=== PATIENT | male | born 1980 | race Two or more races ===

== ENCOUNTER 2023-12-21 15:14 | Inpatient (IN) | payer MEDICAID, SELFPAY ==
[2023-12-21] VITALS (10 sets, daily range): BP systolic 86–153; BP diastolic 52–92; PULSE 89–125; RESP 16–20; TEMP 36.5–38; O2SAT 93–98; BMI 32.8; BMI 34.4
--- NOTE | 2023-12-21 15:41 | XR_ITS ---
Examination: PA lateral chest 2 views Technique: Upright PA lateral chest 2 views Exam date and time: December 21, 2023 1552 hrs. Indications: Epigastric pain chest pain today Findings: No significant cardiac enlargement Mild prominence of the pulmonary vasculature. No lobar pneumonia or pulmonary edema Impression: Mild prominence of the pulmonary vasculature
--- NOTE | 2023-12-21 15:41 | XR_ITS ---
Examination: CT abdomen with intravenous contrast CT pelvis with intravenous contrast 2-D coronal reconstructions 2-D sagittal reconstructions Date and time of exam:December 21, 2023 1747 hrs. Comparison July 12, 2020 Indications: Onset left lower abdominal pain today, history diverticulitis. CTDI: vol (mGy) 7.99 DLP: (mGycm) 498 Technique: Multiple axial sections of the abdomen and pelvis have been obtained. 64 slice high-resolution scanner used. 3 mm axial sections have been obtained, post intravenous injection 60 cc Isovue-370 2-D sagittal, coronal reconstructions obtained. Low dose protocols were performed. One or more of the following dose reduction techniques were used; automated exposure control, adjustment of the mA and/or KV according to patient size, use of iterative reconstruction technique. Findings: Diffuse fatty infiltration throughout the liver No gallstones Spleen not enlarged No pancreatic or adrenal mass No renal or ureteral calculi, no hydronephrosis Aorta normal size The distal appendix is enlarged with marked inflammatory change There is reactive small bowel ileus No significant prostatomegaly Bladder intact Moderate osteopenia Impression: Findings are most consistent with prominent acute appendicitis The patient should be clinically correlated
--- NOTE | 2023-12-21 15:43 | PD.EDRME ---
Rapid Medical Screening Exam [facility] Arrival date/time: 12/21/23 15:14 Chief Complaint: Abdominal Pain Time Seen by Provider: 12/21/23 15:33 Vital signs: Vital Signs Temperature 98.9 F 12/21/23 15:21 Pulse Rate 89 12/21/23 15:21 Respiratory Rate 18 12/21/23 15:21 Blood Pressure 153/88 H 12/21/23 15:21 Pulse Oximetry (%) 98 12/21/23 15:21 Oxygen Delivery Method Room Air 12/21/23 15:21 [facility] Narrative: 43-year-old male here for sudden abdominal pain that began to the epigastric area now diffuse. States radiating to his back. States now having trouble going to have a bowel movement or urinating. Denies drinking or drug use. Denies fever. Denies history of gallstones or kidney stones. Denies history of abdominal surgery. Had 2 episodes of vomiting but no diarrhea no fever
[2023-12-21] MEDS: HYDROcodone/APAP 5/325 TABLET 1 TAB PO (15:50)
[2023-12-21] MEDS: KETOROLAC INJ 60 MG/2 ML VIAL 30 MG IM (15:51)
[2023-12-21 15:53] LABS: Base Excess, Venous 2 (-3-3); Lactate (Lactic Acid) 1.7 mMol/L (0.4-2.0); O2 Saturation, Venous 92 % (96-97); PCO2, Venous 35 mmHg (36-56); PO2, Venous 56 mmHg (15-58); pH, Venous 7.48 (7.33-7.66)
[2023-12-21 15:55] LABS: Basophils % (Auto) 0 % (0-2.5); Eosinophils # (Auto) 0.2 Thou/mm3 (0.0-0.5); Eosinophils % (Auto) 1 % (0-10); Hematocrit 42.1 % (41.0-53.0); Hemoglobin 14.6 g/dL (13.5-16.0); Immature Granulocytes % (Auto) 0 % (0-0); Immature Granulocytes Auto 0.06 Thou/mm3 (0.00-0.00); Lymphocytes # (Auto) 5.1 Thou/mm3 (1.0-4.8); Lymphocytes % (Auto) 29 % (10-50); Mean Corpuscular HGB Conc 34.7 g/dl (31.0-37.0); Mean Corpuscular Hemoglobin 28.3 pg (25.0-35.0); Mean Corpuscular Volume 82 fL (80-100); Monocytes # (Auto) 1.8 Thou/mm3 (0.0-0.8); Monocytes % (Auto) 10 % (0-12); Neutrophils # (Auto) 10.3 Thou/mm3 (1.8-7.7); Neutrophils % (Auto) 59 % (37-80); Nucleated Red Blood Cell % 0 /100 WBC (0); Platelet Count 293 Thou/mm3 (140-440); RDW Standard Deviation 39.7 fL (35.1-43.9); Red Blood Count 5.16 Miln/mm3 (4.50-5.90); White Blood Count 17.5 Thou/mm3 (3.8-10.6)
[2023-12-21 16:20] LABS: Alanine Aminotransferase 31 U/L (10-49); Albumin, Serum 4.6 gm/dL (3.5-5.0); Albumin/Globulin Ratio 1.6 (1.2-2.2); Alkaline Phosphatase 93 U/L (46-116); Anion Gap 7 (7-16); Aspartate Amino Transferase 17 U/L (0-34); BUN/Creatinine Ratio 10 Ratio (12-20); Bilirubin,Total 0.8 mg/dL (0.3-1.2); Blood Urea Nitrogen 9 mg/dL (9-23); Calcium 9.3 mg/dL (8.3-10.6); Calcium (Corrected) 9.3 mg/dL (8.5-10.1); Carbon Dioxide 25.6 mMol/L (20.0-31.0); Chloride 102 mMol/L (98-107); Creatinine (Component) 0.9 mg/dL (0.6-1.3); Estimated Creatinine Clearance 106.2 mL/min (>60); Globulin 2.9 gm/dL (2.3-3.5); Glucose 138 mg/dL (74-106); Lipase 30 U/L (12-53); Osmolality,Calculated 270 (275-295); Potassium 3.2 mMol/L (3.4-5.1); Sodium 135 mMol/L (136-145); Total Protein 7.5 gm/dL (5.7-8.2); eGFR > 60 See Note
[2023-12-21] MEDS: POTASSIUM CHLORIDE 10% 20 MEQ/15 ML UDC 40 MEQ PO (17:03)
[2023-12-21 17:05] LABS: Collection Type, Urine Clean Catch
[2023-12-21 17:15] LABS: Bilirubin,Urine Negative (Negative); Blood,Urine Negative (Negative); Calcium Oxalate Crystals,Urine 1+; Color,Urine Yellow (Lt Yel-Yel); Glucose, Urine Negative (Negative); Ketones,Urine Negative (Negative); Leukocyte Esterase,Urine Negative (Negative); Nitrite,Urine Negative (Negative); Protein,Urine 1+ (Neg - Trace); RBC,Urine 1 /hpf (0-3); Specific Gravity,Urine 1.028 (1.001-1.035); Squamous Epithelial Cell,Urine < 1 /hpf (0-5); WBC,Urine 2 /hpf (0-5)
[2023-12-21 17:17] LABS: Amphetamine/Methamp Scrn,U Negative (Negative); Barbiturate Screen,Urine Negative (Negative); Benzodiazepines Screen,Urine Negative (Negative); Benzoylecgonine Screen, Ur Negative (Negative); Fentanyl Screen,Urine Negative (Negative); Opiate Screen,Urine Negative (Negative); THC Screen,Urine Negative (Negative)
[2023-12-21 17:20] LABS: Clarity,Urine Turbid (Clear/Hazy)
[2023-12-21] MEDS: MORPHINE SULF INJ 10 MG/ML VIAL 4 MG IVP (17:22)
[2023-12-21] MEDS: RINGERS LACTATED 1000 ML 1,000 ML IV (17:23)
--- NOTE | 2023-12-21 17:40 | PC.NURSE ---
pt taken to CT.
--- NOTE | 2023-12-21 17:50 | EDNOTE_ITS ---
ED General RME/HPI General Chief complaint: Abdominal Pain Stated complaint: ABDOMINAL PAIN Time Seen by Provider: 12/21/23 15:33 Arrival date/time: 12/21/23 15:14 RME / HPI RME / HPI narrative: 43-year-old male here for sudden abdominal pain that began to the epigastric area now diffuse. States radiating to his back. States now having trouble going to have a bowel movement or urinating. Denies drinking or drug use. Denies fever. Denies history of gallstones or kidney stones. Denies history of abdominal surgery. Had 2 episodes of vomiting but no diarrhea no fever This section includes all my notes and documentations, including HPI, PE, and ED course. Werner Smith MD HPI: 43-year-old male here with a couple day history of abdominal pain with severe nausea. Has trouble localizing the pain. And describing the quality and quantity of the pain. Uncertain about exacerbating factors or relieving factors. No fever. No urinary symptoms. No history of abdominal surgery. No other complaints. ROS: Gastrointestinal: negative except as documented in HPI. Genitourinary: negative except as documented in HPI. Musculoskeletal: negative except as documented in HPI. Skin: negative except as documented in HPI. Neurological: negative except as documented in HPI. Physical Exam: General: Alert and oriented. In obvious pain. Eyes: Conjunctivae and lids clear. Lungs: No respiratory distress. Abdomen: Soft with diffuse tenderness, difficult to localize. Normal bowel sounds. No distension. No rebound or guarding. Back: No CVA tenderness. Skin: Warm and dry. Neuro: Alert and oriented X 3. Cranial Nerves II-XII grossly intact. No peripheral motor deficits. Musculoskeletal: All major joints and bones are not tender with no limited ROM. Treatments and diagnostics ordered. At 6 PM, the care of the patient was transferred to Dr Johnson. Werner Smith MD Related Data Previous Rx's ?Medication ?Instructions ?Recorded dicyclomine 20 mg tablet 20 mg PO QID #60 tabs 07/12/20 hydrocortisone acetate 25 mg 25 mg CO BID #24 ea 09/13/20 rectal suppository (Anusol-HC) Allergies Allergy/AdvReac Type Severity Reaction Status Date / Time No Known Allergies Allergy Verified 09/13/20 16:17 Course Quality Measures none Orders Category Date Time Status CT Screening NOW Care 12/21/23 15:42 Active IV [Insert IV] NOW Care 12/21/23 15:[address] abdomen pelvis w con Stat Exams 12/21/23 15:41 Taken XR chest 2V Stat Exams 12/21/23 15:41 Completed CBC Stat Lab 12/21/23 15:50 Completed CMP [Comprehensive Metabolic Panel] Stat Lab 12/21/23 15:50 Completed Drug Screen,Urine Stat Lab 12/21/23 16:24 Completed Lactic Acid [Lactate (Lactic Acid)] Stat Lab 12/21/23 15:50 Completed Lipase Stat Lab 12/21/23 15:50 Completed Procalcitonin Stat Lab 12/21/23 15:50 Completed UA [Urinalysis] Stat Lab 12/21/23 16:58 Completed VBG [Venous Blood Gas] Stat Lab 12/21/23 15:50 Completed HYDROcodone*/APAP 5/325 [[place] 5/325] Med 12/21/23 15:43 Discontinued 1 tab PO X1 ONE KCL 10% Liq UDC 15 ML Med 12/21/23 16:39 Discontinued 40 meq PO X1 ONE Ketorolac Inj [Toradol Inj] Med 12/21/23 15:41 Discontinued 30 mg IM X1 ONE Morphine Inj Med 12/21/23 17:18 Discontinued 4 mg IVP X1 ONE Ringers Lactated 1000 ml [Lactated Ringers] 1,000 ml Med 12/21/23 17:18 Active IV 1,000 mls/hr Vital Signs Vital signs: Vital Signs Temperature 98.9 F 12/21/23 15:21 Pulse Rate 89 12/21/23 15:21 Respiratory Rate 18 12/21/23 15:21 Blood Pressure 153/88 H 12/21/23 15:21 Pulse Oximetry (%) 98 12/21/23 15:21 Oxygen Delivery Method Room Air 12/21/23 15:21 [facility] Patient data External records reviewed:: None Clinical information provided by:: patient Social determinants that could affect healthcare access:: none Patient has the following chronic illnesses:: None How is presenting disease/condition affected by chronic disease/condition?: no chronic disease Evaluation data The following diagnostics were reviewed and interpreted by me:: lab results and radiology exam(s) Lab and/or radiology exams considered but not ordered:: None Interpretation Summary: Diagnostics pending Medications Medications considered but not ordered:: None Medication administrations:: Medication Administration History Lactated Ringer's (Lactated Ringers) 1,000 mls @ 1,000 mls/hr IV .Q1H ONE Stop: 12/21/23 18:17 Last Admin: 12/21/23 17:23 Dose: 1,000 mls/hr Documented By: MARIANNE Discontinued Medications Hydrocodone Bitart/Acetaminophen (Hydrocodone/Apap 5/325 Tablet) 1 tab PO X1 ONE Stop: 12/21/23 15:44 Last Admin: 12/21/23 15:50 Dose: 1 tab Documented By: MARIE Ketorolac Tromethamine (Ketorolac Inj 60 Mg/2 Ml Vial) 30 mg IM X1 ONE Stop: 12/21/23 15:42 Last Admin: 12/21/23 15:51 Dose: 30 mg Documented By: MARIE Morphine Sulfate (Morphine Sulf Inj 10 Mg/Ml Vial) 4 mg IVP X1 ONE Stop: 12/21/23 17:19 Last Admin: 12/21/23 17:22 Dose: 4 mg Documented By: MARIANNE Potassium Chloride (Potassium Chloride 10% 20 Meq/15 Ml Udc) 40 meq PO X1 ONE Stop: 12/21/23 16:40 Last Admin: 12/21/23 17:03 Dose: 40 meq Documented By: MARIANNE See chart Consultations Consultation(s) initiated? (list below): No Diagnosis Differential Diagnosis ED Complaint MDM: Appendicitis, biliary colic, colitis, SBO, UTI, pyelonephritis, GERD, PUD Most likely diagnosis given after review of the tests above:: Diagnostic tests pending Admission Indicated Admission indicated?: not indicated Explain why admission is indicated or not indicated:: Diagnostic tests pending Admission Request Was there a request for admission?: No Disposition Plan Disposition Plan: other (specify) (Diagnostics pending) Medical Decision Making Differential Diagnosis Differential Diagnosis: Appendicitis, biliary colic, colitis, SBO, UTI, pyelonephritis, GERD, PUD Lab Data 12/21/23 15:50 12/21/23 15:50 Labs: Lab Results 12/21/23 12/21/23 12/21/23 Range/Units 15:50 16:24 16:58 WBC 17.5 H (3.8-10.6) Thou/mm3 RBC 5.16 (4.50-5.90) Miln/mm3 Hgb 14.6 (13.5-16.0) g/dL Hct 42.1 (41.0-53.0) % MCV 82 (80-100) fL MCH 28.3 (25.0-35.0) pg MCHC 34.7 (31.0-37.0) g/dl RDW Std Deviation 39.7 (35.1-43.9) fL Plt Count 293 (140-440) Thou/mm3 Neut % (Auto) 59 (37-80) % Lymph % (Auto) 29 (10-50) % [place] % (Auto) 10 (0-12) % Eos % (Auto) 1 (0-10) % Baso % (Auto) 0 (0-2.5) % Neut # (Auto) 10.3 H (1.8-7.7) Thou/mm3 Lymph # (Auto) 5.1 H (1.0-4.8) Thou/mm3 [place] # (Auto) 1.8 H (0.0-0.8) Thou/mm3 Eos # (Auto) 0.2 (0.0-0.5) Thou/mm3 Baso # (Auto) 0.0 (0.0-0.2) Thou/mm3 Immature Gran # (Auto) 0.06 H (0.00-0.00) Thou/mm3 Absolute Nucleated RBC 0.00 (0.00-0.00) Thou/mm3 Immature Gran % 0 (0-0) % Nucleated RBC % 0 (0) /100 WBC VBG pH 7.48 (7.33-7.66) VBG pCO2 35 L (36-56) mmHg VBG pO2 56 (15-58) mmHg VBG O2 Sat ([place]) 92 L (96-97) % VBG Base Excess 2 (-3-3) Sodium 135 L (136-145) mMol/L Potassium 3.2 L (3.4-5.1) mMol/L Chloride 102 (98-107) mMol/L Carbon Dioxide 25.6 (20.0-31.0) mMol/L Anion Gap 7 (7-16) BUN 9 (9-23) mg/dL Creatinine 0.9 (0.6-1.3) mg/dL Estim Creat Clear Calc 106.2 (>60) mL/min eGFR > 60 (60 - ) See Note BUN/Creatinine Ratio 10 L (12-20) Ratio Glucose 138 H (74-106) mg/dL Calculated Osmolality 270 L (275-295) Lactic Acid 1.7 (0.4-2.0) mMol/L Calcium 9.3 (8.3-10.6) mg/dL Corrected Calcium 9.3 (8.5-10.1) mg/dL Total Bilirubin 0.8 (0.3-1.2) mg/dL AST 17 (0-34) U/L ALT 31 (10-49) U/L Alkaline Phosphatase 93 (46-116) U/L Total Protein 7.5 (5.7-8.2) gm/dL Albumin 4.6 (3.5-5.0) gm/dL Globulin 2.9 (2.3-3.5) gm/dL Albumin/Globulin Ratio 1.6 (1.2-2.2) Lipase 30 (12-53) U/L Procalcitonin 0.10 (0.0-0.49) ng/ml Ur Collection Type Clean Catch Urine Color Yellow (Lt Yel-Yel) Urine Clarity Turbid A (Clear/Hazy) Urine pH 6.0 (5.0-7.0) Ur Specific [place] 1.028 (1.001-1.035) Urine Protein 1+ A (Neg - Trace) Urine Glucose (UA) Negative (Negative) Urine Ketones Negative (Negative) Urine Blood Negative (Negative) Urine Nitrite Negative (Negative) Urine Bilirubin Negative (Negative) Urine Urobilinogen (Auto) 2.0 (0.0-1.0) mg/dL Ur Leukocyte Esterase Negative (Negative) Urine RBC 1 (0-3) /hpf Urine WBC 2 (0-5) /hpf Ur Squamous Epith Cells < 1 (0-5) /hpf Calcium Oxalate Crystal 1+ A (None) Urine Bacteria None (None) Urine Opiates Screen Negative (Negative) Urine Fentanyl Screen Negative (Negative) Ur Barbiturates Screen Negative (Negative) U Amphetamin/Meth Scrn Negative (Negative) U Benzodiazepines Scrn Negative (Negative) U Cocaine Metab Screen Negative (Negative) U Marijuana (THC) Screen Negative (Negative) Discharge Plan Prescriptions/Referrals Prescriptions/Med Rec: No Action dicyclomine 20 mg tablet 20 mg PO QID Qty: 60 0RF hydrocortisone acetate [Anusol-HC] 25 mg suppository 25 mg CO BID Qty: 24 0RF Referrals: Nayan Leung MD [Primary Care Provider] - In 1 week Problem List Clinical Impression: Abdominal pain Patient/Caregiver Discharge Instructions Print Language: Faroese
--- NOTE | 2023-12-21 18:15 | PC.NURSE ---
PROVIDER MADE AWARE OF TEMP OF 100.4.
--- NOTE | 2023-12-21 19:20 | EDNOTE_ITS ---
Emergency Room Addendum <Lilliam Agustin - Last Filed: 12/21/23 19:55> Addendum Narrative: 1800: Care assumed from Dr. Smith, the previous shift emergency physician. Past medical, surgical, social and family history reviewed. Vitals and home medications reviewed. I will assume the care of the patient at this time, pending diagnostic tests and final disposition. Please refer to the emergency department record for history and examination from initial visit.? HPI 43 year old male, otherwise healthy, no past surgeries, who started around yesterday noon with periumbilical pain. It has migrated to the lower both quadrants. He states left and right are hurting him. And he decreased difficulty having a bowel movement. Physical exam: Patient has got mild tenderness of his abdomen with exquisite right lower quadrant tenderness with focal rebound. CT abdomen/ pelvis, my interpretation: appears to have a ruptured appendix with significant sequel. Inflammation. CT results are pending. 1950: Discussed test HPI, PMHx, lab, radiology results and/or management with Dr. Rubio. Will review the CT results. Patient remains clinically stable throughout the emergency department visit. Re- assessment at the time of disposition demonstrates that the patient is in no acute distress. We reviewed all the results, analysis, and treatment plans. Patient is amenable to discharge. Strict return precautions were outlined. Patient was discharged in stable condition. RADIOLOGY: Procedure(s): CT abdomen pelvis w con Accession Number(s): [id number] cc: Lucía Kramer PA-C; Nayan Leung MD; Jude Caceres MD~ Examination: CT abdomen with intravenous contrast CT pelvis with intravenous contrast 2-D coronal reconstructions 2-D sagittal reconstructions Date and time of exam:December 21, 2023 1747 hrs. Comparison July 12, 2020 Indications: Onset left lower abdominal pain today, history diverticulitis. CTDI: vol (mGy) 7.99 DLP: (mGycm) 498 Technique: Multiple axial sections of the abdomen and pelvis have been obtained. 64 slice high-resolution scanner used. 3 mm axial sections have been obtained, post intravenous injection 60 cc Isovue-370 2-D sagittal, coronal reconstructions obtained. Low dose protocols were performed. One or more of the following dose reduction techniques were used; automated exposure control, adjustment of the mA and/or KV according to patient size, use of iterative reconstruction technique. Findings: Diffuse fatty infiltration throughout the liver No gallstones Spleen not enlarged No pancreatic or adrenal mass No renal or ureteral calculi, no hydronephrosis Aorta normal size The distal appendix is enlarged with marked inflammatory change There is reactive small bowel ileus No significant prostatomegaly Bladder intact Moderate osteopenia Impression: Findings are most consistent with prominent acute appendicitis The patient should be clinically correlated Dictated By: Jude Caceres MD <Brady Johnson MD - Last Filed: 12/21/23 23:30> Addendum Narrative: 1800: Care assumed from Dr. Smith, the previous shift emergency physician. Past medical, surgical, social and family history reviewed. Vitals and home medications reviewed. I will assume the care of the patient at this time, pending diagnostic tests and final disposition. HPI 43 year old male, otherwise healthy, no past surgeries, who started around yesterday noon with periumbilical pain. It has migrated to the lower both quadrants. He states left and right are hurting him. And he decreased difficulty having a bowel movement. Physical exam: Patient has got mild tenderness of his abdomen with exquisite r ight lower quadrant tenderness with focal rebound, positive rovsig/psoas CT abdomen/ pelvis, my interpretation: appears to have a ruptured appendix with significant sequel. Inflammation. CT results are pending. 1950: Discussed test HPI, PMHx, lab, radiology results and/or management with Dr. Rubio. For him clinically with concern for rupture or perirupture of his appendix despite the CT results. Will review the CT results. Patient remains clinically stable throughout the emergency department visit. Re- assessment at the time of disposition demonstrates that the patient is in no acute distress. We reviewed all the results, analysis, and treatment plans. Patient is amenable to discharge. Strict return precautions were outlined. Patient was discharged in stable condition. RADIOLOGY: Procedure(s): CT abdomen pelvis w con Accession Number(s): [id number] cc: Lucía Kramer PA-C; Nayan Leung MD; Jude Caceres MD~ Examination: CT abdomen with intravenous contrast CT pelvis with intravenous contrast 2-D coronal reconstructions 2-D sagittal reconstructions Date and time of exam:December 21, 2023 1747 hrs. Comparison July 12, 2020 Indications: Onset left lower abdominal pain today, history diverticulitis. Technique: Multiple axial sections of the abdomen and pelvis have been obtained. 64 slice high-resolution scanner used. 3 mm axial sections have been obtained, post intravenous injection 60 cc Isovue-370 2-D sagittal, coronal reconstructions obtained. Low dose protocols were performed. One or more of the following dose reduction techniques were used; automated exposure control, adjustment of the mA and/or KV according to patient size, use of iterative reconstruction technique. Findings: Diffuse fatty infiltration throughout the liver No gallstones Spleen not enlarged No pancreatic or adrenal mass No renal or ureteral calculi, no hydronephrosis Aorta normal size The distal appendix is enlarged with marked inflammatory change There is reactive small bowel ileus No significant prostatomegaly Bladder intact Moderate osteopenia Impression: Findings are most consistent with prominent acute appendicitis The patient should be clinically correlated Dictated By: Jued Caceres MD
[2023-12-21] MEDS: PIPER/TAZO 3.375 GM 3.375 GM/50 ML BAG IV (19:42)
[2023-12-21] MEDS: SODIUM CHLORIDE 0.9% 1000 ML 1,000 ML 999 ML IV (19:43)
--- NOTE | 2023-12-21 20:43 | PD.SURHP ---
[facility] Date of Admission 12/20/2023 Chief Complaint Chief Complaint: This patient is a 43-year-old male who only speaks Estonian. He was in his usual health until noon yesterday when he started having pain in the epigastric region which moved to the right lower quadrant today. He could not sleep last night. He was nauseated. He had a bowel movement yesterday. He had a similar pain 1 year ago and got better. He denies any other major medical illness. He denied any fever or chills. He has not eaten much today HPI As above Past Medical History Past Medical History CARDIAC: Negative Cardiac Disorders or Congestive Heart Failure RESPIRATORY: Negative Chronic Obstructive Pulmonary Disease (COPD) or Asthma GENITOURINARY: Negative Renal Disease ENDOCRINE: Negative Diabetes Mellitus Type 1 or Diabetes Mellitus Type 2 HEMATOLOGIC: Negative Sickle Cell Disease Social History SMOKING STATUS: Never smoker Meds Home Medications and Allergies Allergies Allergy/AdvReac Type Severity Reaction Status Date / Time No Known Allergies Allergy Verified 09/13/20 16:17 Exam Vital Signs Temp Pulse Resp BP Pulse Ox O2 Del Method 99.5 F 125 H 20 131/87 H 95 Room Air 12/21/23 19:51 12/21/23 19:51 12/21/23 19:51 12/21/23 19:51 12/21/23 19:51 12/21/23 19:51 Narrative Exam Physical examination revealed slightly obese male who is 5 foot 4 inches tall weighing 191 pounds with a BMI of 32.8. His vital signs revealed temperature of 100.4 earlier now it is 99.5. His heart rate is 125 Routine Cardiovascular Exam Comments: Sinus tachycardia Routine Abdominal Exam Comments: Abdomen is slightly distended due to his obesity. Patient has some tenderness in the upper abdomen as well as in the left side but more so in the right lower quadrant. He has a definitely some guarding and rigidity Routine Rectal Exam Comments: Deferred Results Results: Laboratory Laboratory Narrative: Patient's laboratory workup showed WBC of 17,500 with a shift to the lab Results: Imaging Imaging narrative: CT scan of the abdomen showed acute appendicitis Assessment & Plan Additional Assessment Additional comments: Impression: Acute appendicitis Mild obesity Plan Plan: I advised patient to undergo laparoscopic appendectomy. The procedure was explained to him in detail including potential complications like injury to the bowel etc. patient may also need open appendectomy in case the laparoscopic approach fails. He is agreeable. Patient has been started on Zosyn and he will be taken to the operating room tonight Quality Measures Quality Measures none
--- NOTE | 2023-12-21 20:45 | PC.NURSE ---
Report given to KAROLINA Dietz OR
--- NOTE | 2023-12-21 22:41 | PD.SUROPNT ---
Date of Procedure 12/21/23 Pre Op Diagnosis Acute appendicitis with possible perforation Post Op Diagnosis Acute appendicitis with perforation and localized peritonitis purulent material in the pelvis Procedure Laparoscopic appendectomy Findings Patient was found to have a considerable inflammation in the right lower quadrant with perforation of the appendix with free purulent material in the right gutter. Appendix was gangrenous and ruptured and has to be removed in 2 pieces Procedure Description After the patient was placed in supine position and anesthesia was administered with endotracheal intubation. Abdomen was prepped with ChloraPrep solution and draped in a sterile manner. A timeout was performed and a small incision was made just above the umbilicus. Fascia was cleaned and Veress needle was inserted to obtain a pneumoperitoneum up to 15 mmHg. Then I introduced a 12 mm trocar at the umbilicus with a 10 mm camera. Patient was kept in Trendelenburg position with the left lateral tilt. Intra-abdominal organs were visualized and this showed omentum covering the right lower quadrant. A 5 mm trocar was inserted in the suprapubic region under direct vision and using a laparoscopic [place] I move the omentum and identified the appendix. I could not see the appendix but there was inflammatory exudate over the anterior abdominal wall from the omentum. Appendix was inflamed in its entire length and was located medial to the cecum. It became clear that the appendix was ruptured and was leaking purulent material. Another 5 mm trocar was inserted in the left lower quadrant under direct vision and using Harmonic michelle I dissected the mesoappendix cauterizing the vessels. When the base of the appendix was reached this was stapled using an Endo cutter 35 power gina. Then the appendix was retrieved through the Endopouch through the umbilical port. Then after irrigating and cleaning the pelvis and the right lower quadrant all the trocars were pulled out and the pneumoperitoneum was let out. Fascia was closed with interrupted 0 Vicryl and then I injected half percent Marcaine with epinephrine for analgesia. Skin was then closed with interrupted 4-0 nylon stitches and a Tegaderm dressing was applied. Patient tolerated the procedure well and returned to recovery room in stable condition. Anesthesia GETA Pathology / specimen Other (Ruptured appendix) IVF Infused 600 Estimated Blood Loss 100 Condition Stable Disposition PACU Surgeon James Weiss MD Surgical Staff Operation Date: 12/21/23 20:30 Case Staff QUARANTINE INSPECTOR: Stuart,Red B applications engineer: Omaira Martinez
--- NOTE | 2023-12-21 22:49 | SUR.PHASEI ---
Pt. arrived to recovery via gurney, eyes closed, oral airway in place, pt. receiving 10 liters 02 via oxymask, rhonchi noted upon auscultation of lung sounds, equal expansion partha., lap sites x3 to abdomen, no active bleeding or redness noted. Report received from J Luis TURCIOS and Jayden NO.
--- NOTE | 2023-12-21 23:18 | SUR.PHASEI ---
Called and gave report on pt. s/p surgery to Cherie TURCIOS on M/S unit. Pt. is resting, responds to verbal commands.
--- NOTE | 2023-12-21 23:25 | SUR.PHASEI ---
Pt. transferred to room 368 via gurney with all of belongings, VSS, no c/o pain or nausea at this time, lap sites x3 Cherie LONG RN assumed care of pt.
[2023-12-21] MEDS: SODIUM CHLORIDE 0.9% 1000 ML 1,000 ML 125 ML IV (23:46)
[2023-12-22] VITALS (9 sets, daily range): BP systolic 111–123; BP diastolic 72–84; PULSE 85–108; RESP 16–23; TEMP 36.3–37.1; O2SAT 93–99
[2023-12-22] MEDS: MORPHINE SULF INJ 10 MG/ML VIAL 5 MG IVP ×5 (00:31→23:19)
--- NOTE | 2023-12-22 00:34 | PC.NURSE ---
Pt has a dior and credit card at bedside, refusing to take in the safe, wants to keep it at bedside.
[2023-12-22] MEDS: KETOROLAC INJ 30 MG/ML VIAL IVP ×3 (02:18→18:09)
[2023-12-22] MEDS: PIPER/TAZO INJ 4.5 GM in SODIUM CHLORIDE 0.9% (P) 100 ML IV ×3 (05:03→21:13)
[2023-12-22 05:36] LABS: Basophils # (Auto) 0.1 Thou/mm3 (0.0-0.2); Basophils % (Auto) 0 % (0-2.5); Eosinophils % (Auto) 0 % (0-10); Hematocrit 39.2 % (41.0-53.0); Hemoglobin 13.3 g/dL (13.5-16.0); Immature Granulocytes % (Auto) 1 % (0-0); Immature Granulocytes Auto 0.14 Thou/mm3 (0.00-0.00); Lymphocytes # (Auto) 0.8 Thou/mm3 (1.0-4.8); Lymphocytes % (Auto) 3 % (10-50); Mean Corpuscular HGB Conc 33.9 g/dl (31.0-37.0); Mean Corpuscular Hemoglobin 28.9 pg (25.0-35.0); Mean Corpuscular Volume 85 fL (80-100); Monocytes # (Auto) 1.1 Thou/mm3 (0.0-0.8); Monocytes % (Auto) 4 % (0-12); Neutrophils # (Auto) 24.2 Thou/mm3 (1.8-7.7); Neutrophils % (Auto) 92 % (37-80); Nucleated Red Blood Cell % 0 /100 WBC (0); Platelet Count 182 Thou/mm3 (140-440); RDW Standard Deviation 43.3 fL (35.1-43.9); Red Blood Count 4.61 Miln/mm3 (4.50-5.90); White Blood Count 26.2 Thou/mm3 (3.8-10.6)
[2023-12-22 06:09] LABS: Anion Gap 9 (7-16); Carbon Dioxide 22.9 mMol/L (20.0-31.0); Chloride 107 mMol/L (98-107); Potassium 4.1 mMol/L (3.4-5.1); Sodium 139 mMol/L (136-145)
--- NOTE | 2023-12-22 11:40 | PC.NURSE ---
Dr. Rubio at bedside, MD informed pt that will need to stay admitted for 3-4 more days.
[2023-12-22] MEDS: SODIUM CHLORIDE 0.9% 1000 ML 1,000 ML 125 ML IV (12:00)
--- NOTE | 2023-12-22 12:35 | PD.SURPROG ---
Documentation for date of: 12/22/23 Subjective Subjective Brief History: As above Narrative: The patient is feeling better and tolerating diet which is mostly clear liquids Exam Vital Signs Temp Pulse Resp BP Pulse Ox O2 Del Method O2 Flow Rate 97.8 F 85 18 112/72 98 Room Air 1 12/22/23 12:00 12/22/23 12:00 12/22/23 12:00 12/22/23 12:00 12/22/23 12:00 12/22/23 12:00 12/22/23 08:00 His vital signs showed no further fever and his heart rate is around 85 Routine Abdominal Exam Comments: Abdominal examination showed some active bowel sounds. Results Results: Laboratory Laboratory Narrative: Patient's WBC is around 20,000 Assessment & Plan Assessment Additional comments: Impression: Stable postoperative course following perforated appendicitis Plan Plan: We shall keep the patient on antibiotics and continue IV fluids. He will soon have diarrhea as a result of perforated appendicitis. Procedures Procedures Laparoscopic appendectomy
--- NOTE | 2023-12-22 12:48 | PC.SS ---
Rounding: antibiotics and continue IV fluids
[2023-12-22] MEDS: MORPHINE SULF INJ 10 MG/ML VIAL 3 MG IVP (16:14)
[2023-12-22] MEDS: ACETAMINOPHEN IVPB 1,000 MG/100 ML VIAL 250 MG IV (17:29)
--- NOTE | 2023-12-22 22:03 | PC.NURSE ---
Patient complaining of pain. Morphine and Toradol not due yet. KAROLINA Zeng will attempt to call Dr. Rubio.
--- NOTE | 2023-12-22 22:08 | PC.NURSE ---
Dr. Rubio called KAROLINA Zeng to check up on patient. Per Dr. Rubio: Verbal order - Noco 5mg PO q4h for pain Order already inputted. If patient has fever - give tylenol and cooling measures.
[2023-12-23] VITALS (9 sets, daily range): BP systolic 122–173; BP diastolic 83–101; PULSE 102–135; RESP 18–97; TEMP 36.3–37.9; O2SAT 92–97
[2023-12-23] MEDS: ACETAMINOPHEN IVPB 1,000 MG/100 ML VIAL 250 MG IV ×2 (00:07→07:27)
[2023-12-23] MEDS: KETOROLAC INJ 30 MG/ML VIAL IVP ×3 (03:10→15:57)
[2023-12-23] MEDS: MORPHINE SULF INJ 10 MG/ML VIAL 5 MG IVP ×4 (04:43→23:56)
[2023-12-23] MEDS: SODIUM CHLORIDE 0.9% 1000 ML 1,000 ML 125 ML IV ×2 (04:45→17:44)
[2023-12-23] MEDS: PIPER/TAZO INJ 4.5 GM in SODIUM CHLORIDE 0.9% (P) 100 ML IV ×3 (05:04→22:35)
[2023-12-23 06:01] LABS: Basophils % (Auto) 0 % (0-2.5); Eosinophils % (Auto) 0 % (0-10); Hematocrit 40.3 % (41.0-53.0); Hemoglobin 13.7 g/dL (13.5-16.0); Immature Granulocytes % (Auto) 0 % (0-0); Immature Granulocytes Auto 0.07 Thou/mm3 (0.00-0.00); Lymphocytes # (Auto) 0.9 Thou/mm3 (1.0-4.8); Lymphocytes % (Auto) 5 % (10-50); Mean Corpuscular Hemoglobin 28.8 pg (25.0-35.0); Mean Corpuscular Volume 85 fL (80-100); Monocytes # (Auto) 0.8 Thou/mm3 (0.0-0.8); Monocytes % (Auto) 4 % (0-12); Neutrophils # (Auto) 17.5 Thou/mm3 (1.8-7.7); Neutrophils % (Auto) 91 % (37-80); Nucleated Red Blood Cell % 0 /100 WBC (0); Platelet Count 264 Thou/mm3 (140-440); RDW Standard Deviation 43.7 fL (35.1-43.9); Red Blood Count 4.76 Miln/mm3 (4.50-5.90); White Blood Count 19.3 Thou/mm3 (3.8-10.6)
--- NOTE | 2023-12-23 09:56 | PD.SURPROG ---
Documentation for date of: 12/23/23 Subjective Subjective Brief History: As above Narrative: Patient is still complaining of considerable amount of pain requiring both morphine and Toradol. He has not passed flatus and he appears mildly distended. But he is tolerating diet Exam Vital Signs Temp Pulse Resp BP Pulse Ox O2 Del Method O2 Flow Rate 98.0 F 119 H 18 136/87 H 95 Room Air 1 12/23/23 07:53 12/23/23 07:53 12/23/23 07:53 12/23/23 07:53 12/23/23 07:53 12/23/23 07:53 12/22/23 08:00 Vital signs are normal other than a heart rate of 120 this morning Routine Abdominal Exam Comments: Abdominal examination showed hypoactive bowel sounds Results Results: Laboratory Laboratory Narrative: Laboratory results show WBC around 20,000 and is not decreased Assessment & Plan Assessment Additional comments: Impression: Slow recovery following laparoscopic appendectomy for perforated appendicitis Plan Plan: We shall continue present treatment consisting of IV antibiotics and IV fluids. At this time we cannot advance diet Procedures Procedures Laparoscopic appendectomy
[2023-12-23] MEDS: ONDANSETRON INJ 2 MG/ML INJ 2 ML 4 MG IV (13:00)
--- NOTE | 2023-12-23 15:14 | PC.NURSE ---
Notified Dr. Rubio pt is complaining of painful and difficulty breathing in right side. per MD order stat chest xray and call back with report
--- NOTE | 2023-12-23 15:15 | XR_ITS ---
Examination: AP chest single view TECHNIQUE: AP portable semiupright chest single view Exam date and time: December 23, 2023 1525 hours INDICATIONS: Difficulty breathing today. FINDINGS: Reduced inspiratory effort Subsegmental atelectasis at the lung bases No lobar pneumonia or pulmonary edema IMPRESSION: Poor inspiratory effort chest x-ray
--- NOTE | 2023-12-23 16:31 | XR_ITS ---
Examination: PA lateral chest 2 views TECHNIQUE: Upright PA lateral chest 2 views Exam date and time: December 23, 2023 1653 hours INDICATIONS: Status post appendectomy 2 days ago with difficulty breathing. FINDINGS: Atelectasis versus early pneumonia right base Minor prominence left ventricle Mild vascular congestion IMPRESSION: Atelectasis versus early pneumonia right base clinical correlation advised
--- NOTE | 2023-12-23 17:20 | PC.NURSE ---
Dr. Kruse notified of pt condition, pt complaining of shortness of breath, pain on inspiration, pt heart rate elevated, MD to come see pt.
--- NOTE | 2023-12-23 18:00 | PC.NURSE ---
Dr. Ramirez at bedside, MD assessed pt, MD gave orders for flagylMD requesting consult for a hospitalist, aware of current vital signs.
--- NOTE | 2023-12-23 18:30 | PD.SURPROG ---
Documentation for date of: 12/23/23 Subjective Subjective Brief History: As above Narrative: The patient was seen this afternoon because of persistent tachycardia and tachypnea requiring oxygen by nasal cannula Exam Vital Signs Temp Pulse Resp BP Pulse Ox O2 Del Method O2 Flow Rate 98 F 135 H 20 155/101 H 94 L Nasal Cannula 2 12/23/23 18:15 12/23/23 18:15 12/23/23 18:15 12/23/23 18:15 12/23/23 18:15 12/23/23 18:15 12/23/23 18:15 Patient is vital signs showed that his heart rate is up to 135 even though his temperature is normal and blood pressure is normal Routine Respiratory Exam Comments: Chest x-ray showed some rales Routine Abdominal Exam Comments: Abdominal examination shows slight distention but bowel sounds are heard Results Results: Imaging Imaging narrative: Patient had abdominal series today along with a chest x-ray which showed no pneumonia however there is a free air under the diaphragm which may be secondary to her recent laparoscopy appendectomy Assessment & Plan Assessment Additional comments: Impression: Slow but steady recovery following perforated appendicitis Increasing tachycardia and tachypnea Plan Plan: We shall add Flagyl to the present regimen of Zosyn. We shall ask hospitalist for an evaluation of his pulmonary condition. Procedures Procedures Laparoscopic appendectomy
--- NOTE | 2023-12-23 18:32 | PD.SURPROG ---
Documentation for date of: 12/23/23 Subjective Subjective Brief History: As above Narrative: Patient does not have any abdominal pain and he has been moved out of the ICU Exam Vital Signs Temp Pulse Resp BP Pulse Ox O2 Del Method O2 Flow Rate 98 F 135 H 20 155/101 H 94 L Nasal Cannula 2 12/23/23 18:15 12/23/23 18:15 12/23/23 18:15 12/23/23 18:15 12/23/23 18:15 12/23/23 18:15 12/23/23 18:15 His vital signs are Procedures Procedures Laparoscopic appendectomy
--- NOTE | 2023-12-23 19:33 | PC.NURSE ---
Addendum entered by Yasmine Redding RN 12/23/23 20:06: Per Dr. Raman, pt will be upgraded as med-tele patient. Will apply quality assurance monitor. Original Note: Dr. Raman at bedside to assess patient.
[2023-12-23] MEDS: metroNIDAZOLE/NS 500 MG IVPB 500 MG/100 ML BAG 200 MG IV (19:43)
--- NOTE | 2023-12-23 20:25 | PC.NURSE ---
Dr. Hernandez at bedside to see patient.
--- NOTE | 2023-12-23 20:40 | ECHO_ITS ---
Transthoracic Echo Report Ht (in): 64 Wt (lb): 201 Exam Location: Portable Status: Inpatient [place] Technician: Carlota Laughlin Indications: Procedure Performed: BP: 128 / 79 HR: 117 Rhythm: Tachycardia Technical Quality: Technically difficult study MEASUREMENTS (Male / Female) Normal Values 2D ECHO LV Diastolic Diameter PLAX 4.0 cm 4.2 - 5.9 / 3.9 - 5.3 cm LV Systolic Diameter PLAX 2.7 cm IVS Diastolic Thickness 0.9 cm 0.6 - 1.0 / 0.6 - 0.9 cm LVPW Diastolic Thickness 0.9 cm 0.6 - 1.0 / 0.6 - 0.9 cm LV Relative Wall Thickness 0.5 LVOT Diameter 1.7 cm LA Volume Index 15.8 cm?/m? 16 - 28 cm?/m? Ascending Aorta Diameter 2.5 cm M-MODE Aortic Root Diameter MM 2.6 cm LA Systolic Diameter MM 3.5 cm LA Ao Ratio MM 1.3 AV Cusp Separation MM 1.9 cm DOPPLER AV Peak Velocity 179.0 cm/s AV Peak Gradient 12.8 mmHg AV Mean Gradient 6.0 mmHg AV Velocity Time Integral 25.2 cm LVOT Peak Velocity 126.0 cm/s LVOT Peak Gradient 6.4 mmHg LVOT Velocity Time Integral 19.5 cm LVOT Cardiac Index 2504.8 cm?/min?m? AV Area Cont Eq vti 1.8 cm? AV Area Cont Eq pk 1.6 cm? MV Peak Velocity 86.1 cm/s MV Peak Gradient 3.0 mmHg MV Mean Velocity 62.4 cm/s MV Mean Gradient 2.0 mmHg MV Area PHT 4.0 cm? Mitral E Point Velocity 72.0 cm/s Mitral A Point Velocity 79.1 cm/s Mitral E to A Ratio 0.9 LV E' Lateral Velocity 8.3 cm/s Mitral E to LV E' Lateral Ratio 8.7 LV E' Septal Velocity 10.7 cm/s Mitral E to LV E' Septal Ratio 6.7 FINDINGS Left Ventricle Normal left ventricular size, wall thickness, systolic function with no obvious regional wall motion abnormalities. The ejection fraction is visually estimated at 60-65%. Right Ventricle The right ventricle not well visualized. Left Atrium The left atrium is normal by two-dimensional, color flow and Doppler imaging with no structural abnormalities, no thrombus formation present. Right Atrium Right atrium is not well visualized. Atrial Septum The interatrial septum appears normal with no evidence of a shunt. Aorta The aorta is normal by two-dimensional, color flow and Doppler interrogation. Mitral Valve The mitral valve is normal by two-dimensional, color flow and Doppler interrogation. There is trace mitral valve regurgitation. Aortic Valve The aortic valve is trileaflet and normal by two-dimensional, color flow and Doppler interrogation. There is no significant aortic valve regurgitation. Tricuspid Valve The tricuspid valve is normal by two-dimensional, color flow and Doppler interrogation. There is tra ce tricuspid valve regurgitation. Pulmonic Valve There is no significant pulmonic valve regurgitation. Vessels The pulmonary artery appears normal. The inferior vena cava pulmonary and hepatic veins appear kris l. Pericardium The pericardium is normal by two-dimensional imaging. There is no significant pericardial effusion. CONCLUSIONS Indication: Chest pain Normal LV size and function. Estimated EF 60-65% RA and RV not well visualized Trace MR, TR. Mehran Slade (Electronically Signed) Final Date: 24 December 2023 14:25
--- NOTE | 2023-12-23 21:12 | ESCONSULT_ITS ---
HPI Data of Consult Requesting Physician: James Weiss MD Admitting Provider: James Weiss MD Attending Provider: James Weiss MD Primary Care Provider: Nayan Leung MD Consult Narrative History of present illness: 43-year-old male patient with no significant past medical history came into ED on 12/21/2023 for abdominal pain. Patient had elevated WBC of 17.5. CT of abdomen indicated appendicitis, general surgeon Dr. Rubio was consulted and patient underwent appendectomy. Post laparotomy patient was found to have appendicitis with perforation and localized peritonitis with purulent material within the pelvis. Appendix was found to be gangrenous and ruptured and had to be removed in 2 pieces. Primary team was consulted on 12/23/2023 regarding sinus tachycardia, shortness of breath and distended abdomen. Chest CT was indicative of: Mild vascular congestion and atelectasis versus early pneumonia of right base. Physical exam was significant for bilateral mild crackles of lower lobes and mild swelling of the lower extremities. Fluids discontinued, patient placed on 2L nasal cannula and further workup will be ordered. Medical Hx: As above Medications: None Allergies: NKDA Social Hx: Denies smoking cigarettes, social drinker CODE STATUS: Full code #Sinus tachycardia Most likely secondary to volume overload vs pain vs less likely PE Plan: ? Stop fluids ? Monitor intake and output ? BNP and D-dimer ordered ? If elevated D-dimer, consider chest CTA ? Echocardiogram ordered ? Follow-up TSH ? Morphine 1 mg every 2 hours as needed for pain #s/p perforated appendectomy #Distended abdomen Post day 2 of appendectomy Patient was found to have perforation and localized peritonitis with purulent material within the pelvis Patient has not passed stool and flatus for last x 4 days Plan: ? Continue Zosyn for peritonitis prophylaxis ? Further management per primary Dr. Rubio #AHRF secondary to #Atelectasis of bilateral bases #PE rule out Most likely secondary to decreased inspiratory effort due to pain Plan: ? Treat underlying condition ? Incentive spirometry ? Supplemental oxygen as needed ? Consider chest physiotherapy ? Was considering chest CTA if D-dimer elevated, per Nurse Dr. Rubio doesn't want any imaging, f/u with Dr. Rubio in a.m. Health Maintenance Dispo: Medicine team consulted for management of sinus tachycardia and shortness of breath Diet: CLD per Dr. Rubio DVT/PPx:Heparin GI ppx: Protonix Lines: PIV Code Status: Full Code This patient care was discussed with my attending Dr. Danisha Hernandez MD PGY-2 Disclaimer: Minor errors in bloom conveyor operator may be present since this note was dictated by speech recognition software. cc:: cc: James Weiss MD Exam Vital Signs Temp Pulse Resp BP Pulse Ox O2 Del Method O2 Flow Rate 97.4 F 130 H 20 149/96 H 92 L Nasal Cannula 2 12/23/23 20:00 12/23/23 20:00 12/23/23 20:00 12/23/23 20:00 12/23/23 20:00 12/23/23 20:00 12/23/23 20:00 Results Labs 12/23/23 04:58 12/22/23 04:36 Labs: Short CBC 12/23/23 Range/Units 04:58 WBC 19.3 H D (3.8-10.6) Thou/mm3 Hgb 13.7 (13.5-16.0) g/dL Hct 40.3 L (41.0-53.0) % Plt Count 264 D (140-440) Thou/mm3 ABG Interpretation ABG results: 12/21/23 15:50 VBG pH 7.48 VBG pCO2 35 L VBG pO2 56 VBG Base Excess 2 Quality Measures Quality Measures none Medications Home Medications and Allergies Home Medications ?Medication ?Instructions ?Recorded ?Confirmed ?Type No Known Home Medications 12/22/23 12/22/23 History Allergies Allergy/AdvReac Type Severity Reaction Status Date / Time No Known Allergies Allergy Verified 12/21/23 23:25 Visit Medications Acetaminophen (Acetaminophen 325 Mg Tablet) 650 mg PO Q6HR PRN PRN Reason: FEVER>101.5 Stop: 01/20/24 23:30 Acetaminophen (Ofirmev Inj) 1,000 mg in 100 mls @ 250 mls/hr IV Q6HR PRN PRN Reason: PAIN SCALE 4-10(Mod-Sev Stop: 12/24/23 22:27 Last Admin: 12/23/23 07:27 Dose: 250 mls/hr Piperacillin Sod/Tazobactam (Sod 4.5 gm/ Sodium Chloride) 100 mls @ 25 mls/hr IV Q8HR TAL Stop: 12/29/23 05:59 Last Admin: 12/23/23 14:19 Dose: 25 mls/hr Metronidazole (Flagyl 500 Mg Iv) 500 mg in 100 mls @ 200 mls/hr IV Q8HR TAL Stop: 12/30/23 18:25 Last Admin: 12/23/23 19:43 Dose: 200 mls/hr Ketorolac Tromethamine (Ketorolac Inj 30 Mg/Ml Vial) 30 mg IVP Q6HR PRN PRN Reason: PAIN SCALE 1-3 (mild Stop: 12/26/23 23:30 Last Admin: 12/23/23 15:57 Dose: 30 mg Morphine Sulfate (Morphine Sulf Inj 10 Mg/Ml Vial) 5 mg IVP Q4HR PRN PRN Reason: PAIN SCALE 4-10(Mod-Sev Stop: 12/26/23 23:54 Last Admin: 12/23/23 17:51 Dose: 5 mg Morphine Sulfate (Morphine Sulf Inj 10 Mg/Ml Vial) 1 mg IVP Q3H PRN PRN Reason: PAIN Stop: 12/28/23 20:41 Ondansetron HCl (Ondansetron Inj 2 Mg/Ml Inj 2 Ml) 4 mg IV Q4HR PRN PRN Reason: NAUSEA OR VOMITING Stop: 01/20/24 23:30 Last Admin: 12/23/23 13:00 Dose: 4 mg Discontinued Medications Acetaminophen (Acetaminophen 325 Mg Tablet) 650 mg PO Q6HR PRN PRN Reason: [id number] Stop: 01/20/24 23:30 Hydrocodone Bitart/Acetaminophen (Hydrocodone/Apap 5/325 Tablet) 1 tab PO X1 ONE Stop: 12/21/23 15:44 Last Admin: 12/21/23 15:50 Dose: 1 tab Hydrocodone Bitart/Acetaminophen (Hydrocodone/Apap 5/325 Tablet) 1 tab PO Q4HR PRN PRN Reason: PAIN Stop: 12/27/23 22:06 Fentanyl Citrate (Fentanyl Cit Inj 50 Mcg/Ml Amp 2ml) 50 mcg IV Q5M PRN PRN Reason: PAIN SCALE 4-6 (Moderate Stop: 12/22/23 00:28 Lactated Ringer's (Lactated Ringers) 1,000 mls @ 1,000 mls/hr IV .Q1H ONE Stop: 12/21/23 18:17 Last Infusion: 12/21/23 18:45 Dose: Infused Sodium Chloride (Ns) 1,000 mls @ 999 mls/hr IV .Q1H1M ONE Stop: 12/21/23 20:06 Last Infusion: 12/21/23 21:17 Dose: Infused Piperacillin/Tazobactam/Dextrose (Zosyn) 3.375 gm in 50 mls @ 100 mls/hr IV X1 ONE Stop: 12/21/23 19:35 Last Infusion: 12/21/23 20:15 Dose: Infused Sodium Chloride (Ns) 1,000 mls @ 100 mls/hr IV .Q10H TAL Stop: 01/20/24 20:44 Sodium Chloride (Ns) 1,000 mls @ 125 mls/hr IV .Q8H TAL Stop: 01/20/24 23:30 Last Admin: 12/23/23 17:44 Dose: 125 mls/hr Influenza Virus Vaccine Quadrival (Influenza Virus Quadrivalent 0.5 Ml Syringe) 0.5 ml IMi .ONCE ONE Stop: 12/22/23 00:02 Ketorolac Tromethamine (Ketorolac Inj 60 Mg/2 Ml Vial) 30 mg IM X1 ONE Stop: 12/21/23 15:42 Last Admin: 12/21/23 15:51 Dose: 30 mg Ketorolac Tromethamine (Ketorolac Inj 30 Mg/Ml Vial) 30 mg IVP Q6HR PRN PRN Reason: PAIN 1-6 (mild-mod Stop: 12/26/23 23:30 Morphine Sulfate (Morphine Sulf Inj 10 Mg/Ml Vial) 4 mg IVP X1 ONE Stop: 12/21/23 17:19 Last Admin: 12/21/23 17:22 Dose: 4 mg Morphine Sulfate (Morphine Sulf Inj 10 Mg/Ml Vial) 5 mg IVP Q4HR PRN PRN Reason: PAIN SCALE 4-10(Mod-Sev Stop: 12/26/23 23:54 Last Admin: 12/23/23 04:43 Dose: 5 mg Morphine Sulfate (Morphine Sulf Inj 10 Mg/Ml Vial) 3 mg IVP X1 ONE Stop: 12/22/23 15:59 Last Admin: 12/22/23 16:14 Dose: 3 mg Ondansetron HCl (Ondansetron Inj 2 Mg/Ml Inj 2 Ml) 4 mg IV X1 ONE Stop: 12/21/23 22:29 Last Admin: 12/21/23 23:52 Dose: Not Given Potassium Chloride (Potassium Chloride 10% 20 Meq/15 Ml Udc) 40 meq PO X1 ONE Stop: 12/21/23 16:40 Last Admin: 12/21/23 17:03 Dose: 40 meq Assessment & Plan Attending Provider Attestation/Addendum I reviewed labs, imaging, EKG, home medications and prior available records. Face to face evaluation was performed by me. I have personally examined the patient and discussed assessment and plan with the IM team. I reviewed the resident note and agree with the plan with exceptions as below. 43-year-old male who initially presented with abdominal pain for which she was found to have acute appendicitis status post appendectomy. Hospital course was complicated by persistent tachycardia for which internal medicine team was contacted. SIRS/sinus tachycardia: Differential diagnosis includes in the setting of pain versus hypoxia versus sepsis. Doubt dehydration given the significant amount of IV fluids he received as well as a mild vascular congestion on imaging studies. Held IV fluids given the crackles on lung auscultation. Wean off oxygen as tolerated. Continue IV Zosyn. Follow-up blood cultures. Send TSH. Management of atelectasis with incentive spirometry. Management of hypoxia as below. Acute hypoxic respiratory failure: Likely in setting of atelectasis versus vascular congestion. Held IV fluids. No Lasix for now. No prior history of CHF but will order echocardiogram. Ordered D-dimer. If positive then consider CTA of the chest to rule out PE. He is on subcutaneous heparin for DVT prophylaxis. Status post appendectomy: Continue to manage pain as needed. Continue wound care. Surgery team is following.
[2023-12-23 21:57] LABS: B-Type Natriuretic Peptide 44 pg/mL (0-100)
[2023-12-23 22:01] LABS: D-Dimer 2900 ng/mL (<600)
[2023-12-23 22:02] LABS: Free T4 (Free Thyroxine) 1.65 ng/dL (0.89-1.76); Thyroid Stimulating Hormone 1.49 uIU/mL (0.55-4.78)
--- NOTE | 2023-12-23 23:18 | PC.NURSE ---
Per Dr. Ramiro Weiss, no need for CT at this time. Dr. Hernandez made aware.
[2023-12-24] VITALS (51 sets, daily range): BP systolic 107–184; BP diastolic 67–106; PULSE 110–155; RESP 15–35; TEMP 36.1–37.6; O2SAT 87–99; BMI 34.3
[2023-12-24] MEDS: KETOROLAC INJ 30 MG/ML VIAL IVP ×2 (03:45→13:26)
[2023-12-24] MEDS: HEPARIN SOD INJ 5000 UNIT/ML VIAL SC ×2 (05:16→13:25)
[2023-12-24] MEDS: metroNIDAZOLE/NS 500 MG IVPB 500 MG/100 ML BAG 200 MG IV ×2 (05:17→14:18)
[2023-12-24] MEDS: PIPER/TAZO INJ 4.5 GM in SODIUM CHLORIDE 0.9% (P) 100 ML IV ×2 (06:00→13:25)
[2023-12-24 06:01] LABS: Basophils # (Auto) 0.1 Thou/mm3 (0.0-0.2); Basophils % (Auto) 0 % (0-2.5); Eosinophils % (Auto) 0 % (0-10); Hematocrit 39.8 % (41.0-53.0); Hemoglobin 13.3 g/dL (13.5-16.0); Immature Granulocytes % (Auto) 1 % (0-0); Immature Granulocytes Auto 0.17 Thou/mm3 (0.00-0.00); Lymphocytes # (Auto) 0.7 Thou/mm3 (1.0-4.8); Lymphocytes % (Auto) 3 % (10-50); Mean Corpuscular HGB Conc 33.4 g/dl (31.0-37.0); Mean Corpuscular Hemoglobin 28.1 pg (25.0-35.0); Mean Corpuscular Volume 84 fL (80-100); Monocytes # (Auto) 1.9 Thou/mm3 (0.0-0.8); Monocytes % (Auto) 8 % (0-12); Neutrophils # (Auto) 22.1 Thou/mm3 (1.8-7.7); Neutrophils % (Auto) 88 % (37-80); Nucleated Red Blood Cell % 0 /100 WBC (0); Platelet Count 277 Thou/mm3 (140-440); RDW Standard Deviation 44.1 fL (35.1-43.9); Red Blood Count 4.73 Miln/mm3 (4.50-5.90)
[2023-12-24 06:51] LABS: Alanine Aminotransferase 16 U/L (10-49); Albumin, Serum 3.7 gm/dL (3.5-5.0); Albumin/Globulin Ratio 1.4 (1.2-2.2); Alkaline Phosphatase 83 U/L (46-116); Anion Gap 10 (7-16); Aspartate Amino Transferase < 8 U/L (0-34); BUN/Creatinine Ratio 11 Ratio (12-20); Bilirubin,Total 1.4 mg/dL (0.3-1.2); Blood Urea Nitrogen 10 mg/dL (9-23); Calcium 8.9 mg/dL (8.3-10.6); Calcium (Corrected) 9.1 mg/dL (8.5-10.1); Carbon Dioxide 23.8 mMol/L (20.0-31.0); Chloride 100 mMol/L (98-107); Creatinine (Component) 0.9 mg/dL (0.6-1.3); Estimated Creatinine Clearance 108.9 mL/min (>60); Globulin 2.6 gm/dL (2.3-3.5); Glucose 151 mg/dL (74-106); Osmolality,Calculated 270 (275-295); Sodium 134 mMol/L (136-145); Total Protein 6.3 gm/dL (5.7-8.2); eGFR > 60 See Note
--- NOTE | 2023-12-24 06:51 | XR_ITS ---
Examination: CTA chest with intravenous contrast 2-D reconstructions 3-D reconstructions, vascular Date and time of exam: December 24, 2023 2133 hours INDICATIONS: Onset shortness of breath chest pain today CTDI: vol (mGy) 17.25 DLP: (mGycm) 396.35 Technique: Multiple axial sections of the thorax have been obtained. 3 mm slice thickness, from below the hemidiaphragms to above the apices of the lungs. Mediastinal and lung density settings have been obtained. 2-D sagittal and coronal reconstructions. 3-D angiographic renderings, 3-D volume renderings, 3D post processing, vascular maximum intensity projections obtained. Contrast administered is 100 cc Isovue-370. Low dose protocols were performed. One or more of the following dose reduction techniques were used; automated exposure control, adjustment of the mA and/or KV according to patient size, use of iterative reconstruction technique. Findings: No thoracic aortic aneurysm dilatation or dissection No pulmonary artery emboli Significant pneumonia right base with small right pleural effusion Mild enlargement cardiac contour Adequate bone density IMPRESSION: Negative for pulmonary artery emboli Significant pneumonia right base
--- NOTE | 2023-12-24 06:54 | XR_ITS ---
Examination: CT abdomen with intravenous contrast CT pelvis with intravenous contrast 2-D coronal reconstructions 2-D sagittal reconstructions Date and time of exam:December 24, 2023 0929 hours INDICATIONS: Tachycardia leukocytosis abdominal pain today. CTDI: vol (mGy) 10.7 DLP: (mGycm) 689 Technique: Multiple axial sections of the abdomen and pelvis have been obtained. 64 slice high-resolution scanner used. 3 mm axial sections have been obtained, post intravenous injection 100 cc Isovue-370 2-D sagittal, coronal reconstructions obtained. Low dose protocols were performed. One or more of the following dose reduction techniques were used; automated exposure control, adjustment of the mA and/or KV according to patient size, use of iterative reconstruction technique. Findings: Pneumonia right base with small right pleural effusion Diffuse fatty infiltration throughout the liver Pneumoperitoneum Fluid subcapsular to the liver Distended gallbladder Fluid collection below the liver pericecal, consider abscess, AP dimension 7.7 cm, cephalocaudad dimension 20 cm mediolateral dimension 4 cm appendix not visualized Small bowel ileus No obstruction Urinary bladder intact IMPRESSION: Pneumonia right base with right pleural effusion Pneumoperitoneum Fluid subcapsular to the liver Pericecal fluid, consider abscess
[2023-12-24 07:41] LABS: Lactate (Lactic Acid) 2.4 mMol/L (0.4-2.0)
[2023-12-24] MEDS: POTASSIUM CHLORIDE 10% 20 MEQ/15 ML UDC 40 MEQ PO ×2 (09:05→13:26)
[2023-12-24] MEDS: PANTOPRAZOLE 20 MG TABLET PO (09:06)
[2023-12-24] MEDS: MORPHINE SULF INJ 10 MG/ML VIAL 5 MG IVP ×2 (09:06→18:46)
[2023-12-24 10:37] LABS: Reflex Lactate? Y
--- NOTE | 2023-12-24 11:13 | PD.RESCONSUL ---
HPI Data of Consult Requesting Physician: Pierre Hancock MD Admitting Provider: James Weiss MD Attending Provider: Pierre Hancock MD Primary Care Provider: Nayan Leung MD Consult Narrative History of present illness: Andrew Pyle is a 43-year-old male with no significant PMHx came into ED on 12/21/2023 for abdominal pain. Pain started in epigastric region that then migrated to right lower quadrant. Patient underwent laparoscopic appendectomy on 12/20 that showed considerable inflammation in RLQ with perforated appendix, free purulent material, and gangrenous appendix that was removed in 2 pieces. CXR showed no pneumonia but free-air under diaphragm. Patient now on zosyn and flagyl. Medicine team consulted on 12/23/2023 regarding sinus tachycardia, SOB and distended abdomen. CT chest: mild vascular congestion and atelectasis versus early pneumonia of right base. CT chest negative for pulmonary embolism. CT A/P showed pneumonia in the right lung base with right pleural effusion, pneumoperitoneum, subscapular fluid, pericecal fluid (consider abscess). General: AOx3, mild distress from pain, able to speak full sentences HEENT: NC/AT, mucous membranes moist, bilateral sclera anicteric Cardiovascular: regular rate and rhythm, S1/S2 present, no murmurs appreciated Pulmonary: Crackles appreciated in right lung base Abdominal: Distended, firm, tender in right lower quadrant and right upper quadrant; no rebound/guarding Musculoskeletal: normal ROM, no peripheral edema Skin: warm and dry, intact, no rashes Neuro: CN II-XII intact, no focal deficits #Acute hypoxic respiratory failure, secondary to #Atelectasis versus #Pneumonia, right lung base CTA chest negative for PE. CT A/P showed right-sided pleural effusion and pneumonia right lung base. -Continue Zosyn and Flagyl -Continue incentive spirometry -Wean off supplemental oxygen as tolerated #Sepsis due to intra-abdominal abscess versus pneumonia #Pneumoperitoneum #Subscapular fluid #Pericecal fluid versus abscess HR 140, RR 26, WBC 16.0. Source intra-abdominal abscess versus pneumonia. -Follow-up blood cultures -Continue IV antibiotics as above #Status post appendectomy, postop day 3 Last bowel movement 5 days ago, patient currently not passing gas. -NG tube placed -Continue wound care -Pain management per surgery #Hypokalemia Replete as needed Hospital management: Disposition: 2-3 more hospital nights Fluids: Deferred as patient has received significant amount of IVF Diet: Clear liquid Lines: Peripheral DVT prophylaxis: Heparin SC GI prophylaxis: Pantoprazole 20 mg p.o. daily Villarreal: Not indicated CODE STATUS: full code ----- Plan discussed with attending physician Dr. Hancock and senior resident physician Dr. Tami Bryant MD PGY-1 Internal Medicine cc:: cc: Pierre Hancock MD Exam Vital Signs Temp Pulse Resp BP Pulse Ox O2 Del Method O2 Flow Rate 97 F 117 H 30 H 128/79 97 Nasal Cannula 2 12/24/23 08:00 12/24/23 08:00 12/24/23 08:00 12/24/23 08:00 12/24/23 08:00 12/24/23 08:00 12/24/23 08:00 Results Labs 12/24/23 04:56 12/24/23 20:00 Labs: Short CBC 12/24/23 Range/Units 04:56 WBC 25.0 H D (3.8-10.6) Thou/mm3 Hgb 13.3 L (13.5-16.0) g/dL Hct 39.8 L (41.0-53.0) % Plt Count 277 (140-440) Thou/mm3 BMP 12/24/23 04:56 Sodium 134 L Potassium 3.0 L D Chloride 100 Carbon Dioxide 23.8 BUN 10 Creatinine 0.9 Glucose 151 H Calcium 8.9 Liver Function 12/24/23 Range/Units 04:56 Total Bilirubin 1.4 H D (0.3-1.2) mg/dL AST < 8 (0-34) U/L ALT 16 (10-49) U/L Alkaline Phosphatase 83 (46-116) U/L Albumin 3.7 D (3.5-5.0) gm/dL ABG Interpretation ABG results: 12/21/23 15:50 VBG pH 7.48 VBG pCO2 35 L VBG pO2 56 VBG Base Excess 2 Quality Measures Quality Measures none Medications Home Medications and Allergies Home Medications ?Medication ?Instructions ?Recorded ?Confirmed ?Type No Known Home Medications 12/22/23 12/22/23 History Allergies Allergy/AdvReac Type Severity Reaction Status Date / Time No Known Allergies Allergy Verified 12/21/23 23:25 Visit Medications Acetaminophen (Acetaminophen 325 Mg Tablet) 650 mg PO Q6HR PRN PRN Reason: FEVER>101.5 Stop: 01/20/24 23:30 Heparin Sodium (Porcine) (Heparin Sod Inj 5000 Unit/Ml Vial) 5,000 unit SC Q8HR [facility] Stop: 01/07/24 05:59 Last Admin: 12/24/23 05:16 Dose: 5,000 unit Piperacillin Sod/Tazobactam (Sod 4.5 gm/ Sodium Chloride) 100 mls @ 25 mls/hr IV Q8HR [facility] Stop: 12/29/23 05:59 Last Admin: 12/24/23 06:00 Dose: 25 mls/hr Metronidazole (Flagyl 500 Mg Iv) 500 mg in 100 mls @ 200 mls/hr IV Q8HR [facility] Stop: 12/30/23 18:25 Last Admin: 12/24/23 05:17 Dose: 200 mls/hr Ketorolac Tromethamine (Ketorolac Inj 30 Mg/Ml Vial) 30 mg IVP Q6HR PRN PRN Reason: PAIN SCALE 1-3 (mild Stop: 12/26/23 23:30 Last Admin: 12/24/23 03:45 Dose: 30 mg Morphine Sulfate (Morphine Sulf Inj 10 Mg/Ml Vial) 1 mg IVP Q3H PRN PRN Reason: PAIN Stop: 12/28/23 20:41 Morphine Sulfate (Morphine Sulf Inj 10 Mg/Ml Vial) 5 mg IVP Q4HR PRN PRN Reason: PAIN SCALE 4-10(Mod-Sev Stop: 12/26/23 23:54 Ondansetron HCl (Ondansetron Inj 2 Mg/Ml Inj 2 Ml) 4 mg IV Q4HR PRN PRN Reason: NAUSEA OR VOMITING Stop: 01/20/24 23:30 Last Admin: 12/23/23 13:00 Dose: 4 mg Pantoprazole Sodium (Pantoprazole 20 Mg Tablet) 20 mg PO QDAY [facility] Stop: 01/23/24 08:59 Last Admin: 12/24/23 09:06 Dose: 20 mg Discontinued Medications Acetaminophen (Acetaminophen 325 Mg Tablet) 650 mg PO Q6HR PRN PRN Reason: [id number] Stop: 01/20/24 23:30 Hydrocodone Bitart/Acetaminophen (Hydrocodone/Apap 5/325 Tablet) 1 tab PO X1 ONE Stop: 12/21/23 15:44 Last Admin: 12/21/23 15:50 Dose: 1 tab Hydrocodone Bitart/Acetaminophen (Hydrocodone/Apap 5/325 Tablet) 1 tab PO Q4HR PRN PRN Reason: PAIN Stop: 12/27/23 22:06 Fentanyl Citrate (Fentanyl Cit Inj 50 Mcg/Ml Amp 2ml) 50 mcg IV Q5M PRN PRN Reason: PAIN SCALE 4-6 (Moderate Stop: 12/22/23 00:28 Lactated Ringer's (Lactated Ringers) 1,000 mls @ 1,000 mls/hr IV .Q1H ONE Stop: 12/21/23 18:17 Last Infusion: 12/21/23 18:45 Dose: Infused Sodium Chloride (Ns) 1,000 mls @ 999 mls/hr IV .Q1H1M ONE Stop: 12/21/23 20:06 Last Infusion: 12/21/23 21:17 Dose: Infused Piperacillin/Tazobactam/Dextrose (Zosyn) 3.375 gm in 50 mls @ 100 mls/hr IV X1 ONE Stop: 12/21/23 19:35 Last Infusion: 12/21/23 20:15 Dose: Infused Sodium Chloride (Ns) 1,000 mls @ 100 mls/hr IV .Q10H TAL Stop: 01/20/24 20:44 Acetaminophen (Ofirmev Inj) 1,000 mg in 100 mls @ 250 mls/hr IV Q6HR PRN PRN Reason: PAIN SCALE 4-10(Mod-Sev Stop: 12/24/23 22:27 Last Admin: 12/23/23 07:27 Dose: 250 mls/hr Sodium Chloride (Ns) 1,000 mls @ 125 mls/hr IV .Q8H TAL Stop: 01/20/24 23:30 Last Admin: 12/23/23 17:44 Dose: 125 mls/hr Influenza Virus Vaccine Quadrival (Influenza Virus Quadrivalent 0.5 Ml Syringe) 0.5 ml IMi .ONCE ONE Stop: 12/22/23 00:02 Ketorolac Tromethamine (Ketorolac Inj 60 Mg/2 Ml Vial) 30 mg IM X1 ONE Stop: 12/21/23 15:42 Last Admin: 12/21/23 15:51 Dose: 30 mg Ketorolac Tromethamine (Ketorolac Inj 30 Mg/Ml Vial) 30 mg IVP Q6HR PRN PRN Reason: PAIN 1-6 (mild-mod Stop: 12/26/23 23:30 Morphine Sulfate (Morphine Sulf Inj 10 Mg/Ml Vial) 4 mg IVP X1 ONE Stop: 12/21/23 17:19 Last Admin: 12/21/23 17:22 Dose: 4 mg Morphine Sulfate (Morphine Sulf Inj 10 Mg/Ml Vial) 5 mg IVP Q4HR PRN PRN Reason: PAIN SCALE 4-10(Mod-Sev Stop: 12/26/23 23:54 Last Admin: 12/23/23 04:43 Dose: 5 mg Morphine Sulfate (Morphine Sulf Inj 10 Mg/Ml Vial) 3 mg IVP X1 ONE Stop: 12/22/23 15:59 Last Admin: 12/22/23 16:14 Dose: 3 mg Morphine Sulfate (Morphine Sulf Inj 10 Mg/Ml Vial) 5 mg IVP Q4HR PRN PRN Reason: PAIN SCALE 4-10(Mod-Sev Stop: 12/26/23 23:54 Last Admin: 12/24/23 09:06 Dose: 5 mg Ondansetron HCl (Ondansetron Inj 2 Mg/Ml Inj 2 Ml) 4 mg IV X1 ONE Stop: 12/21/23 22:29 Last Admin: 12/21/23 23:52 Dose: Not Given Potassium Chloride (Potassium Chloride 10% 20 Meq/15 Ml Udc) 40 meq PO X1 ONE Stop: 12/21/23 16:40 Last Admin: 12/21/23 17:03 Dose: 40 meq Potassium Chloride (Potassium Chloride 10% 20 Meq/15 Ml Udc) 40 meq PO X1 ONE Stop: 12/24/23 08:45 Last Admin: 12/24/23 09:05 Dose: 40 meq Assessment & Plan Attending Provider Attestation/Addendum I have examined the patient, reviewed labs and imaging findings, discussed the case with the resident(s), and reviewed entered orders. I agree with the plan of care as outlined in this note, with these additional summaries/recommendations: #AHRF Echo reviewed- Normal EF 60-65%. Most likely secondary to right base pneumonia and post-op atelectasis. Continue IV antibiotics, incentive spirometry, and wean O2 supplementation as tolerated. No evidence of PE on CTA chest. Small pleural effusion noted and likely noncontributory. # Sepsis SIRS criteria positive. Most likely source is pneumonia versus Pericecal abscess. Blood cultures show no growth at 48 hours. Leukocytosis worsening and sinus tachycardia persists. Continue IV Zosyn and appreciate surgical recs on potential abscess. Will defer sepsis fluid protocol as patient has received a significant amount of fluids throughout hospitalization and concern for fluid overload with crackles on physical exam. # Status post appendectomy: Continue to manage pain as needed. Continue wound care. Surgery team is following. Patient denies having bowel movement or passing flatulence since surgery. CT abdomen/pelvis showed no evidence of SBO or ileus. Continue clear liquid diet and general surgery following. # Pneumoperitoneum Related to recent laparoscopic appendectomy. Continue to monitor although no intervention needed at this time. # Hypokalemia Mild, replacement given. Repeat level in AM. Dr. Hancock
[2023-12-24 11:17] LABS: Lactic Acid, 3 HR 1.5 mMol/L (0.4-2.0)
--- NOTE | 2023-12-24 11:20 | EKG_ITS ---
[facility] Test Date: 2023-12-24 Pat Name: MAHOGANY MCCAIN [facility] Electrotyper: EDMOJ1 : 1980 Requested By: Mike Bryant Order Number: [id number] Reading MD: Mike Bryant Measurements Intervals [place] Rate: 122 P: 8 ME: 121 QRS: 17 QRSD: 85 T: -1 QT: 287 QTc: 410 Interpretive Statements SINUS TACHYCARDIA ABNORMAL RHYTHM ECG No previous ECG available for comparison /[id number]
--- NOTE | 2023-12-24 14:27 | EKG_ITS ---
[facility] Test Date: 2023-12-24 Pat Name: MAHOGANY MCCAIN [facility] [place] Pinion Adjuster: EDMOJ1 : 1980 Requested By: Yazmin Chun Order Number: [id number] Reading MD: Yazmin Chun Measurements Intervals [place] Rate: 118 P: 7 [place]: 120 QRS: 16 QRSD: 90 T: 1 QT: 290 QTc: 406 Interpretive Statements SINUS TACHYCARDIA ABNORMAL RHYTHM ECG Compared to ECG 12/24/2023 11:55:29 No significant changes /[id number]
--- NOTE | 2023-12-24 15:18 | PC.SS ---
Rounding note; Patient is pending a CTA and Echo, patient is on IV abx.
[2023-12-24] MEDS: bisacodyL 10 MG SUPP PR (15:43)
--- NOTE | 2023-12-24 17:34 | PD.SURPROG ---
Documentation for date of: 12/24/23 Subjective Subjective Brief History: As above Narrative: The patient continues to have abdominal distention even though he is not vomiting. He has not passed any flatus and has not had any bowel movements. This morning he had some difficulty in breathing also. Patient was evaluated by the hospitalist and CTA of the chest showed no pulmonary embolus. Exam Vital Signs Temp Pulse Resp BP Pulse Ox O2 Del Method O2 Flow Rate 97 F 121 H 15 133/92 H 97 Nasal Cannula 2 12/24/23 16:00 12/24/23 16:00 12/24/23 16:00 12/24/23 16:00 12/24/23 16:00 12/24/23 16:00 12/24/23 16:00 His vital signs revealed heart rate around 121. Otherwise other values are normal Routine Abdominal Exam Comments: Abdomen continues to be distended even though there is no dilated loops of bowel on the CT scan Results Results: Laboratory Laboratory Narrative: WBC is up to 25,000 Results: Imaging Imaging narrative: CT scan today showed collection of fluid on the right side of the abdomen which is probably the irrigated fluid. There is also some free air under the diaphragm which may be secondary to laparoscopy. If the patient develops an abscess it could be drained percutaneously as per the radiologist Assessment & Plan Assessment Additional comments: Impression: Postoperative abdominal wall distention even though there is no vomiting Continued tachycardia and tachypnea Plan Plan: We shall try enemas and Dulcolax suppository today. Also tried NG tube to see if he can decompress some air in the upper GI tract. Procedures Procedures Laparoscopic appendectomy
[2023-12-24] MEDS: BENZOCAINE 20% (Hurricaine) SPRAY 1 DOSE TOP (18:29)
--- NOTE | 2023-12-24 18:37 | XR_ITS ---
Examination: AP chest single view TECHNIQUE: AP portable semiupright chest single view Exam date and time: December 24, 2023 1647 hours INDICATIONS: Post orogastric tube placement FINDINGS: Orogastric tube tip in the stomach satisfactory position Air distended small bowel loops IMPRESSION: Orogastric tube satisfactory position
--- NOTE | 2023-12-24 19:44 | XR_ITS ---
Examination: AP chest single view Technique: AP portable semiupright chest single view Exam date and time: December 24, 2023 1951 hrs. Indications: Post orogastric tube placement Findings: Orogastric tube projects in the stomach satisfactory position Air distended colon No free air Impression: Orogastric tube tip projects body of the stomach
[2023-12-24 19:58] LABS: Allen Test Performed/OK; Base Excess 0 (-3-3); HCO3 25 mEq/L (20-26); Inspired O2, VO2 Liters 15 L/min; O2 Saturation 99 % (91-98); PCO2 40 mmHg (32.0-48.0); PO2 134 mmHg (83-108); Puncture Site Right Radial
[2023-12-24 20:17] LABS: Basophils # (Auto) 0.1 Thou/mm3 (0.0-0.2); Basophils % (Auto) 0 % (0-2.5); Eosinophils # (Auto) 0.1 Thou/mm3 (0.0-0.5); Eosinophils % (Auto) 0 % (0-10); Hematocrit 42.4 % (41.0-53.0); Hemoglobin 14.3 g/dL (13.5-16.0); Immature Granulocytes % (Auto) 1 % (0-0); Immature Granulocytes Auto 0.17 Thou/mm3 (0.00-0.00); Lymphocytes # (Auto) 0.5 Thou/mm3 (1.0-4.8); Lymphocytes % (Auto) 3 % (10-50); Mean Corpuscular HGB Conc 33.7 g/dl (31.0-37.0); Mean Corpuscular Hemoglobin 28.5 pg (25.0-35.0); Mean Corpuscular Volume 85 fL (80-100); Monocytes # (Auto) 0.9 Thou/mm3 (0.0-0.8); Monocytes % (Auto) 6 % (0-12); Neutrophils # (Auto) 14.2 Thou/mm3 (1.8-7.7); Neutrophils % (Auto) 89 % (37-80); Nucleated Red Blood Cell # 0.02 Thou/mm3 (0.00-0.00); Nucleated Red Blood Cell % 0 /100 WBC (0); Platelet Count 324 Thou/mm3 (140-440); RDW Standard Deviation 44.7 fL (35.1-43.9); Red Blood Count 5.02 Miln/mm3 (4.50-5.90)
[2023-12-24] MEDS: FUROSEMIDE INJ 10 MG/ML 4ML VIAL 40 MG IVP (20:17)
--- NOTE | 2023-12-24 20:30 | PC.NURSE ---
FOAM RUBBER MOLDER called approximately at 1916 for patient's O2 at 89% on 15 L oxy mask, patient also tachycardic in the 130s-150s and low grade fever of 99.6. patient complaining of severe pain in abdomen. Abdomen is distended, guarding, patient not passing stool or gas. Patient switched from oxymask to high flow. FOAM RUBBER MOLDER at bedside, given lasix x1 40 mg IVP. NGT checked for placement and advanced. ABGs, CBC, CMP, PT/PTT ordered. Dr. Rubio saw pt at bedside.
[2023-12-24 20:36] LABS: Alanine Aminotransferase 17 U/L (10-49); Albumin, Serum 3.8 gm/dL (3.5-5.0); Albumin/Globulin Ratio 1.1 (1.2-2.2); Alkaline Phosphatase 102 U/L (46-116); Anion Gap 7 (7-16); Aspartate Amino Transferase 16 U/L (0-34); BUN/Creatinine Ratio 13 Ratio (12-20); Bilirubin,Total 1.3 mg/dL (0.3-1.2); Blood Urea Nitrogen 12 mg/dL (9-23); Calcium 9.2 mg/dL (8.3-10.6); Calcium (Corrected) 9.4 mg/dL (8.5-10.1); Carbon Dioxide 25.7 mMol/L (20.0-31.0); Chloride 101 mMol/L (98-107); Creatinine (Component) 0.9 mg/dL (0.6-1.3); Estimated Creatinine Clearance 108.9 mL/min (>60); Globulin 3.5 gm/dL (2.3-3.5); Glucose 178 mg/dL (74-106); Osmolality,Calculated 271 (275-295); Potassium 3.7 mMol/L (3.4-5.1); Sodium 134 mMol/L (136-145); Total Protein 7.3 gm/dL (5.7-8.2); eGFR > 60 See Note
--- NOTE | 2023-12-24 20:55 | PD.RESEVENT ---
Documentation for date of: 12/24/23 Event Note Event Note: Event Note: Rapid Response called for increasing SOB Called at approximately 19:16 Vitals: HR 133, RR 34 H (SOB), SpO 87% N.C. flow rate 4 MAP 105 Patient was able to protect airway, breathing was tachypneic, and pedal pulses present, thus circulation was well maintained. Patient complaining of abdominal pain. Medication list reviewed. Physical Exam: tachycardia, no murmurs auscultated on physical exam, breath sounds vesicular, diffuse abdominal distention, diffuse tenderness, and hypoactive bowel sounds. No edema. Intervention: Morphine D/C, KUB ordered x2, NG tube re-evaluated/Suction, lasix. Patient switched from NC to high flow. Surgery Updated. - The patient's plan was discussed with attending Dr. Danisha Gage MD PGY1 Internal Medicine
--- NOTE | 2023-12-24 21:12 | PD.SURPROG ---
Documentation for date of: 12/24/23 Subjective Subjective Brief History: As above Narrative: The patient became suddenly hypoxic around 730 this evening. His respiratory rate went up and his O2 saturation came down. He was also markedly tachycardic. Exam Vital Signs Temp Pulse Resp BP Pulse Ox O2 Del Method O2 Flow Rate 97 F 140 H 26 H 139/90 H 90 L Nasal Cannula 40 12/24/23 16:00 12/24/23 20:17 12/24/23 20:00 12/24/23 20:17 12/24/23 20:00 12/24/23 16:00 12/24/23 20:00 FiO2 100 12/24/23 20:00 His vital signs revealed a pulse of 140 respiratory it is 26 Routine Abdominal Exam Comments: Examination of the abdomen showed diffuse tenderness which is changed from earlier today. Results Results: Laboratory Laboratory Narrative: Impression: Assessment & Plan Assessment Additional comments: Impression: Patient probably has some intra-abdominal pathology like a perforation of the small bowel or the staple line following appendectomy Plan Plan: Patient will therefore require exploration as soon as possible. His condition has significantly changed and respiratory rate is secondary to what is going on in the abdomen. Patient will be taken to the operating room tonight. The risk of the operation were explained to the patient and the telling that he might require colon resection and even colostomy on a temporary basis. He is agreeable. Procedures Procedures Laparoscopic appendectomy
[2023-12-24 21:30] LABS: INR 1.1 (0.9-1.3); Partial Thromboplastin Time 32.1 Seconds (22.0-36.0); Prothrombin Time 12.4 Seconds (9.0-12.2)
--- NOTE | 2023-12-24 23:32 | ESCONSULT_ITS ---
HPI Data of Consult Requesting Physician: Pierre Hancock MD Admitting Provider: James Weiss MD Attending Provider: Pierre Hancock MD Primary Care Provider: Nayan Leung MD Consult Narrative History of present illness: 43-year-old male with no significant past medical history who presented to the ED on 12/21/2023 with a chief complaint of abdominal pain. Pain started in the epigastric region that then migrated to right lower quadrant, he was diagnosed with acute appendicitis and underwent laparoscopic appendectomy on 12/20, during procedure patient found to have a gangrenous perforated appendix and free purulent material, patient tolerated well procedure. Internal medicine team consulted on 12/22 due to tachycardia and hypoxia, initial CXR showed free-air under diaphragm, chest CTA showed pneumonia in the right lung base with right pleural effusion, negative for PE. CT abdomen pelvis showed pneumoperitoneum, fluid subcapsular to the liver, fluid collection below the liver pericecal, consider abscess. Rapid response was called around 7:30pm due to hypoxia requiring high flow NC, on arrival patient tachycardic in the 140s complaining of abdominal pain, surgeon Dr Rubio contacted who recommended immediate surgical exploration. During procedure patient was found to have small bowel perforation & free feccal material, cavity was washed, s/p ilestomy;delayed primary closure, wound vac in place. Patient was then transferred postprocedure to ICU, upon arrival to the unit patient was tachycardic in the 160s saturating 90%, chest x ray was ordered which showed right main bronch intubation, tube pulled back, adequate O2 improvement to 98%. cc:: cc: Pierre Hancock MD Review of Systems Review of Systems ROS Unobtainable: unobtainable due to mental status Exam Vital Signs Temp Pulse Resp BP Pulse Ox O2 Del Method O2 Flow Rate 97.0 F 140 H 22 H 139/90 H 92 L Nasal Cannula 2 12/24/23 20:00 12/24/23 20:17 12/24/23 20:00 12/24/23 20:17 12/24/23 20:00 12/24/23 20:00 12/24/23 20:00 FiO2 100 12/24/23 20:00 Narrative Exam GENERAL: Intubated, sedated HEENT: Normocephalic, atraumatic and nontender.? Pupils are pinpoint. Tube 22 at the lips NECK: Supple without adenopathy. Trachea midline, no JVD.? CHEST: Tachycardic, no murmurs, Nontender on palpation, no deformity LUNGS: Lung sounds are clear.? No wheezing, rales or ronchi.? Intubated ABDOMEN: Distended, ileostomy, wound covered. EXTREMITIES: No pitting edema.? SKIN: No rashes noted. NEURO:?Sedated RASS -3 Results Labs 12/24/23 20:00 12/24/23 20:00 Labs: Short CBC 12/24/23 12/24/23 Range/Units 04:56 20:00 WBC 25.0 H D 16.0 H D (3.8-10.6) Thou/mm3 Hgb 13.3 L 14.3 (13.5-16.0) g/dL Hct 39.8 L 42.4 (41.0-53.0) % Plt Count 277 324 D (140-440) Thou/mm3 BMP 12/24/23 12/24/23 04:56 20:00 Sodium 134 L 134 L Potassium 3.0 L D 3.7 D Chloride 100 101 Carbon Dioxide 23.8 25.7 BUN 10 12 Creatinine 0.9 0.9 Glucose 151 H 178 H Calcium 8.9 9.2 Liver Function 12/24/23 12/24/23 Range/Units 04:56 20:00 Total Bilirubin 1.4 H D 1.3 H (0.3-1.2) mg/dL AST < 8 16 (0-34) U/L ALT 16 17 (10-49) U/L Alkaline Phosphatase 83 102 D (46-116) U/L Albumin 3.7 D 3.8 (3.5-5.0) gm/dL ABG Interpretation ABG results: 12/21/23 12/24/23 15:50 19:45 ABG pH 7.40 ABG pCO2 40 ABG pO2 134 H ABG HCO3 25 ABG O2 Saturation 99 H ABG Base Excess 0 VBG pH 7.48 VBG pCO2 35 L VBG pO2 56 VBG Base Excess 2 Quality Measures Quality Measures none Medications Home Medications and Allergies Home Medications ?Medication ?Instructions ?Recorded ?Confirmed ?Type No Known Home Medications 12/22/23 12/22/23 History Allergies Allergy/AdvReac Type Severity Reaction Status Date / Time No Known Allergies Allergy Verified 12/21/23 23:25 Visit Medications Acetaminophen (Acetaminophen 325 Mg Tablet) 650 mg PO Q6HR PRN PRN Reason: FEVER>101.5 Stop: 01/20/24 23:30 Heparin Sodium (Porcine) (Heparin Sod Inj 5000 Unit/Ml Vial) 5,000 unit SC Q8HR [facility] Stop: 01/07/24 05:59 Last Admin: 12/24/23 13:25 Dose: 5,000 unit Piperacillin Sod/Tazobactam (Sod 4.5 gm/ Sodium Chloride) 100 mls @ 25 mls/hr IV Q8HR [facility] Stop: 12/29/23 05:59 Last Admin: 12/24/23 13:25 Dose: 25 mls/hr Metronidazole (Flagyl 500 Mg Iv) 500 mg in 100 mls @ 200 mls/hr IV Q8HR [facility] Stop: 12/30/23 18:25 Last Admin: 12/24/23 14:18 Dose: 200 mls/hr Ketorolac Tromethamine (Ketorolac Inj 30 Mg/Ml Vial) 30 mg IVP Q6HR PRN PRN Reason: PAIN SCALE 1-3 (mild Stop: 12/26/23 23:30 Last Admin: 12/24/23 13:26 Dose: 30 mg Morphine Sulfate (Morphine Sulf Inj 10 Mg/Ml Vial) 1 mg IVP Q3H PRN PRN Reason: PAIN Stop: 12/28/23 20:41 Morphine Sulfate (Morphine Sulf Inj 10 Mg/Ml Vial) 5 mg IVP Q4HR PRN PRN Reason: PAIN SCALE 4-10(Mod-Sev Stop: 12/26/23 23:54 Last Admin: 12/24/23 18:46 Dose: 5 mg Ondansetron HCl (Ondansetron Inj 2 Mg/Ml Inj 2 Ml) 4 mg IV Q4HR PRN PRN Reason: NAUSEA OR VOMITING Stop: 01/20/24 23:30 Last Admin: 12/23/23 13:00 Dose: 4 mg Pantoprazole Sodium (Pantoprazole 20 Mg Tablet) 20 mg PO QDAY [facility] Stop: 01/23/24 08:59 Last Admin: 12/24/23 09:06 Dose: 20 mg Discontinued Medications Acetaminophen (Acetaminophen 325 Mg Tablet) 650 mg PO Q6HR PRN PRN Reason: [id number] Stop: 01/20/24 23:30 Hydrocodone Bitart/Acetaminophen (Hydrocodone/Apap 5/325 Tablet) 1 tab PO X1 ONE Stop: 12/21/23 15:44 Last Admin: 12/21/23 15:50 Dose: 1 tab Hydrocodone Bitart/Acetaminophen (Hydrocodone/Apap 5/325 Tablet) 1 tab PO Q4HR PRN PRN Reason: PAIN Stop: 12/27/23 22:06 Benzocaine (Benzocaine 20% (Hurricaine) [place] 1 Dose) 1 dose TOP X1 ONE Stop: 12/24/23 17:32 Last Admin: 12/24/23 18:29 Dose: 1 dose Bisacodyl (Bisacodyl 10 Mg Supp) 10 mg OK X1 ONE; Protocol Stop: 12/24/23 15:10 Last Admin: 12/24/23 15:43 Dose: 10 mg Fentanyl Citrate (Fentanyl Cit Inj 50 Mcg/Ml Amp 2ml) 50 mcg IV Q5M PRN PRN Reason: PAIN SCALE 4-6 (Moderate Stop: 12/22/23 00:28 Furosemide (Furosemide Inj 10 Mg/Ml 4ml Vial) 40 mg IVP X1 ONE Stop: 12/24/23 19:39 Last Admin: 12/24/23 20:17 Dose: 40 mg Lactated Ringer's (Lactated Ringers) 1,000 mls @ 1,000 mls/hr IV .Q1H ONE Stop: 12/21/23 18:17 Last Infusion: 12/21/23 18:45 Dose: Infused Sodium Chloride (Ns) 1,000 mls @ 999 mls/hr IV .Q1H1M ONE Stop: 12/21/23 20:06 Last Infusion: 12/21/23 21:17 Dose: Infused Piperacillin/Tazobactam/Dextrose (Zosyn) 3.375 gm in 50 mls @ 100 mls/hr IV X1 ONE Stop: 12/21/23 19:35 Last Infusion: 12/21/23 20:15 Dose: Infused Sodium Chloride (Ns) 1,000 mls @ 100 mls/hr IV .Q10H TAL Stop: 01/20/24 20:44 Acetaminophen (Ofirmev Inj) 1,000 mg in 100 mls @ 250 mls/hr IV Q6HR PRN PRN Reason: PAIN SCALE 4-10(Mod-Sev Stop: 12/24/23 22:27 Last Admin: 12/23/23 07:27 Dose: 250 mls/hr Sodium Chloride (Ns) 1,000 mls @ 125 mls/hr IV .Q8H TAL Stop: 01/20/24 23:30 Last Admin: 12/23/23 17:44 Dose: 125 mls/hr Influenza Virus Vaccine Quadrival (Influenza Virus Quadrivalent 0.5 Ml Syringe) 0.5 ml IMi .ONCE ONE Stop: 12/22/23 00:02 Ketorolac Tromethamine (Ketorolac Inj 60 Mg/2 Ml Vial) 30 mg IM X1 ONE Stop: 12/21/23 15:42 Last Admin: 12/21/23 15:51 Dose: 30 mg Ketorolac Tromethamine (Ketorolac Inj 30 Mg/Ml Vial) 30 mg IVP Q6HR PRN PRN Reason: PAIN 1-6 (mild-mod Stop: 12/26/23 23:30 Morphine Sulfate (Morphine Sulf Inj 10 Mg/Ml Vial) 4 mg IVP X1 ONE Stop: 12/21/23 17:19 Last Admin: 12/21/23 17:22 Dose: 4 mg Morphine Sulfate (Morphine Sulf Inj 10 Mg/Ml Vial) 5 mg IVP Q4HR PRN PRN Reason: PAIN SCALE 4-10(Mod-Sev Stop: 12/26/23 23:54 Last Admin: 12/23/23 04:43 Dose: 5 mg Morphine Sulfate (Morphine Sulf Inj 10 Mg/Ml Vial) 3 mg IVP X1 ONE Stop: 12/22/23 15:59 Last Admin: 12/22/23 16:14 Dose: 3 mg Morphine Sulfate (Morphine Sulf Inj 10 Mg/Ml Vial) 5 mg IVP Q4HR PRN PRN Reason: PAIN SCALE 4-10(Mod-Sev Stop: 12/26/23 23:54 Last Admin: 12/24/23 09:06 Dose: 5 mg Ondansetron HCl (Ondansetron Inj 2 Mg/Ml Inj 2 Ml) 4 mg IV X1 ONE Stop: 12/21/23 22:29 Last Admin: 12/21/23 23:52 Dose: Not Given Potassium Chloride (Potassium Chloride 10% 20 Meq/15 Ml Udc) 40 meq PO X1 ONE Stop: 12/21/23 16:40 Last Admin: 12/21/23 17:03 Dose: 40 meq Potassium Chloride (Potassium Chloride 10% 20 Meq/15 Ml Udc) 40 meq PO X1 ONE Stop: 12/24/23 08:45 Last Admin: 12/24/23 09:05 Dose: 40 meq Potassium Chloride (Potassium Chloride 10% 20 Meq/15 Ml Udc) 40 meq PO X1 ONE Stop: 12/24/23 11:29 Last Admin: 12/24/23 13:26 Dose: 40 meq Assessment & Plan Plan 43-year-old male with no significant past medical history who presented to the ED on 12/21/2023 with a chief complaint of abdominal pain. Pain started in the epigastric region that then migrated to right lower quadrant, he was diagnosed with acute appendicitis and underwent laparoscopic appendectomy on 12/20, during procedure patient found to have a gangrenous perforated appendix and free purulent material, patient tolerated well procedure. Internal medicine team consulted on 12/22 due to tachycardia and hypoxia, initial CXR showed free-air under diaphragm, chest CTA showed pneumonia in the right lung base with right pleural effusion, negative for PE. CT abdomen pelvis showed pneumoperitoneum, fluid subcapsular to the liver, fluid collection below the liver pericecal, consider abscess. Rapid response was called around 7:30pm due to hypoxia requiring high flow NC, on arrival patient tachycardic in the 140s complaining of abdominal pain, surgeon Dr Rubio contacted who recommended immediate surgical exploration. During procedure patient was found to have small bowel perforation & free feccal material, cavity was washed, s/p ilestomy;delayed primary closure, wound vac in place. Patient was then transferred postprocedure to ICU, upon arrival to the unit patient was tachycardic in the 160s saturating 90%, chest x ray was ordered which showed right main bronch intubation, tube pulled back, adequate O2 improvement to 98%. [employer] -Sedated Fentanyl and Precedex, RASS -3 Respiratory #Acute hypoxic respiratory failure due to #Pneumonia right lung & atelectasis -Currently intubated post procedure, saturating 98% -Continue Zosyn CVS #Tachycardia -EKG shows sinus tachycardia -In the setting of pain and sepsis -Pain regimen in place Renal -Stable GI #Acute appendicitis s/p appendectomy #Small bowel perforation #Peritonitis -s/p ex lap, cavity washout, ileostomy, delayed primary closure wound vac in place -Flagyl and Zosyn -General surgeon Dr Weiss Infectious #Sepsis due to #Pneumonia and peritonitis -As above, Josh Endo -Stable Disposition: Patient transferred to ICU following ex lap. Small bowel perforation and peritonitis Diet and fluids:NPO DVT prophylaxis:Heparin GI prophylaxis:Pantoprazole CODE STATUS:FULL CODE [place]:In place Lines:Peripheral Patient's care discussed with attending physician, Dr Danisha Gore MD PGY3 Attending Provider Attestation/Addendum I reviewed labs, imaging, EKG, home medications and prior available records. Face to face evaluation was performed by me. I have personally examined the patient and discussed assessment and plan with the IM team. I reviewed the resident note and agree with the plan with exceptions as below. 43-year-old male who initially presented with abdominal pain for which she was found to have acute appendicitis status post appendectomy. Hospital course was complicated by persistent tachycardia for which internal medicine team was contacted. Patient continues to be tachycardic. Further workup showed no PE but pneumoperitoneum. That was initially thought to be postoperative finding however rapid response was called due to worsening tachycardia and hypoxia. See event note. Discussed with surgery who agreed on taking the patient to the OR. Given the worsening clinical picture patient went to the OR again for exploratory laparotomy where he was found to have small bowel perforation s/p ileostomy. SIRS/sinus tachycardia: Likely in the setting of bowel perforation. Status post ileostomy. Possible component of pain and hypoxia. Management of pain with IV opiates as needed. He was intubated postoperatively. Adjusted his sedations by starting Precedex. Small bowel perforation: Status post ileostomy. Management of pain as above. General surgery is following. Started the patient on IV fluids. Acute hypoxic respiratory failure: Likely in setting of acute illness from bowel perforation versus possible vascular congestion. He was intubated postoperatively. Held fluids initially and gave Lasix however will start fluids postoperatively per surgery recommendations. Monitor I's and O's. Status post appendectomy: Continue to manage pain as needed. Continue wound care. Surgery team is following. Critical care time is 65 minutes.
--- NOTE | 2023-12-24 23:49 | XR_ITS ---
Examination: AP chest single view Technique one AP portable supine chest single view Exam date and time: December 24, 2023 11:59 PM Comparison December 24, 2023, December 23, 2023 Indications: Hypoxic respiratory failure, postintubation Findings: Mild enlargement cardiac contour Prominent vascular congestion Bilateral more pronounced lung opacity Tracheal tube tip 27 mm above jose cruz Orogastric tube tip distal stomach versus duodenal bulb Impression: More pronounced bilateral pneumonia, significant left base Tracheal tube tip 27 mm above jose cruz
--- NOTE | 2023-12-24 23:59 | EKG_ITS ---
[facility] Test Date: 2023-12-25 Pat Name: MAHOGANY MCCAIN [facility] Yard [employer]man: MARISOL : 1980 Requested By: Juana Gore Order Number: [id number] Reading MD: Juana Gore Measurements Intervals [place] Rate: 162 P: 19 DE: 96 QRS: 21 QRSD: 87 T: 15 QT: 268 QTc: 441 Interpretive Statements SINUS TACHYCARDIA WITH SHORT DE INTERVAL ABNORMAL RHYTHM ECG Compared to ECG 12/24/2023 14:45:01 Short DE interval now present /store/[id number]
[2023-12-25] VITALS (78 sets, daily range): BP systolic 63–130; BP diastolic 49–93; PULSE 109–169; RESP 14–32; TEMP 36.1–37.3; O2SAT 94–100; BMI 30.5
[2023-12-25] MEDS: PROPOFOL 1,000 MG IVPB 1,000 MG/100 ML VIAL 2.735 MG IV (00:05)
[2023-12-25] MEDS: fentaNYL 2,500 MCG/250 ML BAG 2,500 MCG/250 ML BAG IV (00:05)
[2023-12-25] MEDS: MORPHINE SULF INJ 10 MG/ML VIAL 5 MG IVP (00:25)
[2023-12-25] MEDS: DEXMEDETOMIDINE 400 MCG IVPB 400 MCG/100 ML BAG IV (00:30)
[2023-12-25] MEDS: fentaNYL CIT INJ 50 mCg/ML AMP 2ML 75 MCG IVP (01:01)
[2023-12-25] MEDS: SODIUM CHLORIDE 0.9% 1000 ML 1,000 ML 100 ML IV (01:03)
[2023-12-25] MEDS: metroNIDAZOLE/NS 500 MG IVPB 500 MG/100 ML BAG 200 MG IV ×2 (01:05→05:13)
[2023-12-25] MEDS: PIPER/TAZO INJ 4.5 GM in SODIUM CHLORIDE 0.9% (P) 100 ML IV ×4 (01:05→21:12)
[2023-12-25 02:52] LABS: Base Excess -5 (-3-3); HCO3 24 mEq/L (20-26); Inspired Oxygen, FIO2 100 %; O2 Saturation 100 % (91-98); PCO2 56 mmHg (32.0-48.0); PO2 229 mmHg (83-108); pH, Arterial 7.23 (7.35-7.45)
[2023-12-25 02:53] LABS: Allen Test Performed/OK; Puncture Site Right Radial
[2023-12-25] MEDS: Norepinephrine/D5W 8mg/250ml 8 MG/250 ML BAG 8.547 MG IV (03:21)
[2023-12-25] MEDS: SODIUM CHLORIDE 0.9% 1000 ML 1,000 ML 999 ML IV (03:26)
[2023-12-25 05:06] LABS: Lactate (Lactic Acid) 3.2 mMol/L (0.4-2.0)
[2023-12-25 05:21] LABS: Base Excess -5 (-3-3); HCO3 23 mEq/L (20-26); Inspired Oxygen, FIO2 40 %; O2 Saturation 97 % (91-98); PCO2 52 mmHg (32.0-48.0); PO2 93 mmHg (83-108); pH, Arterial 7.25 (7.35-7.45)
[2023-12-25 05:23] LABS: Allen Test Performed/OK; Puncture Site Right Radial
[2023-12-25 05:28] LABS: Basophils # (Auto) 0.1 Thou/mm3 (0.0-0.2); Basophils % (Auto) 1 % (0-2.5); Eosinophils % (Auto) 0 % (0-10); Hematocrit 40.3 % (41.0-53.0); Hemoglobin 13.1 g/dL (13.5-16.0); Immature Granulocytes % (Auto) 1 % (0-0); Immature Granulocytes Auto 0.11 Thou/mm3 (0.00-0.00); Lymphocytes # (Auto) 0.7 Thou/mm3 (1.0-4.8); Lymphocytes % (Auto) 4 % (10-50); Mean Corpuscular HGB Conc 32.5 g/dl (31.0-37.0); Mean Corpuscular Hemoglobin 28.4 pg (25.0-35.0); Mean Corpuscular Volume 87 fL (80-100); Monocytes # (Auto) 1.8 Thou/mm3 (0.0-0.8); Monocytes % (Auto) 9 % (0-12); Neutrophils # (Auto) 16.9 Thou/mm3 (1.8-7.7); Neutrophils % (Auto) 86 % (37-80); Nucleated Red Blood Cell # 0.08 Thou/mm3 (0.00-0.00); Nucleated Red Blood Cell % 0 /100 WBC (0); Platelet Count 348 Thou/mm3 (140-440); RDW Standard Deviation 48.3 fL (35.1-43.9); Red Blood Count 4.62 Miln/mm3 (4.50-5.90); White Blood Count 19.5 Thou/mm3 (3.8-10.6)
[2023-12-25] MEDS: DEXMEDETOMIDINE 400 MCG IVPB 400 MCG/100 ML BAG 13.676 MCG IV (06:23)
[2023-12-25 06:30] LABS: Anion Gap 9 (7-16); Carbon Dioxide 24.3 mMol/L (20.0-31.0); Chloride 104 mMol/L (98-107); Potassium 4.6 mMol/L (3.4-5.1); Sodium 137 mMol/L (136-145)
[2023-12-25] MEDS: PROPOFOL 1,000 MG IVPB 1,000 MG/100 ML VIAL 2.436 MG IV (07:15)
[2023-12-25] MEDS: RINGERS LACTATED 1000 ML 1,000 ML 999 ML IV (07:25)
[2023-12-25 08:03] LABS: Reflex Lactate? Y
[2023-12-25] MEDS: PANTOPRAZOLE INJ 40 MG VIAL 20 MG IVP (08:25)
[2023-12-25] MEDS: HYDROmorphone INJ 2 MG/ML VIAL IVP (08:29)
--- NOTE | 2023-12-25 08:36 | ESPR_ITS ---
Documentation for date of: 12/25/23 Subjective Subjective Interval history: 43-year-old male with no significant past medical history who presented to the ED on 12/21/2023 with a chief complaint of abdominal pain. Pain started in the epigastric region that then migrated to right lower quadrant, he was diagnosed with acute appendicitis and underwent laparoscopic appendectomy on 12/20, during procedure patient found to have a gangrenous perforated appendix and free purulent material, patient tolerated well procedure. Internal medicine team consulted on 12/22 due to tachycardia and hypoxia, initial CXR showed free-air under diaphragm, chest CTA showed pneumonia in the right lung base with right pleural effusion, negative for PE. CT abdomen pelvis showed pneumoperitoneum, fluid subcapsular to the liver, fluid collection below the liver pericecal, consider abscess. Rapid response was called around 7:30pm due to hypoxia requiring high flow NC, on arrival patient tachycardic in the 140s complaining of abdominal pain, surgeon Dr Rubio contacted who recommended immediate surgical exploration. During procedure patient was found to have small bowel perforation & free feccal material, cavity was washed, s/p ilestomy;delayed primary closure, wound vac in place. Patient was then transferred postprocedure to ICU, upon arrival to the unit patient was tachycardic in the 160s saturating 90%, chest x ray was ordered which showed right main bronch intubation, tube pulled back, adequate O2 improvement to 98%. 12/25/2023: Patient examined at the bedside, currently in ICU following ex lap and ileostomy, for small bowel perforation, following prior appendectomy for perforated appendix. Patient was hypotensive overnight, started on pressors, IV Levophed to maintain MAP more than 65. Sedated for analgesia, but patient was in discomfort, likely due to pain, sinus tachycardia up to the 140s, overbreathing the ventilator. Received Dilaudid 2 mg, which resulted in improvement of sinus tachycardia and synchronization with the ventilator. ABGs this morning showed mixed respiratory acidosis and metabolic acidosis. Ventilation settings adjusted, to VC plus mode, respiratory rate. Repeat ABG 1 hour later showed resolution of respiratory acidosis. Continue with sedation RASS target -3. Pt was placed on [place]et[place] for hemodynamic measurements and bedside ultrasound was done for IVC measurement, patient hemodynamically volume depleted, anesthesia records and operation notes were reviewed, estimated volume loss including during surgery and ICU stay, 1600 mL, urine output continued to decline, patient received 3 L IV fluids and IV albumin was given. Noted improvement in urine output to more than 20 mL/h. Exam Vital Signs Temp Pulse Resp BP Pulse Ox O2 Del Method O2 Flow Rate 96.9 F 142 H 19 93/72 94 L Mechanical Ventilation 2 12/25/23 04:15 12/25/23 07:00 12/25/23 03:00 12/25/23 07:00 12/25/23 07:00 12/25/23 07:00 12/24/23 20:00 FiO2 35 12/25/23 07:00 Narrative Exam GENERAL: Intubated, sedated HEENT: Normocephalic, atraumatic and nontender.? Pupils are pinpoint. NECK: Supple without adenopathy. Trachea midline, no JVD.? CHEST: Tachycardic, no murmurs, Nontender on palpation, no deformity LUNGS: Lung sounds are clear.? No wheezing, rales or ronchi.? Intubated ABDOMEN: Distended, ileostomy bag containing 15 -20 mL blood-tinged fluid, midline surgical wound covered with dressing which is dry and clean. EXTREMITIES: No pitting edema.? SKIN: No rashes noted. NEURO:?Sedated RASS -3 Objective Labs 12/26/23 05:33 12/26/23 05:33 Labs: Laboratory Results - last 24 hr 12/24/23 12/24/23 12/24/23 11:00 19:45 20:00 WBC 16.0 H D RBC 5.02 Hgb 14.3 Hct 42.4 MCV 85 MCH 28.5 MCHC 33.7 RDW Std Deviation 44.7 H Plt Count 324 D Neut % (Auto) 89 H Lymph % (Auto) 3 L [place] % (Auto) 6 Eos % (Auto) 0 Baso % (Auto) 0 Neut # (Auto) 14.2 H Lymph # (Auto) 0.5 L [place] # (Auto) 0.9 H Eos # (Auto) 0.1 Baso # (Auto) 0.1 Immature Gran # (Auto) 0.17 H Absolute Nucleated RBC 0.02 H Immature Gran % 1 H Nucleated RBC % 0 PT 12.4 H INR 1.1 APTT 32.1 Puncture Site Right Radial ABG pH 7.40 ABG pCO2 40 ABG pO2 134 H ABG HCO3 25 ABG O2 Saturation 99 H ABG Base Excess 0 Oxygen Liter Flow 15 FiO2 Sodium 134 L Potassium 3.7 D Chloride 101 Carbon Dioxide 25.7 Anion Gap 7 BUN 12 Creatinine 0.9 Estim Creat Clear Calc 108.9 eGFR > 60 BUN/Creatinine Ratio 13 Glucose 178 H Calculated Osmolality 271 L Lactic Acid 1.5 Calcium 9.2 Corrected Calcium 9.4 Total Bilirubin 1.3 H AST 16 ALT 17 Alkaline Phosphatase 102 D Total Protein 7.3 Albumin 3.8 Globulin 3.5 Albumin/Globulin Ratio 1.1 L 12/25/23 12/25/23 12/25/23 02:34 04:24 04:54 WBC 19.5 H RBC 4.62 Hgb 13.1 L Hct 40.3 L MCV 87 MCH 28.4 MCHC 32.5 RDW Std Deviation 48.3 H Plt Count 348 Neut % (Auto) 86 H Lymph % (Auto) 4 L [place] % (Auto) 9 Eos % (Auto) 0 Baso % (Auto) 1 Neut # (Auto) 16.9 H Lymph # (Auto) 0.7 L [place] # (Auto) 1.8 H Eos # (Auto) 0.0 Baso # (Auto) 0.1 Immature Gran # (Auto) 0.11 H Absolute Nucleated RBC 0.08 H Immature Gran % 1 H Nucleated RBC % 0 PT INR APTT Puncture Site Right Radial Right Radial ABG pH 7.23 L D 7.25 L ABG pCO2 56 H D 52 H ABG pO2 229 H D 93 D ABG HCO3 24 23 ABG O2 Saturation 100 H 97 ABG Base Excess -5 L -5 L Oxygen Liter Flow FiO2 100 40 Sodium 137 Potassium 4.6 D Chloride 104 Carbon Dioxide 24.3 Anion Gap 9 BUN Creatinine Estim Creat Clear Calc eGFR BUN/Creatinine Ratio Glucose Calculated Osmolality Lactic Acid 3.2 H Calcium Corrected Calcium Total Bilirubin AST ALT Alkaline Phosphatase Total Protein Albumin Globulin Albumin/Globulin Ratio ABG Interpretation ABG results: 12/21/23 12/24/23 12/25/23 15:50 19:45 02:34 ABG pH 7.40 7.23 L D ABG pCO2 40 56 H D ABG pO2 134 H 229 H D ABG HCO3 25 24 ABG O2 Saturation 99 H 100 H ABG Base Excess 0 -5 L VBG pH 7.48 VBG pCO2 35 L VBG pO2 56 VBG Base Excess 2 12/25/23 04:54 ABG pH 7.25 L ABG pCO2 52 H ABG pO2 93 D ABG HCO3 23 ABG O2 Saturation 97 ABG Base Excess -5 L VBG pH VBG pCO2 VBG pO2 VBG Base Excess Quality Measures Quality Measures none Assessment & Plan Assessment Current Active Medications: Generic Name Dose Route Start Last Admin Trade Name Freq PRN Reason Stop Dose Admin Acetaminophen 650 mg 12/23/23 08:46 Acetaminophen 325 Mg Tablet PO 01/20/24 23:30 Q6HR PRN FEVER>101.5 Heparin Sodium (Porcine) 5,000 unit 12/24/23 06:00 12/25/23 05:14 Heparin Sod Inj 5000 Unit/Ml Vial SC 01/07/24 05:59 Not Given Q8HR TAL Piperacillin Sod/Tazobactam 100 mls @ 25 mls/hr 12/22/23 06:00 12/25/23 05:13 Sod 4.5 gm/ Sodium Chloride IV 12/29/23 05:59 25 mls/hr Q8HR TAL Administration Fentanyl Citrate 2,500 mcg in 250 mls @ 2.5 mls/hr 12/24/23 23:50 12/25/23 06:23 Sublimaze Inj 2,500 Mcg/250 Ml Bag IV 12/29/23 23:49 150 mcg/hr .Q24H PRN 15 mls/hr PER PROTOCOL Titration Protocol 25 MCG/HR Dexmedetomidine/Sodium Chloride 400 mcg in 100 mls @ 4.559 mls/hr 12/25/23 00:46 12/25/23 07:10 Precedex Ivpb IV 01/24/24 00:45 0 mcg/kg/hr .[id number] PRN 0 mls/hr Per PROTOCOL Titration Protocol 0.2 MCG/KG/HR Norepinephrine/Dextrose 8 mg in 250 mls @ 8.547 mls/hr 12/25/23 03:14 12/25/23 07:41 Levophed In D5w 8mg/250ml IV 01/24/24 03:13 0.01 mcg/kg/min .Q24H PRN 1.709 mls/hr PER PROTOCOL Titration Protocol 0.05 MCG/KG/MIN Propofol 1,000 mg in 100 mls @ 2.436 mls/hr 12/25/23 07:11 12/25/23 07:15 Diprivan Ivpb IV 01/24/24 07:10 5 mcg/kg/min .Q24H PRN 2.436 mls/hr PER PROTOCOL Administration Protocol 5 MCG/KG/MIN Ketorolac Tromethamine 30 mg 12/22/23 00:22 12/24/23 13:26 Ketorolac Inj 30 Mg/Ml Vial IVP 12/26/23 23:30 30 mg Q6HR PRN Administration PAIN SCALE 1-3 (mild Morphine Sulfate 5 mg 12/24/23 09:46 12/25/23 00:25 Morphine Sulf Inj 10 Mg/Ml Vial IVP 12/26/23 23:54 5 mg Q4HR PRN Administration PAIN SCALE 4-10(Mod-Sev Ondansetron HCl 4 mg 12/21/23 23:31 12/23/23 13:00 Ondansetron Inj 2 Mg/Ml Inj 2 Ml IV 01/20/24 23:30 4 mg Q4HR PRN Administration NAUSEA OR VOMITING Pantoprazole Sodium 20 mg 12/25/23 09:00 12/25/23 08:25 Pantoprazole Inj 40 Mg Vial IVP 01/24/24 08:59 20 mg QDAY TAL Administration Protocol Plan 43-year-old male with no significant past medical history who presented to the ED on 12/21/2023 with a chief complaint of abdominal pain. Pain started in the epigastric region that then migrated to right lower quadrant, he was diagnosed with acute appendicitis and underwent laparoscopic appendectomy on 12/20, during procedure patient found to have a gangrenous perforated appendix and free purulent material, patient tolerated well procedure. Internal medicine team consulted on 12/22 due to tachycardia and hypoxia, initial CXR showed free-air under diaphragm, chest CTA showed pneumonia in the right lung base with right pleural effusion, negative for PE. CT abdomen pelvis showed pneumoperitoneum, fluid subcapsular to the liver, fluid collection below the liver pericecal, consider abscess. Rapid response was called around 7:30pm due to hypoxia requiring high flow NC, on arrival patient tachycardic in the 140s complaining of abdominal pain, surgeon Dr Rubio contacted who recommended immediate surgical exploration. During procedure patient was found to have small bowel perforation & free feccal material, cavity was washed, s/p ilestomy;delayed primary closure, wound vac in place. Patient was then transferred postprocedure to ICU, upon arrival to the unit patient was tachycardic in the 160s saturating 90%, chest x ray was ordered which showed right main bronch intubation, tube pulled back, adequate O2 improvement to 98%. 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 -3 Respiratory #Acute hypoxic respiratory failure due to #Pneumonia right lung & atelectasis -Currently intubated post procedure, saturating 98% -Continue Zosyn and Micafungin CVS #Sinus Tachycardia -EKG shows sinus tachycardia -In the setting of pain and sepsis, also hypovolemia -Pain regimen in place Renal #ANITHA , - in the setting of hypovolemia, urine output below goal, GI #Acute appendicitis s/p appendectomy #Small bowel perforation #Peritonitis -s/p ex lap, cavity washout, ileostomy, delayed primary closure wound vac in place -iv Zosyn -General surgeon Dr Weiss Infectious #Sepsis due to #Pneumonia and peritonitis -As above , on Zosyn Endo -Stable Disposition: Patient transferred to ICU following ex lap. Small bowel perforation and peritonitis Diet and fluids:NPO DVT prophylaxis:Heparin GI prophylaxis:Pantoprazole CODE STATUS:FULL CODE [place]:In place Lines:Peripheral Patient's care discussed with attending physician, Dr Fidel Oswald Pgy 2
[2023-12-25 08:47] LABS: Lactic Acid, 3 HR 2.7 mMol/L (0.4-2.0)
[2023-12-25 09:13] LABS: Albumin, Serum 2.9 gm/dL (3.5-5.0); Anion Gap 6 (7-16); BUN/Creatinine Ratio 11 Ratio (12-20); Blood Urea Nitrogen 18 mg/dL (9-23); Calcium 7.2 mg/dL (8.3-10.6); Calcium (Corrected) 8.1 mg/dL (8.5-10.1); Carbon Dioxide 22.5 mMol/L (20.0-31.0); Chloride 108 mMol/L (98-107); Creatinine (Component) 1.6 mg/dL (0.6-1.3); Estimated Creatinine Clearance 57.8 mL/min (>60); Glucose 168 mg/dL (74-106); Osmolality,Calculated 277 (275-295); Phosphorous 4.1 mg/dL (2.4-5.1); Potassium 4.2 mMol/L (3.4-5.1); Sodium 136 mMol/L (136-145); eGFR 55 See Note
[2023-12-25] MEDS: RINGERS LACTATED 500 ML 500 ML 999 ML IV ×2 (09:33→15:34)
[2023-12-25 09:50] LABS: Collection Type, Urine Catheter
[2023-12-25 10:09] LABS: Amorphous Crystals,Urine Present (Absent); Bilirubin,Urine Negative (Negative); Blood,Urine 2+ (Negative); Budding Yeast,Urine Present; Color,Urine Yellow (Lt Yel-Yel); Glucose, Urine 1+ (Negative); Ketones,Urine Trace (Negative); Leukocyte Esterase,Urine Positive (Negative); Nitrite,Urine Negative (Negative); Protein,Urine 2+ (Neg - Trace); RBC,Urine 72 /hpf (0-3); Specific Gravity,Urine 1.026 (1.001-1.035); Squamous Epithelial Cell,Urine 2 /hpf (0-5); Urobilinogen,Urine Negative mg/dL (0.0-1.0); WBC,Urine 39 /hpf (0-5)
[2023-12-25 10:25] LABS: Clarity,Urine Hazy (Clear/Hazy); Culture Indicated,Urine Yes
--- NOTE | 2023-12-25 10:53 | PD.INTPROG ---
Documentation for date of: 12/25/23 Subjective Subjective Interval history: This is a 43yo M admitted to the ICU overnight s/p Ex lap. Initially presented to hospital with abd pain and had appendectomy on 12/20. Pt decompensated overnight and repeat imaging showed free air. Pt taken to OR where small bowel perf was noted with bowel contents in the abd cavity. Underwent a washout and ileostomy performed, pt left open and returned to ICU. Procedure lasted for ~2hrs and had an estimated blood loss of 250ml. Insensible losses likely around 2lts for the 2hrs. Pt received 1lt in OR and 1lt in ICU given however given insensible losses and EBL pt was likely ~ 2.5lts neg on arrival. Had 0 UOP for first few hours in ICU prior to developing a UOP. Pt is felt to be under resuscitated this AM and therefore additional IVF was given. pt also felt to have inadequate pain relief as HR decreased by 10 once given 2mg of dilaudid. Fentanyl gtt increased. Critical Care Note Critical care time (min.): 65 Exam Vital Signs Temp Pulse Resp BP Pulse Ox O2 Del Method O2 Flow Rate 98.1 F 116 H 19 94/66 100 Mechanical Ventilation 2 12/25/23 08:00 12/25/23 10:30 12/25/23 03:00 12/25/23 10:30 12/25/23 10:30 12/25/23 10:00 12/24/23 20:00 FiO2 35 12/25/23 10:00 Narrative Exam Gen- intubated, sedated, nl body habitus HEENT- NC/AT, mucosa hydrated, sclera anicteric, pupils pinpoint, ETT/OGT in place with dark material draining from OGT Chest- diminished, no crackles heard at this time, HRRR, tachycardic, increased WOB noted on exam Abd- bs absent, R ileostomy with stump appearing dusky and dark, grimacing on palpation, midline surgical wound with no active oozing noted, fascia and muscle closed and subq tissue open, few stitches near the top of the incision site Ext- no edema, pulses palp, no clubbing, no mottling Vent AC VC+ Drips levo fent prop Physical Exam Completion Physical Exam Complete?: Yes Objective - Child Care Labs 12/25/23 04:12/25/23 08:40 Labs: Laboratory Results - last 24 hr 12/24/23 12/24/23 12/24/23 11:00 19:45 20:00 WBC 16.0 H D RBC 5.02 Hgb 14.3 Hct 42.4 MCV 85 MCH 28.5 MCHC 33.7 RDW Std Deviation 44.7 H Plt Count 324 D Neut % (Auto) 89 H Lymph % (Auto) 3 L [place] % (Auto) 6 Eos % (Auto) 0 Baso % (Auto) 0 Neut # (Auto) 14.2 H Lymph # (Auto) 0.5 L [place] # (Auto) 0.9 H Eos # (Auto) 0.1 Baso # (Auto) 0.1 Immature Gran # (Auto) 0.17 H Absolute Nucleated RBC 0.02 H Immature Gran % 1 H Nucleated RBC % 0 PT 12.4 H INR 1.1 APTT 32.1 Puncture Site Right Radial ABG pH 7.40 ABG pCO2 40 ABG pO2 134 H ABG HCO3 25 ABG O2 Saturation 99 H ABG Base Excess 0 Oxygen Liter Flow 15 FiO2 Sodium 134 L Potassium 3.7 D Chloride 101 Carbon Dioxide 25.7 Anion Gap 7 BUN 12 Creatinine 0.9 Estim Creat Clear Calc 108.9 eGFR > 60 BUN/Creatinine Ratio 13 Glucose 178 H Calculated Osmolality 271 L Lactic Acid 1.5 Calcium 9.2 Corrected Calcium 9.4 Phosphorus Total Bilirubin 1.3 H AST 16 ALT 17 Alkaline Phosphatase 102 D Total Protein 7.3 Albumin 3.8 Globulin 3.5 Albumin/Globulin Ratio 1.1 L Ur Collection Type Urine Color Urine Clarity Urine pH Ur Specific [place] Urine Protein Urine Glucose (UA) Urine Ketones Urine Blood Urine Nitrite Urine Bilirubin Urine Urobilinogen (Auto) Ur Leukocyte Esterase Urine RBC Urine WBC Ur Squamous Epith Cells Amorphous Crystals Urine Bacteria Urine Yeast (Budding) Ur Culture Indicated? 12/25/23 12/25/23 12/25/23 02:34 04:24 04:54 WBC 19.5 H RBC 4.62 Hgb 13.1 L Hct 40.3 L MCV 87 MCH 28.4 MCHC 32.5 RDW Std Deviation 48.3 H Plt Count 348 Neut % (Auto) 86 H Lymph % (Auto) 4 L [place] % (Auto) 9 Eos % (Auto) 0 Baso % (Auto) 1 Neut # (Auto) 16.9 H Lymph # (Auto) 0.7 L [place] # (Auto) 1.8 H Eos # (Auto) 0.0 Baso # (Auto) 0.1 Immature Gran # (Auto) 0.11 H Absolute Nucleated RBC 0.08 H Immature Gran % 1 H Nucleated RBC % 0 PT INR APTT Puncture Site Right Radial Right Radial ABG pH 7.23 L D 7.25 L ABG pCO2 56 H D 52 H ABG pO2 229 H D 93 D ABG HCO3 24 23 ABG O2 Saturation 100 H 97 ABG Base Excess -5 L -5 L Oxygen Liter Flow FiO2 100 40 Sodium 137 Potassium 4.6 D Chloride 104 Carbon Dioxide 24.3 Anion Gap 9 BUN Creatinine Estim Creat Clear Calc eGFR BUN/Creatinine Ratio Glucose Calculated Osmolality Lactic Acid 3.2 H Calcium Corrected Calcium Phosphorus Total Bilirubin AST ALT Alkaline Phosphatase Total Protein Albumin Globulin Albumin/Globulin Ratio Ur Collection Type Urine Color Urine Clarity Urine pH Ur Specific [place] Urine Protein Urine Glucose (UA) Urine Ketones Urine Blood Urine Nitrite Urine Bilirubin Urine Urobilinogen (Auto) Ur Leukocyte Esterase Urine RBC Urine WBC Ur Squamous Epith Cells Amorphous Crystals Urine Bacteria Urine Yeast (Budding) Ur Culture Indicated? 12/25/23 12/25/23 08:40 09:42 WBC RBC Hgb Hct MCV MCH MCHC RDW Std Deviation Plt Count Neut % (Auto) Lymph % (Auto) [place] % (Auto) Eos % (Auto) Baso % (Auto) Neut # (Auto) Lymph # (Auto) [place] # (Auto) Eos # (Auto) Baso # (Auto) Immature Gran # (Auto) Absolute Nucleated RBC Immature Gran % Nucleated RBC % PT INR APTT Puncture Site ABG pH ABG pCO2 ABG pO2 ABG HCO3 ABG O2 Saturation ABG Base Excess Oxygen Liter Flow FiO2 Sodium 136 Potassium 4.2 Chloride 108 H Carbon Dioxide 22.5 Anion Gap 6 L BUN 18 Creatinine 1.6 H D Estim Creat Clear Calc 57.8 L eGFR 55 L BUN/Creatinine Ratio 11 L Glucose 168 H Calculated Osmolality 277 Lactic Acid 2.7 H Calcium 7.2 L D Corrected Calcium 8.1 L Phosphorus 4.1 Total Bilirubin AST ALT Alkaline Phosphatase Total Protein Albumin 2.9 L D Globulin Albumin/Globulin Ratio Ur Collection Type Catheter Urine Color Yellow Urine Clarity Hazy Urine pH 6.0 Ur Specific [place] 1.026 Urine Protein 2+ A Urine Glucose (UA) 1+ A Urine Ketones Trace Urine Blood 2+ A Urine Nitrite Negative Urine Bilirubin Negative Urine Urobilinogen (Auto) Negative Ur Leukocyte Esterase Positive Urine RBC 72 H Urine WBC 39 H Ur Squamous Epith Cells 2 Amorphous Crystals Present A Urine Bacteria None Urine Yeast (Budding) Present A Ur Culture Indicated? 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 on broad spectrum abx, on levophed low dose at this time. has received additional volume today. bedside echo done which shows hyperdynamic LV with no obvious pericardial effusion noted. Not felt to be obstructive or cardiogenic in etiology. Resp Acute hypoxic resp failure- pt currently intubated and on MV, ABG noted with some resp acidosis and vent changes made, CXR noted. pt had increased WOB initially and changes made from AC VC to AC VC + with improved WOB from pt . will ween as able ? PNA- fu with cx, on zosyn, fu MRSA screen, not a significant amount of FiO2 currently Renal ANITHA- likely 2/2 hypoperfusion and prerenal, monitor i/os , avoid nephrotoxins, improved UOP after additional volume given Lactic acidosis- improving, trending down HypoCa- replete IV GI NPO till cleared by surgery s/p Ex Lap- underwent a 2hr surgery overnight for pneumoperitoneum , surgical note still pending and unclear if bowel was resected, ileostomy placed. pt left open with wound vac being placed today GI proph- PPI Endo stable Heme Leukocytosis- 2/2 sepsis Anemia- mild, monitor, min blood loss during OR DVT proph- heparin 5000 q8 ID Intra abdominal Sepsis- started on zosyn and flagyl by surgery, abx changed to zosyn and micafungin given intra abdominal source. case d/w ICU team and surgery d/w wound care labs, imaging, records reviewed ~65ccmin required for eval, exam, review, intervention, discussion and formulation of POC for this critically ill pt with septic shock at high risk for further and ongoing decompensation Provider Notation Provider Notation: Although this document has been carefully reviewed, there may still be some phonetic and other typographical errors. These errors are purely grammatical due to imperfections in the software program and should not be construed in any way to compromise the substance of the patient's medical care during this visit. Thank you for the opportunity and privilege in assisting you with this patient's care and management.
[2023-12-25 10:55] LABS: Base Excess -3 (-3-3); HCO3 23 mEq/L (20-26); O2 Saturation 98 % (91-98); PCO2 45 mmHg (32.0-48.0); PO2 99 mmHg (83-108); pH, Arterial 7.33 (7.35-7.45)
[2023-12-25 10:58] LABS: Inspired Oxygen, FIO2 35 %
[2023-12-25 10:59] LABS: Allen Test Performed/OK; Puncture Site Right Radial
--- NOTE | 2023-12-25 11:07 | PC.RT ---
Dr Parra aware of ABG results. No new orders at this time.
[2023-12-25 11:36] LABS: Band Neutrophils (Manual) 28 % (0-6); Lymphocytes (Manual) 7 % (20-44); Metamyelocytes (Manual) 1 % (0-0); Monocytes (Manual) 6 % (2-9); Neutrophils (Manual) 58 % (50-70)
--- NOTE | 2023-12-25 11:41 | PC.DIETICIAN ---
Nutrition prescription If EN is indicated, consider: Vital 1.2 at 20 ml/hr via OG/NG tube by pump. Advance 10 ml every 8 hrs to goal rate of 58 ml/hr x 24 hrs. If no IV fluids, water flushes of 25 ml/hr (or per MD).
[2023-12-25] MEDS: CALCIUM GLUC/NS 1000MG IVPB 1,000 MG/50 ML BAG 50 MG IV (12:06)
--- NOTE | 2023-12-25 12:16 | ESPR_ITS ---
Documentation for date of: 12/25/23 Subjective Subjective Brief History: As above Narrative: The patient underwent exploration last night and I found out that he had leaked small bowel where it was stapled during the surgery close to the ileocecal junction. Patient had extensive small bowel contents all over the abdomen. He underwent closure of the distal stump and then an ileostomy for diversion. Since he was transferred to the ICU he has been intubated and is on the respirator. Exam Vital Signs Temp Pulse Resp BP Pulse Ox O2 Del Method O2 Flow Rate 98.1 F 125 H 19 99/67 100 Mechanical Ventilation 2 12/25/23 08:00 12/25/23 11:30 12/25/23 03:00 12/25/23 11:30 12/25/23 11:30 12/25/23 11:00 12/24/23 20:00 FiO2 35 12/25/23 11:00 His vital signs are normal but he is being maintained with small Levophed. His heart rate is trending down to 125/h Routine Abdominal Exam Comments: Abdominal wound has been covered with wound VAC and the ileostomy is not draining anything. Urinary output is low Results Results: Laboratory Laboratory Narrative: Laboratory workup showed WBC trending down but it is still high around 19,000. His chemistries normal Results: Imaging Imaging narrative: Chest x-ray showed bilateral infiltrate Assessment & Plan Assessment Additional comments: Impression: Status post ileostomy for perforated small bowel at ileocecal junction Status post perforated appendicitis Respiratory insufficiency requiring mechanical ventilation Bilateral basilar pneumonia Plan Plan: At the present time we are leaving the immediate postoperative care to the superintendent transmission. When he is extubated patient will be followed by Dr. Muniz in my absence. The family was informed about this coverage Procedures Procedures Laparoscopic appendectomy
--- NOTE | 2023-12-25 12:22 | ESOP_ITS ---
Date of Procedure 12/24/23 Pre Op Diagnosis Peritonitis possibly secondary to perforation of the small bowel or colon Post Op Diagnosis Perforation of the ileum close to the ileocecal junction with massive small bowel contamination of the peritoneal cavity Procedure Exploratory laparotomy and closure of the distal stump of the ileum and diverting ileostomy and peritoneal lavage. Findings Patient was found to have leakage at the ileum where I closed the small laceration happened during appendectomy. The staple line at the cecum could not be visualized due to considerable amount of exudate. Procedure Description Patient was brought to the operating room and endotracheal anesthesia was given. Abdomen was then prepped with ChloraPrep solution and draped in a sterile manner. Timeout was performed. Patient has received Zosyn and Flagyl preoperatively. The abdomen was opened starting few centimeters above the umbilicus down to the pubic symphysis. As soon as abdominal cavity was entered it was clear that the patient had leaked small bowel contents with extensive small bowel contents covering the proximal small bowel and the peritoneum. There was no fecal contamination because it was a leak from the small bowel and not the colon. I explored the wound and found out that there was a sideward opening of the ileum very close to the ileocecal junction. I irrigated extensively and looked for the staple line at the cecum but I could not find due to the exudate covering it. I felt that this laceration happened at the staple line which I used during appendectomy to free of the ileum from the inflammed appemdix which was stuck to the ileum. Some of the gina were seen in the vicinity of this lateral laceration. Because of the massive contamination I felt that closure of this laceration may not hold the sutures. I thought of doing a loop ileostomy but unfortunately the opening was was in the terminal portion of the ileum and this portion of the ileum could not be lifted up to the abdominal wall to do a loop ileostomy. I felt that the best option is to staple the distal ileum and bring of the proximal ileum for diversion. Therefore I dissected around the terminal ileum with the right angle clamp and harmonic michelle. Then I used a TA 35 blue gina to staple the terminal ileum. In addition I closed the suture line with 3-0 silk Lembert sutures to reinforce the edematous wall of the ileum. Then the proximal ileum was brought out through the abdominal wall after making an incision over the skin. Cruciate incision was made over the anterior rectus sheath and the ileostomy was pulled through between the rectus muscles. Then I placed 4 sutures of 2-0 Vicryl on the fascia and attached it to the serosa of the ileum. The ileal loop was along on the did not therefore attach to the mucosa of the ileumto mature it in the usual way. Instead I placed some sutures between the serosa of the ileum on the dermis with a 3-[address] I will have have enough length of the ileum to apply the appliance. Moreover with abdominal distention sometimes this ileostomy can retract under the skin in this obese patient. The ileum looked healthy when I completed. Once again wound was irrigated extensively and sponge counts were confirmed fascia was closed with interrupted 0 PDS and subcutaneous tissue was left open and packed with wet-to-dry fluff and dressing was applied. An appliance was applied over the ileum. Patient remained stable during the procedure even though his blood pressure went down for a short time. This was maintained by the anesthesiologist and he was returned to intensive care for further care because of the intubation. Anesthesia GETA Pathology / specimen None Estimated Blood Loss 200 Condition Critical Disposition ICU (Because of the intubation) Surgeon James Weiss MD Surgical Staff Operation Date: 12/24/23 21:30 Case Staff COMPUTER AIDED DESIGN DRAFTER: Red Davidson RNdecision unit rn: Omaira Martinez
[2023-12-25 12:37] LABS: Alanine Aminotransferase 14 U/L (10-49); Albumin/Globulin Ratio 1.3 (1.2-2.2); Alkaline Phosphatase 83 U/L (46-116); Aspartate Amino Transferase 24 U/L (0-34); Bilirubin,Direct 0.5 mg/dL (0.0-0.3); Bilirubin,Total 0.8 mg/dL (0.3-1.2); Globulin 2.2 gm/dL (2.3-3.5); Total Protein 5.1 gm/dL (5.7-8.2)
[2023-12-25] MEDS: SODIUM CHLORIDE 0.9% IV (13:20)
[2023-12-25] MEDS: MICAFUNGIN SODIUM IV (13:20)
[2023-12-25] MEDS: fentaNYL 2,500 MCG/250 ML BAG 2,500 MCG/250 ML BAG 20 MCG IV (14:17)
[2023-12-25] MEDS: HEPARIN SOD INJ 5000 UNIT/ML VIAL SC ×2 (14:23→21:12)
--- NOTE | 2023-12-25 15:19 | PC.SS ---
Update: Patient intubated/sedated. Temporary Ileostomy present. Wound Vac present.
--- NOTE | 2023-12-25 16:22 | PC.RT ---
Sputum sent to lab
[2023-12-25] MEDS: ALBUMIN HUMAN 5% IVPB 12.5 GM/250 ML BTL IV (17:26)
[2023-12-25] MEDS: PROPOFOL 1,000 MG IVPB 1,000 MG/100 ML VIAL 12.18 MG IV (18:21)
[2023-12-26] VITALS (27 sets, daily range): BP systolic 113–157; BP diastolic 76–96; PULSE 107–131; RESP 13–29; TEMP 36.6–37.6; O2SAT 93–100
[2023-12-26] MEDS: PROPOFOL 1,000 MG IVPB 1,000 MG/100 ML VIAL 17.052 MG IV (00:34)
[2023-12-26] MEDS: fentaNYL 2,500 MCG/250 ML BAG 2,500 MCG/250 ML BAG 25 MCG IV (00:34)
[2023-12-26] MEDS: HEPARIN SOD INJ 5000 UNIT/ML VIAL SC ×3 (05:02→21:07)
[2023-12-26] MEDS: PIPER/TAZO INJ 4.5 GM in SODIUM CHLORIDE 0.9% (P) 100 ML IV ×3 (05:02→21:06)
[2023-12-26 06:01] LABS: Basophils # (Auto) 0.1 Thou/mm3 (0.0-0.2); Basophils % (Auto) 0 % (0-2.5); Eosinophils # (Auto) 0.1 Thou/mm3 (0.0-0.5); Eosinophils % (Auto) 0 % (0-10); Hematocrit 35.9 % (41.0-53.0); Hemoglobin 11.8 g/dL (13.5-16.0); Immature Granulocytes % (Auto) 1 % (0-0); Immature Granulocytes Auto 0.36 Thou/mm3 (0.00-0.00); Lymphocytes # (Auto) 1.4 Thou/mm3 (1.0-4.8); Lymphocytes % (Auto) 5 % (10-50); Mean Corpuscular HGB Conc 32.9 g/dl (31.0-37.0); Mean Corpuscular Hemoglobin 28.6 pg (25.0-35.0); Mean Corpuscular Volume 87 fL (80-100); Monocytes % (Auto) 12 % (0-12); Neutrophils # (Auto) 20.4 Thou/mm3 (1.8-7.7); Neutrophils % (Auto) 81 % (37-80); Nucleated Red Blood Cell # 0.05 Thou/mm3 (0.00-0.00); Nucleated Red Blood Cell % 0 /100 WBC (0); Platelet Count 327 Thou/mm3 (140-440); RDW Standard Deviation 49.7 fL (35.1-43.9); Red Blood Count 4.12 Miln/mm3 (4.50-5.90); White Blood Count 25.3 Thou/mm3 (3.8-10.6)
[2023-12-26 06:38] LABS: Alanine Aminotransferase 13 U/L (10-49); Albumin, Serum 3.2 gm/dL (3.5-5.0); Albumin/Globulin Ratio 1.5 (1.2-2.2); Alkaline Phosphatase 86 U/L (46-116); Anion Gap 9 (7-16); Aspartate Amino Transferase 30 U/L (0-34); BUN/Creatinine Ratio 11 Ratio (12-20); Bilirubin,Total 0.8 mg/dL (0.3-1.2); Blood Urea Nitrogen 33 mg/dL (9-23); Calcium 7.5 mg/dL (8.3-10.6); Calcium (Corrected) 8.1 mg/dL (8.5-10.1); Carbon Dioxide 22.1 mMol/L (20.0-31.0); Chloride 107 mMol/L (98-107); Creatinine (Component) 2.9 mg/dL (0.6-1.3); Estimated Creatinine Clearance 31.5 mL/min (>60); Globulin 2.2 gm/dL (2.3-3.5); Glucose 152 mg/dL (74-106); Magnesium 2.2 mg/dL (1.6-2.6); Osmolality,Calculated 285 (275-295); Phosphorous 2.8 mg/dL (2.4-5.1); Potassium 3.8 mMol/L (3.4-5.1); Sodium 138 mMol/L (136-145); Total Protein 5.4 gm/dL (5.7-8.2); eGFR 27 See Note
--- NOTE | 2023-12-26 06:44 | XR_ITS ---
Examination: AP chest single view Technique: AP portable semiupright chest single view Exam date and time: December 26, 2023 0708 hrs. Comparison December 24, 2023 Indications: ICU patient with hypoxic respiratory failure postintubation, bilateral pneumonia Findings: Worsening bilateral bibasilar pneumonia Mild enlargement cardiac contour with prominent vascular congestion Endotracheal tube tip 3.9 cm above jose cruz Orogastric tube in the stomach, the tip is below the level of the film Mild osteopenia Impression: Worsening bibasilar pneumonia
[2023-12-26 07:02] LABS: Base Excess -2 (-3-3); HCO3 23 mEq/L (20-26); Inspired Oxygen, FIO2 35 %; O2 Saturation 98 % (91-98); PCO2 43 mmHg (32.0-48.0); PO2 95 mmHg (83-108); pH, Arterial 7.34 (7.35-7.45)
[2023-12-26 07:03] LABS: Allen Test Performed/OK; Puncture Site Right Radial
--- NOTE | 2023-12-26 07:22 | PC.RT ---
Dr Oswald aware of ABG, no new orders at this time.
[2023-12-26] MEDS: CALCIUM GLUC/NS 1000MG IVPB 1,000 MG/50 ML BAG 50 MG IV (10:11)
[2023-12-26] MEDS: PANTOPRAZOLE INJ 40 MG VIAL IVP (10:11)
[2023-12-26] MEDS: SODIUM CHLORIDE 0.9% IV (10:11)
[2023-12-26] MEDS: MICAFUNGIN SODIUM IV (10:11)
[2023-12-26 10:20] LABS: Allen Test Performed/OK; Base Excess -2 (-3-3); HCO3 23 mEq/L (20-26); Inspired Oxygen, FIO2 35 %; O2 Saturation 98 % (91-98); PCO2 41 mmHg (32.0-48.0); PO2 87 mmHg (83-108); Puncture Site Right Radial; pH, Arterial 7.36 (7.35-7.45)
--- NOTE | 2023-12-26 10:23 | ESPR_ITS ---
Documentation for date of: 12/26/23 Subjective Subjective Interval history: This is a 43yo M admitted to the ICU overnight s/p Ex lap. Initially presented to hospital with abd pain and had appendectomy on 12/20. Pt decompensated overnight and repeat imaging showed free air. Pt taken to OR where small bowel perf was noted with bowel contents in the abd cavity. Underwent a washout and ileostomy performed, pt left open and returned to ICU. Procedure lasted for ~2hrs and had an estimated blood loss of 250ml. Insensible losses likely around 2lts for the 2hrs. Pt received 1lt in OR and 1lt in ICU given however given insensible losses and EBL pt was likely ~ 2.5lts neg on arrival. Had 0 UOP for first few hours in ICU prior to developing a UOP. Pt is felt to be under resuscitated this AM and therefore additional IVF was given. pt also felt to have inadequate pain relief as HR decreased by 10 once given 2mg of dilaudid. Fentanyl gtt increased. 12/25-no acute overnight events, good urinary output has improved from yesterday, afebrile, patient is able to wake up and follow commands Critical Care Note Critical care time (min.): 45 Exam Vital Signs Temp Pulse Resp BP Pulse Ox O2 Del Method O2 Flow Rate 99.4 F 122 H 19 142/93 H 97 Mechanical Ventilation 2 12/26/23 04:00 12/26/23 10:05 12/25/23 03:00 12/26/23 10:05 12/26/23 10:05 12/25/23 18:00 12/24/23 20:00 FiO2 35 12/26/23 10:05 Narrative Exam Gen- NAD, awake and following commands, nl body habitus HEENT- NC/AT, mucosa hydrated, sclera anicteric, ETT/OGT in place Chest- diminished but clear lung jolly, HRRR, tachycardic , no increase in WOB Abd- firm, bowel sounds diminished, pain with palpation, no rebound, no guarding, surgical dressing in place, ostomy looks pink with small residual duskiness from yesterday with serosang in drain Ext- no edema, pulses palp, no clubbing, no mottling, moves all 4 Physical Exam Completion Physical Exam Complete?: Yes 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 - Distribution Technician Labs 12/26/23 05:33 12/26/23 05:33 Labs: Laboratory Results - last 24 hr 12/25/23 12/25/23 12/25/23 04:24 08:40 09:42 WBC RBC Hgb Hct MCV MCH MCHC RDW Std Deviation Plt Count Neut % (Auto) Lymph % (Auto) Reynolds % (Auto) Eos % (Auto) Baso % (Auto) Neut # (Auto) Lymph # (Auto) Reynolds # (Auto) Eos # (Auto) Baso # (Auto) Immature Gran # (Auto) Absolute Nucleated RBC Immature Gran % Neutrophils % (Manual) 58 Monocytes % (Manual) 6 Metamyelocytes % 1 H Nucleated RBC % Band Neutrophils 28 H Lymphocytes (Manual) 7 L Puncture Site ABG pH ABG pCO2 ABG pO2 ABG HCO3 ABG O2 Saturation ABG Base Excess FiO2 Sodium 136 Potassium 4.2 Chloride 108 H Carbon Dioxide 22.5 Anion Gap 6 L BUN 18 Creatinine 1.6 H D Estim Creat Clear Calc 57.8 L eGFR 55 L BUN/Creatinine Ratio 11 L Glucose 168 H Calculated Osmolality 277 Calcium 7.2 L D Corrected Calcium 8.1 L Phosphorus 4.1 Magnesium Total Bilirubin 0.8 D Direct Bilirubin 0.5 H AST 24 ALT 14 Alkaline Phosphatase 83 Total Protein 5.1 L Albumin 2.9 L D Globulin 2.2 L Albumin/Globulin Ratio 1.3 Ur Collection Type Catheter Urine Color Yellow Urine Clarity Hazy Urine pH 6.0 Ur Specific Jackson 1.026 Urine Protein 2+ A Urine Glucose (UA) 1+ A Urine Ketones Trace Urine Blood 2+ A Urine Nitrite Negative Urine Bilirubin Negative Urine Urobilinogen (Auto) Negative Ur Leukocyte Esterase Positive Urine RBC 72 H Urine WBC 39 H Ur Squamous Epith Cells 2 Amorphous Crystals Present A Urine Bacteria None Urine Yeast (Budding) Present A Ur Culture Indicated? Yes 12/25/23 12/26/23 12/26/23 10:48 05:33 06:56 WBC 25.3 H D RBC 4.12 L Hgb 11.8 L Hct 35.9 L MCV 87 MCH 28.6 MCHC 32.9 RDW Std Deviation 49.7 H Plt Count 327 Neut % (Auto) 81 H Lymph % (Auto) 5 L Reynolds % (Auto) 12 Eos % (Auto) 0 Baso % (Auto) 0 Neut # (Auto) 20.4 H Lymph # (Auto) 1.4 Reynolds # (Auto) 3.0 H Eos # (Auto) 0.1 Baso # (Auto) 0.1 Immature Gran # (Auto) 0.36 H Absolute Nucleated RBC 0.05 H Immature Gran % 1 H Neutrophils % (Manual) Monocytes % (Manual) Metamyelocytes % Nucleated RBC % 0 Band Neutrophils Lymphocytes (Manual) Puncture Site Right Radial Right Radial ABG pH 7.33 L 7.34 L ABG pCO2 45 43 ABG pO2 99 95 ABG HCO3 23 23 ABG O2 Saturation 98 98 ABG Base Excess -3 -2 FiO2 35 35 Sodium 138 Potassium 3.8 Chloride 107 Carbon Dioxide 22.1 Anion Gap 9 BUN 33 H Creatinine 2.9 H D Estim Creat Clear Calc 31.5 L eGFR 27 L BUN/Creatinine Ratio 11 L Glucose 152 H Calculated Osmolality 285 Calcium 7.5 L Corrected Calcium 8.1 L Phosphorus 2.8 Magnesium 2.2 Total Bilirubin 0.8 Direct Bilirubin AST 30 ALT 13 Alkaline Phosphatase 86 Total Protein 5.4 L Albumin 3.2 L Globulin 2.2 L Albumin/Globulin Ratio 1.5 Ur Collection Type Urine Color Urine Clarity Urine pH Ur Specific Jackson Urine Protein Urine Glucose (UA) Urine Ketones Urine Blood Urine Nitrite Urine Bilirubin Urine Urobilinogen (Auto) Ur Leukocyte Esterase Urine RBC Urine WBC Ur Squamous Epith Cells Amorphous Crystals Urine Bacteria Urine Yeast (Budding) Ur Culture Indicated? 12/26/23 10:15 WBC RBC Hgb Hct MCV MCH MCHC RDW Std Deviation Plt Count Neut % (Auto) Lymph % (Auto) Reynolds % (Auto) Eos % (Auto) Baso % (Auto) Neut # (Auto) Lymph # (Auto) Reynolds # (Auto) Eos # (Auto) Baso # (Auto) Immature Gran # (Auto) Absolute Nucleated RBC Immature Gran % Neutrophils % (Manual) Monocytes % (Manual) Metamyelocytes % Nucleated RBC % Band Neutrophils Lymphocytes (Manual) Puncture Site Right Radial ABG pH 7.36 ABG pCO2 41 ABG pO2 87 ABG HCO3 23 ABG O2 Saturation 98 ABG Base Excess -2 FiO2 35 Sodium Potassium Chloride Carbon Dioxide Anion Gap BUN Creatinine Estim Creat Clear Calc eGFR BUN/Creatinine Ratio Glucose Calculated Osmolality Calcium Corrected Calcium Phosphorus Magnesium Total Bilirubin Direct Bilirubin AST ALT Alkaline Phosphatase Total Protein Albumin Globulin Albumin/Globulin Ratio Ur Collection Type Urine Color Urine Clarity Urine pH Ur Specific Jackson Urine Protein Urine Glucose (UA) Urine Ketones Urine Blood Urine Nitrite Urine Bilirubin Urine Urobilinogen (Auto) Ur Leukocyte Esterase Urine RBC Urine WBC Ur Squamous Epith Cells Amorphous Crystals Urine Bacteria Urine Yeast (Budding) Ur Culture Indicated? 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 on broad spectrum abx, on levophed low dose at this time. has received additional volume today. bedside echo done which shows hyperdynamic LV with no obvious pericardial effusion noted. Not felt to be obstructive or cardiogenic in etiology. - pt is off of vasopressors today and doing well - received additional volume yesterday to account for insensible losses Resp Acute hypoxic resp failure- pt currently intubated and on MV, ABG noted with some resp acidosis and vent changes made, CXR noted. pt had increased WOB initially and changes made from AC VC to AC VC + with improved WOB from pt . will ween as able - improved today and on min vent settings - will evaluate for extubation ? PNA- fu with cx, on zosyn, fu MRSA screen, not a significant amount of FiO2 currently - remains stable with minimal secretions - cont abx - suspect a degree of atelectasis from compression and reduced lung volumes from increased IAP Renal ANITHA- likely 2/2 hypoperfusion and prerenal, monitor i/os , avoid nephrotoxins, improved UOP after additional volume given - good UOP today though there are worsening creatinine #s - cont to follow Lactic acidosis- resolved HypoCa- replete IV again today GI s/p Ex Lap- underwent a 2hr surgery overnight 12/24 for pneumoperitoneum , ileostomy placed. pt left open with wound vac in place - d/w surgery yesterday and cleared to trial PO - swallow eval and start diet GI proph- PPI Endo stable Heme Leukocytosis- 2/2 sepsis - trending up however felt to be partially reactive as well Anemia- mild, monitor, min blood loss during OR - stable DVT proph- heparin 5000 q8 ID Intra abdominal Sepsis- abx changed to zosyn and micafungin given intra abdominal source. - would cont for 5 days - ID recs appreciated case d/w ICU team ok for downgrade if successfully extubated labs, imaging, records reviewed ~45ccmin required for eval, exam, review, intervention, discussion and formulation of POC for this critically ill pt with septic shock at high risk for further and ongoing decompensation Provider Notation Provider Notation: Although this document has been carefully reviewed, there may still be some phonetic and other typographical errors. These errors are purely grammatical due to imperfections in the software program and should not be construed in any way to compromise the substance of the patient's medical care during this visit. Thank you for the opportunity and privilege in assisting you with this patient's care and management.
--- NOTE | 2023-12-26 11:00 | ESPR_ITS ---
Subjective Subjective Interval history: successfully extubated 43 y/o with dm or glucose intolerance and recent abd perf and leucocytosis. neg cx noted. sputum gs also neg. Exam Vital Signs Temp Pulse Resp BP Pulse Ox O2 Del Method O2 Flow Rate 99.4 F 122 H 19 142/93 H 97 Mechanical Ventilation 2 12/26/23 04:00 12/26/23 10:05 12/25/23 03:00 12/26/23 10:05 12/26/23 10:05 12/25/23 18:00 12/24/23 20:00 FiO2 35 12/26/23 10:05 Narrative Exam rlq ostomy noted.extubated, minimal to no O2 need noted. abd not distended. recent surgery noted. so exam limited Objective - Internal Medicine Labs 12/26/23 05:33 12/26/23 05:33 Labs: Laboratory Results - last 24 hr 12/25/23 12/25/23 12/26/23 04:24 08:40 05:33 WBC 25.3 H D RBC 4.12 L Hgb 11.8 L Hct 35.9 L MCV 87 MCH 28.6 MCHC 32.9 RDW Std Deviation 49.7 H Plt Count 327 Neut % (Auto) 81 H Lymph % (Auto) 5 L [place] % (Auto) 12 Eos % (Auto) 0 Baso % (Auto) 0 Neut # (Auto) 20.4 H Lymph # (Auto) 1.4 [place] # (Auto) 3.0 H Eos # (Auto) 0.1 Baso # (Auto) 0.1 Immature Gran # (Auto) 0.36 H Absolute Nucleated RBC 0.05 H Immature Gran % 1 H Neutrophils % (Manual) 58 Monocytes % (Manual) 6 Metamyelocytes % 1 H Nucleated RBC % 0 Band Neutrophils 28 H Lymphocytes (Manual) 7 L Puncture Site ABG pH ABG pCO2 ABG pO2 ABG HCO3 ABG O2 Saturation ABG Base Excess FiO2 Sodium 136 138 Potassium 4.2 3.8 Chloride 108 H 107 Carbon Dioxide 22.5 22.1 Anion Gap 6 L 9 BUN 18 33 H Creatinine 1.6 H D 2.9 H D Estim Creat Clear Calc 57.8 L 31.5 L eGFR 55 L 27 L BUN/Creatinine Ratio 11 L 11 L Glucose 168 H 152 H Calculated Osmolality 277 285 Calcium 7.2 L D 7.5 L Corrected Calcium 8.1 L 8.1 L Phosphorus 4.1 2.8 Magnesium 2.2 Total Bilirubin 0.8 D 0.8 Direct Bilirubin 0.5 H AST 24 30 ALT 14 13 Alkaline Phosphatase 83 86 Total Protein 5.1 L 5.4 L Albumin 2.9 L D 3.2 L Globulin 2.2 L 2.2 L Albumin/Globulin Ratio 1.3 1.5 12/26/23 12/26/23 06:56 10:15 WBC RBC Hgb Hct MCV MCH MCHC RDW Std Deviation Plt Count Neut % (Auto) Lymph % (Auto) [place] % (Auto) Eos % (Auto) Baso % (Auto) Neut # (Auto) Lymph # (Auto) [place] # (Auto) Eos # (Auto) Baso # (Auto) Immature Gran # (Auto) Absolute Nucleated RBC Immature Gran % Neutrophils % (Manual) Monocytes % (Manual) Metamyelocytes % Nucleated RBC % Band Neutrophils Lymphocytes (Manual) Puncture Site Right Radial Right Radial ABG pH 7.34 L 7.36 ABG pCO2 43 41 ABG pO2 95 87 ABG HCO3 23 23 ABG O2 Saturation 98 98 ABG Base Excess -2 -2 FiO2 35 35 Sodium Potassium Chloride Carbon Dioxide Anion Gap BUN Creatinine Estim Creat Clear Calc eGFR BUN/Creatinine Ratio Glucose Calculated Osmolality Calcium Corrected Calcium Phosphorus Magnesium Total Bilirubin Direct Bilirubin AST ALT Alkaline Phosphatase Total Protein Albumin Globulin Albumin/Globulin Ratio ABG Interpretation ABG results: 12/21/23 12/24/23 12/25/23 15:50 19:45 02:34 ABG pH 7.40 7.23 L D ABG pCO2 40 56 H D ABG pO2 134 H 229 H D ABG HCO3 25 24 ABG O2 Saturation 99 H 100 H ABG Base Excess 0 -5 L VBG pH 7.48 VBG pCO2 35 L VBG pO2 56 VBG Base Excess 2 12/25/23 12/25/23 12/26/23 04:54 10:48 06:56 ABG pH 7.25 L 7.33 L 7.34 L ABG pCO2 52 H 45 43 ABG pO2 93 D 99 95 ABG HCO3 23 23 23 ABG O2 Saturation 97 98 98 ABG Base Excess -5 L -3 -2 VBG pH VBG pCO2 VBG pO2 VBG Base Excess 12/26/23 10:15 ABG pH 7.36 ABG pCO2 41 ABG pO2 87 ABG HCO3 23 ABG O2 Saturation 98 ABG Base Excess -2 VBG pH VBG pCO2 VBG pO2 VBG Base Excess Assessment & Plan A&P Narrative abd perforation possible dm dany/vs ckd ordered some tests for am will see friday. usual rx after perf is 5d, (stopit trial) so will limit rx duration. flucon should work as well as micafungin as no yeast noted so far, but it is traditional to add antifungal to abd rx per surgical plans Time Spent With Patient Time: Total time spent is greater than 50% in coordination of care (as documented) at patient's floor/unit and/or counseling patient:
[2023-12-26] MEDS: FLUCONAZOLE/NS 400 MG IVPB 400 MG/200 ML BAG 100 MG IV (11:58)
[2023-12-26] MEDS: RINGERS LACTATED 1000 ML 1,000 ML 200 ML IV (11:58)
--- NOTE | 2023-12-26 12:12 | ESPR_ITS ---
Documentation for date of: 12/26/23 Subjective Subjective Interval history: 43-year-old male with no significant past medical history who presented to the ED on 12/21/2023 with a chief complaint of abdominal pain. Pain started in the epigastric region that then migrated to right lower quadrant, he was diagnosed with acute appendicitis and underwent laparoscopic appendectomy on 12/20, during procedure patient found to have a gangrenous perforated appendix and free purulent material, patient tolerated well procedure. Internal medicine team consulted on 12/22 due to tachycardia and hypoxia, initial CXR showed free-air under diaphragm, chest CTA showed pneumonia in the right lung base with right pleural effusion, negative for PE. CT abdomen pelvis showed pneumoperitoneum, fluid subcapsular to the liver, fluid collection below the liver pericecal, consider abscess. Rapid response was called around 7:30pm due to hypoxia requiring high flow NC, on arrival patient tachycardic in the 140s complaining of abdominal pain, surgeon Dr Rubio contacted who recommended immediate surgical exploration. During procedure patient was found to have small bowel perforation & free feccal material, cavity was washed, s/p ilestomy;delayed primary closure, wound vac in place. Patient was then transferred postprocedure to ICU, upon arrival to the unit patient was tachycardic in the 160s saturating 90%, chest x ray was ordered which showed right main bronch intubation, tube pulled back, adequate O2 improvement to 98%. 12/25/2023: Patient examined at the bedside, currently in ICU following ex lap and ileostomy, for small bowel perforation, following prior appendectomy for perforated appendix. Patient was hypotensive overnight, started on pressors, IV Levophed to maintain MAP more than 65. Sedated for analgesia, but patient was in discomfort, likely due to pain, sinus tachycardia up to the 140s, overbreathing the ventilator. Received Dilaudid 2 mg, which resulted in improvement of sinus tachycardia and synchronization with the ventilator. ABGs this morning showed mixed respiratory acidosis and metabolic acidosis. Ventilation settings adjusted, to VC plus mode, respiratory rate. Repeat ABG 1 hour later showed resolution of respiratory acidosis. Continue with sedation RASS target -3. Pt was placed on [place]et[place] for hemodynamic measurements and bedside ultrasound was done for IVC measurement. patient hemodynamically volume depleted, anesthesia records and operation notes were reviewed, estimated volume loss including during surgery and ICU stay, 1600 mL, urine output continued to decline, patient received 3 L IV fluids and IV albumin was given. Noted improvement in urine output to more than 20 mL/h. 12/26/2023 patient examined at bedside, overnight events reviewed, adequate urine output overnight, 600 mL per shift superintendent caustic cresylate, as well as 150 cc in the ileostomy drain. Maintaining vitals, off pressors. Labs pertinent for leukocytosis, hypocalcemia, worsening BUN/creatinine despite increasing urine output, ABGs show resolution of metabolic and respiratory acidosis. Patient seen overbreathing the ventilator, RASS -1/-2, respiratory therapist confirmed weaning parameters, including minimal FiO2 requirement PEEP, NIF -41, cough reflex present, patient was extubated. Pending swallow screen in the p.m., general surgeon Dr. Rubio spoke to Dr. Parra, per general surgery patient can be started on diet. If unable to tolerate p.o. plan to initiate tube feeds. Continue antibiotics for intra-abdominal sepsis post small bowel perforation, infectious disease recommendations appreciated. Exam Vital Signs Temp Pulse Resp BP Pulse Ox O2 Del Method O2 Flow Rate 99.4 F 129 H 20 142/93 H 95 Mechanical Ventilation 4 12/26/23 04:00 12/26/23 10:42 12/26/23 10:42 12/26/23 10:05 12/26/23 10:42 12/25/23 18:00 12/26/23 10:42 FiO2 35 12/26/23 10:05 Narrative Exam GENERAL: Extubated today, drowsy but easily arousable, following commands HEENT: Normocephalic, atraumatic and nontender.? Pupils are pinpoint. NECK: Supple without adenopathy. Trachea midline, no JVD.? CHEST: Tachycardic, no murmurs, Nontender on palpation, no deformity LUNGS: Lung sounds are clear.? No wheezing, rales or ronchi.? Intubated ABDOMEN: Distended, ileostomy bag containingblood-tinged fluid, midline surgical wound covered with dressing which is dry and clean. EXTREMITIES: No pitting edema.? SKIN: No rashes noted. NEURO: No focal neurological deficits appreciated Objective Labs 12/26/23 05:33 12/26/23 05:33 Labs: Laboratory Results - last 24 hr 12/25/23 12/26/23 12/26/23 08:40 05:33 06:56 WBC 25.3 H D RBC 4.12 L Hgb 11.8 L Hct 35.9 L MCV 87 MCH 28.6 MCHC 32.9 RDW Std Deviation 49.7 H Plt Count 327 Neut % (Auto) 81 H Lymph % (Auto) 5 L [place] % (Auto) 12 Eos % (Auto) 0 Baso % (Auto) 0 Neut # (Auto) 20.4 H Lymph # (Auto) 1.4 [place] # (Auto) 3.0 H Eos # (Auto) 0.1 Baso # (Auto) 0.1 Immature Gran # (Auto) 0.36 H Absolute Nucleated RBC 0.05 H Immature Gran % 1 H Nucleated RBC % 0 Puncture Site Right Radial ABG pH 7.34 L ABG pCO2 43 ABG pO2 95 ABG HCO3 23 ABG O2 Saturation 98 ABG Base Excess -2 FiO2 35 Sodium 136 138 Potassium 4.2 3.8 Chloride 108 H 107 Carbon Dioxide 22.5 22.1 Anion Gap 6 L 9 BUN 18 33 H Creatinine 1.6 H D 2.9 H D Estim Creat Clear Calc 57.8 L 31.5 L eGFR 55 L 27 L BUN/Creatinine Ratio 11 L 11 L Glucose 168 H 152 H Calculated Osmolality 277 285 Calcium 7.2 L D 7.5 L Corrected Calcium 8.1 L 8.1 L Phosphorus 4.1 2.8 Magnesium 2.2 Total Bilirubin 0.8 D 0.8 Direct Bilirubin 0.5 H AST 24 30 ALT 14 13 Alkaline Phosphatase 83 86 Total Protein 5.1 L 5.4 L Albumin 2.9 L D 3.2 L Globulin 2.2 L 2.2 L Albumin/Globulin Ratio 1.3 1.5 12/26/23 10:15 WBC RBC Hgb Hct MCV MCH MCHC RDW Std Deviation Plt Count Neut % (Auto) Lymph % (Auto) [place] % (Auto) Eos % (Auto) Baso % (Auto) Neut # (Auto) Lymph # (Auto) [place] # (Auto) Eos # (Auto) Baso # (Auto) Immature Gran # (Auto) Absolute Nucleated RBC Immature Gran % Nucleated RBC % Puncture Site Right Radial ABG pH 7.36 ABG pCO2 41 ABG pO2 87 ABG HCO3 23 ABG O2 Saturation 98 ABG Base Excess -2 FiO2 35 Sodium Potassium Chloride Carbon Dioxide Anion Gap BUN Creatinine Estim Creat Clear Calc eGFR BUN/Creatinine Ratio Glucose Calculated Osmolality Calcium Corrected Calcium Phosphorus Magnesium Total Bilirubin Direct Bilirubin AST ALT Alkaline Phosphatase Total Protein Albumin Globulin Albumin/Globulin Ratio ABG Interpretation ABG results: 12/21/23 12/24/23 12/25/23 15:50 19:45 02:34 ABG pH 7.40 7.23 L D ABG pCO2 40 56 H D ABG pO2 134 H 229 H D ABG HCO3 25 24 ABG O2 Saturation 99 H 100 H ABG Base Excess 0 -5 L VBG pH 7.48 VBG pCO2 35 L VBG pO2 56 VBG Base Excess 2 12/25/23 12/25/23 12/26/23 04:54 10:48 06:56 ABG pH 7.25 L 7.33 L 7.34 L ABG pCO2 52 H 45 43 ABG pO2 93 D 99 95 ABG HCO3 23 23 23 ABG O2 Saturation 97 98 98 ABG Base Excess -5 L -3 -2 VBG pH VBG pCO2 VBG pO2 VBG Base Excess 12/26/23 10:15 ABG pH 7.36 ABG pCO2 41 ABG pO2 87 ABG HCO3 23 ABG O2 Saturation 98 ABG Base Excess -2 VBG pH VBG pCO2 VBG pO2 VBG Base Excess Quality Measures Quality Measures none Assessment & Plan Assessment Current Active Medications: Generic Name Dose Route Start Last Admin Trade Name Freq PRN Reason Stop Dose Admin Acetaminophen 650 mg 12/23/23 08:46 Acetaminophen 325 Mg Tablet PO 01/20/24 23:30 Q6HR PRN FEVER>101.5 Heparin Sodium (Porcine) 5,000 unit 12/24/23 06:00 12/26/23 05:02 Heparin Sod Inj 5000 Unit/Ml Vial SC 01/07/24 05:59 5,000 unit Q8HR TAL Administration Piperacillin Sod/Tazobactam 100 mls @ 25 mls/hr 12/22/23 06:00 12/26/23 05:02 Sod 4.5 gm/ Sodium Chloride IV 12/29/23 05:59 25 mls/hr Q8HR TAL Administration Fentanyl Citrate 2,500 mcg in 250 mls @ 2.5 mls/hr 12/24/23 23:50 12/26/23 06:00 Sublimaze Inj 2,500 Mcg/250 Ml Bag IV 12/29/23 23:49 200 mcg/hr .Q24H PRN 20 mls/hr PER PROTOCOL Titration Protocol 25 MCG/HR Dexmedetomidine/Sodium Chloride 400 mcg in 100 mls @ 4.559 mls/hr 12/25/23 00:46 12/25/23 07:10 Precedex Ivpb IV 01/24/24 00:45 0 mcg/kg/hr .[id number] PRN 0 mls/hr Per PROTOCOL Titration Protocol 0.2 MCG/KG/HR Norepinephrine/Dextrose 8 mg in 250 mls @ 8.547 mls/hr 12/25/23 03:14 12/25/23 12:25 Levophed In D5w 8mg/250ml IV 01/24/24 03:13 0 mcg/kg/min .Q24H PRN 0 mls/hr PER PROTOCOL Titration Protocol 0.05 MCG/KG/MIN Propofol 1,000 mg in 100 mls @ 2.436 mls/hr 12/25/23 07:11 12/26/23 06:00 Diprivan Ivpb IV 01/24/24 07:10 30 mcg/kg/min .Q24H PRN 14.616 mls/hr PER PROTOCOL Titration Protocol 5 MCG/KG/MIN Lactated Ringer's 1,000 mls @ 200 mls/hr 12/26/23 10:35 12/26/23 11:58 Lactated Ringers IV 12/26/23 15:34 200 mls/hr .Q5H ONE Administration Fluconazole 400 mg in 200 mls @ 100 mls/hr 12/26/23 10:57 12/26/23 11:58 Diflucan/Ns Ivpb IV 12/30/23 10:56 100 mls/hr QDAY TAL Administration Ketorolac Tromethamine 30 mg 12/22/23 00:22 12/24/23 13:26 Ketorolac Inj 30 Mg/Ml Vial IVP 12/26/23 23:30 30 mg Q6HR PRN Administration PAIN SCALE 1-3 (mild Morphine Sulfate 5 mg 12/24/23 09:46 12/25/23 00:25 Morphine Sulf Inj 10 Mg/Ml Vial IVP 12/26/23 23:54 5 mg Q4HR PRN Administration PAIN SCALE 4-10(Mod-Sev Ondansetron HCl 4 mg 12/21/23 23:31 12/23/23 13:00 Ondansetron Inj 2 Mg/Ml Inj 2 Ml IV 01/20/24 23:30 4 mg Q4HR PRN Administration NAUSEA OR VOMITING Pantoprazole Sodium 40 mg 12/26/23 09:00 12/26/23 10:11 Pantoprazole Inj 40 Mg Vial IVP 01/25/24 08:59 40 mg QDAY TAL Administration Protocol Plan 43-year-old male with no significant past medical history who presented to the ED on 12/21/2023 with a chief complaint of abdominal pain. Pain started in the epigastric region that then migrated to right lower quadrant, he was diagnosed with acute appendicitis and underwent laparoscopic appendectomy on 12/20, during procedure patient found to have a gangrenous perforated appendix and free purulent material, patient tolerated well procedure. Internal medicine team consulted on 12/22 due to tachycardia and hypoxia, initial CXR showed free-air under diaphragm, chest CTA showed pneumonia in the right lung base with right pleural effusion, negative for PE. CT abdomen pelvis showed pneumoperitoneum, fluid subcapsular to the liver, fluid collection below the liver pericecal, consider abscess. Rapid response was called around 7:30pm due to hypoxia requiring high flow NC, on arrival patient tachycardic in the 140s complaining of abdominal pain, surgeon Dr Rubio contacted who recommended immediate surgical exploration. During procedure patient was found to have small bowel perforation & free feccal material, cavity was washed, s/p ilestomy;delayed primary closure, wound vac in place. Patient was then transferred postprocedure to ICU, upon arrival to the unit patient was tachycardic in the 160s saturating 90%, chest x ray was ordered which showed right main bronch intubation, tube pulled back, adequate O2 improvement to 98%. [employer] -Discontinued sedation, RASS 0, patient is now waking up following extubation, more active and alert today -Stable Respiratory #Acute hypoxic respiratory failure?resolved during #Pneumonia right lung & atelectasis -Patient met oxygenation and ventilation parameters today, weaning parameters met, patient extubated, currently on nasal cannula oxygen, saturating 98% -Continue Zosyn and Micafungin -Incentive spirometry CVS #Hypovolemic shock?resolved #Septic shock?resolved #Sinus Tachycardia -EKG shows sinus tachycardia -In the setting of pain and sepsis, also hypovolemia -Pain regimen in place -IV fluids added to replace insensible losses, 1 L LR at 200 cc Renal #ANITHA , - in the setting of hypovolemia, urine output below goal, GI #Acute appendicitis s/p appendectomy #Small bowel perforation #Peritonitis -s/p ex lap, cavity washout, ileostomy, delayed primary closure wound vac in place -iv Zosyn -General surgeon Dr Weiss Infectious #Sepsis due to #Pneumonia and peritonitis -As above , on Zosyn Endo -Stable Disposition: Patient transferred to ICU following ex lap. Small bowel perforation and peritonitis Diet and fluids:NPO DVT prophylaxis:Heparin GI prophylaxis:Pantoprazole CODE STATUS:FULL CODE [place]:In place Lines:Peripheral Patient's care discussed with attending physician, Dr Fidel Oswald Pgy 2
--- NOTE | 2023-12-26 13:17 | ESCONSULT_ITS ---
RE: MAHOGANY MCCAIN : 1980 DATE OF CONSULTATION: 12/26/2023 REFERRING PHYSICIAN: Dr. Weiss and also Dr. Parra. REASON FOR CONSULTATION: Appendicitis, perforated, respiratory failure and possible borderline diabetes plus glucose intolerance with acute kidney injury. HISTORY OF PRESENT ILLNESS: The patient is an unfortunate 43-year-old man who lives with his and children. They have been together about 25 years. He has no prior health concerns, takes no regular medications. He has only had the appendectomy on the and subsequent exploratory laparotomy on discovering a perforation on the . He was briefly intubated overnight. He has now been extubated. ALLERGIES: NONE NOTED. IMMUNIZATIONS: Last tetanus about a year ago. He does take a flu shot every year, has not had COVID vaccine or pneumococcal vaccine and neither routine for him. FAMILY HISTORY: Presently unremarkable. SOCIAL HISTORY: Lives with his for 25 years, has 3 children with her, and he quit smoking a couple of months ago. He has only been sick relatively recently. Dr. Weiss has operated on him to document the presence of contamination in the peritoneum, so there is a trial looking at duration of therapy in that setting. He is told to STOP-IT trial and it has been only 5 days, which is equivalent to longer treatment and in terms of the risk of later abscess finding. RECOMMENDATIONS: At this point, I have no objection to the Zosyn, I am going to continue it apparently for 5 days from surgery, which was done about the , 5 days should be through the , which should be thru Friday or so. I will check on the patient again on Friday, the . That may be the stopping point for the antibiotics. I will look forward to seeing him at that time. DT: 11:09:57 TT: 11:42:00 Ref: [id number] - TID: [id number] MTDD
[2023-12-26] MEDS: HYDROmorphone INJ 2 MG/ML VIAL IVP (13:21)
--- NOTE | 2023-12-26 14:19 | PD.RESEVENT ---
Documentation for date of: 12/26/23 Event Note Event Note: We receive a downgrade from ICU, patient is 43-year-old male without past medical history who was initially presented with abdominal pain and found to have an acute appendicitis and underwent laparoscopic appendectomy on 12/20, found to have a gangrenous perforated appendix and free purulent material. Patient tolerated procedure well however postsurgical patient developed severe abdominal pain, become tachycardic, repeat CT abdomen pelvis showed pneumoperitoneum, fluid collection below the liverand pericecal abscess. Rapid response was called on floors due to patient was hypoxic, Dr. Rubio contacted who recommended immediate surgical exploration. Patient found to have small bowel perforation and free feculent material, cavity was washed, ileostomy was placed. Patient then transferred to ICU for post surgical close monitoring. During ICU stay patient condition stabilized, patient started to make adequate urine, overnight patient had 600 mL urine output, ileostomy drain was 150. Per ICU team patient is stable to be downgraded, they will try to initiate p.o. intake, if patient is unable to tolerate p.o. plan to initiate tube feeds. Continue antibiotics for intra-abdominal sepsis post small bowel perforation. ID is on board. We will resume care tomorrow morning, however we will give extensive signout to manager business operations. Patient care was discussed with attending physician Dr. Pee Garrett MD PGY-2
--- NOTE | 2023-12-26 15:44 | PC.SS ---
Update: Patient to downgraded to Tele.
--- NOTE | 2023-12-26 16:42 | PD.SURPROG ---
Documentation for date of: 12/26/23 Subjective Subjective Narrative: Pt was extubated this am, reports pain is controlled, denies nausea, had <100cc output from NG and ileostomy is functioning. No drainage from wound vac, WBC 25 remaining afebrile Exam Vital Signs Temp Pulse Resp BP Pulse Ox O2 Del Method O2 Flow Rate 98.2 F 117 H 22 H 136/89 H 98 Nasal Cannula 4 12/26/23 12:00 12/26/23 16:00 12/26/23 12:08 12/26/23 12:08 12/26/23 12:08 12/26/23 12:00 12/26/23 10:42 FiO2 35 12/26/23 10:05 Constitutional Constitutional: no acute distress Routine Respiratory Exam Respiratory: Present no resp distress Routine Abdominal Exam Abdominal: Present soft, distended (mild distention), wound (midline wound with vac in place, no drainage) and ostomy (ileostomy red with green liquid stool in appliance) Results Results: Laboratory Laboratory results: results reviewed Assessment & Plan Plan 43M who presented with perforated appendicitis s/p appendectomy with repair of adherent ileum 12/20, course complicated by leakage at site of ileal repair requiring emergent laparotomy and ileostomy creation 12/23, pt now gradually recovering DC NG, ok to have sips/ice chips Strict I&O Wound vac change tomorrow Continue zosyn Procedures Procedures Exploratory laparotomy and closure of the distal stump of the ileum and diverting ileostomy and peritoneal lavage.
--- NOTE | 2023-12-26 20:29 | PC.NURSE ---
Spoke to MD Rubio at this time, updated patients last VS, pt tolerated extubation at day time. Clarified PRN pain medication, per MD can give PRN as ordered and to call MD Orantes if there are any changes as she is oncall for the weekend
[2023-12-26] MEDS: KETOROLAC INJ 30 MG/ML VIAL IVP (21:18)
[2023-12-27] VITALS (9 sets, daily range): BP systolic 136–163; BP diastolic 88–101; PULSE 93–107; RESP 20–97; TEMP 36.2–37.2; O2SAT 94–99; BMI 34.1
[2023-12-27] MEDS: PIPER/TAZO INJ 4.5 GM in SODIUM CHLORIDE 0.9% (P) 100 ML IV ×3 (05:07→21:43)
[2023-12-27] MEDS: HEPARIN SOD INJ 5000 UNIT/ML VIAL SC ×2 (05:09→20:20)
[2023-12-27 06:55] LABS: Basophils # (Auto) 0.1 Thou/mm3 (0.0-0.2); Basophils % (Auto) 1 % (0-2.5); Eosinophils # (Auto) 0.3 Thou/mm3 (0.0-0.5); Eosinophils % (Auto) 1 % (0-10); Hematocrit 36.3 % (41.0-53.0); Hemoglobin 11.7 g/dL (13.5-16.0); Immature Granulocytes % (Auto) 4 % (0-0); Immature Granulocytes Auto 1.14 Thou/mm3 (0.00-0.00); Lymphocytes # (Auto) 1.1 Thou/mm3 (1.0-4.8); Lymphocytes % (Auto) 4 % (10-50); Mean Corpuscular HGB Conc 32.2 g/dl (31.0-37.0); Mean Corpuscular Hemoglobin 28.5 pg (25.0-35.0); Mean Corpuscular Volume 89 fL (80-100); Monocytes # (Auto) 2.5 Thou/mm3 (0.0-0.8); Monocytes % (Auto) 9 % (0-12); Neutrophils # (Auto) 22.9 Thou/mm3 (1.8-7.7); Neutrophils % (Auto) 81 % (37-80); Nucleated Red Blood Cell # 0.03 Thou/mm3 (0.00-0.00); Nucleated Red Blood Cell % 0 /100 WBC (0); Platelet Count 343 Thou/mm3 (140-440); White Blood Count 28.1 Thou/mm3 (3.8-10.6)
[2023-12-27 07:19] LABS: B-Type Natriuretic Peptide < 20 pg/mL (0-100)
[2023-12-27 07:34] LABS: Alanine Aminotransferase 18 U/L (10-49); Albumin, Serum 3.5 gm/dL (3.5-5.0); Albumin/Globulin Ratio 1.4 (1.2-2.2); Alkaline Phosphatase 109 U/L (46-116); Anion Gap 11 (7-16); Aspartate Amino Transferase 46 U/L (0-34); BUN/Creatinine Ratio 14 Ratio (12-20); Bilirubin,Total 0.8 mg/dL (0.3-1.2); Blood Urea Nitrogen 41 mg/dL (9-23); Calcium 8.5 mg/dL (8.3-10.6); Calcium (Corrected) 8.9 mg/dL (8.5-10.1); Carbon Dioxide 23.9 mMol/L (20.0-31.0); Chloride 109 mMol/L (98-107); Creatinine (Component) 2.9 mg/dL (0.6-1.3); Estimated Creatinine Clearance 33.7 mL/min (>60); Globulin 2.5 gm/dL (2.3-3.5); Glucose 141 mg/dL (74-106); Magnesium 2.7 mg/dL (1.6-2.6); Osmolality,Calculated 298 (275-295); Phosphorous 2.7 mg/dL (2.4-5.1); Potassium 3.7 mMol/L (3.4-5.1); Sodium 144 mMol/L (136-145); eGFR 27 See Note
[2023-12-27 07:45] LABS: Glucose Estimated Average 120 mg/dL (80-131); Hemoglobin A1C 5.8 % Hgb (4.8-6.0)
[2023-12-27] MEDS: PANTOPRAZOLE INJ 40 MG VIAL IVP (09:21)
[2023-12-27] MEDS: FLUCONAZOLE/NS 400 MG IVPB 400 MG/200 ML BAG 100 MG IV (09:21)
[2023-12-27 10:58] LABS: HIV (1&2) Antibody Rapid Non-Reactive
--- NOTE | 2023-12-27 12:26 | ESPR_ITS ---
Documentation for date of: 12/27/23 Subjective Subjective Interval history: Patient seen and assessed at bedside this morning. Patient is currently denying any pain at this time. Patient saturating well on 1 L nasal cannula. Patient does state to be hungry and was requesting apple juice. Patient tolerated liquid diet. Will continue with full liquid diet for now and advance per surgery recommendations. Colostomy bag draining properly dark-colored watery stool with some gas. Patient denies passing any gas or bowel movements. Patient denies any abdominal tenderness, shortness of breath, fever, or chills at this time. Exam Vital Signs Temp Pulse Resp BP Pulse Ox O2 Del Method O2 Flow Rate 98.5 F 95 21 H 152/93 H 99 Nasal Cannula 1 12/27/23 12:00 12/27/23 12:00 12/27/23 12:00 12/27/23 12:00 12/27/23 12:00 12/27/23 12:00 12/27/23 12:00 FiO2 35 12/26/23 10:05 Narrative Exam GENERAL: Ill-appearing middle-aged male. On nasal cannula. AO x 3. CHEST: Tachycardic, no murmurs, Nontender on palpation, no deformity LUNGS: Mild rhonchi on auscultation, slightly tachypneic ABDOMEN: Distended, ileostomy bag containingblood-tinged fluid, midline surgical wound covered with dressing which is dry and clean. EXTREMITIES: No pitting edema.? SKIN: No rashes noted. NEURO: No focal neurological deficits appreciated Objective Labs 01/02/24 05:43 01/02/24 05:43 Labs: Laboratory Results - last 24 hr 12/27/23 06:00 WBC 28.1 H RBC 4.10 L Hgb 11.7 L Hct 36.3 L MCV 89 MCH 28.5 MCHC 32.2 RDW Std Deviation 52.0 H Plt Count 343 Neut % (Auto) 81 H Lymph % (Auto) 4 L [place] % (Auto) 9 Eos % (Auto) 1 Baso % (Auto) 1 Neut # (Auto) 22.9 H Lymph # (Auto) 1.1 [place] # (Auto) 2.5 H Eos # (Auto) 0.3 Baso # (Auto) 0.1 Immature Gran # (Auto) 1.14 H Absolute Nucleated RBC 0.03 H Immature Gran % 4 H Nucleated RBC % 0 Sodium 144 Potassium 3.7 Chloride 109 H Carbon Dioxide 23.9 Anion Gap 11 BUN 41 H Creatinine 2.9 H Estim Creat Clear Calc 33.7 L eGFR 27 L BUN/Creatinine Ratio 14 [address]ucose [address] Glu mg/dL 120 Hemoglobin A1c 5.8 Calculated Osmolality 298 H Calcium 8.5 Corrected Calcium 8.9 Phosphorus 2.7 Magnesium 2.7 H Total Bilirubin 0.8 AST 46 H ALT 18 Alkaline Phosphatase 109 D B-Natriuretic Peptide < 20 Total Protein 6.0 Albumin 3.5 Globulin 2.5 Albumin/Globulin Ratio 1.4 HIV 1&2 Antibody Rapid Non-Reactive ABG Interpretation ABG results: 12/21/23 12/24/23 12/25/23 15:50 19:45 02:34 ABG pH 7.40 7.23 L D ABG pCO2 40 56 H D ABG pO2 134 H 229 H D ABG HCO3 25 24 ABG O2 Saturation 99 H 100 H ABG Base Excess 0 -5 L VBG pH 7.48 VBG pCO2 35 L VBG pO2 56 VBG Base Excess 2 12/25/23 12/25/23 12/26/23 04:54 10:48 06:56 ABG pH 7.25 L 7.33 L 7.34 L ABG pCO2 52 H 45 43 ABG pO2 93 D 99 95 ABG HCO3 23 23 23 ABG O2 Saturation 97 98 98 ABG Base Excess -5 L -3 -2 VBG pH VBG pCO2 VBG pO2 VBG Base Excess 12/26/23 10:15 ABG pH 7.36 ABG pCO2 41 ABG pO2 87 ABG HCO3 23 ABG O2 Saturation 98 ABG Base Excess -2 VBG pH VBG pCO2 VBG pO2 VBG Base Excess Quality Measures Quality Measures none Assessment & Plan Assessment Current Active Medications: Generic Name Dose Route Start Last Admin Trade Name Freq PRN Reason Stop Dose Admin Acetaminophen 650 mg 12/23/23 08:46 Acetaminophen 325 Mg Tablet PO 01/20/24 23:30 Q6HR PRN FEVER>101.5 Heparin Sodium (Porcine) 5,000 unit 12/27/23 21:00 Heparin Sod Inj 5000 Unit/Ml Vial SC 01/10/24 20:59 Q12HR TAL Piperacillin Sod/Tazobactam 100 mls @ 25 mls/hr 12/22/23 06:00 12/27/23 05:07 Sod 4.5 gm/ Sodium Chloride IV 12/29/23 05:59 25 mls/hr Q8HR TAL Administration Fluconazole 400 mg in 200 mls @ 100 mls/hr 12/26/23 10:57 12/27/23 09:21 Diflucan/Ns Ivpb IV 12/30/23 10:56 100 mls/hr QDAY TAL Administration Ondansetron HCl 4 mg 12/21/23 23:31 12/23/23 13:00 Ondansetron Inj 2 Mg/Ml Inj 2 Ml IV 01/20/24 23:30 4 mg Q4HR PRN Administration NAUSEA OR VOMITING Pantoprazole Sodium 40 mg 12/26/23 09:00 12/27/23 09:21 Pantoprazole Inj 40 Mg Vial IVP 01/25/24 08:59 40 mg QDAY TAL Administration Protocol Plan 43-year-old male with no significant past medical history who presented to the ED on 12/21/2023 with a chief complaint of abdominal pain. Pain started in the epigastric region that then migrated to right lower quadrant, he was diagnosed with acute appendicitis and underwent laparoscopic appendectomy on 12/20, during procedure patient found to have a gangrenous perforated appendix and free purulent material, patient tolerated well procedure. Internal medicine team consulted on 12/22 due to tachycardia and hypoxia, initial CXR showed free-air under diaphragm, chest CTA showed pneumonia in the right lung base with right pleural effusion, negative for PE. CT abdomen pelvis showed pneumoperitoneum, fluid subcapsular to the liver, fluid collection below the liver pericecal, consider abscess. Rapid response was called around 7:30pm due to hypoxia requiring high flow NC, on arrival patient tachycardic in the 140s complaining of abdominal pain, surgeon Dr Rubio contacted who recommended immediate surgical exploration. During procedure patient was found to have small bowel perforation & free feccal material, cavity was washed, s/p ilestomy; delayed primary closure, wound vac in place. #Severe sepsis secondary to ruptured appendix status post ex lap for small bowel perforation status post colostomy bag?improving #Septic shock?resolved #Hypovolemic shock?resolved ?Patient on Zosyn until ?2023 and started on fluconazole by ID ? Followed by ID, appreciate recommendations ?Wound VAC in place ?Surgery managing patient and consulted IM team for further management ?We recommend continuing patient on Zosyn and fluconazole per ID recommendations ?We recommend continued IV hydration until patient is fully able to tolerate meals and full oral intake ? Will advance diet per surgery #Acute hypoxic respiratory failure?improving #Pneumonia right lung -Patient met oxygenation and ventilation parameters, weaning parameters met, patient extubated 12/25, currently on nasal cannula oxygen, saturating 98% -Recommend to continue Zosyn to cover for pneumonia and otitis -Recommend continuing incentive spirometry ?Continue to wean off oxygen as able #ANITHA?stable -Likely secondary to sepsis causing ATN ?Will continue patient on IV fluids ?Will continue monitoring urine output ?Will consider consulting nephrology if no improvement in creatinine ?Avoid nephrotoxic agents ?Renally dose medications #Sinus Tachycardia -In the setting of pain and sepsis -Pain regimen in place -Recommend continued IV fluids #Normocytic anemia ?Likely in setting of recent surgery and IV hydration ?No signs of active bleeding ?Will continue to monitor H&H Diet: Full liquids DVT prophylaxis:Heparin GI prophylaxis:Pantoprazole CODE STATUS:FULL CODE Villarreal:In place Lines:Peripheral Patient's care discussed with attending physician, Dr Pee Frias MD PGY3 Attending Provider Attestation/Addendum Attending Attestation: I have examined the patient, reviewed labs and imaging findings, discussed the case with the resident/s, and reviewed orders. I agree with the plan of care as outlined in this note, with these additional summaries/recommendations: Mr. Pyle is a generally healthy joesph who had the misfortune to suffer from a ruptured appendix and its complications. Currently healing from shock associated therein, as described above. Will continue to monitor and advance diet, anticipate 5 day course of ABX per ID (STOPIT trial). Appreciate main plan as per general surgery. Maria Glasgow MD
[2023-12-27] MEDS: HYDROmorphone INJ 2 MG/ML VIAL 1 MG IVP (14:09)
--- NOTE | 2023-12-27 14:31 | PD.SURPROG ---
Documentation for date of: 12/27/23 Subjective Subjective Narrative: Pain controlled, no nausea, tolerating liquids and having ileostomy output, WBC 28 remaining afebrile Exam Vital Signs Temp Pulse Resp BP Pulse Ox O2 Del Method O2 Flow Rate 98.5 F 95 21 H 152/93 H 99 Nasal Cannula 1 12/27/23 12:00 12/27/23 12:00 12/27/23 12:00 12/27/23 12:00 12/27/23 12:00 12/27/23 12:00 12/27/23 12:00 FiO2 35 12/26/23 10:05 Constitutional Constitutional: no acute distress Routine Respiratory Exam Respiratory: Present no resp distress Routine Abdominal Exam Abdominal: Present soft, distended (mild distention), wound (midline wound with beefy red granulation tissue, no surrounding erythema) and ostomy (ileostomy red with patchy dusky areas, gas and green liquid stool in appliance); Absent tenderness Results Results: Laboratory Laboratory results: results reviewed Assessment & Plan Plan 43M who presented with perforated appendicitis s/p appendectomy with repair of adherent ileum 12/20, course complicated by leakage at site of ileal repair requiring emergent laparotomy and ileostomy creation 12/23, pt now gradually recovering FLD Strict I&O DC russo when Cr improving Wound vac changed today, next due Mon 12/28 Procedures Procedures Exploratory laparotomy and closure of the distal stump of the ileum and diverting ileostomy and peritoneal lavage.
[2023-12-27] MEDS: oxyCODONE/APAP 5/325 TABLET 1 TAB PO (20:54)
[2023-12-27] MEDS: ONDANSETRON INJ 2 MG/ML INJ 2 ML 4 MG IV (21:46)
[2023-12-28] VITALS (10 sets, daily range): BP systolic 149–171; BP diastolic 88–102; PULSE 79–104; RESP 12–32; TEMP 36.2–37.4; O2SAT 89–95; BMI 34.1
[2023-12-28] MEDS: PIPER/TAZO INJ 4.5 GM in SODIUM CHLORIDE 0.9% (P) 100 ML IV ×3 (05:59→22:23)
[2023-12-28 06:13] LABS: Basophils % (Auto) 0 % (0-2.5); Eosinophils % (Auto) 0 % (0-10); Hematocrit 33.4 % (41.0-53.0); Immature Granulocytes % (Auto) 4 % (0-0); Immature Granulocytes Auto 1.67 Thou/mm3 (0.00-0.00); Lymphocytes # (Auto) 1.4 Thou/mm3 (1.0-4.8); Lymphocytes % (Auto) 4 % (10-50); Mean Corpuscular HGB Conc 32.9 g/dl (31.0-37.0); Mean Corpuscular Hemoglobin 28.3 pg (25.0-35.0); Mean Corpuscular Volume 86 fL (80-100); Monocytes # (Auto) 2.3 Thou/mm3 (0.0-0.8); Monocytes % (Auto) 6 % (0-12); Neutrophils # (Auto) 33.2 Thou/mm3 (1.8-7.7); Neutrophils % (Auto) 86 % (37-80); Nucleated Red Blood Cell # 0.04 Thou/mm3 (0.00-0.00); Nucleated Red Blood Cell % 0 /100 WBC (0); Platelet Count 374 Thou/mm3 (140-440); RDW Standard Deviation 50.1 fL (35.1-43.9); Red Blood Count 3.89 Miln/mm3 (4.50-5.90)
[2023-12-28 06:23] LABS: White Blood Count 38.7 Thou/mm3 (3.8-10.6)
[2023-12-28 06:57] LABS: Path Review Blood Smear Sent to Pathologist
[2023-12-28 07:01] LABS: Alanine Aminotransferase 15 U/L (10-49); Albumin, Serum 3.4 gm/dL (3.5-5.0); Albumin/Globulin Ratio 1.3 (1.2-2.2); Alkaline Phosphatase 112 U/L (46-116); Anion Gap 11 (7-16); Aspartate Amino Transferase 35 U/L (0-34); BUN/Creatinine Ratio 18 Ratio (12-20); Bilirubin,Total 0.6 mg/dL (0.3-1.2); Blood Urea Nitrogen 46 mg/dL (9-23); Calcium 8.2 mg/dL (8.3-10.6); Calcium (Corrected) 8.7 mg/dL (8.5-10.1); Carbon Dioxide 23.1 mMol/L (20.0-31.0); Chloride 110 mMol/L (98-107); Creatinine (Component) 2.5 mg/dL (0.6-1.3); Estimated Creatinine Clearance 39.1 mL/min (>60); Globulin 2.6 gm/dL (2.3-3.5); Glucose 186 mg/dL (74-106); Magnesium 2.7 mg/dL (1.6-2.6); Osmolality,Calculated 303 (275-295); Potassium 3.6 mMol/L (3.4-5.1); Sodium 144 mMol/L (136-145); eGFR 32 See Note
--- NOTE | 2023-12-28 07:03 | XR_ITS ---
Examination: AP chest single view Technique: AP portable upright chest single view Exam date and time: December 28, 2023 at 0732 hrs. Comparison December 26, 2023 Indications: Difficulty breathing this week, bibasilar pneumonia on chest film December 26, 2023 Findings: Pneumonia at the lung bases has cleared Subsegmental atelectasis left base Reduced in respiratory effort Mild prominence left ventricle Air distended stomach Impression: Bibasilar pneumonia has cleared Significantly air distended stomach
[2023-12-28] MEDS: SODIUM CHLORIDE 0.9% 1000 ML 1,000 ML 75 ML IV (09:16)
[2023-12-28] MEDS: PANTOPRAZOLE INJ 40 MG VIAL IVP (09:16)
[2023-12-28] MEDS: HEPARIN SOD INJ 5000 UNIT/ML VIAL SC ×2 (09:16→21:12)
[2023-12-28] MEDS: FLUCONAZOLE/NS 400 MG IVPB 400 MG/200 ML BAG 100 MG IV (09:16)
--- NOTE | 2023-12-28 11:04 | XR_ITS ---
Examination: CT abdomen with intravenous contrast CT pelvis with intravenous contrast 2-D coronal reconstructions 2-D sagittal reconstructions Date and time of exam:December 28, 2023 1251 hrs. Comparison December 24, 2023, post appendectomy abdominal pain. CTDI: vol (mGy) 11.2 DLP: (mGycm) 687 Technique: Multiple axial sections of the abdomen and pelvis have been obtained. 64 slice high-resolution scanner used. 3 mm axial sections have been obtained, post intravenous injection 60 cc [id number] 2-D sagittal, coronal reconstructions obtained. Low dose protocols were performed. One or more of the following dose reduction techniques were used; automated exposure control, adjustment of the mA and/or KV according to patient size, use of iterative reconstruction technique. Findings: Significant pneumonia right base Mild pneumonia left base Minimal bilateral pleural fluid Pneumoperitoneum Subphrenic fluid and fluid subcapsular to the liver No gallstones No pancreatic or adrenal mass No hydronephrosis Fluid below the right lobe the liver, axial image 144, measuring 7.7 x 3.9 cm which may be free fluid Diffuse peritoneal enhancement consistent with peritonitis Absent appendix Right ostomy Diffuse urinary bladder wall thickening, Villarreal catheter in the urinary bladder Impression: Significant pneumonia right base Pneumoperitoneum Subphrenic fluid and fluid subcapsular to the liver, clinical correlation advised Fluid below the right lobe the liver 7.7 x 3.9 cm Diffuse peritoneal enhancement consistent with peritonitis
--- NOTE | 2023-12-28 11:06 | PD.SURPROG ---
Documentation for date of: 12/28/23 Subjective Subjective Narrative: States pain is controlled, denies nausea, remaining afebrile but WBC 38, ileostomy had 700cc/24h Exam Vital Signs Temp Pulse Resp BP Pulse Ox O2 Del Method O2 Flow Rate 97.8 F 82 27 H 149/88 H 94 L Nasal Cannula 1 12/28/23 08:00 12/28/23 08:00 12/28/23 08:00 12/28/23 08:00 12/28/23 08:00 12/28/23 08:00 12/28/23 08:00 FiO2 35 12/26/23 10:05 Constitutional Constitutional: no acute distress Routine Respiratory Exam Respiratory: Present no resp distress Routine Abdominal Exam Abdominal: Present soft, tenderness (mild tenderness), distended (moderate distention), wound (vac in place to midline wound with minimal drainage) and ostomy (ileostomy red with brown liquid stool in appliance) Results Results: Laboratory Laboratory results: results reviewed Assessment & Plan Plan 43M who presented with perforated appendicitis s/p appendectomy with repair of adherent ileum 12/20, course complicated by leakage at site of ileal repair requiring emergent laparotomy and ileostomy creation 12/23, pt now gradually recovering F/u CT AP to eval leukocytosis FLD for now, strict I&O Procedures Procedures Exploratory laparotomy and closure of the distal stump of the ileum and diverting ileostomy and peritoneal lavage.
[2023-12-28] MEDS: oxyCODONE/APAP 5/325 TABLET 1 TAB PO ×2 (11:07→15:55)
[2023-12-28] MEDS: SODIUM CHLORIDE 0.9% 500 ML 500 ML 999 ML IV (11:14)
--- NOTE | 2023-12-28 12:51 | ESPR_ITS ---
Documentation for date of: 12/28/23 Subjective Subjective Interval history: Andrew Pyle is a 43-y/o male no significant PMHx presented on 12/21/2023 with epigastric abdominal pain that migrated to RLQ. CT A/P showed acute appendicitis and underwent laparoscopic appendectomy on 12/20. Found to have gangrenous, perforated appendix with free purulent material in abdomen. Medicine team consulted 12/22 for persistent tachycardia, tachypnea, and oxygen requirement. Repeat CT A/P showed small bowel ileus, pneumoperitoneum, and possible abscess formation. Rapid response called for increased shortness of breath on 12/23 and was taken to the OR same night. Found to have small bowel perforation and free fecal material and now status post ileostomy with wound VAC in place. Transferred to ICU for postsurgical monitoring and downgraded on 12/26. Tolerating liquid diet and will advance per surgery recommendations. 12/27: Patient seen and examined at bedside, no acute overnight events. Blood pressure stable, mildly elevated at 149/88. No fevers overnight. Currently on 1 L nasal cannula saturating 94%. Patient appears fatigued but answering questions appropriately. Tolerating full liquid diet. General surgery ordered repeat CT A/P and gave 500 mL normal saline for ANITHA, which is improved from 2.9 to 2.5. Repeat CXR showed resolution of bibasilar pneumonia but significant air in stomach. Colostomy bag in place with wound VAC draining minimal dark green/brown material. Exam Vital Signs Temp Pulse Resp BP Pulse Ox O2 Del Method O2 Flow Rate 97.8 F 82 27 H 149/88 H 94 L Nasal Cannula 1 12/28/23 08:00 12/28/23 08:00 12/28/23 08:00 12/28/23 08:00 12/28/23 08:00 12/28/23 08:00 12/28/23 08:00 FiO2 35 12/26/23 10:05 Narrative Exam General: AOx3, fatigued, speaking in low-volume voice HEENT: NC/AT, mucous membranes moist, bilateral sclera anicteric Cardiovascular: regular rate and rhythm, S1/S2 present, no murmurs appreciated Pulmonary: clear to auscultation bilaterally, no rales/rhonchi/wheezes Abdominal: Colostomy bag in place, firm, decreased distention from prior; non- tender Musculoskeletal: normal ROM, no peripheral edema Skin: warm and dry, intact, no rashes Neuro: CN II-XII intact, no focal deficits Objective Labs 12/28/23 05:53 12/28/23 05:53 Labs: Laboratory Results - last 24 hr 12/28/23 05:53 WBC 38.7 H* D RBC 3.89 L Hgb 11.0 L Hct 33.4 L MCV 86 MCH 28.3 MCHC 32.9 RDW Std Deviation 50.1 H Plt Count 374 D Neut % (Auto) 86 H Lymph % (Auto) 4 L [place] % (Auto) 6 Eos % (Auto) 0 Baso % (Auto) 0 Neut # (Auto) 33.2 H Lymph # (Auto) 1.4 [place] # (Auto) 2.3 H Eos # (Auto) 0.0 Baso # (Auto) 0.0 Immature Gran # (Auto) 1.67 H Absolute Nucleated RBC 0.04 H Immature Gran % 4 H Nucleated RBC % 0 Smear Path Review Sent to Pathologist Sodium 144 Potassium 3.6 Chloride 110 H Carbon Dioxide 23.1 Anion Gap 11 BUN 46 H Creatinine 2.5 H Estim Creat Clear Calc 39.1 L eGFR 32 L BUN/Creatinine Ratio 18 Glucose 186 H Calculated Osmolality 303 H Calcium 8.2 L Corrected Calcium 8.7 Phosphorus 3.0 Magnesium 2.7 H Total Bilirubin 0.6 AST 35 H ALT 15 Alkaline Phosphatase 112 Total Protein 6.0 Albumin 3.4 L Globulin 2.6 Albumin/Globulin Ratio 1.3 ABG Interpretation ABG results: 12/21/23 12/24/23 12/25/23 15:50 19:45 02:34 ABG pH 7.40 7.23 L D ABG pCO2 40 56 H D ABG pO2 134 H 229 H D ABG HCO3 25 24 ABG O2 Saturation 99 H 100 H ABG Base Excess 0 -5 L VBG pH 7.48 VBG pCO2 35 L VBG pO2 56 VBG Base Excess 2 12/25/23 12/25/23 12/26/23 04:54 10:48 06:56 ABG pH 7.25 L 7.33 L 7.34 L ABG pCO2 52 H 45 43 ABG pO2 93 D 99 95 ABG HCO3 23 23 23 ABG O2 Saturation 97 98 98 ABG Base Excess -5 L -3 -2 VBG pH VBG pCO2 VBG pO2 VBG Base Excess 12/26/23 10:15 ABG pH 7.36 ABG pCO2 41 ABG pO2 87 ABG HCO3 23 ABG O2 Saturation 98 ABG Base Excess -2 VBG pH VBG pCO2 VBG pO2 VBG Base Excess Quality Measures Quality Measures none Assessment & Plan Assessment Current Active Medications: Generic Name Dose Route Start Last Admin Trade Name Freq PRN Reason Stop Dose Admin Acetaminophen 650 mg 12/23/23 08:46 Acetaminophen 325 Mg Tablet PO 01/20/24 23:30 Q6HR PRN FEVER>101.5 Heparin Sodium (Porcine) 5,000 unit 12/27/23 21:00 12/28/23 09:16 Heparin Sod Inj 5000 Unit/Ml Vial SC 01/10/24 20:59 5,000 unit Q12HR TAL Administration Piperacillin Sod/Tazobactam 100 mls @ 25 mls/hr 12/22/23 06:00 12/28/23 05:59 Sod 4.5 gm/ Sodium Chloride IV 12/29/23 05:59 25 mls/hr Q8HR TAL Administration Fluconazole 400 mg in 200 mls @ 100 mls/hr 12/26/23 10:57 12/28/23 09:16 Diflucan/Ns Ivpb IV 12/30/23 10:56 100 mls/hr QDAY TAL Administration Sodium Chloride 1,000 mls @ 75 mls/hr 12/28/23 07:40 12/28/23 09:16 Ns IV 12/28/23 20:59 75 mls/hr .[id number] ONE Administration Melatonin 3 mg 12/28/23 21:00 Melatonin 3 Mg Tablet PO 01/27/24 20:59 HS TAL Ondansetron HCl 4 mg 12/21/23 23:31 12/27/23 21:46 Ondansetron Inj 2 Mg/Ml Inj 2 Ml IV 01/20/24 23:30 4 mg Q4HR PRN Administration NAUSEA OR VOMITING Oxycodone/Acetaminophen 1 tab 12/27/23 13:51 12/28/23 11:07 Oxycodone/Apap 5/325 Tablet PO 01/01/24 13:50 1 tab Q4H PRN Administration PAIN SCALE 4-10(Mod-Sev Pantoprazole Sodium 40 mg 12/26/23 09:00 12/28/23 09:16 Pantoprazole Inj 40 Mg Vial IVP 01/25/24 08:59 40 mg QDAY TAL Administration Protocol Plan Andrew Pyle is a 43-y/o male no significant PMHx presented on 12/21/2023 with epigastric abdominal pain that migrated to RLQ. CT A/P showed acute appendicitis and underwent laparoscopic appendectomy on 12/20. Found to have gangrenous, perforated appendix with free purulent material in abdomen. Medicine team consulted 12/22 for persistent tachycardia, tachypnea, and oxygen requirement. Repeat CT A/P showed small bowel ileus, pneumoperitoneum, and possible abscess formation. Rapid response called for increased shortness of breath on 12/23 and was taken to the OR same night. Found to have small bowel perforation and free fecal material and now status post ileostomy with wound VAC in place. Transferred to ICU for postsurgical monitoring and downgraded on 12/26. Tolerating liquid diet and will advance per surgery recommendations. #Appendicitis, status-post appendectomy 12/20 #Small bowel perforation #Septic shock, resolved #S/p ileostomy 12/23 WBC uptrending from 28.1 -> 38.7. No fevers overnight. Dr. Orantes ordered CT A/P given increase in WBC and 500 mL IVF for ANITHA. -Infectious disease consulted, appreciate recommendations -Fluconazole (12/25-) -Zosyn (12/21-12/28) -HCV pending, HIV 1 and 2 nonreactive -Blood cultures 12/24: No growth to date -Sputum culture 12/24: Mixed oral young -Recommend IV hydration until patient able to fully tolerate meals -Advance diet per surgery -Continue full liquid diet -Wound VAC in place -Follow-up CT A/P #Acute hypoxic respiratory failure, improving #Pneumonia right lung, resolved Extubated and downgraded from ICU on 12/26 -Zosyn for pneumonia and otitis coverage -Incentive spirometry -Wean off oxygen as tolerated #ANITHA, likely secondary to sepsis causing ATN -Continue IV fluids -Strict I/O -Consider consulting nephrology if no improvement in kidney function -Avoid nephrotoxins and renally dose medications #Normocytic anemia Likely in setting of recent surgery and IV hydration. No signs of active bleeding. -Monitor H&H Hospital management: Disposition: 1-2 more hospital night stays Fluids: 1 L normal saline at 75 mL/h Diet: Full liquid diet Lines: Peripheral DVT prophylaxis: Heparin SC GI prophylaxis: Pantoprazole 40 mg IV daily Villarreal: Placed CODE STATUS: full code ----- Plan discussed with attending physician Dr. Ulysses Bryant MD PGY-1 Internal Medicine Attending Provider Attestation/Addendum 44-year-old male patient with peritonitis status post laparoscopic appendectomy with ileocecal perforation. The patient's white count went up to almost 39,000 today. He has been afebrile. He appears weak. He is arousable easily. Denies nausea vomiting. He has no dysuria. Chest x-ray done possible pneumonia right side. CT scan of the abdomen done. See report.. Continue current antibiotic treatment and antifungal coverage. Surgical follow-up. Discussed with housestaff
[2023-12-28] MEDS: hydrALAZINE INJ 20 MG/ML VIAL 10 MG IV (18:08)
[2023-12-28] MEDS: MELATONIN 3 MG TABLET PO (21:12)
[2023-12-29] VITALS (18 sets, daily range): BP systolic 135–159; BP diastolic 79–98; PULSE 58–89; RESP 16–96; TEMP 36.7–38.1; O2SAT 9–97
[2023-12-29] MEDS: ACETAMINOPHEN 325 MG TABLET 650 MG PO (01:13)
[2023-12-29 03:56] LABS: Hepatitis C Antibody Non Reactive (Non React)
[2023-12-29] MEDS: PIPER/TAZO INJ 4.5 GM in SODIUM CHLORIDE 0.9% (P) 100 ML IV (05:47)
[2023-12-29 05:53] LABS: Lactate (Lactic Acid) 1.5 mMol/L (0.4-2.0)
[2023-12-29 06:01] LABS: Basophils % (Auto) 0 % (0-2.5); Eosinophils # (Auto) 0.1 Thou/mm3 (0.0-0.5); Eosinophils % (Auto) 0 % (0-10); Hematocrit 32.2 % (41.0-53.0); Hemoglobin 10.5 g/dL (13.5-16.0); Immature Granulocytes % (Auto) 5 % (0-0); Immature Granulocytes Auto 1.89 Thou/mm3 (0.00-0.00); Lymphocytes % (Auto) 5 % (10-50); Mean Corpuscular HGB Conc 32.6 g/dl (31.0-37.0); Mean Corpuscular Hemoglobin 28.2 pg (25.0-35.0); Mean Corpuscular Volume 87 fL (80-100); Monocytes # (Auto) 2.4 Thou/mm3 (0.0-0.8); Monocytes % (Auto) 6 % (0-12); Neutrophils # (Auto) 34.2 Thou/mm3 (1.8-7.7); Neutrophils % (Auto) 84 % (37-80); Nucleated Red Blood Cell # 0.05 Thou/mm3 (0.00-0.00); Nucleated Red Blood Cell % 0 /100 WBC (0); Platelet Count 416 Thou/mm3 (140-440); RDW Standard Deviation 51.1 fL (35.1-43.9); Red Blood Count 3.72 Miln/mm3 (4.50-5.90)
[2023-12-29 06:11] LABS: White Blood Count 40.7 Thou/mm3 (3.8-10.6)
[2023-12-29 06:18] LABS: Alanine Aminotransferase 18 U/L (10-49); Albumin, Serum 3.1 gm/dL (3.5-5.0); Albumin/Globulin Ratio 1.2 (1.2-2.2); Alkaline Phosphatase 104 U/L (46-116); Anion Gap 10 (7-16); Aspartate Amino Transferase 33 U/L (0-34); BUN/Creatinine Ratio 21 Ratio (12-20); Bilirubin,Total 0.6 mg/dL (0.3-1.2); Blood Urea Nitrogen 49 mg/dL (9-23); Calcium 8.1 mg/dL (8.3-10.6); Calcium (Corrected) 8.8 mg/dL (8.5-10.1); Carbon Dioxide 23.3 mMol/L (20.0-31.0); Chloride 111 mMol/L (98-107); Creatinine (Component) 2.3 mg/dL (0.6-1.3); Estimated Creatinine Clearance 42.4 mL/min (>60); Globulin 2.5 gm/dL (2.3-3.5); Glucose 149 mg/dL (74-106); Osmolality,Calculated 302 (275-295); Potassium 3.6 mMol/L (3.4-5.1); Sodium 144 mMol/L (136-145); Total Protein 5.6 gm/dL (5.7-8.2); eGFR 35 See Note
[2023-12-29] MEDS: HEPARIN SOD INJ 5000 UNIT/ML VIAL SC ×2 (08:43→21:07)
[2023-12-29] MEDS: PANTOPRAZOLE INJ 40 MG VIAL IVP (08:43)
[2023-12-29] MEDS: FLUCONAZOLE/NS 400 MG IVPB 400 MG/200 ML BAG 100 MG IV (08:43)
--- NOTE | 2023-12-29 08:57 | XR_ITS ---
Examination: CT-guided percutaneous catheter drainage right subphrenic abscess CT abdomen without intravenous contrast Date and time of procedure: December 29, 2023 1438 hours Informed consent provided. A timeout was completed verifying correct patient, procedure, site and positioning. Indications: Postop patient with subphrenic and subhepatic abnormal fluid collection Technique: Axial 3 mm sections were obtained for localization of the abdomen Appropriate area is marked. The patient's site was prepped and draped in sterile fashion Maximal sterile barrier technique utilized, including hand hygiene Local anesthesia was obtained with 1% lidocaine. Low dose protocols were performed. One or more of the following dose reduction techniques were used; automated exposure control, adjustment of the mA and/or KV according to patient size, use of iterative reconstruction technique. Utilizing CT fluoroscopic guidance 5 Haitian catheter placed in the subphrenic space on the right 0.35 wire guide is then introduced into the catheter followed by a 6 Haitian pigtail drainage catheter in proper position subphrenic Patient appears in stable condition during this procedure. At completion of the procedure, the patient is in satisfactory condition. Estimated blood loss 2 cc Complete pathology report to follow. Impression: Successful CT-guided placement percutaneous drainage catheter right subphrenic abscess
--- NOTE | 2023-12-29 09:49 | ESPR_ITS ---
Documentation for date of: 12/29/23 Subjective Subjective Interval history: Andrew Pyle is a 43-y/o male no significant PMHx presented on 12/21/2023 with epigastric abdominal pain that migrated to RLQ. CT A/P showed acute appendicitis and underwent laparoscopic appendectomy on 12/20. Found to have gangrenous, perforated appendix with free purulent material in abdomen. Medicine team consulted 12/22 for persistent tachycardia, tachypnea, and oxygen requirement. Repeat CT A/P showed small bowel ileus, pneumoperitoneum, and possible abscess formation. Rapid response called for increased shortness of breath on 12/23 and was taken to the OR same night. Found to have small bowel perforation and free fecal material and now status post ileostomy with wound VAC in place. Transferred to ICU for postsurgical monitoring and downgraded on 12/26. Tolerating liquid diet and will advance per surgery recommendations. 12/27: Patient seen and examined at bedside, no acute overnight events. Blood pressure stable, mildly elevated at 149/88. No fevers overnight. Currently on 1 L nasal cannula saturating 94%. Patient appears fatigued but answering questions appropriately. Tolerating full liquid diet. General surgery ordered repeat CT A/P and gave 500 mL normal saline for ANITHA, which is improved from 2.9 to 2.5. Repeat CXR showed resolution of bibasilar pneumonia but significant air in stomach. Colostomy bag in place with wound VAC draining minimal dark green/brown material. 12/28: No acute overnight events. Spiked fever 100.5 overnight WBC increased from 38 to 40. Denies abdominal pain, nausea, vomiting, chills, sweats, shortness of breath. Currently on room air, improved from yesterday. Wound VAC draining appropriately. General surgery ordered abscess drainage. Infectious disease consulted regarding coverage for ventilation associated pneumonia given that patient was intubated in ICU. Exam Vital Signs Temp Pulse Resp BP Pulse Ox O2 Del Method O2 Flow Rate 98.1 F 80 25 H 152/98 H 92 L Nasal Cannula 2 12/29/23 07:56 12/29/23 07:56 12/29/23 07:56 12/29/23 07:56 12/29/23 07:56 12/29/23 07:56 12/29/23 07:56 FiO2 35 12/29/23 07:56 Narrative Exam General: AOx3, fatigued, speaking in low-volume voice HEENT: NC/AT, mucous membranes moist, bilateral sclera anicteric Cardiovascular: regular rate and rhythm, S1/S2 present, no murmurs appreciated Pulmonary: clear to auscultation bilaterally, no rales/rhonchi/wheezes Abdominal: Colostomy bag in place, firm, decreased distention from prior; non- tender Musculoskeletal: normal ROM, no peripheral edema Skin: warm and dry, intact, no rashes Neuro: CN II-XII intact, no focal deficits Objective Labs 12/30/23 04:32 12/30/23 04:32 Labs: Laboratory Results - last 24 hr 12/27/23 12/29/23 06:00 05:35 WBC 40.7 H* RBC 3.72 L Hgb 10.5 L Hct 32.2 L MCV 87 MCH 28.2 MCHC 32.6 RDW Std Deviation 51.1 H Plt Count 416 D Neut % (Auto) 84 H Lymph % (Auto) 5 L [place] % (Auto) 6 Eos % (Auto) 0 Baso % (Auto) 0 Neut # (Auto) 34.2 H Lymph # (Auto) 2.0 [place] # (Auto) 2.4 H Eos # (Auto) 0.1 Baso # (Auto) 0.0 Immature Gran # (Auto) 1.89 H Absolute Nucleated RBC 0.05 H Immature Gran % 5 H Nucleated RBC % 0 Smear Path Review Cancelled Sodium 144 Potassium 3.6 Chloride 111 H Carbon Dioxide 23.3 Anion Gap 10 BUN 49 H Creatinine 2.3 H Estim Creat Clear Calc 42.4 L eGFR 35 L BUN/Creatinine Ratio 21 H Glucose 149 H Calculated Osmolality 302 H Lactic Acid 1.5 Calcium 8.1 L Corrected Calcium 8.8 Total Bilirubin 0.6 AST 33 ALT 18 Alkaline Phosphatase 104 Total Protein 5.6 L Albumin 3.1 L Globulin 2.5 Albumin/Globulin Ratio 1.2 Hepatitis C Antibody Non Reactive ABG Interpretation ABG results: 12/21/23 12/24/23 12/25/23 15:50 19:45 02:34 ABG pH 7.40 7.23 L D ABG pCO2 40 56 H D ABG pO2 134 H 229 H D ABG HCO3 25 24 ABG O2 Saturation 99 H 100 H ABG Base Excess 0 -5 L VBG pH 7.48 VBG pCO2 35 L VBG pO2 56 VBG Base Excess 2 12/25/23 12/25/23 12/26/23 04:54 10:48 06:56 ABG pH 7.25 L 7.33 L 7.34 L ABG pCO2 52 H 45 43 ABG pO2 93 D 99 95 ABG HCO3 23 23 23 ABG O2 Saturation 97 98 98 ABG Base Excess -5 L -3 -2 VBG pH VBG pCO2 VBG pO2 VBG Base Excess 12/26/23 10:15 ABG pH 7.36 ABG pCO2 41 ABG pO2 87 ABG HCO3 23 ABG O2 Saturation 98 ABG Base Excess -2 VBG pH VBG pCO2 VBG pO2 VBG Base Excess Quality Measures Quality Measures none Assessment & Plan Assessment Current Active Medications: Generic Name Dose Route Start Last Admin Trade Name Freq PRN Reason Stop Dose Admin Acetaminophen 650 mg 12/23/23 08:46 12/29/23 01:13 Acetaminophen 325 Mg Tablet PO 01/20/24 23:30 650 mg Q6HR PRN Administration FEVER>101.5 Heparin Sodium (Porcine) 5,000 unit 12/27/23 21:00 12/29/23 08:43 Heparin Sod Inj 5000 Unit/Ml Vial SC 01/10/24 20:59 5,000 unit Q12HR TAL Administration Hydralazine HCl 10 mg 12/28/23 18:00 12/28/23 18:08 Hydralazine Inj 20 Mg/Ml Vial IV 01/27/24 17:59 10 mg Q6H PRN Administration SBP >170 Fluconazole 400 mg in 200 mls @ 100 mls/hr 12/26/23 10:57 12/29/23 08:43 Diflucan/Ns Ivpb IV 12/30/23 10:56 100 mls/hr QDAY TAL Administration Melatonin 3 mg 12/28/23 21:00 12/28/23 21:12 Melatonin 3 Mg Tablet PO 01/27/24 20:59 3 mg HS TAL Administration Ondansetron HCl 4 mg 12/21/23 23:31 12/27/23 21:46 Ondansetron Inj 2 Mg/Ml Inj 2 Ml IV 01/20/24 23:30 4 mg Q4HR PRN Administration NAUSEA OR VOMITING Oxycodone/Acetaminophen 1 tab 12/27/23 13:51 12/28/23 15:55 Oxycodone/Apap 5/325 Tablet PO 01/01/24 13:50 1 tab Q4H PRN Administration PAIN SCALE 4-10(Mod-Sev Pantoprazole Sodium 40 mg 12/26/23 09:00 12/29/23 08:43 Pantoprazole Inj 40 Mg Vial IVP 01/25/24 08:59 40 mg QDAY TAL Administration Protocol Plan Andrew Pyle is a 43-y/o male no significant PMHx presented on 12/21/2023 with epigastric abdominal pain that migrated to RLQ. CT A/P showed acute appendicitis and underwent laparoscopic appendectomy on 12/20. Found to have gangrenous, perforated appendix with free purulent material in abdomen. Medicine team consulted 12/22 for persistent tachycardia, tachypnea, and oxygen requirement. Repeat CT A/P showed small bowel ileus, pneumoperitoneum, and possible abscess formation. Rapid response called for increased shortness of breath on 12/23 and was taken to the OR same night. Found to have small bowel perforation and free fecal material and now status post ileostomy with wound VAC in place. Transferred to ICU for postsurgical monitoring and downgraded on 12/26. Tolerating liquid diet and will advance per surgery recommendations. #Appendicitis, status-post appendectomy 12/20 #Small bowel perforation #Septic shock, resolved #S/p ileostomy 12/23 WBC uptrending from 28.1 -> 38.7. No fevers overnight. Dr. Orantes ordered CT A/P given increase in WBC and 500 mL IVF for ANITHA. CT A/P showed significant pneumonia right base, pneumoperitoneum, subphrenic fluid and fluid subcapsular to liver, diffuse peritonitis. HCV nonreactive, HIV nonreactive, sputum culture showed mixed young, blood culture 12/24 NGTD, urine culture 12/24 NGTD. -Infectious disease consulted -Fluconazole (12/25-) -Zosyn 2.25 g q8h (12/21-) -Follow-up abscess drainage -Advance diet per surgery -Continue full liquid diet -Wound VAC in place #Acute hypoxic respiratory failure, improving #Pneumonia right lung, resolved Extubated and downgraded from ICU on 12/26 -Zosyn for pneumonia and otitis coverage -Incentive spirometry -Wean off oxygen as tolerated #Acute kidney injury, improving -Strict I/O -Consider consulting nephrology if no improvement in kidney function -Avoid nephrotoxins and renally dose medications #Hypertension -Hydralazine 10 mg IV as needed #Normocytic anemia Likely in setting of recent surgery and IV hydration. No signs of active bleeding. -Monitor H&H Hospital management: Disposition: 1-2 more hospital night stays Fluids: Not indicated Diet: Full liquid diet Lines: Peripheral DVT prophylaxis: Heparin SC GI prophylaxis: Pantoprazole 40 mg IV daily Villarreal: Placed CODE STATUS: full code ----- Plan discussed with attending physician Dr. Ulysses Bryant MD PGY-1 Internal Medicine Attending Provider Attestation/Addendum 43-year-old male patient status post laparoscopic appendectomy, patient is septic with peritonitis. White count went up to almost 40,000 yesterday patient patient has Zosyn. He is status post percutaneous drain placement. I discussed with and supervised the resident physician who took care of this patient. I agree with the assessment and plan as above.
[2023-12-29] MEDS: oxyCODONE/APAP 5/325 TABLET 1 TAB PO (10:11)
--- NOTE | 2023-12-29 10:40 | ESPR_ITS ---
Subjective Subjective Interval history: events noted. Exam Vital Signs Temp Pulse Resp BP Pulse Ox O2 Del Method O2 Flow Rate 98.1 F 80 25 H 152/98 H 92 L Nasal Cannula 2 12/29/23 07:56 12/29/23 07:56 12/29/23 07:56 12/29/23 07:56 12/29/23 07:56 12/29/23 07:56 12/29/23 07:56 FiO2 35 12/29/23 07:56 Narrative Exam ill appearing. creat noted. not overtly diabetic. cause of dany unknown. no overt obstructive uropathy noted on ct to have fluid drainage procedure performed. empiric abx to continue for now Objective - Internal Medicine Labs 12/29/23 05:35 12/29/23 05:35 Labs: Laboratory Results - last 24 hr 12/27/23 12/29/23 06:00 05:35 WBC 40.7 H* RBC 3.72 L Hgb 10.5 L Hct 32.2 L MCV 87 MCH 28.2 MCHC 32.6 RDW Std Deviation 51.1 H Plt Count 416 D Neut % (Auto) 84 H Lymph % (Auto) 5 L [place] % (Auto) 6 Eos % (Auto) 0 Baso % (Auto) 0 Neut # (Auto) 34.2 H Lymph # (Auto) 2.0 [place] # (Auto) 2.4 H Eos # (Auto) 0.1 Baso # (Auto) 0.0 Immature Gran # (Auto) 1.89 H Absolute Nucleated RBC 0.05 H Immature Gran % 5 H Nucleated RBC % 0 Smear Path Review Cancelled Sodium 144 Potassium 3.6 Chloride 111 H Carbon Dioxide 23.3 Anion Gap 10 BUN 49 H Creatinine 2.3 H Estim Creat Clear Calc 42.4 L eGFR 35 L BUN/Creatinine Ratio 21 H Glucose 149 H Calculated Osmolality 302 H Lactic Acid 1.5 Calcium 8.1 L Corrected Calcium 8.8 Total Bilirubin 0.6 AST 33 ALT 18 Alkaline Phosphatase 104 Total Protein 5.6 L Albumin 3.1 L Globulin 2.5 Albumin/Globulin Ratio 1.2 Hepatitis C Antibody Non Reactive ABG Interpretation ABG results: 12/21/23 12/24/23 12/25/23 15:50 19:45 02:34 ABG pH 7.40 7.23 L D ABG pCO2 40 56 H D ABG pO2 134 H 229 H D ABG HCO3 25 24 ABG O2 Saturation 99 H 100 H ABG Base Excess 0 -5 L VBG pH 7.48 VBG pCO2 35 L VBG pO2 56 VBG Base Excess 2 12/25/23 12/25/23 12/26/23 04:54 10:48 06:56 ABG pH 7.25 L 7.33 L 7.34 L ABG pCO2 52 H 45 43 ABG pO2 93 D 99 95 ABG HCO3 23 23 23 ABG O2 Saturation 97 98 98 ABG Base Excess -5 L -3 -2 VBG pH VBG pCO2 VBG pO2 VBG Base Excess 12/26/23 10:15 ABG pH 7.36 ABG pCO2 41 ABG pO2 87 ABG HCO3 23 ABG O2 Saturation 98 ABG Base Excess -2 VBG pH VBG pCO2 VBG pO2 VBG Base Excess Assessment & Plan A&P Narrative abd perforation possible dm dany/vs ckd ordered some tests for am will see friday. usual rx after perf is 5d, (stopit trial) so will limit rx duration. flucon should work as well as micafungin as no yeast noted so far, but it is traditional to add antifungal to abd rx per surgical plans Time Spent With Patient Time: Total time spent is greater than 50% in coordination of care (as documented) at patient's floor/unit and/or counseling patient:
[2023-12-29] MEDS: MORPHINE SULF INJ 10 MG/ML VIAL 2 MG IVP (11:42)
[2023-12-29] MEDS: PIPER/TAZO 2.25 GM 2.25 GM/50 ML BAG IV ×2 (12:49→21:07)
--- NOTE | 2023-12-29 14:31 | PC.SS ---
Addendum entered by Betina Sarmiento 12/29/23 15:19: SS was informed by Minor SWAIN that wound care nurse informed him that patient will be needing HH due to Ileostomy bag. SS contacted [facility] and informed them to put in a HH order. Patient has no preference in HH agency. Original Note: Rounding note; Pending Surgery Rec's.
--- NOTE | 2023-12-29 15:02 | PC.PT ---
Attempt to see the patient this morning, the wound nurse is changing his dressing. Attempt to see the patient this afternoon at 1500, Patient is at [facility].
--- NOTE | 2023-12-29 15:41 | PC.CC ---
Pt entered into [facility] for HH order
--- NOTE | 2023-12-29 15:55 | PC.NURSE ---
Report given to Jill TURCIOS. Drainage in place. Dressing clean, dry, and intact.
--- NOTE | 2023-12-29 16:45 | PC.NURSE ---
Specimen taken to lab.
--- NOTE | 2023-12-29 18:14 | PD.SURPROG ---
Documentation for date of: 12/29/23 Subjective Subjective Narrative: Had Tmax 100.5 overnight, WBC up to 40, patient denies pain and nausea, reports overall feeling well, had percutaneous drain placed today with serosanguineous drainage and approximately 350 cc of ileostomy output Exam Vital Signs Temp Pulse Resp BP Pulse Ox O2 Del Method O2 Flow Rate 98.7 F 79 18 135/85 H 97 Nasal Cannula 2 12/29/23 16:00 12/29/23 16:00 12/29/23 16:00 12/29/23 16:00 12/29/23 16:00 12/29/23 16:00 12/29/23 16:00 FiO2 35 12/29/23 16:00 Constitutional Constitutional: no acute distress Routine Respiratory Exam Respiratory: Present no resp distress Routine Abdominal Exam Abdominal: Present soft, tenderness (Mild tenderness diffusely), distended (Moderate distention), wound (Midline wound with beefy red granulation tissue) and ostomy (Ileostomy with patchy areas of necrosis, liquid stool in appliance) Results Results: Laboratory Laboratory results: results reviewed Results: Imaging CT scan - abdomen: report reviewed and image reviewed Assessment & Plan Plan 43M who presented with perforated appendicitis s/p appendectomy with repair of adherent ileum 12/20, course complicated by leakage at site of ileal repair requiring emergent laparotomy and ileostomy creation 12/23, pt now gradually recovering with leukocytosis Strict I&O of drain and ileostomy output Encourage physical therapy/out of bed Low fiber diet Trend WBC Procedures Procedures Exploratory laparotomy and closure of the distal stump of the ileum and diverting ileostomy and peritoneal lavage.
[2023-12-29] MEDS: MELATONIN 3 MG TABLET PO (21:07)
[2023-12-30] VITALS (8 sets, daily range): BP systolic 143–176; BP diastolic 86–96; PULSE 69–88; RESP 18–33; TEMP 36.2–37.7; O2SAT 94–97
[2023-12-30] MEDS: hydrALAZINE INJ 20 MG/ML VIAL 10 MG IV (01:03)
[2023-12-30] MEDS: oxyCODONE/APAP 5/325 TABLET 1 TAB PO ×2 (01:04→15:53)
[2023-12-30] MEDS: PIPER/TAZO 2.25 GM 2.25 GM/50 ML BAG IV ×3 (05:35→21:12)
[2023-12-30 05:47] LABS: Basophils # (Auto) 0.1 Thou/mm3 (0.0-0.2); Basophils % (Auto) 0 % (0-2.5); Eosinophils # (Auto) 0.2 Thou/mm3 (0.0-0.5); Eosinophils % (Auto) 1 % (0-10); Hematocrit 31.4 % (41.0-53.0); Hemoglobin 10.2 g/dL (13.5-16.0); Immature Granulocytes % (Auto) 5 % (0-0); Immature Granulocytes Auto 1.54 Thou/mm3 (0.00-0.00); Lymphocytes # (Auto) 2.1 Thou/mm3 (1.0-4.8); Lymphocytes % (Auto) 6 % (10-50); Mean Corpuscular HGB Conc 32.5 g/dl (31.0-37.0); Mean Corpuscular Hemoglobin 28.6 pg (25.0-35.0); Mean Corpuscular Volume 88 fL (80-100); Monocytes # (Auto) 2.3 Thou/mm3 (0.0-0.8); Monocytes % (Auto) 7 % (0-12); Neutrophils # (Auto) 26.6 Thou/mm3 (1.8-7.7); Neutrophils % (Auto) 81 % (37-80); Nucleated Red Blood Cell # 0.04 Thou/mm3 (0.00-0.00); Nucleated Red Blood Cell % 0 /100 WBC (0); Platelet Count 378 Thou/mm3 (140-440); Red Blood Count 3.57 Miln/mm3 (4.50-5.90)
[2023-12-30 06:12] LABS: White Blood Count 32.8 Thou/mm3 (3.8-10.6)
[2023-12-30 06:19] LABS: Alanine Aminotransferase 17 U/L (10-49); Albumin, Serum 3.1 gm/dL (3.5-5.0); Albumin/Globulin Ratio 1.1 (1.2-2.2); Alkaline Phosphatase 119 U/L (46-116); Anion Gap 9 (7-16); Aspartate Amino Transferase 36 U/L (0-34); BUN/Creatinine Ratio 20 Ratio (12-20); Bilirubin,Total 0.5 mg/dL (0.3-1.2); Blood Urea Nitrogen 45 mg/dL (9-23); Calcium 8.5 mg/dL (8.3-10.6); Calcium (Corrected) 9.2 mg/dL (8.5-10.1); Carbon Dioxide 23.6 mMol/L (20.0-31.0); Chloride 107 mMol/L (98-107); Creatinine (Component) 2.2 mg/dL (0.6-1.3); Estimated Creatinine Clearance 44.3 mL/min (>60); Globulin 2.9 gm/dL (2.3-3.5); Glucose 115 mg/dL (74-106); Osmolality,Calculated 291 (275-295); Potassium 3.4 mMol/L (3.4-5.1); Sodium 140 mMol/L (136-145); eGFR 37 See Note
[2023-12-30] MEDS: PANTOPRAZOLE 40 MG TABLET PO (09:11)
[2023-12-30] MEDS: FLUCONAZOLE/NS 400 MG IVPB 400 MG/200 ML BAG 100 MG IV (09:11)
[2023-12-30] MEDS: POTASSIUM CHLORIDE 20 mEq TABCR PO (09:11)
[2023-12-30] MEDS: HEPARIN SOD INJ 5000 UNIT/ML VIAL SC ×2 (09:11→21:12)
--- NOTE | 2023-12-30 11:30 | PD.RESPRO ---
Documentation for date of: 12/30/23 Subjective Subjective Interval history: Andrew Pyle is a 43-y/o male no significant PMHx presented on 12/21/2023 with epigastric abdominal pain that migrated to RLQ. CT A/P showed acute appendicitis and underwent laparoscopic appendectomy on 12/20. Found to have gangrenous, perforated appendix with free purulent material in abdomen. Medicine team consulted 12/22 for persistent tachycardia, tachypnea, and oxygen requirement. Repeat CT A/P showed small bowel ileus, pneumoperitoneum, and possible abscess formation. Rapid response called for increased shortness of breath on 12/23 and was taken to the OR same night. Found to have small bowel perforation and free fecal material and now status post ileostomy with wound VAC in place. Transferred to ICU for postsurgical monitoring and downgraded on 12/26. Tolerating liquid diet and will advance per surgery recommendations. 12/27: Patient seen and examined at bedside, no acute overnight events. Blood pressure stable, mildly elevated at 149/88. No fevers overnight. Currently on 1 L nasal cannula saturating 94%. Patient appears fatigued but answering questions appropriately. Tolerating full liquid diet. General surgery ordered repeat CT A/P and gave 500 mL normal saline for ANITHA, which is improved from 2.9 to 2.5. Repeat CXR showed resolution of bibasilar pneumonia but significant air in stomach. Colostomy bag in place with wound VAC draining minimal dark green/brown material. 12/28: No acute overnight events. Spiked fever 100.5 overnight WBC increased from 38 to 40. Denies abdominal pain, nausea, vomiting, chills, sweats, shortness of breath. Currently on room air, improved from yesterday. Wound VAC draining appropriately. General surgery ordered abscess drainage. Infectious disease consulted regarding coverage for ventilation associated pneumonia given that patient was intubated in ICU. 12/29: No acute overnight events and no fevers overnight. Status post CT-guided wound drainage with placement of percutaneous drainage catheter. WBC down trended from 40 to 32, continues to deny abdominal pain, nausea, vomiting, chills, sweats, shortness of breath. Continues to be on room air and wound VAC draining appropriately. Tolerating regular diet. Exam Vital Signs Temp Pulse Resp BP Pulse Ox O2 Del Method O2 Flow Rate 97.6 F 69 20 154/86 H 97 Nasal Cannula 2.5 12/30/23 08:00 12/30/23 08:00 12/30/23 08:00 12/30/23 08:00 12/30/23 08:00 12/30/23 08:00 12/30/23 08:00 FiO2 35 12/30/23 08:00 Narrative Exam General: AOx3, fatigued, speaking in low-volume voice HEENT: NC/AT, mucous membranes moist, bilateral sclera anicteric Cardiovascular: regular rate and rhythm, S1/S2 present, no murmurs appreciated Pulmonary: clear to auscultation bilaterally, no rales/rhonchi/wheezes Abdominal: Colostomy bag in place, drainage catheter in place; abdomen firm, decreased distention from prior; non-tender Musculoskeletal: normal ROM, no peripheral edema Skin: warm and dry, intact, no rashes Neuro: CN II-XII intact, no focal deficits Objective Labs 12/31/23 05:55 12/31/23 05:55 Labs: Laboratory Results - last 24 hr 12/30/23 04:32 WBC 32.8 H D RBC 3.57 L Hgb 10.2 L Hct 31.4 L MCV 88 MCH 28.6 MCHC 32.5 RDW Std Deviation 52.0 H Plt Count 378 D Neut % (Auto) 81 H Lymph % (Auto) 6 L [place] % (Auto) 7 Eos % (Auto) 1 Baso % (Auto) 0 Neut # (Auto) 26.6 H Lymph # (Auto) 2.1 [place] # (Auto) 2.3 H Eos # (Auto) 0.2 Baso # (Auto) 0.1 Immature Gran # (Auto) 1.54 H Absolute Nucleated RBC 0.04 H Immature Gran % 5 H Nucleated RBC % 0 Sodium 140 Potassium 3.4 Chloride 107 Carbon Dioxide 23.6 Anion Gap 9 BUN 45 H Creatinine 2.2 H Estim Creat Clear Calc 44.3 L eGFR 37 L BUN/Creatinine Ratio 20 Glucose 115 H Calculated Osmolality 291 Calcium 8.5 Corrected Calcium 9.2 Total Bilirubin 0.5 AST 36 H ALT 17 Alkaline Phosphatase 119 H Total Protein 6.0 Albumin 3.1 L Globulin 2.9 Albumin/Globulin Ratio 1.1 L ABG Interpretation ABG results: 12/21/23 12/24/23 12/25/23 15:50 19:45 02:34 ABG pH 7.40 7.23 L D ABG pCO2 40 56 H D ABG pO2 134 H 229 H D ABG HCO3 25 24 ABG O2 Saturation 99 H 100 H ABG Base Excess 0 -5 L VBG pH 7.48 VBG pCO2 35 L VBG pO2 56 VBG Base Excess 2 12/25/23 12/25/23 12/26/23 04:54 10:48 06:56 ABG pH 7.25 L 7.33 L 7.34 L ABG pCO2 52 H 45 43 ABG pO2 93 D 99 95 ABG HCO3 23 23 23 ABG O2 Saturation 97 98 98 ABG Base Excess -5 L -3 -2 VBG pH VBG pCO2 VBG pO2 VBG Base Excess 12/26/23 10:15 ABG pH 7.36 ABG pCO2 41 ABG pO2 87 ABG HCO3 23 ABG O2 Saturation 98 ABG Base Excess -2 VBG pH VBG pCO2 VBG pO2 VBG Base Excess Quality Measures Quality Measures none Assessment & Plan Assessment Current Active Medications: Generic Name Dose Route Start Last Admin Trade Name Freq PRN Reason Stop Dose Admin Acetaminophen 650 mg 12/23/23 08:46 12/29/23 01:13 Acetaminophen 325 Mg Tablet PO 01/20/24 23:30 650 mg Q6HR PRN Administration FEVER>101.5 Heparin Sodium (Porcine) 5,000 unit 12/27/23 21:00 12/30/23 09:11 Heparin Sod Inj 5000 Unit/Ml Vial SC 01/10/24 20:59 5,000 unit Q12HR TAL Administration Hydralazine HCl 10 mg 12/28/23 18:00 12/30/23 01:03 Hydralazine Inj 20 Mg/Ml Vial IV 01/27/24 17:59 10 mg Q6H PRN Administration SBP >170 Piperacillin/Tazobactam/Dextrose 2.25 gm in 50 mls @ 12.5 mls/hr 12/29/23 11:00 12/30/23 05:35 Zosyn IV 01/05/24 10:59 12.5 mls/hr Q8HR TAL Administration Fluconazole 400 mg in 200 mls @ 100 mls/hr 12/30/23 09:00 12/30/23 09:11 Diflucan/Ns Ivpb IV 01/06/24 08:59 100 mls/hr QDAY TAL Administration Melatonin 3 mg 12/28/23 21:00 12/29/23 21:07 Melatonin 3 Mg Tablet PO 01/27/24 20:59 3 mg HS TAL Administration Morphine Sulfate 2 mg 12/29/23 11:23 12/29/23 11:42 Morphine Sulf Inj 10 Mg/Ml Vial IVP 01/03/24 11:22 2 mg Q6HR PRN Administration PAIN SCALE 7-10 Ondansetron HCl 4 mg 12/21/23 23:31 12/27/23 21:46 Ondansetron Inj 2 Mg/Ml Inj 2 Ml IV 01/20/24 23:30 4 mg Q4HR PRN Administration NAUSEA OR VOMITING Oxycodone/Acetaminophen 1 tab 12/29/23 11:26 12/30/23 01:04 Oxycodone/Apap 5/325 Tablet PO 01/01/24 13:50 1 tab Q4H PRN Administration PAIN SCALE 4-6 Pantoprazole Sodium 40 mg 12/30/23 09:00 12/30/23 09:11 Pantoprazole 40 Mg Tablet PO 01/29/24 08:59 40 mg QDAY TAL Administration Protocol Plan Andrew Pyle is a 43-y/o male no significant PMHx presented on 12/21/2023 with epigastric abdominal pain that migrated to RLQ. CT A/P showed acute appendicitis and underwent laparoscopic appendectomy on 12/20. Found to have gangrenous, perforated appendix with free purulent material in abdomen. Medicine team consulted 12/22 for persistent tachycardia, tachypnea, and oxygen requirement. Repeat CT A/P showed small bowel ileus, pneumoperitoneum, and possible abscess formation. Rapid response called for increased shortness of breath on 12/23 and was taken to the OR same night. Found to have small bowel perforation and free fecal material and now status post ileostomy with wound VAC in place. Transferred to ICU for postsurgical monitoring and downgraded on 12/26. Tolerating liquid diet and will advance per surgery recommendations. #Appendicitis, status-post appendectomy 12/20 #Small bowel perforation #Septic shock, resolved #S/p ileostomy 12/23 CT A/P: significant PNA right base, pneumoperitoneum, fluid subcapsular to liver, diffuse peritonitis. HCV and HIV nonreactive, sputum culture: mixed young, blood cx 12/24 NGTD, urine cx 12/[address] Status post [address]-guided percutaneous drainage catheter right subphrenic abscess 12/28 -> WBC now downtrending from 40 to 32. No fevers overnight. -Infectious disease consulted -Fluconazole (12/25-) -Zosyn 2.25 g q8h (12/28-) -Advance diet per surgery -Low residue diet -DC Villarreal -Encourage incentive spirometer, physical therapy, out of bed as tolerated -Wound VAC in place -Percutaneous drainage catheter in place #Acute hypoxic respiratory failure, improving #Pneumonia right lung, resolved Extubated and downgraded from ICU on 12/26 -Zosyn for pneumonia and otitis coverage -Incentive spirometry -Wean off oxygen as tolerated #Acute kidney injury, improving -Strict I/O -Consider consulting nephrology if no improvement in kidney function -Avoid nephrotoxins and renally dose medications #Hypertension -Hydralazine 10 mg IV as needed #Normocytic anemia Likely in setting of recent surgery and IV hydration. No signs of active bleeding. -Monitor H&H Hospital management: Disposition: 1-2 more hospital night stays Fluids: Not indicated Diet: Low residue diet Lines: Peripheral, percutaneous drainage catheter, wound VAC DVT prophylaxis: Heparin SC GI prophylaxis: Pantoprazole 40 mg IV daily Villarreal: Placed CODE STATUS: full code ----- Plan discussed with attending physician Dr. Ulysses Bryant MD PGY-1 Internal Medicine Attending Provider Attestation/Addendum Clinically improved. Continue Zosyn at lower dose per ID. Patient is tolerating p.o. intake. Denies worsening abdominal pain. I discussed with and supervised the resident physician who took care of this patient. I agree with the assessment and plan as above.
--- NOTE | 2023-12-30 12:17 | PD.SURPROG ---
Documentation for date of: 12/30/23 Subjective Subjective Narrative: Pain controlled, Tmax 100.4 at noon yesterday, WBC down trended to 32, no nausea, tolerating regular diet, worked with physical therapy, ileostomy for 40 cc in 24 hours, percutaneous drain 155 cc in 24 hours Exam Vital Signs Temp Pulse Resp BP Pulse Ox O2 Del Method O2 Flow Rate 97.6 F 69 20 154/86 H 97 Nasal Cannula 2.5 12/30/23 08:00 12/30/23 08:00 12/30/23 08:00 12/30/23 08:00 12/30/23 08:00 12/30/23 08:00 12/30/23 08:00 FiO2 35 12/30/23 08:00 Constitutional Constitutional: no acute distress Routine Respiratory Exam Respiratory: Present no resp distress Routine Abdominal Exam Abdominal: Present soft, distended (Mild distention), wound (Midline wound with VAC in place set at 75 mmHg, no drainage) and ostomy (Red with liquid stool in appliance); Absent tenderness Results Results: Laboratory Laboratory results: results reviewed Assessment & Plan Plan 43M who presented with perforated appendicitis s/p appendectomy with repair of adherent ileum 12/20, course complicated by leakage at site of ileal repair requiring emergent laparotomy and ileostomy creation 12/23, pt now gradually recovering with leukocytosis Strict I&O Low residue diet DC Villarreal Encourage incentive spirometer/physical therapy/out of bed Procedures Procedures Exploratory laparotomy and closure of the distal stump of the ileum and diverting ileostomy and peritoneal lavage.
--- NOTE | 2023-12-30 13:40 | PC.NURSE ---
Dr. Arsalan Bryant made aware of patients report of anxiety; per Dr. Arsalan Bryant he will discuss with care team need for anxiety relieving medication. Per patient anxiety is increased at night when his family is not present. Spoke with primer chargerTuan regarding increased anxiety and request for family to be present at night. Family made aware they may stay to assist with patient care and alleviate patients anxiety.
--- NOTE | 2023-12-30 14:27 | PC.SS ---
Rounding note; SS followed up with patient in regards to discharge plan, patient reports he does not want SNF and is open to HH, he does not have a preference in a HH agency.
[2023-12-30] MEDS: LORazepam 0.5 MG TABLET 1 MG PO ×2 (15:01→15:02)
[2023-12-30] MEDS: MELATONIN 3 MG TABLET PO (21:12)
[2023-12-31] VITALS (8 sets, daily range): BP systolic 146–158; BP diastolic 89–97; PULSE 78–90; RESP 18–32; TEMP 36.5–37.7; O2SAT 90–99; BMI 36.7
[2023-12-31] MEDS: PIPER/TAZO 2.25 GM 2.25 GM/50 ML BAG IV ×3 (05:11→21:10)
[2023-12-31 06:06] LABS: Basophils # (Auto) 0.1 Thou/mm3 (0.0-0.2); Basophils % (Auto) 0 % (0-2.5); Eosinophils # (Auto) 0.2 Thou/mm3 (0.0-0.5); Eosinophils % (Auto) 1 % (0-10); Hematocrit 29.4 % (41.0-53.0); Hemoglobin 9.7 g/dL (13.5-16.0); Immature Granulocytes % (Auto) 5 % (0-0); Immature Granulocytes Auto 1.32 Thou/mm3 (0.00-0.00); Lymphocytes # (Auto) 1.6 Thou/mm3 (1.0-4.8); Lymphocytes % (Auto) 6 % (10-50); Mean Corpuscular Hemoglobin 27.9 pg (25.0-35.0); Mean Corpuscular Volume 85 fL (80-100); Monocytes # (Auto) 1.9 Thou/mm3 (0.0-0.8); Monocytes % (Auto) 7 % (0-12); Neutrophils # (Auto) 21.3 Thou/mm3 (1.8-7.7); Neutrophils % (Auto) 81 % (37-80); Nucleated Red Blood Cell % 0 /100 WBC (0); Platelet Count 414 Thou/mm3 (140-440); RDW Standard Deviation 47.3 fL (35.1-43.9); Red Blood Count 3.48 Miln/mm3 (4.50-5.90)
[2023-12-31 06:07] LABS: White Blood Count 26.3 Thou/mm3 (3.8-10.6)
[2023-12-31 06:41] LABS: Alanine Aminotransferase 16 U/L (10-49); Albumin, Serum 2.9 gm/dL (3.5-5.0); Albumin/Globulin Ratio 0.9 (1.2-2.2); Alkaline Phosphatase 100 U/L (46-116); Anion Gap 10 (7-16); Aspartate Amino Transferase 35 U/L (0-34); BUN/Creatinine Ratio 22 Ratio (12-20); Bilirubin,Total 0.5 mg/dL (0.3-1.2); Blood Urea Nitrogen 39 mg/dL (9-23); Calcium 8.1 mg/dL (8.3-10.6); Carbon Dioxide 22.2 mMol/L (20.0-31.0); Chloride 105 mMol/L (98-107); Creatinine (Component) 1.8 mg/dL (0.6-1.3); Estimated Creatinine Clearance 56.4 mL/min (>60); Globulin 3.2 gm/dL (2.3-3.5); Glucose 133 mg/dL (74-106); Osmolality,Calculated 285 (275-295); Potassium 3.2 mMol/L (3.4-5.1); Sodium 137 mMol/L (136-145); Total Protein 6.1 gm/dL (5.7-8.2); eGFR 48 See Note
--- NOTE | 2023-12-31 09:30 | PC.SS ---
Follow up note: Pt is on IV antibiotic, IV pain meds, and surgery is consulting. Pt will return home with Home Health.
[2023-12-31] MEDS: PANTOPRAZOLE 40 MG TABLET PO (10:09)
[2023-12-31] MEDS: POTASSIUM CHLORIDE 20 mEq TABCR 40 MEQ PO (10:09)
[2023-12-31] MEDS: HEPARIN SOD INJ 5000 UNIT/ML VIAL SC ×2 (10:10→21:10)
[2023-12-31] MEDS: FLUCONAZOLE/NS 400 MG IVPB 400 MG/200 ML BAG 100 MG IV (10:10)
[2023-12-31 10:52] LABS: Band Neutrophils (Manual) 24 % (0-6); Lymphocytes (Manual) 10 % (20-44); Metamyelocytes (Manual) 1 % (0-0); Monocytes (Manual) 4 % (2-9); Neutrophils (Manual) 61 % (50-70)
[2023-12-31] MEDS: MORPHINE SULF INJ 10 MG/ML VIAL 2 MG IVP (11:21)
--- NOTE | 2023-12-31 11:43 | ESPR_ITS ---
Documentation for date of: 12/31/23 Subjective Subjective Interval history: Andrew Pyle is a 43-y/o male no significant PMHx presented on 12/21/2023 with epigastric abdominal pain that migrated to RLQ. CT A/P showed acute appendicitis and underwent laparoscopic appendectomy on 12/20. Found to have gangrenous, perforated appendix with free purulent material in abdomen. Medicine team consulted 12/22 for persistent tachycardia, tachypnea, and oxygen requirement. Repeat CT A/P showed small bowel ileus, pneumoperitoneum, and possible abscess formation. Rapid response called for increased shortness of breath on 12/23 and was taken to the OR same night. Found to have small bowel perforation and free fecal material and now status post ileostomy with wound VAC in place. Transferred to ICU for postsurgical monitoring and downgraded on 12/26. Tolerating liquid diet and will advance per surgery recommendations. 12/27: Patient seen and examined at bedside, no acute overnight events. Blood pressure stable, mildly elevated at 149/88. No fevers overnight. Currently on 1 L nasal cannula saturating 94%. Patient appears fatigued but answering questions appropriately. Tolerating full liquid diet. General surgery ordered repeat CT A/P and gave 500 mL normal saline for ANITHA, which is improved from 2.9 to 2.5. Repeat CXR showed resolution of bibasilar pneumonia but significant air in stomach. Colostomy bag in place with wound VAC draining minimal dark green/brown material. 12/28: No acute overnight events. Spiked fever 100.5 overnight WBC increased from 38 to 40. Denies abdominal pain, nausea, vomiting, chills, sweats, shortness of breath. Currently on room air, improved from yesterday. Wound VAC draining appropriately. General surgery ordered abscess drainage. Infectious disease consulted regarding coverage for ventilation associated pneumonia given that patient was intubated in ICU. 12/29: No acute overnight events and no fevers overnight. Status post CT-guided wound drainage with placement of percutaneous drainage catheter. WBC down trended from 40 to 32, continues to deny abdominal pain, nausea, vomiting, chills, sweats, shortness of breath. Continues to be on room air and wound VAC draining appropriately. Tolerating regular diet. 12/30: No acute overnight events. No spiked fevers. Goes back and forth between requiring oxygen and room air. WBC continues to downtrend from 32.8 to 26.3. Patient encouraged to get out of bed and work with physical therapy as tolerated. Exam Vital Signs Temp Pulse Resp BP Pulse Ox O2 Del Method O2 Flow Rate 97.7 F 78 30 H 150/89 H 96 Nasal Cannula 3 12/31/23 08:00 12/31/23 08:00 12/31/23 08:00 12/31/23 08:00 12/31/23 08:00 12/31/23 08:00 12/31/23 08:00 FiO2 35 12/30/23 16:00 Narrative Exam General: AOx3, fatigued, speaking in low-volume voice HEENT: NC/AT, mucous membranes moist, bilateral sclera anicteric Cardiovascular: regular rate and rhythm, S1/S2 present, no murmurs appreciated Pulmonary: Shallow breaths, clear to auscultation bilaterally, no rales/rhonchi/wheezes Abdominal: Colostomy bag in place, drainage catheter in place; abdomen firm, decreased distention from prior; non-tender Musculoskeletal: normal ROM, no peripheral edema Skin: warm and dry, intact, no rashes Neuro: CN II-XII intact, no focal deficits Objective Labs 01/01/24 05:37 01/01/24 05:37 Labs: Laboratory Results - last 24 hr 12/31/23 05:55 WBC 26.3 H D RBC 3.48 L Hgb 9.7 L Hct 29.4 L MCV 85 MCH 27.9 MCHC 33.0 RDW Std Deviation 47.3 H Plt Count 414 D Neut % (Auto) 81 H Lymph % (Auto) 6 L [place] % (Auto) 7 Eos % (Auto) 1 Baso % (Auto) 0 Neut # (Auto) 21.3 H Lymph # (Auto) 1.6 [place] # (Auto) 1.9 H Eos # (Auto) 0.2 Baso # (Auto) 0.1 Immature Gran # (Auto) 1.32 H Absolute Nucleated RBC 0.00 Immature Gran % 5 H Neutrophils % (Manual) 61 Monocytes % (Manual) 4 Metamyelocytes % 1 H Nucleated RBC % 0 Band Neutrophils 24 H Lymphocytes (Manual) 10 L Sodium 137 Potassium 3.2 L Chloride 105 Carbon Dioxide 22.2 Anion Gap 10 BUN 39 H Creatinine 1.8 H Estim Creat Clear Calc 56.4 L eGFR 48 L BUN/Creatinine Ratio 22 H Glucose 133 H Calculated Osmolality 285 Calcium 8.1 L Corrected Calcium 9.0 Total Bilirubin 0.5 AST 35 H ALT 16 Alkaline Phosphatase 100 Total Protein 6.1 Albumin 2.9 L Globulin 3.2 Albumin/Globulin Ratio 0.9 L ABG Interpretation ABG results: 12/21/23 12/24/23 12/25/23 15:50 19:45 02:34 ABG pH 7.40 7.23 L D ABG pCO2 40 56 H D ABG pO2 134 H 229 H D ABG HCO3 25 24 ABG O2 Saturation 99 H 100 H ABG Base Excess 0 -5 L VBG pH 7.48 VBG pCO2 35 L VBG pO2 56 VBG Base Excess 2 12/25/23 12/25/23 12/26/23 04:54 10:48 06:56 ABG pH 7.25 L 7.33 L 7.34 L ABG pCO2 52 H 45 43 ABG pO2 93 D 99 95 ABG HCO3 23 23 23 ABG O2 Saturation 97 98 98 ABG Base Excess -5 L -3 -2 VBG pH VBG pCO2 VBG pO2 VBG Base Excess 12/26/23 10:15 ABG pH 7.36 ABG pCO2 41 ABG pO2 87 ABG HCO3 23 ABG O2 Saturation 98 ABG Base Excess -2 VBG pH VBG pCO2 VBG pO2 VBG Base Excess Quality Measures Quality Measures none Assessment & Plan Assessment Current Active Medications: Generic Name Dose Route Start Last Admin Trade Name Freq PRN Reason Stop Dose Admin Acetaminophen 650 mg 12/23/23 08:46 12/29/23 01:13 Acetaminophen 325 Mg Tablet PO 01/20/24 23:30 650 mg Q6HR PRN Administration FEVER>101.5 Heparin Sodium (Porcine) 5,000 unit 12/27/23 21:00 12/31/23 10:10 Heparin Sod Inj 5000 Unit/Ml Vial SC 01/10/24 20:59 5,000 unit Q12HR TAL Administration Hydralazine HCl 10 mg 12/28/23 18:00 12/30/23 01:03 Hydralazine Inj 20 Mg/Ml Vial IV 01/27/24 17:59 10 mg Q6H PRN Administration SBP >170 Piperacillin/Tazobactam/Dextrose 2.25 gm in 50 mls @ 12.5 mls/hr 12/29/23 11:00 12/31/23 05:11 Zosyn IV 01/05/24 10:59 12.5 mls/hr Q8HR TAL Administration Fluconazole 400 mg in 200 mls @ 100 mls/hr 12/30/23 09:00 12/31/23 10:10 Diflucan/Ns Ivpb IV 01/06/24 08:59 100 mls/hr QDAY TAL Administration Lorazepam 1 mg 12/30/23 13:44 12/30/23 15:02 Lorazepam 0.5 Mg Tablet PO 01/04/24 13:43 1 mg X1 PRN Administration ANXIETY Melatonin 3 mg 12/28/23 21:00 12/30/23 21:12 Melatonin 3 Mg Tablet PO 01/27/24 20:59 3 mg HS TAL Administration Morphine Sulfate 2 mg 12/29/23 11:23 12/31/23 11:21 Morphine Sulf Inj 10 Mg/Ml Vial IVP 01/03/24 11:22 2 mg Q6HR PRN Administration PAIN SCALE 7-10 Ondansetron HCl 4 mg 12/21/23 23:31 12/27/23 21:46 Ondansetron Inj 2 Mg/Ml Inj 2 Ml IV 01/20/24 23:30 4 mg Q4HR PRN Administration NAUSEA OR VOMITING Oxycodone/Acetaminophen 1 tab 12/29/23 11:26 12/30/23 15:53 Oxycodone/Apap 5/325 Tablet PO 01/01/24 13:50 1 tab Q4H PRN Administration PAIN SCALE 4-6 Pantoprazole Sodium 40 mg 12/30/23 09:00 12/31/23 10:09 Pantoprazole 40 Mg Tablet PO 01/29/24 08:59 40 mg QDAY TAL Administration Protocol Plan Andrew Pyle is a 43-y/o male no significant PMHx presented on 12/21/2023 with epigastric abdominal pain that migrated to RLQ. CT A/P showed acute appendicitis and underwent laparoscopic appendectomy on 12/20. Found to have gangrenous, perforated appendix with free purulent material in abdomen. Medicine team consulted 12/22 for persistent tachycardia, tachypnea, and oxygen requirement. Repeat CT A/P showed small bowel ileus, pneumoperitoneum, and possible abscess formation. Rapid response called for increased shortness of breath on 12/23 and was taken to the OR same night. Found to have small bowel perforation and free fecal material and now status post ileostomy with wound VAC in place. Transferred to ICU for postsurgical monitoring and downgraded on 12/26. Tolerating liquid diet and will advance per surgery recommendations. #Appendicitis, status-post appendectomy 12/20 #Small bowel perforation #Septic shock, resolved #S/p ileostomy 12/23 CT A/P: significant PNA right base, pneumoperitoneum, fluid subcapsular to liver, diffuse peritonitis. HCV and HIV nonreactive, sputum culture: mixed young, blood cx 12/24 NGTD, urine cx 12/[address] Status post [address]-guided percutaneous drainage catheter right subphrenic abscess 12/28 -> WBC now downtrending from 40 to 32. No fevers overnight. Per PT, requires assistance moving bilateral lower extremities towards edge of bed due to muscle weakness. Recommends rehab placement for skilled therapy services. -Infectious disease consulted -Fluconazole (12/25-) -Zosyn 2.25 g q8h (12/28-) -Advance diet per surgery -Low residue diet -DC Villarreal -Encourage incentive spirometer, physical therapy, out of bed as tolerated -Wound VAC in place -Percutaneous drainage catheter in place #Acute hypoxic respiratory failure, improving #Pneumonia right lung, resolved Extubated and downgraded from ICU on 12/26 -Zosyn for pneumonia and otitis coverage -Incentive spirometry -Wean off oxygen as tolerated #Acute kidney injury, improving -Strict I/O -Consider consulting nephrology if no improvement in kidney function -Avoid nephrotoxins and renally dose medications #Hypertension -Hydralazine 10 mg IV as needed #Normocytic anemia Likely in setting of recent surgery and IV hydration. No signs of active bleeding. -Monitor H&H Hospital management: Disposition: 1-2 more hospital night stays Fluids: Not indicated Diet: Low residue diet Lines: Peripheral, percutaneous drainage catheter, wound VAC DVT prophylaxis: Heparin SC GI prophylaxis: Pantoprazole 40 mg IV daily Villarreal: Placed CODE STATUS: full code ----- Plan discussed with attending physician Dr. Ulysses Bryant MD PGY-1 Internal Medicine Attending Provider Attestation/Addendum Patient seen and examined. He has minimal tachypnea today. He denies abdominal pain or nausea or vomiting. Tolerating p.o. intake. Continue current antibiotic treatment and Diflucan. Discussed with housestaff.
--- NOTE | 2023-12-31 12:54 | PC.WOUND ---
Ileostomy care/teaching started with at bedside. Agreeable to participating in care. Staff to include pt/ in care of stoma. Enrolled pt in [employer] for help with ostomy supplies and post acute care
--- NOTE | 2023-12-31 14:16 | ESPR_ITS ---
Subjective Subjective Interval history: cx neg. ckd improved with drainage of collection. cx neg. stains neg Exam Vital Signs Temp Pulse Resp BP Pulse Ox O2 Del Method O2 Flow Rate 97.7 F 78 30 H 150/89 H 96 Nasal Cannula 3 12/31/23 08:00 12/31/23 08:00 12/31/23 08:00 12/31/23 08:00 12/31/23 08:00 12/31/23 08:00 12/31/23 08:00 FiO2 35 12/30/23 16:00 Narrative Exam low grades noted. cx neg. wbc improved with drainage. abx remain empirical and adjusted for ckd Objective - Internal Medicine Labs 12/31/23 05:55 12/31/23 05:55 Labs: Laboratory Results - last 24 hr 12/31/23 05:55 WBC 26.3 H D RBC 3.48 L Hgb 9.7 L Hct 29.4 L MCV 85 MCH 27.9 MCHC 33.0 RDW Std Deviation 47.3 H Plt Count 414 D Neut % (Auto) 81 H Lymph % (Auto) 6 L [place] % (Auto) 7 Eos % (Auto) 1 Baso % (Auto) 0 Neut # (Auto) 21.3 H Lymph # (Auto) 1.6 [place] # (Auto) 1.9 H Eos # (Auto) 0.2 Baso # (Auto) 0.1 Immature Gran # (Auto) 1.32 H Absolute Nucleated RBC 0.00 Immature Gran % 5 H Neutrophils % (Manual) 61 Monocytes % (Manual) 4 Metamyelocytes % 1 H Nucleated RBC % 0 Band Neutrophils 24 H Lymphocytes (Manual) 10 L Sodium 137 Potassium 3.2 L Chloride 105 Carbon Dioxide 22.2 Anion Gap 10 BUN 39 H Creatinine 1.8 H Estim Creat Clear Calc 56.4 L eGFR 48 L BUN/Creatinine Ratio 22 H Glucose 133 H Calculated Osmolality 285 Calcium 8.1 L Corrected Calcium 9.0 Total Bilirubin 0.5 AST 35 H ALT 16 Alkaline Phosphatase 100 Total Protein 6.1 Albumin 2.9 L Globulin 3.2 Albumin/Globulin Ratio 0.9 L ABG Interpretation ABG results: 12/21/23 12/24/23 12/25/23 15:50 19:45 02:34 ABG pH 7.40 7.23 L D ABG pCO2 40 56 H D ABG pO2 134 H 229 H D ABG HCO3 25 24 ABG O2 Saturation 99 H 100 H ABG Base Excess 0 -5 L VBG pH 7.48 VBG pCO2 35 L VBG pO2 56 VBG Base Excess 2 12/25/23 12/25/23 12/26/23 04:54 10:48 06:56 ABG pH 7.25 L 7.33 L 7.34 L ABG pCO2 52 H 45 43 ABG pO2 93 D 99 95 ABG HCO3 23 23 23 ABG O2 Saturation 97 98 98 ABG Base Excess -5 L -3 -2 VBG pH VBG pCO2 VBG pO2 VBG Base Excess 12/26/23 10:15 ABG pH 7.36 ABG pCO2 41 ABG pO2 87 ABG HCO3 23 ABG O2 Saturation 98 ABG Base Excess -2 VBG pH VBG pCO2 VBG pO2 VBG Base Excess Assessment & Plan A&P Narrative abd perforation dm II ckd ordered some tests for am will see again on friday. we have exceeded the usual rx regimen and no abscess was found. hope he continues to improve on empiric rx. . it is traditional to add antifungal to abd rx per surgical plans Time Spent With Patient Time: Total time spent is greater than 50% in coordination of care (as documented) at patient's floor/unit and/or counseling patient:
--- NOTE | 2023-12-31 14:33 | PD.ADDPROG ---
Addendum Progress Note Addendum Date of report being addended: 12/31/23 Narrative: pt not showering. has ostomy rlq and reports some pain with abd exam. remains sl distended, imaging reports noted will check in again friday
--- NOTE | 2023-12-31 18:04 | PD.SURPROG ---
Documentation for date of: 12/31/23 Subjective Subjective Brief History: As above Narrative: The patient was seen by me today following few days when I was absent and Dr. Muniz was covering for me. Patient seems to be feeling better compared to last week. However his breathing is poor and fast Exam Vital Signs Temp Pulse Resp BP Pulse Ox O2 Del Method O2 Flow Rate 99.8 F 82 32 H 151/94 H 96 Nasal Cannula 1 12/31/23 16:00 12/31/23 16:00 12/31/23 16:00 12/31/23 16:00 12/31/23 16:00 12/31/23 16:00 12/31/23 16:00 FiO2 35 12/30/23 16:00 His vital signs showed normal pulse rate but the respiratory rate of around 30 to Routine Abdominal Exam Comments: Abdomen showed distention but the patient does not have much pain Results Results: Laboratory Laboratory Narrative: Laboratory results show decreasing WBC but it is still significantly elevated Results: Imaging Additional studies: CT of the abdomen done yesterday showed still persistent dilatation of the stomach. Assessment & Plan Assessment Additional comments: Impression: Slow but steady recovery from the exploratory laparotomy Tachypnea Plan Plan: We shall decompress the stomach with an NG tube We will start him on TPN because he is not eating enough. This was explained to the patient. Procedures Procedures Exploratory laparotomy and closure of the distal stump of the ileum and diverting ileostomy and peritoneal lavage.
--- NOTE | 2023-12-31 18:31 | XR_ITS ---
Examination: Abdomen 2 views Technique: AP upright AP supine abdomen 2 views Exam date and time: December 31, 2023 1842 hrs. Indications: Abdominal distention, orogastric tube placement Findings: Orogastric tube projects distal stomach Abundant stool throughout the colon No free air Impression: Orogastric tube projects distal stomach
[2023-12-31] MEDS: BENZOCAINE 20% (Hurricaine) SPRAY 1 DOSE TOP ×2 (19:33)
[2023-12-31] MEDS: MELATONIN 3 MG TABLET PO (21:10)
[2023-12-31] MEDS: LIDOCAINE VISCOUS 2% 15 ML UDC PO (21:10)
[2024-01-01] VITALS (26 sets, daily range): BP systolic 136–162; BP diastolic 77–99; PULSE 78–111; RESP 14–30; TEMP 36.2–37.3; O2SAT 95–100; BMI 36.7
--- NOTE | 2024-01-01 | XR_ITS ---
Examination: Central line placement, triple lumen catheter. Ultrasound-guided needle placement right internal jugular vein. Fluoroscopy AP Chest, portable single view Exam date and time: January 01, 2024 1125 hours INDICATIONS: Need for long-term intravenous TPN. Informed consent provided Technique: A timeout was completed, verifying correct patient, procedure, site, positioning, and special equipment if applicable The patient was placed in a dependent position appropriate for central line placement based on the vein to be cannulated. The patient's right neck was prepped and draped in sterile fashion. Maximum Sterile Barrier Technique used including cap, mask, sterile gown, sterile gloves, and sterile full body drape. If ultrasound technique used: sterile gel and sterile probe covers. Hand Hygiene performed site right portable apparatus utilized to confirm patency of the right internal jugular vein Utilizing ultrasonographic guidance successful 21-gauge needle puncture into the right internal jugular vein. Ultrasound images were recorded and stored. Successful micropuncture with a 21-gauge needle was performed. 0.18 wire guide was introduced into the IVC under fluoroscopic guidance. The wires is then exchanged for a 0.25 J-wire guide placed in the vena cava. The triple lumen catheter dilator is introduced, followed by the catheter in the SVC in proper position under fluoroscopic guidance. Successful aspiration of blood and flushing with heparinized saline is then performed in the 3 venous limbs. The catheter is sutured in place to the skin and a sterile dressing applied. Perfusion to the extremity distal to the point of catheter insertion was checked and found to be adequate The attending radiologist was present for the entire procedure Estimated blood loss2 cc. Findings: Under fluoroscopy, the tip of the catheter is in good position in the vena cava. Portable chest x-ray, post line placement, as ordered. Impression: Successful ultrasound-guided needle placement right internal jugular vein. Successful placement of triple lumen catheter central line, percutaneous. Fluoroscopy 0.1 minute radiation dose 0.68 milligray 1 spot fluoroscopic chest. AP portable chest completion procedure demonstrates satisfactory position central line tip SVC. May use central line.
[2024-01-01] MEDS: ONDANSETRON INJ 2 MG/ML INJ 2 ML 4 MG IV (00:32)
[2024-01-01] MEDS: PIPER/TAZO 2.25 GM 2.25 GM/50 ML BAG IV ×3 (05:26→22:03)
[2024-01-01 06:05] LABS: Basophils # (Auto) 0.1 Thou/mm3 (0.0-0.2); Basophils % (Auto) 0 % (0-2.5); Eosinophils # (Auto) 0.2 Thou/mm3 (0.0-0.5); Eosinophils % (Auto) 1 % (0-10); Hematocrit 32.3 % (41.0-53.0); Hemoglobin 10.9 g/dL (13.5-16.0); Immature Granulocytes % (Auto) 4 % (0-0); Immature Granulocytes Auto 1.08 Thou/mm3 (0.00-0.00); Lymphocytes # (Auto) 1.6 Thou/mm3 (1.0-4.8); Lymphocytes % (Auto) 6 % (10-50); Mean Corpuscular HGB Conc 33.7 g/dl (31.0-37.0); Mean Corpuscular Hemoglobin 28.5 pg (25.0-35.0); Mean Corpuscular Volume 84 fL (80-100); Monocytes # (Auto) 2.3 Thou/mm3 (0.0-0.8); Monocytes % (Auto) 9 % (0-12); Neutrophils # (Auto) 21.3 Thou/mm3 (1.8-7.7); Neutrophils % (Auto) 80 % (37-80); Nucleated Red Blood Cell % 0 /100 WBC (0); Platelet Count 534 Thou/mm3 (140-440); RDW Standard Deviation 46.6 fL (35.1-43.9); Red Blood Count 3.83 Miln/mm3 (4.50-5.90); White Blood Count 26.6 Thou/mm3 (3.8-10.6)
[2024-01-01 06:38] LABS: Alanine Aminotransferase 17 U/L (10-49); Albumin/Globulin Ratio 0.9 (1.2-2.2); Alkaline Phosphatase 97 U/L (46-116); Anion Gap 8 (7-16); Aspartate Amino Transferase 39 U/L (0-34); BUN/Creatinine Ratio 21 Ratio (12-20); Bilirubin,Total 0.5 mg/dL (0.3-1.2); Blood Urea Nitrogen 38 mg/dL (9-23); Calcium 8.3 mg/dL (8.3-10.6); Calcium (Corrected) 9.1 mg/dL (8.5-10.1); Carbon Dioxide 23.6 mMol/L (20.0-31.0); Chloride 106 mMol/L (98-107); Creatinine (Component) 1.8 mg/dL (0.6-1.3); Estimated Creatinine Clearance 56.4 mL/min (>60); Globulin 3.5 gm/dL (2.3-3.5); Glucose 139 mg/dL (74-106); Osmolality,Calculated 286 (275-295); Potassium 3.3 mMol/L (3.4-5.1); Sodium 138 mMol/L (136-145); Total Protein 6.5 gm/dL (5.7-8.2); eGFR 48 See Note
[2024-01-01] MEDS: FLUCONAZOLE/NS 400 MG IVPB 400 MG/200 ML BAG 100 MG IV (09:15)
[2024-01-01] MEDS: PANTOPRAZOLE INJ 40 MG VIAL IVP (09:16)
[2024-01-01] MEDS: HEPARIN SOD INJ 5000 UNIT/ML VIAL SC ×2 (09:16→21:59)
[2024-01-01] MEDS: POTASSIUM CHL 10 mEq IVPB 10 MEQ/100 ML BAG 100 MEQ IV ×3 (09:16→14:42)
[2024-01-01] MEDS: MORPHINE SULF INJ 10 MG/ML VIAL 2 MG IVP (10:37)
--- NOTE | 2024-01-01 11:39 | PC.DIETICIAN ---
Nutrition prescription (CPN) Clinimix D20% AA5% at 100 ml/hr with 500 ml 20% lipid 3 times a week (Mon-Wed-Fri). Start at 40 ml/hr for 8 hrs, then 70 ml/hr for 8 hrs, then advance to goal of 100 ml/hr. 2400 ml volume, 120 g AA, 480 g dextrose, 2541 total calories, NPC 909. GIR=3.4 / LIR=0.4
[2024-01-01] MEDS: HEPARIN SOD LOCK SYR 100 UNIT/ML 500 UNIT STFIELD (12:00)
[2024-01-01] MEDS: LIDOCAINE INJ PF 1% 30 ML VIAL 7 ML INFL (12:00)
[2024-01-01 12:02] LABS: Magnesium 2.2 mg/dL (1.6-2.6); Phosphorous 3.9 mg/dL (2.4-5.1); Triglycerides 428 mg/dL (30-150)
--- NOTE | 2024-01-01 12:10 | ESPR_ITS ---
Documentation for date of: 01/01/24 Subjective Subjective Interval history: Andrew Pyle is a 43-y/o male no significant PMHx presented on 12/21/2023 with epigastric abdominal pain that migrated to RLQ. CT A/P showed acute appendicitis and underwent laparoscopic appendectomy on 12/20. Found to have gangrenous, perforated appendix with free purulent material in abdomen. Medicine team consulted 12/22 for persistent tachycardia, tachypnea, and oxygen requirement. Repeat CT A/P showed small bowel ileus, pneumoperitoneum, and possible abscess formation. Rapid response called for increased shortness of breath on 12/23 and was taken to the OR same night. Found to have small bowel perforation and free fecal material and now status post ileostomy with wound VAC in place. Transferred to ICU for postsurgical monitoring and downgraded on 12/26. Tolerating liquid diet and will advance per surgery recommendations. 12/27: Patient seen and examined at bedside, no acute overnight events. Blood pressure stable, mildly elevated at 149/88. No fevers overnight. Currently on 1 L nasal cannula saturating 94%. Patient appears fatigued but answering questions appropriately. Tolerating full liquid diet. General surgery ordered repeat CT A/P and gave 500 mL normal saline for ANITHA, which is improved from 2.9 to 2.5. Repeat CXR showed resolution of bibasilar pneumonia but significant air in stomach. Colostomy bag in place with wound VAC draining minimal dark green/brown material. 12/28: No acute overnight events. Spiked fever 100.5 overnight WBC increased from 38 to 40. Denies abdominal pain, nausea, vomiting, chills, sweats, shortness of breath. Currently on room air, improved from yesterday. Wound VAC draining appropriately. General surgery ordered abscess drainage. Infectious disease consulted regarding coverage for ventilation associated pneumonia given that patient was intubated in ICU. 12/29: No acute overnight events and no fevers overnight. Status post CT-guided wound drainage with placement of percutaneous drainage catheter. WBC down trended from 40 to 32, continues to deny abdominal pain, nausea, vomiting, chills, sweats, shortness of breath. Continues to be on room air and wound VAC draining appropriately. Tolerating regular diet. 12/30: No acute overnight events. No spiked fevers. Goes back and forth between requiring oxygen and room air. WBC continues to downtrend from 32.8 to 26.3. Patient encouraged to get out of bed and work with physical therapy as tolerated. 12/31: No acute overnight events. No spiked fevers. General surgery placed NG tube the patient removed himself due to discomfort. Surgery plans to close abdominal wound today, patient started on TPN given poor oral intake. Otherwise, patient denies abdominal pain, chest pain, fever, chills. Encouraged patient to use incentive spirometer and to work with physical therapy as much as he can tolerate. Exam Vital Signs Temp Pulse Resp BP Pulse Ox O2 Del Method O2 Flow Rate 97.8 F 83 24 H 152/90 H 96 Room Air 1 01/01/24 11:38 01/01/24 12:07 01/01/24 12:07 01/01/24 12:07 01/01/24 12:07 01/01/24 12:07 01/01/24 07:31 FiO2 35 01/01/24 04:00 Narrative Exam General: AOx3, fatigued, speaking in low-volume voice HEENT: NC/AT, mucous membranes moist, bilateral sclera anicteric Cardiovascular: regular rate and rhythm, S1/S2 present, no murmurs appreciated Pulmonary: Shallow breaths, clear to auscultation bilaterally, no rales/rhonchi/wheezes Abdominal: Colostomy bag in place, drainage catheter in place; abdomen firm, decreased distention from prior; non-tender Musculoskeletal: normal ROM, no peripheral edema Skin: warm and dry, intact, no rashes Neuro: CN II-XII intact, no focal deficits Objective Labs 01/02/24 05:43 01/02/24 05:43 Labs: Laboratory Results - last 24 hr 01/01/24 05:37 WBC 26.6 H RBC 3.83 L Hgb 10.9 L Hct 32.3 L MCV 84 MCH 28.5 MCHC 33.7 RDW Std Deviation 46.6 H Plt Count 534 H D Neut % (Auto) 80 Lymph % (Auto) 6 L [place] % (Auto) 9 Eos % (Auto) 1 Baso % (Auto) 0 Neut # (Auto) 21.3 H Lymph # (Auto) 1.6 [place] # (Auto) 2.3 H Eos # (Auto) 0.2 Baso # (Auto) 0.1 Immature Gran # (Auto) 1.08 H Absolute Nucleated RBC 0.00 Immature Gran % 4 H Nucleated RBC % 0 Sodium 138 Potassium 3.3 L Chloride 106 Carbon Dioxide 23.6 Anion Gap 8 BUN 38 H Creatinine 1.8 H Estim Creat Clear Calc 56.4 L eGFR 48 L BUN/Creatinine Ratio 21 H Glucose 139 H Calculated Osmolality 286 Calcium 8.3 Corrected Calcium 9.1 Phosphorus 3.9 Magnesium 2.2 Total Bilirubin 0.5 AST 39 H ALT 17 Alkaline Phosphatase 97 Total Protein 6.5 Albumin 3.0 L Globulin 3.5 Albumin/Globulin Ratio 0.9 L Triglycerides 428 H ABG Interpretation ABG results: 12/21/23 12/24/23 12/25/23 15:50 19:45 02:34 ABG pH 7.40 7.23 L D ABG pCO2 40 56 H D ABG pO2 134 H 229 H D ABG HCO3 25 24 ABG O2 Saturation 99 H 100 H ABG Base Excess 0 -5 L VBG pH 7.48 VBG pCO2 35 L VBG pO2 56 VBG Base Excess 2 12/25/23 12/25/23 12/26/23 04:54 10:48 06:56 ABG pH 7.25 L 7.33 L 7.34 L ABG pCO2 52 H 45 43 ABG pO2 93 D 99 95 ABG HCO3 23 23 23 ABG O2 Saturation 97 98 98 ABG Base Excess -5 L -3 -2 VBG pH VBG pCO2 VBG pO2 VBG Base Excess 12/26/23 10:15 ABG pH 7.36 ABG pCO2 41 ABG pO2 87 ABG HCO3 23 ABG O2 Saturation 98 ABG Base Excess -2 VBG pH VBG pCO2 VBG pO2 VBG Base Excess Quality Measures Quality Measures none Assessment & Plan Assessment Current Active Medications: Generic Name Dose Route Start Last Admin Trade Name Freq PRN Reason Stop Dose Admin Acetaminophen 650 mg 12/31/23 13:25 Acetaminophen 325 Mg Tablet PO 01/20/24 23:30 Q6HR PRN Pain (1-3) and FEVER>100.3 Heparin Sodium (Porcine) 5,000 unit 12/27/23 21:00 01/01/24 09:16 Heparin Sod Inj 5000 Unit/Ml Vial SC 01/10/24 20:59 5,000 unit Q12HR TAL Administration Hydralazine HCl 10 mg 12/28/23 18:00 12/30/23 01:03 Hydralazine Inj 20 Mg/Ml Vial IV 01/27/24 17:59 10 mg Q6H PRN Administration SBP >170 Piperacillin/Tazobactam/Dextrose 2.25 gm in 50 mls @ 12.5 mls/hr 12/29/23 11:00 01/01/24 05:26 Zosyn IV 01/05/24 10:59 12.5 mls/hr Q8HR TAL Administration Fluconazole 400 mg in 200 mls @ 100 mls/hr 12/30/23 09:00 01/01/24 09:15 Diflucan/Ns Ivpb IV 01/06/24 08:59 100 mls/hr QDAY TAL Administration Potassium Chloride 10 meq in 100 mls @ 100 mls/hr 01/01/24 08:30 01/01/24 09:16 Kcl Ivpb IV 01/01/24 12:29 100 mls/hr Q1H TAL Administration Lorazepam 1 mg 12/30/23 13:44 12/30/23 15:02 Lorazepam 0.5 Mg Tablet PO 01/04/24 13:43 1 mg X1 PRN Administration ANXIETY Melatonin 3 mg 12/28/23 21:00 12/31/23 21:10 Melatonin 3 Mg Tablet PO 01/27/24 20:59 3 mg HS TAL Administration Morphine Sulfate 2 mg 12/29/23 11:23 01/01/24 10:37 Morphine Sulf Inj 10 Mg/Ml Vial IVP 01/03/24 11:22 2 mg Q6HR PRN Administration PAIN SCALE 7-10 Ondansetron HCl 4 mg 12/21/23 23:31 01/01/24 00:32 Ondansetron Inj 2 Mg/Ml Inj 2 Ml IV 01/20/24 23:30 4 mg Q4HR PRN Administration NAUSEA OR VOMITING Oxycodone/Acetaminophen 1 tab 12/29/23 11:26 12/30/23 15:53 Oxycodone/Apap 5/325 Tablet PO 01/01/24 13:50 1 tab Q4H PRN Administration PAIN SCALE 4-6 Pantoprazole Sodium 40 mg 01/01/24 09:00 01/01/24 09:16 Pantoprazole Inj 40 Mg Vial IVP 01/31/24 08:59 40 mg QDAY TAL Administration Protocol Plan Andrew Pyle is a 43-y/o male no significant PMHx presented on 12/21/2023 with epigastric abdominal pain that migrated to RLQ. CT A/P showed acute appendicitis and underwent laparoscopic appendectomy on 12/20. Found to have gangrenous, perforated appendix with free purulent material in abdomen. Medicine team consulted 12/22 for persistent tachycardia, tachypnea, and oxygen requirement. Repeat CT A/P showed small bowel ileus, pneumoperitoneum, and possible abscess formation. Rapid response called for increased shortness of breath on 12/23 and was taken to the OR same night. Found to have small bowel perforation and free fecal material and now status post ileostomy with wound VAC in place. Transferred to ICU for postsurgical monitoring and downgraded on 12/26. Tolerating liquid diet and will advance per surgery recommendations. #Appendicitis, status-post appendectomy 12/20 #Small bowel perforation #Septic shock, resolved #S/p ileostomy 12/23 CT A/P: significant PNA right base, pneumoperitoneum, fluid subcapsular to liver, diffuse peritonitis. HCV and HIV nonreactive, sputum culture: mixed young, blood cx 12/24 NGTD, urine cx 12/[address] Status post [address]-guided percutaneous drainage catheter right subphrenic abscess 12/28 -> WBC now downtrending from 40 to 32. No fevers overnight. Per PT, requires assistance moving bilateral lower extremities towards edge of bed due to muscle weakness. Recommends rehab placement for skilled therapy services. -Infectious disease consulted -Fluconazole (12/25-) -Zosyn 2.25 g q8h (12/28-) -Consulted by general surgery -Low residue diet -Encourage incentive spirometer, physical therapy, out of bed as tolerated -Close abdominal wound today, 12/31 -Start TPN given poor oral intake -Monitor closely for sepsis or abscess formation in abdomen -Wound VAC in place -Percutaneous drainage catheter in place #Acute hypoxic respiratory failure, improving #Pneumonia right lung, resolved Extubated and downgraded from ICU on 12/26 -Zosyn for pneumonia and otitis coverage -Incentive spirometry -Wean off oxygen as tolerated #Acute kidney injury, improving -Strict I/O -Consider consulting nephrology if no improvement in kidney function -Avoid nephrotoxins and renally dose medications #Hypertension -Hydralazine 10 mg IV as needed #Normocytic anemia Likely in setting of recent surgery and IV hydration. No signs of active bleeding. -Monitor H&H Hospital management: Disposition: 1-2 more hospital night stays Fluids: Not indicated Diet: Low residue diet Lines: Peripheral, percutaneous drainage catheter, wound VAC DVT prophylaxis: Heparin SC GI prophylaxis: Pantoprazole 40 mg IV daily Villarreal: discontinued CODE STATUS: full code ----- Plan discussed with attending physician Dr. Ulysses Bryant MD PGY-1 Internal Medicine Attending Provider Attestation/Addendum Patient was seen and examined. He is tachypneic. He is on oxygen. His white count is 26,600. He denies abdominal discomfort or pain. I discussed with and supervised the resident physician who took care of this patient.
--- NOTE | 2024-01-01 12:19 | XR_ITS ---
Examination: IR fluoroscopically guided removal abdomen abscess drainage catheter Fluoroscopy AP abdomen single view Exam date and time: January 01, 2024 1216 hours INDICATIONS: No longer needed for the abdominal drainage catheter TECHNIQUE AND FINDINGS: Informed consent provided. Timeout performed. Skin prepped over the entrance site of the abdomen drainage catheter in Steri-Drape applied maximum sterile barrier technique hand hygiene 1% lidocaine administered for local anesthesia Utilizing fluoroscopic guidance removal of the abscess drainage catheter, estimated blood loss 2 cc Fluoroscopy 0.1 minute radiation dose 4.24 milligray 1 spot fluoroscopic abdomen films IMPRESSION: Successful IR fluoroscopically guided removal abdomen abscess drainage catheter
[2024-01-01] MEDS: fentaNYL CIT INJ 50 mCg/ML AMP 2ML IVP (12:39)
[2024-01-01] MEDS: LIDOCAINE INJ PF 1% 30 ML VIAL 5 ML INFL (12:40)
--- NOTE | 2024-01-01 12:59 | PC.NURSE ---
1259 patient is awake, alert, breathing unlabored, s/p central line insertion to right IJ and Successful IR fluoroscopically guided removal of abscess drainage catheter in right subphrenic abscess, patient tolerated procedure well. Report given to Rafael TURCIOS, patient placed in gurney and transferred back to room 279 being monitored with tele box.
--- NOTE | 2024-01-01 15:00 | PC.WOUND ---
Pt seen with Dr. Rubio, Rafael RN and Jess BERMUDEZ for translation. at bedside. Wound vac dressing removed, Dr. Rubio assessed. NS wet/dry dressing reapplied without changing ileostomy. Plan to return pt to the OR for secondary closure of wound, orders received to stop wound vac
--- NOTE | 2024-01-01 15:58 | PD.SURPROG ---
Documentation for date of: 01/01/24 Subjective Subjective Brief History: As above Narrative: The patient's abdomen is still slightly distended and he drained 1400 cc of fluid during the night and the NG tube. He is feeling better. Exam Vital Signs Temp Pulse Resp BP Pulse Ox O2 Del Method O2 Flow Rate 97.8 F 87 23 H 151/99 H 99 Nasal Cannula 3 01/01/24 11:38 01/01/24 12:50 01/01/24 12:50 01/01/24 12:50 01/01/24 12:50 01/01/24 12:50 01/01/24 12:50 FiO2 35 01/01/24 04:00 His vital signs are normal other than slightly elevated blood pressure Routine Respiratory Exam Comments: His breathing still seems to be labored probably because of either pneumonia or diaphragm that is lifted up Results Results: Laboratory Laboratory Narrative: WBC still high around 26,000 Assessment & Plan Assessment Additional comments: Impression: I inspected the wound which is clean Plan Plan: We shall close abdominal wound today Start the patient on TPN because his oral intake is inadequate Monitor him closely for any sepsis or abscess in the abdomen Procedures Procedures Exploratory laparotomy and closure of the distal stump of the ileum and diverting ileostomy and peritoneal lavage.
--- NOTE | 2024-01-01 17:30 | SUR.PHASEI ---
Pt. arrived to recovery via gurney, eyes closed, responds to name, VSS with exception of RR 30, abdominal breathing noted, pt. receiving 4 liters 02 via NC, lung sounds clear, diminished at bases, after review of RR trend, pt. RR is consistently in 30s, pt. does not appear to be in distress. Dressing to right medial abdomen, ileostomy to right medial abdomen, sutures, adaptic, 4x4 gauze and hypafix tape intact, ostomy bag intact, ileostomy stump appears dark red beefy in color, scant amount of dark red/brownish drainage in bag. Report received from Kimberly TURCIOS and Dr. Heart.
--- NOTE | 2024-01-01 17:48 | ESOP_ITS ---
Date of Procedure 01/01/24 Pre Op Diagnosis Infected abdominal wound Post Op Diagnosis Same Procedure Secondary closure of the abdominal incision Findings Patient was found to have wound dehiscence with sutures down through in the lower half of the incision but without any evisceration Procedure Description This patient was brought to the operating room for secondary closure of abdominal wound. This patient had peritonitis from the bowel leakage and he was treated with end ileostomy 1 week ago. At that time because of the massive smal l bowel contamination wound was left open and he has been having wound VAC for the past week. No wound VAC was making the wound clean and therefore it was decided to close the wound. After the patient was brought to the operating room LMA anesthesia was given. Then the wound was explored and I realized that the patient has ripped through few Prolene sutures in the lower half of the incision. But there is no evisceration or herniation of omentum or any other abnormality. This happened because of the tension. The wound was irrigated and then I placed few sutures of 0 Prolene but the did not hold and it tore through due to tension and edema. However I was able to approximate with 3 sutures of 0 PDS. The subcutaneous tissue was irrigated extensively and closed in 1 layer with interrupted 3-0 nylon and 4-0 nylon stitches using mattress approximation. Then the dressing was applied with Adaptic and 4 x 4 gauze and the ileostomy was treated with appliance of the bag. Patient tolerated the procedure well. Anesthesia other Pathology / specimen None IVF Infused 500 Estimated Blood Loss 150 Condition Stable Disposition floor Surgeon James Weiss MD Surgical Staff Operation Date: 01/01/24 16:30 Case Staff Anesthesiologist: Carter Heart
--- NOTE | 2024-01-01 18:15 | SUR.PHASEI ---
Called and gave report on pt. s/p surgery to Rafael TURCIOS on Telemetry.
--- NOTE | 2024-01-01 18:30 | SUR.PHASEI ---
Pt. transferred to room 279 via isaac baez, no c/o pain or nausea at this time, dressing to medial abd. CDI, ileostomy intact, IV flushed and patent, Rafael TURCIOS assumed care of pt.
[2024-01-01] MEDS: THIAMINE IV (18:34)
[2024-01-01] MEDS: CALCIUM GLUCONATE IV (18:34)
[2024-01-01] MEDS: POTASSIUM ACET IV (18:34)
[2024-01-01] MEDS: [UNRECOGNIZED DRUG - OTHER] IV (18:34)
[2024-01-01] MEDS: SODIUM CHLORIDE 0.9% 1000 ML 1,000 ML 100 ML IV (20:02)
[2024-01-02] VITALS (11 sets, daily range): BP systolic 137–158; BP diastolic 85–91; PULSE 83–97; RESP 15–31; TEMP 36.6–38.5; O2SAT 93–100
[2024-01-02] MEDS: ACETAMINOPHEN 325 MG TABLET 650 MG PO (00:03)
[2024-01-02] MEDS: PIPER/TAZO 2.25 GM 2.25 GM/50 ML BAG IV ×3 (05:45→22:01)
[2024-01-02 06:03] LABS: Basophils # (Auto) 0.1 Thou/mm3 (0.0-0.2); Basophils % (Auto) 0 % (0-2.5); Eosinophils # (Auto) 0.2 Thou/mm3 (0.0-0.5); Eosinophils % (Auto) 1 % (0-10); Hemoglobin 8.9 g/dL (13.5-16.0); Immature Granulocytes % (Auto) 5 % (0-0); Immature Granulocytes Auto 1.17 Thou/mm3 (0.00-0.00); Lymphocytes # (Auto) 1.3 Thou/mm3 (1.0-4.8); Lymphocytes % (Auto) 5 % (10-50); Mean Corpuscular Hemoglobin 28.4 pg (25.0-35.0); Mean Corpuscular Volume 86 fL (80-100); Monocytes # (Auto) 2.2 Thou/mm3 (0.0-0.8); Monocytes % (Auto) 9 % (0-12); Neutrophils % (Auto) 80 % (37-80); Nucleated Red Blood Cell % 0 /100 WBC (0); Platelet Count 546 Thou/mm3 (140-440); Red Blood Count 3.13 Miln/mm3 (4.50-5.90); White Blood Count 23.9 Thou/mm3 (3.8-10.6)
[2024-01-02 06:35] LABS: Alanine Aminotransferase 16 U/L (10-49); Albumin, Serum 2.7 gm/dL (3.5-5.0); Albumin/Globulin Ratio 0.8 (1.2-2.2); Alkaline Phosphatase 82 U/L (46-116); Anion Gap 6 (7-16); Aspartate Amino Transferase 34 U/L (0-34); BUN/Creatinine Ratio 18 Ratio (12-20); Bilirubin,Total 0.4 mg/dL (0.3-1.2); Blood Urea Nitrogen 34 mg/dL (9-23); Calcium 7.4 mg/dL (8.3-10.6); Calcium (Corrected) 8.4 mg/dL (8.5-10.1); Carbon Dioxide 24.9 mMol/L (20.0-31.0); Chloride 109 mMol/L (98-107); Creatinine (Component) 1.9 mg/dL (0.6-1.3); Estimated Creatinine Clearance 51.6 mL/min (>60); Globulin 3.2 gm/dL (2.3-3.5); Glucose 160 mg/dL (74-106); Osmolality,Calculated 290 (275-295); Potassium 3.5 mMol/L (3.4-5.1); Sodium 140 mMol/L (136-145); Total Protein 5.9 gm/dL (5.7-8.2); eGFR 45 See Note
--- NOTE | 2024-01-02 09:01 | PD.IDPROG ---
Subjective Subjective Interval history: post op fever noted overnight. wounds closed yest pm. Exam Vital Signs Temp Pulse Resp BP Pulse Ox O2 Del Method O2 Flow Rate 98.4 F 93 31 H 154/91 H 93 L Nasal Cannula 3 01/02/24 08:00 01/02/24 08:00 01/02/24 08:00 01/02/24 08:00 01/02/24 08:00 01/02/24 08:00 01/02/24 08:00 FiO2 35 01/01/24 20:00 Narrative Exam sitting in chair and taking some po. limited. abd benign. less distended. ckd persists. present Objective - Internal Medicine Labs 01/02/24 05:43 01/02/24 05:43 Labs: Laboratory Results - last 24 hr 01/01/24 01/02/24 05:37 05:43 WBC 23.9 H RBC 3.13 L Hgb 8.9 L D Hct 27.0 L MCV 86 MCH 28.4 MCHC 33.0 RDW Std Deviation 49.0 H Plt Count 546 H Neut % (Auto) 80 Lymph % (Auto) 5 L [place] % (Auto) 9 Eos % (Auto) 1 Baso % (Auto) 0 Neut # (Auto) 19.0 H Lymph # (Auto) 1.3 [place] # (Auto) 2.2 H Eos # (Auto) 0.2 Baso # (Auto) 0.1 Immature Gran # (Auto) 1.17 H Absolute Nucleated RBC 0.00 Immature Gran % 5 H Nucleated RBC % 0 Sodium 140 Potassium 3.5 Chloride 109 H Carbon Dioxide 24.9 Anion Gap 6 L BUN 34 H Creatinine 1.9 H Estim Creat Clear Calc 51.6 L eGFR 45 L BUN/Creatinine Ratio 18 Glucose 160 H Calculated Osmolality 290 Calcium 7.4 L Corrected Calcium 8.4 L Phosphorus 3.9 Magnesium 2.2 Total Bilirubin 0.4 AST 34 ALT 16 Alkaline Phosphatase 82 Total Protein 5.9 Albumin 2.7 L Globulin 3.2 Albumin/Globulin Ratio 0.8 L Triglycerides 428 H ABG Interpretation ABG results: 12/21/23 12/24/23 12/25/23 15:50 19:45 02:34 ABG pH 7.40 7.23 L D ABG pCO2 40 56 H D ABG pO2 134 H 229 H D ABG HCO3 25 24 ABG O2 Saturation 99 H 100 H ABG Base Excess 0 -5 L VBG pH 7.48 VBG pCO2 35 L VBG pO2 56 VBG Base Excess 2 12/25/23 12/25/23 12/26/23 04:54 10:48 06:56 ABG pH 7.25 L 7.33 L 7.34 L ABG pCO2 52 H 45 43 ABG pO2 93 D 99 95 ABG HCO3 23 23 23 ABG O2 Saturation 97 98 98 ABG Base Excess -5 L -3 -2 VBG pH VBG pCO2 VBG pO2 VBG Base Excess 12/26/23 10:15 ABG pH 7.36 ABG pCO2 41 ABG pO2 87 ABG HCO3 23 ABG O2 Saturation 98 ABG Base Excess -2 VBG pH VBG pCO2 VBG pO2 VBG Base Excess Assessment & Plan A&P Narrative abd perforation delayed wound closure done 12/31/23 dm II ckd will f/u regularly. we have exceeded the usual rx regimen and no abscess was found. hope he continues to improve on empiric rx. . it is traditional to add antifungal to abd rx. will see again Friday Time Spent With Patient Time: Total time spent is greater than 50% in coordination of care (as documented) at patient's floor/unit and/or counseling patient:
[2024-01-02] MEDS: HEPARIN SOD INJ 5000 UNIT/ML VIAL SC ×2 (10:36→20:13)
[2024-01-02] MEDS: PANTOPRAZOLE INJ 40 MG VIAL IVP (10:36)
[2024-01-02] MEDS: POTASSIUM CHLORIDE 20 mEq TABCR 40 MEQ PO (10:37)
[2024-01-02] MEDS: FLUCONAZOLE/NS 400 MG IVPB 400 MG/200 ML BAG 100 MG IV (10:37)
--- NOTE | 2024-01-02 10:53 | PD.SURPROG ---
Documentation for date of: 01/02/24 Subjective Subjective Narrative: The patient is feeling slightly better but he still tachypneic. He is hungry and wants to try some liquids Exam Vital Signs Temp Pulse Resp BP Pulse Ox O2 Del Method O2 Flow Rate 98.4 F 93 31 H 154/91 H 93 L Nasal Cannula 3 01/02/24 08:00 01/02/24 08:00 01/02/24 08:00 01/02/24 08:00 01/02/24 08:00 01/02/24 08:00 01/02/24 08:00 FiO2 35 01/01/24 20:00 His vital signs are normal but respiratory rate is around 31 Routine Abdominal Exam Comments: Abdominal examination is unchanged. Results Results: Laboratory Laboratory Narrative: Patient's laboratory workup showed still persistent leukocytosis which is around 23,000. His hemoglobin is down obviously from hemodilution. His BUN and creatinine also is still elevated Assessment & Plan Assessment Additional comments: Impression: Stable postoperative course following secondary closure of the abdomen Plan Plan: P.o. already started TPN yesterday we will remove the peripheral IV. Then monitor him closely. Procedures Procedures Secondary closure of the abdominal incision
--- NOTE | 2024-01-02 11:11 | ESPR_ITS ---
Documentation for date of: 01/02/24 Subjective Subjective Interval history: Andrew Pyle is a 43-y/o male no significant PMHx presented on 12/21/2023 with epigastric abdominal pain that migrated to RLQ. CT A/P showed acute appendicitis and underwent laparoscopic appendectomy on 12/20. Found to have gangrenous, perforated appendix with free purulent material in abdomen. Medicine team consulted 12/22 for persistent tachycardia, tachypnea, and oxygen requirement. Repeat CT A/P showed small bowel ileus, pneumoperitoneum, and possible abscess formation. Rapid response called for increased shortness of breath on 12/23 and was taken to the OR same night. Found to have small bowel perforation and free fecal material and now status post ileostomy with wound VAC in place. Transferred to ICU for postsurgical monitoring and downgraded on 12/26. Tolerating liquid diet and will advance per surgery recommendations. 12/27: Patient seen and examined at bedside, no acute overnight events. Blood pressure stable, mildly elevated at 149/88. No fevers overnight. Currently on 1 L nasal cannula saturating 94%. Patient appears fatigued but answering questions appropriately. Tolerating full liquid diet. General surgery ordered repeat CT A/P and gave 500 mL normal saline for ANITHA, which is improved from 2.9 to 2.5. Repeat CXR showed resolution of bibasilar pneumonia but significant air in stomach. Colostomy bag in place with wound VAC draining minimal dark green/brown material. 12/28: No acute overnight events. Spiked fever 100.5 overnight WBC increased from 38 to 40. Denies abdominal pain, nausea, vomiting, chills, sweats, shortness of breath. Currently on room air, improved from yesterday. Wound VAC draining appropriately. General surgery ordered abscess drainage. Infectious disease consulted regarding coverage for ventilation associated pneumonia given that patient was intubated in ICU. 12/29: No acute overnight events and no fevers overnight. Status post CT-guided wound drainage with placement of percutaneous drainage catheter. WBC down trended from 40 to 32, continues to deny abdominal pain, nausea, vomiting, chills, sweats, shortness of breath. Continues to be on room air and wound VAC draining appropriately. Tolerating regular diet. 12/30: No acute overnight events. No spiked fevers. Goes back and forth between requiring oxygen and room air. WBC continues to downtrend from 32.8 to 26.3. Patient encouraged to get out of bed and work with physical therapy as tolerated. 12/31: No acute overnight events. No spiked fevers. General surgery placed NG tube the patient removed himself due to discomfort. Surgery plans to close abdominal wound today, patient started on TPN given poor oral intake. Otherwise, patient denies abdominal pain, chest pain, fever, chills. Encouraged patient to use incentive spirometer and to work with physical therapy as much as he can tolerate. 01/01: No acute overnight events. Fever 101.3 F overnight. Underwent secondary closure of abdominal incision, found to have dehiscence without evisceration. At bedside patient denies fever, chills, N/V, abdominal pain but does endorse fatigue. Exam Vital Signs Temp Pulse Resp BP Pulse Ox O2 Del Method O2 Flow Rate 98.4 F 93 31 H 154/91 H 93 L Nasal Cannula 3 01/02/24 08:00 01/02/24 08:00 01/02/24 08:00 01/02/24 08:00 01/02/24 08:00 01/02/24 08:00 01/02/24 08:00 FiO2 35 01/01/24 20:00 Objective Labs 01/03/24 05:22 01/03/24 05:22 Labs: Laboratory Results - last 24 hr 01/01/24 01/02/24 05:37 05:43 WBC 23.9 H RBC 3.13 L Hgb 8.9 L D Hct 27.0 L MCV 86 MCH 28.4 MCHC 33.0 RDW Std Deviation 49.0 H Plt Count 546 H Neut % (Auto) 80 Lymph % (Auto) 5 L [place] % (Auto) 9 Eos % (Auto) 1 Baso % (Auto) 0 Neut # (Auto) 19.0 H Lymph # (Auto) 1.3 [place] # (Auto) 2.2 H Eos # (Auto) 0.2 Baso # (Auto) 0.1 Immature Gran # (Auto) 1.17 H Absolute Nucleated RBC 0.00 Immature Gran % 5 H Nucleated RBC % 0 Sodium 140 Potassium 3.5 Chloride 109 H Carbon Dioxide 24.9 Anion Gap 6 L BUN 34 H Creatinine 1.9 H Estim Creat Clear Calc 51.6 L eGFR 45 L BUN/Creatinine Ratio 18 Glucose 160 H Calculated Osmolality 290 Calcium 7.4 L Corrected Calcium 8.4 L Phosphorus 3.9 Magnesium 2.2 Total Bilirubin 0.4 AST 34 ALT 16 Alkaline Phosphatase 82 Total Protein 5.9 Albumin 2.7 L Globulin 3.2 Albumin/Globulin Ratio 0.8 L Triglycerides 428 H ABG Interpretation ABG results: 12/21/23 12/24/23 12/25/23 15:50 19:45 02:34 ABG pH 7.40 7.23 L D ABG pCO2 40 56 H D ABG pO2 134 H 229 H D ABG HCO3 25 24 ABG O2 Saturation 99 H 100 H ABG Base Excess 0 -5 L VBG pH 7.48 VBG pCO2 35 L VBG pO2 56 VBG Base Excess 2 12/25/23 12/25/23 12/26/23 04:54 10:48 06:56 ABG pH 7.25 L 7.33 L 7.34 L ABG pCO2 52 H 45 43 ABG pO2 93 D 99 95 ABG HCO3 23 23 23 ABG O2 Saturation 97 98 98 ABG Base Excess -5 L -3 -2 VBG pH VBG pCO2 VBG pO2 VBG Base Excess 12/26/23 10:15 ABG pH 7.36 ABG pCO2 41 ABG pO2 87 ABG HCO3 23 ABG O2 Saturation 98 ABG Base Excess -2 VBG pH VBG pCO2 VBG pO2 VBG Base Excess Quality Measures Quality Measures none Assessment & Plan Assessment Current Active Medications: Generic Name Dose Route Start Last Admin Trade Name Freq PRN Reason Stop Dose Admin Acetaminophen 650 mg 12/31/23 13:25 01/02/24 00:03 Acetaminophen 325 Mg Tablet PO 01/20/24 23:30 650 mg Q6HR PRN Administration Pain (1-3) and FEVER>100.3 Heparin Sodium (Porcine) 5,000 unit 12/27/23 21:00 01/02/24 10:36 Heparin Sod Inj 5000 Unit/Ml Vial SC 01/10/24 20:59 5,000 unit Q12HR TAL Administration Hydralazine HCl 10 mg 12/28/23 18:00 12/30/23 01:03 Hydralazine Inj 20 Mg/Ml Vial IV 01/27/24 17:59 10 mg Q6H PRN Administration SBP >170 Piperacillin/Tazobactam/Dextrose 2.25 gm in 50 mls @ 12.5 mls/hr 12/29/23 11:00 01/02/24 05:45 Zosyn IV 01/05/24 10:59 12.5 mls/hr Q8HR TAL Administration Fluconazole 400 mg in 200 mls @ 100 mls/hr 12/30/23 09:00 01/02/24 10:37 Diflucan/Ns Ivpb IV 01/06/24 08:59 100 mls/hr QDAY TAL Administration Fat Emulsion-[place] Oil/Soybean Oil 500 mls @ 32 mls/hr 01/02/24 18:00 Clinopid 20% Iv IV 02/01/24 17:59 MoWeFr TAL Potassium Acetate 70 meq/ 2,056 mls @ 40 mls/hr 01/01/24 18:00 01/01/24 18:34 Calcium Gluconate 1 gm/ IV 01/02/24 17:59 40 mls/hr Thiamine HCl 100 mg/ QDAY@1800 ONE Administration Multivitamins/Minerals 10 ml/ Amino Acids Lorazepam 1 mg 12/30/23 13:44 12/30/23 15:02 Lorazepam 0.5 Mg Tablet PO 01/04/24 13:43 1 mg X1 PRN Administration ANXIETY Melatonin 3 mg 12/28/23 21:00 01/01/24 22:04 Melatonin 3 Mg Tablet PO 01/27/24 20:59 Not Given HS [facility] Morphine Sulfate 2 mg 12/29/23 11:23 01/01/24 10:37 Morphine Sulf Inj 10 Mg/Ml Vial IVP 01/03/24 11:22 2 mg Q6HR PRN Administration PAIN SCALE 7-10 Ondansetron HCl 4 mg 12/21/23 23:31 01/01/24 00:32 Ondansetron Inj 2 Mg/Ml Inj 2 Ml IV 01/20/24 23:30 4 mg Q4HR PRN Administration NAUSEA OR VOMITING Pantoprazole Sodium 40 mg 01/01/24 09:00 01/02/24 10:36 Pantoprazole Inj 40 Mg Vial IVP 01/31/24 08:59 40 mg QDAY TAL Administration Protocol Plan Andrew Pyle is a 43-y/o male no significant PMHx presented on 12/21/2023 with epigastric abdominal pain that migrated to RLQ. CT A/P showed acute appendicitis and underwent laparoscopic appendectomy on 12/20. Found to have gangrenous, perforated appendix with free purulent material in abdomen. Medicine team consulted 12/22 for persistent tachycardia, tachypnea, and oxygen requirement. Repeat CT A/P showed small bowel ileus, pneumoperitoneum, and possible abscess formation. Rapid response called for increased shortness of breath on 12/23 and was taken to the OR same night. Found to have small bowel perforation and free fecal material and now status post ileostomy with wound VAC in place. Transferred to ICU for postsurgical monitoring and downgraded on 12/26. Tolerating liquid diet and will advance per surgery recommendations. #Appendicitis, status-post appendectomy 12/20 #Small bowel perforation #Septic shock, resolved #S/p ileostomy 12/24 #Peritonitis #Subcapsular abscess 12/20, laparoscopic appendectomy 12/24, ex lap and closure of distal stump of ileum and diverting ileostomy and peritoneal lavage 12/28, CT-guided percutaneous drainage catheter placed for right subphrenic abscess 12/31, secondary closure of abdominal incision HCV and HIV nonreactive. Sputum, blood, and urine culture negative. PT recommends rehab placement for skilled therapy services. -Infectious disease consulted -Fluconazole (12/25-) -Zosyn 2.25 g q8h (12/28-) -Consulted by general surgery -Low residue diet -Encourage incentive spirometer, physical therapy, out of bed as tolerated -Start TPN given poor oral intake -Monitor closely for sepsis or abscess formation in abdomen -Wound VAC in place -Percutaneous drainage catheter in place #Acute hypoxic respiratory failure, improving #Pneumonia right lung, resolved Extubated and downgraded from ICU on 12/26 -Zosyn -Incentive spirometry -Wean off oxygen as tolerated #Acute kidney injury, improving -Strict I/O -Consider consulting nephrology if no improvement in kidney function -Avoid nephrotoxins and renally dose medications #Hypertension -Hydralazine 10 mg IV as needed #Normocytic anemia Likely in setting of recent surgery and IV hydration. No signs of active bleeding. -Monitor H&H Hospital management: Disposition: 1-2 more hospital night stays Fluids: Not indicated Diet: Low residue diet Lines: Central, percutaneous drainage catheter, wound VAC DVT prophylaxis: Heparin SC GI prophylaxis: Pantoprazole 40 mg IV daily [place]: discontinued CODE STATUS: full code ----- Plan discussed with attending physician Dr. Ulysses Bryant MD PGY-1 Internal Medicine Attending Provider Attestation/Addendum Patient had fever overnight. White count 23,000. Patient underwent secondary closure of abdominal incision. I had bedside discussion with general surgeon Dr. Rubio this morning. Percutaneous drain has been removed. He is on TPN. ID recommendations appreciated. Patient is on IV Diflucan and Zosyn.
[2024-01-02 14:36] LABS: Magnesium 1.9 mg/dL (1.6-2.6); Phosphorous 2.3 mg/dL (2.4-5.1)
--- NOTE | 2024-01-02 15:05 | PC.SS ---
Rounding note; Surgical rec's pending. Patient is on IV ABX.
[2024-01-02] MEDS: CALCIUM GLUCONATE IV (18:10)
[2024-01-02] MEDS: FAT EMUL/OLIVE/SOY/PHOS 20% IV 500 ML 32 ML IV (18:10)
[2024-01-02] MEDS: [UNRECOGNIZED DRUG - OTHER] IV (18:10)
[2024-01-02] MEDS: THIAMINE IV (18:10)
[2024-01-02] MEDS: POTASSIUM ACET IV (18:10)
[2024-01-02] MEDS: MELATONIN 3 MG TABLET PO (20:13)
[2024-01-03] VITALS (10 sets, daily range): BP systolic 151–163; BP diastolic 86–97; PULSE 80–95; RESP 15–30; TEMP 36.3–37.6; O2SAT 97–99
[2024-01-03] MEDS: PIPER/TAZO 2.25 GM 2.25 GM/50 ML BAG IV ×2 (05:14→13:35)
[2024-01-03 06:00] LABS: Basophils # (Auto) 0.1 Thou/mm3 (0.0-0.2); Basophils % (Auto) 0 % (0-2.5); Eosinophils # (Auto) 0.3 Thou/mm3 (0.0-0.5); Eosinophils % (Auto) 1 % (0-10); Hematocrit 27.5 % (41.0-53.0); Hemoglobin 8.9 g/dL (13.5-16.0); Immature Granulocytes % (Auto) 4 % (0-0); Immature Granulocytes Auto 1.15 Thou/mm3 (0.00-0.00); Lymphocytes # (Auto) 1.5 Thou/mm3 (1.0-4.8); Lymphocytes % (Auto) 6 % (10-50); Mean Corpuscular HGB Conc 32.4 g/dl (31.0-37.0); Mean Corpuscular Hemoglobin 28.4 pg (25.0-35.0); Mean Corpuscular Volume 88 fL (80-100); Monocytes # (Auto) 2.6 Thou/mm3 (0.0-0.8); Monocytes % (Auto) 10 % (0-12); Neutrophils % (Auto) 79 % (37-80); Nucleated Red Blood Cell % 0 /100 WBC (0); Platelet Count 577 Thou/mm3 (140-440); RDW Standard Deviation 50.5 fL (35.1-43.9); Red Blood Count 3.13 Miln/mm3 (4.50-5.90); White Blood Count 26.7 Thou/mm3 (3.8-10.6)
[2024-01-03 06:29] LABS: Alanine Aminotransferase 20 U/L (10-49); Alkaline Phosphatase 83 U/L (46-116); Anion Gap 9 (7-16); Aspartate Amino Transferase 38 U/L (0-34); BUN/Creatinine Ratio 17 Ratio (12-20); Bilirubin,Total 0.2 mg/dL (0.3-1.2); Blood Urea Nitrogen 31 mg/dL (9-23); Calcium 7.7 mg/dL (8.3-10.6); Calcium (Corrected) 8.5 mg/dL (8.5-10.1); Carbon Dioxide 21.2 mMol/L (20.0-31.0); Chloride 107 mMol/L (98-107); Creatinine (Component) 1.8 mg/dL (0.6-1.3); Estimated Creatinine Clearance 54.6 mL/min (>60); Globulin 3.1 gm/dL (2.3-3.5); Glucose 198 mg/dL (74-106); Magnesium 1.8 mg/dL (1.6-2.6); Osmolality,Calculated 286 (275-295); Phosphorous 2.2 mg/dL (2.4-5.1); Potassium 3.4 mMol/L (3.4-5.1); Sodium 137 mMol/L (136-145); Total Protein 6.1 gm/dL (5.7-8.2); eGFR 48 See Note
[2024-01-03] MEDS: NAPH,KPH MBDB 1 PACKET (1.5 GM) 2 PACKET PO (09:01)
[2024-01-03] MEDS: FLUCONAZOLE/NS 400 MG IVPB 400 MG/200 ML BAG 100 MG IV (09:03)
[2024-01-03] MEDS: PANTOPRAZOLE INJ 40 MG VIAL IVP (09:03)
[2024-01-03] MEDS: HEPARIN SOD INJ 5000 UNIT/ML VIAL SC ×2 (09:11→21:48)
--- NOTE | 2024-01-03 09:55 | PD.RESPRO ---
Documentation for date of: 01/03/24 Subjective Subjective Interval history: Andrew Pyle is a 43-y/o male no significant PMHx presented on 12/21/2023 with epigastric abdominal pain that migrated to RLQ. CT A/P showed acute appendicitis and underwent laparoscopic appendectomy on 12/20. Found to have gangrenous, perforated appendix with free purulent material in abdomen. Medicine team consulted 12/22 for persistent tachycardia, tachypnea, and oxygen requirement. Repeat CT A/P showed small bowel ileus, pneumoperitoneum, and possible abscess formation. Rapid response called for increased shortness of breath on 12/23 and was taken to the OR same night. Found to have small bowel perforation and free fecal material and now status post ileostomy with wound VAC in place. Transferred to ICU for postsurgical monitoring and downgraded on 12/26. Tolerating liquid diet and will advance per surgery recommendations. 12/27: Patient seen and examined at bedside, no acute overnight events. Blood pressure stable, mildly elevated at 149/88. No fevers overnight. Currently on 1 L nasal cannula saturating 94%. Patient appears fatigued but answering questions appropriately. Tolerating full liquid diet. General surgery ordered repeat CT A/P and gave 500 mL normal saline for ANITHA, which is improved from 2.9 to 2.5. Repeat CXR showed resolution of bibasilar pneumonia but significant air in stomach. Colostomy bag in place with wound VAC draining minimal dark green/brown material. 12/28: No acute overnight events. Spiked fever 100.5 overnight WBC increased from 38 to 40. Denies abdominal pain, nausea, vomiting, chills, sweats, shortness of breath. Currently on room air, improved from yesterday. Wound VAC draining appropriately. General surgery ordered abscess drainage. Infectious disease consulted regarding coverage for ventilation associated pneumonia given that patient was intubated in ICU. 12/29: No acute overnight events and no fevers overnight. Status post CT-guided wound drainage with placement of percutaneous drainage catheter. WBC down trended from 40 to 32, continues to deny abdominal pain, nausea, vomiting, chills, sweats, shortness of breath. Continues to be on room air and wound VAC draining appropriately. Tolerating regular diet. 12/30: No acute overnight events. No spiked fevers. Goes back and forth between requiring oxygen and room air. WBC continues to downtrend from 32.8 to 26.3. Patient encouraged to get out of bed and work with physical therapy as tolerated. 12/31: No acute overnight events. No spiked fevers. General surgery placed NG tube the patient removed himself due to discomfort. Surgery plans to close abdominal wound today, patient started on TPN given poor oral intake. Otherwise, patient denies abdominal pain, chest pain, fever, chills. Encouraged patient to use incentive spirometer and to work with physical therapy as much as he can tolerate. 01/01: No acute overnight events. Fever 101.3 F overnight. Underwent secondary closure of abdominal incision, found to have dehiscence without evisceration. At bedside patient denies fever, chills, N/V, abdominal pain but does endorse fatigue. 01/02: No overnight events. Patient seen and assessed at bedside this morning. Patient states to be feeling slightly lightheaded when sitting at bedside. Patient noted to be hypokalemic and have low phosphorus which was repleted. Patient continues on liquid diet and TPN. Exam Vital Signs Temp Pulse Resp BP Pulse Ox O2 Del Method O2 Flow Rate 98.0 F 83 30 H 157/87 H 99 Nasal Cannula 3 01/03/24 08:00 01/03/24 09:31 01/03/24 09:31 01/03/24 08:00 01/03/24 09:31 01/03/24 08:00 01/03/24 09:31 FiO2 35 01/03/24 08:00 Narrative Exam General: AOx3, ill-appearing and fatigued, speaking in low-volume voice Cardiovascular: regular rate and rhythm, S1/S2 present, no murmurs appreciated Pulmonary: Decreased breath sounds, clear to auscultation bilaterally, no rales/rhonchi/wheezes Abdominal: Colostomy bag in place, drainage catheter in place; abdomen firm, decreased distention from prior; non-tender. Clean gauze over surgical site. Skin: warm and dry, intact, no rashes, no peripheral edema. Objective Labs 01/03/24 05:22 01/03/24 05:22 Labs: Laboratory Results - last 24 hr 01/02/24 01/03/24 13:50 05:22 WBC 26.7 H RBC 3.13 L Hgb 8.9 L Hct 27.5 L MCV 88 MCH 28.4 MCHC 32.4 RDW Std Deviation 50.5 H Plt Count 577 H D Neut % (Auto) 79 Lymph % (Auto) 6 L [place] % (Auto) 10 Eos % (Auto) 1 Baso % (Auto) 0 Neut # (Auto) 21.0 H Lymph # (Auto) 1.5 [place] # (Auto) 2.6 H Eos # (Auto) 0.3 Baso # (Auto) 0.1 Immature Gran # (Auto) 1.15 H Absolute Nucleated RBC 0.00 Immature Gran % 4 H Nucleated RBC % 0 Sodium 137 Potassium 3.4 Chloride 107 Carbon Dioxide 21.2 Anion Gap 9 BUN 31 H Creatinine 1.8 H Estim Creat Clear Calc 54.6 L eGFR 48 L BUN/Creatinine Ratio 17 Glucose 198 H Calculated Osmolality 286 Calcium 7.7 L Corrected Calcium 8.5 Phosphorus 2.3 L 2.2 L Magnesium 1.9 1.8 Total Bilirubin 0.2 L AST 38 H ALT 20 Alkaline Phosphatase 83 Total Protein 6.1 Albumin 3.0 L Globulin 3.1 Albumin/Globulin Ratio 1.0 L ABG Interpretation ABG results: 12/21/23 12/24/23 12/25/23 15:50 19:45 02:34 ABG pH 7.40 7.23 L D ABG pCO2 40 56 H D ABG pO2 134 H 229 H D ABG HCO3 25 24 ABG O2 Saturation 99 H 100 H ABG Base Excess 0 -5 L VBG pH 7.48 VBG pCO2 35 L VBG pO2 56 VBG Base Excess 2 12/25/23 12/25/23 12/26/23 04:54 10:48 06:56 ABG pH 7.25 L 7.33 L 7.34 L ABG pCO2 52 H 45 43 ABG pO2 93 D 99 95 ABG HCO3 23 23 23 ABG O2 Saturation 97 98 98 ABG Base Excess -5 L -3 -2 VBG pH VBG pCO2 VBG pO2 VBG Base Excess 12/26/23 10:15 ABG pH 7.36 ABG pCO2 41 ABG pO2 87 ABG HCO3 23 ABG O2 Saturation 98 ABG Base Excess -2 VBG pH VBG pCO2 VBG pO2 VBG Base Excess Quality Measures Quality Measures none Assessment & Plan Assessment Current Active Medications: Generic Name Dose Route Start Last Admin Trade Name Freq PRN Reason Stop Dose Admin Acetaminophen 650 mg 12/31/23 13:25 01/02/24 00:03 Acetaminophen 325 Mg Tablet PO 01/20/24 23:30 650 mg Q6HR PRN Administration Pain (1-3) and FEVER>100.3 Heparin Sodium (Porcine) 5,000 unit 12/27/23 21:00 01/03/24 09:11 Heparin Sod Inj 5000 Unit/Ml Vial SC 01/10/24 20:59 5,000 unit Q12HR TAL Administration Hydralazine HCl 10 mg 12/28/23 18:00 12/30/23 01:03 Hydralazine Inj 20 Mg/Ml Vial IV 01/27/24 17:59 10 mg Q6H PRN Administration SBP >170 Piperacillin/Tazobactam/Dextrose 2.25 gm in 50 mls @ 12.5 mls/hr 12/29/23 11:00 01/03/24 05:14 Zosyn IV 01/05/24 10:59 12.5 mls/hr Q8HR TAL Administration Fluconazole 400 mg in 200 mls @ 100 mls/hr 12/30/23 09:00 01/03/24 09:03 Diflucan/Ns Ivpb IV 01/06/24 08:59 100 mls/hr QDAY TAL Administration Fat Emulsion-[place] Oil/Soybean Oil 500 mls @ 32 mls/hr 01/02/24 18:00 01/02/24 18:10 Clinopid 20% Iv IV 02/01/24 17:59 32 mls/hr MoWeFr TAL Administration Potassium Acetate 40 meq/ 2,041 mls @ 100 mls/hr 01/02/24 18:00 01/02/24 18:10 Calcium Gluconate 1 gm/ IV 01/03/24 14:24 100 mls/hr Thiamine HCl 100 mg/ QDAY@1800 ONE Administration Multivitamins/Minerals 10 ml/ Amino Acids Potassium Acetate 50 meq/ 2,053 mls @ 100.588 mls/hr 01/03/24 14:25 Sodium Phosphate 30 mmol/ IV 01/04/24 10:49 Multivitamins/Minerals 10 ml/ QDAY ONE Magnesium Sulfate 4 gm/ Amino Acids Melatonin 3 mg 12/28/23 21:00 01/02/24 20:13 Melatonin 3 Mg Tablet PO 01/27/24 20:59 3 mg HS TAL Administration Morphine Sulfate 2 mg 12/29/23 11:23 01/01/24 10:37 Morphine Sulf Inj 10 Mg/Ml Vial IVP 01/03/24 11:22 2 mg Q6HR PRN Administration PAIN SCALE 7-10 Ondansetron HCl 4 mg 12/21/23 23:31 01/01/24 00:32 Ondansetron Inj 2 Mg/Ml Inj 2 Ml IV 01/20/24 23:30 4 mg Q4HR PRN Administration NAUSEA OR VOMITING Pantoprazole Sodium 40 mg 01/01/24 09:00 01/03/24 09:03 Pantoprazole Inj 40 Mg Vial IVP 01/31/24 08:59 40 mg QDAY TAL Administration Protocol Plan Andrew Pyle is a 43-y/o male no significant PMHx presented on 12/21/2023 with epigastric abdominal pain that migrated to RLQ. CT A/P showed acute appendicitis and underwent laparoscopic appendectomy on 12/20. Found to have gangrenous, perforated appendix with free purulent material in abdomen. Medicine team consulted 12/22 for persistent tachycardia, tachypnea, and oxygen requirement. Repeat CT A/P showed small bowel ileus, pneumoperitoneum, and possible abscess formation. Rapid response called for increased shortness of breath on 12/23 and was taken to the OR same night. Found to have small bowel perforation and free fecal material and now status post ileostomy with wound VAC in place. Transferred to ICU for postsurgical monitoring and downgraded on 12/26. Tolerating liquid diet and will advance per surgery recommendations. #Appendicitis, status-post appendectomy 12/20 #Small bowel perforation #Septic shock, resolved #S/p ileostomy 12/24 #Peritonitis #Subcapsular abscess 12/20, laparoscopic appendectomy 12/24, ex lap and closure of distal stump of ileum and diverting ileostomy and peritoneal lavage 12/28, CT-guided percutaneous drainage catheter placed for right subphrenic abscess 12/31, secondary closure of abdominal incision HCV and HIV nonreactive. Sputum, blood, and urine culture negative. PT recommends rehab placement for skilled therapy services. -Infectious disease consulted -Fluconazole (12/25-) -Zosyn 2.25 g q8h (12/28-) -Consulted by general surgery -Advance diet per surgery -Encourage incentive spirometer, physical therapy, out of bed as tolerated -On TPN given poor oral intake -Monitor closely for sepsis or abscess formation in abdomen #Acute hypoxic respiratory failure, improving #Pneumonia right lung, resolved Extubated and downgraded from ICU on 12/26 -Zosyn -Incentive spirometry -Wean off oxygen as tolerated #Acute kidney injury, improving -Strict I/O -Creatinine continues to improve -Avoid nephrotoxins and renally dose medications #Hypertension ?Patient started on amlodipine -Hydralazine 10 mg IV as needed #Normocytic anemia Likely in setting of recent surgery and IV hydration. No signs of active bleeding. -Monitor H&H Hospital management: Diet: Regular Lines: Central, percutaneous drainage catheter, wound VAC DVT prophylaxis: Heparin SC GI prophylaxis: Pantoprazole 40 mg IV daily CODE STATUS: full code Plan discussed with attending physician Dr. Ulysses Frias MD PGY3 Attending Provider Attestation/Addendum Patient still mildly tachypneic. Sodium is 137. Creatinine 1.8. White blood cell count is 26,700. He is on IV Diflucan and IV Zosyn. He has no worsening abdominal distention no nausea or vomiting reported. I discussed with and supervised the resident physician who took care of this patient.
[2024-01-03] MEDS: amLODIPine BESYLATE 5 MG TABLET PO ×2 (13:41→17:41)
--- NOTE | 2024-01-03 13:42 | PD.SURPROG ---
Documentation for date of: 01/03/24 Subjective Subjective Brief History: As above Narrative: The patient is still tachypneic with the respiratory rate of about 25-30. He does not have any abdominal pain or distention Exam Vital Signs Temp Pulse Resp BP Pulse Ox O2 Del Method O2 Flow Rate 97.3 F 80 26 H 163/97 H 98 Nasal Cannula 3 01/03/24 12:00 01/03/24 13:41 01/03/24 12:00 01/03/24 13:41 01/03/24 12:00 01/03/24 12:00 01/03/24 12:00 FiO2 35 01/03/24 12:00 Vital signs are normal other than the increased respiratory rate Routine Abdominal Exam Comments: Abdominal incision seems to be clean and ileostomy is draining. Results Results: Laboratory Laboratory Narrative: WBC still elevated around 26,000 Assessment & Plan Assessment Additional comments: Impression: Continued tachypnea We need to rule out persistent pneumonia as well as pulmonary embolism Plan Plan: We shall get a chest x-ray today and if necessary we shall get a CTA to rule out pulmonary embolism. Will advance her diet to regular Procedures Procedures Secondary closure of the abdominal incision
--- NOTE | 2024-01-03 13:44 | XR_ITS ---
Examination: AP chest single view Technique one AP portable semiupright chest single view Exam date and time: January 03, 2024 1406 hrs. Comparison December 28, 2023 Indications: Onset shortness of breath today. Findings: Right base pneumonia obscuring detail right hemidiaphragm Mild enlargement cardiac contour Subsegmental atelectasis left base Mild vascular congestion Right internal jugular central line tip SVC satisfactory position No pneumothorax Impression: Right base pneumonia
[2024-01-03] MEDS: SOD PHOS ADDITIVE IV (15:16)
[2024-01-03] MEDS: POTASSIUM ACET IV (15:16)
[2024-01-03] MEDS: [UNRECOGNIZED DRUG - OTHER] IV (15:16)
[2024-01-03] MEDS: MULTIVITAMIN IV (15:16)
[2024-01-03] MEDS: MELATONIN 3 MG TABLET PO (21:48)
[2024-01-03] MEDS: MEROPENEM INJ 1,000 MG in SODIUM CHLORIDE 0.9% (P) 50 ML 100 MG IV (21:48)
[2024-01-04] VITALS (12 sets, daily range): BP systolic 146–159; BP diastolic 89–101; PULSE 85–113; RESP 21–32; TEMP 36.6–37.5; O2SAT 97–99
[2024-01-04] MEDS: MEROPENEM INJ 1,000 MG in SODIUM CHLORIDE 0.9% (P) 50 ML 100 MG IV ×3 (05:54→22:15)
[2024-01-04 06:16] LABS: Basophils # (Auto) 0.1 Thou/mm3 (0.0-0.2); Basophils % (Auto) 0 % (0-2.5); Eosinophils # (Auto) 0.1 Thou/mm3 (0.0-0.5); Eosinophils % (Auto) 0 % (0-10); Hematocrit 30.3 % (41.0-53.0); Hemoglobin 9.9 g/dL (13.5-16.0); Immature Granulocytes % (Auto) 5 % (0-0); Immature Granulocytes Auto 1.51 Thou/mm3 (0.00-0.00); Lymphocytes # (Auto) 1.3 Thou/mm3 (1.0-4.8); Lymphocytes % (Auto) 5 % (10-50); Mean Corpuscular HGB Conc 32.7 g/dl (31.0-37.0); Mean Corpuscular Volume 86 fL (80-100); Monocytes # (Auto) 3.1 Thou/mm3 (0.0-0.8); Monocytes % (Auto) 11 % (0-12); Neutrophils # (Auto) 22.6 Thou/mm3 (1.8-7.7); Neutrophils % (Auto) 79 % (37-80); Nucleated Red Blood Cell % 0 /100 WBC (0); Platelet Count 628 Thou/mm3 (140-440); RDW Standard Deviation 48.5 fL (35.1-43.9); Red Blood Count 3.54 Miln/mm3 (4.50-5.90); White Blood Count 28.6 Thou/mm3 (3.8-10.6)
[2024-01-04 06:25] LABS: Alanine Aminotransferase 27 U/L (10-49); Albumin, Serum 3.3 gm/dL (3.5-5.0); Albumin/Globulin Ratio 0.9 (1.2-2.2); Alkaline Phosphatase 105 U/L (46-116); Anion Gap 9 (7-16); Aspartate Amino Transferase 43 U/L (0-34); BUN/Creatinine Ratio 19 Ratio (12-20); Bilirubin,Total 0.3 mg/dL (0.3-1.2); Blood Urea Nitrogen 33 mg/dL (9-23); Calcium 7.8 mg/dL (8.3-10.6); Calcium (Corrected) 8.4 mg/dL (8.5-10.1); Carbon Dioxide 20.3 mMol/L (20.0-31.0); Chloride 105 mMol/L (98-107); Creatinine (Component) 1.7 mg/dL (0.6-1.3); Estimated Creatinine Clearance 58.2 mL/min (>60); Globulin 3.7 gm/dL (2.3-3.5); Glucose 242 mg/dL (74-106); Magnesium 2.3 mg/dL (1.6-2.6); Osmolality,Calculated 283 (275-295); Phosphorous 3.6 mg/dL (2.4-5.1); Potassium 3.6 mMol/L (3.4-5.1); Sodium 134 mMol/L (136-145); eGFR 51 See Note
[2024-01-04] MEDS: ONDANSETRON INJ 2 MG/ML INJ 2 ML 4 MG IV (06:56)
[2024-01-04] MEDS: FLUCONAZOLE/NS 400 MG IVPB 400 MG/200 ML BAG 100 MG IV (09:01)
[2024-01-04] MEDS: PANTOPRAZOLE INJ 40 MG VIAL IVP (09:01)
[2024-01-04] MEDS: amLODIPine BESYLATE 5 MG TABLET 10 MG PO (09:01)
[2024-01-04] MEDS: HEPARIN SOD INJ 5000 UNIT/ML VIAL SC ×2 (09:02→22:15)
[2024-01-04] MEDS: HYDROcodone/APAP 5/325 TABLET 1 TAB PO ×2 (10:00→21:15)
[2024-01-04] MEDS: POTASSIUM ACET IV ×2 (10:46→22:15)
[2024-01-04] MEDS: AMINO ACID IV (10:46)
[2024-01-04] MEDS: [UNRECOGNIZED DRUG - OTHER] IV (10:46)
[2024-01-04] MEDS: MORPHINE SULF INJ 10 MG/ML VIAL 2 MG IVP (11:23)
--- NOTE | 2024-01-04 12:33 | ESPR_ITS ---
<Statement entered by Michelle Abrams MD - 01/10/24 08:37> Attending attestation: I reviewed above note and agree with findings and plans. I have also personally examined the patient with medicine team and went over assessment and plan with medical team including campus interviews intern and resident physician. <Statement entered by Willie Frias MD - 01/04/24 16:24> Patient started on hydralazine 10 3 times daily for hypertension. Patient still appearing ill, with slightly tense abdomen. But denies any pain on palpation. Sugars elevated started on sliding scale along with Lantus. Spoke with case technician regarding TPN and lowering D5, will speak with pharmacy regarding adjusting dose after sliding scale and Lantus are given. Spoke with Dr. Rubio recommended getting CT abdomen to rule out any abscess as patient still has elevated white count. Fortunately no fevers or chills, but patient on meropenem and fluconazole. ID following patient appreciate recommendations. Case discussed with team. Willie Frias MD PGY3. Documentation for date of: 01/04/24 Subjective Subjective Interval history: Andrew Pyle is a 43-y/o male no significant PMHx presented on 12/21/2023 with epigastric abdominal pain that migrated to RLQ. CT A/P showed acute appendicitis and underwent laparoscopic appendectomy on 12/20. Found to have gangrenous, perforated appendix with free purulent material in abdomen. Medicine team consulted 12/22 for persistent tachycardia, tachypnea, and oxygen requirement. Repeat CT A/P showed small bowel ileus, pneumoperitoneum, and possible abscess formation. Rapid response called for increased shortness of breath on 12/23 and was taken to the OR same night. Found to have small bowel perforation and free fecal material and now status post ileostomy with wound VAC in place. Transferred to ICU for postsurgical monitoring and downgraded on 12/26. Tolerating liquid diet and will advance per surgery recommendations. 12/27: Patient seen and examined at bedside, no acute overnight events. Blood pressure stable, mildly elevated at 149/88. No fevers overnight. Currently on 1 L nasal cannula saturating 94%. Patient appears fatigued but answering questions appropriately. Tolerating full liquid diet. General surgery ordered repeat CT A/P and gave 500 mL normal saline for ANITHA, which is improved from 2.9 to 2.5. Repeat CXR showed resolution of bibasilar pneumonia but significant air in stomach. Colostomy bag in place with wound VAC draining minimal dark green/brown material. 12/28: No acute overnight events. Spiked fever 100.5 overnight WBC increased from 38 to 40. Denies abdominal pain, nausea, vomiting, chills, sweats, shortness of breath. Currently on room air, improved from yesterday. Wound VAC draining appropriately. General surgery ordered abscess drainage. Infectious disease consulted regarding coverage for ventilation associated pneumonia given that patient was intubated in ICU. 12/29: No acute overnight events and no fevers overnight. Status post CT-guided wound drainage with placement of percutaneous drainage catheter. WBC down trended from 40 to 32, continues to deny abdominal pain, nausea, vomiting, chills, sweats, shortness of breath. Continues to be on room air and wound VAC draining appropriately. Tolerating regular diet. 12/30: No acute overnight events. No spiked fevers. Goes back and forth between requiring oxygen and room air. WBC continues to downtrend from 32.8 to 26.3. Patient encouraged to get out of bed and work with physical therapy as tolerated. 12/31: No acute overnight events. No spiked fevers. General surgery placed NG tube the patient removed himself due to discomfort. Surgery plans to close abdominal wound today, patient started on TPN given poor oral intake. Otherwise, patient denies abdominal pain, chest pain, fever, chills. Encouraged patient to use incentive spirometer and to work with physical therapy as much as he can tolerate. 01/01: No acute overnight events. Fever 101.3 F overnight. Underwent secondary closure of abdominal incision, found to have dehiscence without evisceration. At bedside patient denies fever, chills, N/V, abdominal pain but does endorse fatigue. 01/02: No overnight events. Patient seen and assessed at bedside this morning. Patient states to be feeling slightly lightheaded when sitting at bedside. Patient noted to be hypokalemic and have low phosphorus which was repleted. Patient continues on liquid diet and TPN. 01/03: No acute overnight events. Seen at bedside in AM, and patient states that he feels more fatigued. He has worked with physical therapy and is able to walk per patient. Otherwise, denies abdominal pain, nausea, vomiting, fever, chills. Exam Vital Signs Temp Pulse Resp BP Pulse Ox O2 Del Method O2 Flow Rate 98.3 F 110 H 23 H 159/97 H 99 Nasal Cannula 3 01/04/24 08:00 01/04/24 09:01 01/04/24 08:00 01/04/24 09:01 01/04/24 08:00 01/04/24 08:00 01/04/24 08:00 FiO2 35 01/04/24 08:00 Narrative Exam General: AOx3, fatigued, speaking in low-volume voice HEENT: NC/AT, mucous membranes moist, bilateral sclera anicteric Cardiovascular: regular rate and rhythm, S1/S2 present, no murmurs appreciated Pulmonary: Shallow breaths, clear to auscultation bilaterally, no rales/rhonchi/wheezes Abdominal: ileostomy present; abdomen firm, decreased distention from prior; non-tender Musculoskeletal: normal ROM, no peripheral edema Skin: warm and dry, intact, no rashes Neuro: CN II-XII intact, no focal deficits Objective Labs 01/04/24 05:08 01/04/24 05:08 Labs: Laboratory Results - last 24 hr 01/04/24 05:08 WBC 28.6 H RBC 3.54 L Hgb 9.9 L Hct 30.3 L MCV 86 MCH 28.0 MCHC 32.7 RDW Std Deviation 48.5 H Plt Count 628 H D Neut % (Auto) 79 Lymph % (Auto) 5 L [place] % (Auto) 11 Eos % (Auto) 0 Baso % (Auto) 0 Neut # (Auto) 22.6 H Lymph # (Auto) 1.3 [place] # (Auto) 3.1 H Eos # (Auto) 0.1 Baso # (Auto) 0.1 Immature Gran # (Auto) 1.51 H Absolute Nucleated RBC 0.00 Immature Gran % 5 H Nucleated RBC % 0 Sodium 134 L Potassium 3.6 Chloride 105 Carbon Dioxide 20.3 Anion Gap 9 BUN 33 H Creatinine 1.7 H Estim Creat Clear Calc 58.2 L eGFR 51 L BUN/Creatinine Ratio 19 Glucose 242 H Calculated Osmolality 283 Calcium 7.8 L Corrected Calcium 8.4 L Phosphorus 3.6 Magnesium 2.3 Total Bilirubin 0.3 AST 43 H ALT 27 Alkaline Phosphatase 105 D Total Protein 7.0 Albumin 3.3 L Globulin 3.7 H Albumin/Globulin Ratio 0.9 L ABG Interpretation ABG results: 12/21/23 12/24/23 12/25/23 15:50 19:45 02:34 ABG pH 7.40 7.23 L D ABG pCO2 40 56 H D ABG pO2 134 H 229 H D ABG HCO3 25 24 ABG O2 Saturation 99 H 100 H ABG Base Excess 0 -5 L VBG pH 7.48 VBG pCO2 35 L VBG pO2 56 VBG Base Excess 2 12/25/23 12/25/23 12/26/23 04:54 10:48 06:56 ABG pH 7.25 L 7.33 L 7.34 L ABG pCO2 52 H 45 43 ABG pO2 93 D 99 95 ABG HCO3 23 23 23 ABG O2 Saturation 97 98 98 ABG Base Excess -5 L -3 -2 VBG pH VBG pCO2 VBG pO2 VBG Base Excess 12/26/23 10:15 ABG pH 7.36 ABG pCO2 41 ABG pO2 87 ABG HCO3 23 ABG O2 Saturation 98 ABG Base Excess -2 VBG pH VBG pCO2 VBG pO2 VBG Base Excess Quality Measures Quality Measures none Assessment & Plan Assessment Current Active Medications: Generic Name Dose Route Start Last Admin Trade Name Freq PRN Reason Stop Dose Admin Acetaminophen 650 mg 12/31/23 13:25 01/02/24 00:03 Acetaminophen 325 Mg Tablet PO 01/20/24 23:30 650 mg Q6HR PRN Administration Pain (1-3) and FEVER>100.3 Hydrocodone Bitart/Acetaminophen 1 tab 01/04/24 07:35 01/04/24 10:00 Hydrocodone/Apap 5/325 Tablet PO 01/09/24 07:34 1 tab Q6HR PRN Administration PAIN SCALE 4-10(Mod-Sev Amlodipine Besylate 10 mg 01/04/24 09:00 01/04/24 09:01 Amlodipine Besylate 5 Mg Tablet PO 02/03/24 08:59 10 mg QDAY TAL Administration Heparin Sodium (Porcine) 5,000 unit 12/27/23 21:00 01/04/24 09:02 Heparin Sod Inj 5000 Unit/Ml Vial SC 01/10/24 20:59 5,000 unit Q12HR TAL Administration Hydralazine HCl 10 mg 12/28/23 18:00 12/30/23 01:03 Hydralazine Inj 20 Mg/Ml Vial IV 01/27/24 17:59 10 mg Q6H PRN Administration SBP >170 Hydralazine HCl 10 mg 01/04/24 12:15 Hydralazine Hcl 10 Mg Tablet PO 02/03/24 12:14 TID TAL Fluconazole 400 mg in 200 mls @ 100 mls/hr 12/30/23 09:00 01/04/24 09:01 Diflucan/Ns Ivpb IV 01/06/24 08:59 100 mls/hr QDAY TAL Administration Fat Emulsion-[place] Oil/Soybean Oil 500 mls @ 32 mls/hr 01/02/24 18:00 01/02/24 18:10 Clinopid 20% Iv IV 02/01/24 17:59 32 mls/hr MoWeFr TAL Administration Meropenem 1,000 mg/ Sodium 50 mls @ 100 mls/hr 01/03/24 22:00 01/04/24 05:54 Chloride IV 01/10/24 21:59 100 mls/hr Q8HR TAL Administration Potassium Acetate 20 meq/ 1,010 mls @ 100 mls/hr 01/04/24 10:50 01/04/24 10:46 Amino Acids IV 01/04/24 20:55 100 mls/hr QDAY ONE Administration Potassium Acetate 20 meq/ 2,030 mls @ 100 mls/hr 01/04/24 20:56 Multivitamins/Minerals 10 ml/ IV 01/05/24 17:13 Calcium Gluconate 1 gm/ Amino QDAY ONE Acids Melatonin 3 mg 12/28/23 21:00 01/03/24 21:48 Melatonin 3 Mg Tablet PO 01/27/24 20:59 3 mg HS TAL Administration Ondansetron HCl 4 mg 12/21/23 23:31 01/04/24 06:56 Ondansetron Inj 2 Mg/Ml Inj 2 Ml IV 01/20/24 23:30 4 mg Q4HR PRN Administration NAUSEA OR VOMITING Pantoprazole Sodium 40 mg 01/01/24 09:00 01/04/24 09:01 Pantoprazole Inj 40 Mg Vial IVP 01/31/24 08:59 40 mg QDAY TAL Administration Protocol Plan Andrew Pyle is a 43-y/o male no significant PMHx presented on 12/21/2023 with epigastric abdominal pain that migrated to RLQ. CT A/P showed acute appendicitis and underwent laparoscopic appendectomy on 12/20. Found to have gangrenous, perforated appendix with free purulent material in abdomen. Medicine team consulted 12/22 for persistent tachycardia, tachypnea, and oxygen requirement. Repeat CT A/P showed small bowel ileus, pneumoperitoneum, and possible abscess formation. Rapid response called for increased shortness of breath on 12/23 and was taken to the OR same night. Found to have small bowel perforation and free fecal material and now status post ileostomy with wound VAC in place. Transferred to ICU for postsurgical monitoring and downgraded on 12/26. Tolerating liquid diet and will advance per surgery recommendations. #Appendicitis, status-post appendectomy 12/20 #Small bowel perforation #Septic shock, resolved #S/p ileostomy 12/24 #Peritonitis #Subcapsular abscess 12/20, laparoscopic appendectomy 12/24, ex lap and closure of distal stump of ileum and diverting ileostomy and peritoneal lavage 12/28, CT-guided percutaneous drainage catheter placed for right subphrenic abscess 12/31, secondary closure of abdominal incision HCV and HIV nonreactive. Sputum, blood, and urine culture negative. PT recommends rehab placement for skilled therapy services. -Infectious disease consulted -Fluconazole (12/25-) -Zosyn 2.25 g q8h (12/28-01/02) -> meropenem (01/02-) -Consulted by general surgery -Advance diet per surgery -Encourage incentive spirometer, physical therapy, out of bed as tolerated -On TPN given poor oral intake -Monitor closely for sepsis or abscess formation in abdomen -Follow-up abdominal XR #Acute hypoxic respiratory failure, improving #Pneumonia right lung Extubated and downgraded from ICU on 12/26 -Meropenem 1 g IV every 8 hours -Incentive spirometry -Wean off oxygen as tolerated #Hyperglycemia A1c 5.8%. Although no history of diabetes, patient recently started on TPN with uptrending fasting glucose. AM glucose: 160 -> 198 -> 242. Spoke to dietitian and recommended starting patient on insulin regimen. If fasting glucose remains high will change TPN. -Glargine 10 units daily -Sensitive SSI every 6 hours -Monitor morning glucose #Acute kidney injury, improving -Strict I/O -Creatinine continues to improve -Avoid nephrotoxins and renally dose medications #Hypertension -Amlodipine 10 mg PO daily -Hydralazine 10 mg IV as needed #Normocytic anemia Likely in setting of recent surgery and IV hydration. No signs of active bleeding. -Monitor [facility] Hospital management: Diet: Regular Lines: central, ileostomy present DVT prophylaxis: Heparin SC GI prophylaxis: Pantoprazole 40 mg IV daily CODE STATUS: full code ----- Plan discussed with attending physician Dr. Aliza Bryant MD PGY-1 Internal Medicine
[2024-01-04] MEDS: hydrALAZINE HCL 10 MG TABLET PO ×2 (12:42→22:15)
--- NOTE | 2024-01-04 13:36 | XR_ITS ---
Examination: Abdomen 2 views Technique one AP upright AP supine abdomen 2 views Exam date and time: January 04, 2024 1649 hrs. Indications: Abdomen distention today. Findings: Air and fluid present within moderately distended stomach Moderate stool throughout the colon No definite obstruction Ostomy projects in the right abdomen Impression: Nonobstructive bowel gas pattern
--- NOTE | 2024-01-04 13:46 | PD.SURPROG ---
Documentation for date of: 01/04/24 Subjective Subjective Brief History: As above Narrative: Patient is still uncomfortable and seems to be slightly distended. His respiratory rate is still high Exam Vital Signs Temp Pulse Resp BP Pulse Ox O2 Del Method O2 Flow Rate 97.8 F 105 H 27 H 150/101 H 99 Nasal Cannula 3 01/04/24 12:00 01/04/24 12:42 01/04/24 12:00 01/04/24 12:42 01/04/24 12:00 01/04/24 12:00 01/04/24 12:00 FiO2 35 01/04/24 12:00 His vital signs revealed his heart rate is gone up to 105. The respiratory rate is 27 and his blood pressure is elevated patient is not hungry and is not eating Routine Abdominal Exam Comments: Abdomen shows mild distention with no active bowel sounds. Ileostomy however is draining Results Results: Laboratory Laboratory Narrative: Patient's WBC still elevated around 28,000 Assessment & Plan Assessment Additional comments: Impression: Persistent abdominal distention Pneumonia on the right base with atelectasis causing respiratory difficulty Plan Plan: Will order an abdominal x-ray to see if there is ileus. Patient may still have an intra-abdominal problem like abscess. Procedures Procedures Secondary closure of the abdominal incision
[2024-01-04] MEDS: INSULIN GLARGINE (Lantus) 5 UNIT/0.05 ML (PER 5 UNITS) 10 UNIT SC (15:13)
--- NOTE | 2024-01-04 15:53 | XR_ITS ---
Examination: CT abdomen and pelvis without contrast. Coronal 3-D reconstructions. Sagittal 2-D reconstructions. Date and time of exam:January 04, 2024 1928 hrs. Indications: Recent exploratory laparotomy, distended abdomen, history acute appendicitis CTDI: vol (mGy): 10.7 DLP: (mGycm): 652 Technique: Axial images of the abdomen have been obtained, 3 mm slice thickness Intravenous contrast material has not been administered. Low dose protocols were performed. One or more of the following dose reduction techniques were used; automated exposure control, adjustment of the mA and/or KV according to patient size, use of iterative reconstruction technique. Findings: Mild right minimal left pleural fluid Pneumonia right base Pneumoperitoneum Mild free fluid in the abdomen No gallstones No liver mass Kidneys appear enlarged and edematous No renal or ureteral calculi Increased density in the peritoneum consistent with peritonitis Small fat-containing umbilical hernia Right ostomy No bowel obstruction Urinary bladder intact Impression: Significant pneumonia right base Mild free fluid around the below the liver and throughout the abdomen Kidneys appear enlarged and edematous, consider pyelonephritis Increased density in the peritoneal fat consistent with diffuse peritonitis
[2024-01-04] MEDS: INSULIN LISPRO (AdmeLOG) 1 UNIT/0.01 ML UNIT SC (18:14)
--- NOTE | 2024-01-04 19:17 | ESPR_ITS ---
Documentation for date of: 01/04/24 Subjective Subjective Brief History: As above Narrative: The patient is still experiencing tachypnea with respiratory rate around 30. He also is complaining of some difficulty in breathing. His abdomen is essentially unchanged. His bowel sounds are absent. He does not have any appetite Exam Vital Signs Temp Pulse Resp BP Pulse Ox O2 Del Method O2 Flow Rate 98.0 F 102 H 21 H 149/89 H 97 Nasal Cannula 3 01/04/24 16:00 01/04/24 16:00 01/04/24 16:00 01/04/24 16:00 01/04/24 16:00 01/04/24 16:00 01/04/24 16:00 FiO2 35 01/04/24 16:00 His vital signs are normal but heart rate is around 100 and respiratory rate is between 25 and 30 Results Results: Imaging Imaging narrative: I ordered a CT scan of the abdomen to look for any collection. There is some fluid around the liver and in the peritoneum which may be secondary to the recent peritonitis following a leak as well as ruptured appendicitis. He has a considerable pneumonia on the right base Assessment & Plan Assessment Additional comments: Impression: Persistent infection both in the lung and possibly in the peritoneum Plan Plan: We shall explore the possibility of draining some of this fluid by the radiologist. An abscess needs to be ruled out even though this does not look like an abscess. I explained the situation clearly to the patient and his using an diesel mechanic helper for about 30 minutes. I also gave the option of transfer hematuria another hospital like [place] if he needs any further surgery or care. But he does not require higher level of care other than another surgical consultation Procedures Procedures Secondary closure of the abdominal incision
[2024-01-04] MEDS: MELATONIN 3 MG TABLET PO (21:15)
[2024-01-04] MEDS: CALCIUM GLUCONATE IV (22:15)
[2024-01-04] MEDS: [UNRECOGNIZED DRUG - OTHER] IV (22:15)
[2024-01-04] MEDS: MULTIVITAMIN IV (22:15)
[2024-01-05] VITALS (23 sets, daily range): BP systolic 136–180; BP diastolic 90–117; PULSE 85–133; RESP 21–40; TEMP 36.3–38.8; O2SAT 96–99; BMI 34.9; BMI 12.0
[2024-01-05] MEDS: INSULIN LISPRO (AdmeLOG) 1 UNIT/0.01 ML UNIT SC ×4 (00:05→17:47)
[2024-01-05] MEDS: ALPRazoLAM 0.25 MG TABLET 0.5 MG PO (00:06)
[2024-01-05] MEDS: hydrALAZINE HCL 10 MG TABLET PO ×3 (05:26→21:08)
[2024-01-05] MEDS: MEROPENEM INJ 1,000 MG in SODIUM CHLORIDE 0.9% (P) 50 ML 100 MG IV ×3 (05:26→21:08)
--- NOTE | 2024-01-05 05:42 | PC.NURSE ---
DR. RAJAN CALLED IN. UPDATE GIVEN. STATED XANAX WAS GIVEN FOR RESTLESSNESS. +TACHYPNEA, TACHYCARDIA. NO NAUSEA OR FEVER.
[2024-01-05 06:06] LABS: Basophils # (Auto) 0.1 Thou/mm3 (0.0-0.2); Basophils % (Auto) 0 % (0-2.5); Eosinophils # (Auto) 0.1 Thou/mm3 (0.0-0.5); Eosinophils % (Auto) 0 % (0-10); Hematocrit 27.2 % (41.0-53.0); Immature Granulocytes % (Auto) 5 % (0-0); Immature Granulocytes Auto 1.45 Thou/mm3 (0.00-0.00); Lymphocytes # (Auto) 1.8 Thou/mm3 (1.0-4.8); Lymphocytes % (Auto) 6 % (10-50); Mean Corpuscular Hemoglobin 28.1 pg (25.0-35.0); Mean Corpuscular Volume 88 fL (80-100); Monocytes # (Auto) 3.5 Thou/mm3 (0.0-0.8); Monocytes % (Auto) 12 % (0-12); Neutrophils # (Auto) 23.3 Thou/mm3 (1.8-7.7); Neutrophils % (Auto) 77 % (37-80); Nucleated Red Blood Cell % 0 /100 WBC (0); Platelet Count 550 Thou/mm3 (140-440); RDW Standard Deviation 49.9 fL (35.1-43.9); White Blood Count 30.2 Thou/mm3 (3.8-10.6)
[2024-01-05 06:13] LABS: Hemoglobin 8.7 g/dL (13.5-16.0)
[2024-01-05 06:26] LABS: Alanine Aminotransferase 29 U/L (10-49); Albumin, Serum 3.3 gm/dL (3.5-5.0); Albumin/Globulin Ratio 0.9 (1.2-2.2); Alkaline Phosphatase 124 U/L (46-116); Anion Gap 8 (7-16); Aspartate Amino Transferase 35 U/L (0-34); BUN/Creatinine Ratio 24 Ratio (12-20); Bilirubin,Total 0.3 mg/dL (0.3-1.2); Blood Urea Nitrogen 39 mg/dL (9-23); Calcium 8.2 mg/dL (8.3-10.6); Calcium (Corrected) 8.8 mg/dL (8.5-10.1); Carbon Dioxide 21.1 mMol/L (20.0-31.0); Chloride 105 mMol/L (98-107); Creatinine (Component) 1.6 mg/dL (0.6-1.3); Estimated Creatinine Clearance 61.7 mL/min (>60); Globulin 3.6 gm/dL (2.3-3.5); Glucose 172 mg/dL (74-106); Osmolality,Calculated 281 (275-295); Potassium 3.8 mMol/L (3.4-5.1); Sodium 134 mMol/L (136-145); Total Protein 6.9 gm/dL (5.7-8.2); eGFR 55 See Note
[2024-01-05] MEDS: HYDROcodone/APAP 5/325 TABLET 1 TAB PO ×2 (07:40→16:18)
--- NOTE | 2024-01-05 07:50 | XR_ITS ---
Examination: AP chest single view Technique one AP portable sitting chest single view Exam date and time: 0818 hours Comparison January 03, 2024 INDICATIONS: Tachypnea today. FINDINGS: Significant right base pneumonia Small right pleural effusion Right internal jugular central line tip SVC satisfactory position Mild prominence cardiac contour Mild vascular congestion IMPRESSION: Significant right base pneumonia
--- NOTE | 2024-01-05 07:58 | CHAP ---
Responded to the Rapid Response at 07:46. Unable to give help because they were Sammarinese speaking. Referred them to the Spiritual care volunteer.
--- NOTE | 2024-01-05 08:05 | PD.RESEVENT ---
Documentation for date of: 01/05/24 Event Note Event Note: Rapid response called at approximately 7:30 AM for tachypnea, tachycardia and hypertension. BP 160/99, HR 124, RR 36. Otherwise, patient afebrile continue to be on 90% 2 L NC. During rapid, patient did endorse some shortness of breath but did not have any other complaints. Left lung clear to auscultation, right lung mild coarse lung sounds in right base. Spoke to Dr. Ramirez, general surgeon, who reviewed labs, vitals, imaging and stated that patient has been tachypneic and tachycardic throughout most of patient's hospital stay. He will reach out to IR for possible abscess drainage and will curbside consult automobile mechanic for possible bronchoscopy. Labs and imaging ordered includes CBC, CMP, lactate, ABG, blood culture, chest x-ray.
[2024-01-05 08:17] LABS: Lactate (Lactic Acid) 1.1 mMol/L (0.4-2.0)
[2024-01-05 08:20] LABS: Basophils # (Auto) 0.1 Thou/mm3 (0.0-0.2); Basophils % (Auto) 0 % (0-2.5); Eosinophils # (Auto) 0.1 Thou/mm3 (0.0-0.5); Eosinophils % (Auto) 0 % (0-10); Hematocrit 28.2 % (41.0-53.0); Hemoglobin 9.1 g/dL (13.5-16.0); Immature Granulocytes % (Auto) 5 % (0-0); Immature Granulocytes Auto 1.43 Thou/mm3 (0.00-0.00); Lymphocytes # (Auto) 1.5 Thou/mm3 (1.0-4.8); Lymphocytes % (Auto) 5 % (10-50); Mean Corpuscular HGB Conc 32.3 g/dl (31.0-37.0); Mean Corpuscular Hemoglobin 27.6 pg (25.0-35.0); Mean Corpuscular Volume 86 fL (80-100); Monocytes # (Auto) 3.2 Thou/mm3 (0.0-0.8); Monocytes % (Auto) 11 % (0-12); Neutrophils % (Auto) 78 % (37-80); Nucleated Red Blood Cell % 0 /100 WBC (0); Platelet Count 425 Thou/mm3 (140-440); White Blood Count 29.4 Thou/mm3 (3.8-10.6)
[2024-01-05 08:28] LABS: Base Excess -3 (-3-3); HCO3 22 mEq/L (20-26); Inspired O2, VO2 Liters 6 L/min; O2 Saturation 96 % (91-98); PCO2 38 mmHg (32.0-48.0); PO2 75 mmHg (83-108); pH, Arterial 7.37 (7.35-7.45)
[2024-01-05 08:31] LABS: Allen Test Performed/OK; Puncture Site Right Radial
[2024-01-05 08:39] LABS: Alanine Aminotransferase 27 U/L (10-49); Albumin, Serum 3.3 gm/dL (3.5-5.0); Albumin/Globulin Ratio 0.9 (1.2-2.2); Alkaline Phosphatase 127 U/L (46-116); Anion Gap 7 (7-16); Aspartate Amino Transferase 43 U/L (0-34); BUN/Creatinine Ratio 24 Ratio (12-20); Bilirubin,Total 0.3 mg/dL (0.3-1.2); Blood Urea Nitrogen 39 mg/dL (9-23); Calcium 8.1 mg/dL (8.3-10.6); Calcium (Corrected) 8.7 mg/dL (8.5-10.1); Carbon Dioxide 21.1 mMol/L (20.0-31.0); Chloride 106 mMol/L (98-107); Creatinine (Component) 1.6 mg/dL (0.6-1.3); Estimated Creatinine Clearance 61.7 mL/min (>60); Globulin 3.8 gm/dL (2.3-3.5); Glucose 169 mg/dL (74-106); Osmolality,Calculated 281 (275-295); Potassium 3.8 mMol/L (3.4-5.1); Sodium 134 mMol/L (136-145); Total Protein 7.1 gm/dL (5.7-8.2); eGFR 55 See Note
[2024-01-05] MEDS: FLUCONAZOLE/NS 400 MG IVPB 400 MG/200 ML BAG 100 MG IV (09:12)
[2024-01-05] MEDS: PANTOPRAZOLE INJ 40 MG VIAL IVP (09:12)
[2024-01-05] MEDS: amLODIPine BESYLATE 5 MG TABLET 10 MG PO (09:13)
--- NOTE | 2024-01-05 09:17 | PD.SURPROG ---
Documentation for date of: 01/05/24 Subjective Subjective Brief History: As above Narrative: Rapid response was called on this patient this morning because of tachycardia with a heart rate around 140/min. But the patient responded well Exam Vital Signs Temp Pulse Resp BP Pulse Ox O2 Del Method O2 Flow Rate 98.6 F 114 H 40 H 148/92 H 98 Nasal Cannula 2 01/05/24 08:00 01/05/24 09:13 01/05/24 08:00 01/05/24 09:13 01/05/24 08:00 01/05/24 08:00 01/05/24 08:00 FiO2 35 01/05/24 08:00 His vital signs are normal other than the tachycardia of 114 when I saw him around 8:00. Patient denies any abdominal pain but he still breathing fast Routine Abdominal Exam Comments: Abdominal examination is unchanged. It is silent abdomen with drainage in the ileostomy Results Results: Laboratory Laboratory Narrative: Laboratory workup showed increasing WBC to 30,000 Assessment & Plan Assessment Additional comments: Impression: Unexplained tachycardia Tachypnea Persistent pneumonia right base Plan Plan: We shall attempt to drain some fluid from the abdomen to see if it is only fluid or abscess. Dr. Caceres strongly feels it is only some peritoneal fluid and no abscess. However a diagnostic tap may be helpful. Meanwhile I have discussed with the casino games dealer to look at the lung whether he needs bronchoscopy. Procedures Procedures Secondary closure of the abdominal incision
--- NOTE | 2024-01-05 09:20 | XR_ITS ---
Examination: CT-guided percutaneous aspiration. Fluid CT abdomen without intravenous contrast Date and time of procedure: December 28, 2023 1327 hours INDICATIONS: Postop abdominal surgery with fluid in the abdomen including along the right paracolic gutter Informed consent provided. A timeout was completed verifying correct patient, procedure, site and positioning. Technique: Axial 3 mm sections were obtained for localization of the free fluid in the right abdomen Appropriate area is marked. The patient's site was prepped and draped in sterile fashion Maximal sterile barrier technique utilized, including hand hygiene Local anesthesia was obtained with 1% lidocaine. Low dose protocols were performed. One or more of the following dose reduction techniques were used; automated exposure control, adjustment of the mA and/or KV according to patient size, use of iterative reconstruction technique. Utilizing CT fluoroscopic guidance 5 [place] catheter placed in the pleural fluid 300 cc turbid fluid removed At completion of the procedure, the patient is in satisfactory condition. Estimated blood loss 0 cc Complete culture report to follow. Impression: Successful CT-guided percutaneous catheter drainage peritoneal fluid
[2024-01-05] MEDS: INSULIN GLARGINE (Lantus) 5 UNIT/0.05 ML (PER 5 UNITS) 10 UNIT SC (09:51)
[2024-01-05] MEDS: HEPARIN SOD INJ 5000 UNIT/ML VIAL SC ×2 (09:52→20:35)
--- NOTE | 2024-01-05 09:53 | PD.IDPROG ---
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 no need for both. bal in discussion. may be R to merrem if delayed, note that ct abd with rt base pneumonia on 12/27. about a week ago. Exam Vital Signs Temp Pulse Resp BP Pulse Ox O2 Del Method O2 Flow Rate 98.6 F 114 H 40 H 148/92 H 98 Nasal Cannula 2 01/05/24 08:00 01/05/24 09:13 01/05/24 08:00 01/05/24 09:13 01/05/24 08:00 01/05/24 08:00 01/05/24 08:00 FiO2 35 01/05/24 08:00 Narrative Exam pt with stable protuberant abd. primary may want different rx, but there is no known benefit from both merrem and levaquin together Objective - Internal Medicine Labs 01/07/24 05:08 01/07/24 05:08 Labs: Laboratory Results - last 24 hr 01/05/24 01/05/24 01/05/24 05:14 08:05 08:13 WBC 30.2 H 29.4 H RBC 3.10 L 3.30 L Hgb 8.7 L 9.1 L Hct 27.2 L 28.2 L MCV 88 86 MCH 28.1 27.6 MCHC 32.0 32.3 RDW Std Deviation 49.9 H 47.0 H Plt Count 550 H D 425 D Neut % (Auto) 77 78 Lymph % (Auto) 6 L 5 L [place] % (Auto) 12 11 Eos % (Auto) 0 0 Baso % (Auto) 0 0 Neut # (Auto) 23.3 H 23.0 H Lymph # (Auto) 1.8 1.5 [place] # (Auto) 3.5 H 3.2 H Eos # (Auto) 0.1 0.1 Baso # (Auto) 0.1 0.1 Immature Gran # (Auto) 1.45 H 1.43 H Absolute Nucleated RBC 0.00 0.00 Immature Gran % 5 H 5 H Nucleated RBC % 0 0 Puncture Site Right Radial ABG pH 7.37 ABG pCO2 38 ABG pO2 75 L ABG HCO3 22 ABG O2 Saturation 96 ABG Base Excess -3 Oxygen Liter Flow 6 Sodium 134 L 134 L Potassium 3.8 3.8 Chloride 105 106 Carbon Dioxide 21.1 21.1 Anion Gap 8 7 BUN 39 H 39 H Creatinine 1.6 H 1.6 H Estim Creat Clear Calc 61.7 61.7 eGFR 55 L 55 L BUN/Creatinine Ratio 24 H 24 H Glucose 172 H D 169 H Calculated Osmolality 281 281 Lactic Acid 1.1 Calcium 8.2 L 8.1 L Corrected Calcium 8.8 8.7 Phosphorus 3.0 Magnesium 2.0 Total Bilirubin 0.3 0.3 AST 35 H 43 H ALT 29 27 Alkaline Phosphatase 124 H 127 H Total Protein 6.9 7.1 Albumin 3.3 L 3.3 L Globulin 3.6 H 3.8 H Albumin/Globulin Ratio 0.9 L 0.9 L ABG Interpretation ABG results: 12/21/23 12/24/23 12/25/23 15:50 19:45 02:34 ABG pH 7.40 7.23 L D ABG pCO2 40 56 H D ABG pO2 134 H 229 H D ABG HCO3 25 24 ABG O2 Saturation 99 H 100 H ABG Base Excess 0 -5 L VBG pH 7.48 VBG pCO2 35 L VBG pO2 56 VBG Base Excess 2 12/25/23 12/25/23 12/26/23 04:54 10:48 06:56 ABG pH 7.25 L 7.33 L 7.34 L ABG pCO2 52 H 45 43 ABG pO2 93 D 99 95 ABG HCO3 23 23 23 ABG O2 Saturation 97 98 98 ABG Base Excess -5 L -3 -2 VBG pH VBG pCO2 VBG pO2 VBG Base Excess 12/26/23 01/05/24 10:15 08:13 ABG pH 7.36 7.37 ABG pCO2 41 38 ABG pO2 87 75 L ABG HCO3 23 22 ABG O2 Saturation 98 96 ABG Base Excess -2 -3 VBG pH VBG pCO2 VBG pO2 VBG Base Excess Assessment & Plan A&P Narrative abd perforation delayed wound closure done 12/31/23 dm II ckd will f/u regularly. we have exceeded the usual rx regimen and no abscess was found. hope he continues to improve on empiric rx. . it is traditional to add antifungal to abd rx. will see again in a few days. Time Spent With Patient Time: Total time spent is greater than 50% in coordination of care (as documented) at patient's floor/unit and/or counseling patient:
--- NOTE | 2024-01-05 12:58 | ESPR_ITS ---
<Statement entered by Carolann Garrett MD - 01/05/24 13:41> Rapid response was called today in the morning due to tachycardia, upon our evaluation patient heart rate at about 120s, patient is still tachypneic with respiratory rate of 30 and above. Patient is on meropenem, however WBC is around 30s, surgery was called due to rapid response, who stated that he will talk to IR for possible drainage as CT revealed pneumoperitoneum, but no loculated abscess. Pulmonology curbside consulted, who recommended to start on Mucomyst and chest physiotherapy. Will continue closely monitor, initially decision was made to start Levaquin to cover atypical, however ID stated that no need for meropenem and Levaquin and discontinued Levaquin. Patient care was discussed with attending physician Dr. Chris Garrett MD PGY-2 Documentation for date of: 01/05/24 Subjective Subjective Interval history: Andrew Pyle is a 43-year-old male no significant past medical history who presented 12/20 with perforated appendicitis with free purulent material in abdomen. Laparoscopic appendectomy 12/30. Medicine team consulted 12/22. Tachypnea, tachycardia, O2 requirement. Repeat CT A/P showed small bowel ileus, pneumoperitoneum, abscess formation. Went to the OR on 12/23, found to have massive leakage and closure of side of appendectomy with subsequent diverting ileostomy and wound VAC. 12/28, CT-guided percutaneous drainage catheter placed for subphrenic abscess. 12/31 secondary closure of abdominal incision. 12/27: Patient seen and examined at bedside, no acute overnight events. Blood pressure stable, mildly elevated at 149/88. No fevers overnight. Currently on 1 L nasal cannula saturating 94%. Patient appears fatigued but answering questions appropriately. Tolerating full liquid diet. General surgery ordered repeat CT A/P and gave 500 mL normal saline for ANITHA, which is improved from 2.9 to 2.5. Repeat CXR showed resolution of bibasilar pneumonia but significant air in stomach. Colostomy bag in place with wound VAC draining minimal dark green/brown material. 12/28: No acute overnight events. Spiked fever 100.5 overnight WBC increased from 38 to 40. Denies abdominal pain, nausea, vomiting, chills, sweats, shortness of breath. Currently on room air, improved from yesterday. Wound VAC draining appropriately. General surgery ordered abscess drainage. Infectious disease consulted regarding coverage for ventilation associated pneumonia given that patient was intubated in ICU. 12/29: No acute overnight events and no fevers overnight. Status post CT-guided wound drainage with placement of percutaneous drainage catheter. WBC down trended from 40 to 32, continues to deny abdominal pain, nausea, vomiting, chills, sweats, shortness of breath. Continues to be on room air and wound VAC draining appropriately. Tolerating regular diet. 12/30: No acute overnight events. No spiked fevers. Goes back and forth between requiring oxygen and room air. WBC continues to downtrend from 32.8 to 26.3. Patient encouraged to get out of bed and work with physical therapy as tolerated. 12/31: No acute overnight events. No spiked fevers. General surgery placed NG tube the patient removed himself due to discomfort. Surgery plans to close abdominal wound today, patient started on TPN given poor oral intake. Otherwise, patient denies abdominal pain, chest pain, fever, chills. Encouraged patient to use incentive spirometer and to work with physical therapy as much as he can tolerate. 01/01: No acute overnight events. Fever 101.3 F overnight. Underwent secondary closure of abdominal incision, found to have dehiscence without evisceration. At bedside patient denies fever, chills, N/V, abdominal pain but does endorse fatigue. 01/02: No overnight events. Patient seen and assessed at bedside this morning. Patient states to be feeling slightly lightheaded when sitting at bedside. Patient noted to be hypokalemic and have low phosphorus which was repleted. Patient continues on liquid diet and TPN. 01/03: No acute overnight events. Seen at bedside in AM, and patient states that he feels more fatigued. He has worked with physical therapy and is able to walk per patient. Otherwise, denies abdominal pain, nausea, vomiting, fever, chills. 01/04: Rapid response around 7:30 AM for tachypnea, tachycardia. Refer to event note for details. Repeat CBC unchanged, CMP unchanged. ABG showed hypoxia with pO2 75, otherwise unremarkable. Repeat CXR showed significant right base pneumonia. Follow-up repeat sputum and blood cultures. Started Levaquin today, consider starting linezolid if patient spikes fever. Patient also to undergo CT-guided drainage of peritoneal fluid. Exam Vital Signs Temp Pulse Resp BP Pulse Ox O2 Del Method O2 Flow Rate 98.6 F 85 32 H 148/92 H 98 Nasal Cannula 6 01/05/24 08:00 01/05/24 10:01 01/05/24 10:01 01/05/24 09:13 01/05/24 10:01 01/05/24 08:00 01/05/24 10:01 FiO2 35 01/05/24 08:00 Narrative Exam General: AOx3, fatigued, speaking in low-volume voice HEENT: NC/AT, mucous membranes moist, bilateral sclera anicteric Cardiovascular: regular rate and rhythm, S1/S2 present, no murmurs appreciated Pulmonary: Shallow breaths, clear to auscultation bilaterally, no rales/rhonchi/wheezes Abdominal: ileostomy present; abdomen firm, decreased distention from prior; non-tender Musculoskeletal: normal ROM, no peripheral edema Skin: warm and dry, intact, no rashes Neuro: CN II-XII intact, no focal deficits Objective Labs 01/08/24 05:00 01/08/24 05:00 Labs: Laboratory Results - last 24 hr 01/05/24 01/05/24 01/05/24 05:14 08:05 08:13 WBC 30.2 H 29.4 H RBC 3.10 L 3.30 L Hgb 8.7 L 9.1 L Hct 27.2 L 28.2 L MCV 88 86 MCH 28.1 27.6 MCHC 32.0 32.3 RDW Std Deviation 49.9 H 47.0 H Plt Count 550 H D 425 D Neut % (Auto) 77 78 Lymph % (Auto) 6 L 5 L [place] % (Auto) 12 11 Eos % (Auto) 0 0 Baso % (Auto) 0 0 Neut # (Auto) 23.3 H 23.0 H Lymph # (Auto) 1.8 1.5 [place] # (Auto) 3.5 H 3.2 H Eos # (Auto) 0.1 0.1 Baso # (Auto) 0.1 0.1 Immature Gran # (Auto) 1.45 H 1.43 H Absolute Nucleated RBC 0.00 0.00 Immature Gran % 5 H 5 H Nucleated RBC % 0 0 Puncture Site Right Radial ABG pH 7.37 ABG pCO2 38 ABG pO2 75 L ABG HCO3 22 ABG O2 Saturation 96 ABG Base Excess -3 Oxygen Liter Flow 6 Sodium 134 L 134 L Potassium 3.8 3.8 Chloride 105 106 Carbon Dioxide 21.1 21.1 Anion Gap 8 7 BUN 39 H 39 H Creatinine 1.6 H 1.6 H Estim Creat Clear Calc 61.7 61.7 eGFR 55 L 55 L BUN/Creatinine Ratio 24 H 24 H Glucose 172 H D 169 H Calculated Osmolality 281 281 Lactic Acid 1.1 Calcium 8.2 L 8.1 L Corrected Calcium 8.8 8.7 Phosphorus 3.0 Magnesium 2.0 Total Bilirubin 0.3 0.3 AST 35 H 43 H ALT 29 27 Alkaline Phosphatase 124 H 127 H Total Protein 6.9 7.1 Albumin 3.3 L 3.3 L Globulin 3.6 H 3.8 H Albumin/Globulin Ratio 0.9 L 0.9 L ABG Interpretation ABG results: 12/21/23 12/24/23 12/25/23 15:50 19:45 02:34 ABG pH 7.40 7.23 L D ABG pCO2 40 56 H D ABG pO2 134 H 229 H D ABG HCO3 25 24 ABG O2 Saturation 99 H 100 H ABG Base Excess 0 -5 L VBG pH 7.48 VBG pCO2 35 L VBG pO2 56 VBG Base Excess 2 12/25/23 12/25/23 12/26/23 04:54 10:48 06:56 ABG pH 7.25 L 7.33 L 7.34 L ABG pCO2 52 H 45 43 ABG pO2 93 D 99 95 ABG HCO3 23 23 23 ABG O2 Saturation 97 98 98 ABG Base Excess -5 L -3 -2 VBG pH VBG pCO2 VBG pO2 VBG Base Excess 12/26/23 01/05/24 10:15 08:13 ABG pH 7.36 7.37 ABG pCO2 41 38 ABG pO2 87 75 L ABG HCO3 23 22 ABG O2 Saturation 98 96 ABG Base Excess -2 -3 VBG pH VBG pCO2 VBG pO2 VBG Base Excess Quality Measures Quality Measures none Assessment & Plan Assessment Current Active Medications: Generic Name Dose Route Start Last Admin Trade Name Freq PRN Reason Stop Dose Admin Acetaminophen 650 mg 12/31/23 13:25 01/02/24 00:03 Acetaminophen 325 Mg Tablet PO 11/12/24 23:30 650 mg Q6HR PRN Administration Pain (1-3) and FEVER>100.3 Hydrocodone Bitart/Acetaminophen 1 tab 01/04/24 07:35 01/05/24 07:40 Hydrocodone/Apap 5/325 Tablet PO 01/09/24 07:34 1 tab Q6HR PRN Administration PAIN SCALE 4-10(Mod-Sev Amlodipine Besylate 10 mg 01/04/24 09:00 01/05/24 09:13 Amlodipine Besylate 5 Mg Tablet PO 02/03/24 08:59 10 mg QDAY TAL Administration Dextrose 25 ml 01/04/24 14:37 Dextrose 50%-Water Inj 50 Ml Syringe IV 02/03/24 14:36 Q15MIN PRN BG 50-70 responsive npo pt Dextrose 50 ml 01/04/24 14:37 Dextrose 50%-Water Inj 50 Ml Syringe IV 02/03/24 14:36 Q15MIN PRN BG <50 OR BG <70 & pt unresponsive Glucagon 1 mg 01/04/24 14:37 Glucagon Inj 1 Mg Vial IM Q15MIN PRN BG <70, and no IV access Heparin Sodium (Porcine) 5,000 unit 12/27/23 21:00 01/05/24 09:52 Heparin Sod Inj 5000 Unit/Ml Vial SC 01/10/24 20:59 5,000 unit Q12HR TAL Administration Hydralazine HCl 10 mg 12/28/23 18:00 12/30/23 01:03 Hydralazine Inj 20 Mg/Ml Vial IV 01/27/24 17:59 10 mg Q6H PRN Administration SBP >170 Hydralazine HCl 10 mg 01/04/24 12:15 01/05/24 05:26 Hydralazine Hcl 10 Mg Tablet PO 02/03/24 12:14 10 mg TID TAL Administration Fluconazole 400 mg in 200 mls @ 100 mls/hr 12/30/23 09:00 01/05/24 09:12 Diflucan/Ns Ivpb IV 01/06/24 08:59 100 mls/hr QDAY TAL Administration Fat Emulsion-[place] Oil/Soybean Oil 500 mls @ 32 mls/hr 01/02/24 18:00 01/02/24 18:10 Clinopid 20% Iv IV 02/01/24 17:59 32 mls/hr MoWeFr TAL Administration Meropenem 1,000 mg/ Sodium 50 mls @ 100 mls/hr 01/03/24 22:00 01/05/24 05:26 Chloride IV 01/10/24 21:59 100 mls/hr Q8HR TAL Administration Potassium Acetate 20 meq/ 2,030 mls @ 100 mls/hr 01/04/24 20:56 01/04/24 22:15 Multivitamins/Minerals 10 ml/ IV 01/05/24 17:13 100 mls/hr Calcium Gluconate 1 gm/ Amino QDAY ONE Administration Acids Insulin Glargine 10 unit 01/04/24 14:45 01/05/24 09:51 Insulin Glargine (Lantus) 5 Unit/0.05 Ml (Per 5 Units) SC 02/03/24 14:44 10 unit QDAY TAL Administration Insulin Human Lispro 0 unit 01/04/24 18:00 01/05/24 12:08 Insulin Lispro (Admelog) 1 Unit/0.01 Ml Unit SC 02/03/24 17:59 2 unit Q6HR TAL Administration Protocol Melatonin 3 mg 12/28/23 21:00 01/04/24 21:15 Melatonin 3 Mg Tablet PO 01/27/24 20:59 3 mg HS TAL Administration Ondansetron HCl 4 mg 12/21/23 23:31 01/04/24 06:56 Ondansetron Inj 2 Mg/Ml Inj 2 Ml IV 01/20/24 23:30 4 mg Q4HR PRN Administration NAUSEA OR VOMITING Pantoprazole Sodium 40 mg 01/01/24 09:00 01/05/24 09:12 Pantoprazole Inj 40 Mg Vial IVP 01/31/24 08:59 40 mg QDAY TAL Administration Protocol Plan Andrew Pyle is a 43-year-old male no significant past medical history who presented 12/20 with perforated appendicitis with free purulent material in abdomen. Laparoscopic appendectomy 12/30. Medicine team consulted 12/22. Tachypnea, tachycardia, O2 requirement. Repeat CT A/P showed small bowel ileus, pneumoperitoneum, abscess formation. Went to the OR on 12/23, found to have massive leakage and closure of side of appendectomy with subsequent diverting ileostomy and wound VAC. 12/28, CT-guided percutaneous drainage catheter placed for subphrenic abscess. 12/31 secondary closure of abdominal incision. #Appendicitis, status-post appendectomy 12/20 #Small bowel perforation #Septic shock, resolved #S/p ileostomy 12/24 #Peritonitis #Subcapsular abscess 12/20, laparoscopic appendectomy 12/24, ex lap and closure of distal stump of ileum and diverting ileostomy and peritoneal lavage 12/28, CT-guided percutaneous drainage catheter placed for right subphrenic abscess 12/31, secondary closure of abdominal incision 01/04, CT-guided percutaneous drainage catheter placed with removal 300 cc turbid fluid -Infectious disease consulted -Fluconazole (12/25-) -Zosyn 2.25 g q8h (12/28-01/02) -> meropenem (01/02-) -Given levofloxacin, ID recommends against levofloxacin and meropenem combination -Consulted by general surgery -On TPN given poor oral intake -Encourage incentive spirometer, physical therapy, out of bed as tolerated -Monitor closely for sepsis or abscess formation in abdomen -Follow-up repeat blood culture and repeat blood culture from central line ports -Follow-up sputum culture, peritoneal fluid culture #Acute hypoxic respiratory failure, improving #Pneumonia right lung Extubated and downgraded from ICU on 12/26. Curbside consult with pulmonology, recommends chest physiotherapy, PT, and IR. -Meropenem, levofloxacin, and fluconazole as above -Chest physiotherapy -Incentive spirometry -Wean off oxygen as tolerated #Hyperglycemia A1c 5.8%. Although no history of diabetes, patient recently started on TPN with uptrending fasting glucose. AM glucose: 160 -> 198 -> 242. Spoke to dietitian and recommended starting patient on insulin, which patient has responded to. -Glargine 10 units daily -Sensitive SSI every 6 hours -Monitor morning glucose #Acute kidney injury, improving -Strict I/O -Creatinine continues to improve -Avoid nephrotoxins and renally dose medications #Hypertension -Amlodipine 10 mg PO daily -Hydralazine 10 mg IV as needed #Normocytic anemia Likely in setting of recent surgery and IV hydration. No signs of active bleeding. -Monitor [facility] management: Diet: TPN and regular diet Lines: central, ileostomy present DVT prophylaxis: Heparin SC GI prophylaxis: Pantoprazole 40 mg IV daily CODE STATUS: full code ----- Plan discussed with attending physician Dr. Chris Bryant MD PGY-1 Internal Medicine Attending Provider Attestation/Addendum Face to face evaluation was performed by me. I have personally seen and examined the patient. I discussed the assessment and plan with the entire medicine team. I reviewed available medical records, imaging studies, laboratory results. I agree with the above subjective data, objective findings, assessment and plan except as corrected by me or noted below #Appendicitis, status-post appendectomy 12/20 #Small bowel perforation #Septic shock, resolved #S/p ileostomy 12/24 #Peritonitis #Possible Subcapsular abscess - IV meropenem broad spectrum abxs - ID consulted. will follow recs, gave dose of levofloxacin for now, obtain cultures, consider MRSA coverage if not improving or spiking fevers. IR for abdominal fluid aspiration - fluid to be sent for culture Gen Surgery Dr Rubio following, discussed with shasha the plan, he was also surprised that patient has not been improving
[2024-01-05] MEDS: CALCIUM GLUCONATE IV (17:30)
[2024-01-05] MEDS: POTASSIUM ACET IV (17:30)
[2024-01-05] MEDS: FAT EMUL/OLIVE/SOY/PHOS 20% IV 500 ML 32 ML IV (17:30)
[2024-01-05] MEDS: [UNRECOGNIZED DRUG - OTHER] IV (17:30)
[2024-01-05] MEDS: ACETAMINOPHEN 500 MG TABLET 1000 MG PO (18:24)
--- NOTE | 2024-01-05 20:15 | PC.NURSE ---
Notified Dr Rubio of patient temperature of 100.3, RR of 34, and HR in 120's, and diaphoretic. Provider stated to continue to monitor patient but if patients worsens to move to ICU. Provider will let Hospitalist, Dr. Raman, know of patient condition.
[2024-01-05] MEDS: MELATONIN 3 MG TABLET PO (20:35)
[2024-01-05] MEDS: LABETALOL INJ 5 MG/ML VIAL 20 ML 10 MG IVP (22:46)
[2024-01-06] VITALS (54 sets, daily range): BP systolic 124–188; BP diastolic 60–117; PULSE 63–122; RESP 19–42; TEMP 36.3–37.1; O2SAT 78–100; BMI 36.0
--- NOTE | 2024-01-06 00:10 | PC.NURSE ---
NOTIFIED HOSPITALIST DR WHATLEY OF PATIENT BP OF 161/117 AFTER GIVING LABETALOL PRN WITH A BP OF 180/92 AT THAT TIME, PROVIDER ORDERED METOPROLOL 25 MG PO X1
[2024-01-06] MEDS: INSULIN LISPRO (AdmeLOG) 1 UNIT/0.01 ML UNIT SC ×3 (00:19→13:42)
[2024-01-06] MEDS: METOPROLOL TARTRATE 25 MG TABLET PO (00:20)
[2024-01-06] MEDS: MEROPENEM INJ 1,000 MG in SODIUM CHLORIDE 0.9% (P) 50 ML 100 MG IV ×3 (06:01→23:23)
[2024-01-06] MEDS: hydrALAZINE HCL 10 MG TABLET PO (06:02)
[2024-01-06 06:12] LABS: Basophils # (Auto) 0.1 Thou/mm3 (0.0-0.2); Basophils % (Auto) 0 % (0-2.5); Eosinophils # (Auto) 0.1 Thou/mm3 (0.0-0.5); Eosinophils % (Auto) 0 % (0-10); Immature Granulocytes % (Auto) 5 % (0-0); Immature Granulocytes Auto 1.44 Thou/mm3 (0.00-0.00); Lymphocytes # (Auto) 1.7 Thou/mm3 (1.0-4.8); Lymphocytes % (Auto) 6 % (10-50); Mean Corpuscular HGB Conc 33.1 g/dl (31.0-37.0); Mean Corpuscular Hemoglobin 28.2 pg (25.0-35.0); Mean Corpuscular Volume 85 fL (80-100); Monocytes # (Auto) 3.4 Thou/mm3 (0.0-0.8); Monocytes % (Auto) 11 % (0-12); Neutrophils # (Auto) 24.2 Thou/mm3 (1.8-7.7); Neutrophils % (Auto) 78 % (37-80); Nucleated Red Blood Cell % 0 /100 WBC (0); Platelet Count 767 Thou/mm3 (140-440); RDW Standard Deviation 46.5 fL (35.1-43.9); Red Blood Count 3.05 Miln/mm3 (4.50-5.90)
[2024-01-06 06:16] LABS: Hemoglobin 8.6 g/dL (13.5-16.0)
[2024-01-06 06:59] LABS: Alanine Aminotransferase 26 U/L (10-49); Albumin, Serum 3.2 gm/dL (3.5-5.0); Albumin/Globulin Ratio 0.9 (1.2-2.2); Alkaline Phosphatase 170 U/L (46-116); Anion Gap 9 (7-16); Aspartate Amino Transferase 40 U/L (0-34); BUN/Creatinine Ratio 27 Ratio (12-20); Bilirubin,Total 0.3 mg/dL (0.3-1.2); Blood Urea Nitrogen 41 mg/dL (9-23); Calcium 8.5 mg/dL (8.3-10.6); Calcium (Corrected) 9.1 mg/dL (8.5-10.1); Carbon Dioxide 20.3 mMol/L (20.0-31.0); Chloride 102 mMol/L (98-107); Creatinine (Component) 1.5 mg/dL (0.6-1.3); Globulin 3.6 gm/dL (2.3-3.5); Glucose 168 mg/dL (74-106); Magnesium 1.8 mg/dL (1.6-2.6); Osmolality,Calculated 276 (275-295); Phosphorous 2.7 mg/dL (2.4-5.1); Potassium 3.8 mMol/L (3.4-5.1); Sodium 131 mMol/L (136-145); Total Protein 6.8 gm/dL (5.7-8.2); eGFR 59 See Note
[2024-01-06] MEDS: HYDROcodone/APAP 5/325 TABLET 1 TAB PO (07:30)
[2024-01-06] MEDS: INSULIN GLARGINE (Lantus) 5 UNIT/0.05 ML (PER 5 UNITS) 10 UNIT SC (09:18)
[2024-01-06] MEDS: PANTOPRAZOLE INJ 40 MG VIAL IVP (09:19)
[2024-01-06] MEDS: HEPARIN SOD INJ 5000 UNIT/ML VIAL SC ×2 (09:19→22:08)
[2024-01-06] MEDS: amLODIPine BESYLATE 5 MG TABLET 10 MG PO (09:19)
[2024-01-06] MEDS: ALPRazoLAM 0.25 MG TABLET 0.5 MG PO (09:28)
[2024-01-06] MEDS: DOXYCYCLINE INJ 100 MG in SODIUM CHLORIDE 0.9% (P) 100 ML IV ×2 (10:41→22:07)
[2024-01-06] MEDS: carVEDILOL 3.125 MG TABLET 6.25 MG PO (10:43)
--- NOTE | 2024-01-06 12:44 | ESPR_ITS ---
<Statement entered by Michelle Abrams MD - 01/10/24 08:40> Attending attestation: I reviewed above note and agree with findings and plans. I have also personally examined the patient with medicine team and went over assessment and plan with medical team including legal summer intern and resident physician. <Statement entered by Carolann Garrett MD - 01/06/24 14:32> Patient seen and examined. Patient still tachycardic and tachypneic, BP is running high, we added Coreg to 6.25 for BP control, discontinued hydralazine to avoid tachycardia. Patient is on fluconazole and meropenem, we added doxycycline to cover MRSA and atypicals. Surgery is on board, will follow-up. Further recommendations. I personally saw and examined the patient and discussed the assessment and plan with the entire medicine team, including my attending DrStarr , Carolann Garrett M.D. PGY-2 Disclaimer: Despite multiple revisions, due to the dictation software being used, the document bellow may not be free of grammatical errors including phonetic/typographic errors. However, this does not deter from our commitment to providing health care in the patient's best interest in mind. Documentation for date of: 01/06/24 Subjective Subjective Interval history: Andrew Pyle is a 43-year-old male no significant past medical history who presented 12/20 with perforated appendicitis with free purulent material in abdomen. Laparoscopic appendectomy 12/30. Medicine team consulted 12/22. Tachypnea, tachycardia, O2 requirement. Repeat CT A/P showed small bowel ileus, pneumoperitoneum, abscess formation. Went to the OR on 12/23, found to have massive leakage and closure of side of appendectomy with subsequent diverting ileostomy and wound VAC. 12/28, CT-guided percutaneous drainage catheter placed for subphrenic abscess. 12/31 secondary closure of abdominal incision. 12/27: Patient seen and examined at bedside, no acute overnight events. Blood pressure stable, mildly elevated at 149/88. No fevers overnight. Currently on 1 L nasal cannula saturating 94%. Patient appears fatigued but answering questions appropriately. Tolerating full liquid diet. General surgery ordered repeat CT A/P and gave 500 mL normal saline for ANITHA, which is improved from 2.9 to 2.5. Repeat CXR showed resolution of bibasilar pneumonia but significant air in stomach. Colostomy bag in place with wound VAC draining minimal dark green/brown material. 12/28: No acute overnight events. Spiked fever 100.5 overnight WBC increased from 38 to 40. Denies abdominal pain, nausea, vomiting, chills, sweats, shortness of breath. Currently on room air, improved from yesterday. Wound VAC draining appropriately. General surgery ordered abscess drainage. Infectious disease consulted regarding coverage for ventilation associated pneumonia given that patient was intubated in ICU. 12/29: No acute overnight events and no fevers overnight. Status post CT-guided wound drainage with placement of percutaneous drainage catheter. WBC down trended from 40 to 32, continues to deny abdominal pain, nausea, vomiting, chills, sweats, shortness of breath. Continues to be on room air and wound VAC draining appropriately. Tolerating regular diet. 12/30: No acute overnight events. No spiked fevers. Goes back and forth between requiring oxygen and room air. WBC continues to downtrend from 32.8 to 26.3. Patient encouraged to get out of bed and work with physical therapy as tolerated. 12/31: No acute overnight events. No spiked fevers. General surgery placed NG tube the patient removed himself due to discomfort. Surgery plans to close abdominal wound today, patient started on TPN given poor oral intake. Otherwise, patient denies abdominal pain, chest pain, fever, chills. Encouraged patient to use incentive spirometer and to work with physical therapy as much as he can tolerate. 01/01: No acute overnight events. Fever 101.3 F overnight. Underwent secondary closure of abdominal incision, found to have dehiscence without evisceration. At bedside patient denies fever, chills, N/V, abdominal pain but does endorse fatigue. 01/02: No overnight events. Patient seen and assessed at bedside this morning. Patient states to be feeling slightly lightheaded when sitting at bedside. Patient noted to be hypokalemic and have low phosphorus which was repleted. Patient continues on liquid diet and TPN. 01/03: No acute overnight events. Seen at bedside in AM, and patient states that he feels more fatigued. He has worked with physical therapy and is able to walk per patient. Otherwise, denies abdominal pain, nausea, vomiting, fever, chills. 01/04: Rapid response around 7:30 AM for tachypnea, tachycardia. Refer to event note for details. Repeat CBC unchanged, CMP unchanged. ABG showed hypoxia with pO2 75, otherwise unremarkable. Repeat CXR showed significant right base pneumonia. Follow-up repeat sputum and blood cultures. Started Levaquin today, consider starting linezolid if patient spikes fever. Patient also to undergo CT-guided drainage of peritoneal fluid. 01/05: No acute overnight events. Spiked fever at 6 PM 01/04 over 101.5 ?F. Remains tachycardic and tachypneic now on 2 L she would have 5 nasal cannula saturating 99%. Patient appears to be more fatigued today and abdomen remains firm. Attempted thoracentesis but US did not reveal significant pleural fluid and patient was not able to tolerate sitting position. General surgery and pulmonology/senior investment manager spoke to family and discussed possibility of bringing patient back to OR for bowel decompression/irrigation. Risks and benefits thoroughly discussed with family who were present. Family to make a decision whether or not to pursue with procedure today. Exam Vital Signs Temp Pulse Resp BP Pulse Ox O2 Del Method O2 Flow Rate 98.1 F 117 H 25 H 173/110 H 98 Humidified Nasal Cannula 4 01/06/24 08:00 01/06/24 10:43 01/06/24 08:00 01/06/24 10:43 01/06/24 08:00 01/06/24 08:00 01/06/24 08:00 FiO2 35 01/05/24 20:00 Narrative Exam General: AOx3, fatigued, speaking in low-volume voice HEENT: NC/AT, mucous membranes moist, bilateral sclera anicteric Cardiovascular: regular rate and rhythm, S1/S2 present, no murmurs appreciated Pulmonary: Shallow and rapid breaths; mild wheezing appreciated Abdominal: ileostomy present; abdomen firm, distended; non-tender Musculoskeletal: normal ROM, no peripheral edema Skin: warm and dry, intact, no rashes Neuro: CN II-XII intact, no focal deficits Objective Labs 01/06/24 04:55 01/06/24 04:55 Labs: Laboratory Results - last 24 hr 01/06/24 04:55 WBC 31.0 H RBC 3.05 L Hgb 8.6 L Hct 26.0 L MCV 85 MCH 28.2 MCHC 33.1 RDW Std Deviation 46.5 H Plt Count 767 H D Neut % (Auto) 78 Lymph % (Auto) 6 L [place] % (Auto) 11 Eos % (Auto) 0 Baso % (Auto) 0 Neut # (Auto) 24.2 H Lymph # (Auto) 1.7 [place] # (Auto) 3.4 H Eos # (Auto) 0.1 Baso # (Auto) 0.1 Immature Gran # (Auto) 1.44 H Absolute Nucleated RBC 0.00 Immature Gran % 5 H Nucleated RBC % 0 Sodium 131 L Potassium 3.8 Chloride 102 Carbon Dioxide 20.3 Anion Gap 9 BUN 41 H Creatinine 1.5 H Estim Creat Clear Calc 67.0 eGFR 59 L BUN/Creatinine Ratio 27 H Glucose 168 H Calculated Osmolality 276 Calcium 8.5 Corrected Calcium 9.1 Phosphorus 2.7 Magnesium 1.8 Total Bilirubin 0.3 AST 40 H ALT 26 Alkaline Phosphatase 170 H D Total Protein 6.8 Albumin 3.2 L Globulin 3.6 H Albumin/Globulin Ratio 0.9 L ABG Interpretation ABG results: 12/21/23 12/24/23 12/25/23 15:50 19:45 02:34 ABG pH 7.40 7.23 L D ABG pCO2 40 56 H D ABG pO2 134 H 229 H D ABG HCO3 25 24 ABG O2 Saturation 99 H 100 H ABG Base Excess 0 -5 L VBG pH 7.48 VBG pCO2 35 L VBG pO2 56 VBG Base Excess 2 12/25/23 12/25/23 12/26/23 04:54 10:48 06:56 ABG pH 7.25 L 7.33 L 7.34 L ABG pCO2 52 H 45 43 ABG pO2 93 D 99 95 ABG HCO3 23 23 23 ABG O2 Saturation 97 98 98 ABG Base Excess -5 L -3 -2 VBG pH VBG pCO2 VBG pO2 VBG Base Excess 12/26/23 01/05/24 10:15 08:13 ABG pH 7.36 7.37 ABG pCO2 41 38 ABG pO2 87 75 L ABG HCO3 23 22 ABG O2 Saturation 98 96 ABG Base Excess -2 -3 VBG pH VBG pCO2 VBG pO2 VBG Base Excess Quality Measures Quality Measures none Assessment & Plan Assessment Current Active Medications: Generic Name Dose Route Start Last Admin Trade Name Freq PRN Reason Stop Dose Admin Acetaminophen 650 mg 12/31/23 13:25 01/02/24 00:03 Acetaminophen 325 Mg Tablet PO 01/20/24 23:30 650 mg Q6HR PRN Administration Pain (1-3) and FEVER>100.3 Hydrocodone Bitart/Acetaminophen 1 tab 01/04/24 07:35 01/06/24 07:30 Hydrocodone/Apap 5/325 Tablet PO 01/09/24 07:34 1 tab Q6HR PRN Administration PAIN SCALE 4-10(Mod-Sev Amlodipine Besylate 10 mg 01/04/24 09:00 01/06/24 09:19 Amlodipine Besylate 5 Mg Tablet PO 02/03/24 08:59 10 mg QDAY TAL Administration Carvedilol 6.25 mg 01/06/24 10:00 01/06/24 10:43 Carvedilol 3.125 Mg Tablet PO 02/05/24 09:59 6.25 mg BIDWM TAL Administration Dextrose 25 ml 01/04/24 14:37 Dextrose 50%-Water Inj 50 Ml Syringe IV 02/03/24 14:36 Q15MIN PRN BG 50-70 responsive npo pt Dextrose 50 ml 01/04/24 14:37 Dextrose 50%-Water Inj 50 Ml Syringe IV 02/03/24 14:36 Q15MIN PRN BG <50 OR BG <70 & pt unresponsive Glucagon 1 mg 01/04/24 14:37 Glucagon Inj 1 Mg Vial IM Q15MIN PRN BG <70, and no IV access Heparin Sodium (Porcine) 5,000 unit 12/27/23 21:00 01/06/24 09:19 Heparin Sod Inj 5000 Unit/Ml Vial SC 01/10/24 20:59 5,000 unit Q12HR TAL Administration Fat Emulsion-[place] Oil/Soybean Oil 500 mls @ 32 mls/hr 01/02/24 18:00 01/05/24 17:30 Clinopid 20% Iv IV 02/01/24 17:59 32 mls/hr MoWeFr TAL Administration Meropenem 1,000 mg/ Sodium 50 mls @ 100 mls/hr 01/03/24 22:00 01/06/24 06:01 Chloride IV 01/10/24 21:59 100 mls/hr Q8HR TAL Administration Potassium Acetate 30 meq/ 2,025 mls @ 100 mls/hr 01/05/24 17:00 01/05/24 17:30 Calcium Gluconate 1 gm/ Amino IV 01/06/24 13:14 100 mls/hr Acids QDAY@1700 ONE Administration Doxycycline Hyclate 100 mg/ 100 mls @ 100 mls/hr 01/06/24 10:00 01/06/24 10:41 Sodium Chloride IV 01/13/24 09:59 100 mls/hr BID TAL Administration Sodium Phosphate 15 mmol/ 1,009 mls @ 100 mls/hr 01/06/24 13:15 Magnesium Sulfate 2 gm/ Amino IV 01/06/24 23:20 Acids QDAY@1700 ONE Sodium Phosphate 15 mmol/ 2,015 mls @ 100 mls/hr 01/06/24 23:21 Multivitamins/Minerals 10 ml/ IV 01/07/24 19:29 Amino Acids QDAY ONE Insulin Glargine 10 unit 01/04/24 14:45 01/06/24 09:18 Insulin Glargine (Lantus) 5 Unit/0.05 Ml (Per 5 Units) SC 02/03/24 14:44 10 unit QDAY TAL Administration Insulin Human Lispro 0 unit 01/04/24 18:00 01/06/24 06:01 Insulin Lispro (Admelog) 1 Unit/0.01 Ml Unit SC 02/03/24 17:59 2 unit Q6HR TAL Administration Protocol Labetalol HCl 10 mg 01/05/24 19:16 01/05/24 22:46 Labetalol Inj 5 Mg/Ml Vial 20 Ml IVP 02/04/24 19:29 10 mg Q6H PRN Administration SBP >170, DBP>110 Melatonin 3 mg 12/28/23 21:00 01/05/24 20:35 Melatonin 3 Mg Tablet PO 01/27/24 20:59 3 mg HS TAL Administration Ondansetron HCl 4 mg 12/21/23 23:31 01/04/24 06:56 Ondansetron Inj 2 Mg/Ml Inj 2 Ml IV 01/20/24 23:30 4 mg Q4HR PRN Administration NAUSEA OR VOMITING Pantoprazole Sodium 40 mg 01/01/24 09:00 01/06/24 09:19 Pantoprazole Inj 40 Mg Vial IVP 01/31/24 08:59 40 mg QDAY TAL Administration Protocol Catina Pyle is a 43-year-old male no significant past medical history who presented 12/20 with perforated appendicitis with free purulent material in abdomen. Laparoscopic appendectomy 12/30. Medicine team consulted 12/22. Tachypnea, tachycardia, O2 requirement. Repeat CT A/P showed small bowel ileus, pneumoperitoneum, abscess formation. Went to the OR on 12/23, found to have massive leakage and closure of side of appendectomy with subsequent diverting ileostomy and wound VAC. 12/28, CT-guided percutaneous drainage catheter placed for subphrenic abscess. 12/31 secondary closure of abdominal incision. 01/04, CT-guided percutaneous drainage catheter placed with removal of 300 cc turbid fluid. Antibiotic regimen: -Metronidazole (12/22-12/24) -Zosyn (12/20-01/02) -Fluconazole (12/25-01/05) -Meropenem (01/02-) -Doxycycline (01/05-) -Levofloxacin x1 (01/04) #Appendicitis, status-post appendectomy 12/20 #Small bowel perforation #Peritonitis #Subcapsular abscess 12/20, laparoscopic appendectomy 12/24, ex lap and closure of distal stump of ileum and diverting ileostomy and peritoneal lavage 12/28, CT-guided percutaneous drainage catheter placed for right subphrenic abscess 12/31, secondary closure of abdominal incision 01/04, CT-guided percutaneous drainage catheter placed with removal 300 cc turbid fluid -Infectious disease consulted -Fluconazole (12/25-01/05) -Zosyn (12/20-01/02) -> meropenem (01/02-) -Consulted by general surgery -On TPN given poor oral intake -Possible OR tonight, 01/05 for decompression -Doxycycline 100 mg IV BID (01/05) -Follow-up repeat blood culture and repeat blood culture from central line ports -Follow-up sputum culture, peritoneal fluid culture #Acute hypoxic respiratory failure, improving #Pneumonia right lung Extubated and downgraded from ICU on 12/26. Curbside consult with pulmonology, recommends chest physiotherapy, PT, and IR. -Meropenem and doxycycline as above -Chest physiotherapy -Physical therapy, out of bed as tolerated -Incentive spirometry -Wean off oxygen as tolerated #Hyperglycemia A1c 5.8%. No history of diabetes, started on TPN with uptrending fasting glucose. Started on insulin, which patient has responded to. -Glargine 10 units daily -Sensitive SSI every 6 hours -Monitor morning glucose #Acute kidney injury, improving -Strict I/O -Creatinine continues to improve -Avoid nephrotoxins and renally dose medications #Hypertension -Amlodipine 10 mg PO daily -Carvedilol 6.25 mg PO BID #Normocytic anemia Likely in setting of recent surgery and IV hydration. No signs of active bleeding. -Monitor [facility] management: Diet: TPN and regular diet Lines: central, ileostomy present DVT prophylaxis: Heparin SC GI prophylaxis: Pantoprazole 40 mg IV daily CODE STATUS: full code ----- Plan discussed with attending physician Dr. Aliza Bryant MD PGY-1 Internal Medicine
[2024-01-06] MEDS: LEVALBUTEROL RT 1.25 MG/0.5 ML NEBU INH (13:37)
[2024-01-06] MEDS: SODIUM CHLORIDE RT SOL 0.9% 3 ML NEBU INH (13:37)
[2024-01-06] MEDS: MAGNESIUM SULF IV (13:42)
[2024-01-06] MEDS: [UNRECOGNIZED DRUG - OTHER] IV (13:42)
[2024-01-06] MEDS: SOD PHOS ADDITIVE IV (13:42)
[2024-01-06 13:59] LABS: Allen Test Performed/OK; Base Excess -5 (-3-3); HCO3 19 mEq/L (20-26); Inspired O2, VO2 Liters 2 L/min; O2 Saturation 98 % (91-98); PCO2 30 mmHg (32.0-48.0); PO2 90 mmHg (83-108); Puncture Site Right Radial; pH, Arterial 7.42 (7.35-7.45)
--- NOTE | 2024-01-06 16:22 | PC.RT ---
Dr prado aware of ABG results. No new orders at this time.
--- NOTE | 2024-01-06 16:33 | PC.NURSE ---
Called to room by Jess at [phone]. Wanted an explanation regarding plan to perform surgery. Dr. White at bedside explaining to pts , son and family at bedside. All questions anwsered and verbalizes understanding of plan. Risks and benefits explained and allowed for time to make decision
--- NOTE | 2024-01-06 20:18 | ESOP_ITS ---
Date of Procedure 01/06/24 Pre Op Diagnosis Intra-abdominal sepsis following perforation of the appendix and small bowel perforation Post Op Diagnosis Same with no intra-abdominal sepsis Procedure Exploratory laparotomy and drainage of the subcutaneous infection and wound VAC application Findings Patient was found to have purulent material in the subcutaneous tissue which was closed secondarily. Procedure Description Of the patient was brought to the operating room endotracheal anesthesia was given. The ileostomy bag was removed and it was covered with Tegaderm the wound was prepped with Betadine solution and draped in a sterile manner. Timeout was performed. A Villarreal catheter has been inserted. Then I removed the sutures by cutting the previous sutures placed about 6 days ago for secondary closure. Immediately some purulent material was seen which was whitish and not foul- smelling. This was removed and it is just a simple subcutaneous infection in the wound. Then I removed the sutures and the fascia but the abdomen would not open fully because omentum has kind of sealed off entry into the abdomen. I was able to insert my finger and suction tube into the gutters on the right side as well as on the left side but I could not enter into the space about the liver because it was beyond the reach and it was all sealed. At this time I felt that further exploration displacing the sealed up omentum will result in more potential small bowel injury which may be difficult to repair in the situation. Therefore after making sure that there is no more collection I irrigated the wound extensively with saline solution and the left #19 round [place] on the right gutter. Then the wound was closed with wound VAC leaving the fascia completely open. Patient tolerated the procedure well and left operating room in stable condition Anesthesia GETA Pathology / specimen None Estimated Blood Loss 20 Condition Stable Disposition ICU Surgeon James Weiss MD Surgical Staff Operation Date: 01/06/24 19:00 Case Staff SHANK SKINNER: Jude Morales RNseals engraver: Omaira Martinez
--- NOTE | 2024-01-06 20:48 | XR_ITS ---
Examination: AP chest single view Technique one AP portable semiupright chest single view Exam date and time: January 06, 2024 at 2102 hrs. Comparison January 03, 2024 Indications: Hypoxic respiratory failure today post intubation Findings: Tracheal tube is in the right mainstem bronchus Volume loss right lung Orogastric tube in the stomach satisfactory position Right internal jugular central line tip SVC Prominent vascular congestion Impression: Mild heart failure pattern Retract tracheal tube 4 cm
[2024-01-06] MEDS: fentaNYL 2,500 MCG/250 ML BAG 2,500 MCG/250 ML BAG IV (21:00)
[2024-01-06] MEDS: PROPOFOL 1,000 MG IVPB 1,000 MG/100 ML VIAL 2.871 MG IV (21:00)
[2024-01-06 21:53] LABS: Base Excess -7 (-3-3); HCO3 22 mEq/L (20-26); Inspired Oxygen, FIO2 21 %; O2 Saturation 100 % (91-98); PCO2 69 mmHg (32.0-48.0); PO2 261 mmHg (83-108)
[2024-01-06 21:55] LABS: Allen Test Not Performed; Puncture Site Arterial Line; pH, Arterial 7.12 (7.35-7.45)
--- NOTE | 2024-01-06 22:42 | ESCONSULT_ITS ---
HPI Data of Consult Requesting Physician: Michelle Abrams MD Admitting Provider: James Weiss MD Attending Provider: Michelle Abrams MD Primary Care Provider: Nayan Leung MD Consult Narrative History of present illness: 43-year-old male no significant past medical history who presented 12/20 with perforated appendicitis with free purulent material in abdomen, underwent laparoscopic appendectomy 12/20. Medicine team consulted 12/22. tachypnea, tachycardia, increased O2 requirement, repeat CT A/P showed pneumoperitoneum,so he had exploratory laparotomy on 12/23 and was found to have small bowel perforation, washout was performed & subsequent diverting ileostomy and wound VAC. 12/28: CT-guided percutaneous drainage catheter placed for subphrenic abscess. 12/31 underwent secondary closure of abdominal incision. Today patient spiked fever at 6 PM 101.5 ?F, tachycardic and tachypneic requiring 5L O2 nasal cannula saturating 99%. Patient appeared to be more fatigued with firm abdomen, general surgery and pulmonology/camp attendant spoke to family and discussed possibility of bringing patient back to OR for bowel decompression/irrigation, family agreed and patient was taken to the OR. Findings:Purulent material was seen which was whitish and not foul-smelling, sutures removed, irrigated the wound extensively with saline solution and left #19 round [place]We[place] on the right gutter, then the wound was closed with wound VAC leaving the fascia completely open. Patient tolerated the procedure well and left operating room in stable condition. On arrival to ICU patient intubated, hemodinamically stable. cc:: cc: Michelle Abrams MD Review of Systems Review of Systems ROS Unobtainable: unobtainable due to mental status Exam Vital Signs Temp Pulse Resp BP Pulse Ox O2 Del Method O2 Flow Rate 98.2 F 114 H 25 H 145/93 H 98 Humidified Nasal Cannula 2 01/06/24 16:00 01/06/24 16:00 01/06/24 16:00 01/06/24 16:00 01/06/24 16:00 01/06/24 16:00 01/06/24 16:00 FiO2 35 01/05/24 20:00 Results Labs 01/08/24 05:00 01/08/24 05:00 Labs: Short CBC 01/06/24 Range/Units 04:55 WBC 31.0 H (3.8-10.6) Thou/mm3 Hgb 8.6 L (13.5-16.0) g/dL Hct 26.0 L (41.0-53.0) % Plt Count 767 H D (140-440) Thou/mm3 BMP 01/06/24 04:55 Sodium 131 L Potassium 3.8 Chloride 102 Carbon Dioxide 20.3 BUN 41 H Creatinine 1.5 H Glucose 168 H Calcium 8.5 Liver Function 01/06/24 Range/Units 04:55 Total Bilirubin 0.3 (0.3-1.2) mg/dL AST 40 H (0-34) U/L ALT 26 (10-49) U/L Alkaline Phosphatase 170 H D (46-116) U/L Albumin 3.2 L (3.5-5.0) gm/dL ABG Interpretation ABG results: 12/21/23 12/24/23 12/25/23 15:50 19:45 02:34 ABG pH 7.40 7.23 L D ABG pCO2 40 56 H D ABG pO2 134 H 229 H D ABG HCO3 25 24 ABG O2 Saturation 99 H 100 H ABG Base Excess 0 -5 L VBG pH 7.48 VBG pCO2 35 L VBG pO2 56 VBG Base Excess 2 12/25/23 12/25/23 12/26/23 04:54 10:48 06:56 ABG pH 7.25 L 7.33 L 7.34 L ABG pCO2 52 H 45 43 ABG pO2 93 D 99 95 ABG HCO3 23 23 23 ABG O2 Saturation 97 98 98 ABG Base Excess -5 L -3 -2 VBG pH VBG pCO2 VBG pO2 VBG Base Excess 12/26/23 01/05/24 01/06/24 10:15 08:13 13:50 ABG pH 7.36 7.37 7.42 ABG pCO2 41 38 30 L ABG pO2 87 75 L 90 ABG HCO3 23 22 19 L ABG O2 Saturation 98 96 98 ABG Base Excess -2 -3 -5 L VBG pH VBG pCO2 VBG pO2 VBG Base Excess 01/06/24 21:44 ABG pH 7.12 L* D ABG pCO2 69 H D ABG pO2 261 H D ABG HCO3 22 ABG O2 Saturation 100 H ABG Base Excess -7 L VBG pH VBG pCO2 VBG pO2 VBG Base Excess Quality Measures Quality Measures none Medications Home Medications and Allergies Home Medications ?Medication ?Instructions ?Recorded ?Confirmed ?Type No Known Home Medications 12/22/23 12/22/23 History Allergies Allergy/AdvReac Type Severity Reaction Status Date / Time No Known Allergies Allergy Verified 12/21/23 23:25 Visit Medications Acetaminophen (Acetaminophen 325 Mg Tablet) 650 mg PO Q6HR PRN PRN Reason: Pain (1-3) and FEVER>100.3 Stop: 01/20/24 23:30 Last Admin: 01/02/24 00:03 Dose: 650 mg Hydrocodone Bitart/Acetaminophen (Hydrocodone/Apap 5/325 Tablet) 1 tab PO Q6HR PRN PRN Reason: PAIN SCALE 4-10(Mod-Sev Stop: 01/09/24 07:34 Last Admin: 01/06/24 07:30 Dose: 1 tab Amlodipine Besylate (Amlodipine Besylate 5 Mg Tablet) 10 mg PO QDAY TAL Stop: 02/03/24 08:59 Last Admin: 01/06/24 09:19 Dose: 10 mg Carvedilol (Carvedilol 3.125 Mg Tablet) 6.25 mg PO BIDWM TAL Stop: 02/05/24 09:59 Last Admin: 01/06/24 18:11 Dose: Not Given Dextrose (Dextrose 50%-Water Inj 50 Ml Syringe) 25 ml IV Q15MIN PRN PRN Reason: BG 50-70 responsive npo pt Stop: 02/03/24 14:36 Dextrose (Dextrose 50%-Water Inj 50 Ml Syringe) 50 ml IV Q15MIN PRN PRN Reason: BG <50 OR BG <70 & pt unresponsive Stop: 02/03/24 14:36 Glucagon (Glucagon Inj 1 Mg Vial) 1 mg IM Q15MIN PRN PRN Reason: BG <70, and no IV access Heparin Sodium (Porcine) (Heparin Sod Inj 5000 Unit/Ml Vial) 5,000 unit SC Q12HR TAL Stop: 01/10/24 20:59 Last Admin: 01/06/24 22:08 Dose: 5,000 unit Fat Emulsion-[place] Oil/Soybean Oil (Clinopid 20% Iv) 500 mls @ 32 mls/hr IV MoWeFr TAL Stop: 02/01/24 17:59 Last Admin: 01/05/24 17:30 Dose: 32 mls/hr Meropenem 1,000 mg/ Sodium (Chloride) 50 mls @ 100 mls/hr IV Q8HR TAL Stop: 01/10/24 21:59 Last Admin: 01/06/24 13:42 Dose: 100 mls/hr Doxycycline Hyclate 100 mg/ (Sodium Chloride) 100 mls @ 100 mls/hr IV BID TAL Stop: 01/13/24 09:59 Last Admin: 01/06/24 22:07 Dose: 100 mls/hr Sodium Phosphate 15 mmol/Magnesium Sulfate 2 gm/ Amino Acids 1,009 mls @ 100 mls/hr IV QDAY@1700 ONE Stop: 01/06/24 23:20 Last Admin: 01/06/24 13:42 Dose: 100 mls/hr Sodium Phosphate 15 mmol/Multivitamins/Minerals 10 ml/Amino Acids 2,015 mls @ 100 mls/hr IV QDAY ONE Stop: 01/07/24 19:29 Fentanyl Citrate (Sublimaze Inj 2,500 Mcg/250 Ml Bag) 2,500 mcg in 250 mls @ 2.5 mls/hr IV .Q24H PRN; Protocol PRN Reason: PER PROTOCOL Stop: 01/11/24 20:46 Last Admin: 01/06/24 21:00 Dose: 25 mcg/hr, 2.5 mls/hr Propofol (Diprivan Ivpb) 1,000 mg in 100 mls @ 2.871 mls/hr IV .Q24H PRN; Protocol PRN Reason: PER PROTOCOL Stop: 02/05/24 20:47 Last Admin: 01/06/24 21:00 Dose: 5 mcg/kg/min, 2.871 mls/hr Fluconazole (Diflucan/Ns Ivpb) 200 mg in 100 mls @ 100 mls/hr IV QDAY TAL Stop: 01/14/24 08:59 Fluconazole (Diflucan/Ns Ivpb) 200 mg in 100 mls @ 100 mls/hr IV X1 ONE Stop: 01/06/24 22:44 Insulin Glargine (Insulin Glargine (Lantus) 5 Unit/0.05 Ml (Per 5 Units)) 10 unit SC QDAY TAL Stop: 02/03/24 14:44 Last Admin: 01/06/24 09:18 Dose: 10 unit Insulin Human Lispro (Insulin Lispro (Admelog) 1 Unit/0.01 Ml Unit) 0 unit SC Q6HR [facility]; Protocol Stop: 02/03/24 17:59 Last Admin: 01/06/24 18:15 Dose: Not Given Labetalol HCl (Labetalol Inj 5 Mg/Ml Vial 20 Ml) 10 mg IVP Q6H PRN PRN Reason: SBP >170, DBP>110 Stop: 02/04/24 19:29 Last Admin: 01/05/24 22:46 Dose: 10 mg Melatonin (Melatonin 3 Mg Tablet) 3 mg PO HS TAL Stop: 01/27/24 20:59 Last Admin: 01/06/24 21:59 Dose: Not Given Ondansetron HCl (Ondansetron Inj 2 Mg/Ml Inj 2 Ml) 4 mg IV Q4HR PRN PRN Reason: NAUSEA OR VOMITING Stop: 01/20/24 23:30 Last Admin: 01/04/24 06:56 Dose: 4 mg Pantoprazole Sodium (Pantoprazole Inj 40 Mg Vial) 40 mg IVP QDAY [facility]; Protocol Stop: 01/31/24 08:59 Last Admin: 01/06/24 09:19 Dose: 40 mg Sodium Chloride (Sodium Chloride Rt [place] 0.9% 3 Ml Nebu) 3 ml INH PRN PRN PRN Reason: SOLN Stop: 02/05/24 13:03 Last Admin: 01/06/24 13:37 Dose: 3 ml Discontinued Medications Acetaminophen (Acetaminophen 325 Mg Tablet) 650 mg PO Q6HR PRN PRN Reason: [id number] Stop: 01/20/24 23:30 Acetaminophen (Acetaminophen 325 Mg Tablet) 650 mg PO Q6HR PRN PRN Reason: FEVER>101.5 Stop: 01/20/24 23:30 Last Admin: 12/29/23 01:13 Dose: 650 mg Acetaminophen (Acetaminophen 500 Mg Tablet) 1,000 mg PO X1 ONE Stop: 01/05/24 18:08 Last Admin: 01/05/24 18:24 Dose: 1,000 mg Hydrocodone Bitart/Acetaminophen (Hydrocodone/Apap 5/325 Tablet) 1 tab PO X1 ONE Stop: 12/21/23 15:44 Last Admin: 12/21/23 15:50 Dose: 1 tab Hydrocodone Bitart/Acetaminophen (Hydrocodone/Apap 5/325 Tablet) 1 tab PO Q4HR PRN PRN Reason: PAIN Stop: 12/27/23 22:06 Acetylcysteine (Acetylcysteine Rt [place] 10% 4 Ml Nebu) 3 ml INH Q4HRRT TAL Stop: 02/04/24 10:59 Alprazolam (Alprazolam 0.25 Mg Tablet) 0.5 mg PO X1 ONE Stop: 01/05/24 00:02 Last Admin: 01/05/24 00:06 Dose: 0.5 mg Alprazolam (Alprazolam 0.25 Mg Tablet) 0.5 mg PO X1 ONE Stop: 01/06/24 07:58 Last Admin: 01/06/24 09:28 Dose: 0.5 mg Amlodipine Besylate (Amlodipine Besylate 5 Mg Tablet) 5 mg PO QDAY TAL Stop: 02/02/24 13:44 Last Admin: 01/03/24 13:41 Dose: 5 mg Amlodipine Besylate (Amlodipine Besylate 5 Mg Tablet) 5 mg PO X1 ONE Stop: 01/03/24 17:23 Last Admin: 01/03/24 17:41 Dose: 5 mg Benzocaine (Benzocaine 20% (Hurricaine) [place] 1 Dose) 1 dose TOP X1 ONE Stop: 12/24/23 17:32 Last Admin: 12/24/23 18:29 Dose: 1 dose Benzocaine (Benzocaine 20% (Hurricaine) [place] 1 Dose) 1 dose TOP X1 ONE Stop: 12/31/23 18:16 Last Admin: 12/31/23 19:33 Dose: 1 dose Benzocaine (Benzocaine 20% (Hurricaine) [place] 1 Dose) 0 dose TOP X1 ONE Stop: 12/31/23 18:35 Last Admin: 12/31/23 19:33 Dose: 1 dose Bisacodyl (Bisacodyl 10 Mg Supp) 10 mg DC X1 ONE; Protocol Stop: 12/24/23 15:10 Last Admin: 12/24/23 15:43 Dose: 10 mg Carvedilol (Carvedilol 3.125 Mg Tablet) 3.125 mg PO BIDWM TAL Stop: 02/05/24 17:29 Carvedilol (Carvedilol 3.125 Mg Tablet) 6.25 mg PO BIDWM [facility] Stop: 02/05/24 17:29 Fentanyl Citrate (Fentanyl Cit Inj 50 Mcg/Ml Amp 2ml) 50 mcg IV Q5M PRN PRN Reason: PAIN SCALE 4-6 (Moderate Stop: 12/22/23 00:28 Fentanyl Citrate (Fentanyl Cit Inj 50 Mcg/Ml Amp 2ml) 75 mcg IVP X1 ONE Stop: 12/25/23 00:47 Last Admin: 12/25/23 01:01 Dose: 75 mcg Fentanyl Citrate (Fentanyl Cit Inj 50 Mcg/Ml Amp 2ml) 50 mcg IVP X1 ONE Stop: 01/01/24 12:39 Last Admin: 01/01/24 12:39 Dose: 50 mcg Fentanyl Citrate (Fentanyl Cit Inj 50 Mcg/Ml Amp 2ml) 50 mcg IV Q5MIN PRN PRN Reason: PAIN SCALE 4-10(Mod-Sev Stop: 01/01/24 18:55 Furosemide (Furosemide Inj 10 Mg/Ml 4ml Vial) 40 mg IVP X1 ONE Stop: 12/24/23 19:39 Last Admin: 12/24/23 20:17 Dose: 40 mg Heparin Sodium (Beef Lung) (Heparin Sod Lock Syr 100 Unit/Ml) 500 unit [place] X1 ONE Stop: 01/01/24 12:00 Last Admin: 01/01/24 12:00 Dose: 500 unit Heparin Sodium (Porcine) (Heparin Sod Inj 5000 Unit/Ml Vial) 5,000 unit SC Q8HR [facility] Stop: 01/07/24 05:59 Last Admin: 12/27/23 05:09 Dose: 5,000 unit Hydralazine HCl (Hydralazine Inj 20 Mg/Ml Vial) 10 mg IV Q6H PRN PRN Reason: SBP >170 Stop: 01/27/24 17:59 Last Admin: 12/30/23 01:03 Dose: 10 mg Hydralazine HCl (Hydralazine Hcl 10 Mg Tablet) 10 mg PO TID [facility] Stop: 02/03/24 12:14 Last Admin: 01/06/24 06:02 Dose: 10 mg Hydromorphone HCl (Hydromorphone Inj 2 Mg/Ml Vial) 2 mg IVP X1 ONE Stop: 12/25/23 08:17 Last Admin: 12/25/23 08:29 Dose: 2 mg Hydromorphone HCl (Hydromorphone Inj 2 Mg/Ml Vial) 2 mg IVP X1 ONE Stop: 12/26/23 13:17 Last Admin: 12/26/23 13:21 Dose: 2 mg Hydromorphone HCl (Hydromorphone Inj 2 Mg/Ml Vial) 1 mg IVP X1 ONE Stop: 12/27/23 13:54 Last Admin: 12/27/23 14:09 Dose: 1 mg Lactated Ringer's (Lactated Ringers) 1,000 mls @ 1,000 mls/hr IV .Q1H ONE Stop: 12/21/23 18:17 Last Infusion: 12/21/23 18:45 Dose: Infused Sodium Chloride (Ns) 1,000 mls @ 999 mls/hr IV .Q1H1M ONE Stop: 12/21/23 20:06 Last Infusion: 12/21/23 21:17 Dose: Infused Piperacillin/Tazobactam/Dextrose (Zosyn) 3.375 gm in 50 mls @ 100 mls/hr IV X1 ONE Stop: 12/21/23 19:35 Last Infusion: 12/21/23 20:15 Dose: Infused Sodium Chloride (Ns) 1,000 mls @ 100 mls/hr IV .Q10H [facility] Stop: 01/20/24 20:44 Last Admin: 12/25/23 20:43 Dose: Not Given Acetaminophen (Ofirmev Inj) 1,000 mg in 100 mls @ 250 mls/hr IV Q6HR PRN PRN Reason: PAIN SCALE 4-10(Mod-Sev Stop: 12/24/23 22:27 Last Admin: 12/23/23 07:27 Dose: 250 mls/hr Sodium Chloride (Ns) 1,000 mls @ 125 mls/hr IV .Q8H [facility] Stop: 01/20/24 23:30 Last Admin: 12/25/23 06:26 Dose: Not Given Piperacillin Sod/Tazobactam (Sod 4.5 gm/ Sodium Chloride) 100 mls @ 25 mls/hr IV Q8HR [facility] Stop: 12/29/23 09:00 Last Admin: 12/29/23 05:47 Dose: 25 mls/hr Metronidazole (Flagyl 500 Mg Iv) 500 mg in 100 mls @ 200 mls/hr IV Q8HR TAL Stop: 12/30/23 18:25 Last Infusion: 12/25/23 07:29 Dose: Infused Fentanyl Citrate (Sublimaze Inj 2,500 Mcg/250 Ml Bag) 2,500 mcg in 250 mls @ 2.5 mls/hr IV .Q24H PRN; Protocol PRN Reason: PER PROTOCOL Stop: 12/29/23 23:49 Last Titration: 12/26/23 10:40 Dose: 0 mcg/hr, 0 mls/hr Propofol (Diprivan Ivpb) 1,000 mg in 100 mls @ 2.735 mls/hr IV .Q24H PRN; Protocol PRN Reason: PER PROTOCOL Stop: 01/23/24 23:49 Last Titration: 12/25/23 01:00 Dose: Infused Sodium Chloride (Ns) 1,000 mls @ 100 mls/hr IV .Q10H ONE Stop: 12/25/23 09:52 Last Infusion: 12/25/23 07:30 Dose: 0 mls/hr Dexmedetomidine/Sodium Chloride (Precedex Ivpb) 400 mcg in 100 mls @ 4.559 mls/hr IV .[id number] PRN; Protocol PRN Reason: Per PROTOCOL Stop: 01/24/24 00:45 Last Titration: 12/25/23 07:10 Dose: 0 mcg/kg/hr, 0 mls/hr Norepinephrine/Dextrose (Levophed In D5w 8mg/250ml) 8 mg in 250 mls @ 8.547 mls/hr IV .Q24H PRN; Protocol PRN Reason: PER PROTOCOL Stop: 01/24/24 03:13 Last Titration: 12/25/23 12:25 Dose: 0 mcg/kg/min, 0 mls/hr Sodium Chloride (Ns) 1,000 mls @ 999 mls/hr IV .Q1H1M ONE Stop: 12/25/23 04:21 Last Infusion: 12/25/23 07:30 Dose: Infused Propofol (Diprivan Ivpb) 1,000 mg in 100 mls @ 2.436 mls/hr IV .Q24H PRN; Protocol PRN Reason: PER PROTOCOL Stop: 01/24/24 07:10 Last Titration: 12/26/23 09:00 Dose: Infused Lactated Ringer's (Lactated Ringers) 1,000 mls @ 999 mls/hr IV .Q1H1M ONE Stop: 12/25/23 08:17 Last Infusion: 12/25/23 08:38 Dose: Infused Lactated Ringer's (Lactated Ringers) 500 mls @ 999 mls/hr IV .Q31M ONE Stop: 12/25/23 09:35 Last Infusion: 12/25/23 10:40 Dose: Infused Micafungin Sodium 50 mg/ (Sodium Chloride) 100 mls @ 100 mls/hr IV QDAY TAL Stop: 01/09/24 11:01 Last Admin: 12/26/23 10:11 Dose: 100 mls/hr Calcium Gluconate/Sodium Chloride (Calcium Gluc/Ns 1000mg Ivpb) 1,000 mg in 50 mls @ 50 mls/hr IV X1 ONE Stop: 12/25/23 12:59 Last Infusion: 12/25/23 14:05 Dose: Infused Lactated Ringer's (Lactated Ringers) 500 mls @ 999 mls/hr IV .Q31M ONE Stop: 12/25/23 16:02 Last Infusion: 12/25/23 16:43 Dose: Infused Albumin Human (Albuminar-25 Ivpb) 12.5 gm in 50 mls @ 50 mls/hr IV X1 ONE Stop: 12/25/23 17:31 Last Admin: 12/25/23 17:03 Dose: Not Given Albumin Human (Albuminar-5 Ivpb) 12.5 gm in 250 mls @ 100 mls/hr IV X1 ONE Stop: 12/25/23 19:30 Last Admin: 12/25/23 17:26 Dose: 100 mls/hr Calcium Gluconate/Sodium Chloride (Calcium Gluc/Ns 1000mg Ivpb) 1,000 mg in 50 mls @ 50 mls/hr IV X1 ONE Stop: 12/26/23 09:21 Last Admin: 12/26/23 10:11 Dose: 50 mls/hr Lactated Ringer's (Lactated Ringers) 1,000 mls @ 200 mls/hr IV .Q5H ONE Stop: 12/26/23 15:34 Last Admin: 12/26/23 11:58 Dose: 200 mls/hr Fluconazole (Diflucan/Ns Ivpb) 400 mg in 200 mls @ 100 mls/hr IV QDAY TAL Stop: 12/30/23 10:56 Last Admin: 12/29/23 08:43 Dose: 100 mls/hr Sodium Chloride (Ns) 1,000 mls @ 75 mls/hr IV .[id number] ONE Stop: 12/28/23 20:59 Last Admin: 12/28/23 09:16 Dose: 75 mls/hr Sodium Chloride (Ns) 500 mls @ 999 mls/hr IV .Q31M ONE Stop: 12/28/23 11:35 Last Admin: 12/28/23 11:14 Dose: 999 mls/hr Piperacillin/Tazobactam/Dextrose (Zosyn) 2.25 gm in 50 mls @ 12.5 mls/hr IV Q8HR TAL Stop: 01/05/24 10:59 Last Admin: 01/03/24 13:35 Dose: 12.5 mls/hr Fluconazole (Diflucan/Ns Ivpb) 400 mg in 200 mls @ 100 mls/hr IV QDAY TAL Stop: 01/06/24 08:59 Last Infusion: 01/05/24 19:46 Dose: Infused Potassium Chloride (Kcl Ivpb) 10 meq in 100 mls @ 100 mls/hr IV Q1H TAL Stop: 01/01/24 12:29 Last Admin: 01/01/24 16:35 Dose: Not Given Potassium Acetate 70 meq/Calcium Gluconate 1 gm/Thiamine HCl 100 mg/Multivitamins/Minerals 10 ml/Amino Acids 2,056 mls @ 40 mls/hr IV QDAY@1800 ONE Stop: 01/02/24 17:59 Last Admin: 01/01/24 18:34 Dose: 40 mls/hr Promethazine HCl 12.5 mg/ (Sodium Chloride) 50.5 mls @ 2.5 mls/min IV X1 PRN PRN Reason: NAUSEA OR VOMITING Stop: 01/01/24 18:55 Sodium Chloride (Ns) 1,000 mls @ 100 mls/hr IV .Q10H ONE Stop: 01/02/24 04:44 Last Admin: 01/01/24 20:02 Dose: 100 mls/hr Potassium Acetate 40 meq/Calcium Gluconate 1 gm/Thiamine HCl 100 mg/Multivitamins/Minerals 10 ml/Amino Acids 2,041 mls @ 100 mls/hr IV QDAY@1800 ONE Stop: 01/03/24 14:24 Last Admin: 01/02/24 18:10 Dose: 100 mls/hr Potassium Acetate 50 meq/Sodium Phosphate 30 mmol/Multivitamins/Minerals 10 ml/Magnesium Sulfate 4 gm/ Amino Acids 2,053 mls @ 100.588 mls/hr IV QDAY ONE Stop: 01/04/24 10:49 Last Infusion: 01/04/24 10:49 Dose: 0 mls/hr Potassium Acetate 20 meq/ (Amino Acids) 1,010 mls @ 100 mls/hr IV QDAY ONE Stop: 01/04/24 20:55 Last Infusion: 01/05/24 19:48 Dose: Infused Potassium Acetate 20 meq/Multivitamins/Minerals 10 ml/Calcium Gluconate 1 gm/ Amino Acids 2,030 mls @ 100 mls/hr IV QDAY ONE Stop: 01/05/24 17:13 Last Infusion: 01/05/24 19:48 Dose: Infused Levofloxacin/Dextrose (Levaquin Ivpb) 750 mg in 150 mls @ 100 mls/hr IV QDAY TAL Stop: 01/12/24 08:59 Last Admin: 01/05/24 10:37 Dose: Not Given Potassium Acetate 30 meq/Calcium Gluconate 1 gm/ Amino Acids 2,025 mls @ 100 mls/hr IV QDAY@1700 ONE Stop: 01/06/24 13:14 Last Admin: 01/05/24 17:30 Dose: 100 mls/hr Influenza Virus Vaccine Quadrival (Influenza Virus Quadrivalent 0.5 Ml Syringe) 0.5 ml IMi .ONCE ONE Stop: 12/22/23 00:02 Ketorolac Tromethamine (Ketorolac Inj 60 Mg/2 Ml Vial) 30 mg IM X1 ONE Stop: 12/21/23 15:42 Last Admin: 12/21/23 15:51 Dose: 30 mg Ketorolac Tromethamine (Ketorolac Inj 30 Mg/Ml Vial) 30 mg IVP Q6HR PRN PRN Reason: PAIN 1-6 (mild-mod Stop: 12/26/23 23:30 Ketorolac Tromethamine (Ketorolac Inj 30 Mg/Ml Vial) 30 mg IVP Q6HR PRN PRN Reason: PAIN SCALE 1-3 (mild Stop: 12/26/23 23:30 Last Admin: 12/26/23 21:18 Dose: 30 mg Levalbuterol HCl (Levalbuterol Rt 1.25 Mg/0.5 Ml Nebu) 1.25 mg INH X1 ONE Stop: 01/06/24 13:05 Last Admin: 01/06/24 13:37 Dose: 1.25 mg Lidocaine HCl (Lidocaine Viscous 2% 15 Ml Udc) 15 ml PO X1 ONE Stop: 12/31/23 20:58 Last Admin: 12/31/23 21:10 Dose: 15 ml Lidocaine HCl (Lidocaine Inj Pf 1% 30 Ml Vial) 7 ml INFL X1 ONE Stop: 01/01/24 12:00 Last Admin: 01/01/24 12:00 Dose: 7 ml Lidocaine HCl (Lidocaine Inj Pf 1% 30 Ml Vial) 5 ml INFL X1 ONE Stop: 01/01/24 12:39 Last Admin: 01/01/24 12:40 Dose: 5 ml Lorazepam (Lorazepam 0.5 Mg Tablet) 1 mg PO X1 PRN PRN Reason: ANXIETY Stop: 01/04/24 13:43 Last Admin: 12/30/23 15:02 Dose: 1 mg Meperidine HCl (Meperidine Inj 50 Mg/Ml Vial) 12.5 mg IV Q5M PRN PRN Reason: SHIVERING Stop: 01/06/24 16:53 Metoprolol Tartrate (Metoprolol Tartrate 25 Mg Tablet) 25 mg PO X1 ONE Stop: 01/06/24 00:12 Last Admin: 01/06/24 00:20 Dose: 25 mg Midazolam HCl (Midazolam Inj 1 Mg/Ml Vial 2 Ml) 1 mg IV Q5MIN PRN PRN Reason: ANXIETY Stop: 01/02/24 16:53 Morphine Sulfate (Morphine Sulf Inj 10 Mg/Ml Vial) 4 mg IVP X1 ONE Stop: 12/21/23 17:19 Last Admin: 12/21/23 17:22 Dose: 4 mg Morphine Sulfate (Morphine Sulf Inj 10 Mg/Ml Vial) 5 mg IVP Q4HR PRN PRN Reason: PAIN SCALE 4-10(Mod-Sev Stop: 12/26/23 23:54 Last Admin: 12/23/23 04:43 Dose: 5 mg Morphine Sulfate (Morphine Sulf Inj 10 Mg/Ml Vial) 3 mg IVP X1 ONE Stop: 12/22/23 15:59 Last Admin: 12/22/23 16:14 Dose: 3 mg Morphine Sulfate (Morphine Sulf Inj 10 Mg/Ml Vial) 5 mg IVP Q4HR PRN PRN Reason: PAIN SCALE 4-10(Mod-Sev Stop: 12/26/23 23:54 Last Admin: 12/24/23 09:06 Dose: 5 mg Morphine Sulfate (Morphine Sulf Inj 10 Mg/Ml Vial) 1 mg IVP Q3H PRN PRN Reason: PAIN Stop: 12/28/23 20:41 Morphine Sulfate (Morphine Sulf Inj 10 Mg/Ml Vial) 5 mg IVP Q4HR PRN PRN Reason: PAIN SCALE 4-10(Mod-Sev Stop: 12/26/23 23:54 Last Admin: 12/25/23 00:25 Dose: 5 mg Morphine Sulfate (Morphine Sulf Inj 10 Mg/Ml Vial) 2 mg IVP Q6HR PRN PRN Reason: PAIN SCALE 7-10 Stop: 01/03/24 11:22 Last Admin: 01/01/24 10:37 Dose: 2 mg Morphine Sulfate (Morphine Sulf Inj 10 Mg/Ml Vial) 2 mg IVP X1 ONE Stop: 01/04/24 10:55 Last Admin: 01/04/24 11:23 Dose: 2 mg Ondansetron HCl (Ondansetron Inj 2 Mg/Ml Inj 2 Ml) 4 mg IV X1 ONE Stop: 12/21/23 22:29 Last Admin: 12/21/23 23:52 Dose: Not Given Ondansetron HCl (Ondansetron Inj 2 Mg/Ml Inj 2 Ml) 4 mg IV X1 PRN PRN Reason: NAUSEA OR VOMITING Stop: 01/01/24 18:54 Oxycodone/Acetaminophen (Oxycodone/Apap 5/325 Tablet) 1 tab PO Q4H PRN PRN Reason: PAIN SCALE 4-10(Mod-Sev Stop: 01/01/24 13:50 Last Admin: 12/29/23 10:11 Dose: 1 tab Oxycodone/Acetaminophen (Oxycodone/Apap 5/325 Tablet) 1 tab PO Q4H PRN PRN Reason: PAIN SCALE 4-6 Stop: 01/01/24 13:50 Last Admin: 12/30/23 15:53 Dose: 1 tab Pantoprazole Sodium (Pantoprazole 20 Mg Tablet) 20 mg PO QDAY TAL Stop: 01/23/24 08:59 Last Admin: 12/24/23 09:06 Dose: 20 mg Pantoprazole Sodium (Pantoprazole Inj 40 Mg Vial) 20 mg IVP QDAY TAL; Protocol Stop: 01/24/24 08:59 Last Admin: 12/25/23 08:25 Dose: 20 mg Pantoprazole Sodium (Pantoprazole Inj 40 Mg Vial) 40 mg IVP QDAY TAL; Protocol Stop: 01/25/24 08:59 Last Admin: 12/29/23 08:43 Dose: 40 mg Pantoprazole Sodium (Pantoprazole 40 Mg Tablet) 40 mg PO QDAY TAL; Protocol Stop: 01/29/24 08:59 Last Admin: 12/31/23 10:09 Dose: 40 mg Potassium Chloride (Potassium Chloride 10% 20 Meq/15 Ml Udc) 40 meq PO X1 ONE Stop: 12/21/23 16:40 Last Admin: 12/21/23 17:03 Dose: 40 meq Potassium Chloride (Potassium Chloride 10% 20 Meq/15 Ml Udc) 40 meq PO X1 ONE Stop: 12/24/23 08:45 Last Admin: 12/24/23 09:05 Dose: 40 meq Potassium Chloride (Potassium Chloride 10% 20 Meq/15 Ml Udc) 40 meq PO X1 ONE Stop: 12/24/23 11:29 Last Admin: 12/24/23 13:26 Dose: 40 meq Potassium Chloride (Potassium Chloride 20 Meq Tabcr) 20 meq PO X1 ONE Stop: 12/30/23 08:09 Last Admin: 12/30/23 09:11 Dose: 20 meq Potassium Chloride (Potassium Chloride 20 Meq Tabcr) 40 meq PO X1 ONE Stop: 12/31/23 08:22 Last Admin: 12/31/23 10:09 Dose: 40 meq Potassium Chloride (Potassium Chloride 10% 20 Meq/15 Ml Udc) 40 meq PO X1 ONE Stop: 12/31/23 08:44 Last Admin: 12/31/23 10:09 Dose: Not Given Potassium Chloride (Potassium Chloride 20 Meq Tabcr) 40 meq PO X1 ONE Stop: 01/02/24 08:40 Last Admin: 01/02/24 10:37 Dose: 40 meq Potassium Chloride (Potassium Chloride 20 Meq Tabcr) 20 meq PO X1 ONE Stop: 01/02/24 08:40 Last Admin: 01/02/24 10:14 Dose: Not Given Potassium Phos/Sodium Phos (Naph,Kph Mbdb 1 Packet (1.5 Gm)) 2 packet PO X1 ONE Stop: 01/03/24 08:43 Last Admin: 01/03/24 09:01 Dose: 2 packet Sodium Chloride (Sodium Chloride Rt 10% 15 Ml Nebu) 5 ml INH X1 ONE Stop: 12/25/23 09:04 Last Admin: 12/25/23 10:41 Dose: Not Given Sodium Chloride (Sodium Chloride Rt 10% 15 Ml Nebu) 5 ml INH X1 ONE Stop: 01/05/24 09:45 Assessment & Plan Plan 43-year-old male no significant past medical history who presented 12/20 with perforated appendicitis with free purulent material in abdomen, underwent laparoscopic appendectomy 12/20. Medicine team consulted 12/22. tachypnea, tachycardia, increased O2 requirement, repeat CT A/P showed pneumoperitoneum,so he had exploratory laparotomy on 12/23 and was found to have small bowel perforation, washout was performed & subsequent diverting ileostomy and wound VAC. 12/28: CT-guided percutaneous drainage catheter placed for subphrenic abscess. 12/31 underwent secondary closure of abdominal incision. Today patient spiked fever at 6 PM 101.5 ?F, tachycardic and tachypneic requiring 5L O2 nasal cannula saturating 99%. Patient appeared to be more fatigued with firm abdomen, general surgery and pulmonology/camp attendant spoke to family and discussed possibility of bringing patient back to OR for bowel decompression/irrigation, family agreed and patient was taken to the OR. Findings:Purulent material was seen which was whitish and not foul-smelling, sutures removed, irrigated the wound extensively with saline solution and left #19 round [place]We[place] on the right gutter, then the wound was closed with wound VAC leaving the fascia completely open. Patient tolerated the procedure well and left operating room in stable condition. On arrival to ICU patient intubated, hemodinamically stable. HOME CARE PHYSICAL THERAPIST -Sedated CVS -Tachycardia, in the setting of sepsis Respiratory #Acute hypoxic respiratoy failure -O2 requirements increased today along with tachypnea, in the setting of increased demand from abdominal pathology -Currently intubated post ex lap -Follow up ABGs and adjust vent settings accordingly -Pneumonia right lung base on CT on 12/27, currently on meropenem Renal #ANITHA -Initial creatinine on admission 2.9, today 1.5, was anuric today, after surgery urine output improved -Strict I/O GI #Appendicitis, status-post appendectomy 12/20 #Small bowel perforation #Peritonitis #Subcapsular abscess 12/20, laparoscopic appendectomy 12/24, ex lap: small bowel perforation. Diverting ileostomy and peritoneal lavage 12/28, CT-guided percutaneous drainage catheter placed for right subphrenic abscess 12/31, secondary closure of abdominal incision 01/04, CT-guided percutaneous drainage catheter placed with removal 300 cc turbid fluid -Infectious disease consulted -Fluconazole (12/25-), re-started - -Zosyn (12/20-01/02) -> meropenem (01/02-) -Doxycycline 100 mg IV BID (01/05) 01/05: EX lap, abdomen decompression, wound vac in place Endo -Stable Infectious -See GI Disposition: Patient transferred to ICU after surgical exploration, intubated. Diet and fluids: Clinimix 80cc/hr DVT prophylaxis:Heparin Q12hr GI prophylaxis:Pantoprazole CODE STATUS:FULL CODE [place]:In place Lines:Peripheral Patient's care discussed with attending physician, Dr Cindy Gore MD PGY3 Attending Provider Attestation/Addendum Patient seen and examined with above resident, Juana Gore MD. I agree with the findings, assessment, and plan of care as documented separately differences below. Patient seen on telemetry unit with significant abdominal wall restriction. I suspect that this was leading to his renal failure and atelectasis/right lower lobe pneumonia with out improvement despite appropriate antibiotic coverage by medicine service. Patient remained hemodynamically stable though renal function remained limited to recovery. Discussed with surgical team and they were amenable to take the patient back to the OR after extensive discussion with the family throughout the day by myself and surgeon, Dr. Weiss. Patient returned back to ICU from operating room in stable condition. Hemodynamically improved with adequate blood pressure and urine output has picked up already. Abdominal wall remains hard but wound VAC is in place and will suspect with continued antibiotic coverage and time improvement. Patient placed on low tidal volume/lung protective ventilation and will slowly wean from mechanical ventilation based on his response in the coming days. Wound VAC would likely be left in place with no plans for abdominal wall closure, permitting it to by secondary intention. Patient's family not at bedside overnight but will touch base with them again tomorrow morning. Will resume TPN for nutrition as will allow additional bowel rest and continue to monitor output via NG tube. Total critical care time: I personally spent 120 minutes for review of physiologic parameters, coordination with other specialties, extensive counseling of family at bedside. This is exclusive of time spent teaching housestaff or performing any separate billable procedures. Patient continues to require critical care services for acute postoperative respiratory failure, acute renal failure, and severe sepsis with risk for increased morbidity and mortality.
[2024-01-06] MEDS: FLUCONAZOLE/NS 200 MG IVPB 200 MG/100 ML BAG 100 MG IV (23:59)
[2024-01-07] VITALS (56 sets, daily range): BP systolic 87–173; BP diastolic 48–90; PULSE 78–103; RESP 18–32; TEMP 35.9–36.6; O2SAT 94–100
[2024-01-07] MEDS: INSULIN LISPRO (AdmeLOG) 1 UNIT/0.01 ML UNIT SC ×4 (00:34→23:27)
[2024-01-07 00:42] LABS: Base Excess -6 (-3-3); HCO3 21 mEq/L (20-26); Inspired Oxygen, FIO2 90 %; O2 Saturation 99 % (91-98); PCO2 52 mmHg (32.0-48.0); PO2 161 mmHg (83-108); pH, Arterial 7.22 (7.35-7.45)
[2024-01-07 00:44] LABS: Allen Test Not Performed; Puncture Site Arterial Line
--- NOTE | 2024-01-07 00:59 | PC.RT ---
titrated fio2 to 70% per ABG results
[2024-01-07] MEDS: SODIUM CHLORIDE 0.9% 500 ML 500 ML 80 ML IV (03:08)
--- NOTE | 2024-01-07 04:50 | PC.RT ---
0342 called MD Gore to inform her that cxr showed ETT R mainstem. looked at xray and said to extract it 2cm, so ETT is now at 19cm gum. Follow up xray ordered
[2024-01-07 04:54] LABS: Base Excess -6 (-3-3); HCO3 21 mEq/L (20-26); Inspired Oxygen, FIO2 60 %; O2 Saturation 100 % (91-98); PCO2 45 mmHg (32.0-48.0); PO2 209 mmHg (83-108); pH, Arterial 7.27 (7.35-7.45)
[2024-01-07 05:02] LABS: Allen Test Not Performed; Puncture Site Arterial Line
[2024-01-07] MEDS: MEROPENEM INJ 1,000 MG in SODIUM CHLORIDE 0.9% (P) 50 ML 100 MG IV ×3 (05:23→21:16)
[2024-01-07 05:55] LABS: Basophils # (Auto) 0.1 Thou/mm3 (0.0-0.2); Basophils % (Auto) 0 % (0-2.5); Eosinophils % (Auto) 0 % (0-10); Immature Granulocytes % (Auto) 3 % (0-0); Immature Granulocytes Auto 0.92 Thou/mm3 (0.00-0.00); Lymphocytes # (Auto) 1.2 Thou/mm3 (1.0-4.8); Lymphocytes % (Auto) 4 % (10-50); Mean Corpuscular Hemoglobin 27.7 pg (25.0-35.0); Mean Corpuscular Volume 87 fL (80-100); Monocytes # (Auto) 0.8 Thou/mm3 (0.0-0.8); Monocytes % (Auto) 3 % (0-12); Neutrophils # (Auto) 24.5 Thou/mm3 (1.8-7.7); Neutrophils % (Auto) 89 % (37-80); Nucleated Red Blood Cell % 0 /100 WBC (0); Platelet Count 704 Thou/mm3 (140-440); Red Blood Count 2.53 Miln/mm3 (4.50-5.90)
[2024-01-07 06:00] LABS: Hematocrit 21.9 % (41.0-53.0); White Blood Count 27.5 Thou/mm3 (3.8-10.6)
[2024-01-07 06:30] LABS: Alanine Aminotransferase 22 U/L (10-49); Albumin, Serum 3.1 gm/dL (3.5-5.0); Alkaline Phosphatase 119 U/L (46-116); Anion Gap 9 (7-16); Aspartate Amino Transferase 22 U/L (0-34); BUN/Creatinine Ratio 35 Ratio (12-20); Bilirubin,Total 0.3 mg/dL (0.3-1.2); Blood Urea Nitrogen 56 mg/dL (9-23); Calcium 7.8 mg/dL (8.3-10.6); Calcium (Corrected) 8.5 mg/dL (8.5-10.1); Carbon Dioxide 19.3 mMol/L (20.0-31.0); Chloride 105 mMol/L (98-107); Creatinine (Component) 1.6 mg/dL (0.6-1.3); Estimated Creatinine Clearance 62.8 mL/min (>60); Globulin 3.2 gm/dL (2.3-3.5); Glucose 162 mg/dL (74-106); Magnesium 2.1 mg/dL (1.6-2.6); Osmolality,Calculated 285 (275-295); Phosphorous 5.2 mg/dL (2.4-5.1); Potassium 5.2 mMol/L (3.4-5.1); Sodium 133 mMol/L (136-145); Total Protein 6.3 gm/dL (5.7-8.2); eGFR 55 See Note
--- NOTE | 2024-01-07 08:34 | PC.PT ---
Patient will be dc from PT service secondary to patient is transferred to ICU.
[2024-01-07] MEDS: DOXYCYCLINE INJ 100 MG in SODIUM CHLORIDE 0.9% (P) 100 ML IV (09:01)
[2024-01-07] MEDS: PANTOPRAZOLE INJ 40 MG VIAL IVP (09:01)
[2024-01-07] MEDS: INSULIN GLARGINE (Lantus) 5 UNIT/0.05 ML (PER 5 UNITS) 10 UNIT SC (09:02)
[2024-01-07] MEDS: FLUCONAZOLE/NS 200 MG IVPB 200 MG/100 ML BAG 100 MG IV (09:03)
[2024-01-07] MEDS: PROPOFOL 1,000 MG IVPB 1,000 MG/100 ML VIAL 8.614 MG IV (09:34)
[2024-01-07 09:38] LABS: Lactate (Lactic Acid) 1.1 mMol/L (0.4-2.0)
[2024-01-07] MEDS: INSULIN HUM REGULAR 1 UNIT/0.01 ML (PER UNIT) 5 UNIT IV (12:03)
[2024-01-07] MEDS: DEXTROSE 50%-WATER INJ 50 ML SYRINGE 100 ML IV (12:04)
--- NOTE | 2024-01-07 12:13 | PC.CM ---
Patient was moved to ICU. Patient will need new orders placed once he is stable for discharge.
[2024-01-07] MEDS: Vancomycin Inj 2,000 MG in SODIUM CHLORIDE 0.9% 500 ML 500 ML 150 MG IV (13:08)
--- NOTE | 2024-01-07 14:30 | PD.IDPROG ---
Subjective Subjective Interval history: priary team has taken charge of the abx. will leave those decisions in their capable hands Exam Vital Signs Temp Pulse Resp BP Pulse Ox O2 Del Method O2 Flow Rate 97.6 F 99 28 H 161/71 H 98 Mechanical Ventilation 2 01/07/24 12:21 01/07/24 12:21 01/07/24 12:21 01/07/24 12:21 01/07/24 12:21 01/07/24 12:00 01/06/24 16:00 FiO2 35 01/07/24 12:00 Narrative Exam events noted. moved to icu. Objective - Internal Medicine Labs 01/07/24 05:08 01/07/24 05:08 Labs: Laboratory Results - last 24 hr 01/06/24 01/06/24 01/07/24 18:47 21:44 00:30 WBC RBC Hgb Hct MCV MCH MCHC RDW Std Deviation Plt Count Neut % (Auto) Lymph % (Auto) [place] % (Auto) Eos % (Auto) Baso % (Auto) Neut # (Auto) Lymph # (Auto) [place] # (Auto) Eos # (Auto) Baso # (Auto) Immature Gran # (Auto) Absolute Nucleated RBC Immature Gran % Nucleated RBC % Puncture Site Arterial Line Arterial Line ABG pH 7.12 L* D 7.22 L D ABG pCO2 69 H D 52 H D ABG pO2 261 H D 161 H D ABG HCO3 22 21 ABG O2 Saturation 100 H 99 H ABG Base Excess -7 L -6 L FiO2 21 90 Sodium Potassium Chloride Carbon Dioxide Anion Gap BUN Creatinine Estim Creat Clear Calc eGFR BUN/Creatinine Ratio Glucose Calculated Osmolality Lactic Acid Calcium Corrected Calcium Phosphorus Magnesium Total Bilirubin AST ALT Alkaline Phosphatase Total Protein Albumin Globulin Albumin/Globulin Ratio Blood Type O Positive Antibody Screen NEGATIVE Crossmatch See Detail Blood Bank Wristband ID Yes 01/07/24 01/07/24 01/07/24 04:35 05:08 09:10 WBC 27.5 H RBC 2.53 L Hgb 7.0 L Hct 21.9 L* MCV 87 MCH 27.7 MCHC 32.0 RDW Std Deviation 46.0 H Plt Count 704 H D Neut % (Auto) 89 H Lymph % (Auto) 4 L [place] % (Auto) 3 Eos % (Auto) 0 Baso % (Auto) 0 Neut # (Auto) 24.5 H Lymph # (Auto) 1.2 [place] # (Auto) 0.8 Eos # (Auto) 0.0 Baso # (Auto) 0.1 Immature Gran # (Auto) 0.92 H Absolute Nucleated RBC 0.00 Immature Gran % 3 H Nucleated RBC % 0 Puncture Site Arterial Line ABG pH 7.27 L ABG pCO2 45 ABG pO2 209 H D ABG HCO3 21 ABG O2 Saturation 100 H ABG Base Excess -6 L FiO2 60 Sodium 133 L Potassium 5.2 H D Chloride 105 Carbon Dioxide 19.3 L Anion Gap 9 BUN 56 H Creatinine 1.6 H Estim Creat Clear Calc 62.8 eGFR 55 L BUN/Creatinine Ratio 35 H Glucose 162 H Calculated Osmolality 285 Lactic Acid 1.1 Calcium 7.8 L Corrected Calcium 8.5 Phosphorus 5.2 H Magnesium 2.1 Total Bilirubin 0.3 AST 22 ALT 22 Alkaline Phosphatase 119 H D Total Protein 6.3 Albumin 3.1 L Globulin 3.2 Albumin/Globulin Ratio 1.0 L Blood Type Antibody Screen Crossmatch Blood Bank Wristband ID ABG Interpretation ABG results: 12/21/23 12/24/23 12/25/23 15:50 19:45 02:34 ABG pH 7.40 7.23 L D ABG pCO2 40 56 H D ABG pO2 134 H 229 H D ABG HCO3 25 24 ABG O2 Saturation 99 H 100 H ABG Base Excess 0 -5 L VBG pH 7.48 VBG pCO2 35 L VBG pO2 56 VBG Base Excess 2 12/25/23 12/25/23 12/26/23 04:54 10:48 06:56 ABG pH 7.25 L 7.33 L 7.34 L ABG pCO2 52 H 45 43 ABG pO2 93 D 99 95 ABG HCO3 23 23 23 ABG O2 Saturation 97 98 98 ABG Base Excess -5 L -3 -2 VBG pH VBG pCO2 VBG pO2 VBG Base Excess 12/26/23 01/05/24 01/06/24 10:15 08:13 13:50 ABG pH 7.36 7.37 7.42 ABG pCO2 41 38 30 L ABG pO2 87 75 L 90 ABG HCO3 23 22 19 L ABG O2 Saturation 98 96 98 ABG Base Excess -2 -3 -5 L VBG pH VBG pCO2 VBG pO2 VBG Base Excess 01/06/24 01/07/24 01/07/24 21:44 00:30 04:35 ABG pH 7.12 L* D 7.22 L D 7.27 L ABG pCO2 69 H D 52 H D 45 ABG pO2 261 H D 161 H D 209 H D ABG HCO3 22 21 21 ABG O2 Saturation 100 H 99 H 100 H ABG Base Excess -7 L -6 L -6 L VBG pH VBG pCO2 VBG pO2 VBG Base Excess Assessment & Plan A&P Narrative abd perforation delayed wound closure done 12/31/23 dm II ckd will f/u see again prn as others are now taking charge of the abx. we have exceeded the usual rx regimen and no abscess was found. hope he continues to improve on empiric rx. . it is traditional to add antifungal to abd rx. Time Spent With Patient Time: Total time spent is greater than 50% in coordination of care (as documented) at patient's floor/unit and/or counseling patient:
--- NOTE | 2024-01-07 15:04 | ESPR_ITS ---
Documentation for date of: 01/07/24 Subjective Subjective Interval history: 43-year-old male no significant past medical history who presented 12/20 with perforated appendicitis with free purulent material in abdomen, underwent laparoscopic appendectomy 12/20. Medicine team consulted 12/22. tachypnea, tachycardia, increased O2 requirement, repeat CT A/P showed pneumoperitoneum,so he had exploratory laparotomy on 12/23 and was found to have small bowel perforation, washout was performed & subsequent diverting ileostomy and wound VAC. 12/28: CT-guided percutaneous drainage catheter placed for subphrenic abscess. 12/31 underwent secondary closure of abdominal incision. Today patient spiked fever at 6 PM 101.5 ?F, tachycardic and tachypneic requiring 5L O2 nasal cannula saturating 99%. Patient appeared to be more fatigued with firm abdomen, general surgery and pulmonology/tool engine lathe set up operator spoke to family and discussed possibility of bringing patient back to OR for bowel decompression/irrigation, family agreed and patient was taken to the OR. Findings:Purulent material was seen which was whitish and not foul-smelling, sutures removed, irrigated the wound extensively with saline solution and left #19 round [place]-Weber on the right gutter, then the wound was closed with wound VAC leaving the fascia completely open. Patient tolerated the procedure well and left operating room in stable condition. On arrival to ICU patient intubated, hemodinamically stable. 01/07/2024, patient evaluated bedside, currently on mechanical ventilation, moderate sedation, spontaneous awakening trial done, able to follow commands, spoke to general surgeon Dr. Rubio, recommended continuing with medical management, no further surgical intervention required at this point, allow for wound closure by secondary intention, continue with wound VAC. Will add vancomycin for abdominal wall infection, continue with meropenem and fluconazole for intra-abdominal sepsis. Patient will be continued on PPN, lipid formulations adjusted for propofol. Added a.m. triglyceride labs. continue with sedation and mechanical ventilation for now. Exam Vital Signs Temp Pulse Resp BP Pulse Ox O2 Del Method O2 Flow Rate 97.6 F 93 28 H 123/83 98 Mechanical Ventilation 2 01/07/24 12:21 01/07/24 14:30 01/07/24 12:21 01/07/24 14:30 01/07/24 14:30 01/07/24 12:00 01/06/24 16:00 FiO2 35 01/07/24 14:30 Narrative Exam General: currently sedated and ventilated HEENT: NC/AT, mucous membranes moist, bilateral sclera anicteric Cardiovascular: regular rate and rhythm, S1/S2 present, no murmurs appreciated Pulmonary: mechanically ventilated, basal rhonchi on ascultation Abdominal: ileostomy present; midline incision, open abdomen, wound vac in place, Musculoskeletal: normal ROM, no peripheral edema Skin: warm and dry, intact, no rashes Neuro: Sedated , RAAS -3, Objective Labs 01/08/24 05:00 01/08/24 05:00 Labs: Laboratory Results - last 24 hr 01/06/24 01/06/24 01/07/24 18:47 21:44 00:30 WBC RBC Hgb Hct MCV MCH MCHC RDW Std Deviation Plt Count Neut % (Auto) Lymph % (Auto) [place] % (Auto) Eos % (Auto) Baso % (Auto) Neut # (Auto) Lymph # (Auto) [place] # (Auto) Eos # (Auto) Baso # (Auto) Immature Gran # (Auto) Absolute Nucleated RBC Immature Gran % Nucleated RBC % Puncture Site Arterial Line Arterial Line ABG pH 7.12 L* D 7.22 L D ABG pCO2 69 H D 52 H D ABG pO2 261 H D 161 H D ABG HCO3 22 21 ABG O2 Saturation 100 H 99 H ABG Base Excess -7 L -6 L FiO2 21 90 Sodium Potassium Chloride Carbon Dioxide Anion Gap BUN Creatinine Estim Creat Clear Calc eGFR BUN/Creatinine Ratio Glucose Calculated Osmolality Lactic Acid Calcium Corrected Calcium Phosphorus Magnesium Total Bilirubin AST ALT Alkaline Phosphatase Total Protein Albumin Globulin Albumin/Globulin Ratio Blood Type O Positive Antibody Screen NEGATIVE Crossmatch See Detail Blood Bank Wristband ID Yes 01/07/24 01/07/24 01/07/24 04:35 05:08 09:10 WBC 27.5 H RBC 2.53 L Hgb 7.0 L Hct 21.9 L* MCV 87 MCH 27.7 MCHC 32.0 RDW Std Deviation 46.0 H Plt Count 704 H D Neut % (Auto) 89 H Lymph % (Auto) 4 L [place] % (Auto) 3 Eos % (Auto) 0 Baso % (Auto) 0 Neut # (Auto) 24.5 H Lymph # (Auto) 1.2 [place] # (Auto) 0.8 Eos # (Auto) 0.0 Baso # (Auto) 0.1 Immature Gran # (Auto) 0.92 H Absolute Nucleated RBC 0.00 Immature Gran % 3 H Nucleated RBC % 0 Puncture Site Arterial Line ABG pH 7.27 L ABG pCO2 45 ABG pO2 209 H D ABG HCO3 21 ABG O2 Saturation 100 H ABG Base Excess -6 L FiO2 60 Sodium 133 L Potassium 5.2 H D Chloride 105 Carbon Dioxide 19.3 L Anion Gap 9 BUN 56 H Creatinine 1.6 H Estim Creat Clear Calc 62.8 eGFR 55 L BUN/Creatinine Ratio 35 H Glucose 162 H Calculated Osmolality 285 Lactic Acid 1.1 Calcium 7.8 L Corrected Calcium 8.5 Phosphorus 5.2 H Magnesium 2.1 Total Bilirubin 0.3 AST 22 ALT 22 Alkaline Phosphatase 119 H D Total Protein 6.3 Albumin 3.1 L Globulin 3.2 Albumin/Globulin Ratio 1.0 L Blood Type Antibody Screen Crossmatch Blood Bank Wristband ID ABG Interpretation ABG results: 12/21/23 12/24/23 12/25/23 15:50 19:45 02:34 ABG pH 7.40 7.23 L D ABG pCO2 40 56 H D ABG pO2 134 H 229 H D ABG HCO3 25 24 ABG O2 Saturation 99 H 100 H ABG Base Excess 0 -5 L VBG pH 7.48 VBG pCO2 35 L VBG pO2 56 VBG Base Excess 2 12/25/23 12/25/23 12/26/23 04:54 10:48 06:56 ABG pH 7.25 L 7.33 L 7.34 L ABG pCO2 52 H 45 43 ABG pO2 93 D 99 95 ABG HCO3 23 23 23 ABG O2 Saturation 97 98 98 ABG Base Excess -5 L -3 -2 VBG pH VBG pCO2 VBG pO2 VBG Base Excess 12/26/23 01/05/24 01/06/24 10:15 08:13 13:50 ABG pH 7.36 7.37 7.42 ABG pCO2 41 38 30 L ABG pO2 87 75 L 90 ABG HCO3 23 22 19 L ABG O2 Saturation 98 96 98 ABG Base Excess -2 -3 -5 L VBG pH VBG pCO2 VBG pO2 VBG Base Excess 01/06/24 01/07/24 01/07/24 21:44 00:30 04:35 ABG pH 7.12 L* D 7.22 L D 7.27 L ABG pCO2 69 H D 52 H D 45 ABG pO2 261 H D 161 H D 209 H D ABG HCO3 22 21 21 ABG O2 Saturation 100 H 99 H 100 H ABG Base Excess -7 L -6 L -6 L VBG pH VBG pCO2 VBG pO2 VBG Base Excess Quality Measures Quality Measures none Assessment & Plan Assessment Current Active Medications: Generic Name Dose Route Start Last Admin Trade Name Naun PRN Reason Stop Dose Admin Acetaminophen 650 mg 12/31/23 13:25 01/02/24 00:03 Acetaminophen 325 Mg Tablet PO 01/20/24 23:30 650 mg Q6HR PRN Administration Pain (1-3) and FEVER>100.3 Hydrocodone Bitart/Acetaminophen 1 tab 01/04/24 07:35 01/06/24 07:30 Hydrocodone/Apap 5/325 Tablet PO 01/09/24 07:34 1 tab Q6HR PRN Administration PAIN SCALE 4-10(Mod-Sev Dextrose 25 ml 01/04/24 14:37 Dextrose 50%-Water Inj 50 Ml Syringe IV 02/03/24 14:36 Q15MIN PRN BG 50-70 responsive npo pt Dextrose 50 ml 01/04/24 14:37 Dextrose 50%-Water Inj 50 Ml Syringe IV 02/03/24 14:36 Q15MIN PRN BG <50 OR BG <70 & pt unresponsive Dextrose 25 ml 01/07/24 11:34 Dextrose 50%-Water Inj 50 Ml Syringe IV 02/06/24 11:33 Q15MIN PRN BG 50-70 responsive npo pt Dextrose 50 ml 01/07/24 11:34 Dextrose 50%-Water Inj 50 Ml Syringe IV 02/06/24 11:33 Q15MIN PRN BG <50 OR BG <70 & pt unresponsive Glucagon 1 mg 01/04/24 14:37 Glucagon Inj 1 Mg Vial IM Q15MIN PRN BG <70, and no IV access Glucagon 1 mg 01/07/24 11:34 Glucagon Inj 1 Mg Vial IM Q15MIN PRN BG <70, and no IV access Heparin Sodium (Porcine) 5,000 unit 12/27/23 21:00 01/07/24 09:03 Heparin Sod Inj 5000 Unit/Ml Vial SC 01/10/24 20:59 Not Given Q12HR TAL Meropenem 1,000 mg/ Sodium 50 mls @ 100 mls/hr 01/03/24 22:00 01/07/24 14:15 Chloride IV 01/10/24 21:59 100 mls/hr Q8HR TAL Administration Fentanyl Citrate 2,500 mcg in 250 mls @ 2.5 mls/hr 01/06/24 20:47 01/07/24 14:00 Sublimaze Inj 2,500 Mcg/250 Ml Bag IV 01/11/24 20:46 75 mcg/hr .Q24H PRN 7.5 mls/hr PER PROTOCOL Titration Protocol 25 MCG/HR Propofol 1,000 mg in 100 mls @ 2.871 mls/hr 01/06/24 20:48 01/07/24 14:00 Diprivan Ivpb IV 02/05/24 20:47 20 mcg/kg/min .Q24H PRN 11.485 mls/hr PER PROTOCOL Titration Protocol 5 MCG/KG/MIN Fluconazole 200 mg in 100 mls @ 100 mls/hr 01/07/24 09:00 01/07/24 09:03 Diflucan/Ns Ivpb IV 01/14/24 08:59 100 mls/hr QDAY TAL Administration Fat Emulsion-[place] Oil/Soybean Oil 500 mls @ 32 mls/hr 01/09/24 18:00 Clinopid 20% Iv IV 02/08/24 17:59 MoFr@1800 TAL Sodium Acetate 15 meq/ 2,027.5 mls @ 100 mls/hr 01/07/24 18:00 Multivitamins/Minerals 10 ml/ IV 01/08/24 14:16 Calcium Gluconate 1 gm/ Amino QDAY@1800 ONE Acids Insulin Glargine 10 unit 01/04/24 14:45 01/07/24 09:02 Insulin Glargine (Lantus) 5 Unit/0.05 Ml (Per 5 Units) SC 02/03/24 14:44 10 unit QDAY TAL Administration Insulin Human Lispro 0 unit 01/04/24 18:00 01/07/24 12:03 Insulin Lispro (Admelog) 1 Unit/0.01 Ml Unit SC 02/03/24 17:59 1 unit Q6HR TAL Administration Protocol Labetalol HCl 10 mg 01/05/24 19:16 01/05/24 22:46 Labetalol Inj 5 Mg/Ml Vial 20 Ml IVP 02/04/24 19:29 10 mg Q6H PRN Administration SBP >170, DBP>110 Melatonin 3 mg 12/28/23 21:00 01/06/24 21:59 Melatonin 3 Mg Tablet PO 01/27/24 20:59 Not Given HS TAL Ondansetron HCl 4 mg 12/21/23 23:31 01/04/24 06:56 Ondansetron Inj 2 Mg/Ml Inj 2 Ml IV 01/20/24 23:30 4 mg Q4HR PRN Administration NAUSEA OR VOMITING Pantoprazole Sodium 40 mg 01/01/24 09:00 01/07/24 09:01 Pantoprazole Inj 40 Mg Vial IVP 01/31/24 08:59 40 mg QDAY TAL Administration Protocol Pharmacy Consult 1 each 01/07/24 11:30 Pharmacy To Dose Vancomycin IV 02/06/24 11:29 QDAY PRN PROTOCOL Sodium Chloride 3 ml 01/06/24 13:04 01/06/24 13:37 Sodium Chloride Rt [place] 0.9% 3 Ml Nebu INH 02/05/24 13:03 3 ml PRN PRN Administration SOLN Plan 43-year-old male no significant past medical history who presented 12/20 with perforated appendicitis with free purulent material in abdomen, underwent laparoscopic appendectomy 12/20. Medicine team consulted 12/22. tachypnea, tachycardia, increased O2 requirement, repeat CT A/P showed pneumoperitoneum,so he had exploratory laparotomy on 12/23 and was found to have small bowel perforation, washout was performed & subsequent diverting ileostomy and wound VAC. 12/28: CT-guided percutaneous drainage catheter placed for subphrenic abscess. 12/31 underwent secondary closure of abdominal incision. Today patient spiked fever at 6 PM 101.5 ?F, tachycardic and tachypneic requiring 5L O2 nasal cannula saturating 99%. Patient appeared to be more fatigued with firm abdomen, general surgery and pulmonology/tool engine lathe set up operator spoke to family and discussed possibility of bringing patient back to OR for bowel decompression/irrigation, family agreed and patient was taken to the OR. Findings:Purulent material was seen which was whitish and not foul-smelling, sutures removed, irrigated the wound extensively with saline solution and left #19 round Shel[place]-Weber on the right gutter, then the wound was closed with wound VAC leaving the fascia completely open. Patient tolerated the procedure well and left operating room in stable condition. On arrival to ICU patient intubated, hemodinamically stable. WEBSPHERE PORTAL ARCHITECT -Sedated -Spontaneous awakening trial today, patient was able to follow commands, not ready to be extubated just yet given acidosis. Patient was resumed back on sedation, RASS goal -3 CVS -Tachycardia, in the setting of sepsis Respiratory #Acute hypoxic respiratoy failure -O2 requirements increased today along with tachypnea, in the setting of increased demand from abdominal pathology -Currently intubated post ex lap -Follow up ABGs and adjust vent settings accordingly -Pneumonia right lung base on CT on 12/27, currently on meropenem Renal #ANITHA -Initial creatinine on admission 2.9, today 1.5, was anuric today, after surgery urine output improved -Strict I/O GI #Appendicitis, status-post appendectomy 12/20 #Small bowel perforation #Peritonitis #Subcapsular abscess 12/20, laparoscopic appendectomy 12/24, ex lap: small bowel perforation. Diverting ileostomy and peritoneal lavage 12/28, CT-guided percutaneous drainage catheter placed for right subphrenic abscess 12/31, secondary closure of abdominal incision 01/04, CT-guided percutaneous drainage catheter placed with removal 300 cc turbid fluid -Infectious disease consulted -Fluconazole (12/25-), re-started - -Zosyn (12/20-01/02) -> meropenem (01/02-) -Doxycycline 100 mg IV BID (01/05) 01/05: EX lap, abdomen decompression, wound vac in place Endo -Stable Infectious -See GI Disposition: Patient transferred to ICU after surgical exploration, intubated. Diet and fluids: Clinimix 80cc/hr DVT prophylaxis:Heparin Q12hr GI prophylaxis:Pantoprazole CODE STATUS:FULL CODE [place]:In place Lines:Peripheral Patient's care discussed with attending physician, Dr Cindy Oswald PGY2 Attending Provider Attestation/Addendum Patient seen and examined with above resident, Marisol Oswald MD. I agree with the findings, assessment, and plan of care as documented except for any differences below. Patient postop day 1 from wound VAC placement for abdominal wall infection. Patient's abdominal wall continues to improve along with reduction pressure with adequate recruitment of the right lower lobe on follow- up chest films. Patient tolerated SAT and was following commands and remains neurologically intact. We have placed him back on sedation after holiday was completed to ensure his comfort. Patient's was updated at bedside but she did not get to see him awake today. Patient's hemodynamics continue to be improved with no evidence of fever. High output from wound VAC suggest adequate control for drainage of infection with continued antibiotics. Patient's enteral access continues to be on low intermittent wall suction for adequate drainage and decompression. Does have bowel sounds and enteral use for feeding will be considered in coming days. However, we will continue with TPN at this time to ensure adequate nutrition given prolonged poor intake even after his other 2 operations. Patient's ostomy output continues to be minimal. Patient continues to have significant acidosis which we will tolerate with lung protective ventilation and correct any metabolic processes that are driving this. This will help with optimizing him for extubation in the coming days after coordination with surgical input on their plan of care. Renal function continues to improve with high urine output after decompression of the abdominal organs as well. Gas exchange is excellent with minimal requirements for oxygenation. Total critical care time: I personally spent 40 minutes for review of physiologic parameters, directing plan of care throughout the day, coordination of care with other specialists, and counseling patient's at bedside. This is exclusive of time spent teaching housestaff or performing any separate billable procedures. Patient continues to require critical care services for acute hypoxic/postop respiratory failure and abdominal wall infection. He remains at high risk for increased morbidity and mortality.
[2024-01-07 16:12] LABS: Hematocrit 24.1 % (41.0-53.0)
--- NOTE | 2024-01-07 16:23 | PD.SURPROG ---
Documentation for date of: 01/07/24 Subjective Subjective Brief History: As above Narrative: The patient appears slightly better after the surgery and respiratory support. Exam Vital Signs Temp Pulse Resp BP Pulse Ox O2 Del Method O2 Flow Rate 97.9 F 91 30 H 117/88 H 98 Mechanical Ventilation 2 01/07/24 15:15 01/07/24 15:15 01/07/24 15:15 01/07/24 15:15 01/07/24 15:15 01/07/24 12:00 01/06/24 16:00 FiO2 35 01/07/24 14:30 Narrative Exam His vital signs revealed that his pulse rate is coming down and is in the range of 80-90. Blood pressure is normal and his urine output is improving Routine Abdominal Exam Comments: Abdominal examination showed wound VAC which is draining clear fluid which is serous Results Results: Laboratory Laboratory Narrative: Patient's laboratory results show that his WBC is dropping down but still high around 27,000. BUN/creatinine are slightly elevated Results: Imaging Imaging narrative: Chest x-ray looks free of any infiltrate Assessment & Plan Assessment Additional comments: Impression: Stable recovery following laparotomy and wound VAC Plan Plan: Patient is on TPN and I would like to strongly mention that we will keep the TPN on because he was not able to take any oral feeding before surgery. The GI tract was available after the ileostomy was performed 2 weeks ago but patient was not able to eat. Therefore TPN was started late only from last Friday the . We can decrease it but still keep it as it would improve his nutritional status. When the NG tube drainage is less we shall try to feed him and then taper the TPN. I will not be in a hurry to close the fascia because it is difficult to approximate. We can treat him with wound VAC and accept an incisional hernia and address it at a later date. Procedures Procedures Exploratory laparotomy and drainage of the subcutaneous infection and wound VAC application
[2024-01-07 16:37] LABS: Albumin, Serum 3.2 gm/dL (3.5-5.0); Anion Gap 7 (7-16); BUN/Creatinine Ratio 34 Ratio (12-20); Blood Urea Nitrogen 54 mg/dL (9-23); Calcium 7.8 mg/dL (8.3-10.6); Calcium (Corrected) 8.4 mg/dL (8.5-10.1); Carbon Dioxide 19.8 mMol/L (20.0-31.0); Chloride 109 mMol/L (98-107); Creatinine (Component) 1.6 mg/dL (0.6-1.3); Estimated Creatinine Clearance 62.2 mL/min (>60); Glucose 147 mg/dL (74-106); Osmolality,Calculated 289 (275-295); Phosphorous 5.2 mg/dL (2.4-5.1); Potassium 5.2 mMol/L (3.4-5.1); Sodium 136 mMol/L (136-145); eGFR 55 See Note
--- NOTE | 2024-01-07 17:07 | XR_ITS ---
Examination: AP chest single view Technique one AP portable semiupright chest single view Exam date and time: January 07, 2024 1739 hours INDICATIONS: Reposition endotracheal tube FINDINGS: Tracheal tube tip 29 mm above jose cruz Right internal jugular central line tip SVC satisfactory position Orogastric tube in the stomach tip below the level film Mild prominence left ventricle Prominent vascular congestion Layered right pleural fluid IMPRESSION: Tracheal tube tip 29 mm above jose cruz Mild heart failure Right internal jugular central line tip satisfactory position, no pneumothorax
[2024-01-07] MEDS: MULTIVITAMIN IV (17:45)
[2024-01-07] MEDS: AMINO ACID IV (17:45)
[2024-01-07] MEDS: CALCIUM GLUCONATE IV (17:45)
[2024-01-07] MEDS: [UNRECOGNIZED DRUG - OTHER] IV (17:45)
[2024-01-07] MEDS: PROPOFOL 1,000 MG IVPB 1,000 MG/100 ML VIAL 20.099 MG IV ×2 (19:00→23:39)
[2024-01-07] MEDS: HEPARIN SOD INJ 5000 UNIT/ML VIAL SC (20:13)
[2024-01-07] MEDS: fentaNYL 2,500 MCG/250 ML BAG 2,500 MCG/250 ML BAG 17.5 MCG IV (21:50)
[2024-01-08] VITALS (30 sets, daily range): BP systolic 98–157; BP diastolic 57–89; PULSE 94–117; RESP 17–28; TEMP 36.6–36.8; O2SAT 95–99
[2024-01-08] MEDS: PROPOFOL 1,000 MG IVPB 1,000 MG/100 ML VIAL 20.099 MG IV (05:00)
[2024-01-08 05:09] LABS: Base Excess -7 (-3-3); HCO3 20 mEq/L (20-26); Inspired Oxygen, FIO2 35 %; O2 Saturation 98 % (91-98); PCO2 47 mmHg (32.0-48.0); PO2 97 mmHg (83-108); pH, Arterial 7.24 (7.35-7.45)
[2024-01-08 05:25] LABS: Allen Test Performed/OK; Puncture Site Right Radial
[2024-01-08] MEDS: INSULIN LISPRO (AdmeLOG) 1 UNIT/0.01 ML UNIT SC ×2 (05:33→17:45)
[2024-01-08] MEDS: MEROPENEM INJ 1,000 MG in SODIUM CHLORIDE 0.9% (P) 50 ML 100 MG IV ×3 (05:34→21:33)
[2024-01-08 06:10] LABS: Magnesium 1.7 mg/dL (1.6-2.6); Triglycerides 392 mg/dL (30-150); Vancomycin,Random 16.2 mcg/mL
[2024-01-08 07:33] LABS: Basophils % (Auto) 0 % (0-2.5); Eosinophils % (Auto) 0 % (0-10); Hematocrit 22.9 % (41.0-53.0); Immature Granulocytes % (Auto) 2 % (0-0); Immature Granulocytes Auto 0.41 Thou/mm3 (0.00-0.00); Lymphocytes # (Auto) 0.9 Thou/mm3 (1.0-4.8); Lymphocytes % (Auto) 5 % (10-50); Mean Corpuscular HGB Conc 31.9 g/dl (31.0-37.0); Mean Corpuscular Hemoglobin 28.6 pg (25.0-35.0); Mean Corpuscular Volume 90 fL (80-100); Monocytes # (Auto) 1.7 Thou/mm3 (0.0-0.8); Monocytes % (Auto) 9 % (0-12); Neutrophils # (Auto) 16.3 Thou/mm3 (1.8-7.7); Neutrophils % (Auto) 84 % (37-80); Nucleated Red Blood Cell # 0.02 Thou/mm3 (0.00-0.00); Nucleated Red Blood Cell % 0 /100 WBC (0); Platelet Count 570 Thou/mm3 (140-440); RDW Standard Deviation 48.2 fL (35.1-43.9); Red Blood Count 2.55 Miln/mm3 (4.50-5.90); White Blood Count 19.3 Thou/mm3 (3.8-10.6)
[2024-01-08 07:35] LABS: Hemoglobin 7.3 g/dL (13.5-16.0)
[2024-01-08 07:39] LABS: Anion Gap 7 (7-16); BUN/Creatinine Ratio 39 Ratio (12-20); Blood Urea Nitrogen 55 mg/dL (9-23); Carbon Dioxide 16.7 mMol/L (20.0-31.0); Chloride 116 mMol/L (98-107); Creatinine (Component) 1.4 mg/dL (0.6-1.3); Estimated Creatinine Clearance 72.6 mL/min (>60); Glucose 188 mg/dL (74-106); Osmolality,Calculated 299 (275-295); Potassium 4.2 mMol/L (3.4-5.1); Sodium 140 mMol/L (136-145); eGFR > 60 See Note
[2024-01-08 07:42] LABS: Calcium 6.4 mg/dL (8.3-10.6)
[2024-01-08] MEDS: PANTOPRAZOLE INJ 40 MG VIAL IVP (08:24)
[2024-01-08] MEDS: HEPARIN SOD INJ 5000 UNIT/ML VIAL SC ×2 (08:24→21:33)
[2024-01-08] MEDS: FLUCONAZOLE/NS 200 MG IVPB 200 MG/100 ML BAG 100 MG IV (08:24)
--- NOTE | 2024-01-08 10:01 | PC.WOUND ---
Spoke with Dr. Rubio regarding plan for wound vac to midline abdomen. Dressing changes to begin tomorrow for M/W/F schedule.
[2024-01-08] MEDS: fentaNYL 2,500 MCG/250 ML BAG 2,500 MCG/250 ML BAG 22.5 MCG IV (10:20)
[2024-01-08] MEDS: FUROSEMIDE INJ 10 MG/ML 4ML VIAL 40 MG IVP (11:09)
[2024-01-08] MEDS: PROPOFOL 1,000 MG IVPB 1,000 MG/100 ML VIAL 14.356 MG IV ×2 (12:23→21:30)
[2024-01-08] MEDS: VANCOMYCIN/D5W 1,250 MG IVPB 250 ML 120 MG IV ×2 (12:26→21:33)
[2024-01-08] MEDS: [UNRECOGNIZED DRUG - OTHER] IV (15:00)
[2024-01-08] MEDS: MAGNESIUM SULF IV (15:00)
[2024-01-08] MEDS: CALCIUM GLUCONATE IV (15:00)
--- NOTE | 2024-01-08 15:08 | PC.SS ---
Update: Patient is intubated/sedated. Patient in possession of wound vac. TPN source of nutrition. Villarreal catheter in place. IV antibiotics in place.
--- NOTE | 2024-01-08 15:14 | ESPR_ITS ---
Documentation for date of: 01/08/24 Subjective Subjective Brief History: As above Narrative: The patient is still on the respirator and his heart rate is increased to 100- 115. His CABG show respiratory acidosis. His wound VAC is intact Exam Vital Signs Temp Pulse Resp BP Pulse Ox O2 Del Method O2 Flow Rate 97.9 F 110 H 27 H 146/83 H 97 Mechanical Ventilation 2 01/08/24 00:00 01/08/24 14:54 01/08/24 06:00 01/08/24 14:54 01/08/24 14:54 01/07/24 16:00 01/06/24 16:00 FiO2 35 01/08/24 14:54 Vital signs are normal other than tachycardia Routine Abdominal Exam Comments: Abdominal examination shows less distention the VANESSA is not draining. His ileostomy drainage also is low. Results Results: Laboratory Laboratory Narrative: Laboratory results show WBC to be around 19,000. His BUN/creatinine is still elevated Assessment & Plan Assessment Additional comments: Impression: Stable postoperative course Respiratory acidosis, mild Plan Plan: We shall keep the patient intubated for at least another couple of days. We shall change the wound VAC tomorrow. I suggest we do not DC the central line which can be used for TPN. Other medications can be given. In the peripheral line. Procedures Procedures Exploratory laparotomy and drainage of the subcutaneous infection and wound VAC application
--- NOTE | 2024-01-08 20:26 | PD.RESPRO ---
Documentation for date of: 01/08/24 Subjective Subjective Interval history: 43-year-old male no significant past medical history who presented 12/20 with perforated appendicitis with free purulent material in abdomen, underwent laparoscopic appendectomy 12/20. Medicine team consulted 12/22. tachypnea, tachycardia, increased O2 requirement, repeat CT A/P showed pneumoperitoneum,so he had exploratory laparotomy on 12/23 and was found to have small bowel perforation, washout was performed & subsequent diverting ileostomy and wound VAC. 12/28: CT-guided percutaneous drainage catheter placed for subphrenic abscess. 12/31 underwent secondary closure of abdominal incision. Today patient spiked fever at 6 PM 101.5 ?F, tachycardic and tachypneic requiring 5L O2 nasal cannula saturating 99%. Patient appeared to be more fatigued with firm abdomen, general surgery and pulmonology/vinyl top installer spoke to family and discussed possibility of bringing patient back to OR for bowel decompression/irrigation, family agreed and patient was taken to the OR. Findings:Purulent material was seen which was whitish and not foul-smelling, sutures removed, irrigated the wound extensively with saline solution and left #19 round Shel[place]-Weber on the right gutter, then the wound was closed with wound VAC leaving the fascia completely open. Patient tolerated the procedure well and left operating room in stable condition. On arrival to ICU patient intubated, hemodinamically stable. 01/07/2024, patient evaluated bedside, currently on mechanical ventilation, moderate sedation, spontaneous awakening trial done, able to follow commands, spoke to general surgeon Dr. Rubio, recommended continuing with medical management, no further surgical intervention required at this point, allow for wound closure by secondary intention, continue with wound VAC. Will add vancomycin for abdominal wall infection, continue with meropenem and fluconazole for intra-abdominal sepsis. Patient will be continued on PPN, lipid formulations adjusted for propofol. Added a.m. triglyceride labs. continue with sedation and mechanical ventilation for now. 01/08/2024, patient evaluated at the bedside, currently on mechanical ventilation,SAT and SBT done, minimal ventilatory requirements, labs pertinent for non aniongap metabolic acidosis and hyperchloremia, requested dietary to adjust TPN formulation for lower chloride content. Resolving ANITHA, urine output improving. Scant collection in VANESSA drain and NG tube, 100 ml in wound vac. Gen surg recommends contuning wiht sedation for 2 more days and for metabolic acidosis to resolve before extubation. per surgery, illeostomy working, GI tract available for feeding, can consider tube feeds tomorrow if pt tolerates. Exam Vital Signs Temp Pulse Resp BP Pulse Ox O2 Del Method O2 Flow Rate 98.2 F 114 H 27 H 148/84 H 97 Mechanical Ventilation 2 01/08/24 16:00 01/08/24 19:06 01/08/24 06:00 01/08/24 19:06 01/08/24 19:06 01/08/24 16:00 01/06/24 16:00 FiO2 35 01/08/24 19:06 Narrative Exam General: currently sedated and ventilated HEENT: NC/AT, mucous membranes moist, bilateral sclera anicteric Cardiovascular: regular rate and rhythm, S1/S2 present, no murmurs appreciated Pulmonary: mechanically ventilated, basal rhonchi on ascultation Abdominal: ileostomy present; midline incision, open abdomen, wound vac in place, Musculoskeletal: normal ROM, no peripheral edema Skin: warm and dry, intact, no rashes Neuro: Sedated , RAAS -3, Objective Labs 01/08/24 05:00 01/08/24 05:00 Labs: Laboratory Results - last 24 hr 01/08/24 01/08/24 04:50 05:00 WBC 19.3 H D RBC 2.55 L Hgb 7.3 L Hct 22.9 L MCV 90 MCH 28.6 MCHC 31.9 RDW Std Deviation 48.2 H Plt Count 570 H D Neut % (Auto) 84 H Lymph % (Auto) 5 L [place] % (Auto) 9 Eos % (Auto) 0 Baso % (Auto) 0 Neut # (Auto) 16.3 H Lymph # (Auto) 0.9 L [place] # (Auto) 1.7 H Eos # (Auto) 0.0 Baso # (Auto) 0.0 Immature Gran # (Auto) 0.41 H Absolute Nucleated RBC 0.02 H Immature Gran % 2 H Nucleated RBC % 0 Puncture Site Right Radial ABG pH 7.24 L ABG pCO2 47 ABG pO2 97 D ABG HCO3 20 ABG O2 Saturation 98 ABG Base Excess -7 L FiO2 35 Sodium 140 Potassium 4.2 D Chloride 116 H Carbon Dioxide 16.7 L Anion Gap 7 BUN 55 H Creatinine 1.4 H Estim Creat Clear Calc 72.6 eGFR > 60 BUN/Creatinine Ratio 39 H Glucose 188 H Calculated Osmolality 299 H Calcium 6.4 L* Phosphorus 4.0 Magnesium 1.7 Triglycerides 392 H Random Vancomycin 16.2 ABG Interpretation ABG results: 12/21/23 12/24/23 12/25/23 15:50 19:45 02:34 ABG pH 7.40 7.23 L D ABG pCO2 40 56 H D ABG pO2 134 H 229 H D ABG HCO3 25 24 ABG O2 Saturation 99 H 100 H ABG Base Excess 0 -5 L VBG pH 7.48 VBG pCO2 35 L VBG pO2 56 VBG Base Excess 2 12/25/23 12/25/23 12/26/23 04:54 10:48 06:56 ABG pH 7.25 L 7.33 L 7.34 L ABG pCO2 52 H 45 43 ABG pO2 93 D 99 95 ABG HCO3 23 23 23 ABG O2 Saturation 97 98 98 ABG Base Excess -5 L -3 -2 VBG pH VBG pCO2 VBG pO2 VBG Base Excess 12/26/23 01/05/24 01/06/24 10:15 08:13 13:50 ABG pH 7.36 7.37 7.42 ABG pCO2 41 38 30 L ABG pO2 87 75 L 90 ABG HCO3 23 22 19 L ABG O2 Saturation 98 96 98 ABG Base Excess -2 -3 -5 L VBG pH VBG pCO2 VBG pO2 VBG Base Excess 01/06/24 01/07/24 01/07/24 21:44 00:30 04:35 ABG pH 7.12 L* D 7.22 L D 7.27 L ABG pCO2 69 H D 52 H D 45 ABG pO2 261 H D 161 H D 209 H D ABG HCO3 22 21 21 ABG O2 Saturation 100 H 99 H 100 H ABG Base Excess -7 L -6 L -6 L VBG pH VBG pCO2 VBG pO2 VBG Base Excess 01/08/24 04:50 ABG pH 7.24 L ABG pCO2 47 ABG pO2 97 D ABG HCO3 20 ABG O2 Saturation 98 ABG Base Excess -7 L VBG pH VBG pCO2 VBG pO2 VBG Base Excess Quality Measures Quality Measures none Assessment & Plan Assessment Current Active Medications: Generic Name Dose Route Start Last Admin Trade Name Freq PRN Reason Stop Dose Admin Acetaminophen 650 mg 12/31/23 13:25 01/02/24 00:03 Acetaminophen 325 Mg Tablet PO 01/20/24 23:30 650 mg Q6HR PRN Administration Pain (1-3) and FEVER>100.3 Hydrocodone Bitart/Acetaminophen 1 tab 01/04/24 07:35 01/06/24 07:30 Hydrocodone/Apap 5/325 Tablet PO 01/09/24 07:34 1 tab Q6HR PRN Administration PAIN SCALE 4-10(Mod-Sev Dextrose 25 ml 01/04/24 14:37 Dextrose 50%-Water Inj 50 Ml Syringe IV 02/03/24 14:36 Q15MIN PRN BG 50-70 responsive npo pt Dextrose 50 ml 01/04/24 14:37 Dextrose 50%-Water Inj 50 Ml Syringe IV 02/03/24 14:36 Q15MIN PRN BG <50 OR BG <70 & pt unresponsive Furosemide 40 mg 01/08/24 09:45 01/08/24 11:09 Furosemide Inj 10 Mg/Ml 4ml Vial IVP 02/07/24 09:44 40 mg QDAY TAL Administration Glucagon 1 mg 01/07/24 11:34 Glucagon Inj 1 Mg Vial IM Q15MIN PRN BG <70, and no IV access Heparin Sodium (Porcine) 5,000 unit 12/27/23 21:00 01/08/24 08:24 Heparin Sod Inj 5000 Unit/Ml Vial SC 01/10/24 20:59 5,000 unit Q12HR TAL Administration Meropenem 1,000 mg/ Sodium 50 mls @ 100 mls/hr 01/03/24 22:00 01/08/24 15:36 Chloride IV 01/10/24 21:59 100 mls/hr Q8HR TAL Administration Fentanyl Citrate 2,500 mcg in 250 mls @ 2.5 mls/hr 01/06/24 20:47 01/08/24 19:00 Sublimaze Inj 2,500 Mcg/250 Ml Bag IV 01/11/24 20:46 275 mcg/hr .Q24H PRN 27.5 mls/hr PER PROTOCOL Titration Protocol 25 MCG/HR Propofol 1,000 mg in 100 mls @ 2.871 mls/hr 01/06/24 20:48 01/08/24 19:00 Diprivan Ivpb IV 02/05/24 20:47 25 mcg/kg/min .Q24H PRN 14.356 mls/hr PER PROTOCOL Titration Protocol 5 MCG/KG/MIN Fluconazole 200 mg in 100 mls @ 100 mls/hr 01/07/24 09:00 01/08/24 08:24 Diflucan/Ns Ivpb IV 01/14/24 08:59 100 mls/hr QDAY TAL Administration Fat Emulsion-[place] Oil/Soybean Oil 500 mls @ 32 mls/hr 01/09/24 18:00 Clinopid 20% Iv IV 02/08/24 17:59 [id number] TAL Vancomycin HCl/Dextrose 250 mls @ 120 mls/hr 01/08/24 10:00 01/08/24 12:26 Vancomycin/D5w 1,250 Mg Ivpb IV 01/15/24 09:59 120 mls/hr Q12H TAL Administration Protocol Magnesium Sulfate 2 gm/ 2,014 mls @ 100 mls/hr 01/08/24 14:00 01/08/24 15:00 Calcium Gluconate 1 gm/ Amino IV 01/09/24 10:08 100 mls/hr Acids QDAY@1400 ONE Administration Protocol Insulin Glargine 10 unit 01/04/24 14:45 01/07/24 09:02 Insulin Glargine (Lantus) 5 Unit/0.05 Ml (Per 5 Units) SC 02/03/24 14:44 10 unit QDAY TAL Administration Insulin Human Lispro 0 unit 01/04/24 18:00 01/08/24 17:45 Insulin Lispro (Admelog) 1 Unit/0.01 Ml Unit SC 02/03/24 17:59 1 unit Q6HR TAL Administration Protocol Labetalol HCl 10 mg 01/05/24 19:16 01/05/24 22:46 Labetalol Inj 5 Mg/Ml Vial 20 Ml IVP 02/04/24 19:29 10 mg Q6H PRN Administration SBP >170, DBP>110 Melatonin 3 mg 12/28/23 21:00 01/07/24 20:08 Melatonin 3 Mg Tablet PO 01/27/24 20:59 Not Given HS TAL Ondansetron HCl 4 mg 12/21/23 23:31 01/04/24 06:56 Ondansetron Inj 2 Mg/Ml Inj 2 Ml IV 01/20/24 23:30 4 mg Q4HR PRN Administration NAUSEA OR VOMITING Pantoprazole Sodium 40 mg 01/01/24 09:00 01/08/24 08:24 Pantoprazole Inj 40 Mg Vial IVP 01/31/24 08:59 40 mg QDAY TAL Administration Protocol Pharmacy Consult 1 each 01/07/24 11:30 Pharmacy To Dose Vancomycin IV 02/06/24 11:29 QDAY PRN PROTOCOL Sodium Chloride 3 ml 01/06/24 13:04 01/06/24 13:37 Sodium Chloride Rt [place] 0.9% 3 Ml Nebu INH 02/05/24 13:03 3 ml PRN PRN Administration SOLN Plan 43-year-old male no significant past medical history who presented 12/20 with perforated appendicitis with free purulent material in abdomen, underwent laparoscopic appendectomy 12/20. Medicine team consulted 12/22. tachypnea, tachycardia, increased O2 requirement, repeat CT A/P showed pneumoperitoneum,so he had exploratory laparotomy on 12/23 and was found to have small bowel perforation, washout was performed & subsequent diverting ileostomy and wound VAC. 12/28: CT-guided percutaneous drainage catheter placed for subphrenic abscess. 12/31 underwent secondary closure of abdominal incision. Today patient spiked fever at 6 PM 101.5 ?F, tachycardic and tachypneic requiring 5L O2 nasal cannula saturating 99%. Patient appeared to be more fatigued with firm abdomen, general surgery and pulmonology/vinyl top installer spoke to family and discussed possibility of bringing patient back to OR for bowel decompression/irrigation, family agreed and patient was taken to the OR. Findings:Purulent material was seen which was whitish and not foul-smelling, sutures removed, irrigated the wound extensively with saline solution and left #19 round Shel[place]-Weber on the right gutter, then the wound was closed with wound VAC leaving the fascia completely open. Patient tolerated the procedure well and left operating room in stable condition. On arrival to ICU patient intubated, hemodinamically stable. 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 Patient was resumed back on sedation, RASS goal -3 CVS -Tachycardia, in the setting of sepsis, now resolved. Respiratory #Acute hypoxic respiratoy failure -O2 requirements increased today along with tachypnea, in the setting of increased demand from abdominal pathology -Currently intubated post ex lap -Follow up ABGs and adjust vent settings accordingly -Pneumonia right lung base on CT on 12/27, currently on meropenem, to be continued for intraabdominal sepsis till 01/09 Renal #ANITHA -Initial creatinine on admission 2.9, today 1.5, was anuric today, continued improvement in urine output. -Strict I/O GI #Appendicitis, status-post appendectomy 12/20 #Small bowel perforation #Peritonitis #Subcapsular abscess 12/20, laparoscopic appendectomy 12/24, ex lap: small bowel perforation. Diverting ileostomy and peritoneal lavage 12/28, CT-guided percutaneous drainage catheter placed for right subphrenic abscess 12/31, secondary closure of abdominal incision 01/04, CT-guided percutaneous drainage catheter placed with removal 300 cc turbid fluid -Infectious disease consulted -Fluconazole (12/25-), re-started - -Zosyn (12/20-01/02) -> meropenem (01/02-01/09) 01/05: EX lap, abdomen decompression, wound vac in place Endo -Stable Infectious -See GI Disposition: Patient transferred to ICU after surgical exploration, intubated. Diet and fluids: Clinimix 80cc/hr DVT prophylaxis:Heparin Q12hr GI prophylaxis:Pantoprazole CODE STATUS:FULL CODE Villarreal:In place Lines:Peripheral and central Patient's care discussed with attending physician, Dr Cindy Oswald PGY2 Attending Provider Attestation/Addendum Patient seen and examined with above resident, Marisol Oswald MD. I agree with the findings, assessment, and plan of care as documented except for any differences below. Patient continues to slowly improve with reduction in white count. Remains afebrile. Patient's abdominal distention continues to improve with the abdominal wall becoming less tense. Renal function has improved with brisk urine output. Will start to challenge with Lasix to further help reduce third spacing. Patient remains on TPN with large volume, will consider placement of dedicated PICC line to avoid cross-contamination potential for infection. Alternatively will have all not on TPN solutions run through peripheral IV access. Will remove arterial line and Villarreal catheters to minimize risk of infection. Patient is having some stool output but minimal. Notably has metabolic acidosis with hyperchloremia, will discuss with pharmacy about antibiotic solution to include or bicarbonate. At this point he does not have high output from the ileostomy to suggest excessive GI losses. Suspect that this is all due to chloride administration with IV fluid and medications. Patient remains on empiric antibiotic coverage. Wound VAC continues to have good output with plans by surgery to return tomorrow for dressing change. Will continue to maintain on current mechanical ventilation with lung protective settings and progressive hypercapnia with tolerance from mild acidosis. He otherwise remains hemodynamically stable without pressor requirements. Patient did tolerate spontaneous awake trial with plan to minimize sedation during the day and resume overnight. Patient's was updated on plan of care at bedside by myself. Total critical care time: I personally spent 40 minutes for review of physiologic parameters, directing plan of care throughout the day, coordination of care with other specialists, and counseling patient's family at bedside. This is exclusive of time spent teaching housestaff or performing any separate billable procedures. Patient continues to require critical care services for acute hypoxic respiratory failure/postop respiratory failure and severe sepsis with abdominal wall infection. He remains at high risk for increased morbidity and mortality.
[2024-01-08] MEDS: fentaNYL 2,500 MCG/250 ML BAG 2,500 MCG/250 ML BAG 30 MCG IV (21:30)
[2024-01-08] MEDS: MELATONIN 3 MG TABLET PO (21:40)
[2024-01-09] VITALS (32 sets, daily range): BP systolic 105–165; BP diastolic 72–92; PULSE 94–133; RESP 18–30; TEMP 36.7–37.9; O2SAT 95–100; BMI 36.5
[2024-01-09] MEDS: INSULIN LISPRO (AdmeLOG) 1 UNIT/0.01 ML UNIT SC ×5 (00:13→23:31)
[2024-01-09] MEDS: PROPOFOL 1,000 MG IVPB 1,000 MG/100 ML VIAL 17.227 MG IV ×2 (02:59→09:50)
[2024-01-09 04:35] LABS: Base Excess -5 (-3-3); HCO3 22 mEq/L (20-26); Inspired Oxygen, FIO2 35 %; O2 Saturation 98 % (91-98); PCO2 50 mmHg (32.0-48.0); PO2 97 mmHg (83-108); pH, Arterial 7.26 (7.35-7.45)
[2024-01-09 04:36] LABS: Allen Test Performed/OK; Puncture Site Left Radial
[2024-01-09] MEDS: MEROPENEM INJ 1,000 MG in SODIUM CHLORIDE 0.9% (P) 50 ML 100 MG IV ×3 (05:50→21:28)
[2024-01-09] MEDS: fentaNYL 2,500 MCG/250 ML BAG 2,500 MCG/250 ML BAG 30 MCG IV ×2 (05:55→14:19)
[2024-01-09 05:56] LABS: Basophils % (Auto) 0 % (0-2.5); Eosinophils % (Auto) 0 % (0-10); Hematocrit 24.4 % (41.0-53.0); Immature Granulocytes % (Auto) 1 % (0-0); Immature Granulocytes Auto 0.27 Thou/mm3 (0.00-0.00); Lymphocytes # (Auto) 1.9 Thou/mm3 (1.0-4.8); Lymphocytes % (Auto) 10 % (10-50); Mean Corpuscular HGB Conc 31.6 g/dl (31.0-37.0); Mean Corpuscular Hemoglobin 28.9 pg (25.0-35.0); Mean Corpuscular Volume 92 fL (80-100); Monocytes # (Auto) 2.2 Thou/mm3 (0.0-0.8); Monocytes % (Auto) 12 % (0-12); Neutrophils # (Auto) 14.5 Thou/mm3 (1.8-7.7); Neutrophils % (Auto) 77 % (37-80); Nucleated Red Blood Cell # 0.02 Thou/mm3 (0.00-0.00); Nucleated Red Blood Cell % 0 /100 WBC (0); Platelet Count 690 Thou/mm3 (140-440); RDW Standard Deviation 50.2 fL (35.1-43.9); Red Blood Count 2.66 Miln/mm3 (4.50-5.90); White Blood Count 18.9 Thou/mm3 (3.8-10.6)
[2024-01-09 06:07] LABS: Hemoglobin 7.7 g/dL (13.5-16.0)
[2024-01-09 06:28] LABS: Anion Gap 8 (7-16); BUN/Creatinine Ratio 40 Ratio (12-20); Blood Urea Nitrogen 56 mg/dL (9-23); Carbon Dioxide 21.3 mMol/L (20.0-31.0); Chloride 110 mMol/L (98-107); Creatinine (Component) 1.4 mg/dL (0.6-1.3); Sodium 139 mMol/L (136-145)
[2024-01-09 06:29] LABS: Calcium 7.9 mg/dL (8.3-10.6); Estimated Creatinine Clearance 72.3 mL/min (>60); Glucose 147 mg/dL (74-106); Osmolality,Calculated 296 (275-295); Triglycerides 422 mg/dL (30-150); eGFR > 60 See Note
[2024-01-09] MEDS: FLUCONAZOLE/NS 200 MG IVPB 200 MG/100 ML BAG 100 MG IV (08:45)
[2024-01-09] MEDS: PANTOPRAZOLE INJ 40 MG VIAL IVP (08:49)
[2024-01-09] MEDS: FUROSEMIDE INJ 10 MG/ML 4ML VIAL 40 MG IVP (08:49)
[2024-01-09] MEDS: HEPARIN SOD INJ 5000 UNIT/ML VIAL SC ×2 (08:49→21:28)
[2024-01-09] MEDS: INSULIN GLARGINE (Lantus) 5 UNIT/0.05 ML (PER 5 UNITS) 10 UNIT SC (08:56)
[2024-01-09 10:22] LABS: Vancomycin,Trough 30.1 mcg/mL (5.0-10.0)
--- NOTE | 2024-01-09 10:44 | XR_ITS ---
Examination: Ultrasound right hemithorax Ultrasound left hemithorax Exam date and time: January 09, 2024 1116 hours INDICATIONS: Difficulty breathing, ICU patient, right pleural fluid on chest x-ray January 07, 2024 TECHNIQUE AND FINDINGS: Multiple high resolution grayscale sonographic images right and left hemithoraces Mild right pleural fluid No left pleural fluid IMPRESSION: Mild right pleural fluid
--- NOTE | 2024-01-09 10:48 | XR_ITS ---
Examination: CT-guided percutaneous placement chest tube right hemithorax CT chest without intravenous contrast Date and time of procedure: January 09, 2024 1425 hours INDICATIONS: Recurrent right pleural effusions SOB this week Informed consent provided. A timeout was completed verifying correct patient, procedure, site and positioning. Technique: Axial 3 mm sections were obtained for localization of the right pleural fluid Appropriate area is marked. The patient's site was prepped and draped in sterile fashion Maximal sterile barrier technique utilized, including hand hygiene Local anesthesia was obtained with 1% lidocaine. Low dose protocols were performed. One or more of the following dose reduction techniques were used; automated exposure control, adjustment of the mA and/or KV according to patient size, use of iterative reconstruction technique. Utilizing CT fluoroscopic guidance 5 Irish catheter placed in the pleural space 0.35 wire guide been introduced through the catheter followed by a 6 Irish pigtail drainage catheter in the right pleural space Patient appears in stable condition during this procedure. At completion of the procedure, the patient is in satisfactory condition. Estimated blood loss 2 cc Impression: Successful CT-guided percutaneous placement drainage catheter right hemithorax
[2024-01-09] MEDS: RINGERS LACTATED 500 ML 500 ML 999 ML IV (11:00)
[2024-01-09 11:21] LABS: Prothrombin Time 11.1 Seconds (9.0-12.2)
--- NOTE | 2024-01-09 11:29 | XR_ITS ---
Examination: AP chest single view TECHNIQUE: AP portable semiupright chest single view Exam date and time: January 09, 2024 1135 hours INDICATIONS: Difficulty breathing this week FINDINGS: Tracheal tube tip 21 mm above jose cruz Right internal jugular central line tip SVC Mild enlargement cardiac contour Diffuse opacity in the right lung, consider pneumonia Moderate right pleural effusion Orogastric tube in the stomach IMPRESSION: Moderate right pleural effusion, amenable to ultrasound-guided thoracentesis
--- NOTE | 2024-01-09 12:27 | ESPR_ITS ---
<Statement entered by García Win MD - 01/10/24 13:21> Agree with above. place chest tube. daily sbt. Cumulative time spent in management of patient is 45 min excluding procedure Documentation for date of: 01/09/24 Subjective Subjective Interval history: Th patient is a 43-year-old male no significant past medical history who presented 12/20 with perforated appendicitis with free purulent material in abdomen, underwent laparoscopic appendectomy 12/20. Medicine team consulted 12/22. tachypnea, tachycardia, increased O2 requirement, repeat CT A/P showed pneumoperitoneum,so he had exploratory laparotomy on 12/23 and was found to have small bowel perforation, washout was performed & subsequent diverting ileostomy and wound VAC. 12/28: CT-guided percutaneous drainage catheter placed for subphrenic abscess. 12/31 underwent secondary closure of abdominal incision. 01/06/24 patient spiked fever at 6 PM 101.5 ?F, tachycardic and tachypneic requiring 5L O2 nasal cannula saturating 99%. Patient appeared to be more fatigued with firm abdomen, general surgery and pulmonology/charge attendant spoke to family and discussed possibility of bringing patient back to OR for bowel decompression/irrigation, family agreed and patient was taken to the OR. Findings:Purulent material was seen which was whitish and not foul-smelling, sutures removed, irrigated the wound extensively with saline solution and left #19 round Shel[place]-Weber on the right gutter, then the wound was closed with wound VAC leaving the fascia completely open. Patient tolerated the procedure well and left operating room in stable condition. On arrival to ICU patient intubated, hemodynamically stable. 01/07/2024, patient evaluated bedside, currently on mechanical ventilation, moderate sedation, spontaneous awakening trial done, able to follow commands, spoke to general surgeon Dr. Rubio, recommended continuing with medical management, no further surgical intervention required at this point, allow for wound closure by secondary intention, continue with wound VAC. Will add vancomycin for abdominal wall infection, continue with meropenem and fluconazole for intra-abdominal sepsis. Patient will be continued on PPN, lipid formulations adjusted for propofol. Added a.m. triglyceride labs. continue with sedation and mechanical ventilation for now. 01/08/2024, patient evaluated at the bedside, currently on mechanical ventilation,SAT and SBT done, minimal ventilatory requirements, labs pertinent for non aniongap metabolic acidosis and hyperchloremia, requested dietary to adjust TPN formulation for lower chloride content. Resolving ANITHA, urine output improving. Scant collection in VANESSA drain and NG tube, 100 ml in wound vac. Gen surg recommends continuing with sedation for 2 more days and for metabolic acidosis to resolve before extubation. per surgery, illeostomy working, GI tract available for feeding, can consider tube feeds tomorrow if pt tolerates. 01/09/2024, patient seen at the bedside, continues to be on mechanical ventilation, RASS -3, labs showed leukocytosis, anemia, elevated platelets. Arterial blood gases showed respiratory acidosis, RR was increased to 28, bedside ultrasound and chest x-ray showed right pleural effusion. CT-guided thoracentesis with chest tube placement was done today. Spoke to Dr. Rubio, no surgical interventions at this time planned, recommended continuing with medical management. Exam Vital Signs Temp Pulse Resp BP Pulse Ox O2 Del Method O2 Flow Rate 100.2 F 133 H 27 H 160/92 H 95 Mechanical Ventilation 2 01/09/24 08:00 01/09/24 10:14 01/09/24 06:00 01/09/24 10:14 01/09/24 10:14 01/09/24 08:00 01/06/24 16:00 FiO2 35 01/09/24 10:14 Narrative Exam Gen: sedated, RASS -3. HEENT: NCAT, PERRLA, EOMI, MMM, anicteric conjunctivae. CVS: normal S1 and S2. RRR. No M/R/G. Resp: CTA B/L. No rhonchi, rales, crackles or wheezing. Abd: midline postop large wound with VAC, ileostomy with bag. MSK: Good ROM in BUE & BLE. No edema or rash. Neuro: CN II-XII grossly intact. Strength 5/5 in BUE & BLE. Alert and oriented x3. Psych: appropriate mood and affect. Objective Labs 01/10/24 04:48 01/10/24 04:48 Labs: Laboratory Results - last 24 hr 01/09/24 01/09/24 01/09/24 04:14 04:36 08:55 WBC 18.9 H RBC 2.66 L Hgb 7.7 L Hct 24.4 L MCV 92 MCH 28.9 MCHC 31.6 RDW Std Deviation 50.2 H Plt Count 690 H D Neut % (Auto) 77 Lymph % (Auto) 10 [place] % (Auto) 12 Eos % (Auto) 0 Baso % (Auto) 0 Neut # (Auto) 14.5 H Lymph # (Auto) 1.9 [place] # (Auto) 2.2 H Eos # (Auto) 0.0 Baso # (Auto) 0.0 Immature Gran # (Auto) 0.27 H Absolute Nucleated RBC 0.02 H Immature Gran % 1 H Nucleated RBC % 0 PT 11.1 INR 1.0 Puncture Site Left Radial ABG pH 7.26 L ABG pCO2 50 H ABG pO2 97 ABG HCO3 22 ABG O2 Saturation 98 ABG Base Excess -5 L FiO2 35 Sodium 139 Potassium 4.0 Chloride 110 H Carbon Dioxide 21.3 Anion Gap 8 BUN 56 H Creatinine 1.4 H Estim Creat Clear Calc 72.3 eGFR > 60 BUN/Creatinine Ratio 40 H Glucose 147 H Calculated Osmolality 296 H Calcium 7.9 L D Triglycerides 422 H Vancomycin Trough 30.1 H* ABG Interpretation ABG results: 12/21/23 12/24/23 12/25/23 15:50 19:45 02:34 ABG pH 7.40 7.23 L D ABG pCO2 40 56 H D ABG pO2 134 H 229 H D ABG HCO3 25 24 ABG O2 Saturation 99 H 100 H ABG Base Excess 0 -5 L VBG pH 7.48 VBG pCO2 35 L VBG pO2 56 VBG Base Excess 2 12/25/23 12/25/23 12/26/23 04:54 10:48 06:56 ABG pH 7.25 L 7.33 L 7.34 L ABG pCO2 52 H 45 43 ABG pO2 93 D 99 95 ABG HCO3 23 23 23 ABG O2 Saturation 97 98 98 ABG Base Excess -5 L -3 -2 VBG pH VBG pCO2 VBG pO2 VBG Base Excess 12/26/23 01/05/24 01/06/24 10:15 08:13 13:50 ABG pH 7.36 7.37 7.42 ABG pCO2 41 38 30 L ABG pO2 87 75 L 90 ABG HCO3 23 22 19 L ABG O2 Saturation 98 96 98 ABG Base Excess -2 -3 -5 L VBG pH VBG pCO2 VBG pO2 VBG Base Excess 10/01/07/24 01/07/24 21:44 00:30 04:35 ABG pH 7.12 L* D 7.22 L D 7.27 L ABG pCO2 69 H D 52 H D 45 ABG pO2 261 H D 161 H D 209 H D ABG HCO3 22 21 21 ABG O2 Saturation 100 H 99 H 100 H ABG Base Excess -7 L -6 L -6 L VBG pH VBG pCO2 VBG pO2 VBG Base Excess 01/08/24 01/09/24 04:50 04:14 ABG pH 7.24 L 7.26 L ABG pCO2 47 50 H ABG pO2 97 D 97 ABG HCO3 20 22 ABG O2 Saturation 98 98 ABG Base Excess -7 L -5 L VBG pH VBG pCO2 VBG pO2 VBG Base Excess Quality Measures Quality Measures VTE prophylaxis Assessment & Plan Assessment Current Active Medications: Generic Name Dose Route Start Last Admin Trade Name Freq PRN Reason Stop Dose Admin Acetaminophen 650 mg 12/31/23 13:25 01/02/24 00:03 Acetaminophen 325 Mg Tablet PO 01/20/24 23:30 650 mg Q6HR PRN Administration Pain (1-3) and FEVER>100.3 Dextrose 25 ml 01/04/24 14:37 Dextrose 50%-Water Inj 50 Ml Syringe IV 02/03/24 14:36 Q15MIN PRN BG 50-70 responsive npo pt Dextrose 50 ml 01/04/24 14:37 Dextrose 50%-Water Inj 50 Ml Syringe IV 02/03/24 14:36 Q15MIN PRN BG <50 OR BG <70 & pt unresponsive Furosemide 40 mg 01/08/24 09:45 01/09/24 08:49 Furosemide Inj 10 Mg/Ml 4ml Vial IVP 02/07/24 09:44 40 mg QDAY TAL Administration Glucagon 1 mg 01/07/24 11:34 Glucagon Inj 1 Mg Vial IM Q15MIN PRN BG <70, and no IV access Heparin Sodium (Porcine) 5,000 unit 12/27/23 21:00 01/09/24 08:49 Heparin Sod Inj 5000 Unit/Ml Vial SC 01/10/24 20:59 5,000 unit Q12HR TAL Administration Meropenem 1,000 mg/ Sodium 50 mls @ 100 mls/hr 01/03/24 22:00 01/09/24 05:50 Chloride IV 01/10/24 21:59 100 mls/hr Q8HR TAL Administration Fentanyl Citrate 2,500 mcg in 250 mls @ 2.5 mls/hr 01/06/24 20:47 01/09/24 10:00 Sublimaze Inj 2,500 Mcg/250 Ml Bag IV 01/11/24 20:46 300 mcg/hr .Q24H PRN 30 mls/hr PER PROTOCOL Titration Protocol 25 MCG/HR Propofol 1,000 mg in 100 mls @ 2.871 mls/hr 01/06/24 20:48 01/09/24 10:00 Diprivan Ivpb IV 02/05/24 20:47 30 mcg/kg/min .Q24H PRN 17.227 mls/hr PER PROTOCOL Titration Protocol 5 MCG/KG/MIN Fluconazole 200 mg in 100 mls @ 100 mls/hr 01/07/24 09:00 01/09/24 08:45 Diflucan/Ns Ivpb IV 01/14/24 08:59 100 mls/hr QDAY ATL Administration Amino Acids 1,000 mls @ 100 mls/hr 01/10/24 11:00 Clinimix 5/20 IV 01/10/24 20:59 QDAY@1000 ONE Protocol Insulin Glargine 10 unit 01/04/24 14:45 01/09/24 08:56 Insulin Glargine (Lantus) 5 Unit/0.05 Ml (Per 5 Units) SC 02/03/24 14:44 10 unit QDAY TAL Administration Insulin Human Lispro 0 unit 01/04/24 18:00 01/09/24 05:51 Insulin Lispro (Admelog) 1 Unit/0.01 Ml Unit SC 02/03/24 17:59 1 unit Q6HR TAL Administration Protocol Labetalol HCl 10 mg 01/05/24 19:16 01/05/24 22:46 Labetalol Inj 5 Mg/Ml Vial 20 Ml IVP 02/04/24 19:29 10 mg Q6H PRN Administration SBP >170, DBP>110 Melatonin 3 mg 12/28/23 21:00 01/08/24 21:40 Melatonin 3 Mg Tablet PO 01/27/24 20:59 3 mg HS TAL Administration Ondansetron HCl 4 mg 12/21/23 23:31 01/04/24 06:56 Ondansetron Inj 2 Mg/Ml Inj 2 Ml IV 01/20/24 23:30 4 mg Q4HR PRN Administration NAUSEA OR VOMITING Pantoprazole Sodium 40 mg 01/01/24 09:00 01/09/24 08:49 Pantoprazole Inj 40 Mg Vial IVP 01/31/24 08:59 40 mg QDAY TAL Administration Protocol Pharmacy Consult 1 each 01/07/24 11:30 Pharmacy To Dose Vancomycin IV 02/06/24 11:29 QDAY PRN PROTOCOL Sodium Chloride 3 ml 01/06/24 13:04 01/06/24 13:37 Sodium Chloride Rt [place] 0.9% 3 Ml Nebu INH 02/05/24 13:03 3 ml PRN PRN Administration SOLN Plan The patient is a 43-year-old male no significant past medical history who presented 12/20 with perforated appendicitis with free purulent material in abdomen, underwent laparoscopic appendectomy 12/20 who was admitted to the ICU after exploratory laparotomy due to deterioration of condition. NEURO Patient is sedated, RASS -3. Receives fentanyl and propofol. CARDIO Sinus tachycardia, possibly due to infection. PULM #Right sided pleural effusion Patient is on mechanical ventilation, RR 27, FiO2 35. Imaging showed moderate pleural effusion. AM ABG showed hypercapnic respiratory acidosis, RR was changed to 27. Will continue mechanical ventilation. GI #Acute appendicitis, status-post appendectomy 12/20 #Small bowel perforation, s/p exploratory laparotomy 12/23, 01/05 #Peritonitis #Subcapsular abscess 12/20, laparoscopic appendectomy 12/24, ex lap: small bowel perforation. Diverting ileostomy and peritoneal lavage 12/28, CT-guided percutaneous drainage catheter placed for right subphrenic abscess 12/31, secondary closure of abdominal incision 01/04, CT-guided percutaneous drainage catheter placed with removal 300 cc turbid fluid -Infectious disease consulted -Fluconazole (12/25-), re-started - -Zosyn (12/20-01/02) -> meropenem (01/02-01/09) - Vancomycin renally dosed (01/06- ) 01/05: EX lap, abdomen decompression, wound vac in place - continue TPN - NPO - Wound care - Renally dose Vancomycin - meropenem (01/02-01/09) - Vancomycin renally dosed (01/06- ) NEPHRO #ANITHA, improving. 01/08 Cr 1.4 URO #No active problems HEME #Moderate anemia No signs of acute blood loss. ENDO #Hyperglycemia Patient does not have a history of diabetes. hbA1 5.8% Patient was having high blood sugar on TPN. - SSI ID #Peritonitis #Subcapsular abscess -Infectious disease consulted -Fluconazole (12/25-), re-started - -Zosyn (12/20-01/02) -> meropenem (01/02-01/09) MSK #No active problems SKIN #No active problems DVT prophylaxis: heparin sc GI prophylaxis: pantoprazole Diet: NPO, TPN Villarreal: no, condom catheter Lines: peripheral, central lines Antibiotics: Meropenem, Vancomycin CODE STATUS: FULL CODE Plan of care discussed with attending Dr. Win, PGY-[address] De La Paz and PGY-[address] Andrade. Valencia Bailon MD, PGY 1. Patient was seen and examined by me personally. I have directly supervised and reviewed the above documentation by the team resident and agree with its findings with any exceptions or additional findings as below. Plan of care was discussed with the attending, Dr. Win. Ellen De La Paz, PGY-2
[2024-01-09] MEDS: AMINO ACID IV (12:45)
[2024-01-09] MEDS: [UNRECOGNIZED DRUG - OTHER] IV (12:45)
--- NOTE | 2024-01-09 13:46 | PC.SS ---
Update: Patient to have chest tube placed on right side. Patient remains intubated. Wound vac in place. No pressors. Central line is in place.
[2024-01-09] MEDS: PROPOFOL 1,000 MG IVPB 1,000 MG/100 ML VIAL 22.97 MG IV ×3 (14:19→23:32)
--- NOTE | 2024-01-09 15:11 | PC.NURSE ---
patient in: 14:02 time out: 14:29 Start: 14:48 End: 14:56 Out: 15:09 pt came down from ICU with RT and RN Suzan for a CT Guided chest tube placement. procedure completed without any complications. pt will be taken back up by Suzan TURCIOS
[2024-01-09 15:54] LABS: Base Excess -4 (-3-3); HCO3 23 mEq/L (20-26); O2 Saturation 97 % (91-98); PCO2 51 mmHg (32.0-48.0); PO2 90 mmHg (83-108); pH, Arterial 7.27 (7.35-7.45)
[2024-01-09 16:02] LABS: Allen Test Not Performed; Puncture Site Right Radial
[2024-01-09 16:03] LABS: Inspired Oxygen, FIO2 35 %
--- NOTE | 2024-01-09 16:15 | PC.WOUND ---
Midline abdominal wound vac dressing changed with Dr. Rubio at bedside. Sterile dressing change with single piece of black foam removed from wound bed. Dr. Rubio removed single piece of plastic drape removed at beside. Gel like blood clots removed by MD. Wound bed is beefy red with no visible bowel structures, omentem closed. Single piece of black foam replaced with good seal at 125mmgh continuos suction. Right abdomen jimi drain intact with bloody clots in tubing, suture at skin line intact. Ileostomy pouch replaced. Stoma remains protruding, pink with yellow adherent fibrous tissue. Mayela stoma skin intact. Good seal with 2 piece pouch appliance. Pt tolerated well. No new orders obtained from MD. Plan to change dressing with MD on Friday.
[2024-01-09] MEDS: fentaNYL 2,500 MCG/250 ML BAG 2,500 MCG/250 ML BAG 25 MCG IV (22:48)
[2024-01-09] MEDS: TPN-OUTSOURCED 1.5L - 2.49L 2,000 ML 100 ML IV (23:12)
[2024-01-10] VITALS (31 sets, daily range): BP systolic 125–160; BP diastolic 76–93; PULSE 102–124; RESP 21–30; TEMP 37–37.6; O2SAT 92–99
[2024-01-10] MEDS: PROPOFOL 1,000 MG IVPB 1,000 MG/100 ML VIAL 22.97 MG IV ×4 (04:15→18:17)
[2024-01-10] MEDS: MEROPENEM INJ 1,000 MG in SODIUM CHLORIDE 0.9% (P) 50 ML 100 MG IV ×2 (05:12→14:02)
[2024-01-10] MEDS: INSULIN LISPRO (AdmeLOG) 1 UNIT/0.01 ML UNIT SC ×3 (05:12→17:52)
[2024-01-10 05:23] LABS: Base Excess -3 (-3-3); HCO3 23 mEq/L (20-26); O2 Saturation 98 % (91-98); PCO2 43 mmHg (32.0-48.0); PO2 101 mmHg (83-108); pH, Arterial 7.33 (7.35-7.45)
[2024-01-10 05:27] LABS: Allen Test Performed/OK; Inspired Oxygen, FIO2 35 %; Puncture Site Right Radial
[2024-01-10 06:11] LABS: Basophils # (Auto) 0.1 Thou/mm3 (0.0-0.2); Basophils % (Auto) 0 % (0-2.5); Eosinophils # (Auto) 0.1 Thou/mm3 (0.0-0.5); Eosinophils % (Auto) 1 % (0-10); Hematocrit 26.5 % (41.0-53.0); Immature Granulocytes % (Auto) 1 % (0-0); Immature Granulocytes Auto 0.25 Thou/mm3 (0.00-0.00); Lymphocytes # (Auto) 2.1 Thou/mm3 (1.0-4.8); Lymphocytes % (Auto) 10 % (10-50); Mean Corpuscular HGB Conc 32.5 g/dl (31.0-37.0); Mean Corpuscular Hemoglobin 29.3 pg (25.0-35.0); Mean Corpuscular Volume 90 fL (80-100); Monocytes # (Auto) 2.1 Thou/mm3 (0.0-0.8); Monocytes % (Auto) 10 % (0-12); Neutrophils # (Auto) 15.4 Thou/mm3 (1.8-7.7); Neutrophils % (Auto) 77 % (37-80); Nucleated Red Blood Cell % 0 /100 WBC (0); Platelet Count 617 Thou/mm3 (140-440); RDW Standard Deviation 48.1 fL (35.1-43.9); Red Blood Count 2.94 Miln/mm3 (4.50-5.90)
[2024-01-10 06:12] LABS: Hemoglobin 8.6 g/dL (13.5-16.0)
[2024-01-10 06:24] LABS: Anion Gap 6 (7-16); BUN/Creatinine Ratio 39 Ratio (12-20); Blood Urea Nitrogen 51 mg/dL (9-23); Calcium 8.1 mg/dL (8.3-10.6); Carbon Dioxide 23.7 mMol/L (20.0-31.0); Chloride 108 mMol/L (98-107); Creatinine (Component) 1.3 mg/dL (0.6-1.3); Estimated Creatinine Clearance 76.9 mL/min (>60); Glucose 163 mg/dL (74-106); Osmolality,Calculated 293 (275-295); Potassium 3.7 mMol/L (3.4-5.1); Sodium 138 mMol/L (136-145); Triglycerides 542 mg/dL (30-150); Vancomycin,Random 13.8 mcg/mL; eGFR > 60 See Note
--- NOTE | 2024-01-10 07:00 | XR_ITS ---
Examination: AP chest single view Technique: AP portable semiupright chest single view Exam date and time: January 10, 2024 0433 hrs. Comparison January 09, 2024 Indications: Hypoxic respiratory failure, right pleural fluid post chest tube placement on the right yesterday Findings: Decrease in right pleural fluid Right chest tube satisfactory position Mild prominence cardiac contour with prominent vascular congestion Tracheal tube tip 3.4 cm above jose cruz Right internal jugular central line tip satisfactory position Impression: Right chest tube satisfactory position with decrease in right pleural fluid
[2024-01-10] MEDS: fentaNYL 2,500 MCG/250 ML BAG 2,500 MCG/250 ML BAG 30 MCG IV (07:56)
[2024-01-10] MEDS: PANTOPRAZOLE INJ 40 MG VIAL IVP (09:27)
[2024-01-10] MEDS: HEPARIN SOD INJ 5000 UNIT/ML VIAL SC (09:28)
[2024-01-10] MEDS: FLUCONAZOLE/NS 200 MG IVPB 200 MG/100 ML BAG 100 MG IV (09:28)
[2024-01-10] MEDS: FUROSEMIDE INJ 10 MG/ML 4ML VIAL 40 MG IVP (09:28)
[2024-01-10] MEDS: INSULIN GLARGINE (Lantus) 5 UNIT/0.05 ML (PER 5 UNITS) 10 UNIT SC (09:28)
--- NOTE | 2024-01-10 10:23 | PD.SURPROG ---
Documentation for date of: 01/10/24 Subjective Subjective Brief History: As above Narrative: Patient's condition is essentially unchanged. Exam Vital Signs Temp Pulse Resp BP Pulse Ox O2 Del Method O2 Flow Rate 98.6 F 120 H 28 H 138/91 H 99 Mechanical Ventilation 2 01/10/24 07:00 01/10/24 09:28 01/10/24 06:00 01/10/24 09:28 01/10/24 08:00 01/10/24 07:00 01/06/24 16:00 FiO2 30 01/10/24 08:00 Vital signs are stable other than tachycardia which may be secondary to him waking up. Routine Abdominal Exam Comments: Wound VAC was changed yesterday with the wound care nurse and it seems to be keeping the abdominal wound reasonably clean Results Results: Laboratory Laboratory Narrative: WBC shows slightly elevated to 20,000 Results: Imaging Additional studies: Chest x-ray looks better after drainage of the pleural fluid Assessment & Plan Assessment Additional comments: Impression: Stable postoperative course waiting to be extubated Plan Plan: We shall continue TPN on him because I am not sure which he will be able to tolerate the tube feeding even though that is the best way to support the nutritional status. Procedures Procedures Exploratory laparotomy and drainage of the subcutaneous infection and wound VAC application
[2024-01-10] MEDS: VANCOMYCIN/NS 750 MG IVPB 750 MG/150 ML BAG 120 MG IV ×2 (10:53→21:04)
[2024-01-10 12:29] LABS: Pleural Fluid WBC 57 /cmm
[2024-01-10 12:30] LABS: Pleural Fluid Appearance Hazy; Pleural Fluid Color Yellow; Pleural Fluid Mononuclear 72 %; Pleural Fluid Polynuclear 28 %; Pleural Fluid RBC 1000 /cmm
[2024-01-10 12:32] LABS: Amylase,Pleural Fluid 49 IU/L; Glucose,Pleural Fluid 132 mg/dL; LDH,Pleural Fluid 463 IU/L; Protein Total,Pleural Fluid 3.5 g/dL
--- NOTE | 2024-01-10 17:46 | PD.RESPRO ---
Documentation for date of: 01/10/24 Subjective Subjective Interval history: Th patient is a 43-year-old male no significant past medical history who presented 12/20 with perforated appendicitis with free purulent material in abdomen, underwent laparoscopic appendectomy 12/20. Medicine team consulted 12/22. tachypnea, tachycardia, increased O2 requirement, repeat CT A/P showed pneumoperitoneum,so he had exploratory laparotomy on 12/23 and was found to have small bowel perforation, washout was performed & subsequent diverting ileostomy and wound VAC. 12/28: CT-guided percutaneous drainage catheter placed for subphrenic abscess. 12/31 underwent secondary closure of abdominal incision. 01/06/24 patient spiked fever at 6 PM 101.5 ?F, tachycardic and tachypneic requiring 5L O2 nasal cannula saturating 99%. 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 Findings:Purulent material was seen which was whitish and not foul-smelling, sutures removed, irrigated the wound extensively with saline solution and left #19 round [place]We[place] on the right gutter, then the wound was closed with wound VAC leaving the fascia completely open. Patient tolerated the procedure well and left operating room in stable condition. On arrival to ICU patient intubated, hemodynamically stable. 01/07/2024, patient evaluated bedside, currently on mechanical ventilation, moderate sedation, spontaneous awakening trial done, able to follow commands, spoke to general surgeon Dr. Rubio, recommended continuing with medical management, no further surgical intervention required at this point, allow for wound closure by secondary intention, continue with wound VAC. Will add vancomycin for abdominal wall infection, continue with meropenem and fluconazole for intra-abdominal sepsis. Patient will be continued on PPN, lipid formulations adjusted for propofol. Added a.m. triglyceride labs. continue with sedation and mechanical ventilation for now. 01/08/2024, patient evaluated at the bedside, currently on mechanical ventilation,SAT and SBT done, minimal ventilatory requirements, labs pertinent for non aniongap metabolic acidosis and hyperchloremia, requested dietary to adjust TPN formulation for lower chloride content. Resolving ANITHA, urine output improving. Scant collection in VANESSA drain and NG tube, 100 ml in wound vac. Gen surg recommends continuing with sedation for 2 more days and for metabolic acidosis to resolve before extubation. per surgery, illeostomy working, GI tract available for feeding, can consider tube feeds tomorrow if pt tolerates. 01/09/2024, patient seen at the bedside, continues to be on mechanical ventilation, RASS -3, labs showed leukocytosis, anemia, elevated platelets. Arterial blood gases showed respiratory acidosis, RR was increased to 28, bedside ultrasound and chest x-ray showed right pleural effusion. CT-guided thoracentesis with chest tube placement was done today. Spoke to Dr. Rubio, no surgical interventions at this time planned, recommended continuing with medical management. 01/10/2024 patient continues to be on mechanical ventilation, was agitated, failed SBT. Will try again tomorrow. Labs showed leukocytosis, anemia, elevated platelets. Arterial blood gases showed acidosis improved compared to yesterday. Patient had a chest tube placed yesterday, overnight drained 250 ml. Pleural fluid was sent for labs, showed protein 3.5, LDH 463, likely exudative. Patient continues to be on TPN. Exam Vital Signs Temp Pulse Resp BP Pulse Ox O2 Del Method O2 Flow Rate 98.9 F 112 H 28 H 134/84 H 99 Mechanical Ventilation 2 01/10/24 16:00 01/10/24 17:00 01/10/24 06:00 01/10/24 17:00 01/10/24 17:00 01/10/24 07:00 01/06/24 16:00 FiO2 35 01/10/24 16:00 Narrative Exam Gen: sedated, RASS -3. HEENT: NCAT, PERRLA, EOMI, MMM, anicteric conjunctivae. CVS: normal S1 and S2. RRR. No M/R/G. Resp: CTA B/L. No rhonchi, rales, crackles or wheezing. Abd: midline postop large wound with VAC, ileostomy with bag. MSK: Good ROM in BUE & BLE. No edema or rash. Neuro: CN II-XII grossly intact. Strength 5/5 in BUE & BLE. Alert and oriented x3. Psych: appropriate mood and affect. Objective Labs 01/10/24 04:48 01/10/24 04:48 Labs: Laboratory Results - last 24 hr 01/06/24 01/10/24 01/10/24 18:47 04:48 04:52 WBC 20.0 H RBC 2.94 L Hgb 8.6 L Hct 26.5 L MCV 90 MCH 29.3 MCHC 32.5 RDW Std Deviation 48.1 H Plt Count 617 H D Neut % (Auto) 77 Lymph % (Auto) 10 [place] % (Auto) 10 Eos % (Auto) 1 Baso % (Auto) 0 Neut # (Auto) 15.4 H Lymph # (Auto) 2.1 [place] # (Auto) 2.1 H Eos # (Auto) 0.1 Baso # (Auto) 0.1 Immature Gran # (Auto) 0.25 H Absolute Nucleated RBC 0.00 Immature Gran % 1 H Nucleated RBC % 0 Puncture Site Right Radial ABG pH 7.33 L ABG pCO2 43 ABG pO2 101 ABG HCO3 23 ABG O2 Saturation 98 ABG Base Excess -3 FiO2 35 Sodium 138 Potassium 3.7 Chloride 108 H Carbon Dioxide 23.7 Anion Gap 6 L BUN 51 H Creatinine 1.3 Estim Creat Clear Calc 76.9 eGFR > 60 BUN/Creatinine Ratio 39 H Glucose 163 H Calculated Osmolality 293 Calcium 8.1 L Triglycerides 542 H Pleural Color Pleural Appearance Pleural WBC Pleural RBC Pleural Polynuclear WBC Pleural Mononuclear WBC Pleural Total Protein Pleural LDH Pleural Glucose Pleural Amylase Random Vancomycin 13.8 Crossmatch See Detail 01/10/24 11:34 WBC RBC Hgb Hct MCV MCH MCHC RDW Std Deviation Plt Count Neut % (Auto) Lymph % (Auto) [place] % (Auto) Eos % (Auto) Baso % (Auto) Neut # (Auto) Lymph # (Auto) [place] # (Auto) Eos # (Auto) Baso # (Auto) Immature Gran # (Auto) Absolute Nucleated RBC Immature Gran % Nucleated RBC % Puncture Site ABG pH ABG pCO2 ABG pO2 ABG HCO3 ABG O2 Saturation ABG Base Excess FiO2 Sodium Potassium Chloride Carbon Dioxide Anion Gap BUN Creatinine Estim Creat Clear Calc eGFR BUN/Creatinine Ratio Glucose Calculated Osmolality Calcium Triglycerides Pleural Color Yellow Pleural Appearance Hazy Pleural WBC 57 Pleural RBC 1000 Pleural Polynuclear WBC 28 Pleural Mononuclear WBC 72 Pleural Total Protein 3.5 Pleural LDH 463 Pleural Glucose 132 Pleural Amylase 49 Random Vancomycin Crossmatch ABG Interpretation ABG results: 12/21/23 12/24/23 12/25/23 15:50 19:45 02:34 ABG pH 7.40 7.23 L D ABG pCO2 40 56 H D ABG pO2 134 H 229 H D ABG HCO3 25 24 ABG O2 Saturation 99 H 100 H ABG Base Excess 0 -5 L VBG pH 7.48 VBG pCO2 35 L VBG pO2 56 VBG Base Excess 2 12/25/23 12/25/23 12/26/23 04:54 10:48 06:56 ABG pH 7.25 L 7.33 L 7.34 L ABG pCO2 52 H 45 43 ABG pO2 93 D 99 95 ABG HCO3 23 23 23 ABG O2 Saturation 97 98 98 ABG Base Excess -5 L -3 -2 VBG pH VBG pCO2 VBG pO2 VBG Base Excess 12/26/23 01/05/24 01/06/24 10:15 08:13 13:50 ABG pH 7.36 7.37 7.42 ABG pCO2 41 38 30 L ABG pO2 87 75 L 90 ABG HCO3 23 22 19 L ABG O2 Saturation 98 96 98 ABG Base Excess -2 -3 -5 L VBG pH VBG pCO2 VBG pO2 VBG Base Excess 01/06/24 01/07/24 01/07/24 21:44 00:30 04:35 ABG pH 7.12 L* D 7.22 L D 7.27 L ABG pCO2 69 H D 52 H D 45 ABG pO2 261 H D 161 H D 209 H D ABG HCO3 22 21 21 ABG O2 Saturation 100 H 99 H 100 H ABG Base Excess -7 L -6 L -6 L VBG pH VBG pCO2 VBG pO2 VBG Base Excess 01/08/24 01/09/24 01/09/24 04:50 04:14 15:49 ABG pH 7.24 L 7.26 L 7.27 L ABG pCO2 47 50 H 51 H ABG pO2 97 D 97 90 ABG HCO3 20 22 23 ABG O2 Saturation 98 98 97 ABG Base Excess -7 L -5 L -4 L VBG pH VBG pCO2 VBG pO2 VBG Base Excess 01/10/24 04:52 ABG pH 7.33 L ABG pCO2 43 ABG pO2 101 ABG HCO3 23 ABG O2 Saturation 98 ABG Base Excess -3 VBG pH VBG pCO2 VBG pO2 VBG Base Excess Quality Measures Quality Measures VTE prophylaxis Assessment & Plan Assessment Current Active Medications: Generic Name Dose Route Start Last Admin Trade Name Naun PRN Reason Stop Dose Admin Acetaminophen 650 mg 12/31/23 13:25 01/02/24 00:03 Acetaminophen 325 Mg Tablet PO 01/20/24 23:30 650 mg Q6HR PRN Administration Pain (1-3) and FEVER>100.3 Dextrose 25 ml 01/04/24 14:37 Dextrose 50%-Water Inj 50 Ml Syringe IV 02/03/24 14:36 Q15MIN PRN BG 50-70 responsive npo pt Dextrose 50 ml 01/04/24 14:37 Dextrose 50%-Water Inj 50 Ml Syringe IV 02/03/24 14:36 Q15MIN PRN BG <50 OR BG <70 & pt unresponsive Furosemide 40 mg 01/08/24 09:45 01/10/24 09:28 Furosemide Inj 10 Mg/Ml 4ml Vial IVP 02/07/24 09:44 40 mg QDAY TAL Administration Glucagon 1 mg 01/07/24 11:34 Glucagon Inj 1 Mg Vial IM Q15MIN PRN BG <70, and no IV access Heparin Sodium (Porcine) 5,000 unit 12/27/23 21:00 01/10/24 09:28 Heparin Sod Inj 5000 Unit/Ml Vial SC 01/10/24 20:59 5,000 unit Q12HR TAL Administration Meropenem 1,000 mg/ Sodium 50 mls @ 100 mls/hr 01/03/24 22:00 01/10/24 14:02 Chloride IV 01/10/24 21:59 100 mls/hr Q8HR TAL Administration Fentanyl Citrate 2,500 mcg in 250 mls @ 2.5 mls/hr 01/06/24 20:47 01/10/24 17:00 Sublimaze Inj 2,500 Mcg/250 Ml Bag IV 01/11/24 20:46 250 mcg/hr .Q24H PRN 25 mls/hr PER PROTOCOL Titration Protocol 25 MCG/HR Propofol 1,000 mg in 100 mls @ 2.871 mls/hr 01/06/24 20:48 01/10/24 17:00 Diprivan Ivpb IV 02/05/24 20:47 40 mcg/kg/min .Q24H PRN 22.97 mls/hr PER PROTOCOL Titration Protocol 5 MCG/KG/MIN Fluconazole 200 mg in 100 mls @ 100 mls/hr 01/07/24 09:00 01/10/24 09:28 Diflucan/Ns Ivpb IV 01/14/24 08:59 100 mls/hr QDAY TAL Administration Amino Acids 2,000 mls @ 100 mls/hr 01/09/24 23:00 01/09/24 23:12 Tpn-Outsourced IV 01/10/24 18:59 100 mls/hr .Q20H TAL Administration Protocol Vancomycin/Sodium Chloride 750 mg in 150 mls @ 120 mls/hr 01/10/24 10:00 01/10/24 10:53 Vancomycin/Ns 750 Mg Ivpb IV 01/17/24 09:59 120 mls/hr BID@1000,2200 TAL Administration Protocol Potassium Acetate 20 meq/ 2,011 mls @ 100 mls/hr 01/10/24 19:00 Thiamine HCl 100 mg/ Amino IV 01/11/24 15:06 Acids .Q20H7M [facility] Protocol Insulin Glargine 10 unit 01/04/24 14:45 01/10/24 09:28 Insulin Glargine (Lantus) 5 Unit/0.05 Ml (Per 5 Units) SC 02/03/24 14:44 10 unit QDAY TAL Administration Insulin Human Lispro 0 unit 01/04/24 18:00 01/10/24 12:08 Insulin Lispro (Admelog) 1 Unit/0.01 Ml Unit SC 02/03/24 17:59 1 unit Q6HR TAL Administration Protocol Labetalol HCl 10 mg 01/05/24 19:16 01/05/24 22:46 Labetalol Inj 5 Mg/Ml Vial 20 Ml IVP 02/04/24 19:29 10 mg Q6H PRN Administration SBP >170, DBP>110 Melatonin 3 mg 12/28/23 21:00 01/09/24 21:21 Melatonin 3 Mg Tablet PO 01/27/24 20:59 Not Given HS [facility] Ondansetron HCl 4 mg 12/21/23 23:31 01/04/24 06:56 Ondansetron Inj 2 Mg/Ml Inj 2 Ml IV 01/20/24 23:30 4 mg Q4HR PRN Administration NAUSEA OR VOMITING Pantoprazole Sodium 40 mg 01/01/24 09:00 01/10/24 09:27 Pantoprazole Inj 40 Mg Vial IVP 01/31/24 08:59 40 mg QDAY TAL Administration Protocol Pharmacy Consult 1 each 01/10/24 09:00 Pharmacy To Dose Vancomycin IV 01/22/24 08:59 QDAY PRN PROTOCOL Sodium Chloride 3 ml 01/06/24 13:04 01/06/24 13:37 Sodium Chloride Rt [place] 0.9% 3 Ml Nebu INH 02/05/24 13:03 3 ml PRN PRN Administration SOLN Plan The patient is a 43-year-old male no significant past medical history who presented 12/20 with perforated appendicitis with free purulent material in abdomen, underwent laparoscopic appendectomy 12/20 who was admitted to the ICU after exploratory laparotomy due to deterioration of condition. NEURO Patient is sedated, RASS -3. Receives fentanyl and propofol. CARDIO Sinus tachycardia, possibly due to infection. PULM #Right sided pleural effusion Patient is on mechanical ventilation, RR 27, FiO2 35. Imaging showed moderate pleural effusion. Will continue mechanical ventilation. Patient had a chest tube placed yesterday, overnight drained 250 ml. Pleural fluid was sent for labs, showed protein 3.5, LDH 463, likely exudative. Plan: - repeat chest x-ray in the AM - continue antibiotics GI #Acute appendicitis, status-post appendectomy 12/20 #Small bowel perforation, s/p exploratory laparotomy 12/23, 01/05 #Peritonitis #Subcapsular abscess 12/20, laparoscopic appendectomy 12/24, ex lap: small bowel perforation. Diverting ileostomy and peritoneal lavage 12/28, CT-guided percutaneous drainage catheter placed for right subphrenic abscess 12/31, secondary closure of abdominal incision 01/04, CT-guided percutaneous drainage catheter placed with removal 300 cc turbid fluid -Infectious disease consulted -Fluconazole (12/25-), re-started - -Zosyn (12/20-01/02) -> meropenem (01/02-01/09) - Vancomycin renally dosed (01/06- ) 01/05: EX lap, abdomen decompression, wound vac in place Plan: - continue TPN - NPO - Wound care - meropenem (01/02-01/09) - Vancomycin renally dosed (01/06- ) NEPHRO #ANITHA, improving. 01/08 Cr 1.4 - avoid nephrotoxins - renally dose medications URO #No active problems HEME #Moderate anemia No signs of acute blood loss. ENDO #Hyperglycemia Patient does not have a history of diabetes. hbA1 5.8% Patient was having high blood sugar on TPN. - SSI ID #Peritonitis #Subcapsular abscess -Infectious disease consulted -Fluconazole (12/25-), re-started - -Zosyn (12/20-01/02) -> meropenem (01/02-01/09) MSK #No active problems SKIN #No active problems DVT prophylaxis: heparin sc GI prophylaxis: pantoprazole Diet: NPO, TPN Villarreal: no, condom catheter Lines: peripheral, central lines Antibiotics: Meropenem, Vancomycin CODE STATUS: FULL CODE Plan of care discussed with attending Dr. Win and PGY-[address] Andrade. Valencia Bailon MD, PGY 1.
[2024-01-10] MEDS: fentaNYL 2,500 MCG/250 ML BAG 2,500 MCG/250 ML BAG 25 MCG IV (17:53)
[2024-01-10] MEDS: PARENTERAL NUTRITION IV (19:23)
[2024-01-10] MEDS: POTASSIUM ACETATE IV (19:23)
[2024-01-10] MEDS: THIAMINE IV (19:23)
[2024-01-10] MEDS: [UNRECOGNIZED DRUG - OTHER] IV (19:23)
[2024-01-10] MEDS: PROPOFOL 1,000 MG IVPB 1,000 MG/100 ML VIAL 28.712 MG IV (22:18)
[2024-01-11] VITALS (31 sets, daily range): BP systolic 121–164; BP diastolic 65–103; PULSE 101–126; RESP 13–29; TEMP 36.5–37.8; O2SAT 98–100; BMI 34.8
[2024-01-11] MEDS: INSULIN LISPRO (AdmeLOG) 1 UNIT/0.01 ML UNIT SC ×4 (00:03→18:34)
[2024-01-11] MEDS: PROPOFOL 1,000 MG IVPB 1,000 MG/100 ML VIAL 25.841 MG IV ×2 (02:16→06:12)
[2024-01-11] MEDS: fentaNYL 2,500 MCG/250 ML BAG 2,500 MCG/250 ML BAG 25 MCG IV (03:22)
[2024-01-11 04:58] LABS: Base Excess -3 (-3-3); HCO3 23 mEq/L (20-26); Inspired Oxygen, FIO2 30 %; O2 Saturation 98 % (91-98); PCO2 43 mmHg (32.0-48.0); PO2 99 mmHg (83-108); pH, Arterial 7.34 (7.35-7.45)
[2024-01-11 05:03] LABS: Allen Test Performed/OK; Puncture Site Right Radial
[2024-01-11 06:13] LABS: Basophils # (Auto) 0.1 Thou/mm3 (0.0-0.2); Basophils % (Auto) 0 % (0-2.5); Eosinophils # (Auto) 0.4 Thou/mm3 (0.0-0.5); Eosinophils % (Auto) 2 % (0-10); Hematocrit 24.7 % (41.0-53.0); Immature Granulocytes % (Auto) 2 % (0-0); Immature Granulocytes Auto 0.32 Thou/mm3 (0.00-0.00); Lymphocytes # (Auto) 1.9 Thou/mm3 (1.0-4.8); Lymphocytes % (Auto) 9 % (10-50); Mean Corpuscular HGB Conc 33.2 g/dl (31.0-37.0); Mean Corpuscular Hemoglobin 28.9 pg (25.0-35.0); Mean Corpuscular Volume 87 fL (80-100); Monocytes # (Auto) 1.9 Thou/mm3 (0.0-0.8); Monocytes % (Auto) 9 % (0-12); Neutrophils # (Auto) 15.7 Thou/mm3 (1.8-7.7); Neutrophils % (Auto) 78 % (37-80); Nucleated Red Blood Cell % 0 /100 WBC (0); Platelet Count 500 Thou/mm3 (140-440); RDW Standard Deviation 45.3 fL (35.1-43.9); Red Blood Count 2.84 Miln/mm3 (4.50-5.90); White Blood Count 20.2 Thou/mm3 (3.8-10.6)
[2024-01-11 06:15] LABS: Hemoglobin 8.2 g/dL (13.5-16.0)
[2024-01-11 06:33] LABS: Anion Gap 4 (7-16); BUN/Creatinine Ratio 36 Ratio (12-20); Blood Urea Nitrogen 47 mg/dL (9-23); Calcium 7.9 mg/dL (8.3-10.6); Carbon Dioxide 23.3 mMol/L (20.0-31.0); Chloride 108 mMol/L (98-107); Creatinine (Component) 1.3 mg/dL (0.6-1.3); Glucose 161 mg/dL (74-106); Osmolality,Calculated 285 (275-295); Potassium 3.5 mMol/L (3.4-5.1); Sodium 135 mMol/L (136-145); Triglycerides 608 mg/dL (30-150); eGFR > 60 See Note
--- NOTE | 2024-01-11 07:00 | XR_ITS ---
Examination: AP chest single view Technique one AP portable upright chest single view Exam date and time: January 11, 2024 0521 hrs. Indications: Hypoxic respiratory failure, recurrent right pleural disease post right chest tube placement 2 days ago, hypoxic respiratory failure postintubation Findings: Mild heart failure Mild enlargement cardiac contour with prominent vascular congestion Diffuse edema and/or pneumonia right lung Right lower hemithorax chest tube satisfactory position with no significant right pleural fluid Endotracheal tube tip 26 mm above jose cruz Right internal jugular central line tip satisfactory position, no pneumothorax Impression: Mild heart failure Diffuse pneumonia and/or edema right lung Right chest tube satisfactory position
[2024-01-11] MEDS: FLUCONAZOLE/NS 200 MG IVPB 200 MG/100 ML BAG 100 MG IV (09:23)
[2024-01-11] MEDS: PANTOPRAZOLE INJ 40 MG VIAL IVP (09:24)
[2024-01-11] MEDS: FUROSEMIDE INJ 10 MG/ML 4ML VIAL 40 MG IVP (09:24)
[2024-01-11] MEDS: HEPARIN SOD INJ 5000 UNIT/ML VIAL SC ×2 (09:24→20:10)
[2024-01-11] MEDS: INSULIN GLARGINE (Lantus) 5 UNIT/0.05 ML (PER 5 UNITS) 10 UNIT SC (09:25)
[2024-01-11] MEDS: VANCOMYCIN/NS 750 MG IVPB 750 MG/150 ML BAG 120 MG IV ×2 (11:17→21:43)
[2024-01-11] MEDS: PROPOFOL 1,000 MG IVPB 1,000 MG/100 ML VIAL 28.712 MG IV ×4 (11:24→22:55)
--- NOTE | 2024-01-11 12:28 | PD.SURPROG ---
Documentation for date of: 01/11/24 Subjective Subjective Brief History: As above Narrative: The patient's condition is essentially unchanged. He still tachycardic with a heart rate around 110 x 120. His drainage in the right pleural catheter is minimal Exam Vital Signs Temp Pulse Resp BP Pulse Ox O2 Del Method O2 Flow Rate 98.8 F 120 H 28 H 135/87 H 98 Mechanical Ventilation 2 01/11/24 07:00 01/11/24 10:34 01/11/24 04:00 01/11/24 10:34 01/11/24 10:34 01/11/24 07:00 01/06/24 16:00 FiO2 30 01/11/24 10:34 His vital signs are normal other than tachycardia Routine Abdominal Exam Comments: Wound VAC in place in the abdomen with no significant change Results Results: Laboratory Laboratory Narrative: WBC still showing around 20,000. ABG shows satisfactory values at 30% FiO2 Assessment & Plan Assessment Additional comments: Impression: No significant change in his condition. Plan We shall wait for him to get extubated and then try enteral feeding. Procedures Procedures Exploratory laparotomy and drainage of the subcutaneous infection and wound VAC application
--- NOTE | 2024-01-11 12:40 | ESPR_ITS ---
<Statement entered by Luis Pope MD - 01/12/24 10:28> TOTAL CC TIME: 35 MIN I saw and evaluated the patient. I reviewed the resident?s note and agree with findings and plan as documented in the resident?s note. Upon my evaluation, this patient had a high probability of imminent or life- threatening deterioration due to acute hypoxic respiratory failure which required my direct attention, intervention, and personal management. This time is exclusive of time spent on procedures, which are documented separately if performed. Patient is improving slowly. I am concerned regarding persistent sinus tachycardia and the subphrenic abscess that did not seem to be appropriately drained. Despite that his drainage catheter was removed for reasons that I cannot comprehend. A new drainage catheter may be needed. The right pleural pigtail was flushed with minimal output, there remains to be complicated parapneumonic effusion without evidence of empyema. Intrapleural tPA and dornase was infused Patient was placed on pressure support ventilation has low lung volumes due to abdominal distention and loculated right pleural effusion. Hopefully this will improved and we will be able to extubate tomorrow if he continues to improve. Documentation for date of: 01/11/24 Subjective Subjective Interval history: Th patient is a 43-year-old male no significant past medical history who presented 12/20 with perforated appendicitis with free purulent material in abdomen, underwent laparoscopic appendectomy 12/20. Medicine team consulted 12/22. tachypnea, tachycardia, increased O2 requirement, repeat CT A/P showed pneumoperitoneum,so he had exploratory laparotomy on 12/23 and was found to have small bowel perforation, washout was performed & subsequent diverting ileostomy and wound VAC. 12/28: CT-guided percutaneous drainage catheter placed for subphrenic abscess. 12/31 underwent secondary closure of abdominal incision. 01/06/24 patient spiked fever at 6 PM 101.5 ?F, tachycardic and tachypneic requiring 5L O2 nasal cannula saturating 99%. Patient appeared to be more fatigued with firm abdomen, general surgery and pulmonology/sales order administrator spoke to family and discussed possibility of bringing patient back to OR for bowel decompression/irrigation, family agreed and patient was taken to the OR. Findings:Purulent material was seen which was whitish and not foul-smelling, sutures removed, irrigated the wound extensively with saline solution and left #19 round Shel[place]-Weber on the right gutter, then the wound was closed with wound VAC leaving the fascia completely open. Patient tolerated the procedure well and left operating room in stable condition. On arrival to ICU patient intubated, hemodynamically stable. 01/07/2024, patient evaluated bedside, currently on mechanical ventilation, moderate sedation, spontaneous awakening trial done, able to follow commands, spoke to general surgeon Dr. Rubio, recommended continuing with medical management, no further surgical intervention required at this point, allow for wound closure by secondary intention, continue with wound VAC. Will add vancomycin for abdominal wall infection, continue with meropenem and fluconazole for intra-abdominal sepsis. Patient will be continued on PPN, lipid formulations adjusted for propofol. Added a.m. triglyceride labs. continue with sedation and mechanical ventilation for now. 01/08/2024, patient evaluated at the bedside, currently on mechanical ventilation,SAT and SBT done, minimal ventilatory requirements, labs pertinent for non aniongap metabolic acidosis and hyperchloremia, requested dietary to adjust TPN formulation for lower chloride content. Resolving ANITHA, urine output improving. Scant collection in VANESSA drain and NG tube, 100 ml in wound vac. Gen surg recommends continuing with sedation for 2 more days and for metabolic acidosis to resolve before extubation. per surgery, illeostomy working, GI tract available for feeding, can consider tube feeds tomorrow if pt tolerates. 01/09/2024, patient seen at the bedside, continues to be on mechanical ventilation, RASS -3, labs showed leukocytosis, anemia, elevated platelets. Arterial blood gases showed respiratory acidosis, RR was increased to 28, bedside ultrasound and chest x-ray showed right pleural effusion. CT-guided thoracentesis with chest tube placement was done today. Spoke to Dr. Rubio, no surgical interventions at this time planned, recommended continuing with medical management. 01/10/2024 patient continues to be on mechanical ventilation, was agitated, failed SBT. Will try again tomorrow. Labs showed leukocytosis, anemia, elevated platelets. Arterial blood gases showed acidosis improved compared to yesterday. Patient had a chest tube placed yesterday, overnight drained 250 ml. Pleural fluid was sent for labs, showed protein 3.5, LDH 463, likely exudative. Patient continues to be on TPN. 01/11/2024 patient continues to be on mechanical ventilation, sedated, was put on PS. Chest tube did not draw significant amount of fluid, patient was contacted for informed consent with presence of sinhala speking sound mixer and witness. She consented and patient had an injection of alteplse and dnase to improve drainage from possible loculated fluid. Patient continues to be on TPN. Repeat chest x-ray: diffuse pneumonia/edema of the right lung. Sputum cultures were ordered. Meropenem infusions has ended, patient was started on the Zosyn due to absence of highly resistant young in the cultures. Exam Vital Signs Temp Pulse Resp BP Pulse Ox O2 Del Method O2 Flow Rate 98.8 F 120 H 28 H 135/87 H 98 Mechanical Ventilation 2 01/11/24 07:00 01/11/24 10:34 01/11/24 04:00 01/11/24 10:34 01/11/24 10:34 01/11/24 07:00 01/06/24 16:00 FiO2 30 01/11/24 10:34 Narrative Exam Gen: sedated, RASS -3. HEENT: NCAT, PERRLA, EOMI, MMM, anicteric conjunctivae. NG tube. CVS: normal S1 and S2. RRR. No M/R/G. Resp: CTA B/L. No rhonchi, rales, crackles or wheezing. Right sided chest tube. Abd: midline postop large wound with VAC, ileostomy with bag. MSK: Good ROM in BUE & BLE. No edema or rash. Neuro: CN II-XII grossly intact. Strength 5/5 in BUE & BLE. Alert and oriented x3. Psych: appropriate mood and affect. Objective Labs 01/11/24 05:39 01/11/24 05:39 Labs: Laboratory Results - last 24 hr 01/11/24 01/11/24 04:35 05:39 WBC 20.2 H RBC 2.84 L Hgb 8.2 L Hct 24.7 L MCV 87 MCH 28.9 MCHC 33.2 RDW Std Deviation 45.3 H Plt Count 500 H D Neut % (Auto) 78 Lymph % (Auto) 9 L Piatt % (Auto) 9 Eos % (Auto) 2 Baso % (Auto) 0 Neut # (Auto) 15.7 H Lymph # (Auto) 1.9 Piatt # (Auto) 1.9 H Eos # (Auto) 0.4 Baso # (Auto) 0.1 Immature Gran # (Auto) 0.32 H Absolute Nucleated RBC 0.00 Immature Gran % 2 H Nucleated RBC % 0 Puncture Site Right Radial ABG pH 7.34 L ABG pCO2 43 ABG pO2 99 ABG HCO3 23 ABG O2 Saturation 98 ABG Base Excess -3 FiO2 30 Sodium 135 L Potassium 3.5 Chloride 108 H Carbon Dioxide 23.3 Anion Gap 4 L BUN 47 H Creatinine 1.3 Estim Creat Clear Calc 76.0 eGFR > 60 BUN/Creatinine Ratio 36 H Glucose 161 H Calculated Osmolality 285 Calcium 7.9 L Triglycerides 608 H ABG Interpretation ABG results: 12/21/23 12/24/23 12/25/23 15:50 19:45 02:34 ABG pH 7.40 7.23 L D ABG pCO2 40 56 H D ABG pO2 134 H 229 H D ABG HCO3 25 24 ABG O2 Saturation 99 H 100 H ABG Base Excess 0 -5 L VBG pH 7.48 VBG pCO2 35 L VBG pO2 56 VBG Base Excess 2 12/25/23 12/25/23 12/26/23 04:54 10:48 06:56 ABG pH 7.25 L 7.33 L 7.34 L ABG pCO2 52 H 45 43 ABG pO2 93 D 99 95 ABG HCO3 23 23 23 ABG O2 Saturation 97 98 98 ABG Base Excess -5 L -3 -2 VBG pH VBG pCO2 VBG pO2 VBG Base Excess 12/26/23 01/05/24 01/06/24 10:15 08:13 13:50 ABG pH 7.36 7.37 7.42 ABG pCO2 41 38 30 L ABG pO2 87 75 L 90 ABG HCO3 23 22 19 L ABG O2 Saturation 98 96 98 ABG Base Excess -2 -3 -5 L VBG pH VBG pCO2 VBG pO2 VBG Base Excess 01/06/24 01/07/24 01/07/24 21:44 00:30 04:35 ABG pH 7.12 L* D 7.22 L D 7.27 L ABG pCO2 69 H D 52 H D 45 ABG pO2 261 H D 161 H D 209 H D ABG HCO3 22 21 21 ABG O2 Saturation 100 H 99 H 100 H ABG Base Excess -7 L -6 L -6 L VBG pH VBG pCO2 VBG pO2 VBG Base Excess 01/08/24 01/09/24 01/09/24 04:50 04:14 15:49 ABG pH 7.24 L 7.26 L 7.27 L ABG pCO2 47 50 H 51 H ABG pO2 97 D 97 90 ABG HCO3 20 22 23 ABG O2 Saturation 98 98 97 ABG Base Excess -7 L -5 L -4 L VBG pH VBG pCO2 VBG pO2 VBG Base Excess 01/10/24 01/11/24 04:52 04:35 ABG pH 7.33 L 7.34 L ABG pCO2 43 43 ABG pO2 101 99 ABG HCO3 23 23 ABG O2 Saturation 98 98 ABG Base Excess -3 -3 VBG pH VBG pCO2 VBG pO2 VBG Base Excess Quality Measures Quality Measures VTE prophylaxis Assessment & Plan Assessment Current Active Medications: Generic Name Dose Route Start Last Admin Trade Name Freq PRN Reason Stop Dose Admin Acetaminophen 650 mg 12/31/23 13:25 01/02/24 00:03 Acetaminophen 325 Mg Tablet PO 01/20/24 23:30 650 mg Q6HR PRN Administration Pain (1-3) and FEVER>100.3 Dornase Juan Carlos 5 mg/ Sterile 0 mg 01/11/24 12:45 Water 30 ml INPLEU 01/11/24 12:46 X1 ONE Dextrose 25 ml 01/04/24 14:37 Dextrose 50%-Water Inj 50 Ml Syringe IV 02/03/24 14:36 Q15MIN PRN BG 50-70 responsive npo pt Dextrose 50 ml 01/04/24 14:37 Dextrose 50%-Water Inj 50 Ml Syringe IV 02/03/24 14:36 Q15MIN PRN BG <50 OR BG <70 & pt unresponsive Furosemide 40 mg 01/08/24 09:45 01/11/24 09:24 Furosemide Inj 10 Mg/Ml 4ml Vial IVP 02/07/24 09:44 40 mg QDAY TAL Administration Glucagon 1 mg 01/07/24 11:34 Glucagon Inj 1 Mg Vial IM Q15MIN PRN BG <70, and no IV access Heparin Sodium (Porcine) 5,000 unit 01/11/24 09:00 01/11/24 09:24 Heparin Sod Inj 5000 Unit/Ml Vial SC 01/25/24 08:59 5,000 unit Q12HR TAL Administration Fentanyl Citrate 2,500 mcg in 250 mls @ 2.5 mls/hr 01/06/24 20:47 01/11/24 11:00 Sublimaze Inj 2,500 Mcg/250 Ml Bag IV 01/11/24 20:46 300 mcg/hr .Q24H PRN 30 mls/hr PER PROTOCOL Titration Protocol 25 MCG/HR Propofol 1,000 mg in 100 mls @ 2.871 mls/hr 01/06/24 20:48 01/11/24 11:24 Diprivan Ivpb IV 02/05/24 20:47 50 mcg/kg/min .Q24H PRN 28.712 mls/hr PER PROTOCOL Administration Protocol 5 MCG/KG/MIN Fluconazole 200 mg in 100 mls @ 100 mls/hr 01/07/24 09:00 01/11/24 09:23 Diflucan/Ns Ivpb IV 01/14/24 08:59 100 mls/hr QDAY TAL Administration Vancomycin/Sodium Chloride 750 mg in 150 mls @ 120 mls/hr 01/10/24 10:00 01/11/24 11:17 Vancomycin/Ns 750 Mg Ivpb IV 01/17/24 09:59 120 mls/hr BID@1000,2200 TAL Administration Protocol Potassium Acetate 20 meq/ 2,011 mls @ 100 mls/hr 01/10/24 19:00 01/10/24 19:23 Thiamine HCl 100 mg/ Amino IV 01/11/24 15:06 100 mls/hr Acids .Q20H7M TAL Administration Protocol Potassium Acetate 20 meq/ 2,011 mls @ 100 mls/hr 01/11/24 15:07 Thiamine HCl 100 mg/ Amino IV 01/12/24 11:13 Acids .Q20H7M TAL Protocol Insulin Glargine 10 unit 01/04/24 14:45 01/11/24 09:25 Insulin Glargine (Lantus) 5 Unit/0.05 Ml (Per 5 Units) SC 02/03/24 14:44 10 unit QDAY TAL Administration Insulin Human Lispro 0 unit 01/04/24 18:00 01/11/24 05:55 Insulin Lispro (Admelog) 1 Unit/0.01 Ml Unit SC 02/03/24 17:59 1 unit Q6HR TAL Administration Protocol Labetalol HCl 10 mg 01/05/24 19:16 01/05/24 22:46 Labetalol Inj 5 Mg/Ml Vial 20 Ml IVP 02/04/24 19:29 10 mg Q6H PRN Administration SBP >170, DBP>110 Melatonin 3 mg 12/28/23 21:00 01/10/24 20:16 Melatonin 3 Mg Tablet PO 01/27/24 20:59 Not Given HS TAL Ondansetron HCl 4 mg 12/21/23 23:31 01/04/24 06:56 Ondansetron Inj 2 Mg/Ml Inj 2 Ml IV 01/20/24 23:30 4 mg Q4HR PRN Administration NAUSEA OR VOMITING Pantoprazole Sodium 40 mg 01/01/24 09:00 01/11/24 09:24 Pantoprazole Inj 40 Mg Vial IVP 01/31/24 08:59 40 mg QDAY TAL Administration Protocol Pharmacy Consult 1 each 01/10/24 09:00 Pharmacy To Dose Vancomycin IV 01/22/24 08:59 QDAY PRN PROTOCOL Sodium Chloride 3 ml 01/06/24 13:04 01/06/24 13:37 Sodium Chloride Rt [place] 0.9% 3 Ml Nebu INH 02/05/24 13:03 3 ml PRN PRN Administration SOLN Tenecteplase 5 mg 01/11/24 09:56 Tenecteplase Inj 50 Mg Vial IV 01/11/24 09:57 X1 ONE Protocol Plan The patient is a 43-year-old male no significant past medical history who presented 12/20 with perforated appendicitis with free purulent material in abdomen, underwent laparoscopic appendectomy 12/20 who was admitted to the ICU after exploratory laparotomy due to deterioration of condition. NEURO Patient is sedated, RASS -3. Receives fentanyl and propofol. CARDIO Sinus tachycardia, possibly due to infection (inflammatory pleural effusion, abdominal abscess). PULM #'Sympathetic' right sided pleural effusion due to right subphrenic abscess #Acute respiratory failure, improved Patient is on mechanical ventilation, RR 27, FiO2 30. Imaging showed moderate pleural effusion. Will continue mechanical ventilation. Patient had a chest tube placed yesterday, overnight drained 250 ml. Pleural fluid was sent for labs, showed protein 3.5, LDH 463, likely exudative. Chest xray was inconclusive if there was right lung edema or pneumonia, sputum cultures were ordered. Plan: - repeat chest x-ray in the AM - alteplase and dnase intrapleural infusion to improve drainage - sputum culture pending - continue antibiotics GI #Acute appendicitis, status-post appendectomy 12/20 #Small bowel perforation, s/p exploratory laparotomy 12/23, 01/05 #Peritonitis #Subcapsular abscess, s/p CT-guided 12/20, laparoscopic appendectomy 12/24, ex lap: small bowel perforation. Diverting ileostomy and peritoneal lavage 12/28, CT-guided percutaneous drainage catheter placed for right subphrenic abscess 12/31, secondary closure of abdominal incision 01/04, CT-guided percutaneous drainage catheter placed with removal 300 cc turbid fluid -Infectious disease consulted -Fluconazole (), re-started - -Zosyn (12/20-01/02) -> meropenem (01/02-01/09) - Vancomycin renally dosed (01/06- ) 01/05: EX lap, abdomen decompression, wound vac in place Patient was started on the Zosyn after meropenem due to abscence of resistant cultures. Plan: - continue TPN - NPO - Wound care - meropenem (01/02-01/09) - Vancomycin renally dosed (01/06- ) - Zosyn (01/10-) NEPHRO #ANITHA, improving. 01/08 Cr 1.4 - avoid nephrotoxins - renally dose medications URO #No active problems HEME #Moderate anemia No signs of acute blood loss. ENDO #Hyperglycemia Patient does not have a history of diabetes. hbA1 5.8% Patient was having high blood sugar on TPN. - Glargine 10 U - SSI ID #Peritonitis #Subcapsular abscess -Infectious disease consulted -Fluconazole (), re-started - -Zosyn (12/20-01/02) -> meropenem (01/02-01/09) Zosyn 01/10- MSK #No active problems SKIN #No active problems DVT prophylaxis: heparin sc GI prophylaxis: pantoprazole Diet: NPO, TPN Villarreal: no, condom catheter Lines: peripheral, central lines Antibiotics: Zosyn, Vancomycin CODE STATUS: FULL CODE Plan of care discussed with attending Dr. Pope and PGY-[address] De La Paz. Valencia Bailon MD, PGY 1.
[2024-01-11] MEDS: fentaNYL 2,500 MCG/250 ML BAG 2,500 MCG/250 ML BAG 30 MCG IV ×2 (13:00→21:36)
--- NOTE | 2024-01-11 14:45 | PC.CC ---
Pt remains intubated, with chest tube. Pt continues with TPN.
[2024-01-11] MEDS: PIPER/TAZO 3.375 GM 50 ML IV (15:37)
[2024-01-11] MEDS: POTASSIUM ACETATE IV (15:39)
[2024-01-11] MEDS: THIAMINE IV (15:39)
[2024-01-11] MEDS: [UNRECOGNIZED DRUG - OTHER] IV (15:39)
[2024-01-11] MEDS: PARENTERAL NUTRITION IV (15:39)
[2024-01-11] MEDS: ALTEPLASE INPLEU (18:07)
[2024-01-11] MEDS: SODIUM CHLORIDE 0.9% INPLEU (18:07)
[2024-01-11] MEDS: DORNASE ALFA INPLEU (18:08)
[2024-01-11] MEDS: [UNRECOGNIZED DRUG - OTHER] INPLEU (18:08)
--- NOTE | 2024-01-11 19:58 | PC.NURSE ---
MD Hollingsworth unclamped chest tube at 194
[2024-01-11 21:25] LABS: Vancomycin,Trough 16.8 mcg/mL (5.0-10.0)
[2024-01-11] MEDS: PIPER/TAZO INJ 3.375 GM in SODIUM CHLORIDE 0.9% (P) 50 ML IV (21:38)
[2024-01-12] VITALS (35 sets, daily range): BP systolic 140–181; BP diastolic 83–104; PULSE 101–136; RESP 12–98; TEMP 36.7–37.9; O2SAT 96–106; BMI 33.5
[2024-01-12] MEDS: INSULIN LISPRO (AdmeLOG) 1 UNIT/0.01 ML UNIT SC ×4 (00:23→17:35)
[2024-01-12] MEDS: PROPOFOL 1,000 MG IVPB 1,000 MG/100 ML VIAL 28.712 MG IV ×2 (02:15→06:18)
[2024-01-12] MEDS: PIPER/TAZO INJ 3.375 GM in SODIUM CHLORIDE 0.9% (P) 50 ML IV (05:09)
[2024-01-12 05:32] LABS: Base Excess -2 (-3-3); HCO3 25 mEq/L (20-26); Inspired Oxygen, FIO2 30 %; O2 Saturation 98 % (91-98); PCO2 49 mmHg (32.0-48.0); PO2 106 mmHg (83-108); pH, Arterial 7.31 (7.35-7.45)
[2024-01-12 05:35] LABS: Allen Test Performed/OK; Puncture Site Right Radial
--- NOTE | 2024-01-12 06:00 | XR_ITS ---
Examination: AP chest single view Technique one AP portable semiupright chest single view Exam date and time: January 12, 2024 0613 hrs. Comparison January 11, 2024 Indications: Hypoxic respiratory failure postintubation, history right pleural fluid post right chest tube insertion Findings: Improvement in heart failure, less pulmonary edema The remains mild cardiomegaly with vascular congestion Tracheal tube tip 22 mm above jose cruz Right internal jugular central line tip right atrium The orogastric tube is in the stomach, the tip below the level of the film Right chest tube again noted with no right pleural fluid depicted No pneumothoraces Impression: Improvement in heart failure No pneumonia currently identified Right chest tube satisfactory position with no right pleural fluid
[2024-01-12] MEDS: fentaNYL 2,500 MCG/250 ML BAG 2,500 MCG/250 ML BAG 30 MCG IV (06:14)
[2024-01-12 06:25] LABS: Basophils # (Auto) 0.1 Thou/mm3 (0.0-0.2); Basophils % (Auto) 1 % (0-2.5); Eosinophils # (Auto) 0.6 Thou/mm3 (0.0-0.5); Eosinophils % (Auto) 3 % (0-10); Hematocrit 24.6 % (41.0-53.0); Immature Granulocytes % (Auto) 2 % (0-0); Immature Granulocytes Auto 0.34 Thou/mm3 (0.00-0.00); Lymphocytes # (Auto) 1.7 Thou/mm3 (1.0-4.8); Lymphocytes % (Auto) 8 % (10-50); Mean Corpuscular HGB Conc 32.9 g/dl (31.0-37.0); Mean Corpuscular Hemoglobin 28.8 pg (25.0-35.0); Mean Corpuscular Volume 88 fL (80-100); Monocytes # (Auto) 2.1 Thou/mm3 (0.0-0.8); Monocytes % (Auto) 10 % (0-12); Neutrophils # (Auto) 16.8 Thou/mm3 (1.8-7.7); Neutrophils % (Auto) 78 % (37-80); Nucleated Red Blood Cell # 0.02 Thou/mm3 (0.00-0.00); Nucleated Red Blood Cell % 0 /100 WBC (0); Platelet Count 480 Thou/mm3 (140-440); RDW Standard Deviation 46.3 fL (35.1-43.9); Red Blood Count 2.81 Miln/mm3 (4.50-5.90); White Blood Count 21.6 Thou/mm3 (3.8-10.6)
[2024-01-12 06:30] LABS: Hemoglobin 8.1 g/dL (13.5-16.0)
[2024-01-12 06:55] LABS: Anion Gap 7 (7-16); BUN/Creatinine Ratio 29 Ratio (12-20); Blood Urea Nitrogen 43 mg/dL (9-23); Calcium 7.9 mg/dL (8.3-10.6); Carbon Dioxide 23.3 mMol/L (20.0-31.0); Chloride 104 mMol/L (98-107); Creatinine (Component) 1.5 mg/dL (0.6-1.3); Estimated Creatinine Clearance 64.6 mL/min (>60); Glucose 178 mg/dL (74-106); Osmolality,Calculated 283 (275-295); Potassium 3.5 mMol/L (3.4-5.1); Sodium 134 mMol/L (136-145); eGFR 59 See Note
[2024-01-12] MEDS: FLUCONAZOLE/NS 200 MG IVPB 200 MG/100 ML BAG 100 MG IV (09:34)
[2024-01-12] MEDS: MORPHINE SULF INJ 10 MG/ML VIAL 4 MG IVP (09:34)
[2024-01-12] MEDS: PANTOPRAZOLE INJ 40 MG VIAL IVP (09:34)
[2024-01-12] MEDS: HEPARIN SOD INJ 5000 UNIT/ML VIAL SC ×2 (09:35→21:21)
[2024-01-12] MEDS: INSULIN GLARGINE (Lantus) 5 UNIT/0.05 ML (PER 5 UNITS) 10 UNIT SC (09:39)
--- NOTE | 2024-01-12 09:56 | XR_ITS ---
Examination: CT-guided placement abscess drainage catheter, percutaneous, right lower abdomen CT abdomen without intravenous contrast Date and time of procedure: January 12, 2024 1352 hours INDICATIONS: CT examination January 12, 2024 1349 hours fluid collection 9.4 x 4.8 cm below the right lobe liver Informed consent provided. A timeout was completed verifying correct patient, procedure, site and positioning. Technique: Axial 3 mm sections were obtained for localization of the abscess collection below the right lobe liver. Appropriate area is marked. The patient's site was prepped and draped in sterile fashion Maximal sterile barrier technique utilized, including hand hygiene Local anesthesia was obtained with 1% lidocaine. Low dose protocols were performed. One or more of the following dose reduction techniques were used; automated exposure control, adjustment of the mA and/or KV according to patient size, use of iterative reconstruction technique. Utilizing CT fluoroscopic guidance 5 Polish catheter placed percutaneously in the abscess collection 0.35 wire guide placed through the catheter followed by 6 Polish pigtail abscess drainage catheter in proper position 15 cc grossly purulent material removed and sent for culture and sensitivity Patient appears in stable condition during this procedure. At completion of the procedure, the patient is in satisfactory condition. Estimated blood loss 0 cc Complete pathology report to follow. Impression: Successful CT-guided percutaneous placement abscess drainage catheter abscess collection right lower abdomen
--- NOTE | 2024-01-12 11:05 | XR_ITS ---
Examination: CT abdomen and pelvis without contrast. Coronal 3-D reconstructions. Sagittal 2-D reconstructions. Date and time of exam:January 12, 2024 1349 hours COMPARISON: January 04, 2024 INDICATIONS: Abdominal pain and distention this week, peritonitis history CTDI: vol (mGy): 16.5 DLP: (mGycm): 1105 Technique: Axial images of the abdomen have been obtained, 3 mm slice thickness Intravenous contrast material has not been administered. Low dose protocols were performed. One or more of the following dose reduction techniques were used; automated exposure control, adjustment of the mA and/or KV according to patient size, use of iterative reconstruction technique. Findings: Mild fluid subcapsular to the liver measuring up to 15 mm Marked decrease in extent of fluid peripheral and below the liver compared with the January 04, 2024 exam Axial image 123 demonstrates more localized area of fluid collection which may represent abscess, anterior posterior dimension 9.4 cm mediolateral dimension 4.8 cm Mild ileus Surgical defect anterior abdomen Right ostomy No bowel obstruction No bladder mass IMPRESSION: Localized fluid collection right lower abdomen 9.4 x 4.8 cm consistent with abscess, amenable to IR CT-guided drainage catheter placement
[2024-01-12] MEDS: VANCOMYCIN/NS 750 MG IVPB 750 MG/150 ML BAG 120 MG IV ×2 (11:22→21:21)
[2024-01-12] MEDS: [UNRECOGNIZED DRUG - OTHER] IV (11:25)
[2024-01-12] MEDS: MULTIVITAMIN IV (11:25)
--- NOTE | 2024-01-12 14:14 | ESPR_ITS ---
<Statement entered by Luis Pope MD - 01/13/24 12:53> TOTAL TIME: 45MINUTES ON DIRECT MEDICAL CARE, MANAGEMENT - COORDINATION AND COUNSELING > 50% OF TOTAL TIME I saw and evaluated the patient. I reviewed the resident?s note and agree with findings and plan as documented in the resident?s note. extubated without difficulty minimal ct output and no clear significant effusion remains post tpa/dnase assisted drainage will need repeat ct abd/pelv to f/u on subphrenic abscess - bedside US by ICU team showed persistent fluid worrisome for abscess Documentation for date of: 01/12/24 Subjective Subjective Interval history: Patient is a 43-year-old male with no significant past medical history who presented 12/20 with perforated appendicitis with free purulent material in abdomen, underwent laparoscopic appendectomy 12/20. Medicine team consulted 12/22. tachypnea, tachycardia, increased O2 requirement, repeat CT A/P showed pneumoperitoneum,so he had exploratory laparotomy on 12/23 and was found to have small bowel perforation, washout was performed & subsequent diverting ileostomy and wound VAC. 12/28: CT-guided percutaneous drainage catheter placed for subphrenic abscess. 12/31 underwent secondary closure of abdominal incision. 01/06/24 patient spiked fever at 6 PM 101.5 ?F, tachycardic and tachypneic requiring 5L O2 nasal cannula saturating 99%. Patient appeared to be more fatigued with firm abdomen, general surgery and pulmonology/implementation project coordinator spoke to family and discussed possibility of bringing patient back to OR for bowel decompression/irrigation, family agreed and patient was taken to the OR. Findings:Purulent material was seen which was whitish and not foul-smelling, sutures removed, irrigated the wound extensively with saline solution and left #19 round [place] on the right gutter, then the wound was closed with wound VAC leaving the fascia completely open. Patient tolerated the procedure well and left operating room in stable condition. On arrival to ICU patient intubated, hemodynamically stable. 01/07/2024, patient evaluated bedside, currently on mechanical ventilation, moderate sedation, spontaneous awakening trial done, able to follow commands, spoke to general surgeon Dr. Rubio, recommended continuing with medical management, no further surgical intervention required at this point, allow for wound closure by secondary intention, continue with wound VAC. Will add vancomycin for abdominal wall infection, continue with meropenem and fluconazole for intra-abdominal sepsis. Patient will be continued on PPN, lipid formulations adjusted for propofol. Added a.m. triglyceride labs. continue with sedation and mechanical ventilation for now. 01/08/2024, patient evaluated at the bedside, currently on mechanical ventilation,SAT and SBT done, minimal ventilatory requirements, labs pertinent for non aniongap metabolic acidosis and hyperchloremia, requested dietary to adjust TPN formulation for lower chloride content. Resolving ANITHA, urine output improving. Scant collection in VANESSA drain and NG tube, 100 ml in wound vac. Gen surg recommends continuing with sedation for 2 more days and for metabolic acidosis to resolve before extubation. per surgery, illeostomy working, GI tract available for feeding, can consider tube feeds tomorrow if pt tolerates. 01/09/2024, patient seen at the bedside, continues to be on mechanical ventilation, RASS -3, labs showed leukocytosis, anemia, elevated platelets. Arterial blood gases showed respiratory acidosis, RR was increased to 28, bedside ultrasound and chest x-ray showed right pleural effusion. CT-guided thoracentesis with chest tube placement was done today. Spoke to Dr. Rubio, no surgical interventions at this time planned, recommended continuing with medical management. 01/10/2024 patient continues to be on mechanical ventilation, was agitated, failed SBT. Will try again tomorrow. Labs showed leukocytosis, anemia, elevated platelets. Arterial blood gases showed acidosis improved compared to yesterday. Patient had a chest tube placed yesterday, overnight drained 250 ml. Pleural fluid was sent for labs, showed protein 3.5, LDH 463, likely exudative. Patient continues to be on TPN. 01/11/2024 patient continues to be on mechanical ventilation, sedated, was put on PS. Chest tube did not draw significant amount of fluid, patient was contacted for informed consent with presence of [place] spe[place] motel keeper and witness. She consented and patient had an injection of alteplse and dnase to improve drainage from possible loculated fluid. Patient continues to be on TPN. Repeat chest x-ray: diffuse pneumonia/edema of the right lung. Sputum cultures were ordered. Meropenem infusions has ended, patient was started on the Zosyn due to absence of highly resistant young in the cultures. 01/12/2024 patient has been on pressure support overnight and saturating well, maintaining good volumes. Patient still required fentanyl and propofol for sedation due to agitation on the vent, when weaned he is able to awake to voice, follow commands, and has appropriate muscle tone. Patient was thus successfully extubated, placed on BiPAP at first due to concern of shallow abdominal breathing. After a trial of 1 hour patient was then transitioned to nasal cannula and did well. He does continue to have sinus tachycardia and had low grade fever to 100.1 this morning. Chest tube drained about 800 ml of yellow serous fluid, and CXR appears improved with clearance of the right costal angle. Will order a repeat CT abdomen/pelvis due to concern of remaining abscess as patient is still tachycardic and febrile with leukocytosis, if abscess remains will reinsert drain catheter. Continue with Zosyn. Creatinine noted to slightly worsen at 1.5, GFR 59 will continue to monitor. Will observe overnight and plan for possible downgrade by tomorrow. Exam Vital Signs Temp Pulse Resp BP Pulse Ox O2 Del Method O2 Flow Rate 98.7 F 115 H 25 H 155/98 H 99 Mechanical Ventilation 2 01/12/24 12:00 01/12/24 12:00 01/12/24 12:00 01/12/24 12:00 01/12/24 12:00 01/12/24 07:00 01/06/24 16:00 FiO2 30 01/12/24 08:43 Narrative Exam Physical Exam General: Awake and follows commands off sedation, on ventilation HEENT: Normocephalic, atraumatic, mucous membranes moist. Heart: Regular rate and rhythm, no murmurs. Lungs: Coarse breath sounds bilaterally. Abdomen: Midline open abdominal incision with wound VAC and good granulation tissue at the surface. Minimal drainage. No erythema Neurologic: Alert, no gross neurological deficit, and patient able to move all 4 extremities. Extremities: No edema. Skin: No rash or ecchymoses. Objective Labs 01/12/24 05:35 01/12/24 05:35 Labs: Laboratory Results - last 24 hr 01/11/24 01/12/24 01/12/24 20:52 05:24 05:35 WBC 21.6 H RBC 2.81 L Hgb 8.1 L Hct 24.6 L MCV 88 MCH 28.8 MCHC 32.9 RDW Std Deviation 46.3 H Plt Count 480 H Neut % (Auto) 78 Lymph % (Auto) 8 L [place] % (Auto) 10 Eos % (Auto) 3 Baso % (Auto) 1 Neut # (Auto) 16.8 H Lymph # (Auto) 1.7 [place] # (Auto) 2.1 H Eos # (Auto) 0.6 H Baso # (Auto) 0.1 Immature Gran # (Auto) 0.34 H Absolute Nucleated RBC 0.02 H Immature Gran % 2 H Nucleated RBC % 0 Puncture Site Right Radial ABG pH 7.31 L ABG pCO2 49 H ABG pO2 106 ABG HCO3 25 ABG O2 Saturation 98 ABG Base Excess -2 FiO2 30 Sodium 134 L Potassium 3.5 Chloride 104 Carbon Dioxide 23.3 Anion Gap 7 BUN 43 H Creatinine 1.5 H Estim Creat Clear Calc 64.6 eGFR 59 L BUN/Creatinine Ratio 29 H Glucose 178 H Calculated Osmolality 283 Calcium 7.9 L Vancomycin Trough 16.8 H ABG Interpretation ABG results: 12/21/23 12/24/23 12/25/23 15:50 19:45 02:34 ABG pH 7.40 7.23 L D ABG pCO2 40 56 H D ABG pO2 134 H 229 H D ABG HCO3 25 24 ABG O2 Saturation 99 H 100 H ABG Base Excess 0 -5 L VBG pH 7.48 VBG pCO2 35 L VBG pO2 56 VBG Base Excess 2 12/25/23 12/25/23 12/26/23 04:54 10:48 06:56 ABG pH 7.25 L 7.33 L 7.34 L ABG pCO2 52 H 45 43 ABG pO2 93 D 99 95 ABG HCO3 23 23 23 ABG O2 Saturation 97 98 98 ABG Base Excess -5 L -3 -2 VBG pH VBG pCO2 VBG pO2 VBG Base Excess 12/26/23 01/05/24 01/06/24 10:15 08:13 13:50 ABG pH 7.36 7.37 7.42 ABG pCO2 41 38 30 L ABG pO2 87 75 L 90 ABG HCO3 23 22 19 L ABG O2 Saturation 98 96 98 ABG Base Excess -2 -3 -5 L VBG pH VBG pCO2 VBG pO2 VBG Base Excess 01/06/24 01/07/24 01/07/24 21:44 00:30 04:35 ABG pH 7.12 L* D 7.22 L D 7.27 L ABG pCO2 69 H D 52 H D 45 ABG pO2 261 H D 161 H D 209 H D ABG HCO3 22 21 21 ABG O2 Saturation 100 H 99 H 100 H ABG Base Excess -7 L -6 L -6 L VBG pH VBG pCO2 VBG pO2 VBG Base Excess 01/08/24 01/09/24 01/09/24 04:50 04:14 15:49 ABG pH 7.24 L 7.26 L 7.27 L ABG pCO2 47 50 H 51 H ABG pO2 97 D 97 90 ABG HCO3 20 22 23 ABG O2 Saturation 98 98 97 ABG Base Excess -7 L -5 L -4 L VBG pH VBG pCO2 VBG pO2 VBG Base Excess 01/10/24 01/11/24 01/12/24 04:52 04:35 05:24 ABG pH 7.33 L 7.34 L 7.31 L ABG pCO2 43 43 49 H ABG pO2 101 99 106 ABG HCO3 23 23 25 ABG O2 Saturation 98 98 98 ABG Base Excess -3 -3 -2 VBG pH VBG pCO2 VBG pO2 VBG Base Excess Quality Measures Quality Measures VTE prophylaxis Assessment & Plan Assessment Current Active Medications: Generic Name Dose Route Start Last Admin Trade Name Freq PRN Reason Stop Dose Admin Acetaminophen 650 mg 12/31/23 13:25 01/02/24 00:03 Acetaminophen 325 Mg Tablet PO 01/20/24 23:30 650 mg Q6HR PRN Administration Pain (1-3) and FEVER>100.3 Dextrose 25 ml 01/04/24 14:37 Dextrose 50%-Water Inj 50 Ml Syringe IV 02/03/24 14:36 Q15MIN PRN BG 50-70 responsive npo pt Dextrose 50 ml 01/04/24 14:37 Dextrose 50%-Water Inj 50 Ml Syringe IV 02/03/24 14:36 Q15MIN PRN BG <50 OR BG <70 & pt unresponsive Glucagon 1 mg 01/07/24 11:34 Glucagon Inj 1 Mg Vial IM Q15MIN PRN BG <70, and no IV access Heparin Sodium (Porcine) 5,000 unit 01/11/24 09:00 01/12/24 09:35 Heparin Sod Inj 5000 Unit/Ml Vial SC 01/25/24 08:59 5,000 unit Q12HR TAL Administration Fluconazole 200 mg in 100 mls @ 100 mls/hr 01/07/24 09:00 01/12/24 09:34 Diflucan/Ns Ivpb IV 01/14/24 08:59 100 mls/hr QDAY TAL Administration Vancomycin/Sodium Chloride 750 mg in 150 mls @ 120 mls/hr 01/10/24 10:00 01/12/24 11:22 Vancomycin/Ns 750 Mg Ivpb IV 01/17/24 09:59 120 mls/hr BID@1000,2200 TAL Administration Protocol Piperacillin Sod/Tazobactam 50 mls @ 12.5 mls/hr 01/11/24 22:00 01/12/24 05:09 Sod 3.375 gm/ Sodium Chloride IV 01/18/24 21:59 12.5 mls/hr Q8HR TAL Administration Fentanyl Citrate 2,500 mcg in 250 mls @ 2.5 mls/hr 01/11/24 22:21 01/12/24 08:06 Sublimaze Inj 2,500 Mcg/250 Ml Bag IV 01/16/24 22:20 0 mcg/hr .Q24H PRN 0 mls/hr PER PROTOCOL Titration Protocol 25 MCG/HR Potassium Acetate 40 meq/ 120 mls @ 30 mls/hr 01/12/24 12:00 Sodium Chloride IV 01/12/24 15:59 X1 ONE Multivitamins/Minerals 10 ml/ 2,010 mls @ 100 mls/hr 01/12/24 11:14 01/12/24 11:25 Amino Acids IV 01/14/24 03:25 100 mls/hr .Q20H6M TAL Administration Protocol Insulin Glargine 10 unit 01/04/24 14:45 01/12/24 09:39 Insulin Glargine (Lantus) 5 Unit/0.05 Ml (Per 5 Units) SC 02/03/24 14:44 10 unit QDAY TAL Administration Insulin Human Lispro 0 unit 01/04/24 18:00 01/12/24 11:29 Insulin Lispro (Admelog) 1 Unit/0.01 Ml Unit SC 02/03/24 17:59 2 unit Q6HR TAL Administration Protocol Labetalol HCl 10 mg 01/05/24 19:16 01/05/24 22:46 Labetalol Inj 5 Mg/Ml Vial 20 Ml IVP 02/04/24 19:29 10 mg Q6H PRN Administration SBP >170, DBP>110 Melatonin 3 mg 12/28/23 21:00 01/11/24 20:09 Melatonin 3 Mg Tablet PO 01/27/24 20:59 Not Given HS TAL Morphine Sulfate 4 mg 01/12/24 08:56 01/12/24 09:34 Morphine Sulf Inj 10 Mg/Ml Vial IVP 01/17/24 08:55 4 mg Q4HR PRN Administration PAIN SCALE 7-10 (Severe Protocol Ondansetron HCl 4 mg 12/21/23 23:31 01/04/24 06:56 Ondansetron Inj 2 Mg/Ml Inj 2 Ml IV 01/20/24 23:30 4 mg Q4HR PRN Administration NAUSEA OR VOMITING Pantoprazole Sodium 40 mg 01/01/24 09:00 01/12/24 09:34 Pantoprazole Inj 40 Mg Vial IVP 01/31/24 08:59 40 mg QDAY TAL Administration Protocol Pharmacy Consult 1 each 01/10/24 09:00 Pharmacy To Dose Vancomycin IV 01/22/24 08:59 QDAY PRN PROTOCOL Sodium Chloride 3 ml 01/06/24 13:04 01/06/24 13:37 Sodium Chloride Rt [place] 0.9% 3 Ml Nebu INH 02/05/24 13:03 3 ml PRN PRN Administration SOLN Plan The patient is a 43-year-old male no significant past medical history who presented 12/20 with perforated appendicitis with free purulent material in abdomen, underwent laparoscopic appendectomy 12/20 who was admitted to the ICU after exploratory laparotomy due to deterioration of condition. NEURO Patient was sedated, however awake when sedation is weaned. Fentanyl and propofol titrated off prior to extubation. Sleepy after extubation. CARDIO #Sinus tachycardia Likely secondary to infection (inflammatory pleural effusion, abdominal abscess). PULM #'Sympathetic' right sided pleural effusion due to right subphrenic abscess #Acute hypoxic respiratory failure, resolving Patient was extubated 01/11 successfully to nasal cannula. Imaging showed moderate pleural effusion. Will continue mechanical ventilation. Patient had a chest tube placed yesterday, overnight drained 250 ml. Pleural fluid was sent for labs, showed protein 3.5, LDH 463, likely exudative. Chest xray was inconclusive if there was right lung edema or pneumonia, sputum cultures were ordered. -Repeat chest x-ray in the AM -Pleural fluid cultures pending 01/09 -Sputum culture pending 01/10 -Continue antibiotics per ID section GI #Acute appendicitis, status-post appendectomy 12/20 #Small bowel perforation, s/p exploratory laparotomy 12/23, 01/05 #Peritonitis #Subcapsular abscess, s/p CT-guided drain placement 12/20, laparoscopic appendectomy 12/24, ex lap: small bowel perforation. Diverting ileostomy and peritoneal lavage 12/28, CT-guided percutaneous drainage catheter placed for right subphrenic abscess 12/31, secondary closure of abdominal incision 01/04, CT-guided percutaneous drainage catheter placed with removal 300 cc turbid fluid -Infectious disease consulted, currently signed off -Fluconazole (12/25-), re-started - -Zosyn (12/20-01/02) -> meropenem (01/02-01/09) -Vancomycin renally dosed (01/06- ) 01/05: EX lap, abdomen decompression, wound vac in place. Currently no plans for another OR procedure, wound is to heal by secondary intention. Patient was started on the Zosyn after meropenem was completed due to absence of resistant cultures. 01/11: CT abdomen/pelvis showed localized fluid collection right lower abdomen 9.4 x 4.8 cm consistent with abscess, drain reinserted -Continue TPN -NPO -Wound care -Continue vancomycin renally dosed (01/06- ) -Continue Zosyn (01/10-) -Abscess culture pending 01/11 NEPHRO #ANITHA Possibly secondary to initiation of Zosyn again or vancomycin. 01/11 Cr 1.5 which is uptrended from last few days. -Monitor CMP -Avoid nephrotoxins -Renally dose medications URO #No active problems HEME #Moderate anemia Stable. No signs of acute blood loss. -Monitor CBC -Transfuse if <7.0 ENDO #Hyperglycemia #Hypertriglyceridemia Patient does not have a history of diabetes. A1c this admission 5.8%. Patient was having high blood sugar on TPN. -Continue Glargine 10 U -Continue SSI -Appreciate dietary recommendations for TPN adjustment ID #Peritonitis #Subcapsular abscess Secondary to intraabdominal infection due to perforated bowel surgery complication. Infectious disease consulted this admission however signed off at this time. Previously, patient received the following: -Fluconazole (12/25-), re-started - -Zosyn (12/20-01/02) -> meropenem (01/02-01/09) 01/12/2024 CT abdomen/pelvis was repeated, which showed localized fluid collection right lower abdomen 9.4 x 4.8 cm consistent with abscess, drain was placed with output of 15 ml opaque purulent output. -Continue Zosyn 01/10- MSK #No active problems SKIN #No active problems DVT prophylaxis: heparin sc GI prophylaxis: pantoprazole Diet: NPO, TPN [place]: None Lines: Peripheral, central lines Antibiotics: Zosyn, Vancomycin CODE STATUS: FULL CODE Patient plan of care was discussed with the attending physician, Dr. Pope. Ellen De La Paz, PGY-2
--- NOTE | 2024-01-12 15:23 | PC.SS ---
Update: Patient extubated today. Patient on nasal cannula. Drain in place. Swallow evaluation is pending. Patient is NPO. Patient on TPN.
[2024-01-12] MEDS: PIPER/TAZO 3.375 GM 50 ML IV (21:20)
[2024-01-13] VITALS (32 sets, daily range): BP systolic 140–181; BP diastolic 85–118; PULSE 90–108; RESP 21–98; TEMP 36.6–37.1; O2SAT 98–99; BMI 33.5
[2024-01-13] MEDS: PIPER/TAZO 3.375 GM 50 ML IV ×3 (05:38→23:35)
[2024-01-13] MEDS: INSULIN LISPRO (AdmeLOG) 1 UNIT/0.01 ML UNIT SC ×4 (05:38→18:03)
[2024-01-13 06:08] LABS: Basophils # (Auto) 0.1 Thou/mm3 (0.0-0.2); Basophils % (Auto) 0 % (0-2.5); Eosinophils # (Auto) 0.1 Thou/mm3 (0.0-0.5); Eosinophils % (Auto) 1 % (0-10); Hematocrit 22.9 % (41.0-53.0); Immature Granulocytes % (Auto) 1 % (0-0); Lymphocytes # (Auto) 1.1 Thou/mm3 (1.0-4.8); Lymphocytes % (Auto) 7 % (10-50); Mean Corpuscular HGB Conc 33.6 g/dl (31.0-37.0); Mean Corpuscular Hemoglobin 28.5 pg (25.0-35.0); Mean Corpuscular Volume 85 fL (80-100); Monocytes # (Auto) 1.3 Thou/mm3 (0.0-0.8); Monocytes % (Auto) 9 % (0-12); Neutrophils # (Auto) 12.9 Thou/mm3 (1.8-7.7); Neutrophils % (Auto) 82 % (37-80); Nucleated Red Blood Cell # 0.02 Thou/mm3 (0.00-0.00); Nucleated Red Blood Cell % 0 /100 WBC (0); Platelet Count 303 Thou/mm3 (140-440); White Blood Count 15.7 Thou/mm3 (3.8-10.6)
[2024-01-13 06:15] LABS: Hemoglobin 7.7 g/dL (13.5-16.0)
[2024-01-13 06:38] LABS: Anion Gap 8 (7-16); BUN/Creatinine Ratio 29 Ratio (12-20); Blood Urea Nitrogen 38 mg/dL (9-23); Calcium 8.1 mg/dL (8.3-10.6); Carbon Dioxide 22.7 mMol/L (20.0-31.0); Chloride 107 mMol/L (98-107); Creatinine (Component) 1.3 mg/dL (0.6-1.3); Estimated Creatinine Clearance 74.5 mL/min (>60); Glucose 220 mg/dL (74-106); Osmolality,Calculated 291 (275-295); Potassium 3.2 mMol/L (3.4-5.1); Sodium 138 mMol/L (136-145); eGFR > 60 See Note
[2024-01-13] MEDS: INSULIN GLARGINE (Lantus) 5 UNIT/0.05 ML (PER 5 UNITS) 10 UNIT SC (08:27)
[2024-01-13] MEDS: HEPARIN SOD INJ 5000 UNIT/ML VIAL SC ×2 (08:28→22:07)
[2024-01-13] MEDS: PANTOPRAZOLE INJ 40 MG VIAL IVP (08:28)
[2024-01-13] MEDS: [UNRECOGNIZED DRUG - OTHER] IV (08:29)
[2024-01-13] MEDS: MULTIVITAMIN IV (08:29)
[2024-01-13] MEDS: FLUCONAZOLE/NS 200 MG IVPB 200 MG/100 ML BAG 100 MG IV (10:00)
[2024-01-13] MEDS: VANCOMYCIN/NS 750 MG IVPB 750 MG/150 ML BAG 120 MG IV ×2 (11:09→22:07)
[2024-01-13] MEDS: MORPHINE SULF INJ 10 MG/ML VIAL 4 MG IVP ×2 (11:38→22:08)
--- NOTE | 2024-01-13 12:03 | PD.SURPROG ---
Documentation for date of: 01/13/24 Subjective Subjective Brief History: As above Narrative: The patient appears better after drainage of the subphrenic collection. He was also extubated yesterday and is breathing reasonably well Exam Vital Signs Temp Pulse Resp BP Pulse Ox O2 Del Method O2 Flow Rate 98 F 100 22 H 173/98 H 99 Room Air 2 01/13/24 08:00 01/13/24 11:00 01/13/24 11:00 01/13/24 11:00 01/13/24 11:00 01/13/24 08:00 01/12/24 15:45 FiO2 30 01/12/24 08:43 His vital signs revealed that the heart rate is around 100. Routine Abdominal Exam Comments: Abdominal examination showed some drainage from the subphrenic collection Results Results: Laboratory Laboratory Narrative: WBC is down to 15,000 showing improvement Assessment & Plan Assessment Additional comments: Impression: Stable postop course after drainage of the subphrenic abscess and extubation Plan Plan: We can start the patient on p.o. feeding if he is tolerating. Procedures Procedures Exploratory laparotomy and drainage of the subcutaneous infection and wound VAC application
[2024-01-13] MEDS: amLODIPine BESYLATE 5 MG TABLET 10 MG PO (13:00)
[2024-01-13] MEDS: LABETALOL INJ 5 MG/ML VIAL 20 ML 10 MG IVP (13:24)
--- NOTE | 2024-01-13 13:30 | ESPR_ITS ---
<Statement entered by Luis Pope MD - 01/14/24 11:03> TOTAL TIME: 45MINUTES ON DIRECT MEDICAL CARE, MANAGEMENT - COORDINATION AND COUNSELING > 50% OF TOTAL TIME I saw and evaluated the patient. I reviewed the resident?s note and agree with findings and plan as documented in the resident?s note. Patient is improving leukocytosis is trending down abdominal pain is improving however minimal drainage from the subphrenic abscess. Dark blood colored fluid is noted. We flushed and aspirated through the percutaneous drainage catheter with sterile water and were able to aspirate approximately 50 cc of brown purulent drainage. Once the subphrenic/pericolic gutter abscess has been fully drained please remove the right chest tube. Patient is hemodynamically stable to transition to the medical surgical team Documentation for date of: 01/13/24 Subjective Subjective Interval history: Patient is a 43-year-old male with no significant past medical history who presented 12/20 with perforated appendicitis with free purulent material in abdomen, underwent laparoscopic appendectomy 12/20. Medicine team consulted 12/22. tachypnea, tachycardia, increased O2 requirement, repeat CT A/P showed pneumoperitoneum,so he had exploratory laparotomy on 12/23 and was found to have small bowel perforation, washout was performed & subsequent diverting ileostomy and wound VAC. 12/28: CT-guided percutaneous drainage catheter placed for subphrenic abscess. 12/31 underwent secondary closure of abdominal incision. 01/06/24 patient spiked fever at 6 PM 101.5 ?F, tachycardic and tachypneic requiring 5L O2 nasal cannula saturating 99%. 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 Findings:Purulent material was seen which was whitish and not foul-smelling, sutures removed, irrigated the wound extensively with saline solution and left #19 round Shelton-Weber on the right gutter, then the wound was closed with wound VAC leaving the fascia completely open. Patient tolerated the procedure well and left operating room in stable condition. On arrival to ICU patient intubated, hemodynamically stable. 01/07/2024, patient evaluated bedside, currently on mechanical ventilation, moderate sedation, spontaneous awakening trial done, able to follow commands, spoke to general surgeon Dr. Rubio, recommended continuing with medical management, no further surgical intervention required at this point, allow for wound closure by secondary intention, continue with wound VAC. Will add vancomycin for abdominal wall infection, continue with meropenem and fluconazole for intra-abdominal sepsis. Patient will be continued on PPN, lipid formulations adjusted for propofol. Added a.m. triglyceride labs. continue with sedation and mechanical ventilation for now. 01/08/2024, patient evaluated at the bedside, currently on mechanical ventilation,SAT and SBT done, minimal ventilatory requirements, labs pertinent for non aniongap metabolic acidosis and hyperchloremia, requested dietary to adjust TPN formulation for lower chloride content. Resolving ANITHA, urine output improving. Scant collection in VANESSA drain and NG tube, 100 ml in wound vac. Gen surg recommends continuing with sedation for 2 more days and for metabolic acidosis to resolve before extubation. per surgery, illeostomy working, GI tract available for feeding, can consider tube feeds tomorrow if pt tolerates. 01/09/2024, patient seen at the bedside, continues to be on mechanical ventilation, RASS -3, labs showed leukocytosis, anemia, elevated platelets. Arterial blood gases showed respiratory acidosis, RR was increased to 28, bedside ultrasound and chest x-ray showed right pleural effusion. CT-guided thoracentesis with chest tube placement was done today. Spoke to Dr. Rubio, no surgical interventions at this time planned, recommended continuing with medical management. 01/10/2024 patient continues to be on mechanical ventilation, was agitated, failed SBT. Will try again tomorrow. Labs showed leukocytosis, anemia, elevated platelets. Arterial blood gases showed acidosis improved compared to yesterday. Patient had a chest tube placed yesterday, overnight drained 250 ml. Pleural fluid was sent for labs, showed protein 3.5, LDH 463, likely exudative. Patient continues to be on TPN. 01/11/2024 patient continues to be on mechanical ventilation, sedated, was put on PS. Chest tube did not draw significant amount of fluid, patient was contacted for informed consent with presence of sami speaking power sweeper operator and witness. She consented and patient had an injection of alteplase and dnase to improve drainage from possible loculated fluid. Patient continues to be on TPN. Repeat chest x-ray: diffuse pneumonia/edema of the right lung. Sputum cultures were ordered. Meropenem infusions has ended, patient was started on the Zosyn due to absence of highly resistant young in the cultures. 01/12/2024 patient has been on pressure support overnight and saturating well, maintaining good volumes. Patient still required fentanyl and propofol for sedation due to agitation on the vent, when weaned he is able to awake to voice, follow commands, and has appropriate muscle tone. Patient was thus successfully extubated, placed on BiPAP at first due to concern of shallow abdominal breathing. After a trial of 1 hour patient was then transitioned to nasal cannula and did well. He does continue to have sinus tachycardia and had low grade fever to 100.1 this morning. Chest tube drained about 800 ml of yellow serous fluid, and CXR appears improved with clearance of the right costal angle. Will order a repeat CT abdomen/pelvis due to concern of remaining abscess as patient is still tachycardic and febrile with leukocytosis, if abscess remains will reinsert drain catheter. Continue with Zosyn. Creatinine noted to slightly worsen at 1.5, GFR 59 will continue to monitor. Will observe overnight and plan for possible downgrade by tomorrow. 01/13/2024 patient seen at the bedside, no acute events overnight. He is alert, follows commands, saturates well on room air, successfully passed swallow eval. He is not on sedation. Wound VAC drained insignificant amount of serosanguineous fluid, chest tube drained less than 100 mL. Drainage placed in subphrenic place was flushed with normal saline and drained approximately 55 mL of pus. Decision to remove chest tube will depend on the results of imaging. He will require repeat flushing and fluid drainage of the subphrenic space through the placed tube. Patient is hemodynamic stable and will be started on a regular diet. He is being downgraded to the floors, medicine team to assume care starting 01/14/2024. Exam Vital Signs Temp Pulse Resp BP Pulse Ox O2 Del Method O2 Flow Rate 98 F 100 22 H 181/118 H 99 Room Air 2 01/13/24 08:00 01/13/24 13:24 01/13/24 11:00 01/13/24 13:24 01/13/24 11:00 01/13/24 08:00 01/12/24 15:45 FiO2 30 01/12/24 08:43 Narrative Exam Gen: awake, alert. HEENT: NCAT, PERRLA, EOMI, MMM, anicteric conjunctivae. NG tube. CVS: normal S1 and S2. RRR. No M/R/G. Resp: CTA B/L. No rhonchi, rales, crackles or wheezing. Right sided chest tube. Abd: midline postop large wound with VAC, ileostomy with bag, right upper quadrant drainage. MSK: Good ROM in BUE & BLE. No edema or rash. Neuro: No acute focal neurological deficits. Psych: appropriate mood and affect. Objective Labs 01/13/24 05:22 01/13/24 05:22 Labs: Laboratory Results - last 24 hr 01/13/24 05:22 WBC 15.7 H D RBC 2.70 L Hgb 7.7 L Hct 22.9 L MCV 85 MCH 28.5 MCHC 33.6 RDW Std Deviation 44.0 H Plt Count 303 D Neut % (Auto) 82 H Lymph % (Auto) 7 L Morrill % (Auto) 9 Eos % (Auto) 1 Baso % (Auto) 0 Neut # (Auto) 12.9 H Lymph # (Auto) 1.1 Morrill # (Auto) 1.3 H Eos # (Auto) 0.1 Baso # (Auto) 0.1 Immature Gran # (Auto) 0.20 H Absolute Nucleated RBC 0.02 H Immature Gran % 1 H Nucleated RBC % 0 Sodium 138 Potassium 3.2 L Chloride 107 Carbon Dioxide 22.7 Anion Gap 8 BUN 38 H Creatinine 1.3 Estim Creat Clear Calc 74.5 eGFR > 60 BUN/Creatinine Ratio 29 H Glucose 220 H Calculated Osmolality 291 Calcium 8.1 L ABG Interpretation ABG results: 12/21/23 12/24/23 12/25/23 15:50 19:45 02:34 ABG pH 7.40 7.23 L D ABG pCO2 40 56 H D ABG pO2 134 H 229 H D ABG HCO3 25 24 ABG O2 Saturation 99 H 100 H ABG Base Excess 0 -5 L VBG pH 7.48 VBG pCO2 35 L VBG pO2 56 VBG Base Excess 2 12/25/23 12/25/23 12/26/23 04:54 10:48 06:56 ABG pH 7.25 L 7.33 L 7.34 L ABG pCO2 52 H 45 43 ABG pO2 93 D 99 95 ABG HCO3 23 23 23 ABG O2 Saturation 97 98 98 ABG Base Excess -5 L -3 -2 VBG pH VBG pCO2 VBG pO2 VBG Base Excess 12/26/23 01/05/24 01/06/24 10:15 08:13 13:50 ABG pH 7.36 7.37 7.42 ABG pCO2 41 38 30 L ABG pO2 87 75 L 90 ABG HCO3 23 22 19 L ABG O2 Saturation 98 96 98 ABG Base Excess -2 -3 -5 L VBG pH VBG pCO2 VBG pO2 VBG Base Excess 01/06/24 01/07/24 01/07/24 21:44 00:30 04:35 ABG pH 7.12 L* D 7.22 L D 7.27 L ABG pCO2 69 H D 52 H D 45 ABG pO2 261 H D 161 H D 209 H D ABG HCO3 22 21 21 ABG O2 Saturation 100 H 99 H 100 H ABG Base Excess -7 L -6 L -6 L VBG pH VBG pCO2 VBG pO2 VBG Base Excess 01/08/24 01/09/24 01/09/24 04:50 04:14 15:49 ABG pH 7.24 L 7.26 L 7.27 L ABG pCO2 47 50 H 51 H ABG pO2 97 D 97 90 ABG HCO3 20 22 23 ABG O2 Saturation 98 98 97 ABG Base Excess -7 L -5 L -4 L VBG pH VBG pCO2 VBG pO2 VBG Base Excess 01/10/24 01/11/24 01/12/24 04:52 04:35 05:24 ABG pH 7.33 L 7.34 L 7.31 L ABG pCO2 43 43 49 H ABG pO2 101 99 106 ABG HCO3 23 23 25 ABG O2 Saturation 98 98 98 ABG Base Excess -3 -3 -2 VBG pH VBG pCO2 VBG pO2 VBG Base Excess Quality Measures Quality Measures VTE prophylaxis Assessment & Plan Assessment Current Active Medications: Generic Name Dose Route Start Last Admin Trade Name Freq PRN Reason Stop Dose Admin Acetaminophen 650 mg 12/31/23 13:25 01/02/24 00:03 Acetaminophen 325 Mg Tablet PO 01/20/24 23:30 650 mg Q6HR PRN Administration Pain (1-3) and FEVER>100.3 Amlodipine Besylate 10 mg 01/13/24 12:30 01/13/24 13:00 Amlodipine Besylate 5 Mg Tablet PO 02/12/24 12:29 10 mg QDAY TAL Administration Dextrose 25 ml 01/04/24 14:37 Dextrose 50%-Water Inj 50 Ml Syringe IV 02/03/24 14:36 Q15MIN PRN BG 50-70 responsive npo pt Dextrose 50 ml 01/04/24 14:37 Dextrose 50%-Water Inj 50 Ml Syringe IV 02/03/24 14:36 Q15MIN PRN BG <50 OR BG <70 & pt unresponsive Glucagon 1 mg 01/07/24 11:34 Glucagon Inj 1 Mg Vial IM Q15MIN PRN BG <70, and no IV access Heparin Sodium (Porcine) 5,000 unit 01/11/24 09:00 01/13/24 08:28 Heparin Sod Inj 5000 Unit/Ml Vial SC 01/25/24 08:59 5,000 unit Q12HR TAL Administration Fluconazole 200 mg in 100 mls @ 100 mls/hr 01/07/24 09:00 01/13/24 10:00 Diflucan/Ns Ivpb IV 01/14/24 08:59 100 mls/hr QDAY TAL Administration Vancomycin/Sodium Chloride 750 mg in 150 mls @ 120 mls/hr 01/10/24 10:00 01/13/24 11:09 Vancomycin/Ns 750 Mg Ivpb IV 01/17/24 09:59 120 mls/hr BID@1000,2200 TAL Administration Protocol Multivitamins/Minerals 10 ml/ 2,010 mls @ 100 mls/hr 01/12/24 11:14 01/13/24 08:29 Amino Acids IV 01/14/24 03:25 100 mls/hr .Q20H6M TAL Administration Protocol Piperacillin/Tazobactam/Dextrose 50 mls @ 12.5 mls/hr 01/12/24 16:10 01/13/24 13:24 Zosyn IV 01/18/24 21:59 12.5 mls/hr Q8HR TAL Administration Insulin Glargine 10 unit 01/04/24 14:45 01/13/24 08:27 Insulin Glargine (Lantus) 5 Unit/0.05 Ml (Per 5 Units) SC 02/03/24 14:44 10 unit QDAY TAL Administration Insulin Human Lispro 0 unit 01/04/24 18:00 01/13/24 12:02 Insulin Lispro (Admelog) 1 Unit/0.01 Ml Unit SC 02/03/24 17:59 2 unit Q6HR TAL Administration Protocol Labetalol HCl 10 mg 01/05/24 19:16 01/13/24 13:24 Labetalol Inj 5 Mg/Ml Vial 20 Ml IVP 02/04/24 19:29 10 mg Q6H PRN Administration SBP >170, DBP>110 Melatonin 3 mg 12/28/23 21:00 01/12/24 21:18 Melatonin 3 Mg Tablet PO 01/27/24 20:59 Not Given HS [facility] Morphine Sulfate 4 mg 01/12/24 08:56 01/13/24 11:38 Morphine Sulf Inj 10 Mg/Ml Vial IVP 01/17/24 08:55 4 mg Q4HR PRN Administration PAIN SCALE 7-10 (Severe Protocol Ondansetron HCl 4 mg 12/21/23 23:31 01/04/24 06:56 Ondansetron Inj 2 Mg/Ml Inj 2 Ml IV 01/20/24 23:30 4 mg Q4HR PRN Administration NAUSEA OR VOMITING Pantoprazole Sodium 40 mg 01/01/24 09:00 01/13/24 08:28 Pantoprazole Inj 40 Mg Vial IVP 01/31/24 08:59 40 mg QDAY TAL Administration Protocol Pharmacy Consult 1 each 01/10/24 09:00 Pharmacy To Dose Vancomycin IV 01/22/24 08:59 QDAY PRN PROTOCOL Plan The patient is a 43-year-old male no significant past medical history who presented 12/20 with perforated appendicitis with free purulent material in abdomen, underwent laparoscopic appendectomy 12/20 who was admitted to the ICU after exploratory laparotomy due to deterioration of condition. NEURO Patient is awake, alert, follows commands. CARDIO #Sinus tachycardia, resolving Likely secondary to infection (inflammatory pleural effusion, abdominal abscess). PULM #'Sympathetic' right sided pleural effusion due to right subphrenic abscess #Acute hypoxic respiratory failure, resolved Patient saturates well on room air. Patient was extubated 01/11 successfully to nasal cannula. Imaging showed moderate pleural effusion. Will continue mechanical ventilation. Patient had a chest tube placed yesterday, overnight drained 250 ml. Pleural fluid was sent for labs, showed protein 3.5, LDH 463, likely exudative. Chest xray was inconclusive if there was right lung edema or pneumonia, sputum cultures were ordered. Chest x-ray 01/13/24: no pneumonia and pleural fluid. Chest tube will be removed depending on the imaging results. -Pleural fluid cultures pending 01/09 -Sputum culture 01/10 - one mold colony, recommended to repeat. -Continue antibiotics per ID section GI #Acute appendicitis, status-post appendectomy 12/20 #Small bowel perforation, s/p exploratory laparotomy 12/23, 01/05 #Peritonitis #Subcapsular abscess, s/p CT-guided drain placement 01/11 12/20, laparoscopic appendectomy 12/24, ex lap: small bowel perforation. Diverting ileostomy and peritoneal lavage 12/28, CT-guided percutaneous drainage catheter placed for right subphrenic abscess 12/31, secondary closure of abdominal incision 01/04, CT-guided percutaneous drainage catheter placed with removal 300 cc turbid fluid -Infectious disease consulted, currently signed off -Fluconazole (12/25-), re-started 29- -Zosyn (12/20-01/02) -> meropenem (01/02-01/09) -Vancomycin renally dosed (01/06- ) 01/05: EX lap, abdomen decompression, wound vac in place. Currently no plans for another OR procedure, wound is to heal by secondary intention. Patient was started on the Zosyn after meropenem was completed due to absence of resistant cultures. 01/11: CT abdomen/pelvis showed localized fluid collection right lower abdomen 9.4 x 4.8 cm consistent with abscess, drain reinserted -Continue TPN -NPO -Wound care -Continue vancomycin renally dosed (01/06- ) -Continue Zosyn (01/10-) - Fluconazole (01/06-) -Abscess culture pending 01/11 NEPHRO #ANITHA, improving Possibly secondary to initiation of Zosyn again or vancomycin. 01/12 Cr 1.3 -Monitor CMP -Avoid nephrotoxins -Renally dose medications URO #No active problems HEME #Moderate anemia Stable. No signs of acute blood loss. -Monitor CBC -Transfuse if <7.0 ENDO #Hyperglycemia #Hypertriglyceridemia Patient does not have a history of diabetes. A1c this admission 5.8%. Patient was having high blood sugar on TPN. Will ween off 50% today and he tolerates the diet, TPN will be discontinued. Patient has palled swalow eval, was started on the regular diet. -Continue Glargine 10 U -Continue SSI - regular diet ID #Peritonitis #Subcapsular abscess Secondary to intraabdominal infection due to perforated bowel surgery complication. Infectious disease consulted this admission however signed off at this time. Previously, patient received the following: -Fluconazole (12/25-), re-started - -Zosyn (12/20-01/02) -> meropenem (01/02-01/09) 01/12/2024 CT abdomen/pelvis was repeated, which showed localized fluid collection right lower abdomen 9.4 x 4.8 cm consistent with abscess, drain was placed with output of 15 ml opaque purulent output. -Continue Zosyn 01/10- MSK #No active problems SKIN #No active problems DVT prophylaxis: heparin sc GI prophylaxis: pantoprazole Diet: regular, TPN Villarreal: placed Lines: Peripheral, central lines Antibiotics: Zosyn, Vancomycin, Fluconazole CODE STATUS: FULL CODE Plan of care discussed with attending Dr. Pope. Valencia Bailon MD, PGY 1.
--- NOTE | 2024-01-13 14:20 | PCS.ST ---
Swallow Evaluation completed at 11:45 am. See report for details. No dysphagia. No intubation trauma. Regular diet
--- NOTE | 2024-01-13 16:13 | PC.SS ---
Update: Patient remains on room air. Patient has been downgraded.
--- NOTE | 2024-01-13 17:10 | EVENTNT_ITS ---
<Statement entered by Michelle Abrams MD - 01/25/24 12:31> Attending attestation: I reviewed above note and agree with findings and plans. I have also personally examined the patient with medicine team and went over assessment and plan with medical team including international representative and resident physician. Documentation for date of: 01/13/24 Event Note Event Note: 43-year-old male with no significant past medical history who was admitted to the hospital by general surgery on 12/21/2023 for acute perforated appendicitis with multiple postop complications. Patient got laparoscopic appendectomy on the same day of admission in which his appendix had to be removed in separate pieces due to rupture, it was gangrenous in nature, and leaking purulent fluid. He had a estimated blood loss of 100 mL and was stable afterwards. Patient was placed on Zosyn after surgery and on postop day 2 patient was having a lot of pain followed by tachycardia and tachypnea on postop day 3. General surgeon also added Flagyl on the third day of admission. On postop day 4 patient was transferred to medical floors and internal medicine team was consulted for management of sinus tachycardia, sepsis, and acute hypoxic respiratory failure. Patient was placed on high flow nasal cannula on the night of postop day 5 before he was subsequently transferred to the ICU after he underwent ex lap. He was found to have a perforated bowel with free fecal matter. Patient was downgraded back to medical floors from ICU on December 27, 2023. At this time he was tolerating liquid diet was not having any pain. On December 29, 2023 patient spiked a fever and spiking WBC and CT ordered day before showed pneumoperitoneum, subphrenic fluid, and fluids capsular to liver with diffuse peritonitis. A percutaneous drain was placed to drain the abscess and afterwards his WBC down trended there was no spikes in fevers. Patient had an NG tube placed on 12/31/2023 to decompress his stomach and he was also placed on TPN as he was having poor oral intake. On 01/01/2024 patient underwent sec ondary closure of abdominal incision and was found to have dehiscence without evisceration. On 01/05/2024 patient had a rapid response called due to tachycardia, tachypnea, hypotension for which general surgery reached out to IR for possible abscess drainage and discussed the case with inspector scales for possible need of bronchoscopy at that time. At this time he was also started on Levaquin. On the next day (01/06/2024) patient spiked fevers and because of no significant pleural fluid, thoracentesis was not done and patient was taken for an additional ex lap in which he was found to have significant purulent fluid, whitish in color. After this patient was taken to the ICU as patient was intubated after the procedure, but was hemodynamically stable at this time. Patient's wound closure by secondary intention with wound VAC in place after procedure. He was placed on fluconazole, meropenem, and vancomycin at this time, he was still on TPN during this time as well. His TPN was adjusted as he developed non-anion gap metabolic acidosis with hyperchloremia. On 01/09/2024 patient had a chest tube please after pleural effusion was found on ultrasound and chest x-ray. On 01/11/2024 patient's antibiotics was changed to Zosyn and vancomycin only. On 01/12/2024 patient was successfully extubated and placed on BiPAP due to shallow abdominal breathing and then was transitioned to nasal c annula at this time his chest tube was still draining around 800 mL. On 01/13/2024 patient was hemodynamically stable and was able to tolerate oral feeds therefore he will be downgraded to the medical floors on 01/14/2024. Case disclosed with Attending Dr. Abrams and My senior Dr. Carey PGY2. Cortez Harp PGY1
[2024-01-13] MEDS: POTASSIUM ACET IV (18:04)
[2024-01-13] MEDS: SODIUM CHLORIDE 0.9% IV (18:04)
[2024-01-13] MEDS: MELATONIN 3 MG TABLET PO (22:07)
[2024-01-14] VITALS (9 sets, daily range): BP systolic 137–158; BP diastolic 87–95; PULSE 94–111; RESP 19–99; TEMP 36.6–37.2; O2SAT 97–98
[2024-01-14 06:08] LABS: Basophils # (Auto) 0.1 Thou/mm3 (0.0-0.2); Basophils % (Auto) 1 % (0-2.5); Eosinophils # (Auto) 0.3 Thou/mm3 (0.0-0.5); Eosinophils % (Auto) 3 % (0-10); Hematocrit 23.4 % (41.0-53.0); Immature Granulocytes % (Auto) 1 % (0-0); Immature Granulocytes Auto 0.15 Thou/mm3 (0.00-0.00); Lymphocytes # (Auto) 1.5 Thou/mm3 (1.0-4.8); Lymphocytes % (Auto) 12 % (10-50); Mean Corpuscular HGB Conc 33.3 g/dl (31.0-37.0); Mean Corpuscular Volume 84 fL (80-100); Monocytes # (Auto) 1.3 Thou/mm3 (0.0-0.8); Monocytes % (Auto) 10 % (0-12); Neutrophils # (Auto) 8.9 Thou/mm3 (1.8-7.7); Neutrophils % (Auto) 73 % (37-80); Nucleated Red Blood Cell # 0.02 Thou/mm3 (0.00-0.00); Nucleated Red Blood Cell % 0 /100 WBC (0); Platelet Count 419 Thou/mm3 (140-440); RDW Standard Deviation 43.2 fL (35.1-43.9); Red Blood Count 2.79 Miln/mm3 (4.50-5.90); White Blood Count 12.3 Thou/mm3 (3.8-10.6)
[2024-01-14 06:20] LABS: Hemoglobin 7.8 g/dL (13.5-16.0)
[2024-01-14 06:35] LABS: Alanine Aminotransferase 49 U/L (10-49); Albumin, Serum 3.2 gm/dL (3.5-5.0); Albumin/Globulin Ratio 0.9 (1.2-2.2); Alkaline Phosphatase 174 U/L (46-116); Anion Gap 7 (7-16); Aspartate Amino Transferase 65 U/L (0-34); BUN/Creatinine Ratio 32 Ratio (12-20); Bilirubin,Total 0.4 mg/dL (0.3-1.2); Blood Urea Nitrogen 38 mg/dL (9-23); Calcium 8.1 mg/dL (8.3-10.6); Calcium (Corrected) 8.7 mg/dL (8.5-10.1); Carbon Dioxide 24.6 mMol/L (20.0-31.0); Chloride 106 mMol/L (98-107); Creatinine (Component) 1.2 mg/dL (0.6-1.3); Estimated Creatinine Clearance 80.7 mL/min (>60); Globulin 3.6 gm/dL (2.3-3.5); Glucose 140 mg/dL (74-106); Magnesium 1.6 mg/dL (1.6-2.6); Osmolality,Calculated 286 (275-295); Phosphorous 2.6 mg/dL (2.4-5.1); Potassium 3.4 mMol/L (3.4-5.1); Sodium 138 mMol/L (136-145); Total Protein 6.8 gm/dL (5.7-8.2); eGFR > 60 See Note
[2024-01-14] MEDS: PIPER/TAZO 3.375 GM 50 ML IV ×3 (06:38→22:49)
[2024-01-14 07:35] LABS: Vancomycin,Trough 17.1 mcg/mL (5.0-10.0)
--- NOTE | 2024-01-14 07:40 | PC.NURSE ---
Patient will need new home health orders if patient's plan is to return home with home health.
[2024-01-14] MEDS: PANTOPRAZOLE INJ 40 MG VIAL IVP (08:39)
[2024-01-14] MEDS: INSULIN GLARGINE (Lantus) 5 UNIT/0.05 ML (PER 5 UNITS) 10 UNIT SC (08:39)
[2024-01-14] MEDS: HEPARIN SOD INJ 5000 UNIT/ML VIAL SC ×2 (08:40→21:06)
[2024-01-14] MEDS: amLODIPine BESYLATE 5 MG TABLET 10 MG PO (08:40)
[2024-01-14] MEDS: VANCOMYCIN/NS 750 MG IVPB 750 MG/150 ML BAG 120 MG IV ×2 (10:27→21:05)
--- NOTE | 2024-01-14 11:59 | PC.NURSE ---
Hand off report given to Mirella TURCIOS.
--- NOTE | 2024-01-14 14:46 | ESPR_ITS ---
<Statement entered by Cr Carey MD - 01/15/24 20:56> Senior Resident Attestation: I supervised/discussed management plan with editing intern physician Dr. Goncalves, and was involved in the care of this patient. I personally saw and examined the patient and discussed the assessment and plan with the entire medicine team, including my attending. I agree with the assessment and plan as documented. Per general surgery recs resumed TPN along with regular diet. Chest tube drain remains low, will reassess tomorrow for possible removal and order CXR. Patient's care was discussed with attending physician, Dr. Abrams. Cr Carey MD PGY-2. Documentation for date of: 01/14/24 Subjective Subjective Interval history: Patient seen at bedside this morning. No overnight events. Patient has had multiple surgical procedures due to complications from his initial appendectomy. Currently the patient is in the ICU, but has been downgraded today to the medical floors as he is extubated and hemodynamically stable. Patient was complaining of pain in his stomach most likely from the surgical procedures as well as some cough which is most likely from intubation. His wound VAC was draining, pleuritic drainage was also draining and chest tube. General surgeon wanted to start TPN again today as patient has been having some minimal oral intake. TPN was started after it had been initially discontinued at 6 AM today. No other complaints at this time. Exam Vital Signs Temp Pulse Resp BP Pulse Ox O2 Del Method O2 Flow Rate 99 F 103 H 30 H 145/90 H 97 Nasal Cannula 6 01/14/24 12:00 01/14/24 12:00 01/14/24 12:00 01/14/24 12:00 01/14/24 12:00 01/14/24 12:00 01/13/24 16:00 FiO2 30 01/12/24 08:43 Narrative Exam General: A/O x3, no acute distress, resting in bed Eyes: PERRL, EOMI. Anicteric, vision grossly intact. Ears: No ear pain, no ear discharge, Hearing grossly intact. Nose: No nasal discharge. Mouth/Throat: Dry mucous membranes, no redness, no lesions. Neck: Neck supple, non-tender, no cervical lymphadenopathy. Chest: Chest tube in place with no leakage Lungs: Clear KYA to auscultation and percussion, No accessory muscle use. Cardio: Normal S1/S2, regular rhythm, no murmurs, no JVD Abdomen: Soft, Wound VAC in place with clean margins and healthy granulation tissue, pleuritic drainage in place, tenderness around surgical incision, no palpable masses, peristalsis present, no guarding or rebound. Extremities: Symmetrical, no significant deformities, no peripheral edema , non-tender, peripheral pulses presents. Skin: No rashes, no lesions, warm to touch. Neuro: No focal neurological deficits. motor and sensory intact Psych: Cooperative, appropriate mood and effect. Objective Labs 01/29/24 05:25 01/29/24 05:25 Labs: Laboratory Results - last 24 hr 01/14/24 04:53 WBC 12.3 H RBC 2.79 L Hgb 7.8 L Hct 23.4 L MCV 84 MCH 28.0 MCHC 33.3 RDW Std Deviation 43.2 Plt Count 419 D Neut % (Auto) 73 Lymph % (Auto) 12 [place] % (Auto) 10 Eos % (Auto) 3 Baso % (Auto) 1 Neut # (Auto) 8.9 H Lymph # (Auto) 1.5 [place] # (Auto) 1.3 H Eos # (Auto) 0.3 Baso # (Auto) 0.1 Immature Gran # (Auto) 0.15 H Absolute Nucleated RBC 0.02 H Immature Gran % 1 H Nucleated RBC % 0 Sodium 138 Potassium 3.4 Chloride 106 Carbon Dioxide 24.6 Anion Gap 7 BUN 38 H Creatinine 1.2 Estim Creat Clear Calc 80.7 eGFR > 60 BUN/Creatinine Ratio 32 H Glucose 140 H D Calculated Osmolality 286 Calcium 8.1 L Corrected Calcium 8.7 Phosphorus 2.6 Magnesium 1.6 Total Bilirubin 0.4 AST 65 H ALT 49 Alkaline Phosphatase 174 H Total Protein 6.8 Albumin 3.2 L Globulin 3.6 H Albumin/Globulin Ratio 0.9 L Vancomycin Trough 17.1 H ABG Interpretation ABG results: 12/21/23 12/24/23 12/25/23 15:50 19:45 02:34 ABG pH 7.40 7.23 L D ABG pCO2 40 56 H D ABG pO2 134 H 229 H D ABG HCO3 25 24 ABG O2 Saturation 99 H 100 H ABG Base Excess 0 -5 L VBG pH 7.48 VBG pCO2 35 L VBG pO2 56 VBG Base Excess 2 12/25/23 12/25/23 12/26/23 04:54 10:48 06:56 ABG pH 7.25 L 7.33 L 7.34 L ABG pCO2 52 H 45 43 ABG pO2 93 D 99 95 ABG HCO3 23 23 23 ABG O2 Saturation 97 98 98 ABG Base Excess -5 L -3 -2 VBG pH VBG pCO2 VBG pO2 VBG Base Excess 12/26/23 01/05/24 01/06/24 10:15 08:13 13:50 ABG pH 7.36 7.37 7.42 ABG pCO2 41 38 30 L ABG pO2 87 75 L 90 ABG HCO3 23 22 19 L ABG O2 Saturation 98 96 98 ABG Base Excess -2 -3 -5 L VBG pH VBG pCO2 VBG pO2 VBG Base Excess 01/06/24 01/07/24 01/07/24 21:44 00:30 04:35 ABG pH 7.12 L* D 7.22 L D 7.27 L ABG pCO2 69 H D 52 H D 45 ABG pO2 261 H D 161 H D 209 H D ABG HCO3 22 21 21 ABG O2 Saturation 100 H 99 H 100 H ABG Base Excess -7 L -6 L -6 L VBG pH VBG pCO2 VBG pO2 VBG Base Excess 01/08/24 01/09/24 01/09/24 04:50 04:14 15:49 ABG pH 7.24 L 7.26 L 7.27 L ABG pCO2 47 50 H 51 H ABG pO2 97 D 97 90 ABG HCO3 20 22 23 ABG O2 Saturation 98 98 97 ABG Base Excess -7 L -5 L -4 L VBG pH VBG pCO2 VBG pO2 VBG Base Excess 01/10/24 01/11/24 01/12/24 04:52 04:35 05:24 ABG pH 7.33 L 7.34 L 7.31 L ABG pCO2 43 43 49 H ABG pO2 101 99 106 ABG HCO3 23 23 25 ABG O2 Saturation 98 98 98 ABG Base Excess -3 -3 -2 VBG pH VBG pCO2 VBG pO2 VBG Base Excess Quality Measures Quality Measures VTE prophylaxis Assessment & Plan Assessment Current Active Medications: Generic Name Dose Route Start Last Admin Trade Name Freq PRN Reason Stop Dose Admin Acetaminophen 650 mg 12/31/23 13:25 01/02/24 00:03 Acetaminophen 325 Mg Tablet PO 01/20/24 23:30 650 mg Q6HR PRN Administration Pain (1-3) and FEVER>100.3 Amlodipine Besylate 10 mg 01/13/24 12:30 01/14/24 08:40 Amlodipine Besylate 5 Mg Tablet PO 02/12/24 12:29 10 mg QDAY TAL Administration Dextrose 25 ml 01/04/24 14:37 Dextrose 50%-Water Inj 50 Ml Syringe IV 02/03/24 14:36 Q15MIN PRN BG 50-70 responsive npo pt Dextrose 50 ml 01/04/24 14:37 Dextrose 50%-Water Inj 50 Ml Syringe IV 02/03/24 14:36 Q15MIN PRN BG <50 OR BG <70 & pt unresponsive Glucagon 1 mg 01/07/24 11:34 Glucagon Inj 1 Mg Vial IM Q15MIN PRN BG <70, and no IV access Heparin Sodium (Porcine) 5,000 unit 01/11/24 09:00 01/14/24 08:40 Heparin Sod Inj 5000 Unit/Ml Vial SC 01/25/24 08:59 5,000 unit Q12HR TAL Administration Vancomycin/Sodium Chloride 750 mg in 150 mls @ 120 mls/hr 01/10/24 10:00 01/14/24 10:27 Vancomycin/Ns 750 Mg Ivpb IV 01/17/24 09:59 120 mls/hr BID@1000,2200 TAL Administration Protocol Piperacillin/Tazobactam/Dextrose 50 mls @ 12.5 mls/hr 01/12/24 16:10 01/14/24 06:38 Zosyn IV 01/18/24 21:59 12.5 mls/hr Q8HR TAL Administration Insulin Glargine 10 unit 01/04/24 14:45 01/14/24 08:39 Insulin Glargine (Lantus) 5 Unit/0.05 Ml (Per 5 Units) SC 02/03/24 14:44 10 unit QDAY TAL Administration Insulin Human Lispro 0 unit 01/14/24 07:30 01/14/24 12:25 Insulin Lispro (Admelog) 1 Unit/0.01 Ml Unit SC 02/13/24 07:29 Not Given ACHS TAL Protocol Labetalol HCl 10 mg 01/05/24 19:16 01/13/24 13:24 Labetalol Inj 5 Mg/Ml Vial 20 Ml IVP 02/04/24 19:29 10 mg Q6H PRN Administration SBP >170, DBP>110 Melatonin 3 mg 12/28/23 21:00 01/13/24 22:07 Melatonin 3 Mg Tablet PO 01/27/24 20:59 3 mg HS TAL Administration Morphine Sulfate 4 mg 01/12/24 08:56 01/13/24 22:08 Morphine Sulf Inj 10 Mg/Ml Vial IVP 01/17/24 08:55 4 mg Q4HR PRN Administration PAIN SCALE 7-10 (Severe Protocol Ondansetron HCl 4 mg 12/21/23 23:31 01/04/24 06:56 Ondansetron Inj 2 Mg/Ml Inj 2 Ml IV 01/20/24 23:30 4 mg Q4HR PRN Administration NAUSEA OR VOMITING Pantoprazole Sodium 40 mg 01/01/24 09:00 01/14/24 08:39 Pantoprazole Inj 40 Mg Vial IVP 01/31/24 08:59 40 mg QDAY TAL Administration Protocol Pharmacy Consult 1 each 01/10/24 09:00 Pharmacy To Dose Vancomycin IV 01/22/24 08:59 QDAY PRN PROTOCOL Plan 43-year-old male with no significant past medical history who was admitted to the hospital by general surgery on 12/21/2023 for acute perforated appendicitis with multiple postop complications. #Sepsis likely secondary to acute perforated appendicitis #Acute perforated appendicitis #Small bowel perforation s/p ileostomy #Peritonitis #Subcapsular abscess s/p CT-guided drain placement ?Initially patient met SIRS 2 out of 4 with leukocytosis and tachycardia ?Patient underwent multiple surgical procedures including laparoscopic appendectomy on day of admission (12/21/2023), 2 ex laps (12/25/2023 and 01/06/2024), and additional secondary closure of abdomen incision (01/01/2024). ?Multiple blood cultures, urine cultures, sputum cultures, and abdominal wound cultures have come back negative ?Abdomen/pelvis CT on 01/12/2024 showed localized fluid collection on the right lower abdomen consistent with an abscess ?Patient has percutaneous drainage catheter in place with proper drainage ?Patient has not been having good oral intake therefore TPN will be continued as per general surgeon Plan: ?Continue fluconazole (day 14), Zosyn (day 4 on the second treatment), vancomycin (day 8) ?Continue TPN at 100/h ?Wound care ?Continue drainage measurements ?Will continue advancing diet as tolerated ?Will continue to monitor for any spiking any fever or elevated WBC #Acute hypoxic respiratory failure #Pleural effusion ?Patient was intubated in the ICU and was successfully extubated on 01/12/2024 ?Ch chest x-ray on 01/12/2024 showed no pneumonia and no right pleural fluid ?Patient has chest tube in place with no output today Plan: ?Pleural fluid cultures pending ?Will discuss possibility to remove chest tube ?Will continue to monitor #Normocytic normochromic anemia ?Hgb 7.8 ?Most likely a component of some blood loss given multiple surgical procedures Plan: ?Will transfuse if hemoglobin less than 7 ?Will continue to monitor #ANITHA ?Creatinine 1.2 today Plan: ?Avoid nephrotoxic agents ?Renally dose medications ?Will continue to monitor Thank you for allowing us to be part of the patient's care. Disposition: Patient seen in ICU Diet: Regular GI prophylaxis: protonix DVT prophylaxis: heparin sc Code: Full code Nutritional: TPN Lines: Chest tube, abscess drainage Case disclosed with Attending Dr. Abrams and My senior Dr. Carey PGY2. Cortez Harp PGY1 Attending Provider Attestation/Addendum 43-year-old male with no previous medical history admitted for abdominal pain by surgical team and noted to have perforated appendicitis status post surgical intervention on 12/21/2023. Patient noted to have prolonged hospital course with multiple intra-abdominal abscesses and multiple surgical intervention first being laparoscopic appendectomy on 12/21/2023 followed by 2 expiratory laparotomy on 12/25/2023 and 01/06/[address]-guided intra-abdominal drainage requiring TPN. As of now, patient continues to have wound VAC in place and surgical team on board. In addition, patient also on meropenem and continues to have IR guided catheter in place. Furthermore, patient also noted to have acute kidney injury previously with an elevation of creatinine 2.9 however down trended to 1.3. Will continue following the patient with surgical team and recommend continuing meropenem and close hemodynamic monitoring. Overnight, patient creatinine up trended to 2.4 unknown etiology at this point however patient is not on any nephrotoxic agents. Patient did not have any episodes of hypotension to suggest ATN. Creatinine kinase is normal. Patient has a wound VAC in place and low suspicion for abdominal compartment syndrome. Will consult nephrology and continue IV fluid resuscitation. I reviewed above note and agree with findings and plans. I have also personally examined the patient with medicine team and went over assessment and plan with medical team including editing intern and resident physician.
--- NOTE | 2024-01-14 15:50 | PD.SURPROG ---
Documentation for date of: 01/14/24 Subjective Subjective Brief History: As above Narrative: Patient is extubated and breathing well. NG tube has been removed but he is not able to eat much the diet that is given to him Exam Vital Signs Temp Pulse Resp BP Pulse Ox O2 Del Method O2 Flow Rate 99 F 103 H 30 H 145/90 H 97 Nasal Cannula 6 01/14/24 12:00 01/14/24 12:00 01/14/24 12:00 01/14/24 12:00 01/14/24 12:00 01/14/24 12:00 01/13/24 16:00 FiO2 30 01/12/24 08:43 Vital signs showed still tachycardia with heart rate around 100 Routine Abdominal Exam Comments: Abdominal examination is unchanged. There is minimal drainage in the subphrenic abscess collection. Results Results: Laboratory Laboratory Narrative: Laboratory results show improving WBC. Assessment & Plan Assessment Additional comments: Impression: Patient seems to be stabilizing after drainage of the subphrenic abscess Patient is still not eating well Plan Plan: We shall continue TPN for another couple of days still the patient eats well. Procedures Procedures Exploratory laparotomy and drainage of the subcutaneous infection and wound VAC application
[2024-01-14] MEDS: TPN-OUTSOURCED 1.5L - 2.49L 2,000 ML 100 ML IV (16:57)
[2024-01-14] MEDS: MELATONIN 3 MG TABLET PO (21:05)
[2024-01-14] MEDS: INSULIN LISPRO (AdmeLOG) 1 UNIT/0.01 ML UNIT SC (21:05)
[2024-01-15] VITALS (9 sets, daily range): BP systolic 137–147; BP diastolic 83–92; PULSE 91–124; RESP 22–98; TEMP 36.5–37.6; O2SAT 95–99
[2024-01-15] MEDS: PIPER/TAZO 3.375 GM 50 ML IV ×3 (05:50→21:31)
[2024-01-15 06:13] LABS: Basophils # (Auto) 0.1 Thou/mm3 (0.0-0.2); Basophils % (Auto) 1 % (0-2.5); Eosinophils # (Auto) 0.2 Thou/mm3 (0.0-0.5); Eosinophils % (Auto) 2 % (0-10); Immature Granulocytes % (Auto) 1 % (0-0); Immature Granulocytes Auto 0.09 Thou/mm3 (0.00-0.00); Lymphocytes # (Auto) 1.6 Thou/mm3 (1.0-4.8); Lymphocytes % (Auto) 14 % (10-50); Mean Corpuscular HGB Conc 33.9 g/dl (31.0-37.0); Mean Corpuscular Hemoglobin 28.2 pg (25.0-35.0); Mean Corpuscular Volume 83 fL (80-100); Monocytes # (Auto) 1.4 Thou/mm3 (0.0-0.8); Monocytes % (Auto) 12 % (0-12); Neutrophils # (Auto) 8.3 Thou/mm3 (1.8-7.7); Neutrophils % (Auto) 71 % (37-80); Nucleated Red Blood Cell % 0 /100 WBC (0); Platelet Count 397 Thou/mm3 (140-440); RDW Standard Deviation 42.2 fL (35.1-43.9); Red Blood Count 2.77 Miln/mm3 (4.50-5.90); White Blood Count 11.7 Thou/mm3 (3.8-10.6)
[2024-01-15 06:18] LABS: Hemoglobin 7.8 g/dL (13.5-16.0)
[2024-01-15 06:24] LABS: Alanine Aminotransferase 40 U/L (10-49); Albumin, Serum 3.2 gm/dL (3.5-5.0); Albumin/Globulin Ratio 0.8 (1.2-2.2); Alkaline Phosphatase 174 U/L (46-116); Anion Gap 7 (7-16); Aspartate Amino Transferase 39 U/L (0-34); BUN/Creatinine Ratio 30 Ratio (12-20); Bilirubin,Total 0.4 mg/dL (0.3-1.2); Blood Urea Nitrogen 39 mg/dL (9-23); Calcium 7.8 mg/dL (8.3-10.6); Calcium (Corrected) 8.4 mg/dL (8.5-10.1); Carbon Dioxide 22.9 mMol/L (20.0-31.0); Chloride 105 mMol/L (98-107); Creatinine (Component) 1.3 mg/dL (0.6-1.3); Estimated Creatinine Clearance 70.4 mL/min (>60); Globulin 3.8 gm/dL (2.3-3.5); Glucose 183 mg/dL (74-106); Magnesium 1.6 mg/dL (1.6-2.6); Osmolality,Calculated 284 (275-295); Phosphorous 2.6 mg/dL (2.4-5.1); Potassium 3.1 mMol/L (3.4-5.1); Sodium 135 mMol/L (136-145); eGFR > 60 See Note
[2024-01-15] MEDS: INSULIN LISPRO (AdmeLOG) 1 UNIT/0.01 ML UNIT SC ×4 (07:39→20:15)
[2024-01-15] MEDS: INSULIN GLARGINE (Lantus) 5 UNIT/0.05 ML (PER 5 UNITS) 10 UNIT SC (08:21)
[2024-01-15] MEDS: HEPARIN SOD INJ 5000 UNIT/ML VIAL SC ×2 (08:21→20:14)
[2024-01-15] MEDS: PANTOPRAZOLE INJ 40 MG VIAL IVP (08:21)
[2024-01-15] MEDS: amLODIPine BESYLATE 5 MG TABLET 10 MG PO (08:22)
[2024-01-15] MEDS: POTASSIUM CHL 10 mEq IVPB 10 MEQ/100 ML BAG 100 MEQ IV ×4 (08:22→11:54)
[2024-01-15] MEDS: Magnesium Sulfate 2 GM Ivpb 2 GM/50 ML BAG IV (08:22)
--- NOTE | 2024-01-15 09:22 | XR_ITS ---
Examination: AP chest single view Technique one AP portable upright chest single view Exam date and time: January 15, 2024 1050 hours INDICATIONS: History right pleural effusion post chest tube placement FINDINGS: Right chest tube satisfactory position with no significant right pleural disease Normal heart size Right internal jugular central line tip SVC satisfactory position IMPRESSION: No significant pleural disease
--- NOTE | 2024-01-15 09:23 | ESPR_ITS ---
Documentation for date of: 01/15/24 Subjective Subjective Interval history: Patient seen at bedside this morning. No overnight events. Patient stated that his pain is well-controlled. He had no output from chest tube therefore chest x-ray was ordered to see if chest tube can be taken out. Patient is having good output from the wound VAC and peritoneal drainage as well. Dietitian stated that patient now is on some nutritional supplements and he has been eating more quantities now, therefore TPN can most likely be discontinued tomorrow, but will reassess. No other complaints at this time. Exam Vital Signs Temp Pulse Resp BP Pulse Ox O2 Del Method O2 Flow Rate 98.6 F 100 27 H 147/85 H 98 Room Air 6 01/15/24 04:00 01/15/24 08:22 01/15/24 06:18 01/15/24 08:22 01/15/24 04:00 01/15/24 04:00 01/13/24 16:00 FiO2 30 01/12/24 08:43 Narrative Exam General: A/O x3, no acute distress, resting in bed Eyes: PERRL, EOMI. Anicteric, vision grossly intact. Ears: No ear pain, no ear discharge, Hearing grossly intact. Nose: No nasal discharge. Mouth/Throat: Dry mucous membranes, no redness, no lesions. Neck: Neck supple, non-tender, no cervical lymphadenopathy. Chest: Chest tube in place with no leakage Lungs: Clear KYA to auscultation and percussion, No accessory muscle use. Cardio: Normal S1/S2, regular rhythm, no murmurs, no JVD Abdomen: Soft, Wound VAC in place with clean margins and healthy granulation tissue, pleuritic drainage in place, tenderness around surgical incision, no palpable masses, peristalsis present, no guarding or rebound. Extremities: Symmetrical, no significant deformities, no peripheral edema , non-tender, peripheral pulses presents. Skin: No rashes, no lesions, warm to touch. Neuro: No focal neurological deficits. motor and sensory intact Psych: Cooperative, appropriate mood and effect. Objective Labs 01/15/24 05:30 01/15/24 05:30 Labs: Laboratory Results - last 24 hr 01/15/24 05:30 WBC 11.7 H RBC 2.77 L Hgb 7.8 L Hct 23.0 L MCV 83 MCH 28.2 MCHC 33.9 RDW Std Deviation 42.2 Plt Count 397 Neut % (Auto) 71 Lymph % (Auto) 14 [place] % (Auto) 12 Eos % (Auto) 2 Baso % (Auto) 1 Neut # (Auto) 8.3 H Lymph # (Auto) 1.6 [place] # (Auto) 1.4 H Eos # (Auto) 0.2 Baso # (Auto) 0.1 Immature Gran # (Auto) 0.09 H Absolute Nucleated RBC 0.00 Immature Gran % 1 H Nucleated RBC % 0 Sodium 135 L Potassium 3.1 L Chloride 105 Carbon Dioxide 22.9 Anion Gap 7 BUN 39 H Creatinine 1.3 Estim Creat Clear Calc 70.4 eGFR > 60 BUN/Creatinine Ratio 30 H Glucose 183 H Calculated Osmolality 284 Calcium 7.8 L Corrected Calcium 8.4 L Phosphorus 2.6 Magnesium 1.6 Total Bilirubin 0.4 AST 39 H ALT 40 Alkaline Phosphatase 174 H Total Protein 7.0 Albumin 3.2 L Globulin 3.8 H Albumin/Globulin Ratio 0.8 L ABG Interpretation ABG results: 12/21/23 12/24/23 12/25/23 15:50 19:45 02:34 ABG pH 7.40 7.23 L D ABG pCO2 40 56 H D ABG pO2 134 H 229 H D ABG HCO3 25 24 ABG O2 Saturation 99 H 100 H ABG Base Excess 0 -5 L VBG pH 7.48 VBG pCO2 35 L VBG pO2 56 VBG Base Excess 2 12/25/23 12/25/23 12/26/23 04:54 10:48 06:56 ABG pH 7.25 L 7.33 L 7.34 L ABG pCO2 52 H 45 43 ABG pO2 93 D 99 95 ABG HCO3 23 23 23 ABG O2 Saturation 97 98 98 ABG Base Excess -5 L -3 -2 VBG pH VBG pCO2 VBG pO2 VBG Base Excess 12/26/23 01/05/24 01/06/24 10:15 08:13 13:50 ABG pH 7.36 7.37 7.42 ABG pCO2 41 38 30 L ABG pO2 87 75 L 90 ABG HCO3 23 22 19 L ABG O2 Saturation 98 96 98 ABG Base Excess -2 -3 -5 L VBG pH VBG pCO2 VBG pO2 VBG Base Excess 01/06/24 01/07/2424 21:44 00:30 04:35 ABG pH 7.12 L* D 7.22 L D 7.27 L ABG pCO2 69 H D 52 H D 45 ABG pO2 261 H D 161 H D 209 H D ABG HCO3 22 21 21 ABG O2 Saturation 100 H 99 H 100 H ABG Base Excess -7 L -6 L -6 L VBG pH VBG pCO2 VBG pO2 VBG Base Excess 01/08/24 01/09/24 01/09/24 04:50 04:14 15:49 ABG pH 7.24 L 7.26 L 7.27 L ABG pCO2 47 50 H 51 H ABG pO2 97 D 97 90 ABG HCO3 20 22 23 ABG O2 Saturation 98 98 97 ABG Base Excess -7 L -5 L -4 L VBG pH VBG pCO2 VBG pO2 VBG Base Excess 01/10/24 01/11/24 01/12/24 04:52 04:35 05:24 ABG pH 7.33 L 7.34 L 7.31 L ABG pCO2 43 43 49 H ABG pO2 101 99 106 ABG HCO3 23 23 25 ABG O2 Saturation 98 98 98 ABG Base Excess -3 -3 -2 VBG pH VBG pCO2 VBG pO2 VBG Base Excess Quality Measures Quality Measures VTE prophylaxis Assessment & Plan Assessment Current Active Medications: Generic Name Dose Route Start Last Admin Trade Name Freq PRN Reason Stop Dose Admin Acetaminophen 650 mg 12/31/23 13:25 01/02/24 00:03 Acetaminophen 325 Mg Tablet PO 01/20/24 23:30 650 mg Q6HR PRN Administration Pain (1-3) and FEVER>100.3 Amlodipine Besylate 10 mg 01/13/24 12:30 01/15/24 08:22 Amlodipine Besylate 5 Mg Tablet PO 02/12/24 12:29 10 mg QDAY TAL Administration Dextrose 25 ml 01/04/24 14:37 Dextrose 50%-Water Inj 50 Ml Syringe IV 02/03/24 14:36 Q15MIN PRN BG 50-70 responsive npo pt Dextrose 50 ml 01/04/24 14:37 Dextrose 50%-Water Inj 50 Ml Syringe IV 02/03/24 14:36 Q15MIN PRN BG <50 OR BG <70 & pt unresponsive Glucagon 1 mg 01/07/24 11:34 Glucagon Inj 1 Mg Vial IM Q15MIN PRN BG <70, and no IV access Heparin Sodium (Porcine) 5,000 unit 01/11/24 09:00 01/15/24 08:21 Heparin Sod Inj 5000 Unit/Ml Vial SC 01/25/24 08:59 5,000 unit Q12HR TAL Administration Vancomycin/Sodium Chloride 750 mg in 150 mls @ 120 mls/hr 01/10/24 10:00 01/14/24 21:05 Vancomycin/Ns 750 Mg Ivpb IV 01/17/24 09:59 120 mls/hr BID@1000,2200 TAL Administration Protocol Piperacillin/Tazobactam/Dextrose 50 mls @ 12.5 mls/hr 01/12/24 16:10 01/15/24 05:50 Zosyn IV 01/18/24 21:59 12.5 mls/hr Q8HR TAL Administration Amino Acids 2,000 mls @ 100 mls/hr 01/14/24 17:00 01/14/24 16:57 Tpn-Outsourced IV 01/15/24 12:59 100 mls/hr .Q20H TAL Administration Protocol Potassium Chloride 10 meq in 100 mls @ 100 mls/hr 01/15/24 07:54 01/15/24 08:22 Kcl Ivpb IV 01/15/24 11:53 100 mls/hr Q1H TAL Administration Magnesium Sulfate 2 gm in 50 mls @ 25 mls/hr 01/15/24 07:54 01/15/24 08:22 Magnesium Sulfate Ivpb IV 01/15/24 09:53 25 mls/hr X1 ONE Administration Insulin Glargine 10 unit 01/04/24 14:45 01/15/24 08:21 Insulin Glargine (Lantus) 5 Unit/0.05 Ml (Per 5 Units) SC 02/03/24 14:44 10 unit QDAY TAL Administration Insulin Human Lispro 0 unit 01/14/24 07:30 01/15/24 07:39 Insulin Lispro (Admelog) 1 Unit/0.01 Ml Unit SC 02/13/24 07:29 1 unit ACHS TAL Administration Protocol Labetalol HCl 10 mg 01/05/24 19:16 01/13/24 13:24 Labetalol Inj 5 Mg/Ml Vial 20 Ml IVP 02/04/24 19:29 10 mg Q6H PRN Administration SBP >170, DBP>110 Melatonin 3 mg 12/28/23 21:00 01/14/24 21:05 Melatonin 3 Mg Tablet PO 01/27/24 20:59 3 mg HS TAL Administration Morphine Sulfate 4 mg 01/12/24 08:56 01/13/24 22:08 Morphine Sulf Inj 10 Mg/Ml Vial IVP 01/17/24 08:55 4 mg Q4HR PRN Administration PAIN SCALE 7-10 (Severe Protocol Ondansetron HCl 4 mg 12/21/23 23:31 01/04/24 06:56 Ondansetron Inj 2 Mg/Ml Inj 2 Ml IV 01/20/24 23:30 4 mg Q4HR PRN Administration NAUSEA OR VOMITING Pantoprazole Sodium 40 mg 01/01/24 09:00 01/15/24 08:21 Pantoprazole Inj 40 Mg Vial IVP 01/31/24 08:59 40 mg QDAY TAL Administration Protocol Pharmacy Consult 1 each 01/10/24 09:00 Pharmacy To Dose Vancomycin IV 01/22/24 08:59 QDAY PRN PROTOCOL Plan 43-year-old male with no significant past medical history who was admitted to the hospital by general surgery on 12/21/2023 for acute perforated appendicitis with multiple postop complications. #Sepsis likely secondary to acute perforated appendicitis #Acute perforated appendicitis #Small bowel perforation s/p ileostomy #Peritonitis #Subcapsular abscess s/p CT-guided drain placement ?Initially patient met SIRS 2 out of 4 with leukocytosis and tachycardia ?Patient underwent multiple surgical procedures including laparoscopic appendectomy on day of admission (12/21/2023), 2 ex laps (12/25/2023 and 01/06/2024), and additional secondary closure of abdomen incision (01/01/2024). ?Multiple blood cultures, urine cultures, sputum cultures, and abdominal wound cultures have come back negative ?Abdomen/pelvis CT on 01/12/2024 showed localized fluid collection on the right lower abdomen consistent with an abscess ?Patient has percutaneous drainage catheter in place with proper drainage ?Patient has not been having good oral intake therefore TPN will be continued as per general surgeon -WBC 11.7 today (downtrending) Plan: ?Continue fluconazole (day 14), Zosyn (day 4 on the second treatment), DC'd vancomycin (day 9) ?Continue TPN at 100/h, will reasses for discontinuing tomorrow ?Wound care ?Continue drainage measurements ?Will continue advancing diet as tolerated ?Will continue to monitor for any spiking any fever or elevated WBC #Acute hypoxic respiratory failure #Pleural effusion ?Patient was intubated in the ICU and was successfully extubated on 01/12/2024 ?Chest x-ray on 01/12/2024 showed no pneumonia and no right pleural fluid ?Patient has chest tube in place with no output today either -Will assess possibility to take chest tube out Plan: ?Pleural fluid cultures pending -CXR ordered ?Will discuss possibility to remove chest tube ?Will continue to monitor #Normocytic normochromic anemia ?Hgb 7.8 ?Most likely a component of some blood loss given multiple surgical procedures Plan: ?Will transfuse if hemoglobin less than 7 ?Will continue to monitor #Hypokalemia -Potassium 3.1 today Plan: -40 meq potassium x1 today -Will replete as necessary -Will continue to monitor #ANITHA ?Creatinine 1.3 today Plan: ?Avoid nephrotoxic agents ?Renally dose medications ?Will continue to monitor Thank you for allowing us to be part of the patient's care. Disposition: Patient seen in ICU Diet: Regular GI prophylaxis: protonix DVT prophylaxis: heparin sc Code: Full code Nutritional: TPN Lines: Chest tube, abscess drainage Case disclosed with Attending Dr. Raman and My senior Dr. Landa PGY3. Cortez Harp PGY1 Attending Provider Attestation/Addendum I reviewed labs, imaging, EKG, home medications and prior available records. Face to face evaluation was performed by me. I have personally examined the patient and discussed assessment and plan with the IM team. I reviewed the resident note and agree with the plan with exceptions as below. Sepsis secondary to acute appendicitis: Status post appendectomy. Complicated by small bowel perforation and pelvic abscess, peritonitis status post ex lap. Status post [address] with wound VAC. Continue IV Zosyn. Discussed with ID: Discontinued vancomycin. Trend WBC: Downtrending. Continue wound VAC. Discussed with surgery: Continue TPN for now. Continue oral feeds. Right-sided pleural fluid: Status post chest tube insertion: Will order repeat chest x-ray and if improving, will contact the ICU team to remove the chest tube. Monitor respiratory status.
[2024-01-15] MEDS: ACETAMINOPHEN 325 MG TABLET 650 MG PO (09:48)
[2024-01-15] MEDS: VANCOMYCIN/NS 750 MG IVPB 750 MG/150 ML BAG 120 MG IV (09:49)
[2024-01-15] MEDS: CALCIUM GLUC/NS 1000MG IVPB 1,000 MG/50 ML BAG 50 MG IV (11:54)
[2024-01-15] MEDS: Magnesium Sulfate 2 GM Ivpb 50 ML IV (11:55)
[2024-01-15] MEDS: [UNRECOGNIZED DRUG - OTHER] IV (13:58)
[2024-01-15] MEDS: SODIUM CHLORIDE 0.9% IV (13:58)
[2024-01-15] MEDS: POTASSIUM ACET IV (13:58)
[2024-01-15] MEDS: MULTIVITAMIN IV (13:58)
--- NOTE | 2024-01-15 16:29 | ESPR_ITS ---
Addendum Progress Note Addendum Date of report being addended: 01/16/24 Narrative: I reviewed labs, imaging, EKG, home medications and prior available records. Face to face evaluation was performed by me. I have personally examined the patient and discussed assessment and plan with the IM team. I reviewed the resident note and agree with the plan with exceptions as below. Sepsis secondary to acute appendicitis: Status post appendectomy. Complicated by small bowel perforation and pelvic abscess, peritonitis status post ex lap. Status post [address] with wound VAC. Continue IV Zosyn. Discussed with ID: Discontinued vancomycin. Trend WBC: Uptrending. Continue wound VAC. Discussed with surgery: Continue TPN for now. Continue oral feeds. Will plan to remove the drain by IR. Right-sided pleural fluid: Status post chest tube insertion: Ordered repeat x- ray that showed resolution of the pleural effusion. Will discuss removal of the chest tube with ICU team. Monitor respiratory status.
[2024-01-15] MEDS: ONDANSETRON INJ 2 MG/ML INJ 2 ML 4 MG IV (17:12)
--- NOTE | 2024-01-15 18:38 | PC.NURSE ---
patient complaining of abdominal pain and distension, called dr fish and made aware, awating for new order for pain, patient refusing tylenol secondary to vomiting every time he take it.
[2024-01-15] MEDS: MORPHINE SULF INJ 10 MG/ML VIAL 2 MG IVP (19:07)
[2024-01-15] MEDS: MELATONIN 3 MG TABLET PO (20:14)
[2024-01-15 21:38] LABS: Vancomycin,Trough 15.8 mcg/mL (5.0-10.0)
[2024-01-16] VITALS (14 sets, daily range): BP systolic 123–154; BP diastolic 84–98; PULSE 96–120; RESP 14–30; TEMP 36.7–36.9; O2SAT 95–98; BMI 29.8
[2024-01-16] MEDS: PIPER/TAZO 3.375 GM 50 ML IV ×3 (05:21→21:05)
[2024-01-16] MEDS: MORPHINE SULF INJ 10 MG/ML VIAL 4 MG IVP ×2 (05:31→15:09)
[2024-01-16 05:39] LABS: Basophils # (Auto) 0.1 Thou/mm3 (0.0-0.2); Basophils % (Auto) 1 % (0-2.5); Eosinophils # (Auto) 0.3 Thou/mm3 (0.0-0.5); Eosinophils % (Auto) 2 % (0-10); Hematocrit 23.2 % (41.0-53.0); Immature Granulocytes % (Auto) 1 % (0-0); Immature Granulocytes Auto 0.14 Thou/mm3 (0.00-0.00); Lymphocytes # (Auto) 1.7 Thou/mm3 (1.0-4.8); Lymphocytes % (Auto) 12 % (10-50); Mean Corpuscular HGB Conc 33.6 g/dl (31.0-37.0); Mean Corpuscular Hemoglobin 28.5 pg (25.0-35.0); Mean Corpuscular Volume 85 fL (80-100); Monocytes # (Auto) 1.5 Thou/mm3 (0.0-0.8); Monocytes % (Auto) 10 % (0-12); Neutrophils # (Auto) 11.2 Thou/mm3 (1.8-7.7); Neutrophils % (Auto) 75 % (37-80); Nucleated Red Blood Cell % 0 /100 WBC (0); Platelet Count 307 Thou/mm3 (140-440); RDW Standard Deviation 42.6 fL (35.1-43.9); Red Blood Count 2.74 Miln/mm3 (4.50-5.90)
[2024-01-16 05:57] LABS: Hemoglobin 7.8 g/dL (13.5-16.0)
[2024-01-16 06:25] LABS: Alanine Aminotransferase 32 U/L (10-49); Albumin, Serum 3.3 gm/dL (3.5-5.0); Albumin/Globulin Ratio 0.9 (1.2-2.2); Alkaline Phosphatase 165 U/L (46-116); Anion Gap 7 (7-16); Aspartate Amino Transferase 27 U/L (0-34); BUN/Creatinine Ratio 25 Ratio (12-20); Bilirubin,Total 0.3 mg/dL (0.3-1.2); Blood Urea Nitrogen 33 mg/dL (9-23); Calcium (Corrected) 8.6 mg/dL (8.5-10.1); Carbon Dioxide 23.1 mMol/L (20.0-31.0); Chloride 104 mMol/L (98-107); Creatinine (Component) 1.3 mg/dL (0.6-1.3); Estimated Creatinine Clearance 70.4 mL/min (>60); Globulin 3.8 gm/dL (2.3-3.5); Glucose 167 mg/dL (74-106); Magnesium 1.9 mg/dL (1.6-2.6); Osmolality,Calculated 279 (275-295); Phosphorous 2.8 mg/dL (2.4-5.1); Potassium 3.2 mMol/L (3.4-5.1); Sodium 134 mMol/L (136-145); Total Protein 7.1 gm/dL (5.7-8.2); eGFR > 60 See Note
[2024-01-16] MEDS: INSULIN LISPRO (AdmeLOG) 1 UNIT/0.01 ML UNIT SC ×4 (07:43→21:14)
[2024-01-16] MEDS: PANTOPRAZOLE INJ 40 MG VIAL IVP (08:23)
[2024-01-16] MEDS: amLODIPine BESYLATE 5 MG TABLET 10 MG PO (08:23)
[2024-01-16] MEDS: HEPARIN SOD INJ 5000 UNIT/ML VIAL SC ×2 (08:23→21:15)
[2024-01-16] MEDS: INSULIN GLARGINE (Lantus) 5 UNIT/0.05 ML (PER 5 UNITS) 10 UNIT SC (08:24)
[2024-01-16] MEDS: POTASSIUM CHLORIDE 20 mEq TABCR 40 MEQ PO (08:27)
[2024-01-16] MEDS: MULTIVITAMIN IV (10:07)
[2024-01-16] MEDS: [UNRECOGNIZED DRUG - OTHER] IV (10:07)
[2024-01-16 10:28] LABS: Partial Thromboplastin Time 21.3 Seconds (22.0-36.0); Prothrombin Time 11.4 Seconds (9.0-12.2)
--- NOTE | 2024-01-16 10:31 | ESPR_ITS ---
<Statement entered by rC Carey MD - 01/16/24 18:20> Senior Resident Attestation: I supervised/discussed management plan with technical support internship physician Dr. Goncalves, and was involved in the care of this patient. I personally saw and examined the patient and discussed the assessment and plan with the entire medicine team, including my attending. I agree with the assessment and plan as documented. Patient's care was discussed with attending physician, Dr. Raman. Cr Carey MD PGY-2. Documentation for date of: 01/16/24 Subjective Subjective Interval history: Patient was seen at bedside this morning. No overnight events. Patient still having very poor oral intake, but he stated that it is not because of pain instead it is because he feels full. He would like to try to eat small amounts of food multiple times a day. Spoke with Dr. Rubio today and he asked for the peritoneal drainage to be taken out and he also took to out the chest tube today. Also mentioned to Dr. Rubio about TPN and he was okay with going down to 75 cc/h as I spoke with dietitian to place more supplemental beverages for the patient as snacks in between meals. Patient states she is having some mild pain on the left side, but no other complaint at this time. He has yet to pass flatulence since last surgery. Exam Vital Signs Temp Pulse Resp BP Pulse Ox O2 Del Method O2 Flow Rate 98.0 F 100 18 123/85 H 97 Room Air 6 01/16/24 08:00 01/16/24 08:23 01/16/24 08:00 01/16/24 08:23 01/16/24 08:00 01/16/24 08:00 01/13/24 16:00 FiO2 30 01/12/24 08:43 Narrative Exam General: A/O x3, no acute distress, resting in bed Eyes: PERRL, EOMI. Anicteric, vision grossly intact. Ears: No ear pain, no ear discharge, Hearing grossly intact. Nose: No nasal discharge. Mouth/Throat: Dry mucous membranes, no redness, no lesions. Neck: Neck supple, non-tender, no cervical lymphadenopathy. Lungs: Clear KYA to auscultation and percussion, No accessory muscle use. Cardio: Normal S1/S2, regular rhythm, no murmurs, no JVD Abdomen: Soft, Wound VAC in place with clean margins and healthy granulation tissue, tenderness in LUQ, no palpable masses, peristalsis present, no guarding or rebound. Extremities: Symmetrical, no significant deformities, no peripheral edema , non-tender, peripheral pulses presents. Skin: No rashes, no lesions, warm to touch. Neuro: No focal neurological deficits. motor and sensory intact Psych: Cooperative, appropriate mood and effect. Objective Labs 01/18/24 04:20 01/18/24 04:20 Labs: Laboratory Results - last 24 hr 01/15/24 01/16/24 21:01 04:47 WBC 15.0 H RBC 2.74 L Hgb 7.8 L Hct 23.2 L MCV 85 MCH 28.5 MCHC 33.6 RDW Std Deviation 42.6 Plt Count 307 D Neut % (Auto) 75 Lymph % (Auto) 12 [place] % (Auto) 10 Eos % (Auto) 2 Baso % (Auto) 1 Neut # (Auto) 11.2 H Lymph # (Auto) 1.7 [place] # (Auto) 1.5 H Eos # (Auto) 0.3 Baso # (Auto) 0.1 Immature Gran # (Auto) 0.14 H Absolute Nucleated RBC 0.00 Immature Gran % 1 H Nucleated RBC % 0 Sodium 134 L Potassium 3.2 L Chloride 104 Carbon Dioxide 23.1 Anion Gap 7 BUN 33 H Creatinine 1.3 Estim Creat Clear Calc 70.4 eGFR > 60 BUN/Creatinine Ratio 25 H Glucose 167 H Calculated Osmolality 279 Calcium 8.0 L Corrected Calcium 8.6 Phosphorus 2.8 Magnesium 1.9 Total Bilirubin 0.3 AST 27 ALT 32 Alkaline Phosphatase 165 H Total Protein 7.1 Albumin 3.3 L Globulin 3.8 H Albumin/Globulin Ratio 0.9 L Vancomycin Trough 15.8 H ABG Interpretation ABG results: 12/21/23 12/24/23 12/25/23 15:50 19:45 02:34 ABG pH 7.40 7.23 L D ABG pCO2 40 56 H D ABG pO2 134 H 229 H D ABG HCO3 25 24 ABG O2 Saturation 99 H 100 H ABG Base Excess 0 -5 L VBG pH 7.48 VBG pCO2 35 L VBG pO2 56 VBG Base Excess 2 12/25/23 12/25/23 12/26/23 04:54 10:48 06:56 ABG pH 7.25 L 7.33 L 7.34 L ABG pCO2 52 H 45 43 ABG pO2 93 D 99 95 ABG HCO3 23 23 23 ABG O2 Saturation 97 98 98 ABG Base Excess -5 L -3 -2 VBG pH VBG pCO2 VBG pO2 VBG Base Excess 12/26/23 01/05/24 01/06/24 10:15 08:13 13:50 ABG pH 7.36 7.37 7.42 ABG pCO2 41 38 30 L ABG pO2 87 75 L 90 ABG HCO3 23 22 19 L ABG O2 Saturation 98 96 98 ABG Base Excess -2 -3 -5 L VBG pH VBG pCO2 VBG pO2 VBG Base Excess 01/06/24 01/07/24 01/07/24 21:44 00:30 04:35 ABG pH 7.12 L* D 7.22 L D 7.27 L ABG pCO2 69 H D 52 H D 45 ABG pO2 261 H D 161 H D 209 H D ABG HCO3 22 21 21 ABG O2 Saturation 100 H 99 H 100 H ABG Base Excess -7 L -6 L -6 L VBG pH VBG pCO2 VBG pO2 VBG Base Excess 01/08/24 01/09/24 01/09/24 04:50 04:14 15:49 ABG pH 7.24 L 7.26 L 7.27 L ABG pCO2 47 50 H 51 H ABG pO2 97 D 97 90 ABG HCO3 20 22 23 ABG O2 Saturation 98 98 97 ABG Base Excess -7 L -5 L -4 L VBG pH VBG pCO2 VBG pO2 VBG Base Excess 01/10/24 01/11/24 01/12/24 04:52 04:35 05:24 ABG pH 7.33 L 7.34 L 7.31 L ABG pCO2 43 43 49 H ABG pO2 101 99 106 ABG HCO3 23 23 25 ABG O2 Saturation 98 98 98 ABG Base Excess -3 -3 -2 VBG pH VBG pCO2 VBG pO2 VBG Base Excess Quality Measures Quality Measures VTE prophylaxis Assessment & Plan Assessment Current Active Medications: Generic Name Dose Route Start Last Admin Trade Name Freq PRN Reason Stop Dose Admin Acetaminophen 650 mg 12/31/23 13:25 01/15/24 09:48 Acetaminophen 325 Mg Tablet PO 01/20/24 23:30 650 mg Q6HR PRN Administration Pain (1-3) and FEVER>100.3 Amlodipine Besylate 10 mg 01/13/24 12:30 01/16/24 08:23 Amlodipine Besylate 5 Mg Tablet PO 02/12/24 12:29 10 mg QDAY TAL Administration Dextrose 25 ml 01/04/24 14:37 Dextrose 50%-Water Inj 50 Ml Syringe IV 02/03/24 14:36 Q15MIN PRN BG 50-70 responsive npo pt Dextrose 50 ml 01/04/24 14:37 Dextrose 50%-Water Inj 50 Ml Syringe IV 02/03/24 14:36 Q15MIN PRN BG <50 OR BG <70 & pt unresponsive Glucagon 1 mg 01/07/24 11:34 Glucagon Inj 1 Mg Vial IM Q15MIN PRN BG <70, and no IV access Heparin Sodium (Porcine) 5,000 unit 01/11/24 09:00 01/16/24 08:23 Heparin Sod Inj 5000 Unit/Ml Vial SC 01/25/24 08:59 5,000 unit Q12HR TAL Administration Piperacillin/Tazobactam/Dextrose 50 mls @ 12.5 mls/hr 01/12/24 16:10 01/16/24 05:21 Zosyn IV 01/18/24 21:59 12.5 mls/hr Q8HR TAL Administration Multivitamins/Minerals 10 ml/ 2,010 mls @ 100 mls/hr 01/16/24 09:00 01/16/24 10:07 Amino Acids IV 01/17/24 05:05 100 mls/hr .Q20H6M TAL Administration Protocol Insulin Glargine 10 unit 01/04/24 14:45 01/16/24 08:24 Insulin Glargine (Lantus) 5 Unit/0.05 Ml (Per 5 Units) SC 02/03/24 14:44 10 unit QDAY TAL Administration Insulin Human Lispro 0 unit 01/14/24 07:30 01/16/24 07:43 Insulin Lispro (Admelog) 1 Unit/0.01 Ml Unit SC 02/13/24 07:29 1 unit ACHS TAL Administration Protocol Labetalol HCl 10 mg 01/05/24 19:16 01/13/24 13:24 Labetalol Inj 5 Mg/Ml Vial 20 Ml IVP 02/04/24 19:29 10 mg Q6H PRN Administration SBP >170, DBP>110 Melatonin 3 mg 12/28/23 21:00 01/15/24 20:14 Melatonin 3 Mg Tablet PO 01/27/24 20:59 3 mg HS TAL Administration Morphine Sulfate 4 mg 01/12/24 08:56 01/16/24 05:31 Morphine Sulf Inj 10 Mg/Ml Vial IVP 01/17/24 08:55 4 mg Q4HR PRN Administration PAIN SCALE 7-10 (Severe Protocol Ondansetron HCl 4 mg 12/21/23 23:31 01/15/24 17:12 Ondansetron Inj 2 Mg/Ml Inj 2 Ml IV 01/20/24 23:30 4 mg Q4HR PRN Administration NAUSEA OR VOMITING Pantoprazole Sodium 40 mg 01/01/24 09:00 01/16/24 08:23 Pantoprazole Inj 40 Mg Vial IVP 01/31/24 08:59 40 mg QDAY TAL Administration Protocol Plan 43-year-old male with no significant past medical history who was admitted to the hospital by general surgery on 12/21/2023 for acute perforated appendicitis with multiple postop complications. #Sepsis likely secondary to acute perforated appendicitis #Acute perforated appendicitis #Small bowel perforation s/p ileostomy #Peritonitis #Subcapsular abscess s/p CT-guided drain placement ?Initially patient met SIRS 2 out of 4 with leukocytosis and tachycardia ?Patient underwent multiple surgical procedures including laparoscopic appendectomy on day of admission (12/21/2023), 2 ex laps (12/25/2023 and 01/06/2024), and additional secondary closure of abdomen incision (01/01/2024). ?Multiple blood cultures, urine cultures, sputum cultures, and abdominal wound cultures have come back negative ?Abdomen/pelvis CT on 01/12/2024 showed localized fluid collection on the right lower abdomen consistent with an abscess ?Patient had percutaneous drainage catheter taken out by IR as per general surgeon ?Patient has not been having good oral intake therefore TPN will be continued as per general surgeon DC'd vancomycin (day 9) -WBC 15 and still tachycardic Plan: ?Continue fluconazole (day 16), Zosyn (day 6 on the second treatment) ?Continue TPN at 75/h, will reasses tomorrow ?Wound care ?Will continue advancing diet as tolerated ?Will continue to monitor for any spiking any fever or elevated WBC #Acute hypoxic respiratory failure #Pleural effusion ?Patient was intubated in the ICU and was successfully extubated on 01/12/2024 ?Chest x-ray on 01/12/2024 showed no pneumonia and no right pleural fluid ?Patient had chest tube taken out by general surgeon -Will assess possibility to take chest tube out ?Checks x-ray showed no pleural fluid Plan: ?Pleural fluid cultures pending ?Will discuss possibility to remove chest tube ?Will continue to monitor #Normocytic normochromic anemia ?Hgb 7.8 ?Most likely a component of some blood loss given multiple surgical procedures Plan: ?Will transfuse if hemoglobin less than 7 ?Will continue to monitor #Hypokalemia -Potassium 3.2 today Plan: -40 meq potassium x1 today -Will replete as necessary -Will continue to monitor #ANITHA ?Creatinine 1.3 today Plan: ?Avoid nephrotoxic agents ?Renally dose medications ?Will continue to monitor Thank you for allowing us to be part of the patient's care. Disposition: Patient seen in telemetry Diet: Regular GI prophylaxis: protonix DVT prophylaxis: heparin sc Code: Full code Nutritional: TPN Case disclosed with Attending Dr. Raman and My senior Dr. Carey PGY2. Cortez Harp PGY1 Attending Provider Attestation/Addendum I reviewed labs, imaging, EKG, home medications and prior available records. Face to face evaluation was performed by me. I have personally examined the patient and discussed assessment and plan with the IM team. I reviewed the resident note and agree with the plan with exceptions as below. Please see my addendum in the separate addendum note.
--- NOTE | 2024-01-16 10:43 | PC.NURSE ---
report received from KAROLINA Hall
--- NOTE | 2024-01-16 12:04 | XR_ITS ---
Examination: IR fluoroscopically guided removal right abdomen abscess drainage catheter Fluoroscopy AP abdomen 2 views Exam date and time: January 16, 2024 1201 hours INDICATIONS: No longer needed for abscess drainage catheter right abdomen TECHNIQUE AND FINDINGS: Informed consent provided. Timeout performed. Skin prepped over the entrance site of the abscess drainage catheter anterior abdomen in sterile drape applied hand hygiene 1% lidocaine administered for local anesthesia Utilizing fluoroscopic guidance successful removal of the abscess drainage catheter Estimated blood loss 0 cc Fluoroscopy 0.1 minute radiation dose 0.83 milligray IMPRESSION: Successful IR fluoroscopically guided removal right abdomen abscess drainage catheter Final abdomen film no longer demonstrates the drainage catheter
--- NOTE | 2024-01-16 14:58 | PC.SS ---
Rounding note; Patient is still getting IV ABX.
--- NOTE | 2024-01-16 15:02 | PD.SURPROG ---
Documentation for date of: 01/16/24 Subjective Subjective Brief History: As above Narrative: Patient is feeling well but he could not eat because of lack of appetite. He had 1 episode of vomiting yesterday. His ileostomy is draining liquid stools Exam Vital Signs Temp Pulse Resp BP Pulse Ox O2 Del Method O2 Flow Rate 98.5 F 114 H 14 145/91 H 98 Room Air 6 01/16/24 13:02 01/16/24 13:02 01/16/24 13:02 01/16/24 13:02 01/16/24 13:02 01/16/24 12:40 01/13/24 16:00 FiO2 30 01/12/24 08:43 His vital signs are normal but he still tachycardic with a rate around 114 Routine Chest/Breast/Axilla Exam Comments: Chest tube has very minimal drainage. Routine Abdominal Exam Comments: The abdominal examination is unremarkable. The radiologist pulled out the drainage catheter today Results Results: Laboratory Laboratory Narrative: Laboratory results show slightly increased WBC to 15,000 Assessment & Plan Assessment Additional comments: Impression: Stable postop Still has tachycardia No fluid in the chest Plan Plan: We shall pull the chest tube out. If the patient is eating well we shall DC the TPN
[2024-01-16] MEDS: POTASSIUM ACET IV (15:08)
[2024-01-16] MEDS: SODIUM CHLORIDE 0.9% IV (15:08)
--- NOTE | 2024-01-16 16:08 | PC.SS ---
SS was informed by Wound Care Nurse Charlotte that patient will need a Wound Vac once he discharges. Patient will discharge home with HH when he is medically cleared.
--- NOTE | 2024-01-16 16:19 | PC.WOUND ---
Discharge plan currently home with home health, will need wound vac on discharge. Stated [facility] home rental process, faxed required documents with return receipt. Will follow up on Friday 01/19 on my return [facility] contact information Phone Fax POLK [phone]
[2024-01-16] MEDS: MELATONIN 3 MG TABLET PO (21:05)
[2024-01-17] VITALS (9 sets, daily range): BP systolic 118–141; BP diastolic 85–97; PULSE 87–122; RESP 17–24; TEMP 36.3–37.7; O2SAT 95–98; BMI 29.8
[2024-01-17] MEDS: TPN-OUTSOURCED 1.5L - 2.49L 2,000 ML 75 ML IV (05:36)
[2024-01-17] MEDS: PIPER/TAZO 3.375 GM 50 ML IV ×3 (05:36→21:24)
[2024-01-17 06:01] LABS: Basophils # (Auto) 0.1 Thou/mm3 (0.0-0.2); Basophils % (Auto) 1 % (0-2.5); Eosinophils # (Auto) 0.3 Thou/mm3 (0.0-0.5); Eosinophils % (Auto) 2 % (0-10); Hematocrit 22.6 % (41.0-53.0); Immature Granulocytes % (Auto) 1 % (0-0); Immature Granulocytes Auto 0.26 Thou/mm3 (0.00-0.00); Lymphocytes # (Auto) 1.9 Thou/mm3 (1.0-4.8); Lymphocytes % (Auto) 10 % (10-50); Mean Corpuscular HGB Conc 33.6 g/dl (31.0-37.0); Mean Corpuscular Hemoglobin 28.5 pg (25.0-35.0); Mean Corpuscular Volume 85 fL (80-100); Monocytes % (Auto) 11 % (0-12); Neutrophils % (Auto) 75 % (37-80); Nucleated Red Blood Cell % 0 /100 WBC (0); Platelet Count 380 Thou/mm3 (140-440); RDW Standard Deviation 42.5 fL (35.1-43.9); Red Blood Count 2.67 Miln/mm3 (4.50-5.90); White Blood Count 18.5 Thou/mm3 (3.8-10.6)
[2024-01-17 06:03] LABS: Hemoglobin 7.6 g/dL (13.5-16.0)
[2024-01-17 06:37] LABS: Alanine Aminotransferase 29 U/L (10-49); Albumin, Serum 3.4 gm/dL (3.5-5.0); Albumin/Globulin Ratio 0.9 (1.2-2.2); Alkaline Phosphatase 176 U/L (46-116); Anion Gap 8 (7-16); Aspartate Amino Transferase 26 U/L (0-34); BUN/Creatinine Ratio 25 Ratio (12-20); Bilirubin,Total 0.3 mg/dL (0.3-1.2); Blood Urea Nitrogen 35 mg/dL (9-23); Calcium 8.2 mg/dL (8.3-10.6); Calcium (Corrected) 8.7 mg/dL (8.5-10.1); Carbon Dioxide 21.9 mMol/L (20.0-31.0); Chloride 103 mMol/L (98-107); Creatinine (Component) 1.4 mg/dL (0.6-1.3); Estimated Creatinine Clearance 64.7 mL/min (>60); Globulin 3.7 gm/dL (2.3-3.5); Glucose 152 mg/dL (74-106); Magnesium 1.7 mg/dL (1.6-2.6); Osmolality,Calculated 277 (275-295); Phosphorous 2.8 mg/dL (2.4-5.1); Potassium 3.6 mMol/L (3.4-5.1); Sodium 133 mMol/L (136-145); Total Protein 7.1 gm/dL (5.7-8.2); eGFR > 60 See Note
[2024-01-17] MEDS: amLODIPine BESYLATE 5 MG TABLET 10 MG PO (08:01)
[2024-01-17] MEDS: HEPARIN SOD INJ 5000 UNIT/ML VIAL SC ×2 (08:02→21:24)
[2024-01-17] MEDS: PANTOPRAZOLE INJ 40 MG VIAL IVP (08:02)
[2024-01-17] MEDS: INSULIN GLARGINE (Lantus) 5 UNIT/0.05 ML (PER 5 UNITS) 10 UNIT SC (08:02)
[2024-01-17] MEDS: INSULIN LISPRO (AdmeLOG) 1 UNIT/0.01 ML UNIT SC ×4 (08:03→21:23)
--- NOTE | 2024-01-17 09:04 | ESPR_ITS ---
<Statement entered by Cr Carey MD - 01/17/24 15:33> Senior Resident Attestation: I supervised/discussed management plan with internet project manager physician Dr. Goncalves, and was involved in the care of this patient. I personally saw and examined the patient and discussed the assessment and plan with the entire medicine team, including my attending. I agree with the assessment and plan as documented. Patient's care was discussed with attending physician, Dr. Arora. Cr Carey MD PGY-2. Documentation for date of: 01/17/24 Subjective Subjective Interval history: Patient seen at bedside this morning. No overnight events. Patient states that he has still not passed flatulence and his left upper quadrant pain is still present and is 6 out of 10. Patient still having very poor oral intake yesterday he drank 2 supplemental protein shakes, but that was what he mostly ate as he did not eat most of his solid food. Patient still tachycardic, but no spikes in fever. Spoke with surgeon Dr. Rubio today who states that he would like a CT abdomen/pelvis for tomorrow to see if there is any fluid collection. He also mentioned that he wants to discontinue the TPN tomorrow as he thinks that the leukocytosis can be due to IV lines. No other complaints at this time. Exam Vital Signs Temp Pulse Resp BP Pulse Ox O2 Del Method O2 Flow Rate 98.0 F 89 24 H 128/89 H 95 Room Air 6 01/17/24 08:00 01/17/24 08:01 01/17/24 08:00 01/17/24 08:01 01/17/24 08:00 01/17/24 08:00 01/13/24 16:00 FiO2 30 01/12/24 08:43 Narrative Exam General: A/O x3, no acute distress, resting in bed Eyes: PERRL, EOMI. Anicteric, vision grossly intact. Ears: No ear pain, no ear discharge, Hearing grossly intact. Nose: No nasal discharge. Mouth/Throat: Dry mucous membranes, no redness, no lesions. Neck: Neck supple, non-tender, no cervical lymphadenopathy. Lungs: Clear KYA to auscultation and percussion, No accessory muscle use. Cardio: Normal S1/S2, regular rhythm, no murmurs, no JVD Abdomen: Soft, Wound VAC in place with clean margins and healthy granulation tissue, tenderness in LUQ, no palpable masses, peristalsis present, no guarding or rebound. Extremities: Symmetrical, no significant deformities, no peripheral edema , non-tender, peripheral pulses presents. Skin: No rashes, no lesions, warm to touch. Neuro: No focal neurological deficits. motor and sensory intact Psych: Cooperative, appropriate mood and effect. Objective Labs 01/17/24 05:23 01/17/24 05:23 Labs: Laboratory Results - last 24 hr 01/16/24 01/17/24 04:47 05:23 WBC 18.5 H RBC 2.67 L Hgb 7.6 L Hct 22.6 L MCV 85 MCH 28.5 MCHC 33.6 RDW Std Deviation 42.5 Plt Count 380 D Neut % (Auto) 75 Lymph % (Auto) 10 [place] % (Auto) 11 Eos % (Auto) 2 Baso % (Auto) 1 Neut # (Auto) 14.0 H Lymph # (Auto) 1.9 [place] # (Auto) 2.0 H Eos # (Auto) 0.3 Baso # (Auto) 0.1 Immature Gran # (Auto) 0.26 H Absolute Nucleated RBC 0.00 Immature Gran % 1 H Nucleated RBC % 0 PT 11.4 INR 1.0 APTT 21.3 L D Sodium 133 L Potassium 3.6 Chloride 103 Carbon Dioxide 21.9 Anion Gap 8 BUN 35 H Creatinine 1.4 H Estim Creat Clear Calc 64.7 eGFR > 60 BUN/Creatinine Ratio 25 H Glucose 152 H Calculated Osmolality 277 Calcium 8.2 L Corrected Calcium 8.7 Phosphorus 2.8 Magnesium 1.7 Total Bilirubin 0.3 AST 26 ALT 29 Alkaline Phosphatase 176 H Total Protein 7.1 Albumin 3.4 L Globulin 3.7 H Albumin/Globulin Ratio 0.9 L ABG Interpretation ABG results: 12/21/23 12/24/23 12/25/23 15:50 19:45 02:34 ABG pH 7.40 7.23 L D ABG pCO2 40 56 H D ABG pO2 134 H 229 H D ABG HCO3 25 24 ABG O2 Saturation 99 H 100 H ABG Base Excess 0 -5 L VBG pH 7.48 VBG pCO2 35 L VBG pO2 56 VBG Base Excess 2 12/25/23 12/25/23 12/26/23 04:54 10:48 06:56 ABG pH 7.25 L 7.33 L 7.34 L ABG pCO2 52 H 45 43 ABG pO2 93 D 99 95 ABG HCO3 23 23 23 ABG O2 Saturation 97 98 98 ABG Base Excess -5 L -3 -2 VBG pH VBG pCO2 VBG pO2 VBG Base Excess 12/26/23 01/05/24 01/06/24 10:15 08:13 13:50 ABG pH 7.36 7.37 7.42 ABG pCO2 41 38 30 L ABG pO2 87 75 L 90 ABG HCO3 23 22 19 L ABG O2 Saturation 98 96 98 ABG Base Excess -2 -3 -5 L VBG pH VBG pCO2 VBG pO2 VBG Base Excess 01/06/24 01/07/24 01/07/24 21:44 00:30 04:35 ABG pH 7.12 L* D 7.22 L D 7.27 L ABG pCO2 69 H D 52 H D 45 ABG pO2 261 H D 161 H D 209 H D ABG HCO3 22 21 21 ABG O2 Saturation 100 H 99 H 100 H ABG Base Excess -7 L -6 L -6 L VBG pH VBG pCO2 VBG pO2 VBG Base Excess 01/08/24 01/09/24 01/09/24 04:50 04:14 15:49 ABG pH 7.24 L 7.26 L 7.27 L ABG pCO2 47 50 H 51 H ABG pO2 97 D 97 90 ABG HCO3 20 22 23 ABG O2 Saturation 98 98 97 ABG Base Excess -7 L -5 L -4 L VBG pH VBG pCO2 VBG pO2 VBG Base Excess 01/10/24 01/11/24 01/12/24 04:52 04:35 05:24 ABG pH 7.33 L 7.34 L 7.31 L ABG pCO2 43 43 49 H ABG pO2 101 99 106 ABG HCO3 23 23 25 ABG O2 Saturation 98 98 98 ABG Base Excess -3 -3 -2 VBG pH VBG pCO2 VBG pO2 VBG Base Excess Quality Measures Quality Measures VTE prophylaxis Assessment & Plan Assessment Current Active Medications: Generic Name Dose Route Start Last Admin Trade Name Freq PRN Reason Stop Dose Admin Acetaminophen 650 mg 12/31/23 13:25 01/15/24 09:48 Acetaminophen 325 Mg Tablet PO 01/20/24 23:30 650 mg Q6HR PRN Administration Pain (1-3) and FEVER>100.3 Amlodipine Besylate 10 mg 01/13/24 12:30 01/17/24 08:01 Amlodipine Besylate 5 Mg Tablet PO 02/12/24 12:29 10 mg QDAY TAL Administration Dextrose 25 ml 01/04/24 14:37 Dextrose 50%-Water Inj 50 Ml Syringe IV 02/03/24 14:36 Q15MIN PRN BG 50-70 responsive npo pt Dextrose 50 ml 01/04/24 14:37 Dextrose 50%-Water Inj 50 Ml Syringe IV 02/03/24 14:36 Q15MIN PRN BG <50 OR BG <70 & pt unresponsive Glucagon 1 mg 01/07/24 11:34 Glucagon Inj 1 Mg Vial IM Q15MIN PRN BG <70, and no IV access Heparin Sodium (Porcine) 5,000 unit 01/11/24 09:00 01/17/24 08:02 Heparin Sod Inj 5000 Unit/Ml Vial SC 01/25/24 08:59 5,000 unit Q12HR TAL Administration Piperacillin/Tazobactam/Dextrose 50 mls @ 12.5 mls/hr 01/12/24 16:10 01/17/24 05:36 Zosyn IV 01/18/24 21:59 12.5 mls/hr Q8HR TAL Administration Amino Acids 2,000 mls @ 75 mls/hr 01/17/24 05:06 01/17/24 05:36 Tpn-Outsourced IV 01/18/24 05:05 75 mls/hr .Q24H TAL Administration Protocol Insulin Glargine 10 unit 01/04/24 14:45 01/17/24 08:02 Insulin Glargine (Lantus) 5 Unit/0.05 Ml (Per 5 Units) SC 02/03/24 14:44 10 unit QDAY TAL Administration Insulin Human Lispro 0 unit 01/14/24 07:30 01/17/24 08:03 Insulin Lispro (Admelog) 1 Unit/0.01 Ml Unit SC 02/13/24 07:29 1 unit ACHS TAL Administration Protocol Labetalol HCl 10 mg 01/05/24 19:16 01/13/24 13:24 Labetalol Inj 5 Mg/Ml Vial 20 Ml IVP 02/04/24 19:29 10 mg Q6H PRN Administration SBP >170, DBP>110 Melatonin 3 mg 12/28/23 21:00 01/16/24 21:05 Melatonin 3 Mg Tablet PO 01/27/24 20:59 3 mg HS TAL Administration Ondansetron HCl 4 mg 12/21/23 23:31 01/15/24 17:12 Ondansetron Inj 2 Mg/Ml Inj 2 Ml IV 01/20/24 23:30 4 mg Q4HR PRN Administration NAUSEA OR VOMITING Pantoprazole Sodium 40 mg 01/01/24 09:00 01/17/24 08:02 Pantoprazole Inj 40 Mg Vial IVP 01/31/24 08:59 40 mg QDAY TAL Administration Protocol Plan 43-year-old male with no significant past medical history who was admitted to the hospital by general surgery on 12/21/2023 for acute perforated appendicitis with multiple postop complications. #Sepsis likely secondary to acute perforated appendicitis #Acute perforated appendicitis #Small bowel perforation s/p ileostomy #Peritonitis #Subcapsular abscess s/p CT-guided drain placement ?Initially patient met SIRS 2 out of 4 with leukocytosis and tachycardia ?Patient underwent multiple surgical procedures including laparoscopic appendectomy on day of admission (12/21/2023), 2 ex laps (12/25/2023 and 01/06/2024), and additional secondary closure of abdomen incision (01/01/2024). ?Multiple blood cultures, urine cultures, sputum cultures, and abdominal wound cultures have come back negative ?Abdomen/pelvis CT on 01/12/2024 showed localized fluid collection on the right lower abdomen consistent with an abscess ?Patient had percutaneous drainage catheter taken out by IR as per general surgeon ?Patient has not been having good oral intake therefore TPN will be continued as per general surgeon -DC'd vancomycin (day 9) -WBC 18.5 and still tachycardic Plan: ?Continue Zosyn (day 7 on the second treatment) ?Continue TPN at 75/h as patient still not having good oral intake. -1L bolus x1 -CT abd/pelvis ordered for tomorrow ?Wound care ?Will continue advancing diet as tolerated -Discontinue TPN tomorrow ?Will continue to monitor for any spiking any fever or elevated WBC #Acute hypoxic respiratory failure #Pleural effusion ?Patient was intubated in the ICU and was successfully extubated on 01/12/2024 ?Chest x-ray on 01/12/2024 showed no pneumonia and no right pleural fluid ?Patient had chest tube taken out by general surgeon -Will assess possibility to take chest tube out ?Checks x-ray showed no pleural fluid Plan: ?Will continue to monitor #Normocytic normochromic anemia ?Hgb 7.6 ?Most likely a component of some blood loss given multiple surgical procedures Plan: ?Will transfuse if hemoglobin less than 7 ?Will continue to monitor #Hypokalemia -Potassium 3.6 today Plan: -Will replete as necessary -Will continue to monitor #ANITHA ?Creatinine 1.4 today Plan: ?Avoid nephrotoxic agents ?Renally dose medications -1L bolus x 1 ?Will continue to monitor Thank you for allowing us to be part of the patient's care. Disposition: Patient seen in telemetry Diet: Regular GI prophylaxis: protonix DVT prophylaxis: heparin sc Code: Full code Nutritional: TPN Case disclosed with Attending Dr. Arora and My senior Dr. Carey PGY2. Cortez Harp PGY1 Attending Provider Attestation/Addendum Patient was seen and examined. He is alert and oriented. He does not have good appetite. He has early satiety no abdominal distention. Patient is tachycardic. White count 18,000 Patient will have repeat CT scan of the abdomen tomorrow as per Dr. Rubio's orders. He has no mental status change. He has good urine output. Continue current medications and treatment. The patient is still on Zosyn. He is on TPN. Discussed with housestaff
[2024-01-17] MEDS: SODIUM CHLORIDE 0.9% 1000 ML 1,000 ML 250 ML IV (11:00)
[2024-01-17] MEDS: Magnesium Sulfate 2 GM Ivpb 50 ML IV (12:32)
[2024-01-17] MEDS: MELATONIN 3 MG TABLET PO (21:24)
[2024-01-18] VITALS (9 sets, daily range): BP systolic 132–151; BP diastolic 80–90; PULSE 98–117; RESP 15–29; TEMP 36.6–37.1; O2SAT 95–99; BMI 29.8
[2024-01-18 04:59] LABS: Basophils # (Auto) 0.1 Thou/mm3 (0.0-0.2); Basophils % (Auto) 1 % (0-2.5); Eosinophils # (Auto) 0.4 Thou/mm3 (0.0-0.5); Eosinophils % (Auto) 2 % (0-10); Hematocrit 22.9 % (41.0-53.0); Immature Granulocytes % (Auto) 2 % (0-0); Immature Granulocytes Auto 0.28 Thou/mm3 (0.00-0.00); Lymphocytes # (Auto) 2.1 Thou/mm3 (1.0-4.8); Lymphocytes % (Auto) 12 % (10-50); Mean Corpuscular HGB Conc 33.2 g/dl (31.0-37.0); Mean Corpuscular Hemoglobin 27.8 pg (25.0-35.0); Mean Corpuscular Volume 84 fL (80-100); Monocytes # (Auto) 1.8 Thou/mm3 (0.0-0.8); Monocytes % (Auto) 10 % (0-12); Neutrophils # (Auto) 13.1 Thou/mm3 (1.8-7.7); Neutrophils % (Auto) 74 % (37-80); Nucleated Red Blood Cell % 0 /100 WBC (0); Platelet Count 362 Thou/mm3 (140-440); RDW Standard Deviation 42.2 fL (35.1-43.9); Red Blood Count 2.73 Miln/mm3 (4.50-5.90); White Blood Count 17.8 Thou/mm3 (3.8-10.6)
[2024-01-18 05:03] LABS: Hemoglobin 7.6 g/dL (13.5-16.0)
[2024-01-18 05:11] LABS: Alanine Aminotransferase 30 U/L (10-49); Albumin, Serum 3.5 gm/dL (3.5-5.0); Albumin/Globulin Ratio 0.9 (1.2-2.2); Alkaline Phosphatase 175 U/L (46-116); Anion Gap 7 (7-16); Aspartate Amino Transferase 29 U/L (0-34); BUN/Creatinine Ratio 25 Ratio (12-20); Bilirubin,Total 0.3 mg/dL (0.3-1.2); Blood Urea Nitrogen 35 mg/dL (9-23); Calcium 8.2 mg/dL (8.3-10.6); Calcium (Corrected) 8.6 mg/dL (8.5-10.1); Chloride 104 mMol/L (98-107); Creatinine (Component) 1.4 mg/dL (0.6-1.3); Estimated Creatinine Clearance 64.7 mL/min (>60); Globulin 3.9 gm/dL (2.3-3.5); Glucose 159 mg/dL (74-106); Magnesium 1.8 mg/dL (1.6-2.6); Osmolality,Calculated 277 (275-295); Sodium 133 mMol/L (136-145); Total Protein 7.4 gm/dL (5.7-8.2); eGFR > 60 See Note
[2024-01-18] MEDS: PIPER/TAZO 3.375 GM 50 ML IV ×2 (05:14→15:14)
[2024-01-18] MEDS: TPN-OUTSOURCED 1.5L - 2.49L 2,000 ML 75 ML IV (05:15)
--- NOTE | 2024-01-18 07:00 | XR_ITS ---
Examination: CT abdomen and pelvis without contrast. Coronal 3-D reconstructions. Sagittal 2-D reconstructions. Date and time of exam:January 18, 2024 at 1227 hrs. Indications: Right lower abdominal pain today CTDI: vol (mGy): 10.6 DLP: (mGycm): 628 Technique: Axial images of the abdomen have been obtained, 3 mm slice thickness Intravenous contrast material has not been administered. Low dose protocols were performed. One or more of the following dose reduction techniques were used; automated exposure control, adjustment of the mA and/or KV according to patient size, use of iterative reconstruction technique. Findings: Mild pneumonia both bases with small pleural effusions Trace pericardial thickening Small right subphrenic abscess, 13 mm in thickness external and above the right lobe the liver This abscess extends below the liver the portion of the abscess below the liver measures 8.4 x 11.5 x 3.8 cm No focal liver or splenic lesion No hydronephrosis Mild free fluid in the abdomen Large anterior abdominal wall surgical defect Right ileostomy No bowel obstruction Bladder intact Impression: Right subphrenic abscess which is very small in thickness, 13 mm, above and external to the lateral margin of the liver However the portion of the abscess below the liver measures 8.4 x 11.5 x 3.8 cm on the current study
[2024-01-18] MEDS: HEPARIN SOD INJ 5000 UNIT/ML VIAL SC ×2 (08:28→20:56)
[2024-01-18] MEDS: amLODIPine BESYLATE 5 MG TABLET 10 MG PO (08:28)
[2024-01-18] MEDS: PANTOPRAZOLE INJ 40 MG VIAL IVP (08:28)
[2024-01-18] MEDS: INSULIN LISPRO (AdmeLOG) 1 UNIT/0.01 ML UNIT SC ×4 (08:29→20:57)
[2024-01-18] MEDS: INSULIN GLARGINE (Lantus) 5 UNIT/0.05 ML (PER 5 UNITS) 10 UNIT SC (08:29)
[2024-01-18] MEDS: SODIUM CHLORIDE 0.9% 500 ML 500 ML 999 ML IV (09:00)
[2024-01-18] MEDS: CALCIUM GLUC/NS 1000MG IVPB 1,000 MG/50 ML BAG 50 MG IV (10:46)
[2024-01-18] MEDS: LORazepam 0.5 MG TABLET PO (10:56)
--- NOTE | 2024-01-18 14:22 | ESPR_ITS ---
Documentation for date of: 01/18/24 Subjective Subjective Interval history: 01/17: No overnight events, patient is seen and examined at bedside. Patient denies passing fluctuance and he continues to have abdominal pain. Patient states that he is having increasing anxiety, he received lorazepam 0.5 x 1 early afternoon. Patient states that he is unable to sleep at night because of pain and mild anxiety. Patient is still having poor oral intake, he will drink 1/2 protein shake, and drink a little bit of soup that his brought from home. Patient did not eat his breakfast. Patient continues to be tachycardic with heart rate 107. Patient denies nausea or vomiting. Exam Vital Signs Temp Pulse Resp BP Pulse Ox O2 Del Method O2 Flow Rate 98.3 F 105 H 25 H 135/83 H 97 Room Air 6 01/18/24 11:52 01/18/24 12:00 01/18/24 11:52 01/18/24 11:52 01/18/24 11:52 01/18/24 11:52 01/13/24 16:00 FiO2 30 01/12/24 08:43 Narrative Exam GENERAL: A&Ox3 . Awake, Not in acute distress, jorge a tachycardic NEURO: nutrition aide grossly intact, moves extremities x4 HEENT: Atraumatic, Normocephalic. mucous membranes moist. Eyes open, symmetrical, & clear HEART: Normal Heart Sounds LUNGS: Clear to auscultation ABDOMEN: Wound VAC in place with clean margins and healthy granulation tissue SKIN: No Rash or ecchymoses EXTREMITIES: No edema, tenderness, able to move all 4 extremities, pedal pulses palpated Objective Labs 01/19/24 07:49 01/19/24 05:47 Labs: Laboratory Results - last 24 hr 01/18/24 04:20 WBC 17.8 H RBC 2.73 L Hgb 7.6 L Hct 22.9 L MCV 84 MCH 27.8 MCHC 33.2 RDW Std Deviation 42.2 Plt Count 362 Neut % (Auto) 74 Lymph % (Auto) 12 [place] % (Auto) 10 Eos % (Auto) 2 Baso % (Auto) 1 Neut # (Auto) 13.1 H Lymph # (Auto) 2.1 [place] # (Auto) 1.8 H Eos # (Auto) 0.4 Baso # (Auto) 0.1 Immature Gran # (Auto) 0.28 H Absolute Nucleated RBC 0.00 Immature Gran % 2 H Nucleated RBC % 0 Sodium 133 L Potassium 4.0 Chloride 104 Carbon Dioxide 22.0 Anion Gap 7 BUN 35 H Creatinine 1.4 H Estim Creat Clear Calc 64.7 eGFR > 60 BUN/Creatinine Ratio 25 H Glucose 159 H Calculated Osmolality 277 Calcium 8.2 L Corrected Calcium 8.6 Phosphorus 3.0 Magnesium 1.8 Total Bilirubin 0.3 AST 29 ALT 30 Alkaline Phosphatase 175 H Total Protein 7.4 Albumin 3.5 Globulin 3.9 H Albumin/Globulin Ratio 0.9 L ABG Interpretation ABG results: 12/21/23 12/24/23 12/25/23 15:50 19:45 02:34 ABG pH 7.40 7.23 L D ABG pCO2 40 56 H D ABG pO2 134 H 229 H D ABG HCO3 25 24 ABG O2 Saturation 99 H 100 H ABG Base Excess 0 -5 L VBG pH 7.48 VBG pCO2 35 L VBG pO2 56 VBG Base Excess 2 12/25/23 12/25/23 12/26/23 04:54 10:48 06:56 ABG pH 7.25 L 7.33 L 7.34 L ABG pCO2 52 H 45 43 ABG pO2 93 D 99 95 ABG HCO3 23 23 23 ABG O2 Saturation 97 98 98 ABG Base Excess -5 L -3 -2 VBG pH VBG pCO2 VBG pO2 VBG Base Excess 12/26/23 01/05/24 01/06/24 10:15 08:13 13:50 ABG pH 7.36 7.37 7.42 ABG pCO2 41 38 30 L ABG pO2 87 75 L 90 ABG HCO3 23 22 19 L ABG O2 Saturation 98 96 98 ABG Base Excess -2 -3 -5 L VBG pH VBG pCO2 VBG pO2 VBG Base Excess 01/06/24 01/07/24 01/07/24 21:44 00:30 04:35 ABG pH 7.12 L* D 7.22 L D 7.27 L ABG pCO2 69 H D 52 H D 45 ABG pO2 261 H D 161 H D 209 H D ABG HCO3 22 21 21 ABG O2 Saturation 100 H 99 H 100 H ABG Base Excess -7 L -6 L -6 L VBG pH VBG pCO2 VBG pO2 VBG Base Excess 01/08/24 01/09/24 01/09/24 04:50 04:14 15:49 ABG pH 7.24 L 7.26 L 7.27 L ABG pCO2 47 50 H 51 H ABG pO2 97 D 97 90 ABG HCO3 20 22 23 ABG O2 Saturation 98 98 97 ABG Base Excess -7 L -5 L -4 L VBG pH VBG pCO2 VBG pO2 VBG Base Excess 01/10/24 01/11/24 01/12/24 04:52 04:35 05:24 ABG pH 7.33 L 7.34 L 7.31 L ABG pCO2 43 43 49 H ABG pO2 101 99 106 ABG HCO3 23 23 25 ABG O2 Saturation 98 98 98 ABG Base Excess -3 -3 -2 VBG pH VBG pCO2 VBG pO2 VBG Base Excess Quality Measures Quality Measures VTE prophylaxis Assessment & Plan Assessment Current Active Medications: Generic Name Dose Route Start Last Admin Trade Name Freq PRN Reason Stop Dose Admin Acetaminophen 650 mg 12/31/23 13:25 01/15/24 09:48 Acetaminophen 325 Mg Tablet PO 01/20/24 23:30 650 mg Q6HR PRN Administration Pain (1-3) and FEVER>100.3 Amlodipine Besylate 10 mg 01/13/24 12:30 01/18/24 08:28 Amlodipine Besylate 5 Mg Tablet PO 02/12/24 12:29 10 mg QDAY TAL Administration Dextrose 25 ml 01/04/24 14:37 Dextrose 50%-Water Inj 50 Ml Syringe IV 02/03/24 14:36 Q15MIN PRN BG 50-70 responsive npo pt Dextrose 50 ml 01/04/24 14:37 Dextrose 50%-Water Inj 50 Ml Syringe IV 02/03/24 14:36 Q15MIN PRN BG <50 OR BG <70 & pt unresponsive Glucagon 1 mg 01/07/24 11:34 Glucagon Inj 1 Mg Vial IM Q15MIN PRN BG <70, and no IV access Heparin Sodium (Porcine) 5,000 unit 01/11/24 09:00 01/18/24 08:28 Heparin Sod Inj 5000 Unit/Ml Vial SC 01/25/24 08:59 5,000 unit Q12HR TAL Administration Piperacillin/Tazobactam/Dextrose 50 mls @ 12.5 mls/hr 01/12/24 16:10 01/18/24 05:14 Zosyn IV 01/18/24 21:59 12.5 mls/hr Q8HR TAL Administration Amino Acids 2,000 mls @ 75 mls/hr 01/18/24 05:38 01/18/24 05:15 Tpn-Outsourced IV 01/19/24 05:37 75 mls/hr .Q24H TAL Administration Protocol Amino Acids 2,000 mls @ 75 mls/hr 01/19/24 05:16 Tpn-Outsourced IV 01/20/24 05:15 .Q24H TAL Protocol Insulin Glargine 10 unit 01/04/24 14:45 01/18/24 08:29 Insulin Glargine (Lantus) 5 Unit/0.05 Ml (Per 5 Units) SC 02/03/24 14:44 10 unit QDAY TAL Administration Insulin Human Lispro 0 unit 01/14/24 07:30 01/18/24 10:56 Insulin Lispro (Admelog) 1 Unit/0.01 Ml Unit SC 02/13/24 07:29 1 unit ACHS TAL Administration Protocol Ketorolac Tromethamine 30 mg 01/18/24 12:50 Ketorolac Inj 30 Mg/Ml Vial IVP 01/23/24 12:49 Q6HR PRN PAIN SCALE 4-10(Mod-Sev Labetalol HCl 10 mg 01/05/24 19:16 01/13/24 13:24 Labetalol Inj 5 Mg/Ml Vial 20 Ml IVP 02/04/24 19:29 10 mg Q6H PRN Administration SBP >170, DBP>110 Melatonin 3 mg 12/28/23 21:00 01/17/24 21:24 Melatonin 3 Mg Tablet PO 01/27/24 20:59 3 mg HS TAL Administration Ondansetron HCl 4 mg 12/21/23 23:31 01/15/24 17:12 Ondansetron Inj 2 Mg/Ml Inj 2 Ml IV 01/20/24 23:30 4 mg Q4HR PRN Administration NAUSEA OR VOMITING Pantoprazole Sodium 40 mg 01/01/24 09:00 01/18/24 08:28 Pantoprazole Inj 40 Mg Vial IVP 01/31/24 08:59 40 mg QDAY TAL Administration Protocol Plan 43-year-old male with no significant past medical history who was admitted to the hospital by general surgery on 12/21/2023 for acute perforated appendicitis with multiple postop complications. #Sepsis likely secondary to acute perforated appendicitis #Acute perforated appendicitis #Small bowel perforation s/p ileostomy #Peritonitis #Subcapsular abscess s/p CT-guided drain placement ?Initially patient met SIRS 2 out of 4 with leukocytosis and tachycardia ?Patient underwent multiple surgical procedures including laparoscopic appendectomy on day of admission (12/21/2023), 2 ex laps (12/25/2023 and 01/06/2024), and additional secondary closure of abdomen incision (01/01/2024). ?Multiple blood cultures, urine cultures, sputum cultures, and abdominal wound cultures have come back negative ?Abdomen/pelvis CT on 01/12/2024 showed localized fluid collection on the right lower abdomen consistent with an abscess ?Patient had percutaneous drainage catheter taken out by IR as per general surgeon ?Patient has not been having good oral intake therefore TPN will be continued as per general surgeon -DC'd vancomycin (day 9) -WBC 17.5 and still tachycardic Plan: ?Continue Zosyn (day 7 on the second treatment) ?Continue TPN at 75/h as patient still not having good oral intake. -1L bolus x1 -CT abd/pelvis- Right subphrenic abscess which is very small in thickness, 13 mm, above and external to the lateral margin of the liver - possibly drain by IR on friday. ?Wound care ?Will continue advancing diet as tolerated -consider Discontinue TPN ?Will continue to monitor for any spiking any fever or elevated WBC -Toradol 15mg IVP ordered - monitor for declining renal function #Acute hypoxic respiratory failure #Pleural effusion ?Patient was intubated in the ICU and was successfully extubated on 01/12/2024 ?Chest x-ray on 01/12/2024 showed no pneumonia and no right pleural fluid ?Patient had chest tube taken out by general surgeon -Will assess possibility to take chest tube out ?Checks x-ray showed no pleural fluid Plan: ?Will continue to monitor #Normocytic normochromic anemia ?Hgb 7.6 ?Most likely a component of some blood loss given multiple surgical procedures Plan: ?Will transfuse if hemoglobin less than 7 ?Will continue to monitor #Hypokalemia -Potassium 3.6 today Plan: -Will replete as necessary -Will continue to monitor #ANITHA ?Creatinine 1.4 today Plan: ?Avoid nephrotoxic agents ?Renally dose medications -1L bolus x 1 ?Will continue to monitor Disposition: Patient seen in telemetry Diet: Regular GI prophylaxis: protonix DVT prophylaxis: heparin sc Code: Full code Nutritional: TPN Assessment and plan discussed with my senior resident Dr. Harvey & attending physician Dr. Danisha Kwon (PGY-1)- Internal medicine resident Attending Provider Attestation/Addendum I reviewed labs, imaging, EKG, home medications and prior available records. Face to face evaluation was performed by me. I have personally examined the patient and discussed assessment and plan with the IM team. I reviewed the resident note and agree with the plan with exceptions as below. Sepsis secondary to acute appendicitis: Status post appendectomy. Complicated by small bowel perforation and pelvic abscess, peritonitis status post ex lap. Status post [address] with wound VAC. The drains were removed however WBC was uptrending. Ordered CT abdomen/pelvis that showed large abscess versus fluid collection below the liver. Consulted IR for drainage. Discussed with general surgery: Broadened antibiotics to meropenem. ID is following. Trend WBC. Poor oral intake: In the setting of multiple abdominal surgeries/drains, active abdominal infection and prolonged hospitalization. He is still not meeting his nutritional requirements. Continue TPN. Continue diet supplements as tolerated. Right-sided pleural fluid: Status post chest tube insertion: Ordered repeat x- ray that showed resolution of the pleural effusion. Removed the chest tube.
[2024-01-18] MEDS: KETOROLAC INJ 30 MG/ML VIAL 15 MG IVP ×2 (15:19→21:00)
--- NOTE | 2024-01-18 15:40 | PD.SURPROG ---
Documentation for date of: 01/18/24 Subjective Subjective Brief History: As above Narrative: The patient is essentially unchanged. He still not able to eat because of lack of appetite. He is complaining of pain over the left side of the abdomen. Exam Vital Signs Temp Pulse Resp BP Pulse Ox O2 Del Method O2 Flow Rate 98.3 F 105 H 25 H 135/83 H 97 Room Air 6 01/18/24 11:52 01/18/24 12:00 01/18/24 11:52 01/18/24 11:52 01/18/24 11:52 01/18/24 11:52 01/13/24 16:00 FiO2 30 01/12/24 08:43 His vital signs are normal other than tachycardia about 100 most of the time Routine Abdominal Exam Comments: Abdominal examination shows tenderness over the left upper quadrant and flank. Results Results: Laboratory Laboratory Narrative: Laboratory results show the WBC around 17,000 Results: Imaging Imaging narrative: We repeated the CT scan to see any other cause for the leukocytosis. There seems to be some collection of fluid below the liver this may or may not be abscess Assessment & Plan Assessment Additional comments: Impression: Persistent leukocytosis Collection of fluid below the liver. Plan Plan: We shall change his Zosyn to different antibiotics because he has had it for 4 weeks and most likely will develop resistance even though the cultures have shown no definite organism. We shall try meropenem and ask radiologist if he could drain the fluid from the right flank below the liver. We will keep the TPN going daily he eats and will not make any change now. Procedures Procedures Exploratory laparotomy and drainage of the subcutaneous infection and wound VAC application
[2024-01-18] MEDS: MELATONIN 3 MG TABLET PO (20:55)
[2024-01-18] MEDS: MEROPENEM INJ 1,000 MG in SODIUM CHLORIDE 0.9% (P) 50 ML 100 MG IV (21:02)
[2024-01-19] VITALS (7 sets, daily range): BP systolic 126–142; BP diastolic 80–92; PULSE 90–124; RESP 13–28; TEMP 36.7–37.5; O2SAT 97–98; BMI 29.7
[2024-01-19] MEDS: TPN-OUTSOURCED 1.5L - 2.49L 2,000 ML 75 ML IV (04:52)
[2024-01-19] MEDS: KETOROLAC INJ 30 MG/ML VIAL 15 MG IVP (04:57)
[2024-01-19] MEDS: MEROPENEM INJ 1,000 MG in SODIUM CHLORIDE 0.9% (P) 50 ML 100 MG IV ×3 (05:01→21:36)
[2024-01-19 06:11] LABS: Basophils # (Auto) 0.1 Thou/mm3 (0.0-0.2); Basophils % (Auto) 0 % (0-2.5); Eosinophils # (Auto) 0.4 Thou/mm3 (0.0-0.5); Eosinophils % (Auto) 3 % (0-10); Hematocrit 20.2 % (41.0-53.0); Immature Granulocytes % (Auto) 2 % (0-0); Immature Granulocytes Auto 0.23 Thou/mm3 (0.00-0.00); Lymphocytes # (Auto) 1.6 Thou/mm3 (1.0-4.8); Lymphocytes % (Auto) 10 % (10-50); Mean Corpuscular HGB Conc 34.2 g/dl (31.0-37.0); Mean Corpuscular Hemoglobin 28.8 pg (25.0-35.0); Mean Corpuscular Volume 84 fL (80-100); Monocytes # (Auto) 1.4 Thou/mm3 (0.0-0.8); Monocytes % (Auto) 9 % (0-12); Neutrophils % (Auto) 77 % (37-80); Nucleated Red Blood Cell % 0 /100 WBC (0); Platelet Count 418 Thou/mm3 (140-440); RDW Standard Deviation 42.6 fL (35.1-43.9); White Blood Count 15.7 Thou/mm3 (3.8-10.6)
[2024-01-19 06:14] LABS: Hemoglobin 6.9 g/dL (13.5-16.0)
[2024-01-19 06:34] LABS: Alanine Aminotransferase 28 U/L (10-49); Albumin, Serum 3.2 gm/dL (3.5-5.0); Albumin/Globulin Ratio 0.8 (1.2-2.2); Alkaline Phosphatase 153 U/L (46-116); Anion Gap 9 (7-16); Aspartate Amino Transferase 24 U/L (0-34); BUN/Creatinine Ratio 26 Ratio (12-20); Bilirubin,Total 0.3 mg/dL (0.3-1.2); Blood Urea Nitrogen 37 mg/dL (9-23); Calcium 8.4 mg/dL (8.3-10.6); Carbon Dioxide 20.2 mMol/L (20.0-31.0); Chloride 105 mMol/L (98-107); Creatinine (Component) 1.4 mg/dL (0.6-1.3); Estimated Creatinine Clearance 64.6 mL/min (>60); Globulin 3.8 gm/dL (2.3-3.5); Glucose 135 mg/dL (74-106); Magnesium 1.6 mg/dL (1.6-2.6); Osmolality,Calculated 278 (275-295); Phosphorous 3.8 mg/dL (2.4-5.1); Potassium 3.4 mMol/L (3.4-5.1); Sodium 134 mMol/L (136-145); eGFR > 60 See Note
[2024-01-19] MEDS: INSULIN LISPRO (AdmeLOG) 1 UNIT/0.01 ML UNIT SC ×4 (08:09→21:36)
[2024-01-19 08:16] LABS: Hematocrit 22.7 % (41.0-53.0)
[2024-01-19 08:24] LABS: Hemoglobin 7.6 g/dL (13.5-16.0)
[2024-01-19] MEDS: INSULIN GLARGINE (Lantus) 5 UNIT/0.05 ML (PER 5 UNITS) 10 UNIT SC (09:18)
[2024-01-19] MEDS: HYDROcodone/APAP 5/325 TABLET 1 TAB PO ×2 (09:18→22:03)
[2024-01-19] MEDS: amLODIPine BESYLATE 5 MG TABLET 10 MG PO (09:18)
[2024-01-19] MEDS: PANTOPRAZOLE INJ 40 MG VIAL IVP (09:18)
[2024-01-19] MEDS: HEPARIN SOD INJ 5000 UNIT/ML VIAL SC ×2 (09:18→20:35)
--- NOTE | 2024-01-19 11:39 | ESPR_ITS ---
<Statement entered by Chery Akers DO - 01/19/24 20:49> Senior attestation: Patient was examined and case was reviewed with team including attending physician. Note reviewed, I agree with most of its contents and agree with the patient's care. General surgeon Dr. Rubio following, pending drainage below liver if possible. Also pending ID recs given antibiotic change to merem. Chery Akers DO PGY-3 Documentation for date of: 01/19/24 Subjective Subjective Interval history: Patient was seen at bedside this morning. No overnight events. Patient is still having poor oral intake therefore TPN will be continued. Dr Rubio change IV antibiotics to meropenem (01/18/2024), and will consult IR for fluid drainage in the abdomen. No other complaints at this time. Exam Vital Signs Temp Pulse Resp BP Pulse Ox O2 Del Method O2 Flow Rate 98.1 F 90 20 126/80 97 Room Air 6 01/19/24 08:00 01/19/24 09:18 01/19/24 08:00 01/19/24 09:18 01/19/24 08:00 01/19/24 08:00 01/13/24 16:00 FiO2 30 01/12/24 08:43 Narrative Exam General: A/O x3, no acute distress, resting in bed Eyes: PERRL, EOMI. Anicteric, vision grossly intact. Ears: No ear pain, no ear discharge, Hearing grossly intact. Nose: No nasal discharge. Mouth/Throat: Dry mucous membranes, no redness, no lesions. Neck: Neck supple, non-tender, no cervical lymphadenopathy. Lungs: Clear KYA to auscultation and percussion, No accessory muscle use. Cardio: Normal S1/S2, regular rhythm, no murmurs, no JVD Abdomen: Soft, Wound VAC in place with clean margins and healthy granulation tissue, tenderness in LUQ still present, no palpable masses, peristalsis present, no guarding or rebound. Extremities: Symmetrical, no significant deformities, no peripheral edema , non-tender, peripheral pulses presents. Skin: No rashes, no lesions, warm to touch. Neuro: No focal neurological deficits. motor and sensory intact Psych: Cooperative, appropriate mood and effect. Objective Labs 01/20/24 05:19 01/20/24 05:19 Labs: Laboratory Results - last 24 hr 01/19/24 01/19/24 05:47 07:49 WBC 15.7 H RBC 2.40 L Hgb 6.9 L* 7.6 L Hct 20.2 L* 22.7 L MCV 84 MCH 28.8 MCHC 34.2 RDW Std Deviation 42.6 Plt Count 418 D Neut % (Auto) 77 Lymph % (Auto) 10 Preston % (Auto) 9 Eos % (Auto) 3 Baso % (Auto) 0 Neut # (Auto) 12.0 H Lymph # (Auto) 1.6 Preston # (Auto) 1.4 H Eos # (Auto) 0.4 Baso # (Auto) 0.1 Immature Gran # (Auto) 0.23 H Absolute Nucleated RBC 0.00 Immature Gran % 2 H Nucleated RBC % 0 Sodium 134 L Potassium 3.4 D Chloride 105 Carbon Dioxide 20.2 Anion Gap 9 BUN 37 H Creatinine 1.4 H Estim Creat Clear Calc 64.6 eGFR > 60 BUN/Creatinine Ratio 26 H Glucose 135 H Calculated Osmolality 278 Calcium 8.4 Corrected Calcium 9.0 Phosphorus 3.8 Magnesium 1.6 Total Bilirubin 0.3 AST 24 ALT 28 Alkaline Phosphatase 153 H D Total Protein 7.0 Albumin 3.2 L Globulin 3.8 H Albumin/Globulin Ratio 0.8 L ABG Interpretation ABG results: 12/21/23 12/24/23 12/25/23 15:50 19:45 02:34 ABG pH 7.40 7.23 L D ABG pCO2 40 56 H D ABG pO2 134 H 229 H D ABG HCO3 25 24 ABG O2 Saturation 99 H 100 H ABG Base Excess 0 -5 L VBG pH 7.48 VBG pCO2 35 L VBG pO2 56 VBG Base Excess 2 12/25/23 12/25/23 12/26/23 04:54 10:48 06:56 ABG pH 7.25 L 7.33 L 7.34 L ABG pCO2 52 H 45 43 ABG pO2 93 D 99 95 ABG HCO3 23 23 23 ABG O2 Saturation 97 98 98 ABG Base Excess -5 L -3 -2 VBG pH VBG pCO2 VBG pO2 VBG Base Excess 12/26/23 01/05/24 01/06/24 10:15 08:13 13:50 ABG pH 7.36 7.37 7.42 ABG pCO2 41 38 30 L ABG pO2 87 75 L 90 ABG HCO3 23 22 19 L ABG O2 Saturation 98 96 98 ABG Base Excess -2 -3 -5 L VBG pH VBG pCO2 VBG pO2 VBG Base Excess 01/06/24 01/07/24 01/07/24 21:44 00:30 04:35 ABG pH 7.12 L* D 7.22 L D 7.27 L ABG pCO2 69 H D 52 H D 45 ABG pO2 261 H D 161 H D 209 H D ABG HCO3 22 21 21 ABG O2 Saturation 100 H 99 H 100 H ABG Base Excess -7 L -6 L -6 L VBG pH VBG pCO2 VBG pO2 VBG Base Excess 01/08/24 01/09/24 01/09/24 04:50 04:14 15:49 ABG pH 7.24 L 7.26 L 7.27 L ABG pCO2 47 50 H 51 H ABG pO2 97 D 97 90 ABG HCO3 20 22 23 ABG O2 Saturation 98 98 97 ABG Base Excess -7 L -5 L -4 L VBG pH VBG pCO2 VBG pO2 VBG Base Excess 01/10/24 01/11/24 01/12/24 04:52 04:35 05:24 ABG pH 7.33 L 7.34 L 7.31 L ABG pCO2 43 43 49 H ABG pO2 101 99 106 ABG HCO3 23 23 25 ABG O2 Saturation 98 98 98 ABG Base Excess -3 -3 -2 VBG pH VBG pCO2 VBG pO2 VBG Base Excess Quality Measures Quality Measures VTE prophylaxis Assessment & Plan Assessment Current Active Medications: Generic Name Dose Route Start Last Admin Trade Name Naun PRN Reason Stop Dose Admin Acetaminophen 650 mg 12/31/23 13:25 01/15/24 09:48 Acetaminophen 325 Mg Tablet PO 01/20/24 23:30 650 mg Q6HR PRN Administration Pain (1-3) and FEVER>100.3 Amlodipine Besylate 10 mg 01/13/24 12:30 01/19/24 09:18 Amlodipine Besylate 5 Mg Tablet PO 02/12/24 12:29 10 mg QDAY TAL Administration Dextrose 25 ml 01/04/24 14:37 Dextrose 50%-Water Inj 50 Ml Syringe IV 02/03/24 14:36 Q15MIN PRN BG 50-70 responsive npo pt Dextrose 50 ml 10/27/24 14:37 Dextrose 50%-Water Inj 50 Ml Syringe IV 02/03/24 14:36 Q15MIN PRN BG <50 OR BG <70 & pt unresponsive Glucagon 1 mg 01/07/24 11:34 Glucagon Inj 1 Mg Vial IM Q15MIN PRN BG <70, and no IV access Heparin Sodium (Porcine) 5,000 unit 01/11/24 09:00 01/19/24 09:18 Heparin Sod Inj 5000 Unit/Ml Vial SC 01/25/24 08:59 5,000 unit Q12HR TAL Administration Amino Acids 2,000 mls @ 75 mls/hr 01/19/24 05:16 01/19/24 04:52 Tpn-Outsourced IV 01/20/24 05:15 75 mls/hr .Q24H TAL Administration Protocol Meropenem 1,000 mg/ Sodium 50 mls @ 100 mls/hr 01/18/24 22:00 01/19/24 05:01 Chloride IV 01/25/24 21:59 100 mls/hr Q8HR TAL Administration Protocol Insulin Glargine 10 unit 01/04/24 14:45 01/19/24 09:18 Insulin Glargine (Lantus) 5 Unit/0.05 Ml (Per 5 Units) SC 02/03/24 14:44 10 unit QDAY TAL Administration Insulin Human Lispro 0 unit 01/14/24 07:30 01/19/24 08:09 Insulin Lispro (Admelog) 1 Unit/0.01 Ml Unit SC 02/13/24 07:29 1 unit ACHS TAL Administration Protocol Labetalol HCl 10 mg 01/05/24 19:16 01/13/24 13:24 Labetalol Inj 5 Mg/Ml Vial 20 Ml IVP 02/04/24 19:29 10 mg Q6H PRN Administration SBP >170, DBP>110 Melatonin 3 mg 12/28/23 21:00 01/18/24 20:55 Melatonin 3 Mg Tablet PO 01/27/24 20:59 3 mg HS TAL Administration Ondansetron HCl 4 mg 12/21/23 23:31 01/15/24 17:12 Ondansetron Inj 2 Mg/Ml Inj 2 Ml IV 01/20/24 23:30 4 mg Q4HR PRN Administration NAUSEA OR VOMITING Pantoprazole Sodium 40 mg 01/01/24 09:00 01/19/24 09:18 Pantoprazole Inj 40 Mg Vial IVP 01/31/24 08:59 40 mg QDAY TAL Administration Protocol Plan 43-year-old male with no significant past medical history who was admitted to the hospital by general surgery on 12/21/2023 for acute perforated appendicitis with multiple postop complications. #Sepsis likely secondary to acute perforated appendicitis #Acute perforated appendicitis #Small bowel perforation s/p ileostomy #Peritonitis #Subcapsular abscess s/p CT-guided drain placement #Subphrenic abscess, R ?Initially patient met SIRS 2 out of 4 with leukocytosis and tachycardia ?Patient underwent multiple surgical procedures including laparoscopic appendectomy on day of admission (12/21/2023), 2 ex laps (12/25/2023 and 01/06/2024), and additional secondary closure of abdomen incision (01/01/2024). ?Multiple blood cultures, urine cultures, sputum cultures, and abdominal wound cultures have come back negative ?Abdomen/pelvis CT on 01/12/2024 showed localized fluid collection on the right lower abdomen consistent with an abscess ?Patient had percutaneous drainage catheter taken out by IR as per general surgeon ?Patient has not been having good oral intake therefore TPN will be continued as per general surgeon -DC'd vancomycin (day 9) and Zosyn (day 8 of second treatment) -WBC 15.7 (downtrending) and still tachycardic -CT abdomen/pelvis (01/18/24) showed Right subphrenic abscess which is very small in thickness, 13 mm and abscess below the liver measures 8.4 x 11.5 x 3.8 cm Plan: ?Continue TPN at 75/h as patient still not having good oral intake. -Continue meropenem [01/18/2024-] as per Dr. Rubio -IR drainage will be ordered by Dr. Rubio for tomorrow ?Wound care ?Will continue advancing diet as tolerated ?Will continue to monitor for any spiking any fever or elevated WBC #Acute hypoxic respiratory failure #Pleural effusion ?Patient was intubated in the ICU and was successfully extubated on 01/12/2024 ?Chest x-ray on 01/12/2024 showed no pneumonia and no right pleural fluid ?Patient had chest tube taken out by general surgeon -Will assess possibility to take chest tube out ?Checks x-ray showed no pleural fluid Plan: ?Will continue to monitor #Normocytic normochromic anemia ?Hgb 7.6 ?Most likely a component of some blood loss given multiple surgical procedures Plan: ?Will transfuse if hemoglobin less than 7 ?Will continue to monitor #Hypokalemia -Potassium 3.4 today Plan: -Will replete as necessary -Will continue to monitor #ANITHA ?Creatinine 1.4 today Plan: ?Avoid nephrotoxic agents ?Renally dose medications ?Will continue to monitor Thank you for allowing us to be part of the patient's care. Disposition: Patient seen in telemetry Diet: Regular GI prophylaxis: protonix DVT prophylaxis: heparin sc Code: Full code Nutritional: TPN Case disclosed with Attending Dr. Raamn and My senior Dr. Akers PGY3. Cortez Harp PGY1 Attending Provider Attestation/Addendum I reviewed labs, imaging, EKG, home medications and prior available records. Face to face evaluation was performed by me. I have personally examined the patient and discussed assessment and plan with the IM team. I reviewed the resident note and agree with the plan with exceptions as below. Sepsis secondary to acute appendicitis: Status post appendectomy. Complicated by small bowel perforation and pelvic abscess, peritonitis status post ex lap. Status post [address] with wound VAC. The drains were removed however WBC was uptrending. Ordered CT abdomen/pelvis that showed large abscess versus fluid collection below the liver. Consulted IR for drainage. Discussed with general surgery: Broadened antibiotics to meropenem. ID is following. Trend WBC: Downtrending. Poor oral intake: In the setting of multiple abdominal surgeries/drains, active abdominal infection and prolonged hospitalization. He is still not meeting his nutritional requirements. Continue TPN. Continue diet supplements as tolerated. Right-sided pleural fluid: Status post chest tube insertion: Ordered repeat x- ray that showed resolution of the pleural effusion. Removed the chest tube.
--- NOTE | 2024-01-19 13:46 | PC.SS ---
SS was contacted by Kimberlee from [facility] requesting H&P, Wound assessment notes and operative report. ETELVINA sent requested information to [phone]. Kimberlee also requested Prescription, however SS attempted to contact Wound Care nurse, however there were no wound care nurse today due to holiday.
--- NOTE | 2024-01-19 16:36 | PD.SURPROG ---
Documentation for date of: 01/19/24 Subjective Subjective Brief History: As above Narrative: The patient is eating slightly better today and he seems to be in good spirits. But is still complaining of pain over the left upper quadrant Exam Vital Signs Temp Pulse Resp BP Pulse Ox O2 Del Method O2 Flow Rate 99.5 F 116 H 27 H 139/84 H 98 Room Air 6 01/19/24 12:00 01/19/24 12:00 01/19/24 12:00 01/19/24 12:00 01/19/24 12:00 01/19/24 12:00 01/13/24 16:00 FiO2 30 01/12/24 08:43 His vital signs show continued tachycardia with heart rate around 116. His respirations are also high but it has become normal for him Routine Abdominal Exam Comments: Abdominal examination is negative other than some tenderness for the left upper quadrant Results Results: Laboratory Laboratory Narrative: Laboratory results show slight decrease in the WBC Results: Imaging Imaging narrative: CT scan performed yesterday showed resolution of the subphrenic abscess about the liver. However there is some collection extending below the liver measuring 8 x 11 cm. Assessment & Plan Assessment Additional comments: Impression: Persistent collection below the liver possibly causing leukocytosis Mild bilateral pneumonia with effusion Plan Plan: Yesterday we switched antibiotics from Zosyn to meropenem because of hospital-acquired organisms which may be causing this. Moreover patient has been on Zosyn for more than 4 weeks and might of developed resistant bacteria even though it is not been cultured in the abscess. We will ask Dr. Caceres to see if he can drain this collection tomorrow under CT guidance Procedures Procedures Exploratory laparotomy and drainage of the subcutaneous infection and wound VAC application
--- NOTE | 2024-01-19 17:47 | PC.NURSE ---
Patient denied lunch tray left at bedside but did take some bited from food brought from outside of the hospital
[2024-01-19] MEDS: ACETAMINOPHEN 325 MG TABLET 650 MG PO (19:24)
[2024-01-19] MEDS: MELATONIN 3 MG TABLET PO (20:35)
[2024-01-20] VITALS (10 sets, daily range): BP systolic 104–159; BP diastolic 75–90; PULSE 100–120; RESP 17–23; TEMP 36.2–36.9; O2SAT 96–98; BMI 29.7
[2024-01-20] MEDS: HYDROcodone/APAP 5/325 TABLET 1 TAB PO ×4 (03:44→21:15)
[2024-01-20] MEDS: MULTIVITAMIN IV (05:46)
[2024-01-20] MEDS: MEROPENEM INJ 1,000 MG in SODIUM CHLORIDE 0.9% (P) 50 ML 100 MG IV ×3 (05:46→21:14)
[2024-01-20] MEDS: [UNRECOGNIZED DRUG - OTHER] IV (05:46)
[2024-01-20 05:51] LABS: Basophils # (Auto) 0.1 Thou/mm3 (0.0-0.2); Basophils % (Auto) 0 % (0-2.5); Eosinophils # (Auto) 0.3 Thou/mm3 (0.0-0.5); Eosinophils % (Auto) 2 % (0-10); Immature Granulocytes % (Auto) 1 % (0-0); Immature Granulocytes Auto 0.19 Thou/mm3 (0.00-0.00); Lymphocytes # (Auto) 1.6 Thou/mm3 (1.0-4.8); Lymphocytes % (Auto) 11 % (10-50); Mean Corpuscular HGB Conc 33.8 g/dl (31.0-37.0); Mean Corpuscular Hemoglobin 28.3 pg (25.0-35.0); Mean Corpuscular Volume 84 fL (80-100); Monocytes # (Auto) 1.3 Thou/mm3 (0.0-0.8); Monocytes % (Auto) 9 % (0-12); Neutrophils # (Auto) 11.3 Thou/mm3 (1.8-7.7); Neutrophils % (Auto) 77 % (37-80); Nucleated Red Blood Cell % 0 /100 WBC (0); Platelet Count 477 Thou/mm3 (140-440); RDW Standard Deviation 42.7 fL (35.1-43.9); Red Blood Count 2.58 Miln/mm3 (4.50-5.90); White Blood Count 14.7 Thou/mm3 (3.8-10.6)
[2024-01-20 05:57] LABS: Hematocrit 21.6 % (41.0-53.0); Hemoglobin 7.3 g/dL (13.5-16.0)
[2024-01-20] MEDS: INSULIN LISPRO (AdmeLOG) 1 UNIT/0.01 ML UNIT SC ×3 (06:00→21:14)
[2024-01-20 06:28] LABS: Alanine Aminotransferase 24 U/L (10-49); Albumin, Serum 3.4 gm/dL (3.5-5.0); Albumin/Globulin Ratio 0.9 (1.2-2.2); Alkaline Phosphatase 157 U/L (46-116); Anion Gap 7 (7-16); Aspartate Amino Transferase 21 U/L (0-34); BUN/Creatinine Ratio 25 Ratio (12-20); Bilirubin,Total 0.3 mg/dL (0.3-1.2); Blood Urea Nitrogen 33 mg/dL (9-23); Calcium 8.3 mg/dL (8.3-10.6); Calcium (Corrected) 8.8 mg/dL (8.5-10.1); Carbon Dioxide 19.9 mMol/L (20.0-31.0); Chloride 103 mMol/L (98-107); Creatinine (Component) 1.3 mg/dL (0.6-1.3); Estimated Creatinine Clearance 69.6 mL/min (>60); Globulin 3.8 gm/dL (2.3-3.5); Glucose 146 mg/dL (74-106); Magnesium 1.5 mg/dL (1.6-2.6); Osmolality,Calculated 271 (275-295); Phosphorous 3.5 mg/dL (2.4-5.1); Potassium 3.4 mMol/L (3.4-5.1); Sodium 130 mMol/L (136-145); Total Protein 7.2 gm/dL (5.7-8.2); eGFR > 60 See Note
--- NOTE | 2024-01-20 06:44 | PC.NURSE ---
DR. ANETTE EVANS MADE AWARE OF CRITICAL LAB HCT 21.6, HBG 7.3. STATES HE WILL MAKE DAY TEAM AWARE.
--- NOTE | 2024-01-20 08:42 | PC.WOUND ---
Addendum entered by Charlotte Corey RN 01/20/24 15:43: Updated clinical notes faxed to [facility] with return receipt by request of Nilton from [facility]. Home wound vac authorized for release when medically ready. Original Note: Home Wound vac rx obtained by Dr. Raman. Faxed to [facility] with return receipt. Spoke with Nilton at [facility], rx received. Will review pending release. Spoke with Marilyn TURCIOS CM, aware of need for home health on discharge for wound vac care. Requested to inform S/S with tentative discharge date. Spoke with [facility], next available appointment 01/29/24 at 1000. Plan for dressing change and wound care/ileostomy education today. Will continue to follow
[2024-01-20] MEDS: Magnesium Sulfate 4 GM Ivpb 4 GM/50 ML BAG IV (08:51)
[2024-01-20] MEDS: PANTOPRAZOLE INJ 40 MG VIAL IVP (09:00)
[2024-01-20] MEDS: amLODIPine BESYLATE 5 MG TABLET 10 MG PO (09:04)
[2024-01-20] MEDS: INSULIN GLARGINE (Lantus) 5 UNIT/0.05 ML (PER 5 UNITS) 10 UNIT SC (09:05)
--- NOTE | 2024-01-20 09:21 | ESPR_ITS ---
<Statement entered by Chery Akers DO - 01/20/24 21:21> Senior attestation: Patient was examined and case was reviewed with team including attending physician. Note reviewed, I agree with most of its contents and agree with the patient's care. CT guided drainage of abdominal abscess planned today, will follow up with general surgeon Dr. Rubio. Infectious disease following. Chery Akers DO PGY-3 Documentation for date of: 01/20/24 Subjective Subjective Interval history: Patient seen at bedside this morning. Overnight patient was having abdominal pain therefore was given norco x1, consulted Dr. Rubio to order norco as needed. Patient NPO for now as per Dr. Rubio for drainage of abdominal fluid today by IR. Still having poor oral intake. No other complaints at this time. Exam Vital Signs Temp Pulse Resp BP Pulse Ox O2 Del Method O2 Flow Rate 98.2 F 113 H 23 H 159/90 H 97 Room Air 6 01/20/24 08:00 01/20/24 09:04 01/20/24 08:00 01/20/24 09:04 01/20/24 08:00 01/20/24 08:00 01/13/24 16:00 FiO2 30 01/12/24 08:43 Narrative Exam General: A/O x3, no acute distress, resting in bed Eyes: PERRL, EOMI. Anicteric, vision grossly intact. Ears: No ear pain, no ear discharge, Hearing grossly intact. Nose: No nasal discharge. Mouth/Throat: Dry mucous membranes, no redness, no lesions. Neck: Neck supple, non-tender, no cervical lymphadenopathy. Lungs: Clear KYA to auscultation and percussion, No accessory muscle use. Cardio: Normal S1/S2, regular rhythm, no murmurs, no JVD Abdomen: Soft, Wound VAC in place with clean margins and healthy granulation tissue, tenderness in LUQ, no palpable masses, peristalsis present, no guarding or rebound. Extremities: Symmetrical, no significant deformities, no peripheral edema , non-tender, peripheral pulses presents. Skin: No rashes, no lesions, warm to touch. Neuro: No focal neurological deficits. motor and sensory intact Psych: Cooperative, appropriate mood and effect. Objective Labs 01/21/24 05:26 01/21/24 05:26 Labs: Laboratory Results - last 24 hr 01/20/24 05:19 WBC 14.7 H RBC 2.58 L Hgb 7.3 L Hct 21.6 L* MCV 84 MCH 28.3 MCHC 33.8 RDW Std Deviation 42.7 Plt Count 477 H D Neut % (Auto) 77 Lymph % (Auto) 11 Holmes % (Auto) 9 Eos % (Auto) 2 Baso % (Auto) 0 Neut # (Auto) 11.3 H Lymph # (Auto) 1.6 Holmes # (Auto) 1.3 H Eos # (Auto) 0.3 Baso # (Auto) 0.1 Immature Gran # (Auto) 0.19 H Absolute Nucleated RBC 0.00 Immature Gran % 1 H Nucleated RBC % 0 Sodium 130 L Potassium 3.4 Chloride 103 Carbon Dioxide 19.9 L Anion Gap 7 BUN 33 H Creatinine 1.3 Estim Creat Clear Calc 69.6 eGFR > 60 BUN/Creatinine Ratio 25 H Glucose 146 H Calculated Osmolality 271 L Calcium 8.3 Corrected Calcium 8.8 Phosphorus 3.5 Magnesium 1.5 L Total Bilirubin 0.3 AST 21 ALT 24 Alkaline Phosphatase 157 H Total Protein 7.2 Albumin 3.4 L Globulin 3.8 H Albumin/Globulin Ratio 0.9 L ABG Interpretation ABG results: 12/21/23 12/24/23 12/25/23 15:50 19:45 02:34 ABG pH 7.40 7.23 L D ABG pCO2 40 56 H D ABG pO2 134 H 229 H D ABG HCO3 25 24 ABG O2 Saturation 99 H 100 H ABG Base Excess 0 -5 L VBG pH 7.48 VBG pCO2 35 L VBG pO2 56 VBG Base Excess 2 12/25/23 12/25/23 12/26/23 04:54 10:48 06:56 ABG pH 7.25 L 7.33 L 7.34 L ABG pCO2 52 H 45 43 ABG pO2 93 D 99 95 ABG HCO3 23 23 23 ABG O2 Saturation 97 98 98 ABG Base Excess -5 L -3 -2 VBG pH VBG pCO2 VBG pO2 VBG Base Excess 12/26/23 01/05/24 01/06/24 10:15 08:13 13:50 ABG pH 7.36 7.37 7.42 ABG pCO2 41 38 30 L ABG pO2 87 75 L 90 ABG HCO3 23 22 19 L ABG O2 Saturation 98 96 98 ABG Base Excess -2 -3 -5 L VBG pH VBG pCO2 VBG pO2 VBG Base Excess 01/06/24 01/07/24 01/07/24 21:44 00:30 04:35 ABG pH 7.12 L* D 7.22 L D 7.27 L ABG pCO2 69 H D 52 H D 45 ABG pO2 261 H D 161 H D 209 H D ABG HCO3 22 21 21 ABG O2 Saturation 100 H 99 H 100 H ABG Base Excess -7 L -6 L -6 L VBG pH VBG pCO2 VBG pO2 VBG Base Excess 01/08/24 01/09/24 01/09/24 04:50 04:14 15:49 ABG pH 7.24 L 7.26 L 7.27 L ABG pCO2 47 50 H 51 H ABG pO2 97 D 97 90 ABG HCO3 20 22 23 ABG O2 Saturation 98 98 97 ABG Base Excess -7 L -5 L -4 L VBG pH VBG pCO2 VBG pO2 VBG Base Excess 01/10/24 01/11/24 01/12/24 04:52 04:35 05:24 ABG pH 7.33 L 7.34 L 7.31 L ABG pCO2 43 43 49 H ABG pO2 101 99 106 ABG HCO3 23 23 25 ABG O2 Saturation 98 98 98 ABG Base Excess -3 -3 -2 VBG pH VBG pCO2 VBG pO2 VBG Base Excess Quality Measures Quality Measures VTE prophylaxis Assessment & Plan Assessment Current Active Medications: Generic Name Dose Route Start Last Admin Trade Name Freq PRN Reason Stop Dose Admin Acetaminophen 650 mg 12/31/23 13:25 01/19/24 19:24 Acetaminophen 325 Mg Tablet PO 01/20/24 23:30 650 mg Q6HR PRN Administration Pain (1-3) and FEVER>100.3 Amlodipine Besylate 10 mg 01/13/24 12:30 01/20/24 09:04 Amlodipine Besylate 5 Mg Tablet PO 02/12/24 12:29 10 mg QDAY TAL Administration Dextrose 25 ml 01/04/24 14:37 Dextrose 50%-Water Inj 50 Ml Syringe IV 02/03/24 14:36 Q15MIN PRN BG 50-70 responsive npo pt Dextrose 50 ml 01/04/24 14:37 Dextrose 50%-Water Inj 50 Ml Syringe IV 02/03/24 14:36 Q15MIN PRN BG <50 OR BG <70 & pt unresponsive Glucagon 1 mg 01/07/24 11:34 Glucagon Inj 1 Mg Vial IM Q15MIN PRN BG <70, and no IV access Heparin Sodium (Porcine) 5,000 unit 01/11/24 09:00 01/20/24 08:59 Heparin Sod Inj 5000 Unit/Ml Vial SC 01/25/24 08:59 Not Given Q12HR TAL Meropenem 1,000 mg/ Sodium 50 mls @ 100 mls/hr 01/18/24 22:00 01/20/24 05:46 Chloride IV 01/25/24 21:59 100 mls/hr Q8HR TAL Administration Protocol Multivitamins/Minerals 10 ml/ 2,010 mls @ 75 mls/hr 01/20/24 05:16 01/20/24 05:46 Amino Acids IV 01/21/24 05:15 75 mls/hr .Q24H TAL Administration Protocol Magnesium Sulfate 4 gm in 50 mls @ 12.5 mls/hr 01/20/24 07:56 01/20/24 08:51 Magnesium Sulfate Ivpb IV 01/20/24 11:55 12.5 mls/hr X1 ONE Administration Insulin Glargine 10 unit 01/04/24 14:45 01/20/24 09:05 Insulin Glargine (Lantus) 5 Unit/0.05 Ml (Per 5 Units) SC 02/03/24 14:44 10 unit QDAY TAL Administration Insulin Human Lispro 0 unit 01/20/24 06:00 01/20/24 06:00 Insulin Lispro (Admelog) 1 Unit/0.01 Ml Unit SC 02/19/24 05:59 1 unit Q6HR TAL Administration Protocol Labetalol HCl 10 mg 01/05/24 19:16 01/13/24 13:24 Labetalol Inj 5 Mg/Ml Vial 20 Ml IVP 02/04/24 19:29 10 mg Q6H PRN Administration SBP >170, DBP>110 Melatonin 3 mg 12/28/23 21:00 01/19/24 20:35 Melatonin 3 Mg Tablet PO 01/27/24 20:59 3 mg HS TAL Administration Ondansetron HCl 4 mg 12/21/23 23:31 01/15/24 17:12 Ondansetron Inj 2 Mg/Ml Inj 2 Ml IV 01/20/24 23:30 4 mg Q4HR PRN Administration NAUSEA OR VOMITING Pantoprazole Sodium 40 mg 01/01/24 09:00 01/20/24 09:00 Pantoprazole Inj 40 Mg Vial IVP 01/31/24 08:59 40 mg QDAY TAL Administration Protocol Plan 43-year-old male with no significant past medical history who was admitted to the hospital by general surgery on 12/21/2023 for acute perforated appendicitis with multiple postop complications. #Sepsis likely secondary to acute perforated appendicitis #Acute perforated appendicitis #Small bowel perforation s/p ileostomy #Peritonitis #Subcapsular abscess s/p CT-guided drain placement #Subphrenic abscess, R ?Initially patient met SIRS 2 out of 4 with leukocytosis and tachycardia ?Patient underwent multiple surgical procedures including laparoscopic appendectomy on day of admission (12/21/2023), 2 ex laps (12/25/2023 and 01/06/2024), and additional secondary closure of abdomen incision (01/01/2024). ?Multiple blood cultures, urine cultures, sputum cultures, and abdominal wound cultures have come back negative ?Abdomen/pelvis CT on 01/12/2024 showed localized fluid collection on the right lower abdomen consistent with an abscess ?Patient had percutaneous drainage catheter taken out by IR as per general surgeon ?Patient has not been having good oral intake therefore TPN will be continued as per general surgeon -DC'd vancomycin (day 9) and Zosyn (day 8 of second treatment) -WBC 14.7 (downtrending) and still tachycardic -CT abdomen/pelvis (01/18/24) showed Right subphrenic abscess which is very small in thickness, 13 mm and abscess below the liver measures 8.4 x 11.5 x 3.8 cm Plan: ?Continue TPN at 75/h as patient still not having good oral intake. -Continue meropenem [01/18/2024-] as per Dr. Rubio -IR drainage will be done today -NPO for now ?Wound care ?Will continue advancing diet as tolerated ?Will continue to monitor for any spiking any fever or elevated WBC #Acute hypoxic respiratory failure #Pleural effusion ?Patient was intubated in the ICU and was successfully extubated on 01/12/2024 ?Chest x-ray on 01/12/2024 showed no pneumonia and no right pleural fluid ?Patient had chest tube taken out by general surgeon -Will assess possibility to take chest tube out ?Checks x-ray showed no pleural fluid Plan: ?Will continue to monitor #Normocytic normochromic anemia ?Hgb 7.3 ?Most likely a component of some blood loss given multiple surgical procedures Plan: ?Will transfuse if hemoglobin less than 7 ?Will continue to monitor #Hypokalemia #Hypomagnesemia -Potassium 3.4, Mg 1.5 today Plan: -Mg 4gm x1 -Will replete as necessary -Will continue to monitor #ANITHA ?Creatinine 1.3 today Plan: ?Avoid nephrotoxic agents ?Renally dose medications ?Will continue to monitor Thank you for allowing us to be part of the patient's care. Disposition: Patient seen in telemetry Diet: NPO GI prophylaxis: protonix DVT prophylaxis: heparin sc Code: Full code Nutritional: TPN Case disclosed with Attending Dr. Raman and My senior Dr. Akers PGY3. Cortez Harp PGY1 Attending Provider Attestation/Addendum I reviewed labs, imaging, EKG, home medications and prior available records. Face to face evaluation was performed by me. I have personally examined the patient and discussed assessment and plan with the IM team. I reviewed the resident note and agree with the plan with exceptions as below. Sepsis secondary to acute appendicitis: Status post appendectomy. Complicated by small bowel perforation and pelvic abscess, peritonitis status post ex lap. Status post [address] with wound VAC. The drains were removed however WBC was uptrending. Ordered CT abdomen/pelvis that showed large abscess versus fluid collection below the liver. Consulted IR for drainage and he is status post a new drainage on 01/19. Discussed with general surgery: Broadened antibiotics to meropenem. ID is following. Trend WBC: Downtrending. Poor oral intake: In the setting of multiple abdominal surgeries/drains, active abdominal infection and prolonged hospitalization. He is still not meeting his nutritional requirements. Continue TPN. Continue diet supplements as tolerated. Right-sided pleural fluid: Status post chest tube insertion: Ordered repeat x- ray that showed resolution of the pleural effusion. Removed the chest tube.
--- NOTE | 2024-01-20 11:19 | PC.NURSE ---
Addendum entered by Tristen Jefferson RN 01/20/24 11:20: Patient transported at 10:58. Original Note: Patient transported to [facility] via nestor Zamudio CNA. No signs of acute distress.
--- NOTE | 2024-01-20 12:14 | XR_ITS ---
Examination: CT-guided percutaneous placement abscess drainage catheter right abdomen CT abdomen without intravenous contrast Date and time of procedure: January 20, 2024 1223 hours INDICATIONS: Post appendectomy abdominal pain and leukocytosis, abscess above lateral and below the right liver on CT examination on January 18, 2024 Informed consent provided. A timeout was completed verifying correct patient, procedure, site and positioning. Technique: Axial 3 mm sections were obtained for localization of the right abdomen abscess. Appropriate area is marked. The patient's site was prepped and draped in sterile fashion Maximal sterile barrier technique utilized, including hand hygiene Local anesthesia was obtained with 1% lidocaine. Low dose protocols were performed. One or more of the following dose reduction techniques were used; automated exposure control, adjustment of the mA and/or KV according to patient size, use of iterative reconstruction technique. Utilizing CT fluoroscopic guidance 5 Wolof catheter placed in the abscess collection 0.35 wire guide placed through the catheter followed by dilators and an 8 Wolof abscess drainage catheter within and sideholes Aspiration of thick purulent material sent for culture and sensitivity Patient appears in stable condition during this procedure. At completion of the procedure, the patient is in satisfactory condition. Estimated blood loss 3 cc Complete culture and sensitivity report to follow. Impression: Successful CT-guided placement right abdomen abscess drainage catheter
[2024-01-20] MEDS: fentaNYL CIT INJ 50 mCg/ML AMP 2ML 75 MCG IVP (12:44)
[2024-01-20] MEDS: LIDOCAINE INJ PF 1% 5 ML VIAL 3 ML INFL (12:54)
--- NOTE | 2024-01-20 13:25 | PC.NURSE ---
Patient transported back to room from cathlab- patient awake, alert and oriented with no signs of acute distress. Accordion drain in place.
--- NOTE | 2024-01-20 13:42 | PC.NURSE ---
Patient tolerated procedure well. Transferred to Tele via [facility]. Report given to Caty TURCIOS at [facility]. Dressing clean, dry, and intact.
--- NOTE | 2024-01-20 14:30 | PC.NURSE ---
Specimen in [place] dropped off at Lab.
[2024-01-20] MEDS: SODIUM ACET ADDITIVE IV (14:46)
[2024-01-20] MEDS: [UNRECOGNIZED DRUG - OTHER] IV (14:46)
[2024-01-20] MEDS: POTASSIUM ACET IV (14:46)
[2024-01-20] MEDS: ACETAMINOPHEN 325 MG TABLET 650 MG PO (14:46)
[2024-01-20] MEDS: CALCIUM GLUC/NS 1000MG IVPB 1,000 MG/50 ML BAG 50 MG IV (15:12)
--- NOTE | 2024-01-20 19:06 | PC.CM ---
Addendum entered by Marilyn Guillaume RN 01/20/24 19:11: Patient is not ready for discharge at this time. I told her to let patient's doctor know patient will need home health. Original Note: I received a call from [place] stating patient will need home health for wound vac management. I placed patient on [facility].
[2024-01-20] MEDS: HEPARIN SOD INJ 5000 UNIT/ML VIAL SC (21:15)
[2024-01-20] MEDS: MELATONIN 3 MG TABLET PO (21:15)
[2024-01-21] VITALS (8 sets, daily range): BP systolic 124–144; BP diastolic 85–90; PULSE 97–126; RESP 15–23; TEMP 36.1–36.9; O2SAT 96–97
[2024-01-21] MEDS: HYDROcodone/APAP 5/325 TABLET 1 TAB PO ×5 (02:10→21:40)
--- NOTE | 2024-01-21 03:11 | PC.NURSE ---
[facility] downtime 01/21/24 [id number]
[2024-01-21 05:51] LABS: Basophils % (Auto) 0 % (0-2.5); Eosinophils # (Auto) 0.2 Thou/mm3 (0.0-0.5); Eosinophils % (Auto) 1 % (0-10); Hematocrit 22.5 % (41.0-53.0); Immature Granulocytes % (Auto) 1 % (0-0); Immature Granulocytes Auto 0.17 Thou/mm3 (0.00-0.00); Lymphocytes # (Auto) 1.7 Thou/mm3 (1.0-4.8); Lymphocytes % (Auto) 12 % (10-50); Mean Corpuscular HGB Conc 33.3 g/dl (31.0-37.0); Mean Corpuscular Hemoglobin 28.1 pg (25.0-35.0); Mean Corpuscular Volume 84 fL (80-100); Monocytes # (Auto) 1.1 Thou/mm3 (0.0-0.8); Monocytes % (Auto) 7 % (0-12); Neutrophils # (Auto) 11.6 Thou/mm3 (1.8-7.7); Neutrophils % (Auto) 79 % (37-80); Nucleated Red Blood Cell % 0 /100 WBC (0); Platelet Count 482 Thou/mm3 (140-440); RDW Standard Deviation 42.9 fL (35.1-43.9); Red Blood Count 2.67 Miln/mm3 (4.50-5.90); White Blood Count 14.8 Thou/mm3 (3.8-10.6)
[2024-01-21 05:59] LABS: Hemoglobin 7.5 g/dL (13.5-16.0)
[2024-01-21 06:15] LABS: Alanine Aminotransferase 17 U/L (10-49); Albumin, Serum 3.3 gm/dL (3.5-5.0); Albumin/Globulin Ratio 0.8 (1.2-2.2); Alkaline Phosphatase 148 U/L (46-116); Anion Gap 6 (7-16); Aspartate Amino Transferase 19 U/L (0-34); BUN/Creatinine Ratio 26 Ratio (12-20); Bilirubin,Total 0.3 mg/dL (0.3-1.2); Blood Urea Nitrogen 31 mg/dL (9-23); Calcium 8.4 mg/dL (8.3-10.6); Carbon Dioxide 23.4 mMol/L (20.0-31.0); Chloride 101 mMol/L (98-107); Creatinine (Component) 1.2 mg/dL (0.6-1.3); Estimated Creatinine Clearance 75.4 mL/min (>60); Globulin 3.9 gm/dL (2.3-3.5); Glucose 149 mg/dL (74-106); Osmolality,Calculated 270 (275-295); Sodium 130 mMol/L (136-145); Total Protein 7.2 gm/dL (5.7-8.2); eGFR > 60 See Note
[2024-01-21] MEDS: MEROPENEM INJ 1,000 MG in SODIUM CHLORIDE 0.9% (P) 50 ML 100 MG IV ×3 (06:24→21:38)
[2024-01-21] MEDS: MULTIVITAMIN IV (06:24)
[2024-01-21] MEDS: [UNRECOGNIZED DRUG - OTHER] IV (06:24)
[2024-01-21] MEDS: INSULIN GLARGINE (Lantus) 5 UNIT/0.05 ML (PER 5 UNITS) 10 UNIT SC (08:14)
[2024-01-21] MEDS: INSULIN LISPRO (AdmeLOG) 1 UNIT/0.01 ML UNIT SC ×2 (08:15→21:37)
[2024-01-21] MEDS: amLODIPine BESYLATE 5 MG TABLET 10 MG PO (08:17)
[2024-01-21] MEDS: HEPARIN SOD INJ 5000 UNIT/ML VIAL SC ×2 (08:17→21:37)
[2024-01-21] MEDS: PANTOPRAZOLE INJ 40 MG VIAL IVP (08:18)
--- NOTE | 2024-01-21 08:53 | ESPR_ITS ---
<Statement entered by Chery Akers DO - 01/21/24 17:27> Senior attestation: Patient was examined and case was reviewed with team including attending physician. Note reviewed, I agree with most of its contents and agree with the patient's care. CT guided abdominal abscess drainage has been placed however no drainage reported, general surgery notified. Pending ID recommendations, currently on merem. Chery Akers DO PGY-3 <Statement entered by Cr Carey MD - 01/21/24 14:52> Senior Resident Attestation: I supervised/discussed management plan with paid intern physician Dr. Goncalves, and was involved in the care of this patient. I personally saw and examined the patient and discussed the assessment and plan with the entire medicine team, including my attending. I agree with the assessment and plan as documented. Patient had IR guided drain placement yesterday, today it does not have any output, general surgery was notified about the finding. Will continue meropenem. Patient got 1 dose of ketorolac for pain. Patient's care was discussed with attending physician, Dr. Raman. Cr Carey MD PGY-2. Documentation for date of: 01/21/24 Subjective Subjective Interval history: Patient was seen at bedside this morning. No overnight events. He got a pleural drainage placed yesterday by IR. No visible drainage was coming out of the pleural drainage. Patient still complaining of left upper quadrant pain around 5-6 out of 10. Recommend to follow-up with ID recommendations concerning antibiotic regimen and recommend titrating down on TPN as patient has been on TPN for multiple days now. Also recommend encouraging more oral intake advancing diet as tolerated. No other complaints at this time. Exam Vital Signs Temp Pulse Resp BP Pulse Ox O2 Del Method O2 Flow Rate 98.4 F 112 H 18 128/85 H 97 Room Air 3 01/21/24 04:00 01/21/24 08:17 01/21/24 04:00 01/21/24 08:17 01/21/24 04:00 01/20/24 20:00 01/20/24 16:00 FiO2 30 01/20/24 16:00 Narrative Exam General: A/O x3, no acute distress, resting in bed Eyes: PERRL, EOMI. Anicteric, vision grossly intact. Ears: No ear pain, no ear discharge, Hearing grossly intact. Nose: No nasal discharge. Mouth/Throat: Dry mucous membranes, no redness, no lesions. Neck: Neck supple, non-tender, no cervical lymphadenopathy. Lungs: Clear KYA to auscultation and percussion, No accessory muscle use. Cardio: Normal S1/S2, regular rhythm, no murmurs, no JVD Abdomen: Soft, Wound VAC in place with clean margins and healthy granulation tissue, tenderness in LUQ, no palpable masses, peristalsis present, no guarding or rebound. Pleural drainage in place with no drainage in bag. Extremities: Symmetrical, no significant deformities, no peripheral edema , non-tender, peripheral pulses presents. Skin: No rashes, no lesions, warm to touch. Neuro: No focal neurological deficits. motor and sensory intact Psych: Cooperative, appropriate mood and effect. Objective Labs 01/21/24 05:26 01/21/24 05:26 Labs: Laboratory Results - last 24 hr 01/21/24 05:26 WBC 14.8 H RBC 2.67 L Hgb 7.5 L Hct 22.5 L MCV 84 MCH 28.1 MCHC 33.3 RDW Std Deviation 42.9 Plt Count 482 H Neut % (Auto) 79 Lymph % (Auto) 12 Brule % (Auto) 7 Eos % (Auto) 1 Baso % (Auto) 0 Neut # (Auto) 11.6 H Lymph # (Auto) 1.7 Brule # (Auto) 1.1 H Eos # (Auto) 0.2 Baso # (Auto) 0.0 Immature Gran # (Auto) 0.17 H Absolute Nucleated RBC 0.00 Immature Gran % 1 H Nucleated RBC % 0 Sodium 130 L Potassium 4.0 D Chloride 101 Carbon Dioxide 23.4 Anion Gap 6 L BUN 31 H Creatinine 1.2 Estim Creat Clear Calc 75.4 eGFR > 60 BUN/Creatinine Ratio 26 H Glucose 149 H Calculated Osmolality 270 L Calcium 8.4 Corrected Calcium 9.0 Total Bilirubin 0.3 AST 19 ALT 17 Alkaline Phosphatase 148 H Total Protein 7.2 Albumin 3.3 L Globulin 3.9 H Albumin/Globulin Ratio 0.8 L ABG Interpretation ABG results: 12/21/23 12/24/23 12/25/23 15:50 19:45 02:34 ABG pH 7.40 7.23 L D ABG pCO2 40 56 H D ABG pO2 134 H 229 H D ABG HCO3 25 24 ABG O2 Saturation 99 H 100 H ABG Base Excess 0 -5 L VBG pH 7.48 VBG pCO2 35 L VBG pO2 56 VBG Base Excess 2 12/25/23 12/25/23 12/26/23 04:54 10:48 06:56 ABG pH 7.25 L 7.33 L 7.34 L ABG pCO2 52 H 45 43 ABG pO2 93 D 99 95 ABG HCO3 23 23 23 ABG O2 Saturation 97 98 98 ABG Base Excess -5 L -3 -2 VBG pH VBG pCO2 VBG pO2 VBG Base Excess 12/26/23 01/05/24 01/06/24 10:15 08:13 13:50 ABG pH 7.36 7.37 7.42 ABG pCO2 41 38 30 L ABG pO2 87 75 L 90 ABG HCO3 23 22 19 L ABG O2 Saturation 98 96 98 ABG Base Excess -2 -3 -5 L VBG pH VBG pCO2 VBG pO2 VBG Base Excess 01/06/24 01/07/24 01/07/24 21:44 00:30 04:35 ABG pH 7.12 L* D 7.22 L D 7.27 L ABG pCO2 69 H D 52 H D 45 ABG pO2 261 H D 161 H D 209 H D ABG HCO3 22 21 21 ABG O2 Saturation 100 H 99 H 100 H ABG Base Excess -7 L -6 L -6 L VBG pH VBG pCO2 VBG pO2 VBG Base Excess 01/08/24 01/09/24 01/09/24 04:50 04:14 15:49 ABG pH 7.24 L 7.26 L 7.27 L ABG pCO2 47 50 H 51 H ABG pO2 97 D 97 90 ABG HCO3 20 22 23 ABG O2 Saturation 98 98 97 ABG Base Excess -7 L -5 L -4 L VBG pH VBG pCO2 VBG pO2 VBG Base Excess 01/10/24 01/11/24 01/12/24 04:52 04:35 05:24 ABG pH 7.33 L 7.34 L 7.31 L ABG pCO2 43 43 49 H ABG pO2 101 99 106 ABG HCO3 23 23 25 ABG O2 Saturation 98 98 98 ABG Base Excess -3 -3 -2 VBG pH VBG pCO2 VBG pO2 VBG Base Excess Quality Measures Quality Measures VTE prophylaxis Assessment & Plan Assessment Current Active Medications: Generic Name Dose Route Start Last Admin Trade Name Freq PRN Reason Stop Dose Admin Hydrocodone Bitart/Acetaminophen 1 tab 01/20/24 09:47 01/21/24 06:24 Hydrocodone/Apap 5/325 Tablet PO 01/25/24 09:46 1 tab Q4HR PRN Administration PAIN SCALE 4-10(Mod-Sev Amlodipine Besylate 10 mg 01/13/24 12:30 01/21/24 08:17 Amlodipine Besylate 5 Mg Tablet PO 02/12/24 12:29 10 mg QDAY TAL Administration Dextrose 25 ml 01/04/24 14:37 Dextrose 50%-Water Inj 50 Ml Syringe IV 02/03/24 14:36 Q15MIN PRN BG 50-70 responsive npo pt Dextrose 50 ml 01/04/24 14:37 Dextrose 50%-Water Inj 50 Ml Syringe IV 02/03/24 14:36 Q15MIN PRN BG <50 OR BG <70 & pt unresponsive Glucagon 1 mg 01/07/24 11:34 Glucagon Inj 1 Mg Vial IM Q15MIN PRN BG <70, and no IV access Heparin Sodium (Porcine) 5,000 unit 01/11/24 09:00 01/21/24 08:17 Heparin Sod Inj 5000 Unit/Ml Vial SC 01/25/24 08:59 5,000 unit Q12HR TAL Administration Meropenem 1,000 mg/ Sodium 50 mls @ 100 mls/hr 01/18/24 22:00 01/21/24 06:24 Chloride IV 01/25/24 21:59 100 mls/hr Q8HR TAL Administration Protocol Multivitamins/Minerals 10 ml/ 2,010 mls @ 75 mls/hr 01/21/24 05:16 01/21/24 06:24 Amino Acids IV 01/22/24 05:15 75 mls/hr .Q24H TAL Administration Protocol Insulin Glargine 10 unit 01/04/24 14:45 01/21/24 08:14 Insulin Glargine (Lantus) 5 Unit/0.05 Ml (Per 5 Units) SC 02/03/24 14:44 10 unit QDAY TAL Administration Insulin Human Lispro 0 unit 01/20/24 17:00 01/21/24 08:15 Insulin Lispro (Admelog) 1 Unit/0.01 Ml Unit SC 02/19/24 05:59 1 unit ACHS TAL Administration Protocol Labetalol HCl 10 mg 01/05/24 19:16 01/13/24 13:24 Labetalol Inj 5 Mg/Ml Vial 20 Ml IVP 02/04/24 19:29 10 mg Q6H PRN Administration SBP >170, DBP>110 Melatonin 3 mg 12/28/23 21:00 01/20/24 21:15 Melatonin 3 Mg Tablet PO 01/27/24 20:59 3 mg HS TAL Administration Pantoprazole Sodium 40 mg 01/01/24 09:00 01/21/24 08:18 Pantoprazole Inj 40 Mg Vial IVP 01/31/24 08:59 40 mg QDAY TAL Administration Protocol Plan 43-year-old male with no significant past medical history who was admitted to the hospital by general surgery on 12/21/2023 for acute perforated appendicitis with multiple postop complications. #Sepsis likely secondary to acute perforated appendicitis #Acute perforated appendicitis #Small bowel perforation s/p ileostomy #Peritonitis #Subcapsular abscess s/p CT-guided drain placement #Subphrenic abscess, R ?Initially patient met SIRS 2 out of 4 with leukocytosis and tachycardia ?Patient underwent multiple surgical procedures including laparoscopic appendectomy on day of admission (12/21/2023), 2 ex laps (12/25/2023 and 01/06/2024), and additional secondary closure of abdomen incision (01/01/2024). ?Multiple blood cultures, urine cultures, sputum cultures, and abdominal wound cultures have come back negative ?Abdomen/pelvis CT on 01/12/2024 showed localized fluid collection on the right lower abdomen consistent with an abscess ?Patient had percutaneous drainage catheter taken out by IR as per general surgeon ?Patient has not been having good oral intake therefore TPN will be continued as per general surgeon -DC'd vancomycin (day 9) and Zosyn (day 8 of second treatment) -WBC 14.8 and still tachycardic -CT abdomen/pelvis (01/18/24) showed Right subphrenic abscess which is very small in thickness, 13 mm and abscess below the liver measures 8.4 x 11.5 x 3.8 cm -IR placed pleural drainage again on 01/20/2024 Plan: ?Recommend to encourage oral intake and advance diet as tolerated. - Recommend titrating down on TPN, currently on TPN at 75/h as patient still not having good oral intake. -Recommend to follow ID recommendations on Antibiotic regimen, currently on meropenem [01/18/2024-] as per Dr. Rubio ?Recommend wound care ?Will continue to monitor for any spiking any fever or elevated WBC #Acute hypoxic respiratory failure #Pleural effusion ?Patient was intubated in the ICU and was successfully extubated on 01/12/2024 ?Chest x-ray on 01/12/2024 showed no pneumonia and no right pleural fluid ?Patient had chest tube taken out by general surgeon -Will assess possibility to take chest tube out ?Checks x-ray showed no pleural fluid Plan: ?Will continue to monitor #Normocytic normochromic anemia ?Hgb 7.5 ?Most likely a component of some blood loss given multiple surgical procedures Plan: ?Recommend to transfuse if hemoglobin less than 7 ?Will continue to monitor #Hypokalemia #Hypomagnesemia #Hyponatremia -Potassium 4, sodium 130, last Mg 1.5 Plan: -Recommend to replete as necessary -Will continue to monitor #ANITHA ?Creatinine 1.32 today Plan: ?Avoid nephrotoxic agents ?Renally dose medications ?Will continue to monitor Thank you for allowing us to be part of the patient's care. Disposition: Patient seen in telemetry, monitoring ADIS's, pain management, and oral intake. Diet: regular and protein supplement GI prophylaxis: protonix DVT prophylaxis: heparin sc Code: Full code Nutritional: TPN Case disclosed with Attending Dr. Raman and My senior Dr. Carey PGY2 [address] Dr[address] Akers PGY3. Cortez Harp PGY1 Attending Provider Attestation/Addendum I reviewed labs, imaging, EKG, home medications and prior available records. Face to face evaluation was performed by me. I have personally examined the patient and discussed assessment and plan with the IM team. I reviewed the resident note and agree with the plan with exceptions as below. Sepsis secondary to acute appendicitis: Status post appendectomy. Complicated by small bowel perforation and pelvic abscess, peritonitis status post ex lap. Status post [address] with wound VAC. The drains were removed however WBC was uptrending. Ordered CT abdomen/pelvis that showed large abscess versus fluid collection below the liver. Consulted IR for drainage and he is status post a new drainage on 01/19. Discussed with general surgery: Broadened antibiotics to meropenem. ID is following. Trend WBC: Downtrending. On 01/20: The drainage is not having any output. Concern for clogging. Will discussed with IR and general surgery. Poor oral intake: In the setting of multiple abdominal surgeries/drains, active abdominal infection and prolonged hospitalization. He is still not meeting his nutritional requirements. Continue TPN. Continue diet supplements as tolerated. Right-sided pleural fluid: Status post chest tube insertion: Ordered repeat x- ray that showed resolution of the pleural effusion. Removed the chest tube.
--- NOTE | 2024-01-21 10:31 | PC.SS ---
Rounding: Pending ID reccs, general sx reccs. Pt receiving IV ABX and will need HH upon DC for Wound Vac and possible need IV ABX, Team Aware
[2024-01-21] MEDS: KETOROLAC INJ 30 MG/ML VIAL 15 MG IVP (13:24)
--- NOTE | 2024-01-21 15:58 | ESPR_ITS ---
Addendum Progress Note Addendum Date of report being addended: 01/22/24 Narrative: I reviewed labs, imaging, EKG, home medications and prior available records. Face to face evaluation was performed by me. I have personally examined the patient and discussed assessment and plan with the IM team. I reviewed the resident note and agree with the plan with exceptions as below. Sepsis secondary to acute appendicitis: Status post appendectomy. Complicated by small bowel perforation and pelvic abscess, peritonitis status post ex lap. Status post [address] with wound VAC. The drains were removed however WBC was uptrending. Ordered CT abdomen/pelvis that showed large abscess versus fluid collection below the liver. Consulted IR for drainage and he is status post a new drainage on 01/19. Discussed with general surgery: Broadened antibiotics to meropenem. ID is following. Trend WBC: Downtrending. On 01/20: The drainage is not having any output. Concern for clogging. Discussed with general surgery: Patient may need catheter drainage at the bigger size. Will touch base with IR to see if we can do that. He may need repeat CT abdomen prior to the procedure. Poor oral intake: In the setting of multiple abdominal surgeries/drains, active abdominal infection and prolonged hospitalization. He is still not meeting his nutritional requirements. Continue TPN. Continue diet supplements as tolerated. Right-sided pleural fluid: Status post chest tube insertion: Ordered repeat x- ray that showed resolution of the pleural effusion. Removed the chest tube.
--- NOTE | 2024-01-21 18:08 | PD.SURPROG ---
Documentation for date of: 01/21/24 Subjective Subjective Brief History: As above Narrative: The patient is still tachycardic even after drainage of the collection from the abdomen Exam Vital Signs Temp Pulse Resp BP Pulse Ox O2 Del Method O2 Flow Rate 98.3 F 112 H 23 H 144/86 H 96 Room Air 3 01/21/24 12:00 01/21/24 16:00 01/21/24 12:00 01/21/24 12:00 01/21/24 12:00 01/21/24 12:00 01/20/24 16:00 FiO2 30 01/20/24 16:00 Vital signs revealed no fever but pulse rate around 112 Routine Abdominal Exam Comments: Abdominal examination is negative Results Results: Laboratory Laboratory Narrative: WBC remains unchanged Assessment & Plan Assessment Additional comments: Impression: There is no drainage from the percutaneous catheter placed by Dr. Caceres Plan Plan: I will wait for Dr. Caceres to see if he wants to put a larger catheter. He will have to rescan the patient to make the decision. Procedures Procedures Exploratory laparotomy and drainage of the subcutaneous infection and wound VAC application
[2024-01-21] MEDS: MELATONIN 3 MG TABLET PO (21:38)
[2024-01-22] VITALS (18 sets, daily range): BP systolic 119–144; BP diastolic 81–90; PULSE 102–123; RESP 15–25; TEMP 36.1–37.1; O2SAT 95–99
[2024-01-22] MEDS: HYDROcodone/APAP 5/325 TABLET 1 TAB PO ×3 (05:54→18:13)
[2024-01-22] MEDS: MEROPENEM INJ 1,000 MG in SODIUM CHLORIDE 0.9% (P) 50 ML 100 MG IV ×3 (05:54→21:12)
[2024-01-22 05:55] LABS: Basophils % (Auto) 0 % (0-2.5); Eosinophils # (Auto) 0.1 Thou/mm3 (0.0-0.5); Eosinophils % (Auto) 1 % (0-10); Hematocrit 23.1 % (41.0-53.0); Immature Granulocytes % (Auto) 1 % (0-0); Immature Granulocytes Auto 0.18 Thou/mm3 (0.00-0.00); Lymphocytes # (Auto) 1.9 Thou/mm3 (1.0-4.8); Lymphocytes % (Auto) 12 % (10-50); Mean Corpuscular HGB Conc 33.8 g/dl (31.0-37.0); Mean Corpuscular Hemoglobin 28.6 pg (25.0-35.0); Mean Corpuscular Volume 85 fL (80-100); Monocytes # (Auto) 1.2 Thou/mm3 (0.0-0.8); Monocytes % (Auto) 7 % (0-12); Neutrophils # (Auto) 13.4 Thou/mm3 (1.8-7.7); Neutrophils % (Auto) 80 % (37-80); Nucleated Red Blood Cell % 0 /100 WBC (0); Platelet Count 523 Thou/mm3 (140-440); RDW Standard Deviation 43.2 fL (35.1-43.9); Red Blood Count 2.73 Miln/mm3 (4.50-5.90); White Blood Count 16.8 Thou/mm3 (3.8-10.6)
[2024-01-22 05:56] LABS: Hemoglobin 7.8 g/dL (13.5-16.0)
[2024-01-22 06:13] LABS: Alanine Aminotransferase 14 U/L (10-49); Albumin, Serum 3.5 gm/dL (3.5-5.0); Albumin/Globulin Ratio 0.9 (1.2-2.2); Alkaline Phosphatase 150 U/L (46-116); Anion Gap 5 (7-16); Aspartate Amino Transferase 17 U/L (0-34); BUN/Creatinine Ratio 26 Ratio (12-20); Bilirubin,Total 0.3 mg/dL (0.3-1.2); Blood Urea Nitrogen 34 mg/dL (9-23); Calcium 8.2 mg/dL (8.3-10.6); Calcium (Corrected) 8.6 mg/dL (8.5-10.1); Carbon Dioxide 23.6 mMol/L (20.0-31.0); Chloride 101 mMol/L (98-107); Creatinine (Component) 1.3 mg/dL (0.6-1.3); Estimated Creatinine Clearance 72.2 mL/min (>60); Glucose 122 mg/dL (74-106); Magnesium 1.8 mg/dL (1.6-2.6); Osmolality,Calculated 269 (275-295); Sodium 130 mMol/L (136-145); Total Protein 7.5 gm/dL (5.7-8.2); eGFR > 60 See Note
[2024-01-22] MEDS: INSULIN LISPRO (AdmeLOG) 1 UNIT/0.01 ML UNIT SC ×4 (07:43→21:10)
[2024-01-22] MEDS: INSULIN GLARGINE (Lantus) 5 UNIT/0.05 ML (PER 5 UNITS) 10 UNIT SC (09:33)
[2024-01-22] MEDS: PANTOPRAZOLE INJ 40 MG VIAL IVP (09:34)
[2024-01-22] MEDS: HEPARIN SOD INJ 5000 UNIT/ML VIAL SC ×2 (09:35→21:11)
[2024-01-22] MEDS: amLODIPine BESYLATE 5 MG TABLET 10 MG PO (09:35)
--- NOTE | 2024-01-22 10:17 | PC.SS ---
Rounding: Per Dr. Rubio note: Pt still Tachycardia, pending Dr. Briceño for re-scan for possible larger catheter
--- NOTE | 2024-01-22 11:16 | XR_ITS ---
Examination: CT-guided placement Percutaneous abscess drainage catheter in right lower abdominal abscess CT abdomen without intravenous contrast Date and time of procedure: January 22, 2024 1355 hours Comparison January 20, 2024 INDICATIONS: Persistent abdominal pain and fever with leukocytosis, placement of larger abscess drainage catheter into the abdominal abscess today Informed consent provided. A timeout was completed verifying correct patient, procedure, site and positioning. Technique: Axial 3 mm sections were obtained for localization of the abscess with abscess drainage catheter Appropriate area is marked. The patient's site was prepped and draped in sterile fashion Maximal sterile barrier technique utilized, including hand hygiene Local anesthesia was obtained with 1% lidocaine. Low dose protocols were performed. One or more of the following dose reduction techniques were used; automated exposure control, adjustment of the mA and/or KV according to patient size, use of iterative reconstruction technique. 0.35 wire guide is introduced through the existing catheter followed by dilators and placement of a larger 10 [place] catheter in the abscess collection, purulent material noticed draining into the section today Patient appears in stable condition during this procedure. At completion of the procedure, the patient is in satisfactory condition. Estimated blood loss 2 cc Complete pathology report to follow. Impression: Successful placement larger abscess drainage catheter in the right lower abdominal abscess
--- NOTE | 2024-01-22 11:51 | ESPR_ITS ---
<Statement entered by Chery Akers DO - 01/22/24 17:56> Senior attestation: Patient was examined and case was reviewed with team including attending physician. Note reviewed, I agree with most of its contents and agree with the patient's care. Chery Akers DO PGY-3 <Statement entered by Cr Carey MD - 01/22/24 17:54> Senior Resident Attestation: I supervised/discussed management plan with sports team marketing intern physician Dr. Goncalves, and was involved in the care of this patient. I personally saw and examined the patient and discussed the assessment and plan with the entire medicine team, including my attending. I agree with the assessment and plan as documented. General surgery will discuss with IR further management of his drain since it has minimal output. We will continue following the patient. Patient's care was discussed with attending physician, Dr. Raman. Cr Carey MD PGY-2. Documentation for date of: 01/22/24 Subjective Subjective Interval history: Patient was seen at bedside this morning. No overnight events. Patient was stated that he still has some left upper quadrant pain and that he developed a rash on his inner thighs. His pleural drainage is not draining any fluid at this time and general surgeon Dr. Rubio will speak with IR for possible change of drain his size and possible CT imaging of the abdomen. No other complaints at this time. Exam Vital Signs Temp Pulse Resp BP Pulse Ox O2 Del Method O2 Flow Rate 98.1 F 118 H 15 144/87 H 97 Room Air 3 01/22/24 11:49 01/22/24 11:49 01/22/24 11:49 01/22/24 11:49 01/22/24 11:49 01/21/24 16:00 01/20/24 16:00 FiO2 30 01/20/24 16:00 Narrative Exam General: A/O x3, no acute distress, resting in bed Eyes: PERRL, EOMI. Anicteric, vision grossly intact. Ears: No ear pain, no ear discharge, Hearing grossly intact. Nose: No nasal discharge. Mouth/Throat: Dry mucous membranes, no redness, no lesions. Neck: Neck supple, non-tender, no cervical lymphadenopathy. Lungs: Clear KYA to auscultation and percussion, No accessory muscle use. Cardio: Normal S1/S2, regular rhythm, no murmurs, no JVD Abdomen: Soft, Wound VAC in place with clean margins and healthy granulation tissue, tenderness in LUQ, no palpable masses, peristalsis present, no guarding or rebound. Pleural drainage in place with minimal to no drainage in bag. Extremities: Symmetrical, no significant deformities, no peripheral edema , non-tender, peripheral pulses presents. Skin: no lesions, warm to touch. non raised hyperpigmented rash in KYA inner thighs Neuro: No focal neurological deficits. motor and sensory intact Psych: Cooperative, appropriate mood and effect. Objective Labs 01/27/24 05:39 01/27/24 05:39 Labs: Laboratory Results - last 24 hr 01/22/24 05:06 WBC 16.8 H RBC 2.73 L Hgb 7.8 L Hct 23.1 L MCV 85 MCH 28.6 MCHC 33.8 RDW Std Deviation 43.2 Plt Count 523 H D Neut % (Auto) 80 Lymph % (Auto) 12 [place] % (Auto) 7 Eos % (Auto) 1 Baso % (Auto) 0 Neut # (Auto) 13.4 H Lymph # (Auto) 1.9 [place] # (Auto) 1.2 H Eos # (Auto) 0.1 Baso # (Auto) 0.0 Immature Gran # (Auto) 0.18 H Absolute Nucleated RBC 0.00 Immature Gran % 1 H Nucleated RBC % 0 Sodium 130 L Potassium 4.0 Chloride 101 Carbon Dioxide 23.6 Anion Gap 5 L BUN 34 H Creatinine 1.3 Estim Creat Clear Calc 72.2 eGFR > 60 BUN/Creatinine Ratio 26 H Glucose 122 H Calculated Osmolality 269 L Calcium 8.2 L Corrected Calcium 8.6 Magnesium 1.8 Total Bilirubin 0.3 AST 17 ALT 14 Alkaline Phosphatase 150 H Total Protein 7.5 Albumin 3.5 Globulin 4.0 H Albumin/Globulin Ratio 0.9 L ABG Interpretation ABG results: 12/21/23 12/24/23 12/25/23 15:50 19:45 02:34 ABG pH 7.40 7.23 L D ABG pCO2 40 56 H D ABG pO2 134 H 229 H D ABG HCO3 25 24 ABG O2 Saturation 99 H 100 H ABG Base Excess 0 -5 L VBG pH 7.48 VBG pCO2 35 L VBG pO2 56 VBG Base Excess 2 1012/25/23 12/26/23 04:54 10:48 06:56 ABG pH 7.25 L 7.33 L 7.34 L ABG pCO2 52 H 45 43 ABG pO2 93 D 99 95 ABG HCO3 23 23 23 ABG O2 Saturation 97 98 98 ABG Base Excess -5 L -3 -2 VBG pH VBG pCO2 VBG pO2 VBG Base Excess 12/26/23 01/05/24 01/06/24 10:15 08:13 13:50 ABG pH 7.36 7.37 7.42 ABG pCO2 41 38 30 L ABG pO2 87 75 L 90 ABG HCO3 23 22 19 L ABG O2 Saturation 98 96 98 ABG Base Excess -2 -3 -5 L VBG pH VBG pCO2 VBG pO2 VBG Base Excess 01/06/24 01/07/24 01/07/24 21:44 00:30 04:35 ABG pH 7.12 L* D 7.22 L D 7.27 L ABG pCO2 69 H D 52 H D 45 ABG pO2 261 H D 161 H D 209 H D ABG HCO3 22 21 21 ABG O2 Saturation 100 H 99 H 100 H ABG Base Excess -7 L -6 L -6 L VBG pH VBG pCO2 VBG pO2 VBG Base Excess 01/08/24 01/09/24 01/09/24 04:50 04:14 15:49 ABG pH 7.24 L 7.26 L 7.27 L ABG pCO2 47 50 H 51 H ABG pO2 97 D 97 90 ABG HCO3 20 22 23 ABG O2 Saturation 98 98 97 ABG Base Excess -7 L -5 L -4 L VBG pH VBG pCO2 VBG pO2 VBG Base Excess 01/10/24 01/11/24 01/12/24 04:52 04:35 05:24 ABG pH 7.33 L 7.34 L 7.31 L ABG pCO2 43 43 49 H ABG pO2 101 99 106 ABG HCO3 23 23 25 ABG O2 Saturation 98 98 98 ABG Base Excess -3 -3 -2 VBG pH VBG pCO2 VBG pO2 VBG Base Excess Quality Measures Quality Measures VTE prophylaxis Assessment & Plan Assessment Current Active Medications: Generic Name Dose Route Start Last Admin Trade Name Freq PRN Reason Stop Dose Admin Hydrocodone Bitart/Acetaminophen 1 tab 01/22/24 07:58 Hydrocodone/Apap 5/325 Tablet PO 01/25/24 09:46 Q6H PRN PAIN SCALE 4-10(Mod-Sev Amlodipine Besylate 10 mg 01/13/24 12:30 01/22/24 09:35 Amlodipine Besylate 5 Mg Tablet PO 02/12/24 12:29 10 mg QDAY TAL Administration Dextrose 25 ml 01/04/24 14:37 Dextrose 50%-Water Inj 50 Ml Syringe IV 02/03/24 14:36 Q15MIN PRN BG 50-70 responsive npo pt Dextrose 50 ml 01/04/24 14:37 Dextrose 50%-Water Inj 50 Ml Syringe IV 02/03/24 14:36 Q15MIN PRN BG <50 OR BG <70 & pt unresponsive Glucagon 1 mg 01/07/24 11:34 Glucagon Inj 1 Mg Vial IM Q15MIN PRN BG <70, and no IV access Heparin Sodium (Porcine) 5,000 unit 01/11/24 09:00 01/22/24 09:35 Heparin Sod Inj 5000 Unit/Ml Vial SC 01/25/24 08:59 5,000 unit Q12HR TAL Administration Meropenem 1,000 mg/ Sodium 50 mls @ 100 mls/hr 01/18/24 22:00 01/22/24 05:54 Chloride IV 01/25/24 21:59 100 mls/hr Q8HR TAL Administration Protocol Amino Acids 1,000 mls @ 75 mls/hr 01/22/24 05:16 Tpn-Outsourced IV 01/22/24 18:35 .[id number] [facility] Protocol Calcium Gluconate/Sodium Chloride 1,000 mg in 50 mls @ 50 mls/hr 01/22/24 11:00 Calcium Gluc/Ns 1000mg Ivpb IV 01/22/24 11:59 X1 ONE Magnesium Sulfate 50 mls @ 25 mls/hr 01/22/24 13:00 Magnesium Sulfate Ivpb IV 01/22/24 14:59 X1 ONE Multivitamins/Minerals 10 ml/ 2,010 mls @ 75 mls/hr 01/22/24 18:36 Amino Acids IV 01/23/24 18:35 .Q24H [facility] Insulin Glargine 10 unit 01/04/24 14:45 01/22/24 09:33 Insulin Glargine (Lantus) 5 Unit/0.05 Ml (Per 5 Units) SC 02/03/24 14:44 10 unit QDAY TAL Administration Insulin Human Lispro 0 unit 01/20/24 17:00 01/22/24 07:43 Insulin Lispro (Admelog) 1 Unit/0.01 Ml Unit SC 02/19/24 05:59 1 unit ACHS TAL Administration Protocol Labetalol HCl 10 mg 01/05/24 19:16 01/13/24 13:24 Labetalol Inj 5 Mg/Ml Vial 20 Ml IVP 02/04/24 19:29 10 mg Q6H PRN Administration SBP >170, DBP>110 Melatonin 3 mg 12/28/23 21:00 01/21/24 21:38 Melatonin 3 Mg Tablet PO 01/27/24 20:59 3 mg HS TAL Administration Pantoprazole Sodium 40 mg 01/01/24 09:00 01/22/24 09:34 Pantoprazole Inj 40 Mg Vial IVP 01/31/24 08:59 40 mg QDAY TAL Administration Protocol Plan 43-year-old male with no significant past medical history who was admitted to the hospital by general surgery on 12/21/2023 for acute perforated appendicitis with multiple postop complications. #Sepsis likely secondary to acute perforated appendicitis #Acute perforated appendicitis #Small bowel perforation s/p ileostomy #Peritonitis #Subcapsular abscess s/p CT-guided drain placement #Subphrenic abscess, R ?Initially patient met SIRS 2 out of 4 with leukocytosis and tachycardia ?Patient underwent multiple surgical procedures including laparoscopic appendectomy on day of admission (12/21/2023), 2 ex laps (12/25/2023 and 01/06/2024), and additional secondary closure of abdomen incision (01/01/2024). ?Multiple blood cultures, urine cultures, sputum cultures, and abdominal wound cultures have come back negative ?Abdomen/pelvis CT on 01/12/2024 showed localized fluid collection on the right lower abdomen consistent with an abscess ?Patient had percutaneous drainage catheter taken out by IR as per general surgeon ?Patient has not been having good oral intake therefore TPN will be continued as per general surgeon -DC'd vancomycin (day 9) and Zosyn (day 8 of second treatment) -WBC 16.8 (uptrended) and still tachycardic -CT abdomen/pelvis (01/18/24) showed Right subphrenic abscess which is very small in thickness, 13 mm and abscess below the liver measures 8.4 x 11.5 x 3.8 cm -IR placed pleural drainage again on 01/20/2024 Plan: ?Recommend to encourage oral intake and advance diet as tolerated. - Recommend titrating down on TPN, currently on TPN at 75/h as patient still not having good oral intake. -Recommend to follow ID recommendations on Antibiotic regimen, currently on meropenem [01/18/2024-] as per Dr. Rubio -Recommend flushing pleural drainage ?Recommend wound care ?Will continue to monitor for any spiking any fever or elevated WBC #Acute hypoxic respiratory failure #Pleural effusion ?Patient was intubated in the ICU and was successfully extubated on 01/12/2024 ?Chest x-ray on 01/12/2024 showed no pneumonia and no right pleural fluid ?Patient had chest tube taken out by general surgeon -Will assess possibility to take chest tube out ?Checks x-ray 01/15/24 showed no pleural fluid Plan: ?Will continue to monitor #Rash -Patient developed an inner thigh rash most likely due to friction Plan: -Benadryl topical x1 #Normocytic normochromic anemia ?Hgb 7.8 ?Most likely a component of some blood loss given multiple surgical procedures Plan: ?Recommend to transfuse if hemoglobin less than 7 ?Will continue to monitor #Hypokalemia #Hypomagnesemia #Hyponatremia -Potassium 4, sodium 130, Mg 1.8 Plan: -Recommend to replete as necessary -Will continue to monitor #ANITHA ?Creatinine 1.3 today Plan: ?Avoid nephrotoxic agents ?Renally dose medications ?Will continue to monitor Thank you for allowing us to be part of the patient's care. Disposition: Patient seen in telemetry, monitoring ADIS's, pain management, and oral intake. Diet: regular and protein supplement GI prophylaxis: protonix DVT prophylaxis: heparin sc Code: Full code Nutritional: TPN Case disclosed with Attending Dr. Raman and My senior Dr. Carey PGY2 [address] Dr[address] Akers PGY3. Cortez Harp PGY1 Attending Provider Attestation/Addendum I reviewed labs, imaging, EKG, home medications and prior available records. Face to face evaluation was performed by me. I have personally examined the patient and discussed assessment and plan with the IM team. I reviewed the resident note and agree with the plan with exceptions as below. Please see my addendum in the separate note for the date of 01/21.
[2024-01-22] MEDS: [UNRECOGNIZED DRUG - NUTRITION] 75 ML IV (12:05)
[2024-01-22] MEDS: CALCIUM GLUC/NS 1000MG IVPB 1,000 MG/50 ML BAG 50 MG IV (12:13)
[2024-01-22] MEDS: Magnesium Sulfate 2 GM Ivpb 50 ML IV (12:13)
--- NOTE | 2024-01-22 13:43 | XR_ITS ---
Examination: CT abdomen and pelvis without contrast. Coronal 3-D reconstructions. Sagittal 2-D reconstructions. Date and time of exam:January 22, 2024 1346 hours Comparison January 18, 2024 INDICATIONS: Abscess collection post appendectomy, post abscess drainage catheter January 18, 2024 CTDI: vol (mGy): 8.69 DLP: (mGycm): 521 Technique: Axial images of the abdomen have been obtained, 3 mm slice thickness Intravenous contrast material has not been administered. Low dose protocols were performed. One or more of the following dose reduction techniques were used; automated exposure control, adjustment of the mA and/or KV according to patient size, use of iterative reconstruction technique. Findings: Abscess collection below the liver is again depicted The drainage catheter is present in the abscess collection but could be advanced for optimal drainage Abdomen study is otherwise unchanged IMPRESSION: Recommend repositioning the abscess drainage catheter
[2024-01-22] MEDS: fentaNYL CIT INJ 50 mCg/ML AMP 2ML 75 MCG IVP (14:22)
[2024-01-22] MEDS: LIDOCAINE INJ PF 1% 30 ML VIAL 4 ML INFL (14:33)
[2024-01-22] MEDS: DiphenhydrAMINE/ZN ACET 2% CR 30 GM TUBE TOP (21:10)
[2024-01-22] MEDS: MELATONIN 3 MG TABLET PO (21:13)
[2024-01-22] MEDS: ACETAMINOPHEN 325 MG TABLET 650 MG PO (21:15)
[2024-01-22] MEDS: ONDANSETRON INJ 2 MG/ML INJ 2 ML 4 MG IV (22:42)
[2024-01-23] VITALS (13 sets, daily range): BP systolic 115–145; BP diastolic 81–95; PULSE 100–127; RESP 17–20; TEMP 36.3–38.3; O2SAT 95–97; BMI 32.1; BMI 13.0
[2024-01-23] MEDS: HYDROcodone/APAP 5/325 TABLET 1 TAB PO ×4 (00:33→20:31)
--- NOTE | 2024-01-23 04:22 | PC.NURSE ---
At aprox 0410 got called into room by patient, pt stated that bottom area of central line dressing was wet. Upon examination of central line, line looked longer than initial assessment, TPN stopped, charge nurse notified, and MD hospitalist called and notified, MD to come up to assess. BG-127 level checked on pt, peripheral IV started by special agent in charge to right wrist. Orders placed by MD.
[2024-01-23] MEDS: ACETAMINOPHEN 325 MG TABLET 650 MG PO (05:17)
[2024-01-23] MEDS: MEROPENEM INJ 1,000 MG in SODIUM CHLORIDE 0.9% (P) 50 ML 100 MG IV ×3 (05:18→20:31)
[2024-01-23 06:01] LABS: Basophils % (Auto) 0 % (0-2.5); Eosinophils % (Auto) 0 % (0-10); Hematocrit 24.2 % (41.0-53.0); Hemoglobin 8.1 g/dL (13.5-16.0); Immature Granulocytes % (Auto) 1 % (0-0); Immature Granulocytes Auto 0.09 Thou/mm3 (0.00-0.00); Lymphocytes # (Auto) 1.9 Thou/mm3 (1.0-4.8); Lymphocytes % (Auto) 13 % (10-50); Mean Corpuscular HGB Conc 33.5 g/dl (31.0-37.0); Mean Corpuscular Hemoglobin 27.9 pg (25.0-35.0); Mean Corpuscular Volume 83 fL (80-100); Monocytes # (Auto) 1.2 Thou/mm3 (0.0-0.8); Monocytes % (Auto) 8 % (0-12); Neutrophils # (Auto) 11.6 Thou/mm3 (1.8-7.7); Neutrophils % (Auto) 78 % (37-80); Nucleated Red Blood Cell % 0 /100 WBC (0); Platelet Count 507 Thou/mm3 (140-440); RDW Standard Deviation 42.2 fL (35.1-43.9); White Blood Count 14.9 Thou/mm3 (3.8-10.6)
[2024-01-23 06:22] LABS: Alanine Aminotransferase 14 U/L (10-49); Albumin, Serum 3.5 gm/dL (3.5-5.0); Albumin/Globulin Ratio 0.9 (1.2-2.2); Alkaline Phosphatase 143 U/L (46-116); Anion Gap 6 (7-16); Aspartate Amino Transferase 19 U/L (0-34); BUN/Creatinine Ratio 28 Ratio (12-20); Bilirubin,Total 0.3 mg/dL (0.3-1.2); Blood Urea Nitrogen 36 mg/dL (9-23); Calcium 8.4 mg/dL (8.3-10.6); Calcium (Corrected) 8.8 mg/dL (8.5-10.1); Chloride 99 mMol/L (98-107); Creatinine (Component) 1.3 mg/dL (0.6-1.3); Estimated Creatinine Clearance 72.2 mL/min (>60); Glucose 120 mg/dL (74-106); Osmolality,Calculated 268 (275-295); Potassium 3.6 mMol/L (3.4-5.1); Sodium 129 mMol/L (136-145); Total Protein 7.5 gm/dL (5.7-8.2); eGFR > 60 See Note
[2024-01-23] MEDS: HEPARIN SOD INJ 5000 UNIT/ML VIAL SC ×2 (08:35→20:31)
[2024-01-23] MEDS: amLODIPine BESYLATE 5 MG TABLET 10 MG PO (08:36)
[2024-01-23] MEDS: PANTOPRAZOLE INJ 40 MG VIAL IVP (08:36)
--- NOTE | 2024-01-23 10:24 | PD.IDPROG ---
Subjective Subjective Interval history: 4.5 d of merrem noted so far. cx neg, so may have been sterilized by prior rx or may be a sterile abscess. Exam Vital Signs Temp Pulse Resp BP Pulse Ox O2 Del Method O2 Flow Rate 98.1 F 126 H 19 132/86 H 97 Room Air 3 01/23/24 07:00 01/23/24 08:36 01/23/24 07:00 01/23/24 08:36 01/23/24 07:00 01/23/24 07:00 01/22/24 14:40 FiO2 30 01/20/24 16:00 Narrative Exam talking now. abd benign. drains and cx noted. neg stains noted too. looks and feels improved. has been here for >1 mo now Objective - Internal Medicine Labs 01/23/24 04:25 01/23/24 04:25 Labs: Laboratory Results - last 24 hr 01/23/24 04:25 WBC 14.9 H RBC 2.90 L Hgb 8.1 L Hct 24.2 L MCV 83 MCH 27.9 MCHC 33.5 RDW Std Deviation 42.2 Plt Count 507 H Neut % (Auto) 78 Lymph % (Auto) 13 [place] % (Auto) 8 Eos % (Auto) 0 Baso % (Auto) 0 Neut # (Auto) 11.6 H Lymph # (Auto) 1.9 [place] # (Auto) 1.2 H Eos # (Auto) 0.0 Baso # (Auto) 0.0 Immature Gran # (Auto) 0.09 H Absolute Nucleated RBC 0.00 Immature Gran % 1 H Nucleated RBC % 0 Sodium 129 L Potassium 3.6 Chloride 99 Carbon Dioxide 24.0 Anion Gap 6 L BUN 36 H Creatinine 1.3 Estim Creat Clear Calc 72.2 eGFR > 60 BUN/Creatinine Ratio 28 H Glucose 120 H Calculated Osmolality 268 L Calcium 8.4 Corrected Calcium 8.8 Magnesium 2.0 Total Bilirubin 0.3 AST 19 ALT 14 Alkaline Phosphatase 143 H Total Protein 7.5 Albumin 3.5 Globulin 4.0 H Albumin/Globulin Ratio 0.9 L ABG Interpretation ABG results: 12/21/23 12/24/23 12/25/23 15:50 19:45 02:34 ABG pH 7.40 7.23 L D ABG pCO2 40 56 H D ABG pO2 134 H 229 H D ABG HCO3 25 24 ABG O2 Saturation 99 H 100 H ABG Base Excess 0 -5 L VBG pH 7.48 VBG pCO2 35 L VBG pO2 56 VBG Base Excess 2 12/25/23 12/25/23 12/26/23 04:54 10:48 06:56 ABG pH 7.25 L 7.33 L 7.34 L ABG pCO2 52 H 45 43 ABG pO2 93 D 99 95 ABG HCO3 23 23 23 ABG O2 Saturation 97 98 98 ABG Base Excess -5 L -3 -2 VBG pH VBG pCO2 VBG pO2 VBG Base Excess 12/26/23 01/05/24 01/06/24 10:15 08:13 13:50 ABG pH 7.36 7.37 7.42 ABG pCO2 41 38 30 L ABG pO2 87 75 L 90 ABG HCO3 23 22 19 L ABG O2 Saturation 98 96 98 ABG Base Excess -2 -3 -5 L VBG pH VBG pCO2 VBG pO2 VBG Base Excess 01/06/24 01/07/24 01/07/24 21:44 00:30 04:35 ABG pH 7.12 L* D 7.22 L D 7.27 L ABG pCO2 69 H D 52 H D 45 ABG pO2 261 H D 161 H D 209 H D ABG HCO3 22 21 21 ABG O2 Saturation 100 H 99 H 100 H ABG Base Excess -7 L -6 L -6 L VBG pH VBG pCO2 VBG pO2 VBG Base Excess 01/08/24 01/09/24 01/09/24 04:50 04:14 15:49 ABG pH 7.24 L 7.26 L 7.27 L ABG pCO2 47 50 H 51 H ABG pO2 97 D 97 90 ABG HCO3 20 22 23 ABG O2 Saturation 98 98 97 ABG Base Excess -7 L -5 L -4 L VBG pH VBG pCO2 VBG pO2 VBG Base Excess 01/10/24 01/11/24 01/12/24 04:52 04:35 05:24 ABG pH 7.33 L 7.34 L 7.31 L ABG pCO2 43 43 49 H ABG pO2 101 99 106 ABG HCO3 23 23 25 ABG O2 Saturation 98 98 98 ABG Base Excess -3 -3 -2 VBG pH VBG pCO2 VBG pO2 VBG Base Excess Assessment & Plan A&P Narrative abd perforation delayed wound closure done 12/31/23 dm II. a1c not too bad ckd, marginally abnormal at times merrem will end on wednesday 01/24. if he remains ill, maybe he needs a higher level of care or other empiric po rx such as levaquin and flagyl both po. hope we can just stop his abx, but a change to po and home is also reasonable. Time Spent With Patient Time: Total time spent is greater than 50% in coordination of care (as documented) at patient's floor/unit and/or counseling patient:
[2024-01-23] MEDS: DEXTROSE 5%-0.45% NS 1,000 ML 50 ML IV (11:04)
[2024-01-23] MEDS: Magnesium Sulfate 2 GM Ivpb 50 ML IV (12:34)
[2024-01-23] MEDS: POTASSIUM CHL 10 mEq IVPB 10 MEQ/100 ML BAG 50 MEQ IV ×4 (14:34→21:56)
--- NOTE | 2024-01-23 15:21 | ESPR_ITS ---
<Statement entered by Michelle Abrams MD - 01/26/24 17:19> 43-year-old male with no previous medical history admitted for abdominal pain by surgical team and noted to have perforated appendicitis status post surgical intervention on 12/21/2023. Patient noted to have prolonged hospital course with multiple intra-abdominal abscesses and multiple surgical intervention first being laparoscopic appendectomy on 12/21/2023 followed by 2 expiratory laparotomy on 12/25/2023 and 01/06/[address]-guided intra-abdominal drainage requiring TPN. As of now, patient continues to have wound VAC in place and surgical team on board. In addition, patient also on meropenem and continues to have IR guided catheter in place. Furthermore, patient also noted to have acute kidney injury previously with an elevation of creatinine 2.9 however down trended to 1.3. Will continue following the patient with surgical team and recommend continuing meropenem and close hemodynamic monitoring. Appreciate infectious disease input I reviewed above note and agree with findings and plans. I have also personally examined the patient with medicine team and went over assessment and plan with medical team including advertising intern and resident physician. Documentation for date of: 01/23/24 Subjective Subjective Interval history: Patient was seen and examined at bedside. No acute overnight events. His oral intake remains low, his central line fell off during the night and was removed by night team. TPN was discontinued, will discuss further plan of management with general surgery. His abscess drain has minimal drainage overnight. Will continue current management. Exam Vital Signs Temp Pulse Resp BP Pulse Ox O2 Del Method O2 Flow Rate 97.3 F 118 H 18 115/81 96 Room Air 3 01/23/24 10:52 01/23/24 12:00 01/23/24 10:52 01/23/24 10:52 01/23/24 10:52 01/23/24 10:52 01/22/24 14:40 FiO2 30 01/20/24 16:00 Narrative Exam Gen: Well-developed and well-nourished. HEENT: NCAT, PERRLA, EOMI, MMM, anicteric conjunctivae. CVS: normal S1 and S2. RRR. No M/R/G. Resp: CTA B/L. No rhonchi, rales, crackles or wheezing. Abd: soft, non-tender, non-distended. BS+ in all 4 quadrants. Wound VAC in place with clean margins and healthy granulation tissue, no palpable masses. Abscess drainage in place with minimal drainage in bag. MSK: Good ROM in BUE & BLE. No edema or rash. Neuro: CN II-XII grossly intact. Strength 5/5 in BUE & BLE. Alert and oriented x3. Psych: appropriate mood and affect. Objective Labs 01/23/24 04:25 01/23/24 04:25 Labs: Laboratory Results - last 24 hr 01/23/24 04:25 WBC 14.9 H RBC 2.90 L Hgb 8.1 L Hct 24.2 L MCV 83 MCH 27.9 MCHC 33.5 RDW Std Deviation 42.2 Plt Count 507 H Neut % (Auto) 78 Lymph % (Auto) 13 [place] % (Auto) 8 Eos % (Auto) 0 Baso % (Auto) 0 Neut # (Auto) 11.6 H Lymph # (Auto) 1.9 [place] # (Auto) 1.2 H Eos # (Auto) 0.0 Baso # (Auto) 0.0 Immature Gran # (Auto) 0.09 H Absolute Nucleated RBC 0.00 Immature Gran % 1 H Nucleated RBC % 0 Sodium 129 L Potassium 3.6 Chloride 99 Carbon Dioxide 24.0 Anion Gap 6 L BUN 36 H Creatinine 1.3 Estim Creat Clear Calc 72.2 eGFR > 60 BUN/Creatinine Ratio 28 H Glucose 120 H Calculated Osmolality 268 L Calcium 8.4 Corrected Calcium 8.8 Magnesium 2.0 Total Bilirubin 0.3 AST 19 ALT 14 Alkaline Phosphatase 143 H Total Protein 7.5 Albumin 3.5 Globulin 4.0 H Albumin/Globulin Ratio 0.9 L ABG Interpretation ABG results: 12/21/23 12/24/23 12/25/23 15:50 19:45 02:34 ABG pH 7.40 7.23 L D ABG pCO2 40 56 H D ABG pO2 134 H 229 H D ABG HCO3 25 24 ABG O2 Saturation 99 H 100 H ABG Base Excess 0 -5 L VBG pH 7.48 VBG pCO2 35 L VBG pO2 56 VBG Base Excess 2 12/25/23 12/25/23 12/26/23 04:54 10:48 06:56 ABG pH 7.25 L 7.33 L 7.34 L ABG pCO2 52 H 45 43 ABG pO2 93 D 99 95 ABG HCO3 23 23 23 ABG O2 Saturation 97 98 98 ABG Base Excess -5 L -3 -2 VBG pH VBG pCO2 VBG pO2 VBG Base Excess 12/26/23 01/05/24 01/06/24 10:15 08:13 13:50 ABG pH 7.36 7.37 7.42 ABG pCO2 41 38 30 L ABG pO2 87 75 L 90 ABG HCO3 23 22 19 L ABG O2 Saturation 98 96 98 ABG Base Excess -2 -3 -5 L VBG pH VBG pCO2 VBG pO2 VBG Base Excess 01/06/24 01/07/24 01/07/24 21:44 00:30 04:35 ABG pH 7.12 L* D 7.22 L D 7.27 L ABG pCO2 69 H D 52 H D 45 ABG pO2 261 H D 161 H D 209 H D ABG HCO3 22 21 21 ABG O2 Saturation 100 H 99 H 100 H ABG Base Excess -7 L -6 L -6 L VBG pH VBG pCO2 VBG pO2 VBG Base Excess 01/08/24 01/09/24 01/09/24 04:50 04:14 15:49 ABG pH 7.24 L 7.26 L 7.27 L ABG pCO2 47 50 H 51 H ABG pO2 97 D 97 90 ABG HCO3 20 22 23 ABG O2 Saturation 98 98 97 ABG Base Excess -7 L -5 L -4 L VBG pH VBG pCO2 VBG pO2 VBG Base Excess 01/10/24 01/11/24 01/12/24 04:52 04:35 05:24 ABG pH 7.33 L 7.34 L 7.31 L ABG pCO2 43 43 49 H ABG pO2 101 99 106 ABG HCO3 23 23 25 ABG O2 Saturation 98 98 98 ABG Base Excess -3 -3 -2 VBG pH VBG pCO2 VBG pO2 VBG Base Excess Quality Measures Quality Measures VTE prophylaxis Assessment & Plan Assessment Current Active Medications: Generic Name Dose Route Start Last Admin Trade Name Freq PRN Reason Stop Dose Admin Acetaminophen 650 mg 01/22/24 20:49 01/23/24 05:17 Acetaminophen 325 Mg Tablet PO 02/21/24 20:48 650 mg Q6HR PRN Administration PAIN SCALE 1-3 (mild Hydrocodone Bitart/Acetaminophen 1 tab 11/14/24 07:58 01/23/24 15:13 Hydrocodone/Apap 5/325 Tablet PO 01/25/24 09:46 1 tab Q6H PRN Administration PAIN SCALE 4-10(Mod-Sev Amlodipine Besylate 10 mg 01/13/24 12:30 01/23/24 08:36 Amlodipine Besylate 5 Mg Tablet PO 02/12/24 12:29 10 mg QDAY TAL Administration Dextrose 25 ml 01/04/24 14:37 Dextrose 50%-Water Inj 50 Ml Syringe IV 02/03/24 14:36 Q15MIN PRN BG 50-70 responsive npo pt Dextrose 50 ml 01/04/24 14:37 Dextrose 50%-Water Inj 50 Ml Syringe IV 02/03/24 14:36 Q15MIN PRN BG <50 OR BG <70 & pt unresponsive Glucagon 1 mg 01/07/24 11:34 Glucagon Inj 1 Mg Vial IM Q15MIN PRN BG <70, and no IV access Heparin Sodium (Porcine) 5,000 unit 01/11/24 09:00 01/23/24 08:35 Heparin Sod Inj 5000 Unit/Ml Vial SC 01/25/24 08:59 5,000 unit Q12HR TAL Administration Meropenem 1,000 mg/ Sodium 50 mls @ 100 mls/hr 01/18/24 22:00 01/23/24 14:34 Chloride IV 01/25/24 21:59 100 mls/hr Q8HR TAL Administration Protocol Multivitamins/Minerals 10 ml/ 2,010 mls @ 75 mls/hr 01/22/24 18:36 01/23/24 07:41 Amino Acids IV 01/23/24 18:35 Not Given .Q24H TAL Dextrose/Sodium Chloride 1,000 mls @ 50 mls/hr 01/23/24 10:27 01/23/24 11:04 D5-1/2ns IV 02/22/24 10:26 50 mls/hr .Q20H TAL Administration Potassium Chloride 10 meq in 100 mls @ 100 mls/hr 01/23/24 14:00 01/23/24 14:34 Kcl Ivpb IV 01/23/24 17:59 50 mls/hr Q1H TAL Administration Insulin Glargine 10 unit 01/04/24 14:45 01/23/24 08:55 Insulin Glargine (Lantus) 5 Unit/0.05 Ml (Per 5 Units) SC 02/03/24 14:44 Not Given QDAY TAL Insulin Human Lispro 0 unit 01/20/24 17:00 01/23/24 11:17 Insulin Lispro (Admelog) 1 Unit/0.01 Ml Unit SC 02/19/24 05:59 Not Given ACHS [facility] Protocol Labetalol HCl 10 mg 01/05/24 19:16 01/13/24 13:24 Labetalol Inj 5 Mg/Ml Vial 20 Ml IVP 02/04/24 19:29 10 mg Q6H PRN Administration SBP >170, DBP>110 Melatonin 3 mg 12/28/23 21:00 01/22/24 21:13 Melatonin 3 Mg Tablet PO 01/27/24 20:59 3 mg HS TAL Administration Mirtazapine 15 mg 01/23/24 21:00 Mirtazapine 15 Mg Tablet PO 02/22/24 20:59 HS TAL Pantoprazole Sodium 40 mg 01/01/24 09:00 01/23/24 08:36 Pantoprazole Inj 40 Mg Vial IVP 01/31/24 08:59 40 mg QDAY TAL Administration Protocol Plan 43-year-old male with no significant past medical history who was admitted to the hospital by general surgery on 12/21/2023 for acute perforated appendicitis with multiple postop complications. #Sepsis likely secondary to acute perforated appendicitis #Acute perforated appendicitis #Small bowel perforation s/p ileostomy #Peritonitis #Subcapsular abscess s/p CT-guided drain placement #Subphrenic abscess, R ?Initially patient met SIRS 2 out of 4 with leukocytosis and tachycardia ?Patient underwent multiple surgical procedures including laparoscopic appendectomy on day of admission (12/21/2023), 2 ex laps (12/25/2023 and 01/06/2024), and additional secondary closure of abdomen incision (01/01/2024). ?Multiple blood cultures, urine cultures, sputum cultures, and abdominal wound cultures have come back negative ?Abdomen/pelvis CT on 01/12/2024 showed localized fluid collection on the right lower abdomen consistent with an abscess ?Patient had percutaneous drainage catheter taken out by IR as per general surgeon ?Patient has not been having good oral intake therefore TPN will be continued as per general surgeon -DC'd vancomycin (day 9) and Zosyn (day 8 of second treatment) -WBC 16.8 (uptrended) and still tachycardic -CT abdomen/pelvis (01/18/24) showed Right subphrenic abscess which is very small in thickness, 13 mm and abscess below the liver measures 8.4 x 11.5 x 3.8 cm -IR placed pleural drainage again on 01/20/2024 Plan: ?Recommend to encourage oral intake and advance diet as tolerated. -TPN was discontinued due to absence of access, patient still not having good oral intake. -Recommend to follow ID recommendations on Antibiotic regimen, currently on meropenem [01/18/2024-] as per Dr. Rubio -Recommend flushing pleural drainage ?Recommend wound care ?Will continue to monitor for any spiking any fever or elevated WBC #Acute hypoxic respiratory failure #Pleural effusion ?Patient was intubated in the ICU and was successfully extubated on 01/12/2024 ?Chest x-ray on 01/12/2024 showed no pneumonia and no right pleural fluid ?Patient had chest tube taken out by general surgeon -Will assess possibility to take chest tube out ?Checks x-ray 01/15/24 showed no pleural fluid Plan: ?Will continue to monitor #Rash -Patient developed an inner thigh rash most likely due to friction Plan: -Benadryl topical x1 #Normocytic normochromic anemia ?Hgb 7.8 ?Most likely a component of some blood loss given multiple surgical procedures Plan: ?Recommend to transfuse if hemoglobin less than 7 ?Will continue to monitor #Hypokalemia #Hypomagnesemia #Hyponatremia -Potassium 4, sodium 130, Mg 1.8 Plan: -Recommend to replete as necessary -Will continue to monitor #ANITHA ?Creatinine 1.3 today Plan: ?Avoid nephrotoxic agents ?Renally dose medications ?Will continue to monitor Disposition: Patient seen in telemetry, monitoring ADIS's, pain management, and oral intake. Diet: regular and protein supplement. GI prophylaxis: protonix. DVT prophylaxis: heparin sc. Code: Full code. Nutritional: discontinued. Plan of care discussed with attending Dr. Abrams. Cr Carey MD, PGY 2. Thank you for allowing us to be part of the patient's care. Disclaimer: This note was dictated by speech recognition. Minor errors in ceramic maker demonstrator may be present due to voice recognition software.
[2024-01-23] MEDS: ONDANSETRON INJ 2 MG/ML INJ 2 ML 4 MG IV (19:54)
[2024-01-23] MEDS: MELATONIN 3 MG TABLET PO (20:31)
[2024-01-23] MEDS: MIRTAZAPINE 15 MG TABLET PO (20:31)
[2024-01-24] VITALS (14 sets, daily range): BP systolic 131–137; BP diastolic 76–90; PULSE 108–121; RESP 18–24; TEMP 36.6–38; O2SAT 95–97; BMI 32.1
[2024-01-24] MEDS: ONDANSETRON INJ 2 MG/ML INJ 2 ML 4 MG IV (05:19)
[2024-01-24] MEDS: MEROPENEM INJ 1,000 MG in SODIUM CHLORIDE 0.9% (P) 50 ML 100 MG IV ×3 (05:22→21:26)
[2024-01-24] MEDS: HYDROcodone/APAP 5/325 TABLET 1 TAB PO ×3 (05:31→20:12)
[2024-01-24] MEDS: DEXTROSE 5%-0.45% NS 1,000 ML 50 ML IV (06:48)
[2024-01-24] MEDS: PANTOPRAZOLE INJ 40 MG VIAL IVP (08:43)
[2024-01-24] MEDS: amLODIPine BESYLATE 5 MG TABLET 10 MG PO (08:44)
[2024-01-24] MEDS: HEPARIN SOD INJ 5000 UNIT/ML VIAL SC ×2 (08:44→20:13)
--- NOTE | 2024-01-24 12:06 | PD.SURPROG ---
Documentation for date of: 01/24/24 Subjective Subjective Brief History: As above Narrative: The patient is still not eating and is complaining of nausea. He had 3 episodes of vomiting last night according to his son but the nurses are not aware of it Exam Vital Signs Temp Pulse Resp BP Pulse Ox O2 Del Method O2 Flow Rate 97.9 F 108 H 23 H 133/76 H 95 Room Air 3 01/24/24 07:00 01/24/24 08:44 01/24/24 07:00 01/24/24 08:44 01/24/24 07:00 01/24/24 07:00 01/22/24 14:40 FiO2 30 01/20/24 16:00 His vital signs revealed mild tachycardia but otherwise normal Constitutional Constitutional: disheveled Routine Abdominal Exam Comments: Abdominal examination showed slight distention and poor bowel sounds. Ileostomy is draining. Wound drainage was irrigated with saline solution to keep it patent. But there is not a lot of drainage of pus now Assessment & Plan Assessment Additional comments: Impression: Continued malnutrition due to poor appetite Incomplete drainage of the intra-abdominal abscess Plan Plan: We shall watch him over the weekend and may repeat a scan on Friday to see if there is any residual collection. I do not have a recent for him to have nausea. We shall get an x-ray of the abdomen Procedures Procedures Exploratory laparotomy and drainage of the subcutaneous infection and wound VAC application
--- NOTE | 2024-01-24 12:09 | XR_ITS ---
Examination: Abdomen 2 views Technique one AP upright AP portable supine abdomen 2 views Exam date and time: January 24, 2024 at 1302 hrs. Indications: Patient is vomiting with abdominal pain today, history leukocytosis post appendectomy last week with abscess below the right liver, status post placement abscess drainage catheter Findings: Abscess drainage catheter satisfactory position Nonobstructive bowel gas pattern No free air Right ostomy Impression: Nonobstructive bowel gas pattern
[2024-01-24] MEDS: METOPROLOL SUCCINATE XL 25 MG TABCR PO (14:27)
--- NOTE | 2024-01-24 15:12 | ESPR_ITS ---
<Statement entered by Michelle Abrams MD - 01/26/24 17:19> 43-year-old male with no previous medical history admitted for abdominal pain by surgical team and noted to have perforated appendicitis status post surgical intervention on 12/21/2023. Patient noted to have prolonged hospital course with multiple intra-abdominal abscesses and multiple surgical intervention first being laparoscopic appendectomy on 12/21/2023 followed by 2 expiratory laparotomy on 12/25/2023 and 01/06/[address]-guided intra-abdominal drainage requiring TPN. As of now, patient continues to have wound VAC in place and surgical team on board. In addition, patient also on meropenem and continues to have IR guided catheter in place. Furthermore, patient also noted to have acute kidney injury previously with an elevation of creatinine 2.9 however down trended to 1.3. Will continue following the patient with surgical team and recommend continuing meropenem and close hemodynamic monitoring. Appreciate infectious disease input I reviewed above note and agree with findings and plans. I have also personally examined the patient with medicine team and went over assessment and plan with medical team including hr internship and resident physician. Documentation for date of: 01/24/24 Subjective Subjective Interval history: Overnight events, lab/imaging results, and notes reviewed. Patient examined bedside, does not have any complaints today. Drainage noted to be ~50cc this morning. Patient noted to tolerate some PO feeds, will hold off on resuming TPN at this time. Low dose metoprolol succinate added given patient's ongoing tachycardia. Exam Vital Signs Temp Pulse Resp BP Pulse Ox O2 Del Method O2 Flow Rate 99.2 F 108 H 21 H 133/76 H 97 Room Air 3 01/24/24 11:00 01/24/24 14:27 01/24/24 11:00 01/24/24 14:27 01/24/24 11:00 01/24/24 11:00 01/22/24 14:40 FiO2 30 01/20/24 16:00 Narrative Exam General: AOx3, cooperative HEENT: Atraumatic/normocephalic, APRYL Heart: RRR, S1 and S2 without clicks or murmurs Lungs: Clear on auscultation bilaterally Abdomen: Soft, non-tender, abscess drainage in place with ~50cc fluid noted in bag Skin: No edema or rash Neuro: No focal neurological deficits noted however cranial nerves not individually tested Objective Labs 01/23/24 04:25 01/23/24 04:25 Labs: Laboratory Results - last 24 hr 01/24/24 06:04 Magnesium 2.0 ABG Interpretation ABG results: 12/21/23 12/24/23 12/25/23 15:50 19:45 02:34 ABG pH 7.40 7.23 L D ABG pCO2 40 56 H D ABG pO2 134 H 229 H D ABG HCO3 25 24 ABG O2 Saturation 99 H 100 H ABG Base Excess 0 -5 L VBG pH 7.48 VBG pCO2 35 L VBG pO2 56 VBG Base Excess 2 12/25/23 12/25/23 12/26/23 04:54 10:48 06:56 ABG pH 7.25 L 7.33 L 7.34 L ABG pCO2 52 H 45 43 ABG pO2 93 D 99 95 ABG HCO3 23 23 23 ABG O2 Saturation 97 98 98 ABG Base Excess -5 L -3 -2 VBG pH VBG pCO2 VBG pO2 VBG Base Excess 12/26/23 01/05/24 01/06/24 10:15 08:13 13:50 ABG pH 7.36 7.37 7.42 ABG pCO2 41 38 30 L ABG pO2 87 75 L 90 ABG HCO3 23 22 19 L ABG O2 Saturation 98 96 98 ABG Base Excess -2 -3 -5 L VBG pH VBG pCO2 VBG pO2 VBG Base Excess 01/06/24 01/07/24 01/07/24 21:44 00:30 04:35 ABG pH 7.12 L* D 7.22 L D 7.27 L ABG pCO2 69 H D 52 H D 45 ABG pO2 261 H D 161 H D 209 H D ABG HCO3 22 21 21 ABG O2 Saturation 100 H 99 H 100 H ABG Base Excess -7 L -6 L -6 L VBG pH VBG pCO2 VBG pO2 VBG Base Excess 01/08/24 01/09/24 01/09/24 04:50 04:14 15:49 ABG pH 7.24 L 7.26 L 7.27 L ABG pCO2 47 50 H 51 H ABG pO2 97 D 97 90 ABG HCO3 20 22 23 ABG O2 Saturation 98 98 97 ABG Base Excess -7 L -5 L -4 L VBG pH VBG pCO2 VBG pO2 VBG Base Excess 01/10/24 01/11/24 01/12/24 04:52 04:35 05:24 ABG pH 7.33 L 7.34 L 7.31 L ABG pCO2 43 43 49 H ABG pO2 101 99 106 ABG HCO3 23 23 25 ABG O2 Saturation 98 98 98 ABG Base Excess -3 -3 -2 VBG pH VBG pCO2 VBG pO2 VBG Base Excess Quality Measures Quality Measures VTE prophylaxis (heparin subcutaneously) Assessment & Plan Assessment Current Active Medications: Generic Name Dose Route Start Last Admin Trade Name Freq PRN Reason Stop Dose Admin Acetaminophen 650 mg 01/22/24 20:49 01/23/24 05:17 Acetaminophen 325 Mg Tablet PO 02/21/24 20:48 650 mg Q6HR PRN Administration PAIN SCALE 1-3 (mild Hydrocodone Bitart/Acetaminophen 1 tab 01/22/24 07:58 01/24/24 12:13 Hydrocodone/Apap 5/325 Tablet PO 01/25/24 09:46 1 tab Q6H PRN Administration PAIN SCALE 4-10(Mod-Sev Amlodipine Besylate 10 mg 01/13/24 12:30 01/24/24 08:44 Amlodipine Besylate 5 Mg Tablet PO 02/12/24 12:29 10 mg QDAY TAL Administration Dextrose 25 ml 01/04/24 14:37 Dextrose 50%-Water Inj 50 Ml Syringe IV 02/03/24 14:36 Q15MIN PRN BG 50-70 responsive npo pt Dextrose 50 ml 01/04/24 14:37 Dextrose 50%-Water Inj 50 Ml Syringe IV 02/03/24 14:36 Q15MIN PRN BG <50 OR BG <70 & pt unresponsive Glucagon 1 mg 01/07/24 11:34 Glucagon Inj 1 Mg Vial IM Q15MIN PRN BG <70, and no IV access Heparin Sodium (Porcine) 5,000 unit 01/11/24 09:00 01/24/24 08:44 Heparin Sod Inj 5000 Unit/Ml Vial SC 01/25/24 08:59 5,000 unit Q12HR TAL Administration Meropenem 1,000 mg/ Sodium 50 mls @ 100 mls/hr 01/18/24 22:00 01/24/24 14:27 Chloride IV 01/25/24 21:59 100 mls/hr Q8HR TAL Administration Protocol Dextrose/Sodium Chloride 1,000 mls @ 50 mls/hr 01/23/24 10:27 01/24/24 06:48 D5-1/2ns IV 02/22/24 10:26 50 mls/hr .Q20H TAL Administration Insulin Glargine 10 unit 01/04/24 14:45 01/24/24 08:39 Insulin Glargine (Lantus) 5 Unit/0.05 Ml (Per 5 Units) SC 02/03/24 14:44 Not Given QDAY TAL Insulin Human Lispro 0 unit 01/20/24 17:00 01/24/24 12:08 Insulin Lispro (Admelog) 1 Unit/0.01 Ml Unit SC 02/19/24 05:59 Not Given ACHS TAL Protocol Labetalol HCl 10 mg 01/05/24 19:16 01/13/24 13:24 Labetalol Inj 5 Mg/Ml Vial 20 Ml IVP 02/04/24 19:29 10 mg Q6H PRN Administration SBP >170, DBP>110 Melatonin 3 mg 12/28/23 21:00 01/23/24 20:31 Melatonin 3 Mg Tablet PO 01/27/24 20:59 3 mg HS TAL Administration Metoprolol Succinate 25 mg 01/24/24 13:00 01/24/24 14:27 Metoprolol Succinate Xl 25 Mg Tabcr PO 02/23/24 12:59 25 mg QDAY TAL Administration Mirtazapine 15 mg 01/23/24 21:00 01/23/24 20:31 Mirtazapine 15 Mg Tablet PO 02/22/24 20:59 15 mg HS TAL Administration Ondansetron HCl 4 mg 01/23/24 19:23 01/24/24 05:19 Ondansetron Inj 2 Mg/Ml Inj 2 Ml IV 02/22/24 19:22 4 mg Q6HR PRN Administration NAUSEA OR VOMITING Protocol Pantoprazole Sodium 40 mg 01/01/24 09:00 01/24/24 08:43 Pantoprazole Inj 40 Mg Vial IVP 01/31/24 08:59 40 mg QDAY TAL Administration Protocol Plan 43-year-old male with no significant past medical history who was admitted to the hospital by general surgery on 12/21/2023 for acute perforated appendicitis with multiple postop complications. #Sepsis likely secondary to acute perforated appendicitis #Acute perforated appendicitis #Small bowel perforation s/p ileostomy #Peritonitis #Subcapsular abscess s/p CT-guided drain placement #Subphrenic abscess, R ?Initially patient met SIRS 2 out of 4 with leukocytosis and tachycardia ?Patient underwent multiple surgical procedures including laparoscopic appendectomy on day of admission (12/21/2023), 2 ex laps (12/25/2023 and 01/06/2024), and additional secondary closure of abdomen incision (01/01/2024). ?Multiple blood cultures, urine cultures, sputum cultures, and abdominal wound cultures have come back negative ?Abdomen/pelvis CT on 01/12/2024 showed localized fluid collection on the right lower abdomen consistent with an abscess ?Patient had percutaneous drainage catheter taken out by IR as per general surgeon ?Patient has not been having good oral intake therefore TPN will be continued as per general surgeon -DC'd vancomycin (day 9) and Zosyn (day 8 of second treatment) -WBC 16.8 (uptrended) and still tachycardic -CT abdomen/pelvis (01/18/24) showed Right subphrenic abscess which is very small in thickness, 13 mm and abscess below the liver measures 8.4 x 11.5 x 3.8 cm -IR placed pleural drainage again on 01/20/2024 Plan: ?Recommend to encourage oral intake and advance diet as tolerated. -TPN was discontinued due to absence of access, patient still not having good oral intake. -Recommend to follow ID recommendations on Antibiotic regimen, currently on meropenem [01/18/2024-] as per Dr. Rubio -Recommend flushing pleural drainage ?Recommend wound care ?Will continue to monitor for any spiking any fever or elevated WBC #Sinus Tachycardia - Possibly related pain from recent surgeries, less likely infectious - EKGs in december 2023 reveal sinus tachycardia - Will start metoprolol succinate 25mg qday - EKG ordered #Acute hypoxic respiratory failure #Pleural effusion ?Patient was intubated in the ICU and was successfully extubated on 01/12/2024 ?Chest x-ray on 01/12/2024 showed no pneumonia and no right pleural fluid ?Patient had chest tube taken out by general surgeon -Will assess possibility to take chest tube out ?Checks x-ray 01/15/24 showed no pleural fluid Plan: ?Will continue to monitor #Irritant contact dermatitis -Patient developed an inner thigh rash most likely due to friction Plan: -Benadryl topical x1 #Normocytic normochromic anemia ?Hgb 7.8 ?Most likely a component of some blood loss given multiple surgical procedures Plan: ?Recommend to transfuse if hemoglobin less than 7 ?Will continue to monitor #Hypokalemia #Hypomagnesemia #Hyponatremia -Potassium 4, sodium 130, Mg 1.8 Plan: -Recommend to replete as necessary -Will continue to monitor #Acute kidney injury, resolved ?Creatinine improved to 1.3, appears baseline Plan: ?Avoid nephrotoxic agents ?Renally dose medications ?Will continue to monitor Disposition: Patient seen in telemetry, monitoring ADIS's, pain management, and oral intake. Diet: regular and protein supplement. GI prophylaxis: protonix. DVT prophylaxis: heparin sc. Code: Full code. Nutritional: discontinued Patient case discussed with attending physician Dr. Aliza Akers, DO PGY-3
--- NOTE | 2024-01-24 15:21 | EKG_ITS ---
[facility] Test Date: 2024-01-24 Pat Name: MAHOGANY MCCAIN [facility] Gender[facility] Male Reproduction Order Processor: JOHN : 1980 Requested By: Chery Akers Order Number: [id number] Reading MD: Chery Akers Measurements Intervals [place] Rate: 116 P: 19 AK: 110 QRS: 41 QRSD: 90 T: 30 QT: 276 QTc: 385 Interpretive Statements SINUS TACHYCARDIA WITH SHORT [place] INTERVAL ABNORMAL RHYTHM ECG Compared to ECG 12/25/2023 00:23:56 No significant changes /store/S0/[id number]
[2024-01-24] MEDS: MIRTAZAPINE 15 MG TABLET PO (20:12)
[2024-01-24] MEDS: MELATONIN 3 MG TABLET PO (20:13)
[2024-01-24] MEDS: ACETAMINOPHEN 325 MG TABLET 650 MG PO (23:49)
[2024-01-25] VITALS (15 sets, daily range): BP systolic 126–143; BP diastolic 82–92; PULSE 111–129; RESP 13–20; TEMP 36.7–37.9; O2SAT 94–97; BMI 32.1
[2024-01-25] MEDS: DEXTROSE 5%-0.45% NS 1,000 ML 50 ML IV (03:41)
[2024-01-25] MEDS: MEROPENEM INJ 1,000 MG in SODIUM CHLORIDE 0.9% (P) 50 ML 100 MG IV ×2 (05:44→13:28)
[2024-01-25] MEDS: HYDROcodone/APAP 5/325 TABLET 1 TAB PO (05:49)
[2024-01-25 06:05] LABS: Basophils % (Auto) 0 % (0-2.5); Eosinophils % (Auto) 0 % (0-10); Hematocrit 21.7 % (41.0-53.0); Immature Granulocytes % (Auto) 1 % (0-0); Immature Granulocytes Auto 0.09 Thou/mm3 (0.00-0.00); Lymphocytes # (Auto) 1.1 Thou/mm3 (1.0-4.8); Lymphocytes % (Auto) 7 % (10-50); Mean Corpuscular HGB Conc 34.1 g/dl (31.0-37.0); Mean Corpuscular Hemoglobin 28.1 pg (25.0-35.0); Mean Corpuscular Volume 83 fL (80-100); Monocytes # (Auto) 1.4 Thou/mm3 (0.0-0.8); Monocytes % (Auto) 8 % (0-12); Neutrophils % (Auto) 85 % (37-80); Nucleated Red Blood Cell % 0 /100 WBC (0); Platelet Count 392 Thou/mm3 (140-440); RDW Standard Deviation 40.7 fL (35.1-43.9); Red Blood Count 2.63 Miln/mm3 (4.50-5.90); White Blood Count 17.6 Thou/mm3 (3.8-10.6)
[2024-01-25 06:09] LABS: Hemoglobin 7.4 g/dL (13.5-16.0)
[2024-01-25 06:34] LABS: Anion Gap 8 (7-16); BUN/Creatinine Ratio 18 Ratio (12-20); Blood Urea Nitrogen 42 mg/dL (9-23); Calcium 7.8 mg/dL (8.3-10.6); Carbon Dioxide 21.7 mMol/L (20.0-31.0); Chloride 98 mMol/L (98-107); Creatinine (Component) 2.4 mg/dL (0.6-1.3); Estimated Creatinine Clearance 39.1 mL/min (>60); Glucose 141 mg/dL (74-106); Osmolality,Calculated 269 (275-295); Potassium 4.2 mMol/L (3.4-5.1); Sodium 128 mMol/L (136-145); eGFR 33 See Note
[2024-01-25] MEDS: INSULIN LISPRO (AdmeLOG) 1 UNIT/0.01 ML UNIT SC ×3 (07:43→17:17)
[2024-01-25] MEDS: PANTOPRAZOLE INJ 40 MG VIAL IVP (08:58)
[2024-01-25] MEDS: INSULIN GLARGINE (Lantus) 5 UNIT/0.05 ML (PER 5 UNITS) 10 UNIT SC (08:59)
[2024-01-25] MEDS: METOPROLOL SUCCINATE XL 25 MG TABCR PO (09:00)
[2024-01-25] MEDS: amLODIPine BESYLATE 5 MG TABLET 10 MG PO (09:00)
--- NOTE | 2024-01-25 12:10 | PD.NEPHCONS ---
History of Present Illness Data of Consult Consult date: 01/25/24 Requesting Physician: rEic Raman MD Primary Care Provider: Nayan Leung MD Consult Narrative Reason for consult: ANITHA History of present illness: Chart review done. Patient had a prolonged hospital course. Mr. Morales is a 43-year-old gentleman with no past medical history presented to [facility] on 12/21/2023 with perforated appendicitis with free purulent material in abdomen, underwent laparoscopic appendectomy 12/21/2023. repeat CT A/P showed pneumoperitoneum,so he had exploratory laparotomy on 12/23 and was found to have small bowel perforation, washout was performed & subsequent diverting ileostomy and wound VAC. 12/28: CT-guided percutaneous drainage catheter placed for subphrenic abscess. 12/31 underwent secondary closure of abdominal incision. 01/06/24 patient was taken to the OR. Findings:Purulent material was seen which was whitish and not foul-smelling, sutures removed, irrigated the wound extensively with saline solution and left #19 round Shelton-Weber on the right gutter, then the wound was closed with wound VAC leaving the fascia completely open. Patient tolerated the procedure well and left operating room in stable condition. Patient was in ICU for septic shock. Intubated and subsequently extubated. Transferred to medical floor. Has been receiving significant amount of antibiotics. Currently with ileostomy, VANESSA drain, open wound with wound VAC. Nephrology consultation requested for elevated BUN and creatinine. 01/25/2024 WBC 17.6, hemoglobin 7.4, platelets 392. Sodium 126, potassium 4.2, bicarbonate 18.7, BUN 40, creatinine 2.6, calcium 8.3, phosphorus 4.5, albumin 3.2 urinalysis shows 2+ protein 2+ blood with 72 RBCs and budding yeast. Abdominal CT on 1114 showed subphrenic abscess. His current medications included amlodipine, metoprolol, Remeron, morphine as needed cc:: cc: Eric Raman MD Review of Systems Review of Systems Narrative Review of Systems: Patient seems to be very fatigued and tired. Denies any chest pain. Denies any nausea, vomiting. Past Medical History Past Medical History NEUROLOGIC: Negative Seizures CARDIAC: Negative Cardiac Disorders or Congestive Heart Failure RESPIRATORY: Negative Chronic Obstructive Pulmonary Disease (COPD) or Asthma GENITOURINARY: Negative Renal Disease ENDOCRINE: Negative Diabetes Mellitus Type 1 or Diabetes Mellitus Type 2 HEMATOLOGIC: Negative Sickle Cell Disease OTHER HISTORY: Negative Blood Transfusions, Blood Transfusion Reaction or Anesthesia Reactions Social History SMOKING STATUS: Never smoker Meds Home Medications and Allergies Home Medications ?Medication ?Instructions ?Recorded ?Confirmed ?Type No Known Home Medications 12/22/23 12/22/23 History Allergies Allergy/AdvReac Type Severity Reaction Status Date / Time No Known Allergies Allergy Verified 12/21/23 23:25 Exam Vital Signs Temp Pulse Resp BP Pulse Ox O2 Del Method O2 Flow Rate 36.7 C 116 H 17 135/86 H 95 Room Air 3 01/25/24 17:00 01/25/24 17:00 01/25/24 17:00 01/25/24 17:00 01/25/24 17:00 01/25/24 17:00 01/22/24 14:40 FiO2 30 01/20/24 16:00 Narrative Exam GENERAL APPEARANCE: Sick looking gentleman currently seen in telemetry CARDIOVASCULAR: Heart regular, no murmurs, tachycardia LUNGS/CHEST: Chest clear to auscultation. No rales, rhonchi, wheezing ABDOMEN: S/p diversion ileostomy, wound VAC, VANESSA drain EXTREMITIES: No edema, clubbing or cyanosis. SKIN: Skin exam normal without any rashes MUSCULOSKELETAL: In bed NEUROLOGICAL : No neurological deficits, alert and awake Results Labs 01/25/24 05:33 01/25/24 11:44 Labs: Short CBC 01/25/24 Range/Units 05:33 WBC 17.6 H (3.8-10.6) Thou/mm3 Hgb 7.4 L (13.5-16.0) g/dL Hct 21.7 L* (41.0-53.0) % Plt Count 392 D (140-440) Thou/mm3 BMP 01/25/24 01/25/24 05:33 11:44 Sodium 128 L 126 L Potassium 4.2 D 4.2 Chloride 98 99 Carbon Dioxide 21.7 18.7 L BUN 42 H 40 H Creatinine 2.4 H D 2.6 H Glucose 141 H 170 H Calcium 7.8 L 7.7 L Liver Function 01/25/24 Range/Units 11:44 Albumin 3.2 L (3.5-5.0) gm/dL ABG Interpretation ABG results: 10/12/24/23 12/25/23 15:50 19:45 02:34 ABG pH 7.40 7.23 L D ABG pCO2 40 56 H D ABG pO2 134 H 229 H D ABG HCO3 25 24 ABG O2 Saturation 99 H 100 H ABG Base Excess 0 -5 L VBG pH 7.48 VBG pCO2 35 L VBG pO2 56 VBG Base Excess 2 12/25/23 12/25/23 12/26/23 04:54 10:48 06:56 ABG pH 7.25 L 7.33 L 7.34 L ABG pCO2 52 H 45 43 ABG pO2 93 D 99 95 ABG HCO3 23 23 23 ABG O2 Saturation 97 98 98 ABG Base Excess -5 L -3 -2 VBG pH VBG pCO2 VBG pO2 VBG Base Excess 12/26/23 01/05/24 01/06/24 10:15 08:13 13:50 ABG pH 7.36 7.37 7.42 ABG pCO2 41 38 30 L ABG pO2 87 75 L 90 ABG HCO3 23 22 19 L ABG O2 Saturation 98 96 98 ABG Base Excess -2 -3 -5 L VBG pH VBG pCO2 VBG pO2 VBG Base Excess 01/06/24 01/07/24 01/07/24 21:44 00:30 04:35 ABG pH 7.12 L* D 7.22 L D 7.27 L ABG pCO2 69 H D 52 H D 45 ABG pO2 261 H D 161 H D 209 H D ABG HCO3 22 21 21 ABG O2 Saturation 100 H 99 H 100 H ABG Base Excess -7 L -6 L -6 L VBG pH VBG pCO2 VBG pO2 VBG Base Excess 01/08/24 01/09/24 01/09/24 04:50 04:14 15:49 ABG pH 7.24 L 7.26 L 7.27 L ABG pCO2 47 50 H 51 H ABG pO2 97 D 97 90 ABG HCO3 20 22 23 ABG O2 Saturation 98 98 97 ABG Base Excess -7 L -5 L -4 L VBG pH VBG pCO2 VBG pO2 VBG Base Excess 01/10/24 01/11/24 01/12/24 04:52 04:35 05:24 ABG pH 7.33 L 7.34 L 7.31 L ABG pCO2 43 43 49 H ABG pO2 101 99 106 ABG HCO3 23 23 25 ABG O2 Saturation 98 98 98 ABG Base Excess -3 -3 -2 VBG pH VBG pCO2 VBG pO2 VBG Base Excess Assessment & Plan Assessment and plan (1) Acute renal failure (ARF): Status: Acute Assessment and plan: Acute renal failure secondary to prerenal azotemia versus ATN from underlying infection. Patient received significant amount of antibiotics in the last 2 weeks. Renal ultrasound ordered. Urine lytes ordered. Clinically patient has a lot of GI losses. Will start IV fluids and monitor closely. His p.o. intake very minimal. Replace electrolytes. (2) Metabolic acidosis: Status: Acute Assessment and plan: Metabolic acidosis from GI losses. Added Bicitra. (3) Hyponatremia: Status: Acute Assessment and plan: Hypovolemic hyponatremia. Added normal saline, Bicitra (4) Anemia: Status: Acute Assessment and plan: Anemia from underlying sepsis/renal insufficiency. IV iron, Procrit ordered (5) Sepsis: Status: Acute Assessment and plan: Patient with perforated appendix, complicated with peritonitis, sepsis and went to the OR twice. Currently with wound VAC, VANESSA drain, ileostomy. Patient off antibiotics. Will monitor closely. Additional Assessment & Plan Additional Plan: Thank you Dr. Abrams for allowing me to participate in the care of Mr. Morales
[2024-01-25 12:14] LABS: Albumin, Serum 3.2 gm/dL (3.5-5.0); Anion Gap 8 (7-16); BUN/Creatinine Ratio 15 Ratio (12-20); Blood Urea Nitrogen 40 mg/dL (9-23); Calcium 7.7 mg/dL (8.3-10.6); Calcium (Corrected) 8.3 mg/dL (8.5-10.1); Carbon Dioxide 18.7 mMol/L (20.0-31.0); Chloride 99 mMol/L (98-107); Creatinine (Component) 2.6 mg/dL (0.6-1.3); Estimated Creatinine Clearance 36.1 mL/min (>60); Glucose 170 mg/dL (74-106); Osmolality,Calculated 267 (275-295); Phosphorous 4.5 mg/dL (2.4-5.1); Potassium 4.2 mMol/L (3.4-5.1); Sodium 126 mMol/L (136-145); eGFR 30 See Note
--- NOTE | 2024-01-25 12:59 | ESPR_ITS ---
<Statement entered by Michelle Abrams MD - 01/26/24 17:20> 43-year-old male with no previous medical history admitted for abdominal pain by surgical team and noted to have perforated appendicitis status post surgical intervention on 12/21/2023. Patient noted to have prolonged hospital course with multiple intra-abdominal abscesses and multiple surgical intervention first being laparoscopic appendectomy on 12/21/2023 followed by 2 expiratory laparotomy on 12/25/2023 and 01/06/[address]-guided intra-abdominal drainage requiring TPN. As of now, patient continues to have wound VAC in place and surgical team on board. In addition, patient also on meropenem and continues to have IR guided catheter in place. Furthermore, patient also noted to have acute kidney injury previously with an elevation of creatinine 2.9 however down trended to 1.3. Will continue following the patient with surgical team and recommend continuing meropenem and close hemodynamic monitoring. Overnight, patient creatinine up trended to 2.4 unknown etiology at this point however patient is not on any nephrotoxic agents. Patient did not have any episodes of hypotension to suggest ATN. Creatinine kinase is normal. Patient has a wound VAC in place and low suspicion for abdominal compartment syndrome. Will consult nephrology and continue IV fluid resuscitation. I reviewed above note and agree with findings and plans. I have also personally examined the patient with medicine team and went over assessment and plan with medical team including safety intern and resident physician. Documentation for date of: 01/25/24 Subjective Subjective Interval history: Patient was seen and examined at bedside. No acute overnight events. His hemoglobin today 7.4, he remains tachycardic and his metoprolol was increased to 50 mg daily. His creatinine increased from 1.3-2.6 today, he was increased on maintenance fluids and nephrology Dr Covarrubias was consulted. He is amlodipine was discontinued. Will continue current management and monitor patient. Exam Vital Signs Temp Pulse Resp BP Pulse Ox O2 Del Method O2 Flow Rate 98.9 F 129 H 20 137/82 H 97 Room Air 3 01/25/24 12:42 01/25/24 12:42 01/25/24 12:42 01/25/24 12:42 01/25/24 12:42 01/25/24 12:42 01/22/24 14:40 FiO2 30 01/20/24 16:00 Narrative Exam Gen: Well-developed and well-nourished. HEENT: NCAT, PERRLA, EOMI, MMM, anicteric conjunctivae. CVS: normal S1 and S2. RRR. No M/R/G. Resp: CTA B/L. No rhonchi, rales, crackles or wheezing. Abd: soft, non-tender, non-distended. BS+ in all 4 quadrants. Wound VAC in place with clean margins and healthy granulation tissue, no palpable masses. Abscess drainage in place with minimal drainage in bag. MSK: Good ROM in BUE & BLE. No edema or rash. Neuro: CN II-XII grossly intact. Strength 5/5 in BUE & BLE. Alert and oriented x3. Psych: appropriate mood and affect. Objective Labs 01/25/24 05:33 01/25/24 11:44 Labs: Laboratory Results - last 24 hr 01/25/24 01/25/24 05:33 11:44 WBC 17.6 H RBC 2.63 L Hgb 7.4 L Hct 21.7 L* MCV 83 MCH 28.1 MCHC 34.1 RDW Std Deviation 40.7 Plt Count 392 D Neut % (Auto) 85 H Lymph % (Auto) 7 L Lamb % (Auto) 8 Eos % (Auto) 0 Baso % (Auto) 0 Neut # (Auto) 15.0 H Lymph # (Auto) 1.1 Lamb # (Auto) 1.4 H Eos # (Auto) 0.0 Baso # (Auto) 0.0 Immature Gran # (Auto) 0.09 H Absolute Nucleated RBC 0.00 Immature Gran % 1 H Nucleated RBC % 0 Sodium 128 L 126 L Potassium 4.2 D 4.2 Chloride 98 99 Carbon Dioxide 21.7 18.7 L Anion Gap 8 8 BUN 42 H 40 H Creatinine 2.4 H D 2.6 H Estim Creat Clear Calc 39.1 L 36.1 L eGFR 33 L 30 L BUN/Creatinine Ratio 18 15 Glucose 141 H 170 H Calculated Osmolality 269 L 267 L Calcium 7.8 L 7.7 L Corrected Calcium 8.3 L Phosphorus 4.5 Magnesium 2.0 Albumin 3.2 L ABG Interpretation ABG results: 12/21/23 12/24/23 12/25/23 15:50 19:45 02:34 ABG pH 7.40 7.23 L D ABG pCO2 40 56 H D ABG pO2 134 H 229 H D ABG HCO3 25 24 ABG O2 Saturation 99 H 100 H ABG Base Excess 0 -5 L VBG pH 7.48 VBG pCO2 35 L VBG pO2 56 VBG Base Excess 2 12/25/23 12/25/23 12/26/23 04:54 10:48 06:56 ABG pH 7.25 L 7.33 L 7.34 L ABG pCO2 52 H 45 43 ABG pO2 93 D 99 95 ABG HCO3 23 23 23 ABG O2 Saturation 97 98 98 ABG Base Excess -5 L -3 -2 VBG pH VBG pCO2 VBG pO2 VBG Base Excess 12/26/23 01/05/24 01/06/24 10:15 08:13 13:50 ABG pH 7.36 7.37 7.42 ABG pCO2 41 38 30 L ABG pO2 87 75 L 90 ABG HCO3 23 22 19 L ABG O2 Saturation 98 96 98 ABG Base Excess -2 -3 -5 L VBG pH VBG pCO2 VBG pO2 VBG Base Excess 01/06/24 01/07/24 01/07/24 21:44 00:30 04:35 ABG pH 7.12 L* D 7.22 L D 7.27 L ABG pCO2 69 H D 52 H D 45 ABG pO2 261 H D 161 H D 209 H D ABG HCO3 22 21 21 ABG O2 Saturation 100 H 99 H 100 H ABG Base Excess -7 L -6 L -6 L VBG pH VBG pCO2 VBG pO2 VBG Base Excess 01/08/24 01/09/24 01/09/24 04:50 04:14 15:49 ABG pH 7.24 L 7.26 L 7.27 L ABG pCO2 47 50 H 51 H ABG pO2 97 D 97 90 ABG HCO3 20 22 23 ABG O2 Saturation 98 98 97 ABG Base Excess -7 L -5 L -4 L VBG pH VBG pCO2 VBG pO2 VBG Base Excess 01/10/24 01/11/24 01/12/24 04:52 04:35 05:24 ABG pH 7.33 L 7.34 L 7.31 L ABG pCO2 43 43 49 H ABG pO2 101 99 106 ABG HCO3 23 23 25 ABG O2 Saturation 98 98 98 ABG Base Excess -3 -3 -2 VBG pH VBG pCO2 VBG pO2 VBG Base Excess Quality Measures Quality Measures VTE prophylaxis (heparin subcutaneously) Assessment & Plan Assessment Current Active Medications: Generic Name Dose Route Start Last Admin Trade Name Freq PRN Reason Stop Dose Admin Acetaminophen 650 mg 01/24/24 23:23 01/24/24 23:49 Acetaminophen 325 Mg Tablet PO 02/21/24 20:48 650 mg Q6HR PRN Administration Pain Scale 1-3 or Fever >100.3 Amlodipine Besylate 10 mg 01/13/24 12:30 01/25/24 09:00 Amlodipine Besylate 5 Mg Tablet PO 02/12/24 12:29 10 mg QDAY TAL Administration Dextrose 25 ml 01/04/24 14:37 Dextrose 50%-Water Inj 50 Ml Syringe IV 02/03/24 14:36 Q15MIN PRN BG 50-70 responsive npo pt Dextrose 50 ml 01/04/24 14:37 Dextrose 50%-Water Inj 50 Ml Syringe IV 02/03/24 14:36 Q15MIN PRN BG <50 OR BG <70 & pt unresponsive Glucagon 1 mg 01/07/24 11:34 Glucagon Inj 1 Mg Vial IM Q15MIN PRN BG <70, and no IV access Meropenem 1,000 mg/ Sodium 50 mls @ 100 mls/hr 01/18/24 22:00 01/25/24 05:44 Chloride IV 01/25/24 21:59 100 mls/hr Q8HR TAL Administration Protocol Dextrose/Sodium Chloride 1,000 mls @ 75 mls/hr 01/25/24 10:54 D5-1/2ns IV 01/26/24 10:53 .[id number] [facility] Insulin Glargine 10 unit 01/04/24 14:45 01/25/24 08:59 Insulin Glargine (Lantus) 5 Unit/0.05 Ml (Per 5 Units) SC 02/03/24 14:44 10 unit QDAY TAL Administration Insulin Human Lispro 0 unit 01/20/24 17:00 01/25/24 11:26 Insulin Lispro (Admelog) 1 Unit/0.01 Ml Unit SC 02/19/24 05:59 1 unit ACHS TAL Administration Protocol Labetalol HCl 10 mg 01/05/24 19:16 01/13/24 13:24 Labetalol Inj 5 Mg/Ml Vial 20 Ml IVP 02/04/24 19:29 10 mg Q6H PRN Administration SBP >170, DBP>110 Melatonin 3 mg 12/28/23 21:00 01/24/24 20:13 Melatonin 3 Mg Tablet PO 01/27/24 20:59 3 mg HS TAL Administration Metoprolol Succinate 50 mg 01/26/24 09:00 Metoprolol Succinate Xl 25 Mg Tabcr PO 02/25/24 08:59 QDAY TAL Mirtazapine 15 mg 01/23/24 21:00 01/24/24 20:12 Mirtazapine 15 Mg Tablet PO 02/22/24 20:59 15 mg HS TAL Administration Ondansetron HCl 4 mg 01/23/24 19:23 01/24/24 05:19 Ondansetron Inj 2 Mg/Ml Inj 2 Ml IV 02/22/24 19:22 4 mg Q6HR PRN Administration NAUSEA OR VOMITING Protocol Pantoprazole Sodium 40 mg 01/01/24 09:00 01/25/24 08:58 Pantoprazole Inj 40 Mg Vial IVP 01/31/24 08:59 40 mg QDAY TAL Administration Protocol Plan 43-year-old male with no significant past medical history who was admitted to the hospital by general surgery on 12/21/2023 for acute perforated appendicitis with multiple postop complications. #Sepsis likely secondary to acute perforated appendicitis #Acute perforated appendicitis #Small bowel perforation s/p ileostomy #Peritonitis #Subcapsular abscess s/p CT-guided drain placement #Subphrenic abscess, R ?Initially patient met SIRS 2 out of 4 with leukocytosis and tachycardia ?Patient underwent multiple surgical procedures including laparoscopic appendectomy on day of admission (12/21/2023), 2 ex laps (12/25/2023 and 01/06/2024), and additional secondary closure of abdomen incision (01/01/2024). ?Multiple blood cultures, urine cultures, sputum cultures, and abdominal wound cultures have come back negative ?Abdomen/pelvis CT on 01/12/2024 showed localized fluid collection on the right lower abdomen consistent with an abscess ?Patient had percutaneous drainage catheter taken out by IR as per general surgeon ?Patient has not been having good oral intake therefore TPN will be continued as per general surgeon -DC'd vancomycin (day 9) and Zosyn (day 8 of second treatment) -WBC 16.8 (uptrended) and still tachycardic -CT abdomen/pelvis (01/18/24) showed Right subphrenic abscess which is very small in thickness, 13 mm and abscess below the liver measures 8.4 x 11.5 x 3.8 cm -IR placed pleural drainage again on 01/20/2024 -TPN was discontinued due to absence of access, patient still not having good oral intake. Plan: ?Recommend to encourage oral intake and advance diet as tolerated. -Recommend to follow ID recommendations on Antibiotic regimen, currently on meropenem [01/18/2024-] as per Dr. Rubio -Recommend flushing pleural drainage. ?Recommend wound care. ?Will continue to monitor for any spiking any fever or elevated WBC. #Sinus Tachycardia. - Possibly related pain from recent surgeries, less likely infectious - EKGs in december 2023 reveal sinus tachycardia - increased metoprolol succinate to 50 mg qday. - EKG ordered #Acute kidney injury. ?Creatinine worsened from 1.3 to 2.6. Plan: -nephrology consulted. -Increased maintenance fluid to 75 cc/h. ?Avoid nephrotoxic agents. ?Renally dose medications. ?Will continue to monitor. #Hypertension. -Discontinued amlodipine. -Increase metoprolol succinate to 50 mg daily. #Irritant contact dermatitis. -Patient developed an inner thigh rash most likely due to friction Plan: -Benadryl topical x1 #Normocytic normochromic anemia. ?Hgb 7.8 ?Most likely a component of some blood loss given multiple surgical procedures Plan: ?Recommend to transfuse if hemoglobin less than 7 ?Will continue to monitor #Hypomagnesemia. #Hyponatremia. -Potassium 4, sodium 130, Mg 1.8 Plan: -Recommend to replete as necessary -Will continue to monitor #Hypokalemia, resolved. #Acute hypoxic respiratory failure, resolved. #Pleural effusion, resolved. ?Patient was intubated in the ICU and was successfully extubated on 01/12/2024 ?Chest x-ray on 01/12/2024 showed no pneumonia and no right pleural fluid ?Patient had chest tube taken out by general surgeon -Will assess possibility to take chest tube out ?Checks x-ray 01/15/24 showed no pleural fluid Plan: ?Will continue to monitor Disposition: Patient seen in telemetry, monitoring ADIS's, pain management, and oral intake. Diet: regular and protein supplement. GI prophylaxis: protonix. DVT prophylaxis: heparin sc. Code: Full code. Nutritional: discontinued. Patient case discussed with attending physician Dr. Abrams. Cr Carey MD, PGY 2. Disclaimer: This note was dictated by speech recognition. Minor errors in space systems operations superintendent may be present due to voice recognition software.
--- NOTE | 2024-01-25 13:03 | PC.NURSE ---
irrigated accordian drain.pt.tolerated procedure well.son at bedside.
--- NOTE | 2024-01-25 13:06 | PD.SURPROG ---
Documentation for date of: 01/25/24 Subjective Subjective Brief History: As above Narrative: The patient is essentially unchanged. His oral intake is slightly better today compared to yesterday Exam Vital Signs Temp Pulse Resp BP Pulse Ox O2 Del Method O2 Flow Rate 98.9 F 129 H 20 137/82 H 97 Room Air 3 01/25/24 12:42 01/25/24 12:42 01/25/24 12:42 01/25/24 12:42 01/25/24 12:42 01/25/24 12:42 01/22/24 14:40 FiO2 30 01/20/24 16:00 Vital signs are normal other than persistent tachycardia Routine Abdominal Exam Comments: The drainage in the abscess catheter is minimal with only about 10 cc Assessment & Plan Assessment Additional comments: Impression: Persistent leukocytosis Poor oral intake Plan Plan: I irrigated the wound with large amounts of saline solution. But there is no purulent material draining through the cath. We shall get a CT scan tomorrow morning and see whether the catheter could be pulled out. Procedures Procedures Exploratory laparotomy and drainage of the subcutaneous infection and wound VAC application
[2024-01-25] MEDS: ACETAMINOPHEN 325 MG TABLET 650 MG PO ×2 (13:13→20:22)
--- NOTE | 2024-01-25 13:21 | PC.SS ---
Rounding: CT planned for tomorrow to see if cath can be removed
[2024-01-25] MEDS: MELATONIN 3 MG TABLET PO (20:22)
[2024-01-25] MEDS: MIRTAZAPINE 15 MG TABLET PO (20:22)
[2024-01-25] MEDS: ONDANSETRON INJ 2 MG/ML INJ 2 ML 4 MG IV (20:59)
[2024-01-25] MEDS: DEXTROSE 5%-0.45% NS 1,000 ML 75 ML IV (21:35)
[2024-01-26] VITALS (15 sets, daily range): BP systolic 122–144; BP diastolic 76–91; PULSE 109–118; RESP 13–25; TEMP 36.5–37.3; O2SAT 95–100; BMI 30.5
--- NOTE | 2024-01-26 05:56 | XR_ITS ---
Examination: Retroperitoneal ultrasound, complete Technique: Multiple high resolution grayscale images of the retroperitoneum obtained, including kidneys and bladder. Exam date and time:January 26, 2024 1012 hours INDICATIONS: Acute renal insufficiency on laboratory examination today. FINDINGS: Right kidney 12.9 x 7.1 x 7.9 cm cortex 2.7 cm Left kidney 13.2 x 9 . 5 x 8.6 cm renal cortex 2.8 cm Mild renal parenchymal scar formation Contracted urinary bladder IMPRESSION: Mild bilateral renal parenchymal scar formation No hydronephrosis
[2024-01-26] MEDS: SODIUM CHLORIDE 0.9% 1000 ML 1,000 ML 120 ML IV (06:00)
[2024-01-26 07:12] LABS: Basophils % (Auto) 0 % (0-2.5); Eosinophils % (Auto) 0 % (0-10); Hematocrit 23.2 % (41.0-53.0); Immature Granulocytes % (Auto) 1 % (0-0); Immature Granulocytes Auto 0.08 Thou/mm3 (0.00-0.00); Lymphocytes # (Auto) 1.2 Thou/mm3 (1.0-4.8); Lymphocytes % (Auto) 8 % (10-50); Mean Corpuscular HGB Conc 33.2 g/dl (31.0-37.0); Mean Corpuscular Hemoglobin 28.1 pg (25.0-35.0); Mean Corpuscular Volume 85 fL (80-100); Monocytes # (Auto) 0.8 Thou/mm3 (0.0-0.8); Monocytes % (Auto) 5 % (0-12); Neutrophils # (Auto) 12.6 Thou/mm3 (1.8-7.7); Neutrophils % (Auto) 86 % (37-80); Nucleated Red Blood Cell # 0.02 Thou/mm3 (0.00-0.00); Nucleated Red Blood Cell % 0 /100 WBC (0); Platelet Count 380 Thou/mm3 (140-440); RDW Standard Deviation 41.9 fL (35.1-43.9); Red Blood Count 2.74 Miln/mm3 (4.50-5.90); White Blood Count 14.8 Thou/mm3 (3.8-10.6)
[2024-01-26 07:13] LABS: Hemoglobin 7.7 g/dL (13.5-16.0)
[2024-01-26 07:38] LABS: Alanine Aminotransferase 12 U/L (10-49); Albumin, Serum 3.1 gm/dL (3.5-5.0); Albumin/Globulin Ratio 0.8 (1.2-2.2); Alkaline Phosphatase 134 U/L (46-116); Anion Gap 8 (7-16); Aspartate Amino Transferase < 10 U/L (0-34); Bilirubin,Total 0.3 mg/dL (0.3-1.2); Blood Urea Nitrogen 56 mg/dL (9-23); Calcium 7.6 mg/dL (8.3-10.6); Calcium (Corrected) 8.3 mg/dL (8.5-10.1); Carbon Dioxide 19.4 mMol/L (20.0-31.0); Chloride 99 mMol/L (98-107); Globulin 3.7 gm/dL (2.3-3.5); Glucose 129 mg/dL (74-106); Osmolality,Calculated 270 (275-295); Potassium 4.4 mMol/L (3.4-5.1); Sodium 126 mMol/L (136-145); Total Protein 6.8 gm/dL (5.7-8.2)
[2024-01-26 07:42] LABS: BUN/Creatinine Ratio 16 Ratio (12-20); Creatinine (Component) 3.5 mg/dL (0.6-1.3); Estimated Creatinine Clearance 26.2 mL/min (>60); eGFR 21 See Note
[2024-01-26] MEDS: PANTOPRAZOLE INJ 40 MG VIAL IVP (08:19)
[2024-01-26] MEDS: ONDANSETRON INJ 2 MG/ML INJ 2 ML 4 MG IV (08:37)
--- NOTE | 2024-01-26 09:22 | PD.SURPROG ---
Documentation for date of: 01/26/24 Subjective Subjective Brief History: As above Narrative: The patient is not able to eat and he keeps vomiting. The oral intake is inadequate and patient may have to go back on TPN Exam Vital Signs Temp Pulse Resp BP Pulse Ox O2 Del Method O2 Flow Rate 97.8 F 113 H 18 138/88 H 97 Room Air 3 01/26/24 08:00 01/26/24 08:00 01/26/24 08:00 01/26/24 08:00 01/26/24 08:00 01/26/24 08:00 01/22/24 14:40 FiO2 30 01/20/24 16:00 His vital signs are normal other than persistent tachycardia Routine Abdominal Exam Comments: Abdominal examination is unchanged. There is no distention. Results Results: Laboratory Laboratory Narrative: Laboratory results show WBC around 14,000 but his BUN/creatinine are elevated obviously due to acute kidney injury Assessment & Plan Assessment Additional comments: Impression: Lack of improvement with the present treatment Inability to eat despite lack of any obstruction because ileostomy is draining Plan Plan: The cause of renal deterioration is not clear. I do not know whether it is prerenal or renal. We shall get the nephrology to see. Meanwhile I discussed with Dr. Caceres to see if there is an drainable abscess. We will order a CT scan to evaluate that. Procedures Procedures Exploratory laparotomy and drainage of the subcutaneous infection and wound VAC application
--- NOTE | 2024-01-26 09:24 | XR_ITS ---
Examination: CT abdomen and pelvis without contrast. Coronal 3-D reconstructions. Sagittal 2-D reconstructions. Date and time of exam:January 26, 2024 1002 hours Comparison January 22, 2024 INDICATIONS: Leukocytosis abscess post appendectomy, post CT-guided percutaneous placement drainage tube 01/22/2024 CTDI: vol (mGy): 8.74 DLP: (mGycm): 534 Technique: Axial images of the abdomen have been obtained, 3 mm slice thickness Intravenous contrast material has not been administered. Low dose protocols were performed. One or more of the following dose reduction techniques were used; automated exposure control, adjustment of the mA and/or KV according to patient size, use of iterative reconstruction technique. Findings: Mild right mild to moderate left pleural effusions Atelectasis right lower lobe Fluid peripheral to the liver Decrease in abscess collection below the liver with drainage tube satisfactory position No new abscess collection Increased radiodensity throughout the peritoneal fat consistent with peritonitis pattern No hydronephrosis Aorta normal size Postsurgical changes anterior lower abdomen IMPRESSION: Decrease in size or abscess collection below the liver,. Recommend advancing the abscess drainage catheter under CT guidance for optimal positioning
[2024-01-26 10:18] LABS: Creatinine,Random Urine 55 mg/dL (30-125); Sodium,Urine Random 24.1 mMol/L (20.0-110.0)
[2024-01-26 11:11] LABS: Creatine Kinase 68 U/L (34-171)
--- NOTE | 2024-01-26 11:21 | ESPR_ITS ---
Subjective Subjective Interval history: dany noted. some nausea so not yet eating well. finished merrem last pm. not a likely cause of dany, Exam Vital Signs Temp Pulse Resp BP Pulse Ox O2 Del Method O2 Flow Rate 97.8 F 113 H 18 138/88 H 97 Room Air 3 01/26/24 08:00 01/26/24 08:00 01/26/24 08:00 01/26/24 08:00 01/26/24 08:00 01/26/24 08:00 01/22/24 14:40 FiO2 30 01/20/24 16:00 Narrative Exam no significant edema. abd softer than before. not tender. Objective - Internal Medicine Labs 01/26/24 07:00 01/26/24 07:00 Labs: Laboratory Results - last 24 hr 01/25/24 01/26/24 01/26/24 11:44 07:00 09:34 WBC 14.8 H RBC 2.74 L Hgb 7.7 L Hct 23.2 L MCV 85 MCH 28.1 MCHC 33.2 RDW Std Deviation 41.9 Plt Count 380 Neut % (Auto) 86 H Lymph % (Auto) 8 L [place] % (Auto) 5 Eos % (Auto) 0 Baso % (Auto) 0 Neut # (Auto) 12.6 H Lymph # (Auto) 1.2 [place] # (Auto) 0.8 Eos # (Auto) 0.0 Baso # (Auto) 0.0 Immature Gran # (Auto) 0.08 H Absolute Nucleated RBC 0.02 H Immature Gran % 1 H Nucleated RBC % 0 Sodium 126 L 126 L Potassium 4.2 4.4 Chloride 99 99 Carbon Dioxide 18.7 L 19.4 L Anion Gap 8 8 BUN 40 H 56 H Creatinine 2.6 H 3.5 H D Estim Creat Clear Calc 36.1 L 26.2 L eGFR 30 L 21 L BUN/Creatinine Ratio 15 16 Glucose 170 H 129 H Calculated Osmolality 267 L 270 L Calcium 7.7 L 7.6 L Corrected Calcium 8.3 L 8.3 L Phosphorus 4.5 Total Bilirubin 0.3 AST < 10 ALT 12 Alkaline Phosphatase 134 H Total Creatine Kinase 68 Total Protein 6.8 Albumin 3.2 L 3.1 L Globulin 3.7 H Albumin/Globulin Ratio 0.8 L Ur Random Creatinine 55 Ur Random Sodium 24.1 ABG Interpretation ABG results: 12/21/23 12/24/23 12/25/23 15:50 19:45 02:34 ABG pH 7.40 7.23 L D ABG pCO2 40 56 H D ABG pO2 134 H 229 H D ABG HCO3 25 24 ABG O2 Saturation 99 H 100 H ABG Base Excess 0 -5 L VBG pH 7.48 VBG pCO2 35 L VBG pO2 56 VBG Base Excess 2 12/25/23 12/25/23 12/26/23 04:54 10:48 06:56 ABG pH 7.25 L 7.33 L 7.34 L ABG pCO2 52 H 45 43 ABG pO2 93 D 99 95 ABG HCO3 23 23 23 ABG O2 Saturation 97 98 98 ABG Base Excess -5 L -3 -2 VBG pH VBG pCO2 VBG pO2 VBG Base Excess 12/26/23 01/05/24 01/06/24 10:15 08:13 13:50 ABG pH 7.36 7.37 7.42 ABG pCO2 41 38 30 L ABG pO2 87 75 L 90 ABG HCO3 23 22 19 L ABG O2 Saturation 98 96 98 ABG Base Excess -2 -3 -5 L VBG pH VBG pCO2 VBG pO2 VBG Base Excess 01/06/24 01/07/24 01/07/24 21:44 00:30 04:35 ABG pH 7.12 L* D 7.22 L D 7.27 L ABG pCO2 69 H D 52 H D 45 ABG pO2 261 H D 161 H D 209 H D ABG HCO3 22 21 21 ABG O2 Saturation 100 H 99 H 100 H ABG Base Excess -7 L -6 L -6 L VBG pH VBG pCO2 VBG pO2 VBG Base Excess 01/08/24 01/09/24 01/09/24 04:50 04:14 15:49 ABG pH 7.24 L 7.26 L 7.27 L ABG pCO2 47 50 H 51 H ABG pO2 97 D 97 90 ABG HCO3 20 22 23 ABG O2 Saturation 98 98 97 ABG Base Excess -7 L -5 L -4 L VBG pH VBG pCO2 VBG pO2 VBG Base Excess 01/10/24 01/11/24 01/12/24 04:52 04:35 05:24 ABG pH 7.33 L 7.34 L 7.31 L ABG pCO2 43 43 49 H ABG pO2 101 99 106 ABG HCO3 23 23 25 ABG O2 Saturation 98 98 98 ABG Base Excess -3 -3 -2 VBG pH VBG pCO2 VBG pO2 VBG Base Excess Assessment & Plan A&P Narrative abd perforation at surgery about a month ago now delayed wound closure done 12/31/23 dm II. a1c not too bad ckd, with dany changed merrem to renally dosed levaquin and flagyl. t a change to po and home is reasonable. if nausea improves. home ok at discretion of surgery. Time Spent With Patient Time: Total time spent is greater than 50% in coordination of care (as documented) at patient's floor/unit and/or counseling patient:
[2024-01-26] MEDS: LEVOFLOXACIN/D5W 250MG IVPB 250 MG/50 ML BAG 50 MG IV (12:02)
[2024-01-26] MEDS: metroNIDAZOLE/NS 500 MG IVPB 500 MG/100 ML BAG 200 MG IV ×2 (12:06→20:53)
--- NOTE | 2024-01-26 13:06 | XR_ITS ---
Examination: CT-guided reposition abscess drainage catheter CT abdomen without intravenous contrast Date and time of procedure: January 26, 2024 at 1500 hours INDICATIONS: History right abdomen abscess with percutaneous drainage catheter, site and the proximal in position on the CT study January 26, 2024 at 10 0 2:00 AM Informed consent provided. A timeout was completed verifying correct patient, procedure, site and positioning. Technique: Axial 3 mm sections were obtained for localization of the right abdomen abscess Appropriate area is marked. The patient's site was prepped and draped in sterile fashion Maximal sterile barrier technique utilized, including hand hygiene Local anesthesia was obtained with 1% lidocaine. Low dose protocols were performed. One or more of the following dose reduction techniques were used; automated exposure control, adjustment of the mA and/or KV according to patient size, use of iterative reconstruction technique. Utilizing CT fluoroscopic guidance the abscess drainage catheter was advanced and appears in proper position under CT guidance Fourth toe injection of saline cleared the clogged abscess drainage catheter with purulent drainage material noted Patient appears in stable condition during this procedure. At completion of the procedure, the patient is in satisfactory condition. Estimated blood loss 0 cc Impression: Successful CT-guided repositioning of functioning abscess drainage catheter
--- NOTE | 2024-01-26 13:34 | ESPR_ITS ---
<Statement entered by Michelle Abrams MD - 01/26/24 17:20> 43-year-old male with no previous medical history admitted for abdominal pain by surgical team and noted to have perforated appendicitis status post surgical intervention on 12/21/2023. Patient noted to have prolonged hospital course with multiple intra-abdominal abscesses and multiple surgical intervention first being laparoscopic appendectomy on 12/21/2023 followed by 2 expiratory laparotomy on 12/25/2023 and 01/06/[address]-guided intra-abdominal drainage requiring TPN. As of now, patient continues to have wound VAC in place and surgical team on board. In addition, patient also on meropenem and continues to have IR guided catheter in place. Furthermore, patient also noted to have acute kidney injury previously with an elevation of creatinine 2.9 however down trended to 1.3. Will continue following the patient with surgical team and recommend continuing meropenem and close hemodynamic monitoring. Overnight, patient creatinine up trended to 2.4 and currently at 3.5 unknown etiology at this point however patient is not on any nephrotoxic agents. Patient did not have any episodes of hypotension to suggest ATN. Creatinine kinase is normal. Patient has a wound VAC in place and low suspicion for abdominal compartment syndrome. Will consult nephrology and continue IV fluid resuscitation. Appreciate nephrology and infectious disease input. I reviewed above note and agree with findings and plans. I have also personally examined the patient with medicine team and went over assessment and plan with medical team including employee communications intern and resident physician. Documentation for date of: 01/26/24 Subjective Subjective Interval history: Patient was seen and examined at bedside. No acute overnight events. Patient reports today he is feeling nauseous and unable to drink or eat anything. He was given Zofran. His creatinine went up to 3.5 today, nephrology was consulted they have ordered additional labs and kidney ultrasound, he was started on NS at 120 cc/h and Bicitra. Will continue monitoring patient. Exam Vital Signs Temp Pulse Resp BP Pulse Ox O2 Del Method O2 Flow Rate 97.8 F 115 H 18 138/88 H 97 Room Air 3 01/26/24 08:00 01/26/24 12:49 01/26/24 08:00 01/26/24 12:49 01/26/24 08:00 01/26/24 08:00 01/22/24 14:40 FiO2 30 01/20/24 16:00 Narrative Exam GENERAL APPEARANCE: Sick looking gentleman currently seen in telemetry CARDIOVASCULAR: Heart regular, no murmurs, tachycardia LUNGS/CHEST: Chest clear to auscultation. No rales, rhonchi, wheezing ABDOMEN: S/p diversion ileostomy, wound VAC, VANESSA drain EXTREMITIES: No edema, clubbing or cyanosis. SKIN: Skin exam normal without any rashes MUSCULOSKELETAL: In bed NEUROLOGICAL : No neurological deficits, alert and awake Objective Labs 01/26/24 07:00 01/26/24 07:00 Labs: Laboratory Results - last 24 hr 01/26/24 01/26/24 07:00 09:34 WBC 14.8 H RBC 2.74 L Hgb 7.7 L Hct 23.2 L MCV 85 MCH 28.1 MCHC 33.2 RDW Std Deviation 41.9 Plt Count 380 Neut % (Auto) 86 H Lymph % (Auto) 8 L [place] % (Auto) 5 Eos % (Auto) 0 Baso % (Auto) 0 Neut # (Auto) 12.6 H Lymph # (Auto) 1.2 [place] # (Auto) 0.8 Eos # (Auto) 0.0 Baso # (Auto) 0.0 Immature Gran # (Auto) 0.08 H Absolute Nucleated RBC 0.02 H Immature Gran % 1 H Nucleated RBC % 0 Sodium 126 L Potassium 4.4 Chloride 99 Carbon Dioxide 19.4 L Anion Gap 8 BUN 56 H Creatinine 3.5 H D Estim Creat Clear Calc 26.2 L eGFR 21 L BUN/Creatinine Ratio 16 Glucose 129 H Calculated Osmolality 270 L Calcium 7.6 L Corrected Calcium 8.3 L Total Bilirubin 0.3 AST < 10 ALT 12 Alkaline Phosphatase 134 H Total Creatine Kinase 68 Total Protein 6.8 Albumin 3.1 L Globulin 3.7 H Albumin/Globulin Ratio 0.8 L Ur Random Creatinine 55 Ur Random Sodium 24.1 ABG Interpretation ABG results: 12/21/23 12/24/23 12/25/23 15:50 19:45 02:34 ABG pH 7.40 7.23 L D ABG pCO2 40 56 H D ABG pO2 134 H 229 H D ABG HCO3 25 24 ABG O2 Saturation 99 H 100 H ABG Base Excess 0 -5 L VBG pH 7.48 VBG pCO2 35 L VBG pO2 56 VBG Base Excess 2 12/25/23 12/25/23 12/26/23 04:54 10:48 06:56 ABG pH 7.25 L 7.33 L 7.34 L ABG pCO2 52 H 45 43 ABG pO2 93 D 99 95 ABG HCO3 23 23 23 ABG O2 Saturation 97 98 98 ABG Base Excess -5 L -3 -2 VBG pH VBG pCO2 VBG pO2 VBG Base Excess 12/26/23 01/05/24 01/06/24 10:15 08:13 13:50 ABG pH 7.36 7.37 7.42 ABG pCO2 41 38 30 L ABG pO2 87 75 L 90 ABG HCO3 23 22 19 L ABG O2 Saturation 98 96 98 ABG Base Excess -2 -3 -5 L VBG pH VBG pCO2 VBG pO2 VBG Base Excess 01/06/24 01/07/24 01/07/24 21:44 00:30 04:35 ABG pH 7.12 L* D 7.22 L D 7.27 L ABG pCO2 69 H D 52 H D 45 ABG pO2 261 H D 161 H D 209 H D ABG HCO3 22 21 21 ABG O2 Saturation 100 H 99 H 100 H ABG Base Excess -7 L -6 L -6 L VBG pH VBG pCO2 VBG pO2 VBG Base Excess 01/08/24 01/09/24 01/09/24 04:50 04:14 15:49 ABG pH 7.24 L 7.26 L 7.27 L ABG pCO2 47 50 H 51 H ABG pO2 97 D 97 90 ABG HCO3 20 22 23 ABG O2 Saturation 98 98 97 ABG Base Excess -7 L -5 L -4 L VBG pH VBG pCO2 VBG pO2 VBG Base Excess 01/10/24 01/11/24 01/12/24 04:52 04:35 05:24 ABG pH 7.33 L 7.34 L 7.31 L ABG pCO2 43 43 49 H ABG pO2 101 99 106 ABG HCO3 23 23 25 ABG O2 Saturation 98 98 98 ABG Base Excess -3 -3 -2 VBG pH VBG pCO2 VBG pO2 VBG Base Excess Quality Measures Quality Measures VTE prophylaxis (heparin subcutaneously) Assessment & Plan Assessment Current Active Medications: Generic Name Dose Route Start Last Admin Trade Name Freq PRN Reason Stop Dose Admin Acetaminophen 650 mg 01/24/24 23:23 01/25/24 20:22 Acetaminophen 325 Mg Tablet PO 02/21/24 20:48 650 mg Q6HR PRN Administration Pain Scale 1-3 or Fever >100.3 Amlodipine Besylate 10 mg 01/13/24 12:30 01/25/24 09:00 Amlodipine Besylate 5 Mg Tablet PO 02/12/24 12:29 10 mg QDAY TAL Administration Citric Acid/Sodium Citrate 30 ml 01/26/24 09:00 01/26/24 12:48 Citric Acid/Sodium Citr 15 Ml Udc (Bicitra) PO 02/25/24 08:59 Not Given BID TAL Dextrose 25 ml 01/04/24 14:37 Dextrose 50%-Water Inj 50 Ml Syringe IV 02/03/24 14:36 Q15MIN PRN BG 50-70 responsive npo pt Dextrose 50 ml 01/04/24 14:37 Dextrose 50%-Water Inj 50 Ml Syringe IV 02/03/24 14:36 Q15MIN PRN BG <50 OR BG <70 & pt unresponsive Glucagon 1 mg 01/07/24 11:34 Glucagon Inj 1 Mg Vial IM Q15MIN PRN BG <70, and no IV access Dextrose/Sodium Chloride 1,000 mls @ 75 mls/hr 01/25/24 21:30 01/25/24 21:35 D5-1/2ns IV 02/24/24 21:29 75 mls/hr .[id number] TAL Administration Sodium Chloride 1,000 mls @ 120 mls/hr 01/26/24 05:53 01/26/24 06:00 Ns IV 01/26/24 14:12 120 mls/hr .[id number] ONE Administration Levofloxacin/Dextrose 250 mg in 50 mls @ 50 mls/hr 01/26/24 11:30 01/26/24 12:02 Levaquin Ivpb IV 02/02/24 11:29 50 mls/hr QDAY TAL Administration Metronidazole 500 mg in 100 mls @ 200 mls/hr 01/26/24 11:30 01/26/24 12:06 Flagyl 500 Mg Iv IV 02/02/24 11:29 200 mls/hr Q8HR TAL Administration Insulin Glargine 10 unit 01/04/24 14:45 01/26/24 08:27 Insulin Glargine (Lantus) 5 Unit/0.05 Ml (Per 5 Units) SC 02/03/24 14:44 Not Given QDAY TAL Insulin Human Lispro 0 unit 01/20/24 17:00 01/26/24 12:47 Insulin Lispro (Admelog) 1 Unit/0.01 Ml Unit SC 02/19/24 05:59 Not Given ACHS TAL Protocol Labetalol HCl 10 mg 01/05/24 19:16 01/13/24 13:24 Labetalol Inj 5 Mg/Ml Vial 20 Ml IVP 02/04/24 19:29 10 mg Q6H PRN Administration SBP >170, DBP>110 Melatonin 3 mg 12/28/23 21:00 01/25/24 20:22 Melatonin 3 Mg Tablet PO 01/27/24 20:59 3 mg HS TAL Administration Metoprolol Succinate 50 mg 01/26/24 09:00 01/26/24 12:49 Metoprolol Succinate Xl 25 Mg Tabcr PO 02/25/24 08:59 Not Given QDAY TAL Mirtazapine 15 mg 01/23/24 21:00 01/25/24 20:22 Mirtazapine 15 Mg Tablet PO 02/22/24 20:59 15 mg HS TAL Administration Morphine Sulfate 2 mg 01/25/24 13:01 Morphine Sulf Inj 10 Mg/Ml Vial IVP 01/30/24 13:00 Q4HR PRN PAIN SCALE 4-10(Mod-Sev Ondansetron HCl 4 mg 01/23/24 19:23 01/26/24 08:37 Ondansetron Inj 2 Mg/Ml Inj 2 Ml IV 02/22/24 19:22 4 mg Q6HR PRN Administration NAUSEA OR VOMITING Protocol Pantoprazole Sodium 40 mg 01/01/24 09:00 01/26/24 08:19 Pantoprazole Inj 40 Mg Vial IVP 01/31/24 08:59 40 mg QDAY TAL Administration Protocol Plan 43-year-old male with no significant past medical history who was admitted to the hospital by general surgery on 12/21/2023 for acute perforated appendicitis with multiple postop complications. #Sepsis likely secondary to acute perforated appendicitis #Acute perforated appendicitis #Small bowel perforation s/p ileostomy #Peritonitis #Subcapsular abscess s/p CT-guided drain placement #Subphrenic abscess, R ?Initially patient met SIRS 2 out of 4 with leukocytosis and tachycardia ?Patient underwent multiple surgical procedures including laparoscopic appendectomy on day of admission (12/21/2023), 2 ex laps (12/25/2023 and 01/06/2024), and additional secondary closure of abdomen incision (01/01/2024). ?Multiple blood cultures, urine cultures, sputum cultures, and abdominal wound cultures have come back negative ?Abdomen/pelvis CT on 01/12/2024 showed localized fluid collection on the right lower abdomen consistent with an abscess ?Patient had percutaneous drainage catheter taken out by IR as per general surgeon ?Patient has not been having good oral intake therefore TPN will be continued as per general surgeon -DC'd vancomycin (day 9) and Zosyn (day 8 of second treatment) -WBC 16.8 (uptrended) and still tachycardic -CT abdomen/pelvis (01/18/24) showed Right subphrenic abscess which is very small in thickness, 13 mm and abscess below the liver measures 8.4 x 11.5 x 3.8 cm -IR placed pleural drainage again on 01/20/2024 -TPN was discontinued due to absence of access, patient still not having good oral intake. Plan: ?Recommend to encourage oral intake and advance diet as tolerated. -Recommend to follow ID recommendations on Antibiotic regimen, currently on meropenem [01/18/2024-] as per Dr. Rubio -Recommend flushing pleural drainage. ?Recommend wound care. ?Will continue to monitor for any spiking any fever or elevated WBC. -Patient was started on levofloxacin and metronidazole by ID. -Pending CTAP without contrast. #Sinus Tachycardia. - Possibly related pain from recent surgeries, less likely infectious - EKGs in december 2023 reveal sinus tachycardia - increased metoprolol succinate to 50 mg qday. - EKG ordered #Acute kidney injury. #Suspected acute renal failure. ?Creatinine worsened from 1.3 to 3.5. Plan: -nephrology consulted. -Increased maintenance fluid to 120 cc/h. -started on bycitra. ?Avoid nephrotoxic agents. ?Renally dose medications. ?Will continue to monitor. #Hypertension. -Discontinued amlodipine. -Increase metoprolol succinate to 50 mg daily. #Irritant contact dermatitis. -Patient developed an inner thigh rash most likely due to friction Plan: -Benadryl topical x1 #Normocytic normochromic anemia. ?Hgb 7.8 ?Most likely a component of some blood loss given multiple surgical procedures Plan: ?Recommend to transfuse if hemoglobin less than 7 ?Will continue to monitor #Hypomagnesemia. #Hyponatremia. -Potassium 4, sodium 130, Mg 1.8 Plan: -Recommend to replete as necessary -Will continue to monitor #Hypokalemia, resolved. #Acute hypoxic respiratory failure, resolved. #Pleural effusion, resolved. ?Patient was intubated in the ICU and was successfully extubated on 01/12/2024 ?Chest x-ray on 01/12/2024 showed no pneumonia and no right pleural fluid ?Patient had chest tube taken out by general surgeon -Will assess possibility to take chest tube out ?Checks x-ray 01/15/24 showed no pleural fluid Plan: ?Will continue to monitor Disposition: Patient seen in telemetry, monitoring ADIS's, pain management, and oral intake. Diet: regular and protein supplement. GI prophylaxis: protonix. DVT prophylaxis: heparin sc. Code: Full code. Nutritional: discontinued. Patient case discussed with attending physician Dr. Abrams. Cr Carey MD, PGY 2. Disclaimer: This note was dictated by speech recognition. Minor errors in spine nurse may be present due to voice recognition software.
--- NOTE | 2024-01-26 13:37 | PD.RESPRO ---
Documentation for date of: 01/26/24 Subjective Subjective Interval history: Mr. Morales is a 43-year-old gentleman with no past medical history presented to [facility] on 12/21/2023 with perforated appendicitis with free purulent material in abdomen, underwent laparoscopic appendectomy 12/21/2023. repeat CT A/P showed pneumoperitoneum,so he had exploratory laparotomy on 12/23 and was found to have small bowel perforation, washout was performed & subsequent diverting ileostomy and wound VAC. 12/28: CT-guided percutaneous drainage catheter placed for subphrenic abscess. 12/31 underwent secondary closure of abdominal incision. 01/06/24 patient was taken to the OR. Findings:Purulent material was seen which was whitish and not foul-smelling, sutures removed, irrigated the wound extensively with saline solution and left #19 round Shel[place]Weber on the right gutter, then the wound was closed with wound VAC leaving the fascia completely open. Patient tolerated the procedure well and left operating room in stable condition. Patient was in ICU for septic shock. Intubated and subsequently extubated. Transferred to medical floor. Has been receiving significant amount of antibiotics. Currently with ileostomy, VANESSA drain, open wound with wound VAC. Nephrology consultation requested for elevated BUN and creatinine. 01/25/2024 WBC 17.6, hemoglobin 7.4, platelets 392. Sodium 126, potassium 4.2, bicarbonate 18.7, BUN 40, creatinine 2.6, calcium 8.3, phosphorus 4.5, albumin 3.2 urinalysis shows 2+ protein 2+ blood with 72 RBCs and budding yeast. Abdominal CT on 01/21 showed subphrenic abscess. His current medications included amlodipine, metoprolol, Remeron, morphine as needed 01/25: Patient seen on the floors, resting in bed. Patient looks uncomfortable, ill-appearing. BUN 56, creatinine 3.5, eGFR 21. Patient complains of severe nausea and vomiting, unable to tolerate p.o. intake including liquids. Patient has Zofran on board as needed. Exam Vital Signs Temp Pulse Resp BP Pulse Ox O2 Del Method O2 Flow Rate 97.8 F 115 H 18 138/88 H 97 Room Air 3 01/26/24 08:00 01/26/24 12:49 01/26/24 08:00 01/26/24 12:49 01/26/24 08:00 01/26/24 08:00 01/22/24 14:40 FiO2 30 01/20/24 16:00 Narrative Exam GENERAL APPEARANCE: Sick looking gentleman currently seen in telemetry CARDIOVASCULAR: Heart regular, no murmurs, tachycardia LUNGS/CHEST: Chest clear to auscultation. No rales, rhonchi, wheezing ABDOMEN: S/p diversion ileostomy, wound VAC, VANESSA drain EXTREMITIES: No edema, clubbing or cyanosis. SKIN: Skin exam normal without any rashes MUSCULOSKELETAL: In bed NEUROLOGICAL : No neurological deficits, alert and awake Objective Labs 01/27/24 05:39 01/27/24 05:39 Labs: Laboratory Results - last 24 hr 01/26/24 01/26/24 07:00 09:34 WBC 14.8 H RBC 2.74 L Hgb 7.7 L Hct 23.2 L MCV 85 MCH 28.1 MCHC 33.2 RDW Std Deviation 41.9 Plt Count 380 Neut % (Auto) 86 H Lymph % (Auto) 8 L Garrard % (Auto) 5 Eos % (Auto) 0 Baso % (Auto) 0 Neut # (Auto) 12.6 H Lymph # (Auto) 1.2 Garrard # (Auto) 0.8 Eos # (Auto) 0.0 Baso # (Auto) 0.0 Immature Gran # (Auto) 0.08 H Absolute Nucleated RBC 0.02 H Immature Gran % 1 H Nucleated RBC % 0 Sodium 126 L Potassium 4.4 Chloride 99 Carbon Dioxide 19.4 L Anion Gap 8 BUN 56 H Creatinine 3.5 H D Estim Creat Clear Calc 26.2 L eGFR 21 L BUN/Creatinine Ratio 16 Glucose 129 H Calculated Osmolality 270 L Calcium 7.6 L Corrected Calcium 8.3 L Total Bilirubin 0.3 AST < 10 ALT 12 Alkaline Phosphatase 134 H Total Creatine Kinase 68 Total Protein 6.8 Albumin 3.1 L Globulin 3.7 H Albumin/Globulin Ratio 0.8 L Ur Random Creatinine 55 Ur Random Sodium 24.1 ABG Interpretation ABG results: 12/21/23 12/24/23 12/25/23 15:50 19:45 02:34 ABG pH 7.40 7.23 L D ABG pCO2 40 56 H D ABG pO2 134 H 229 H D ABG HCO3 25 24 ABG O2 Saturation 99 H 100 H ABG Base Excess 0 -5 L VBG pH 7.48 VBG pCO2 35 L VBG pO2 56 VBG Base Excess 2 12/25/23 12/25/23 12/26/23 04:54 10:48 06:56 ABG pH 7.25 L 7.33 L 7.34 L ABG pCO2 52 H 45 43 ABG pO2 93 D 99 95 ABG HCO3 23 23 23 ABG O2 Saturation 97 98 98 ABG Base Excess -5 L -3 -2 VBG pH VBG pCO2 VBG pO2 VBG Base Excess 12/26/23 01/05/24 01/06/24 10:15 08:13 13:50 ABG pH 7.36 7.37 7.42 ABG pCO2 41 38 30 L ABG pO2 87 75 L 90 ABG HCO3 23 22 19 L ABG O2 Saturation 98 96 98 ABG Base Excess -2 -3 -5 L VBG pH VBG pCO2 VBG pO2 VBG Base Excess 01/06/24 01/07/24 01/07/24 21:44 00:30 04:35 ABG pH 7.12 L* D 7.22 L D 7.27 L ABG pCO2 69 H D 52 H D 45 ABG pO2 261 H D 161 H D 209 H D ABG HCO3 22 21 21 ABG O2 Saturation 100 H 99 H 100 H ABG Base Excess -7 L -6 L -6 L VBG pH VBG pCO2 VBG pO2 VBG Base Excess 01/08/24 01/09/24 01/09/24 04:50 04:14 15:49 ABG pH 7.24 L 7.26 L 7.27 L ABG pCO2 47 50 H 51 H ABG pO2 97 D 97 90 ABG HCO3 20 22 23 ABG O2 Saturation 98 98 97 ABG Base Excess -7 L -5 L -4 L VBG pH VBG pCO2 VBG pO2 VBG Base Excess 01/10/24 01/11/24 01/12/24 04:52 04:35 05:24 ABG pH 7.33 L 7.34 L 7.31 L ABG pCO2 43 43 49 H ABG pO2 101 99 106 ABG HCO3 23 23 25 ABG O2 Saturation 98 98 98 ABG Base Excess -3 -3 -2 VBG pH VBG pCO2 VBG pO2 VBG Base Excess Quality Measures Quality Measures VTE prophylaxis (heparin subcutaneously) Assessment & Plan Assessment Current Active Medications: Generic Name Dose Route Start Last Admin Trade Name Naun PRN Reason Stop Dose Admin Acetaminophen 650 mg 01/24/24 23:23 01/25/24 20:22 Acetaminophen 325 Mg Tablet PO 02/21/24 20:48 650 mg Q6HR PRN Administration Pain Scale 1-3 or Fever >100.3 Amlodipine Besylate 10 mg 01/13/24 12:30 01/25/24 09:00 Amlodipine Besylate 5 Mg Tablet PO 02/12/24 12:29 10 mg QDAY TAL Administration Citric Acid/Sodium Citrate 30 ml 01/26/24 09:00 01/26/24 12:48 Citric Acid/Sodium Citr 15 Ml Udc (Bicitra) PO 02/25/24 08:59 Not Given BID TAL Dextrose 25 ml 01/04/24 14:37 Dextrose 50%-Water Inj 50 Ml Syringe IV 02/03/24 14:36 Q15MIN PRN BG 50-70 responsive npo pt Dextrose 50 ml 01/04/24 14:37 Dextrose 50%-Water Inj 50 Ml Syringe IV 02/03/24 14:36 Q15MIN PRN BG <50 OR BG <70 & pt unresponsive Glucagon 1 mg 01/07/24 11:34 Glucagon Inj 1 Mg Vial IM Q15MIN PRN BG <70, and no IV access Dextrose/Sodium Chloride 1,000 mls @ 75 mls/hr 01/25/24 21:30 01/25/24 21:35 D5-1/2ns IV 02/24/24 21:29 75 mls/hr .[id number] TAL Administration Sodium Chloride 1,000 mls @ 120 mls/hr 01/26/24 05:53 01/26/24 06:00 Ns IV 01/26/24 14:12 120 mls/hr .[id number] ONE Administration Levofloxacin/Dextrose 250 mg in 50 mls @ 50 mls/hr 01/26/24 11:30 01/26/24 12:02 Levaquin Ivpb IV 02/02/24 11:29 50 mls/hr QDAY TAL Administration Metronidazole 500 mg in 100 mls @ 200 mls/hr 01/26/24 11:30 01/26/24 12:06 Flagyl 500 Mg Iv IV 02/02/24 11:29 200 mls/hr Q8HR TAL Administration Insulin Glargine 10 unit 01/04/24 14:45 01/26/24 08:27 Insulin Glargine (Lantus) 5 Unit/0.05 Ml (Per 5 Units) SC 02/03/24 14:44 Not Given QDAY TAL Insulin Human Lispro 0 unit 01/20/24 17:00 01/26/24 12:47 Insulin Lispro (Admelog) 1 Unit/0.01 Ml Unit SC 02/19/24 05:59 Not Given ACHS [facility] Protocol Labetalol HCl 10 mg 01/05/24 19:16 01/13/24 13:24 Labetalol Inj 5 Mg/Ml Vial 20 Ml IVP 02/04/24 19:29 10 mg Q6H PRN Administration SBP >170, DBP>110 Melatonin 3 mg 12/28/23 21:00 01/25/24 20:22 Melatonin 3 Mg Tablet PO 01/27/24 20:59 3 mg HS TAL Administration Metoprolol Succinate 50 mg 01/26/24 09:00 01/26/24 12:49 Metoprolol Succinate Xl 25 Mg Tabcr PO 02/25/24 08:59 Not Given QDAY TAL Mirtazapine 15 mg 01/23/24 21:00 01/25/24 20:22 Mirtazapine 15 Mg Tablet PO 02/22/24 20:59 15 mg HS TAL Administration Morphine Sulfate 2 mg 01/25/24 13:01 Morphine Sulf Inj 10 Mg/Ml Vial IVP 01/30/24 13:00 Q4HR PRN PAIN SCALE 4-10(Mod-Sev Ondansetron HCl 4 mg 01/23/24 19:23 01/26/24 08:37 Ondansetron Inj 2 Mg/Ml Inj 2 Ml IV 02/22/24 19:22 4 mg Q6HR PRN Administration NAUSEA OR VOMITING Protocol Pantoprazole Sodium 40 mg 01/01/24 09:00 01/26/24 08:19 Pantoprazole Inj 40 Mg Vial IVP 01/31/24 08:59 40 mg QDAY TAL Administration Protocol Plan 43-year-old male with no significant past medical history who was admitted to the hospital by general surgery on 12/21/2023 for acute perforated appendicitis with multiple postop complications. #Acute kidney injury. #Suspected acute renal failure. Patient has no history of CKD. Patient has acutely worsening renal function: On 01/22 BUN 36, creatinine 1.3, eGFR greater than 60. 01/25 BUN 56, creatinine 3.5, eGFR 21. Patient has increased GI losses, wound VAC end ileostomy. Patient has very poor p.o. intake due to severe nausea and vomiting, unable to tolerate oral fluids. Patient receiving IVF. Plan: -IVF: Normal saline at 120 cc/h. -Monitor/electrolytes as needed -Avoid nephrotoxic agents. -renally dose medications. -Will continue to monitor. #Sepsis likely secondary to acute perforated appendicitis #Acute perforated appendicitis #Small bowel perforation s/p ileostomy #Peritonitis #Subcapsular abscess s/p CT-guided drain placement #Subphrenic abscess, R #Sinus Tachycardia. #Hypertension. #Irritant contact dermatitis. #Normocytic normochromic anemia. #Acute hypoxic respiratory failure, resolved. #Pleural effusion, resolved. Management as per primary team. Diet: regular with protein supplement. GI prophylaxis: protonix. DVT prophylaxis: heparin Code: Full code. Thank you for allow me to precipitate in the care of this patient. Plan of care discussed with attending Dr. Covarrubias. Kris Fuentes MD PGY-1 Attending Provider Attestation/Addendum patient seen and examined with resident physician Dr. Fuentes. Note reviewed, agree with findings and recommendations with changes made. Patient still with elevated BUN and creatinine. Suspect ATN. Spoke to Dr. Rubio. Continue with fluids
[2024-01-26] MEDS: LIDOCAINE INJ PF 1% 30 ML VIAL INFL (15:23)
[2024-01-26 15:57] LABS: INR 1.1 (0.9-1.3); Partial Thromboplastin Time 30.8 Seconds (22.0-36.0); Prothrombin Time 11.5 Seconds (9.0-12.2)
[2024-01-26] MEDS: METOCLOPRAMIDE INJ 5 MG/ML VIAL 2 ML IVP (16:30)
--- NOTE | 2024-01-26 16:33 | PC.NURSE ---
[address] guided reposition of abdominal abscess drainage catheter, tolerated procedure well under local anesthesia, report given to Alena TURCIOS, patient transferred back to room 274 with tele box, no recovery needed in label stamper per MD since pt received only local anesthesia.
[2024-01-26] MEDS: DEXTROSE 5%-0.45% NS 1,000 ML 75 ML IV (16:56)
--- NOTE | 2024-01-26 18:33 | PC.NURSE ---
came and irrigated accordian suction,had scant amt. of cloudy drainage. pt. tolerated procedure well.
[2024-01-26] MEDS: MIRTAZAPINE 15 MG TABLET PO (20:54)
[2024-01-26] MEDS: MELATONIN 3 MG TABLET PO (20:54)
[2024-01-26] MEDS: ACETAMINOPHEN 325 MG TABLET 650 MG PO (21:09)
[2024-01-27] VITALS (11 sets, daily range): BP systolic 123–149; BP diastolic 79–93; PULSE 102–112; RESP 16–22; TEMP 36.2–36.5; O2SAT 96–99; BMI 32.8
[2024-01-27] MEDS: metroNIDAZOLE/NS 500 MG IVPB 500 MG/100 ML BAG 200 MG IV ×3 (05:04→21:18)
[2024-01-27] MEDS: DEXTROSE 5%-0.45% NS 1,000 ML 75 ML IV (05:04)
[2024-01-27 06:29] LABS: Basophils % (Auto) 0 % (0-2.5); Eosinophils % (Auto) 0 % (0-10); Immature Granulocytes % (Auto) 1 % (0-0); Immature Granulocytes Auto 0.07 Thou/mm3 (0.00-0.00); Lymphocytes # (Auto) 1.1 Thou/mm3 (1.0-4.8); Lymphocytes % (Auto) 11 % (10-50); Mean Corpuscular HGB Conc 34.2 g/dl (31.0-37.0); Mean Corpuscular Hemoglobin 28.3 pg (25.0-35.0); Mean Corpuscular Volume 83 fL (80-100); Monocytes # (Auto) 0.7 Thou/mm3 (0.0-0.8); Monocytes % (Auto) 6 % (0-12); Neutrophils # (Auto) 8.4 Thou/mm3 (1.8-7.7); Neutrophils % (Auto) 82 % (37-80); Nucleated Red Blood Cell % 0 /100 WBC (0); Platelet Count 419 Thou/mm3 (140-440); RDW Standard Deviation 40.2 fL (35.1-43.9); Red Blood Count 2.65 Miln/mm3 (4.50-5.90); White Blood Count 10.3 Thou/mm3 (3.8-10.6)
[2024-01-27 06:30] LABS: Hematocrit 21.9 % (41.0-53.0); Hemoglobin 7.5 g/dL (13.5-16.0)
[2024-01-27 07:23] LABS: Anion Gap 10 (7-16); BUN/Creatinine Ratio 15 Ratio (12-20); Blood Urea Nitrogen 68 mg/dL (9-23); Calcium 7.4 mg/dL (8.3-10.6); Calcium (Corrected) 8.2 mg/dL (8.5-10.1); Chloride 100 mMol/L (98-107); Creatinine (Component) 4.6 mg/dL (0.6-1.3); Estimated Creatinine Clearance 20.6 mL/min (>60); Glucose 122 mg/dL (74-106); Magnesium 2.1 mg/dL (1.6-2.6); Osmolality,Calculated 275 (275-295); Phosphorous 6.5 mg/dL (2.4-5.1); Potassium 4.2 mMol/L (3.4-5.1); Sodium 127 mMol/L (136-145); eGFR 15 See Note
--- NOTE | 2024-01-27 08:34 | PC.CM ---
Charge nurse stated in report that patient may need to be transferred to higher level care. I called and spoke to bedside nurse and she states Dr. Rubio and Dr. Covarrubias are in the room discussing patient at this time. I will follow up to see if patient needs transfer.
[2024-01-27] MEDS: MORPHINE SULF INJ 10 MG/ML VIAL 2 MG IVP (09:17)
[2024-01-27] MEDS: ONDANSETRON INJ 2 MG/ML INJ 2 ML 4 MG IV (09:17)
[2024-01-27] MEDS: LEVOFLOXACIN/D5W 250MG IVPB 250 MG/50 ML BAG 50 MG IV (09:18)
[2024-01-27] MEDS: METOPROLOL SUCCINATE XL 25 MG TABCR 50 MG PO (09:19)
[2024-01-27] MEDS: PANTOPRAZOLE INJ 40 MG VIAL IVP (09:19)
--- NOTE | 2024-01-27 09:24 | XR_ITS ---
Examination: Nuclear medicine renal flow and function multiple studies Exam date and time: January 28, 2024 1359 hours INDICATIONS: Acute renal insufficiency on laboratory examinations this week TECHNIQUE AND FINDINGS: Intravenous ministration 10.2 mCi technetium 99m MAG3 Flow and function curves generated to both kidneys Adequate flow left kidney no left renal function Reduced flow right kidney, 80% of left kidney, no renal function IMPRESSION: No renal function bilaterally
[2024-01-27 09:26] LABS: Triglycerides 393 mg/dL (30-150)
--- NOTE | 2024-01-27 09:48 | XR_ITS ---
Examination: Central line placement, triple lumen catheter. Ultrasound-guided needle placement right internal jugular vein. Fluoroscopy AP Chest, portable single view Exam date and time: January 27, 2024 12:58 PM INDICATIONS: Need for long-term intravenous (and nutrition. Informed consent provided Technique: A timeout was completed, verifying correct patient, procedure, site, positioning, and special equipment if applicable The patient was placed in a dependent position appropriate for central line placement based on the vein to be cannulated. The patient's right neck was prepped and draped in sterile fashion. Maximum Sterile Barrier Technique used including cap, mask, sterile gown, sterile gloves, and sterile full body drape. If ultrasound technique used: sterile gel and sterile probe covers. Hand Hygiene performed using proper scrub, soap and water, or alcohol-based hand rub. Site right portable apparatus utilized to confirm patency of the right internal jugular vein Utilizing ultrasonographic guidance successful 21-gauge needle puncture into the right internal jugular vein Ultrasound images were recorded and stored. Successful micropuncture with a 21-gauge needle was performed. 0.18 wire guide was introduced into the IVC under fluoroscopic guidance. The wires is then exchanged for a 0.25 J-wire guide placed in the vena cava. The triple lumen catheter dilator is introduced, followed by the catheter in the SVC in proper position under fluoroscopic guidance. Successful aspiration of blood and flushing with heparinized saline is then performed in the 3 venous limbs. The catheter is sutured in place to the skin and a sterile dressing applied. Perfusion to the extremity distal to the point of catheter insertion was checked and found to be adequate The attending radiologist was present for the entire procedure Estimated blood loss1 cc. Findings: Under fluoroscopy, the tip of the catheter is in good position in the vena cava. Portable chest x-ray, post line placement, as ordered. Impression: Successful ultrasound-guided needle placement right internal jugular vein. Successful placement of triple lumen catheter central line, percutaneous. Fluoroscopy 0.1 minute radiation dose 1.72 milligray 1 spot fluoroscopic chest film. AP portable chest completion procedure demonstrates satisfactory position central line tip SVC. May use central line.
[2024-01-27] MEDS: METOCLOPRAMIDE INJ 5 MG/ML VIAL 2 ML IVP ×2 (10:32→17:58)
--- NOTE | 2024-01-27 11:21 | ESPR_ITS ---
<Statement entered by Cr Carey MD - 01/27/24 18:31> Senior Resident Attestation: I supervised/discussed management plan with international relations professor physician Dr. Goncalves, and was involved in the care of this patient. I personally saw and examined the patient and discussed the assessment and plan with the entire medicine team, including my attending. I agree with the assessment and plan as documented. Patient's care was discussed with attending physician, Dr. Abrams. Cr Carey MD PGY-2. Documentation for date of: 01/27/24 Subjective Subjective Interval history: Patient was seen at bedside this morning. No overnight events. patient has been having very poor oral intake and states he has been nauseated and vomiting over night when he tries to eat or drink. Patient mentioned he has epigastric pain and everytime he tries to eat it hurt in the epigastric region. Dr. Rubio will start TPN again due to poor oral intake and nephrology will due a nuclear medicine renal scan and possible need for dialysis. Exam Vital Signs Temp Pulse Resp BP Pulse Ox O2 Del Method O2 Flow Rate 97.5 F 102 H 20 126/82 97 Room Air 3 01/27/24 07:56 01/27/24 09:19 01/27/24 07:56 01/27/24 09:19 01/27/24 07:56 01/27/24 07:56 01/26/24 15:28 FiO2 30 01/20/24 16:00 Narrative Exam General: A/O x3, ill appearing gentleman and weak Eyes: PERRL, EOMI. Anicteric, vision grossly intact. Ears: No ear pain, no ear discharge, Hearing grossly intact. Nose: No nasal discharge. Mouth/Throat: Dry mucous membranes, no redness, no lesions. Neck: Neck supple, non-tender, no cervical lymphadenopathy. Lungs: Clear KYA to auscultation and percussion, No accessory muscle use. Cardio: Normal S1/S2, regular rhythm, no murmurs, no JVD Abdomen: Soft, Wound VAC in place with clean margins and healthy granulation tissue, tenderness in epigastric region, no palpable masses, peristalsis present, no guarding or rebound. Pleural drainage in place with with purulent drainage in bag. Extremities: Symmetrical, no significant deformities, no peripheral edema , non-tender, peripheral pulses presents. Skin: no lesions, warm to touch. Neuro: No focal neurological deficits. motor and sensory intact Psych: Cooperative, appropriate mood and effect. Objective Labs 01/29/24 05:25 01/29/24 05:25 Labs: Laboratory Results - last 24 hr 01/26/24 01/27/24 07:00 05:39 WBC 10.3 RBC 2.65 L Hgb 7.5 L Hct 21.9 L* MCV 83 MCH 28.3 MCHC 34.2 RDW Std Deviation 40.2 Plt Count 419 D Neut % (Auto) 82 H Lymph % (Auto) 11 [place] % (Auto) 6 Eos % (Auto) 0 Baso % (Auto) 0 Neut # (Auto) 8.4 H Lymph # (Auto) 1.1 [place] # (Auto) 0.7 Eos # (Auto) 0.0 Baso # (Auto) 0.0 Immature Gran # (Auto) 0.07 H Absolute Nucleated RBC 0.00 Immature Gran % 1 H Nucleated RBC % 0 PT 11.5 INR 1.1 APTT 30.8 Sodium 127 L Potassium 4.2 Chloride 100 Carbon Dioxide 17.0 L Anion Gap 10 BUN 68 H Creatinine 4.6 H* D Estim Creat Clear Calc 20.6 L eGFR 15 L BUN/Creatinine Ratio 15 Glucose 122 H Calculated Osmolality 275 Calcium 7.4 L Corrected Calcium 8.2 L Phosphorus 6.5 H Magnesium 2.1 Albumin 3.0 L Triglycerides 393 H ABG Interpretation ABG results: 12/21/23 12/24/23 12/25/23 15:50 19:45 02:34 ABG pH 7.40 7.23 L D ABG pCO2 40 56 H D ABG pO2 134 H 229 H D ABG HCO3 25 24 ABG O2 Saturation 99 H 100 H ABG Base Excess 0 -5 L VBG pH 7.48 VBG pCO2 35 L VBG pO2 56 VBG Base Excess 2 12/25/23 12/25/23 12/26/23 04:54 10:48 06:56 ABG pH 7.25 L 7.33 L 7.34 L ABG pCO2 52 H 45 43 ABG pO2 93 D 99 95 ABG HCO3 23 23 23 ABG O2 Saturation 97 98 98 ABG Base Excess -5 L -3 -2 VBG pH VBG pCO2 VBG pO2 VBG Base Excess 1001/05/24 01/06/24 10:15 08:13 13:50 ABG pH 7.36 7.37 7.42 ABG pCO2 41 38 30 L ABG pO2 87 75 L 90 ABG HCO3 23 22 19 L ABG O2 Saturation 98 96 98 ABG Base Excess -2 -3 -5 L VBG pH VBG pCO2 VBG pO2 VBG Base Excess 01/06/24 01/07/24 01/07/24 21:44 00:30 04:35 ABG pH 7.12 L* D 7.22 L D 7.27 L ABG pCO2 69 H D 52 H D 45 ABG pO2 261 H D 161 H D 209 H D ABG HCO3 22 21 21 ABG O2 Saturation 100 H 99 H 100 H ABG Base Excess -7 L -6 L -6 L VBG pH VBG pCO2 VBG pO2 VBG Base Excess 01/08/24 01/09/24 01/09/24 04:50 04:14 15:49 ABG pH 7.24 L 7.26 L 7.27 L ABG pCO2 47 50 H 51 H ABG pO2 97 D 97 90 ABG HCO3 20 22 23 ABG O2 Saturation 98 98 97 ABG Base Excess -7 L -5 L -4 L VBG pH VBG pCO2 VBG pO2 VBG Base Excess 01/10/24 01/11/24 01/12/24 04:52 04:35 05:24 ABG pH 7.33 L 7.34 L 7.31 L ABG pCO2 43 43 49 H ABG pO2 101 99 106 ABG HCO3 23 23 25 ABG O2 Saturation 98 98 98 ABG Base Excess -3 -3 -2 VBG pH VBG pCO2 VBG pO2 VBG Base Excess Quality Measures Quality Measures VTE prophylaxis (heparin subcutaneously) Assessment & Plan Assessment Current Active Medications: Generic Name Dose Route Start Last Admin Trade Name Freq PRN Reason Stop Dose Admin Acetaminophen 650 mg 01/24/24 23:23 01/26/24 21:09 Acetaminophen 325 Mg Tablet PO 02/21/24 20:48 650 mg Q6HR PRN Administration Pain Scale 1-3 or Fever >100.3 Amlodipine Besylate 10 mg 01/13/24 12:30 01/25/24 09:00 Amlodipine Besylate 5 Mg Tablet PO 02/12/24 12:29 10 mg QDAY TAL Administration Citric Acid/Sodium Citrate 30 ml 01/26/24 09:00 01/27/24 09:19 Citric Acid/Sodium Citr 15 Ml Udc (Bicitra) PO 02/25/24 08:59 Not Given BID TAL Dextrose 25 ml 01/04/24 14:37 Dextrose 50%-Water Inj 50 Ml Syringe IV 02/03/24 14:36 Q15MIN PRN BG 50-70 responsive npo pt Dextrose 50 ml 01/04/24 14:37 Dextrose 50%-Water Inj 50 Ml Syringe IV 02/03/24 14:36 Q15MIN PRN BG <50 OR BG <70 & pt unresponsive Glucagon 1 mg 01/07/24 11:34 Glucagon Inj 1 Mg Vial IM Q15MIN PRN BG <70, and no IV access Dextrose/Sodium Chloride 1,000 mls @ 75 mls/hr 01/25/24 21:30 01/27/24 05:04 D5-1/2ns IV 02/24/24 21:29 75 mls/hr .[id number] TAL Administration Levofloxacin/Dextrose 250 mg in 50 mls @ 50 mls/hr 01/26/24 11:30 01/27/24 09:18 Levaquin Ivpb IV 02/02/24 11:29 50 mls/hr QDAY TAL Administration Metronidazole 500 mg in 100 mls @ 200 mls/hr 01/26/24 11:30 01/27/24 05:04 Flagyl 500 Mg Iv IV 02/02/24 11:29 200 mls/hr Q8HR TAL Administration Insulin Glargine 10 unit 01/04/24 14:45 01/27/24 08:55 Insulin Glargine (Lantus) 5 Unit/0.05 Ml (Per 5 Units) SC 02/03/24 14:44 Not Given QDAY TAL Insulin Human Lispro 0 unit 01/20/24 17:00 01/27/24 08:54 Insulin Lispro (Admelog) 1 Unit/0.01 Ml Unit SC 02/19/24 05:59 Not Given ACHS [facility] Protocol Labetalol HCl 10 mg 01/05/24 19:16 01/13/24 13:24 Labetalol Inj 5 Mg/Ml Vial 20 Ml IVP 02/04/24 19:29 10 mg Q6H PRN Administration SBP >170, DBP>110 Melatonin 3 mg 12/28/23 21:00 01/26/24 20:54 Melatonin 3 Mg Tablet PO 01/27/24 20:59 3 mg HS TAL Administration Metoprolol Succinate 50 mg 01/26/24 09:00 01/27/24 09:19 Metoprolol Succinate Xl 25 Mg Tabcr PO 02/25/24 08:59 50 mg QDAY TAL Administration Mirtazapine 15 mg 01/23/24 21:00 01/26/24 20:54 Mirtazapine 15 Mg Tablet PO 02/22/24 20:59 15 mg HS TAL Administration Morphine Sulfate 2 mg 01/25/24 13:01 01/27/24 09:17 Morphine Sulf Inj 10 Mg/Ml Vial IVP 01/30/24 13:00 2 mg Q4HR PRN Administration PAIN SCALE 4-10(Mod-Sev Ondansetron HCl 4 mg 01/23/24 19:23 01/27/24 09:17 Ondansetron Inj 2 Mg/Ml Inj 2 Ml IV 02/22/24 19:22 4 mg Q6HR PRN Administration NAUSEA OR VOMITING Protocol Pantoprazole Sodium 40 mg 01/01/24 09:00 01/27/24 09:19 Pantoprazole Inj 40 Mg Vial IVP 01/31/24 08:59 40 mg QDAY TAL Administration Protocol Plan 43-year-old male with no significant past medical history who was admitted to the hospital by general surgery on 12/21/2023 for acute perforated appendicitis with multiple postop complications. #Sepsis likely secondary to acute perforated appendicitis #Acute perforated appendicitis #Small bowel perforation s/p ileostomy #Peritonitis #Subcapsular abscess s/p CT-guided drain placement #Subphrenic abscess, R ?Initially patient met SIRS 2 out of 4 with leukocytosis and tachycardia ?Patient underwent multiple surgical procedures including laparoscopic appendectomy on day of admission (12/21/2023), 2 ex laps (12/25/2023 and 01/06/2024), and additional secondary closure of abdomen incision (01/01/2024). ?Multiple blood cultures, urine cultures, sputum cultures, and abdominal wound cultures have come back negative ?Abdomen/pelvis CT on 01/12/2024 showed localized fluid collection on the right lower abdomen consistent with an abscess ?Patient had percutaneous drainage catheter taken out by IR as per general surgeon ?Patient has not been having good oral intake therefore TPN will be continued as per general surgeon -DC'd vancomycin (day 9) and Zosyn (day 8 of second treatment) -WBC 16.8 (uptrended) and still tachycardic -CT abdomen/pelvis (01/18/24) showed Right subphrenic abscess which is very small in thickness, 13 mm and abscess below the liver measures 8.4 x 11.5 x 3.8 cm -IR placed pleural drainage again on 01/20/2024 -DC'd meropenem [01/18/2024-01/26/2024] Plan: -Patient will have central placed and start TPN as per Dr. Rubio ?Recommend to encourage oral intake and advance diet as tolerated. -Recommend to follow ID recommendations on Antibiotic regimen, Flagyl and levaquin [01/26/24-] -Recommend flushing pleural drainage. ?Recommend wound care. ?Will continue to monitor for any spiking any fever or elevated WBC. -Patient was started on levofloxacin and metronidazole by ID. -Pending CTAP without contrast. #ANITHA #Likely ATN ?Creatinine worsened from 1.3 to 4.6 today -Likely ATN given multiple CT w contrast Plan: -Nephrology ordered nuclear medicine renal scan -Recommend to continue IV fluids as per nephrology -Recommend to continue Bicitra as per nephrology ?Avoid nephrotoxic agents. ?Renally dose medications. -Nephrology consulted, appreciate recommendations ?Will continue to monitor. #Sinus Tachycardia #Hypertension. - Possibly related pain from recent surgeries, less likely infectious - EKGs in december 2023 reveal sinus tachycardia Plan: -Discontinued amlodipine. -Continue metoprolol succinate to 50 mg daily. #Irritant contact dermatitis. -Patient developed an inner thigh rash most likely due to friction Plan: -Benadryl topical x1 #Normocytic normochromic anemia. ?Hgb 7.5 ?Most likely a component of some blood loss given multiple surgical procedures and hemodilution Plan: ?Recommend to transfuse if hemoglobin less than 7 ?Will continue to monitor #Hypokalemia, resolved #Hypomagnesemia #Hyponatremia. -Potassium 4.2, sodium 127, Mg 2.1 Plan: -Recommend to replete as necessary -Will continue to monitor #Acute hypoxic respiratory failure, resolved. #Pleural effusion, resolved. ?Patient was intubated in the ICU and was successfully extubated on 01/12/2024 ?Chest x-ray on 01/12/2024 showed no pneumonia and no right pleural fluid ?Patient had chest tube taken out by general surgeon -Will assess possibility to take chest tube out ?Checks x-ray 01/15/24 showed no pleural fluid Plan: ?Will continue to monitor Thank you for allowing us to be part of the patient's care. Disposition: Patient seen in telemetry, monitoring ADIS's, pain management, and oral intake. Diet: regular and protein supplement. GI prophylaxis: protonix. DVT prophylaxis: heparin sc. Code: Full code. Nutritional: Will Start TPN again. Case disclosed with Attending Dr. Abrams and My senior Dr. Carey PGY2 Cortez Harp PGY1 Attending Provider Attestation/Addendum 43-year-old male with no previous medical history admitted for abdominal pain by surgical team and noted to have perforated appendicitis status post surgical intervention on 12/21/2023. Patient noted to have prolonged hospital course with multiple intra-abdominal abscesses and multiple surgical intervention first being laparoscopic appendectomy on 12/21/2023 followed by 2 expiratory laparotomy on 12/25/2023 and 01/06/[address]-guided intra-abdominal drainage requiring TPN. As of now, patient continues to have wound VAC in place and surgical team on board. In addition, patient also on meropenem and continues to have IR guided catheter in place. Furthermore, patient also noted to have acute kidney injury previously with an elevation of creatinine 2.9 however down trended to 1.3. Will continue following the patient with surgical team and recommend continuing meropenem and close hemodynamic monitoring. Overnight, patient creatinine up trended to 2.4 unknown etiology at this point however patient is not on any nephrotoxic agents. Patient did not have any episodes of hypotension to suggest ATN. Creatinine kinase is normal. Patient has a wound VAC in place and low suspicion for abdominal compartment syndrome. Will consult nephrology and continue IV fluid resuscitation. I reviewed above note and agree with findings and plans. I have also personally examined the patient with medicine team and went over assessment and plan with medical team including international relations professor and resident physician.
--- NOTE | 2024-01-27 12:28 | PC.NURSE ---
Iman vazquez changed wound vac.
--- NOTE | 2024-01-27 12:47 | ESPR_ITS ---
Documentation for date of: 01/27/24 Subjective Subjective Interval history: Mr. Morales is a 43-year-old gentleman with no past medical history presented to [facility] on 12/21/2023 with perforated appendicitis with free purulent material in abdomen, underwent laparoscopic appendectomy 12/21/2023. repeat CT A/P showed pneumoperitoneum,so he had exploratory laparotomy on 12/23 and was found to have small bowel perforation, washout was performed & subsequent diverting ileostomy and wound VAC. 12/28: CT-guided percutaneous drainage catheter placed for subphrenic abscess. 12/31 underwent secondary closure of abdominal incision. 01/06/24 patient was taken to the OR. Findings:Purulent material was seen which was whitish and not foul-smelling, sutures removed, irrigated the wound extensively with saline solution and left #19 round [place] on the right gutter, then the wound was closed with wound VAC leaving the fascia completely open. Patient tolerated the procedure well and left operating room in stable condition. Patient was in ICU for septic shock. Intubated and subsequently extubated. Transferred to medical floor. Has been receiving significant amount of antibiotics. Currently with ileostomy, VANESSA drain, open wound with wound VAC. Nephrology consultation requested for elevated BUN and creatinine. 01/25/2024 WBC 17.6, hemoglobin 7.4, platelets 392. Sodium 126, potassium 4.2, bicarbonate 18.7, BUN 40, creatinine 2.6, calcium 8.3, phosphorus 4.5, albumin 3.2 urinalysis shows 2+ protein 2+ blood with 72 RBCs and budding yeast. Abdominal CT on 01/21 showed subphrenic abscess. His current medications included amlodipine, metoprolol, Remeron, morphine as needed 01/25: Patient seen on the floors, resting in bed. Patient looks uncomfortable, ill-appearing. BUN 56, creatinine 3.5, eGFR 21. Patient complains of severe nausea and vomiting, unable to tolerate p.o. intake including liquids. Patient has Zofran on board as needed. 01/26: Patient seen and examined on the floors, resting in bed. Patient looks uncomfortable and ill-appearing. Patient complains of severe nausea and vomiting despite treatment with Zofran and Reglan. BUN 68, creatinine 4.6, eGFR 15. Plan to start patient on TPN, central line to be placed. Patient to go for nuclear medicine renal scan to assess for function, potential need for dialysis. Suspect ATN due to dehydration in setting of increased output and decreased p.o. intake. 1.4 L total output: 0.3 L stool output, 1.1 L urine output. Exam Vital Signs Temp Pulse Resp BP Pulse Ox O2 Del Method O2 Flow Rate 97.5 F 102 H 20 126/82 97 Room Air 3 01/27/24 07:56 01/27/24 09:19 01/27/24 07:56 01/27/24 09:19 01/27/24 07:56 01/27/24 07:56 01/26/24 15:28 FiO2 30 01/20/24 16:00 Narrative Exam GENERAL APPEARANCE: Sick looking gentleman currently seen in telemetry CARDIOVASCULAR: Heart regular, no murmurs, tachycardia LUNGS/CHEST: Chest clear to auscultation. No rales, rhonchi, wheezing ABDOMEN: S/p diversion ileostomy, wound VAC, VANESSA drain. Diffuse tenderness. EXTREMITIES: No edema, clubbing or cyanosis. SKIN: Skin exam normal without any rashes MUSCULOSKELETAL: In bed NEUROLOGICAL : No neurological deficits, alert and awake Objective Labs 01/27/24 05:39 01/27/24 05:39 Labs: Laboratory Results - last 24 hr 01/26/24 01/27/24 07:00 05:39 WBC 10.3 RBC 2.65 L Hgb 7.5 L Hct 21.9 L* MCV 83 MCH 28.3 MCHC 34.2 RDW Std Deviation 40.2 Plt Count 419 D Neut % (Auto) 82 H Lymph % (Auto) 11 [place] % (Auto) 6 Eos % (Auto) 0 Baso % (Auto) 0 Neut # (Auto) 8.4 H Lymph # (Auto) 1.1 [place] # (Auto) 0.7 Eos # (Auto) 0.0 Baso # (Auto) 0.0 Immature Gran # (Auto) 0.07 H Absolute Nucleated RBC 0.00 Immature Gran % 1 H Nucleated RBC % 0 PT 11.5 INR 1.1 APTT 30.8 Sodium 127 L Potassium 4.2 Chloride 100 Carbon Dioxide 17.0 L Anion Gap 10 BUN 68 H Creatinine 4.6 H* D Estim Creat Clear Calc 20.6 L eGFR 15 L BUN/Creatinine Ratio 15 Glucose 122 H Calculated Osmolality 275 Calcium 7.4 L Corrected Calcium 8.2 L Phosphorus 6.5 H Magnesium 2.1 Albumin 3.0 L Triglycerides 393 H ABG Interpretation ABG results: 12/21/23 12/24/23 12/25/23 15:50 19:45 02:34 ABG pH 7.40 7.23 L D ABG pCO2 40 56 H D ABG pO2 134 H 229 H D ABG HCO3 25 24 ABG O2 Saturation 99 H 100 H ABG Base Excess 0 -5 L VBG pH 7.48 VBG pCO2 35 L VBG pO2 56 VBG Base Excess 2 12/25/23 12/25/23 12/26/23 04:54 10:48 06:56 ABG pH 7.25 L 7.33 L 7.34 L ABG pCO2 52 H 45 43 ABG pO2 93 D 99 95 ABG HCO3 23 23 23 ABG O2 Saturation 97 98 98 ABG Base Excess -5 L -3 -2 VBG pH VBG pCO2 VBG pO2 VBG Base Excess 12/26/23 01/05/24 01/06/24 10:15 08:13 13:50 ABG pH 7.36 7.37 7.42 ABG pCO2 41 38 30 L ABG pO2 87 75 L 90 ABG HCO3 23 22 19 L ABG O2 Saturation 98 96 98 ABG Base Excess -2 -3 -5 L VBG pH VBG pCO2 VBG pO2 VBG Base Excess 01/06/24 01/07/24 01/07/24 21:44 00:30 04:35 ABG pH 7.12 L* D 7.22 L D 7.27 L ABG pCO2 69 H D 52 H D 45 ABG pO2 261 H D 161 H D 209 H D ABG HCO3 22 21 21 ABG O2 Saturation 100 H 99 H 100 H ABG Base Excess -7 L -6 L -6 L VBG pH VBG pCO2 VBG pO2 VBG Base Excess 01/08/24 01/09/24 01/09/24 04:50 04:14 15:49 ABG pH 7.24 L 7.26 L 7.27 L ABG pCO2 47 50 H 51 H ABG pO2 97 D 97 90 ABG HCO3 20 22 23 ABG O2 Saturation 98 98 97 ABG Base Excess -7 L -5 L -4 L VBG pH VBG pCO2 VBG pO2 VBG Base Excess 01/10/24 01/11/24 01/12/24 04:52 04:35 05:24 ABG pH 7.33 L 7.34 L 7.31 L ABG pCO2 43 43 49 H ABG pO2 101 99 106 ABG HCO3 23 23 25 ABG O2 Saturation 98 98 98 ABG Base Excess -3 -3 -2 VBG pH VBG pCO2 VBG pO2 VBG Base Excess Quality Measures Quality Measures VTE prophylaxis (heparin subcutaneously) Assessment & Plan Assessment Current Active Medications: Generic Name Dose Route Start Last Admin Trade Name Freq PRN Reason Stop Dose Admin Acetaminophen 650 mg 01/24/24 23:23 01/26/24 21:09 Acetaminophen 325 Mg Tablet PO 02/21/24 20:48 650 mg Q6HR PRN Administration Pain Scale 1-3 or Fever >100.3 Amlodipine Besylate 10 mg 01/13/24 12:30 01/25/24 09:00 Amlodipine Besylate 5 Mg Tablet PO 02/12/24 12:29 10 mg QDAY TAL Administration Citric Acid/Sodium Citrate 30 ml 01/26/24 09:00 01/27/24 09:19 Citric Acid/Sodium Citr 15 Ml Udc (Bicitra) PO 02/25/24 08:59 Not Given BID TAL Dextrose 25 ml 01/04/24 14:37 Dextrose 50%-Water Inj 50 Ml Syringe IV 02/03/24 14:36 Q15MIN PRN BG 50-70 responsive npo pt Dextrose 50 ml 01/04/24 14:37 Dextrose 50%-Water Inj 50 Ml Syringe IV 02/03/24 14:36 Q15MIN PRN BG <50 OR BG <70 & pt unresponsive Glucagon 1 mg 01/07/24 11:34 Glucagon Inj 1 Mg Vial IM Q15MIN PRN BG <70, and no IV access Dextrose/Sodium Chloride 1,000 mls @ 75 mls/hr 01/25/24 21:30 01/27/24 05:04 D5-1/2ns IV 02/24/24 21:29 75 mls/hr .[id number] TAL Administration Levofloxacin/Dextrose 250 mg in 50 mls @ 50 mls/hr 01/26/24 11:30 01/27/24 09:18 Levaquin Ivpb IV 02/02/24 11:29 50 mls/hr QDAY TAL Administration Metronidazole 500 mg in 100 mls @ 200 mls/hr 01/26/24 11:30 01/27/24 05:04 Flagyl 500 Mg Iv IV 02/02/24 11:29 200 mls/hr Q8HR TAL Administration Insulin Glargine 10 unit 01/04/24 14:45 01/27/24 08:55 Insulin Glargine (Lantus) 5 Unit/0.05 Ml (Per 5 Units) SC 02/03/24 14:44 Not Given QDAY TAL Insulin Human Lispro 0 unit 01/20/24 17:00 01/27/24 12:27 Insulin Lispro (Admelog) 1 Unit/0.01 Ml Unit SC 02/19/24 05:59 Not Given ACHS TAL Protocol Labetalol HCl 10 mg 01/05/24 19:16 01/13/24 13:24 Labetalol Inj 5 Mg/Ml Vial 20 Ml IVP 02/04/24 19:29 10 mg Q6H PRN Administration SBP >170, DBP>110 Melatonin 3 mg 12/28/23 21:00 01/26/24 20:54 Melatonin 3 Mg Tablet PO 01/27/24 20:59 3 mg HS TAL Administration Metoprolol Succinate 50 mg 01/26/24 09:00 01/27/24 09:19 Metoprolol Succinate Xl 25 Mg Tabcr PO 02/25/24 08:59 50 mg QDAY TAL Administration Mirtazapine 15 mg 01/23/24 21:00 01/26/24 20:54 Mirtazapine 15 Mg Tablet PO 02/22/24 20:59 15 mg HS TAL Administration Morphine Sulfate 2 mg 01/25/24 13:01 01/27/24 09:17 Morphine Sulf Inj 10 Mg/Ml Vial IVP 01/30/24 13:00 2 mg Q4HR PRN Administration PAIN SCALE 4-10(Mod-Sev Ondansetron HCl 4 mg 01/23/24 19:23 01/27/24 09:17 Ondansetron Inj 2 Mg/Ml Inj 2 Ml IV 02/22/24 19:22 4 mg Q6HR PRN Administration NAUSEA OR VOMITING Protocol Pantoprazole Sodium 40 mg 01/01/24 09:00 01/27/24 09:19 Pantoprazole Inj 40 Mg Vial IVP 01/31/24 08:59 40 mg QDAY TAL Administration Protocol Plan 43-year-old male with no significant past medical history who was admitted to the hospital by general surgery on 12/21/2023 for acute perforated appendicitis with multiple postop complications. #Acute kidney injury. #Suspected acute renal failure. Patient has no history of CKD. Patient has acutely worsening renal function: On 01/22 BUN 36, creatinine 1.3, eGFR greater than 60. 01/25 BUN 56, creatinine 3.5, eGFR 21. Patient has increased GI losses, wound VAC end ileostomy. Patient has very poor p.o. intake due to severe nausea and vomiting, unable to tolerate oral fluids. Patient receiving IVF. Nuclear medicine renal scan to assess renal function, potential need for dialysis. Patient to be started on TPN due to severe nausea/vomiting, poor p.o. intake. Plan: -IVF: Normal saline at 120 cc/h. -Monitor/electrolytes as needed -Avoid nephrotoxic agents. -renally dose medications. -Will continue to monitor. -Nuclear medicine renal scan pending, follow-up #Sepsis likely secondary to acute perforated appendicitis #Acute perforated appendicitis #Small bowel perforation s/p ileostomy #Peritonitis #Subcapsular abscess s/p CT-guided drain placement #Subphrenic abscess, R #Sinus Tachycardia. #Hypertension. #Irritant contact dermatitis. #Normocytic normochromic anemia. #Acute hypoxic respiratory failure, resolved. #Pleural effusion, resolved. Management as per primary team. Diet: regular with protein supplement. GI prophylaxis: protonix. DVT prophylaxis: heparin Code: Full code. Thank you for allow me to precipitate in the care of this patient. Plan of care discussed with attending Dr. Covarrubias. Kris Fuentes MD PGY-1 Attending Provider Attestation/Addendum patient seen and examined with resident physician Dr. Fuentes. Note reviewed, agree with findings and recommendations with changes made. Patient currently seems to be in ATN phase. Rapid worsening of creatinine. Urine output acceptable at [address] Weiss-continue with the TPN. Renal scan ordered. Might need temporary dialysis if no improvement in azotemia. Will monitor strict I&O's. Spoke to primary team.
[2024-01-27] MEDS: HEPARIN SOD LOCK SYR 100 UNIT/ML 500 UNIT STFIELD (13:39)
[2024-01-27] MEDS: fentaNYL CIT INJ 50 mCg/ML AMP 2ML IVP (13:40)
[2024-01-27] MEDS: LIDOCAINE INJ PF 1% 30 ML VIAL 5 ML INFL (13:41)
--- NOTE | 2024-01-27 14:15 | PC.NURSE ---
hand off report give to nely vazquez. patient transfered to room via gurney. dressing is clean dry and intact. 7fr triple lumen central catheter inserted in the right ij 20cm in length
--- NOTE | 2024-01-27 17:48 | ESPR_ITS ---
Documentation for date of: 01/27/24 Subjective Subjective Brief History: As above Narrative: The patient is not able to eat and is nauseated and vomiting intermittently Exam Vital Signs Temp Pulse Resp BP Pulse Ox O2 Del Method O2 Flow Rate 97.4 F 104 H 21 H 138/88 H 98 Room Air 2 01/27/24 16:00 01/27/24 16:00 01/27/24 16:00 01/27/24 16:00 01/27/24 16:00 01/27/24 16:00 01/27/24 13:40 FiO2 30 01/20/24 16:00 His vital signs are normal other than tachycardia Routine Abdominal Exam Comments: Abdominal examination is unchanged. The wound is getting smaller and the ileostomy is draining Results Results: Laboratory Laboratory Narrative: Laboratory results showed deteriorating renal function obviously due to ATN Assessment & Plan Assessment Additional comments: Impression: ATN following a prolonged course of infection in the abdomen Inability to eat due to lack of appetite Plan Plan: Because of his inability to eat we have started him on TPN tonight. Central line has been inserted. We shall follow closely with nutrition support and ask payroll assistant to scope him to find out if there is any recent he could not eat. Procedures Procedures Exploratory laparotomy and drainage of the subcutaneous infection and wound VAC application
[2024-01-27] MEDS: CALCIUM GLUCONATE IV (17:59)
[2024-01-27] MEDS: [UNRECOGNIZED DRUG - OTHER] IV (17:59)
[2024-01-27] MEDS: MULTIVITAMIN IV (17:59)
[2024-01-27] MEDS: SODIUM ACET ADDITIVE IV (17:59)
[2024-01-27] MEDS: MIRTAZAPINE 15 MG TABLET PO (20:46)
[2024-01-28] VITALS (9 sets, daily range): BP systolic 123–138; BP diastolic 83–88; PULSE 103–108; RESP 17–24; TEMP 36.2–37.2; O2SAT 95–100
[2024-01-28] MEDS: METOCLOPRAMIDE INJ 5 MG/ML VIAL 2 ML IVP ×5 (00:41→23:34)
[2024-01-28] MEDS: INSULIN LISPRO (AdmeLOG) 1 UNIT/0.01 ML UNIT SC ×5 (00:42→23:33)
[2024-01-28] MEDS: metroNIDAZOLE/NS 500 MG IVPB 500 MG/100 ML BAG 200 MG IV ×3 (05:12→21:09)
[2024-01-28] MEDS: MORPHINE SULF INJ 10 MG/ML VIAL 2 MG IVP (05:19)
[2024-01-28 05:53] LABS: Basophils % (Auto) 0 % (0-2.5); Eosinophils % (Auto) 0 % (0-10); Hematocrit 23.8 % (41.0-53.0); Immature Granulocytes % (Auto) 1 % (0-0); Immature Granulocytes Auto 0.08 Thou/mm3 (0.00-0.00); Lymphocytes # (Auto) 1.5 Thou/mm3 (1.0-4.8); Lymphocytes % (Auto) 13 % (10-50); Mean Corpuscular Hemoglobin 27.6 pg (25.0-35.0); Mean Corpuscular Volume 81 fL (80-100); Monocytes # (Auto) 0.9 Thou/mm3 (0.0-0.8); Monocytes % (Auto) 8 % (0-12); Neutrophils # (Auto) 8.4 Thou/mm3 (1.8-7.7); Neutrophils % (Auto) 77 % (37-80); Nucleated Red Blood Cell % 0 /100 WBC (0); Platelet Count 480 Thou/mm3 (140-440); RDW Standard Deviation 40.2 fL (35.1-43.9); Red Blood Count 2.93 Miln/mm3 (4.50-5.90); White Blood Count 10.9 Thou/mm3 (3.8-10.6)
[2024-01-28 05:54] LABS: Hemoglobin 8.1 g/dL (13.5-16.0)
[2024-01-28 06:23] LABS: Albumin, Serum 2.7 gm/dL (3.5-5.0); Anion Gap 12 (7-16); BUN/Creatinine Ratio 18 Ratio (12-20); Blood Urea Nitrogen 84 mg/dL (9-23); Calcium (Corrected) 7.7 mg/dL (8.5-10.1); Carbon Dioxide 16.9 mMol/L (20.0-31.0); Chloride 100 mMol/L (98-107); Creatinine (Component) 4.6 mg/dL (0.6-1.3); Estimated Creatinine Clearance 20.6 mL/min (>60); Glucose 156 mg/dL (74-106); Magnesium 1.8 mg/dL (1.6-2.6); Osmolality,Calculated 287 (275-295); Phosphorous 6.5 mg/dL (2.4-5.1); Potassium 3.7 mMol/L (3.4-5.1); Sodium 129 mMol/L (136-145); eGFR 15 See Note
[2024-01-28 06:25] LABS: Calcium 6.7 mg/dL (8.3-10.6)
[2024-01-28] MEDS: PANTOPRAZOLE INJ 40 MG VIAL IVP (09:11)
[2024-01-28] MEDS: METOPROLOL SUCCINATE XL 25 MG TABCR 50 MG PO (09:11)
[2024-01-28] MEDS: INSULIN GLARGINE (Lantus) 5 UNIT/0.05 ML (PER 5 UNITS) 10 UNIT SC (09:12)
[2024-01-28] MEDS: LEVOFLOXACIN/D5W 250MG IVPB 250 MG/50 ML BAG 50 MG IV (09:12)
[2024-01-28] MEDS: CITRIC ACID/SODIUM CITR 15 ML UDC (BICITRA) 30 ML PO ×2 (09:14→21:09)
--- NOTE | 2024-01-28 10:04 | ESPR_ITS ---
Documentation for date of: 01/28/24 Subjective Subjective Interval history: Mr. Morales is a 43-year-old gentleman with no past medical history presented to [facility] on 12/21/2023 with perforated appendicitis with free purulent material in abdomen, underwent laparoscopic appendectomy 12/21/[address]23. repeat CT A/P showed pneumoperitoneum,so he had exploratory laparotomy on 12/23 and was found to have small bowel perforation, washout was performed & subsequent diverting ileostomy and wound VAC. 12/28: CT-guided percutaneous drainage catheter placed for subphrenic abscess. 12/31 underwent secondary closure of abdominal incision. 01/06/24 patient was taken to the OR. Findings:Purulent material was seen which was whitish and not foul-smelling, sutures removed, irrigated the wound extensively with saline solution and left #19 round [place] on the right gutter, then the wound was closed with wound VAC leaving the fascia completely open. Patient tolerated the procedure well and left operating room in stable condition. Patient was in ICU for septic shock. Intubated and subsequently extubated. Transferred to medical floor. Has been receiving significant amount of antibiotics. Currently with ileostomy, VANESSA drain, open wound with wound VAC. Nephrology consultation requested for elevated BUN and creatinine. 01/25/2024 WBC 17.6, hemoglobin 7.4, platelets 392. Sodium 126, potassium 4.2, bicarbonate 18.7, BUN 40, creatinine 2.6, calcium 8.3, phosphorus 4.5, albumin 3.2 urinalysis shows 2+ protein 2+ blood with 72 RBCs and budding yeast. Abdominal CT on 01/21 showed subphrenic abscess. His current medications included amlodipine, metoprolol, Remeron, morphine as needed 01/25: Patient seen on the floors, resting in bed. Patient looks uncomfortable, ill-appearing. BUN 56, creatinine 3.5, eGFR 21. Patient complains of severe nausea and vomiting, unable to tolerate p.o. intake including liquids. Patient has Zofran on board as needed. 01/26: Patient seen and examined on the floors, resting in bed. Patient looks uncomfortable and ill-appearing. Patient complains of severe nausea and vomiting despite treatment with Zofran and Reglan. BUN 68, creatinine 4.6, eGFR 15. Plan to start patient on TPN, central line to be placed. Patient to go for nuclear medicine renal scan to assess for function, potential need for dialysis. Suspect ATN due to dehydration in setting of increased output and decreased p.o. intake. 1.4 L total output: 0.3 L stool output, 1.1 L urine output. 01/27: Patient seen and examined on floors, resting in bed. Patient comfortable, appears more awake than previous exams. Patient still notes severe nausea and vomiting, currently receiving TPN. Nuclear medicine renal scan pending. 1.4 L output: Drainage of milliliters stool, 900 mL urine. Hemoglobin 8.1. Sodium 129, potassium 3.7, bicarb 16.9, BUN 84, creatinine 4.6, EGFR 58. Exam Vital Signs Temp Pulse Resp BP Pulse Ox O2 Del Method O2 Flow Rate 97.6 F 104 H 18 130/84 97 Room Air 2 01/28/24 08:00 01/28/24 09:11 01/28/24 08:00 01/28/24 09:11 01/28/24 08:00 01/28/24 08:00 01/27/24 13:40 FiO2 30 01/20/24 16:00 Narrative Exam GENERAL APPEARANCE: Sick looking gentleman currently seen in telemetry CARDIOVASCULAR: Heart regular, no murmurs, tachycardia LUNGS/CHEST: Chest clear to auscultation. No rales, rhonchi, wheezing ABDOMEN: S/p diversion ileostomy, wound VAC, VANESSA drain. Diffuse tenderness. EXTREMITIES: No edema, clubbing or cyanosis. SKIN: Skin exam normal without any rashes MUSCULOSKELETAL: In bed NEUROLOGICAL : No neurological deficits, alert and awake Objective Labs 01/28/24 05:26 01/28/24 05:26 Labs: Laboratory Results - last 24 hr 01/28/24 05:26 WBC 10.9 H RBC 2.93 L Hgb 8.1 L Hct 23.8 L MCV 81 MCH 27.6 MCHC 34.0 RDW Std Deviation 40.2 Plt Count 480 H D Neut % (Auto) 77 Lymph % (Auto) 13 [place] % (Auto) 8 Eos % (Auto) 0 Baso % (Auto) 0 Neut # (Auto) 8.4 H Lymph # (Auto) 1.5 [place] # (Auto) 0.9 H Eos # (Auto) 0.0 Baso # (Auto) 0.0 Immature Gran # (Auto) 0.08 H Absolute Nucleated RBC 0.00 Immature Gran % 1 H Nucleated RBC % 0 Sodium 129 L Potassium 3.7 D Chloride 100 Carbon Dioxide 16.9 L Anion Gap 12 BUN 84 H Creatinine 4.6 H* Estim Creat Clear Calc 20.6 L eGFR 15 L BUN/Creatinine Ratio 18 Glucose 156 H Calculated Osmolality 287 Calcium 6.7 L* Corrected Calcium 7.7 L Phosphorus 6.5 H Magnesium 1.8 Albumin 2.7 L ABG Interpretation ABG results: 12/21/23 12/24/23 12/25/23 15:50 19:45 02:34 ABG pH 7.40 7.23 L D ABG pCO2 40 56 H D ABG pO2 134 H 229 H D ABG HCO3 25 24 ABG O2 Saturation 99 H 100 H ABG Base Excess 0 -5 L VBG pH 7.48 VBG pCO2 35 L VBG pO2 56 VBG Base Excess 2 12/25/23 12/25/23 12/26/23 04:54 10:48 06:56 ABG pH 7.25 L 7.33 L 7.34 L ABG pCO2 52 H 45 43 ABG pO2 93 D 99 95 ABG HCO3 23 23 23 ABG O2 Saturation 97 98 98 ABG Base Excess -5 L -3 -2 VBG pH VBG pCO2 VBG pO2 VBG Base Excess 12/26/23 01/05/24 01/06/24 10:15 08:13 13:50 ABG pH 7.36 7.37 7.42 ABG pCO2 41 38 30 L ABG pO2 87 75 L 90 ABG HCO3 23 22 19 L ABG O2 Saturation 98 96 98 ABG Base Excess -2 -3 -5 L VBG pH VBG pCO2 VBG pO2 VBG Base Excess 01/06/24 01/07/24 01/07/24 21:44 00:30 04:35 ABG pH 7.12 L* D 7.22 L D 7.27 L ABG pCO2 69 H D 52 H D 45 ABG pO2 261 H D 161 H D 209 H D ABG HCO3 22 21 21 ABG O2 Saturation 100 H 99 H 100 H ABG Base Excess -7 L -6 L -6 L VBG pH VBG pCO2 VBG pO2 VBG Base Excess 01/08/24 01/09/24 01/09/24 04:50 04:14 15:49 ABG pH 7.24 L 7.26 L 7.27 L ABG pCO2 47 50 H 51 H ABG pO2 97 D 97 90 ABG HCO3 20 22 23 ABG O2 Saturation 98 98 97 ABG Base Excess -7 L -5 L -4 L VBG pH VBG pCO2 VBG pO2 VBG Base Excess 01/10/24 01/11/24 01/12/24 04:52 04:35 05:24 ABG pH 7.33 L 7.34 L 7.31 L ABG pCO2 43 43 49 H ABG pO2 101 99 106 ABG HCO3 23 23 25 ABG O2 Saturation 98 98 98 ABG Base Excess -3 -3 -2 VBG pH VBG pCO2 VBG pO2 VBG Base Excess Quality Measures Quality Measures VTE prophylaxis (heparin subcutaneously) Assessment & Plan Assessment Current Active Medications: Generic Name Dose Route Start Last Admin Trade Name Freq PRN Reason Stop Dose Admin Acetaminophen 650 mg 01/24/24 23:23 01/26/24 21:09 Acetaminophen 325 Mg Tablet PO 02/21/24 20:48 650 mg Q6HR PRN Administration Pain Scale 1-3 or Fever >100.3 Amlodipine Besylate 10 mg 01/13/24 12:30 01/25/24 09:00 Amlodipine Besylate 5 Mg Tablet PO 02/12/24 12:29 10 mg QDAY TAL Administration Citric Acid/Sodium Citrate 30 ml 01/26/24 09:00 01/28/24 09:14 Citric Acid/Sodium Citr 15 Ml Udc (Bicitra) PO 02/25/24 08:59 30 ml BID TAL Administration Dextrose 25 ml 01/04/24 14:37 Dextrose 50%-Water Inj 50 Ml Syringe IV 02/03/24 14:36 Q15MIN PRN BG 50-70 responsive npo pt Dextrose 50 ml 01/04/24 14:37 Dextrose 50%-Water Inj 50 Ml Syringe IV 02/03/24 14:36 Q15MIN PRN BG <50 OR BG <70 & pt unresponsive Glucagon 1 mg 01/07/24 11:34 Glucagon Inj 1 Mg Vial IM Q15MIN PRN BG <70, and no IV access Levofloxacin/Dextrose 250 mg in 50 mls @ 50 mls/hr 01/26/24 11:30 01/28/24 09:12 Levaquin Ivpb IV 02/02/24 11:29 50 mls/hr QDAY TAL Administration Metronidazole 500 mg in 100 mls @ 200 mls/hr 01/26/24 11:30 01/28/24 05:12 Flagyl 500 Mg Iv IV 02/02/24 11:29 200 mls/hr Q8HR TAL Administration Fat Emulsion-[place] Oil/Soybean Oil 500 mls @ 32 mls/hr 01/28/24 18:00 Clinopid 20% Iv IV 02/27/24 17:59 We@1800 TAL Amino Acids 1,000 mls @ 100 mls/hr 01/28/24 10:01 Clinimix 5/20 IV 01/28/24 17:59 QDAY@1800 TAL Sodium Acetate 40 meq/ Calcium 1,054 mls @ 100 mls/hr 01/28/24 18:00 Gluconate 1 gm/ Multivitamins IV 01/29/24 04:32 /Minerals 10 ml/ Potassium QDAY@1800 ONE Acetate 20 meq/ Magnesium Sulfate 2 gm/ Amino Acids Insulin Glargine 10 unit 01/04/24 14:45 01/28/24 09:12 Insulin Glargine (Lantus) 5 Unit/0.05 Ml (Per 5 Units) SC 02/03/24 14:44 10 unit QDAY TAL Administration Insulin Human Lispro 0 unit 01/28/24 00:00 01/28/24 05:19 Insulin Lispro (Admelog) 1 Unit/0.01 Ml Unit SC 02/27/24 00:00 1 unit Q6HR TAL Administration Protocol Labetalol HCl 10 mg 01/05/24 19:16 01/13/24 13:24 Labetalol Inj 5 Mg/Ml Vial 20 Ml IVP 02/04/24 19:29 10 mg Q6H PRN Administration SBP >170, DBP>110 Metoclopramide HCl 5 mg 01/27/24 18:00 01/28/24 05:12 Metoclopramide Inj 5 Mg/Ml Vial 2 Ml IVP 02/26/24 17:59 5 mg Q6HR TAL Administration Protocol Metoprolol Succinate 50 mg 01/26/24 09:00 01/28/24 09:11 Metoprolol Succinate Xl 25 Mg Tabcr PO 02/25/24 08:59 50 mg QDAY TAL Administration Mirtazapine 15 mg 01/23/24 21:00 01/27/24 20:46 Mirtazapine 15 Mg Tablet PO 02/22/24 20:59 15 mg HS TAL Administration Morphine Sulfate 1 mg 01/28/24 08:47 Morphine Sulf Inj 10 Mg/Ml Vial IVP 02/02/24 08:46 Q4HR PRN PAIN SCALE 4-10(Mod-Sev Ondansetron HCl 4 mg 01/23/24 19:23 01/27/24 09:17 Ondansetron Inj 2 Mg/Ml Inj 2 Ml IV 02/22/24 19:22 4 mg Q6HR PRN Administration NAUSEA OR VOMITING Protocol Pantoprazole Sodium 40 mg 01/01/24 09:00 01/28/24 09:11 Pantoprazole Inj 40 Mg Vial IVP 01/31/24 08:59 40 mg QDAY TAL Administration Protocol Plan 43-year-old male with no significant past medical history who was admitted to the hospital by general surgery on 12/21/2023 for acute perforated appendicitis with multiple postop complications. #Acute kidney injury. #Suspected acute renal failure. Patient has no history of CKD. Patient has acutely worsening renal function: On 01/22 BUN 36, creatinine 1.3, eGFR greater than 60. 01/25 BUN 56, creatinine 3.5, eGFR 21. Patient has increased GI losses, wound VAC end ileostomy. Patient has very poor p.o. intake due to severe nausea and vomiting, unable to tolerate oral fluids. Patient receiving IVF. Nuclear medicine renal scan to assess renal function, potential need for dialysis. Patient to be started on TPN due to severe nausea/vomiting, poor p.o. intake. Plan: -TPN -Monitor/electrolytes as needed -Avoid nephrotoxic agents. -renally dose medications. -Will continue to monitor. -Nuclear medicine renal scan pending, follow-up #Sepsis likely secondary to acute perforated appendicitis #Acute perforated appendicitis #Small bowel perforation s/p ileostomy #Peritonitis #Subcapsular abscess s/p CT-guided drain placement #Subphrenic abscess, R #Sinus Tachycardia. #Hypertension. #Irritant contact dermatitis. #Normocytic normochromic anemia. #Acute hypoxic respiratory failure, resolved. #Pleural effusion, resolved. Management as per primary team. Diet: regular with protein supplement. GI prophylaxis: protonix. DVT prophylaxis: heparin Code: Full code. Thank you for allow me to precipitate in the care of this patient. Plan of care discussed with attending Dr. Covarrubias. Kris Fuentes MD PGY-1 Attending Provider Attestation/Addendum Patient seen and examined with resident physician Dr. Fuentes. Note reviewed, agree with findings and recommendations. Patient's BUN and creatinine still remains elevated. Renal scan findings consistent with ATN. Will take a few days to recover. No need for emergency. Patient has good urinary output. Will monitor closely. Currently on TPN. He is in better spirits today.
[2024-01-28] MEDS: [UNRECOGNIZED DRUG - OTHER] IV (12:03)
[2024-01-28] MEDS: AMINO ACID IV (12:03)
--- NOTE | 2024-01-28 13:25 | ESPR_ITS ---
Subjective Subjective Interval history: cx remain neg. on potentially po rx. it is empirical Exam Vital Signs Temp Pulse Resp BP Pulse Ox O2 Del Method O2 Flow Rate 97.4 F 107 H 22 H 123/83 100 Room Air 2 01/28/24 11:57 01/28/24 11:57 01/28/24 11:57 01/28/24 11:57 01/28/24 11:57 01/28/24 11:57 01/27/24 13:40 FiO2 30 01/20/24 16:00 Narrative Exam out for ct scan per , so unable to see today Objective - Internal Medicine Labs 01/28/24 05:26 01/28/24 05:26 Labs: Laboratory Results - last 24 hr 01/28/24 05:26 WBC 10.9 H RBC 2.93 L Hgb 8.1 L Hct 23.8 L MCV 81 MCH 27.6 MCHC 34.0 RDW Std Deviation 40.2 Plt Count 480 H D Neut % (Auto) 77 Lymph % (Auto) 13 [place] % (Auto) 8 Eos % (Auto) 0 Baso % (Auto) 0 Neut # (Auto) 8.4 H Lymph # (Auto) 1.5 [place] # (Auto) 0.9 H Eos # (Auto) 0.0 Baso # (Auto) 0.0 Immature Gran # (Auto) 0.08 H Absolute Nucleated RBC 0.00 Immature Gran % 1 H Nucleated RBC % 0 Sodium 129 L Potassium 3.7 D Chloride 100 Carbon Dioxide 16.9 L Anion Gap 12 BUN 84 H Creatinine 4.6 H* Estim Creat Clear Calc 20.6 L eGFR 15 L BUN/Creatinine Ratio 18 Glucose 156 H Calculated Osmolality 287 Calcium 6.7 L* Corrected Calcium 7.7 L Phosphorus 6.5 H Magnesium 1.8 Albumin 2.7 L ABG Interpretation ABG results: 12/21/23 12/24/23 12/25/23 15:50 19:45 02:34 ABG pH 7.40 7.23 L D ABG pCO2 40 56 H D ABG pO2 134 H 229 H D ABG HCO3 25 24 ABG O2 Saturation 99 H 100 H ABG Base Excess 0 -5 L VBG pH 7.48 VBG pCO2 35 L VBG pO2 56 VBG Base Excess 2 12/25/23 12/25/23 12/26/23 04:54 10:48 06:56 ABG pH 7.25 L 7.33 L 7.34 L ABG pCO2 52 H 45 43 ABG pO2 93 D 99 95 ABG HCO3 23 23 23 ABG O2 Saturation 97 98 98 ABG Base Excess -5 L -3 -2 VBG pH VBG pCO2 VBG pO2 VBG Base Excess 12/26/23 01/05/24 01/06/24 10:15 08:13 13:50 ABG pH 7.36 7.37 7.42 ABG pCO2 41 38 30 L ABG pO2 87 75 L 90 ABG HCO3 23 22 19 L ABG O2 Saturation 98 96 98 ABG Base Excess -2 -3 -5 L VBG pH VBG pCO2 VBG pO2 VBG Base Excess 01/06/24 01/07/24 01/07/24 21:44 00:30 04:35 ABG pH 7.12 L* D 7.22 L D 7.27 L ABG pCO2 69 H D 52 H D 45 ABG pO2 261 H D 161 H D 209 H D ABG HCO3 22 21 21 ABG O2 Saturation 100 H 99 H 100 H ABG Base Excess -7 L -6 L -6 L VBG pH VBG pCO2 VBG pO2 VBG Base Excess 01/08/24 01/09/24 01/09/24 04:50 04:14 15:49 ABG pH 7.24 L 7.26 L 7.27 L ABG pCO2 47 50 H 51 H ABG pO2 97 D 97 90 ABG HCO3 20 22 23 ABG O2 Saturation 98 98 97 ABG Base Excess -7 L -5 L -4 L VBG pH VBG pCO2 VBG pO2 VBG Base Excess 01/10/24 01/11/24 01/12/24 04:52 04:35 05:24 ABG pH 7.33 L 7.34 L 7.31 L ABG pCO2 43 43 49 H ABG pO2 101 99 106 ABG HCO3 23 23 25 ABG O2 Saturation 98 98 98 ABG Base Excess -3 -3 -2 VBG pH VBG pCO2 VBG pO2 VBG Base Excess Assessment & Plan A&P Narrative abd perforation at surgery about a month ago now delayed wound closure done 12/31/23 dm II. a1c not too bad ckd, with dany changed Friday to renally dosed levaquin and flagyl on 11/18. a change to po and home is reasonable if and when ready, duration of rx is anyone's guess as we have bombed past the usual rx for peritonitis with perforation. if nausea improves. home ok at discretion of surgery. f/u with surgery, no need for outpt ID f/u after release Time Spent With Patient Time: Total time spent is greater than 50% in coordination of care (as documented) at patient's floor/unit and/or counseling patient:
[2024-01-28] MEDS: MORPHINE SULF INJ 10 MG/ML VIAL IVP (15:31)
--- NOTE | 2024-01-28 16:05 | PD.SURPROG ---
Documentation for date of: 01/28/24 Subjective Subjective Brief History: As above Narrative: Patient is starting to eat some but still not able to eat enough. He says that he feels pressure at the epigastric region when he swallows. He is passing large amounts of urine. Exam Vital Signs Temp Pulse Resp BP Pulse Ox O2 Del Method O2 Flow Rate 97.4 F 105 H 22 H 123/83 100 Room Air 2 01/28/24 11:57 01/28/24 12:00 01/28/24 11:57 01/28/24 11:57 01/28/24 11:57 01/28/24 11:57 01/27/24 13:40 FiO2 30 01/20/24 16:00 His vital signs are normal and his heart rate is coming down even though it is still over 100 Routine Abdominal Exam Comments: Abdominal examination shows no significant change. Ileostomy is draining liquid stools Results Results: Laboratory Laboratory Narrative: Patient's laboratory workup showed WBC around 10,900. His BUN/creatinine are still elevated. Assessment & Plan Assessment Additional comments: Impression: Patient has cleared the intra-abdominal abscess significantly and that may be the reason WBC is normal Oral intake is poor which may be due to fungal infection of the esophagus due to antibiotic therapy for the past 6 weeks Plan Plan: We shall ask Dr. Dominguez to endoscope him to find out if there is any cause for his problem with eating. I strongly suspect some fungal infection of the esophagus. The drainage tube in the abdomen was irrigated and there is less of purulent material. There is only cloudy fluid. On we shall wait for his kidney functions to improve. As far as the nutrition patient is back on TPN. Procedures Procedures Exploratory laparotomy and drainage of the subcutaneous infection and wound VAC application
--- NOTE | 2024-01-28 17:08 | ESPR_ITS ---
<Statement entered by Cr Carey MD - 01/28/24 17:21> Senior Resident Attestation: I supervised/discussed management plan with paid intern physician Dr. Goncalves, and was involved in the care of this patient. I personally saw and examined the patient and discussed the assessment and plan with the entire medicine team, including my attending. I agree with the assessment and plan as documented. Patient's care was discussed with attending physician, Dr. Abrams. Cr Carey MD PGY-2. Documentation for date of: 01/28/24 Subjective Subjective Interval history: Patient was seen at bedside this morning. No overnight events. Patient was on TPN today and he was in much better spirits as well and having a few bites of his breakfast. Dr. Rubio will last GI for possible endoscopy to see if there is any pathology impeding the patient from eating. Exam Vital Signs Temp Pulse Resp BP Pulse Ox O2 Del Method O2 Flow Rate 98.9 F 107 H 23 H 136/88 H 100 Room Air 2 01/28/24 16:00 01/28/24 16:00 01/28/24 16:00 01/28/24 16:00 01/28/24 16:00 01/28/24 16:00 01/27/24 13:40 FiO2 30 01/20/24 16:00 Narrative Exam General: A/O x3, ill appearing gentleman and weak Eyes: PERRL, EOMI. Anicteric, vision grossly intact. Ears: No ear pain, no ear discharge, Hearing grossly intact. Nose: No nasal discharge. Mouth/Throat: Dry mucous membranes, no redness, no lesions. Neck: Neck supple, non-tender, no cervical lymphadenopathy. Lungs: Clear KYA to auscultation and percussion, No accessory muscle use. Cardio: Normal S1/S2, regular rhythm, no murmurs, no JVD Abdomen: Soft, Wound VAC in place with clean margins and healthy granulation tissue, tenderness in epigastric region, no palpable masses, peristalsis present, no guarding or rebound. Pleural drainage in place with with less drainage in bag today. Extremities: Symmetrical, no significant deformities, no peripheral edema , non-tender, peripheral pulses presents. Skin: no lesions, warm to touch. Neuro: No focal neurological deficits. motor and sensory intact Psych: Cooperative, appropriate mood and effect. Objective Labs 01/29/24 05:25 01/29/24 05:25 Labs: Laboratory Results - last 24 hr 01/28/24 05:26 WBC 10.9 H RBC 2.93 L Hgb 8.1 L Hct 23.8 L MCV 81 MCH 27.6 MCHC 34.0 RDW Std Deviation 40.2 Plt Count 480 H D Neut % (Auto) 77 Lymph % (Auto) 13 [place] % (Auto) 8 Eos % (Auto) 0 Baso % (Auto) 0 Neut # (Auto) 8.4 H Lymph # (Auto) 1.5 [place] # (Auto) 0.9 H Eos # (Auto) 0.0 Baso # (Auto) 0.0 Immature Gran # (Auto) 0.08 H Absolute Nucleated RBC 0.00 Immature Gran % 1 H Nucleated RBC % 0 Sodium 129 L Potassium 3.7 D Chloride 100 Carbon Dioxide 16.9 L Anion Gap 12 BUN 84 H Creatinine 4.6 H* Estim Creat Clear Calc 20.6 L eGFR 15 L BUN/Creatinine Ratio 18 Glucose 156 H Calculated Osmolality 287 Calcium 6.7 L* Corrected Calcium 7.7 L Phosphorus 6.5 H Magnesium 1.8 Albumin 2.7 L ABG Interpretation ABG results: 12/21/23 12/24/23 12/25/23 15:50 19:45 02:34 ABG pH 7.40 7.23 L D ABG pCO2 40 56 H D ABG pO2 134 H 229 H D ABG HCO3 25 24 ABG O2 Saturation 99 H 100 H ABG Base Excess 0 -5 L VBG pH 7.48 VBG pCO2 35 L VBG pO2 56 VBG Base Excess 2 12/25/23 12/25/23 12/26/23 04:54 10:48 06:56 ABG pH 7.25 L 7.33 L 7.34 L ABG pCO2 52 H 45 43 ABG pO2 93 D 99 95 ABG HCO3 23 23 23 ABG O2 Saturation 97 98 98 ABG Base Excess -5 L -3 -2 VBG pH VBG pCO2 VBG pO2 VBG Base Excess 12/26/23 01/05/24 01/06/24 10:15 08:13 13:50 ABG pH 7.36 7.37 7.42 ABG pCO2 41 38 30 L ABG pO2 87 75 L 90 ABG HCO3 23 22 19 L ABG O2 Saturation 98 96 98 ABG Base Excess -2 -3 -5 L VBG pH VBG pCO2 VBG pO2 VBG Base Excess 01/06/24 01/07/24 01/07/24 21:44 00:30 04:35 ABG pH 7.12 L* D 7.22 L D 7.27 L ABG pCO2 69 H D 52 H D 45 ABG pO2 261 H D 161 H D 209 H D ABG HCO3 22 21 21 ABG O2 Saturation 100 H 99 H 100 H ABG Base Excess -7 L -6 L -6 L VBG pH VBG pCO2 VBG pO2 VBG Base Excess 01/08/24 01/09/24 01/09/24 04:50 04:14 15:49 ABG pH 7.24 L 7.26 L 7.27 L ABG pCO2 47 50 H 51 H ABG pO2 97 D 97 90 ABG HCO3 20 22 23 ABG O2 Saturation 98 98 97 ABG Base Excess -7 L -5 L -4 L VBG pH VBG pCO2 VBG pO2 VBG Base Excess 01/10/24 01/11/24 01/12/24 04:52 04:35 05:24 ABG pH 7.33 L 7.34 L 7.31 L ABG pCO2 43 43 49 H ABG pO2 101 99 106 ABG HCO3 23 23 25 ABG O2 Saturation 98 98 98 ABG Base Excess -3 -3 -2 VBG pH VBG pCO2 VBG pO2 VBG Base Excess Quality Measures Quality Measures VTE prophylaxis (heparin subcutaneously) Assessment & Plan Assessment Current Active Medications: Generic Name Dose Route Start Last Admin Trade Name Ciaranq PRN Reason Stop Dose Admin Acetaminophen 650 mg 01/24/24 23:23 01/26/24 21:09 Acetaminophen 325 Mg Tablet PO 02/21/24 20:48 650 mg Q6HR PRN Administration Pain Scale 1-3 or Fever >100.3 Amlodipine Besylate 10 mg 01/13/24 12:30 01/25/24 09:00 Amlodipine Besylate 5 Mg Tablet PO 02/12/24 12:29 10 mg QDAY TAL Administration Citric Acid/Sodium Citrate 30 ml 01/26/24 09:00 01/28/24 09:14 Citric Acid/Sodium Citr 15 Ml Udc (Bicitra) PO 02/25/24 08:59 30 ml BID TAL Administration Dextrose 25 ml 01/04/24 14:37 Dextrose 50%-Water Inj 50 Ml Syringe IV 02/03/24 14:36 Q15MIN PRN BG 50-70 responsive npo pt Dextrose 50 ml 01/04/24 14:37 Dextrose 50%-Water Inj 50 Ml Syringe IV 02/03/24 14:36 Q15MIN PRN BG <50 OR BG <70 & pt unresponsive Glucagon 1 mg 01/07/24 11:34 Glucagon Inj 1 Mg Vial IM Q15MIN PRN BG <70, and no IV access Levofloxacin/Dextrose 250 mg in 50 mls @ 50 mls/hr 01/26/24 11:30 01/28/24 09:12 Levaquin Ivpb IV 02/02/24 11:29 50 mls/hr QDAY TAL Administration Metronidazole 500 mg in 100 mls @ 200 mls/hr 01/26/24 11:30 01/28/24 13:30 Flagyl 500 Mg Iv IV 02/02/24 11:29 200 mls/hr Q8HR TAL Administration Fat Emulsion-[place] Oil/Soybean Oil 500 mls @ 32 mls/hr 01/28/24 18:00 Clinopid 20% Iv IV 02/27/24 17:59 We@1800 TAL Amino Acids 1,000 mls @ 100 mls/hr 01/28/24 10:01 01/28/24 12:03 Clinimix 5/20 IV 01/28/24 17:59 100 mls/hr QDAY@1800 TAL Administration Sodium Acetate 40 meq/ Calcium 1,054 mls @ 100 mls/hr 01/28/24 18:00 Gluconate 1 gm/ Multivitamins IV 01/29/24 04:32 /Minerals 10 ml/ Potassium QDAY@1800 ONE Acetate 20 meq/ Magnesium Sulfate 2 gm/ Amino Acids Amino Acids 1,000 mls @ 100 mls/hr 01/29/24 04:33 Clinimix 5/20 IV 01/29/24 14:32 .Q10H TAL Insulin Glargine 10 unit 01/04/24 14:45 01/28/24 09:12 Insulin Glargine (Lantus) 5 Unit/0.05 Ml (Per 5 Units) SC 02/03/24 14:44 10 unit QDAY TAL Administration Insulin Human Lispro 0 unit 01/28/24 00:00 01/28/24 11:48 Insulin Lispro (Admelog) 1 Unit/0.01 Ml Unit SC 02/27/24 00:00 1 unit Q6HR TAL Administration Protocol Labetalol HCl 10 mg 01/05/24 19:16 01/13/24 13:24 Labetalol Inj 5 Mg/Ml Vial 20 Ml IVP 02/04/24 19:29 10 mg Q6H PRN Administration SBP >170, DBP>110 Metoclopramide HCl 5 mg 01/27/24 18:00 01/28/24 12:03 Metoclopramide Inj 5 Mg/Ml Vial 2 Ml IVP 02/26/24 17:59 5 mg Q6HR TAL Administration Protocol Metoprolol Succinate 50 mg 01/26/24 09:00 01/28/24 09:11 Metoprolol Succinate Xl 25 Mg Tabcr PO 02/25/24 08:59 50 mg QDAY TAL Administration Mirtazapine 15 mg 01/23/24 21:00 01/27/24 20:46 Mirtazapine 15 Mg Tablet PO 02/22/24 20:59 15 mg HS TAL Administration Morphine Sulfate 1 mg 01/28/24 08:47 01/28/24 15:31 Morphine Sulf Inj 10 Mg/Ml Vial IVP 02/02/24 08:46 1 mg Q4HR PRN Administration PAIN SCALE 4-10(Mod-Sev Ondansetron HCl 4 mg 01/23/24 19:23 01/27/24 09:17 Ondansetron Inj 2 Mg/Ml Inj 2 Ml IV 02/22/24 19:22 4 mg Q6HR PRN Administration NAUSEA OR VOMITING Protocol Pantoprazole Sodium 40 mg 01/01/24 09:00 01/28/24 09:11 Pantoprazole Inj 40 Mg Vial IVP 01/31/24 08:59 40 mg QDAY TAL Administration Protocol Plan 43-year-old male with no significant past medical history who was admitted to the hospital by general surgery on 12/21/2023 for acute perforated appendicitis with multiple postop complications. #Sepsis likely secondary to acute perforated appendicitis #Acute perforated appendicitis #Small bowel perforation s/p ileostomy #Peritonitis #Subcapsular abscess s/p CT-guided drain placement #Subphrenic abscess, R ?Initially patient met SIRS 2 out of 4 with leukocytosis and tachycardia ?Patient underwent multiple surgical procedures including laparoscopic appendectomy on day of admission (12/21/2023), 2 ex laps (12/25/2023 and 01/06/2024), and additional secondary closure of abdomen incision (01/01/2024). ?Multiple blood cultures, urine cultures, sputum cultures, and abdominal wound cultures have come back negative ?Abdomen/pelvis CT on 01/12/2024 showed localized fluid collection on the right lower abdomen consistent with an abscess ?Patient had percutaneous drainage catheter taken out by IR as per general surgeon ?Patient has not been having good oral intake therefore TPN will be continued as per general surgeon -DC'd vancomycin (day 9) and Zosyn (day 8 of second treatment) -WBC 10.9 (uptrended) and still tachycardic -CT abdomen/pelvis (01/18/24) showed Right subphrenic abscess which is very small in thickness, 13 mm and abscess below the liver measures 8.4 x 11.5 x 3.8 cm -IR placed pleural drainage again on 01/20/2024 -DC'd meropenem [01/18/2024-01/26/2024] Plan: -Continue TPN as per Dr. Rubio ?Recommend to encourage oral intake and advance diet as tolerated. -Recommend to follow ID recommendations on Antibiotic regimen, Flagyl and levaquin [01/26/24-] -Recommend flushing pleural drainage. ?Recommend wound care. ?Will continue to monitor for any spiking any fever or elevated WBC. #ANITHA #Likely ATN #NAGMA ?Creatinine worsened from 1.3 to 4.6 today -Likely ATN given multiple CT w contrast Plan: -Nephrology ordered nuclear medicine renal scan, still penidng -Recommend to continue IV fluids as per nephrology -Recommend to continue Bicitra as per nephrology ?Avoid nephrotoxic agents. ?Renally dose medications. -Nephrology consulted, appreciate recommendations ?Will continue to monitor. #Sinus Tachycardia #Hypertension. - Possibly related pain from recent surgeries, less likely infectious - EKGs in december 2023 reveal sinus tachycardia Plan: -Discontinued amlodipine. -Continue metoprolol succinate to 50 mg daily. #Irritant contact dermatitis. -Patient developed an inner thigh rash most likely due to friction Plan: -Benadryl topical x1 #Normocytic normochromic anemia. ?Hgb 8.1 ?Most likely a component of some blood loss given multiple surgical procedures and hemodilution Plan: ?Recommend to transfuse if hemoglobin less than 7 ?Will continue to monitor #Hypokalemia, resolved #Hypomagnesemia #Hyponatremia #hypocalcemia #Hyperphosphatemia -Potassium 3.7, sodium 129, Mg 1.8, phos 6.5, Calcium 6.7 Plan: -Recommend to replete as necessary -Will continue to monitor #Acute hypoxic respiratory failure, resolved. #Pleural effusion, resolved. ?Patient was intubated in the ICU and was successfully extubated on 01/12/2024 ?Chest x-ray on 01/12/2024 showed no pneumonia and no right pleural fluid ?Patient had chest tube taken out by general surgeon -Will assess possibility to take chest tube out ?Checks x-ray 01/15/24 showed no pleural fluid Plan: ?Will continue to monitor Thank you for allowing us to be part of the patient's care. Disposition: Patient seen in telemetry, monitoring ADIS's, pain management, and oral intake. Diet: regular and protein supplement. GI prophylaxis: protonix. DVT prophylaxis: heparin sc. Code: Full code. Nutritional: TPN Case disclosed with Attending Dr. Abrams and My senior Dr. Carey PGY2 Cortez Harp PGY1 Attending Provider Attestation/Addendum 43-year-old male with no previous medical history admitted for abdominal pain by surgical team and noted to have perforated appendicitis status post surgical intervention on 12/21/2023. Patient noted to have prolonged hospital course with multiple intra-abdominal abscesses and multiple surgical intervention first being laparoscopic appendectomy on 12/21/2023 followed by 2 expiratory laparotomy on 12/25/2023 and 01/06/[address]-guided intra-abdominal drainage requiring TPN. As of now, patient continues to have wound VAC in place and surgical team on board. In addition, patient also on meropenem and continues to have IR guided catheter in place. Furthermore, patient also noted to have acute kidney injury previously with an elevation of creatinine 2.9 however down trended to 1.3. Will continue following the patient with surgical team and recommend continuing meropenem and close hemodynamic monitoring. Overnight, patient creatinine up trended to 2.4 unknown etiology at this point however patient is not on any nephrotoxic agents. Patient did not have any episodes of hypotension to suggest ATN. Creatinine kinase is normal. Patient has a wound VAC in place and low suspicion for abdominal compartment syndrome. Nephrology was consulted and patient continues to have worsening creatinine function however does make urine. Continue to monitor closely and will continue following. I reviewed above note and agree with findings and plans. I have also personally examined the patient with medicine team and went over assessment and plan with medical team including paid intern and resident physician.
[2024-01-28] MEDS: CALCIUM ACETATE 667 MG TABLET PO (17:44)
[2024-01-28] MEDS: CALCIUM GLUC/NS 1000MG IVPB 1,000 MG/50 ML BAG 50 MG IV (17:44)
[2024-01-28] MEDS: FAT EMUL/OLIVE/SOY/PHOS 20% IV 500 ML 32 ML IV (17:45)
[2024-01-28] MEDS: [UNRECOGNIZED DRUG - OTHER] IV (17:45)
[2024-01-28] MEDS: MULTIVITAMIN IV (17:45)
[2024-01-28] MEDS: SODIUM ACET ADDITIVE IV (17:45)
[2024-01-28] MEDS: CALCIUM GLUCONATE IV (17:45)
[2024-01-28] MEDS: MIRTAZAPINE 15 MG TABLET PO (21:09)
[2024-01-29] VITALS (18 sets, daily range): BP systolic 111–143; BP diastolic 75–100; PULSE 102–128; RESP 15–30; TEMP 36.1–37.2; O2SAT 94–100
[2024-01-29] MEDS: AMINO ACID IV (04:36)
[2024-01-29] MEDS: [UNRECOGNIZED DRUG - OTHER] IV (04:36)
[2024-01-29] MEDS: metroNIDAZOLE/NS 500 MG IVPB 500 MG/100 ML BAG 200 MG IV ×3 (05:17→21:53)
[2024-01-29] MEDS: METOCLOPRAMIDE INJ 5 MG/ML VIAL 2 ML IVP ×3 (05:17→18:12)
[2024-01-29] MEDS: INSULIN LISPRO (AdmeLOG) 1 UNIT/0.01 ML UNIT SC ×3 (05:25→18:13)
[2024-01-29 06:01] LABS: Basophils % (Auto) 0 % (0-2.5); Eosinophils # (Auto) 0.1 Thou/mm3 (0.0-0.5); Eosinophils % (Auto) 0 % (0-10); Hematocrit 24.7 % (41.0-53.0); Hemoglobin 8.9 g/dL (13.5-16.0); Immature Granulocytes % (Auto) 2 % (0-0); Immature Granulocytes Auto 0.24 Thou/mm3 (0.00-0.00); Lymphocytes # (Auto) 2.1 Thou/mm3 (1.0-4.8); Lymphocytes % (Auto) 12 % (10-50); Mean Corpuscular Hemoglobin 29.1 pg (25.0-35.0); Mean Corpuscular Volume 81 fL (80-100); Monocytes # (Auto) 0.8 Thou/mm3 (0.0-0.8); Monocytes % (Auto) 5 % (0-12); Neutrophils # (Auto) 13.3 Thou/mm3 (1.8-7.7); Neutrophils % (Auto) 81 % (37-80); Nucleated Red Blood Cell % 0 /100 WBC (0); Platelet Count 499 Thou/mm3 (140-440); RDW Standard Deviation 39.4 fL (35.1-43.9); Red Blood Count 3.06 Miln/mm3 (4.50-5.90); White Blood Count 16.5 Thou/mm3 (3.8-10.6)
[2024-01-29] MEDS: CALCIUM ACETATE 667 MG TABLET PO (08:25)
[2024-01-29] MEDS: METOPROLOL SUCCINATE XL 25 MG TABCR 50 MG PO (08:25)
[2024-01-29] MEDS: PANTOPRAZOLE INJ 40 MG VIAL IVP (08:25)
[2024-01-29] MEDS: LEVOFLOXACIN/D5W 250MG IVPB 250 MG/50 ML BAG 50 MG IV (08:26)
[2024-01-29] MEDS: CITRIC ACID/SODIUM CITR 15 ML UDC (BICITRA) 30 ML PO ×2 (08:26→21:51)
[2024-01-29] MEDS: INSULIN GLARGINE (Lantus) 5 UNIT/0.05 ML (PER 5 UNITS) 10 UNIT SC (08:27)
[2024-01-29 09:00] LABS: Alanine Aminotransferase < 7 U/L (10-49); Albumin, Serum 2.7 gm/dL (3.5-5.0); Albumin/Globulin Ratio 0.9 (1.2-2.2); Alkaline Phosphatase 86 U/L (46-116); Anion Gap 11 (7-16); Aspartate Amino Transferase 19 U/L (0-34); BUN/Creatinine Ratio 24 Ratio (12-20); Bilirubin,Total 0.2 mg/dL (0.3-1.2); Blood Urea Nitrogen 85 mg/dL (9-23); Calcium (Corrected) 7.7 mg/dL (8.5-10.1); Carbon Dioxide 17.9 mMol/L (20.0-31.0); Chloride 98 mMol/L (98-107); Creatinine (Component) 3.6 mg/dL (0.6-1.3); Estimated Creatinine Clearance 26.4 mL/min (>60); Globulin 2.9 gm/dL (2.3-3.5); Glucose 172 mg/dL (74-106); Magnesium 1.7 mg/dL (1.6-2.6); Osmolality,Calculated 285 (275-295); Phosphorous 4.3 mg/dL (2.4-5.1); Potassium 3.1 mMol/L (3.4-5.1); Sodium 127 mMol/L (136-145); Total Protein 5.6 gm/dL (5.7-8.2); eGFR 21 See Note
[2024-01-29 09:02] LABS: Calcium 6.7 mg/dL (8.3-10.6)
[2024-01-29] MEDS: CALCIUM GLUC/NS 1000MG IVPB 1,000 MG/50 ML BAG 50 MG IV (09:46)
[2024-01-29] MEDS: POTASSIUM CHL 10 mEq IVPB 10 MEQ/100 ML BAG 100 MEQ IV ×4 (10:10→13:10)
--- NOTE | 2024-01-29 10:32 | PC.WOUND ---
Spoke with Dr. Rbuio, plan to change wound vac dressing tomorrow with .
--- NOTE | 2024-01-29 13:55 | PD.RESPRO ---
Documentation for date of: 01/29/24 Subjective Subjective Interval history: Mr. Morales is a 43-year-old gentleman with no past medical history presented to [facility] on 12/21/2023 with perforated appendicitis with free purulent material in abdomen, underwent laparoscopic appendectomy 12/21/2023. repeat CT A/P showed pneumoperitoneum,so he had exploratory laparotomy on 12/23 and was found to have small bowel perforation, washout was performed & subsequent diverting ileostomy and wound VAC. 12/28: CT-guided percutaneous drainage catheter placed for subphrenic abscess. 12/31 underwent secondary closure of abdominal incision. 01/06/24 patient was taken to the OR. Findings:Purulent material was seen which was whitish and not foul-smelling, sutures removed, irrigated the wound extensively with saline solution and left #19 round Shel[place]Weber on the right gutter, then the wound was closed with wound VAC leaving the fascia completely open. Patient tolerated the procedure well and left operating room in stable condition. Patient was in ICU for septic shock. Intubated and subsequently extubated. Transferred to medical floor. Has been receiving significant amount of antibiotics. Currently with ileostomy, VANESSA drain, open wound with wound VAC. Nephrology consultation requested for elevated BUN and creatinine. 01/25/2024 WBC 17.6, hemoglobin 7.4, platelets 392. Sodium 126, potassium 4.2, bicarbonate 18.7, BUN 40, creatinine 2.6, calcium 8.3, phosphorus 4.5, albumin 3.2 urinalysis shows 2+ protein 2+ blood with 72 RBCs and budding yeast. Abdominal CT on 01/21 showed subphrenic abscess. His current medications included amlodipine, metoprolol, Remeron, morphine as needed 01/25: Patient seen on the floors, resting in bed. Patient looks uncomfortable, ill-appearing. BUN 56, creatinine 3.5, eGFR 21. Patient complains of severe nausea and vomiting, unable to tolerate p.o. intake including liquids. Patient has Zofran on board as needed. 01/26: Patient seen and examined on the floors, resting in bed. Patient looks uncomfortable and ill-appearing. Patient complains of severe nausea and vomiting despite treatment with Zofran and Reglan. BUN 68, creatinine 4.6, eGFR 15. Plan to start patient on TPN, central line to be placed. Patient to go for nuclear medicine renal scan to assess for function, potential need for dialysis. Suspect ATN due to dehydration in setting of increased output and decreased p.o. intake. 1.4 L total output: 0.3 L stool output, 1.1 L urine output. 01/27: Patient seen and examined on floors, resting in bed. Patient comfortable, appears more awake than previous exams. Patient still notes severe nausea and vomiting, currently receiving TPN. Nuclear medicine renal scan pending. 1.4 L output: Drainage of milliliters stool, 900 mL urine. Hemoglobin 8.1. Sodium 129, potassium 3.7, bicarb 16.9, BUN 84, creatinine 4.6, EGFR 58. 01/28: Patient seen and examined on floors, resting in bed. Patient peers comfortable, alert, no specific complaints. Tolerating TPN well, has mild swelling of bilateral lower extremities, will decrease rate to 30 mL/h. Nuclear medicine renal scan showed adequate renal blood flow, no renal function bilaterally. Sodium 127, potassium 3.1 (40 mEq repleted), bicarb 17.9, BUN 85, creatinine 3.6, eGFR 21. Approximately 1 L urinary output. No plans for dialysis at this time. Exam Vital Signs Temp Pulse Resp BP Pulse Ox O2 Del Method O2 Flow Rate 97.8 F 112 H 17 121/84 97 Room Air 2 01/29/24 12:00 01/29/24 12:00 01/29/24 12:00 01/29/24 12:00 01/29/24 12:00 01/29/24 12:00 01/27/24 13:40 FiO2 30 01/20/24 16:00 Narrative Exam GENERAL APPEARANCE: Sick looking gentleman currently seen in telemetry CARDIOVASCULAR: Heart regular, no murmurs, tachycardia LUNGS/CHEST: Chest clear to auscultation. No rales, rhonchi, wheezing ABDOMEN: S/p diversion ileostomy, wound VAC, VANESSA drain. Diffuse tenderness. EXTREMITIES: No clubbing or cyanosis. Trace edema bilateral lower extremities. SKIN: Skin exam normal without any rashes MUSCULOSKELETAL: In bed NEUROLOGICAL : No neurological deficits, alert and awake Objective Labs 01/29/24 05:25 01/29/24 05:25 Labs: Laboratory Results - last 24 hr 01/29/24 05:25 WBC 16.5 H D RBC 3.06 L Hgb 8.9 L Hct 24.7 L MCV 81 MCH 29.1 MCHC 36.0 RDW Std Deviation 39.4 Plt Count 499 H Neut % (Auto) 81 H Lymph % (Auto) 12 [place] % (Auto) 5 Eos % (Auto) 0 Baso % (Auto) 0 Neut # (Auto) 13.3 H Lymph # (Auto) 2.1 [place] # (Auto) 0.8 Eos # (Auto) 0.1 Baso # (Auto) 0.0 Immature Gran # (Auto) 0.24 H Absolute Nucleated RBC 0.00 Immature Gran % 2 H Nucleated RBC % 0 Sodium 127 L Potassium 3.1 L D Chloride 98 Carbon Dioxide 17.9 L Anion Gap 11 BUN 85 H Creatinine 3.6 H D Estim Creat Clear Calc 26.4 L eGFR 21 L BUN/Creatinine Ratio 24 H Glucose 172 H Calculated Osmolality 285 Calcium 6.7 L* Corrected Calcium 7.7 L Phosphorus 4.3 Magnesium 1.7 Total Bilirubin 0.2 L AST 19 ALT < 7 L Alkaline Phosphatase 86 D Total Protein 5.6 L Albumin 2.7 L Globulin 2.9 Albumin/Globulin Ratio 0.9 L ABG Interpretation ABG results: 12/21/23 12/24/23 12/25/23 15:50 19:45 02:34 ABG pH 7.40 7.23 L D ABG pCO2 40 56 H D ABG pO2 134 H 229 H D ABG HCO3 25 24 ABG O2 Saturation 99 H 100 H ABG Base Excess 0 -5 L VBG pH 7.48 VBG pCO2 35 L VBG pO2 56 VBG Base Excess 2 12/25/23 12/25/23 12/26/23 04:54 10:48 06:56 ABG pH 7.25 L 7.33 L 7.34 L ABG pCO2 52 H 45 43 ABG pO2 93 D 99 95 ABG HCO3 23 23 23 ABG O2 Saturation 97 98 98 ABG Base Excess -5 L -3 -2 VBG pH VBG pCO2 VBG pO2 VBG Base Excess 12/26/23 01/05/24 01/06/24 10:15 08:13 13:50 ABG pH 7.36 7.37 7.42 ABG pCO2 41 38 30 L ABG pO2 87 75 L 90 ABG HCO3 23 22 19 L ABG O2 Saturation 98 96 98 ABG Base Excess -2 -3 -5 L VBG pH VBG pCO2 VBG pO2 VBG Base Excess 01/06/24 01/07/24 01/07/24 21:44 00:30 04:35 ABG pH 7.12 L* D 7.22 L D 7.27 L ABG pCO2 69 H D 52 H D 45 ABG pO2 261 H D 161 H D 209 H D ABG HCO3 22 21 21 ABG O2 Saturation 100 H 99 H 100 H ABG Base Excess -7 L -6 L -6 L VBG pH VBG pCO2 VBG pO2 VBG Base Excess 01/08/24 01/09/24 01/09/24 04:50 04:14 15:49 ABG pH 7.24 L 7.26 L 7.27 L ABG pCO2 47 50 H 51 H ABG pO2 97 D 97 90 ABG HCO3 20 22 23 ABG O2 Saturation 98 98 97 ABG Base Excess -7 L -5 L -4 L VBG pH VBG pCO2 VBG pO2 VBG Base Excess 01/10/24 01/11/24 01/12/24 04:52 04:35 05:24 ABG pH 7.33 L 7.34 L 7.31 L ABG pCO2 43 43 49 H ABG pO2 101 99 106 ABG HCO3 23 23 25 ABG O2 Saturation 98 98 98 ABG Base Excess -3 -3 -2 VBG pH VBG pCO2 VBG pO2 VBG Base Excess Quality Measures Quality Measures VTE prophylaxis (heparin subcutaneously) Assessment & Plan Assessment Current Active Medications: Generic Name Dose Route Start Last Admin Trade Name Freq PRN Reason Stop Dose Admin Acetaminophen 650 mg 01/24/24 23:23 01/26/24 21:09 Acetaminophen 325 Mg Tablet PO 02/21/24 20:48 650 mg Q6HR PRN Administration Pain Scale 1-3 or Fever >100.3 Amlodipine Besylate 10 mg 01/13/24 12:30 01/25/24 09:00 Amlodipine Besylate 5 Mg Tablet PO 02/12/24 12:29 10 mg QDAY TAL Administration Calcium Acetate 667 mg 01/28/24 17:30 01/29/24 11:37 Calcium Acetate 667 Mg Tablet PO 02/27/24 17:29 Not Given TIDWM TAL Citric Acid/Sodium Citrate 30 ml 01/26/24 09:00 01/29/24 08:26 Citric Acid/Sodium Citr 15 Ml Udc (Bicitra) PO 02/25/24 08:59 30 ml BID TAL Administration Dextrose 25 ml 01/04/24 14:37 Dextrose 50%-Water Inj 50 Ml Syringe IV 02/03/24 14:36 Q15MIN PRN BG 50-70 responsive npo pt Dextrose 50 ml 01/04/24 14:37 Dextrose 50%-Water Inj 50 Ml Syringe IV 02/03/24 14:36 Q15MIN PRN BG <50 OR BG <70 & pt unresponsive Glucagon 1 mg 01/07/24 11:34 Glucagon Inj 1 Mg Vial IM Q15MIN PRN BG <70, and no IV access Levofloxacin/Dextrose 250 mg in 50 mls @ 50 mls/hr 01/26/24 11:30 01/29/24 08:26 Levaquin Ivpb IV 02/02/24 11:29 50 mls/hr QDAY TAL Administration Metronidazole 500 mg in 100 mls @ 200 mls/hr 01/26/24 11:30 01/29/24 13:11 Flagyl 500 Mg Iv IV 02/02/24 11:29 200 mls/hr Q8HR TAL Administration Fat Emulsion-[place] Oil/Soybean Oil 500 mls @ 32 mls/hr 01/28/24 18:00 01/28/24 17:45 Clinopid 20% Iv IV 02/27/24 17:59 32 mls/hr We@1800 TAL Administration Amino Acids 1,000 mls @ 70 mls/hr 01/29/24 08:19 01/29/24 10:13 Clinimix 5/20 IV 01/29/24 18:19 Not Given .[id number] [facility] Sodium Acetate 60 meq/ Calcium 1,074 mls @ 70 mls/hr 01/29/24 18:20 Gluconate 1 gm/ Multivitamins IV 01/30/24 09:40 /Minerals 10 ml/ Potassium X1 ONE Chloride 40 meq/ Magnesium Sulfate 2 gm/ Amino Acids Amino Acids 1,000 mls @ 70 mls/hr 01/30/24 09:41 Clinimix 5/20 IV 01/30/24 23:58 .[id number] [facility] Insulin Glargine 10 unit 01/04/24 14:45 01/29/24 08:27 Insulin Glargine (Lantus) 5 Unit/0.05 Ml (Per 5 Units) SC 02/03/24 14:44 10 unit QDAY TAL Administration Insulin Human Lispro 0 unit 01/28/24 00:00 01/29/24 11:43 Insulin Lispro (Admelog) 1 Unit/0.01 Ml Unit SC 02/27/24 00:00 1 unit Q6HR TAL Administration Protocol Labetalol HCl 10 mg 01/05/24 19:16 01/13/24 13:24 Labetalol Inj 5 Mg/Ml Vial 20 Ml IVP 02/04/24 19:29 10 mg Q6H PRN Administration SBP >170, DBP>110 Metoclopramide HCl 5 mg 01/27/24 18:00 01/29/24 11:43 Metoclopramide Inj 5 Mg/Ml Vial 2 Ml IVP 02/26/24 17:59 5 mg Q6HR TAL Administration Protocol Metoprolol Succinate 50 mg 01/26/24 09:00 01/29/24 08:25 Metoprolol Succinate Xl 25 Mg Tabcr PO 02/25/24 08:59 50 mg QDAY TAL Administration Mirtazapine 15 mg 01/23/24 21:00 01/28/24 21:09 Mirtazapine 15 Mg Tablet PO 02/22/24 20:59 15 mg HS TAL Administration Morphine Sulfate 1 mg 01/28/24 08:47 01/28/24 15:31 Morphine Sulf Inj 10 Mg/Ml Vial IVP 02/02/24 08:46 1 mg Q4HR PRN Administration PAIN SCALE 4-10(Mod-Sev Ondansetron HCl 4 mg 01/23/24 19:23 01/27/24 09:17 Ondansetron Inj 2 Mg/Ml Inj 2 Ml IV 02/22/24 19:22 4 mg Q6HR PRN Administration NAUSEA OR VOMITING Protocol Pantoprazole Sodium 40 mg 01/01/24 09:00 01/29/24 08:25 Pantoprazole Inj 40 Mg Vial IVP 01/31/24 08:59 40 mg QDAY TAL Administration Protocol Plan 43-year-old male with no significant past medical history who was admitted to the hospital by general surgery on 12/21/2023 for acute perforated appendicitis with multiple postop complications. #Acute kidney injury. #Suspected acute renal failure. Patient has no history of CKD. Patient has acutely worsening renal function: On 01/22 BUN 36, creatinine 1.3, eGFR greater than 60. 01/25 BUN 56, creatinine 3.5, eGFR 21. Patient has increased GI losses, wound VAC end ileostomy. Patient has very poor p.o. intake due to severe nausea and vomiting, unable to tolerate oral fluids. Patient receiving IVF. Nuclear medicine renal scan to assess renal function, potential need for dialysis. Patient to be started on TPN due to severe nausea/vomiting, poor p.o. intake. Nuclear medicine renal scan showed adequate renal blood flow, no renal function bilaterally. Consistent with ATN. Patient continues to produce good urine. Kidney function somewhat improved: BUN 85, creatinine 2.6, eGFR 21. Plan: -TPN -Monitor/electrolytes as needed -Avoid nephrotoxic agents. -renally dose medications. -Will continue to monitor. -No plans for dialysis at this time #Sepsis likely secondary to acute perforated appendicitis #Acute perforated appendicitis #Small bowel perforation s/p ileostomy #Peritonitis #Subcapsular abscess s/p CT-guided drain placement #Subphrenic abscess, R #Sinus Tachycardia. #Hypertension. #Irritant contact dermatitis. #Normocytic normochromic anemia. #Acute hypoxic respiratory failure, resolved. #Pleural effusion, resolved. Management as per primary team. Diet: TPN GI prophylaxis: protonix. DVT prophylaxis: heparin Code: Full code. Thank you for allow me to precipitate in the care of this patient. Plan of care discussed with attending Dr. Covarrubias. Kris Fuentes MD PGY-1 Attending Provider Attestation/Addendum Patient seen and examined with resident physician Dr. Fuentes. Note reviewed, agree with findings and recommendations. He has good urine output. Feeling much better. Decrease TPN to 70 mL/h. Creatinine tad better. No need for dialysis.
--- NOTE | 2024-01-29 14:09 | PD.RESPRO ---
Documentation for date of: 01/29/24 Subjective Subjective Interval history: Patient was at bedside this morning. No overnight events. Patient will have EGD done today by GI specialist. He also seem a little bit more swollen today and he was encouraged to have p.o. intake. Still complaining of having some nausea and abdominal pain. No other complaints at this time. Exam Vital Signs Temp Pulse Resp BP Pulse Ox O2 Del Method O2 Flow Rate 97.8 F 112 H 17 121/84 97 Room Air 2 01/29/24 12:00 01/29/24 12:00 01/29/24 12:00 01/29/24 12:00 01/29/24 12:00 01/29/24 12:00 01/27/24 13:40 FiO2 30 01/20/24 16:00 Narrative Exam General: A/O x3, ill appearing and weak Eyes: PERRL, EOMI. Anicteric, vision grossly intact. Ears: No ear pain, no ear discharge, Hearing grossly intact. Nose: No nasal discharge. Mouth/Throat: Dry mucous membranes, no redness, no lesions. Neck: Neck supple, non-tender, no cervical lymphadenopathy. Lungs: Clear KYA to auscultation and percussion, No accessory muscle use. Cardio: Normal S1/S2, regular rhythm, no murmurs, no JVD Abdomen: Soft, Wound VAC in place with clean margins and healthy granulation tissue, tenderness in epigastric region, no palpable masses, peristalsis present, no guarding or rebound. Pleural drainage in place with with little drainage in bag today. Extremities: Symmetrical, no significant deformities, no peripheral edema , non-tender, peripheral pulses presents. Skin: no lesions, warm to touch. Neuro: No focal neurological deficits. motor and sensory intact Psych: Cooperative, appropriate mood and effect. Objective Labs 01/29/24 05:25 01/29/24 05:25 Labs: Laboratory Results - last 24 hr 01/29/24 05:25 WBC 16.5 H D RBC 3.06 L Hgb 8.9 L Hct 24.7 L MCV 81 MCH 29.1 MCHC 36.0 RDW Std Deviation 39.4 Plt Count 499 H Neut % (Auto) 81 H Lymph % (Auto) 12 Lyman % (Auto) 5 Eos % (Auto) 0 Baso % (Auto) 0 Neut # (Auto) 13.3 H Lymph # (Auto) 2.1 Lyman # (Auto) 0.8 Eos # (Auto) 0.1 Baso # (Auto) 0.0 Immature Gran # (Auto) 0.24 H Absolute Nucleated RBC 0.00 Immature Gran % 2 H Nucleated RBC % 0 Sodium 127 L Potassium 3.1 L D Chloride 98 Carbon Dioxide 17.9 L Anion Gap 11 BUN 85 H Creatinine 3.6 H D Estim Creat Clear Calc 26.4 L eGFR 21 L BUN/Creatinine Ratio 24 H Glucose 172 H Calculated Osmolality 285 Calcium 6.7 L* Corrected Calcium 7.7 L Phosphorus 4.3 Magnesium 1.7 Total Bilirubin 0.2 L AST 19 ALT < 7 L Alkaline Phosphatase 86 D Total Protein 5.6 L Albumin 2.7 L Globulin 2.9 Albumin/Globulin Ratio 0.9 L ABG Interpretation ABG results: 12/21/23 12/24/23 12/25/23 15:50 19:45 02:34 ABG pH 7.40 7.23 L D ABG pCO2 40 56 H D ABG pO2 134 H 229 H D ABG HCO3 25 24 ABG O2 Saturation 99 H 100 H ABG Base Excess 0 -5 L VBG pH 7.48 VBG pCO2 35 L VBG pO2 56 VBG Base Excess 2 12/25/23 12/25/23 12/26/23 04:54 10:48 06:56 ABG pH 7.25 L 7.33 L 7.34 L ABG pCO2 52 H 45 43 ABG pO2 93 D 99 95 ABG HCO3 23 23 23 ABG O2 Saturation 97 98 98 ABG Base Excess -5 L -3 -2 VBG pH VBG pCO2 VBG pO2 VBG Base Excess 12/26/23 01/05/24 01/06/24 10:15 08:13 13:50 ABG pH 7.36 7.37 7.42 ABG pCO2 41 38 30 L ABG pO2 87 75 L 90 ABG HCO3 23 22 19 L ABG O2 Saturation 98 96 98 ABG Base Excess -2 -3 -5 L VBG pH VBG pCO2 VBG pO2 VBG Base Excess 01/06/24 01/07/24 01/07/24 21:44 00:30 04:35 ABG pH 7.12 L* D 7.22 L D 7.27 L ABG pCO2 69 H D 52 H D 45 ABG pO2 261 H D 161 H D 209 H D ABG HCO3 22 21 21 ABG O2 Saturation 100 H 99 H 100 H ABG Base Excess -7 L -6 L -6 L VBG pH VBG pCO2 VBG pO2 VBG Base Excess 01/08/24 01/09/24 01/09/24 04:50 04:14 15:49 ABG pH 7.24 L 7.26 L 7.27 L ABG pCO2 47 50 H 51 H ABG pO2 97 D 97 90 ABG HCO3 20 22 23 ABG O2 Saturation 98 98 97 ABG Base Excess -7 L -5 L -4 L VBG pH VBG pCO2 VBG pO2 VBG Base Excess 01/10/24 01/11/24 01/12/24 04:52 04:35 05:24 ABG pH 7.33 L 7.34 L 7.31 L ABG pCO2 43 43 49 H ABG pO2 101 99 106 ABG HCO3 23 23 25 ABG O2 Saturation 98 98 98 ABG Base Excess -3 -3 -2 VBG pH VBG pCO2 VBG pO2 VBG Base Excess Quality Measures Quality Measures VTE prophylaxis (heparin subcutaneously) Assessment & Plan Assessment Current Active Medications: Generic Name Dose Route Start Last Admin Trade Name Freq PRN Reason Stop Dose Admin Acetaminophen 650 mg 01/24/24 23:23 01/26/24 21:09 Acetaminophen 325 Mg Tablet PO 02/21/24 20:48 650 mg Q6HR PRN Administration Pain Scale 1-3 or Fever >100.3 Amlodipine Besylate 10 mg 01/13/24 12:30 01/25/24 09:00 Amlodipine Besylate 5 Mg Tablet PO 02/12/24 12:29 10 mg QDAY TAL Administration Calcium Acetate 667 mg 01/28/24 17:30 01/29/24 11:37 Calcium Acetate 667 Mg Tablet PO 02/27/24 17:29 Not Given TIDWM TAL Citric Acid/Sodium Citrate 30 ml 01/26/24 09:00 01/29/24 08:26 Citric Acid/Sodium Citr 15 Ml Udc (Bicitra) PO 02/25/24 08:59 30 ml BID TAL Administration Dextrose 25 ml 01/04/24 14:37 Dextrose 50%-Water Inj 50 Ml Syringe IV 02/03/24 14:36 Q15MIN PRN BG 50-70 responsive npo pt Dextrose 50 ml 01/04/24 14:37 Dextrose 50%-Water Inj 50 Ml Syringe IV 02/03/24 14:36 Q15MIN PRN BG <50 OR BG <70 & pt unresponsive Glucagon 1 mg 01/07/24 11:34 Glucagon Inj 1 Mg Vial IM Q15MIN PRN BG <70, and no IV access Levofloxacin/Dextrose 250 mg in 50 mls @ 50 mls/hr 01/26/24 11:30 01/29/24 08:26 Levaquin Ivpb IV 02/02/24 11:29 50 mls/hr QDAY TAL Administration Metronidazole 500 mg in 100 mls @ 200 mls/hr 01/26/24 11:30 01/29/24 13:11 Flagyl 500 Mg Iv IV 02/02/24 11:29 200 mls/hr Q8HR TAL Administration Fat Emulsion-[place] Oil/Soybean Oil 500 mls @ 32 mls/hr 01/28/24 18:00 01/28/24 17:45 Clinopid 20% Iv IV 02/27/24 17:59 32 mls/hr We@1800 TAL Administration Amino Acids 1,000 mls @ 70 mls/hr 01/29/24 08:19 01/29/24 10:13 Clinimix 5/20 IV 01/29/24 18:19 Not Given .[id number] [facility] Sodium Acetate 60 meq/ Calcium 1,074 mls @ 70 mls/hr 01/29/24 18:20 Gluconate 1 gm/ Multivitamins IV 01/30/24 09:40 /Minerals 10 ml/ Potassium X1 ONE Chloride 40 meq/ Magnesium Sulfate 2 gm/ Amino Acids Amino Acids 1,000 mls @ 70 mls/hr 01/30/24 09:41 Clinimix 5/20 IV 01/30/24 23:58 .[id number] [facility] Insulin Glargine 10 unit 01/04/24 14:45 01/29/24 08:27 Insulin Glargine (Lantus) 5 Unit/0.05 Ml (Per 5 Units) SC 02/03/24 14:44 10 unit QDAY TAL Administration Insulin Human Lispro 0 unit 01/28/24 00:00 01/29/24 11:43 Insulin Lispro (Admelog) 1 Unit/0.01 Ml Unit SC 02/27/24 00:00 1 unit Q6HR TAL Administration Protocol Labetalol HCl 10 mg 01/05/24 19:16 01/13/24 13:24 Labetalol Inj 5 Mg/Ml Vial 20 Ml IVP 02/04/24 19:29 10 mg Q6H PRN Administration SBP >170, DBP>110 Metoclopramide HCl 5 mg 01/27/24 18:00 01/29/24 11:43 Metoclopramide Inj 5 Mg/Ml Vial 2 Ml IVP 02/26/24 17:59 5 mg Q6HR TAL Administration Protocol Metoprolol Succinate 50 mg 01/26/24 09:00 01/29/24 08:25 Metoprolol Succinate Xl 25 Mg Tabcr PO 02/25/24 08:59 50 mg QDAY TAL Administration Mirtazapine 15 mg 01/23/24 21:00 01/28/24 21:09 Mirtazapine 15 Mg Tablet PO 02/22/24 20:59 15 mg HS TAL Administration Morphine Sulfate 1 mg 01/28/24 08:47 01/28/24 15:31 Morphine Sulf Inj 10 Mg/Ml Vial IVP 02/02/24 08:46 1 mg Q4HR PRN Administration PAIN SCALE 4-10(Mod-Sev Ondansetron HCl 4 mg 01/23/24 19:23 01/27/24 09:17 Ondansetron Inj 2 Mg/Ml Inj 2 Ml IV 02/22/24 19:22 4 mg Q6HR PRN Administration NAUSEA OR VOMITING Protocol Pantoprazole Sodium 40 mg 01/01/24 09:00 01/29/24 08:25 Pantoprazole Inj 40 Mg Vial IVP 01/31/24 08:59 40 mg QDAY TAL Administration Protocol Plan 43-year-old male with no significant past medical history who was admitted to the hospital by general surgery on 12/21/2023 for acute perforated appendicitis with multiple postop complications. #Sepsis likely secondary to acute perforated appendicitis #Acute perforated appendicitis #Small bowel perforation s/p ileostomy #Peritonitis #Subcapsular abscess s/p CT-guided drain placement #Subphrenic abscess, R ?Initially patient met SIRS 2 out of 4 with leukocytosis and tachycardia ?Patient underwent multiple surgical procedures including laparoscopic appendectomy on day of admission (12/21/2023), 2 ex laps (12/25/2023 and 01/06/2024), and additional secondary closure of abdomen incision (01/01/2024). ?Multiple blood cultures, urine cultures, sputum cultures, and abdominal wound cultures have come back negative ?Abdomen/pelvis CT on 01/12/2024 showed localized fluid collection on the right lower abdomen consistent with an abscess ?Patient had percutaneous drainage catheter taken out by IR as per general surgeon ?Patient has not been having good oral intake therefore TPN will be continued as per general surgeon -DC'd vancomycin (day 9) and Zosyn (day 8 of second treatment) -WBC 16.5 (uptrended) and still tachycardic -CT abdomen/pelvis (01/18/24) showed Right subphrenic abscess which is very small in thickness, 13 mm and abscess below the liver measures 8.4 x 11.5 x 3.8 cm -IR placed pleural drainage again on 01/20/2024 -DC'd meropenem [01/18/2024-01/26/2024] Plan: -Continue TPN as per Dr. Rubio, decreased to 60cc/hr by Nephro. -EGD tonight ?Recommend to encourage oral intake and advance diet as tolerated. -Recommend to follow ID recommendations on Antibiotic regimen, Flagyl and levaquin [01/26/24-] -Recommend flushing pleural drainage. ?Recommend wound care. ?Will continue to monitor for any spiking any fever or elevated WBC. #ANITHA #Likely ATN #NAGMA ?Creatinine worsened from 1.3 to 3.6 today -Likely ATN given multiple CT w contrast -Nephrology ordered nuclear medicine renal scan showed no renal function., as per nephrology this is likely ATN and patient will not need HD for now. Plan: -Recommend to continue IV fluids as per nephrology -Recommend to continue Bicitra as per nephrology ?Avoid nephrotoxic agents. ?Renally dose medications. -Nephrology consulted, appreciate recommendations ?Will continue to monitor. #Sinus Tachycardia #Hypertension. - Possibly related pain from recent surgeries, less likely infectious - EKGs in december 2023 reveal sinus tachycardia Plan: -Discontinued amlodipine. -Continue metoprolol succinate to 50 mg daily. #Irritant contact dermatitis. -Patient developed an inner thigh rash most likely due to friction Plan: -Benadryl topical x1 #Normocytic normochromic anemia. ?Hgb 8.9 ?Most likely a component of some blood loss given multiple surgical procedures and hemodilution Plan: ?Recommend to transfuse if hemoglobin less than 7 ?Will continue to monitor #Hypokalemia, resolved #Hypomagnesemia #Hyponatremia #hypocalcemia #Hyperphosphatemia -Potassium 3.1, sodium 127, Mg 1.7, phos 4.3, Calcium 6.7 Plan: -Recommend to replete as necessary -Will continue to monitor #Acute hypoxic respiratory failure, resolved. #Pleural effusion, resolved. ?Patient was intubated in the ICU and was successfully extubated on 01/12/2024 ?Chest x-ray on 01/12/2024 showed no pneumonia and no right pleural fluid ?Patient had chest tube taken out by general surgeon -Will assess possibility to take chest tube out ?Checks x-ray 01/15/24 showed no pleural fluid Plan: ?Will continue to monitor Thank you for allowing us to be part of the patient's care. Disposition: Patient seen in telemetry, monitoring ADIS's, pain management, and oral intake. Diet: regular and protein supplement. GI prophylaxis: protonix. DVT prophylaxis: heparin sc. Code: Full code. Nutritional: TPN Case disclosed with Attending Dr. Abrams and My senior Dr. Carey PGY2 Cortez Harp PGY1 Attending Provider Attestation/Addendum 43-year-old male with no previous medical history admitted for abdominal pain by surgical team and noted to have perforated appendicitis status post surgical intervention on 12/21/2023. Patient noted to have prolonged hospital course with multiple intra-abdominal abscesses and multiple surgical intervention first being laparoscopic appendectomy on 12/21/2023 followed by 2 expiratory laparotomy on 12/25/2023 and 01/06/[address]-guided intra-abdominal drainage requiring TPN. As of now, patient continues to have wound VAC in place and surgical team on board. In addition, patient also on meropenem and continues to have IR guided catheter in place. Furthermore, patient also noted to have acute kidney injury previously with an elevation of creatinine 2.9 however down trended to 1.3. Will continue following the patient with surgical team and recommend continuing meropenem and close hemodynamic monitoring. Overnight, patient creatinine up trended to 2.4 unknown etiology at this point however patient is not on any nephrotoxic agents. Patient did not have any episodes of hypotension to suggest ATN. Creatinine kinase is normal. Patient has a wound VAC in place and low suspicion for abdominal compartment syndrome. Nephrology was consulted and patient continues to have worsening creatinine function however does make urine. Continue to monitor closely and will continue following. I reviewed above note and agree with findings and plans. I have also personally examined the patient with medicine team and went over assessment and plan with medical team including manager of international and resident physician.
--- NOTE | 2024-01-29 15:41 | PC.SS ---
Rounding: Pending EGD
--- NOTE | 2024-01-29 17:29 | ESCONSULT_ITS ---
HPI Data of Consult Requesting Physician: Michelle Abrams MD Primary Care Provider: Nayan Leung MD Consult Narrative Reason for consult: Dysphagia History of present illness: 49 years old male evaluated at the request of the continuous improvement specialist and the internal medicine team for inability to eat and dysphagia He was admitted on 12/21/2023 with acute ruptured appendicitis with purulent material in the right paracolic gutter requiring appendectomy and drainage Patient currently on TPN and unable to eat He feels something is heavy in the epigastric area after eating and has some difficulty swallowing cc:: cc: Michelle Abrams MD Review of Systems Review of Systems Systems Reviewed: All systems reviewed, normal except as documented Past Medical History Surgical History OTHER SURGICAL HX: As in the history of present illness Meds Home Medications and Allergies Home Medications ?Medication ?Instructions ?Recorded ?Confirmed ?Type No Known Home Medications 12/22/23 12/22/23 History Allergies Allergy/AdvReac Type Severity Reaction Status Date / Time No Known Allergies Allergy Verified 12/21/23 23:25 Exam Vital Signs Temp Pulse Resp BP Pulse Ox O2 Del Method O2 Flow Rate 97.8 F 102 H 17 121/84 97 Room Air 2 01/29/24 12:00 01/29/24 16:00 01/29/24 12:00 01/29/24 12:00 01/29/24 12:00 01/29/24 12:00 01/27/24 13:40 FiO2 30 01/20/24 16:00 Constitutional Comments: Alert oriented Routine Respiratory Exam Comments: Normal to auscultation Routine Abdominal Exam Comments: Soft nontender Results Labs 01/29/24 05:25 01/29/24 05:25 Labs: Short CBC 01/29/24 Range/Units 05:25 WBC 16.5 H D (3.8-10.6) Thou/mm3 Hgb 8.9 L (13.5-16.0) g/dL Hct 24.7 L (41.0-53.0) % Plt Count 499 H (140-440) Thou/mm3 BMP 01/29/24 05:25 Sodium 127 L Potassium 3.1 L D Chloride 98 Carbon Dioxide 17.9 L BUN 85 H Creatinine 3.6 H D Glucose 172 H Calcium 6.7 L* Liver Function 01/29/24 Range/Units 05:25 Total Bilirubin 0.2 L (0.3-1.2) mg/dL AST 19 (0-34) U/L ALT < 7 L (10-49) U/L Alkaline Phosphatase 86 D (46-116) U/L Albumin 2.7 L (3.5-5.0) gm/dL ABG Interpretation ABG results: 12/21/23 12/24/23 12/25/23 15:50 19:45 02:34 ABG pH 7.40 7.23 L D ABG pCO2 40 56 H D ABG pO2 134 H 229 H D ABG HCO3 25 24 ABG O2 Saturation 99 H 100 H ABG Base Excess 0 -5 L VBG pH 7.48 VBG pCO2 35 L VBG pO2 56 VBG Base Excess 2 12/25/23 12/25/23 12/26/23 04:54 10:48 06:56 ABG pH 7.25 L 7.33 L 7.34 L ABG pCO2 52 H 45 43 ABG pO2 93 D 99 95 ABG HCO3 23 23 23 ABG O2 Saturation 97 98 98 ABG Base Excess -5 L -3 -2 VBG pH VBG pCO2 VBG pO2 VBG Base Excess 12/26/23 01/05/24 01/06/24 10:15 08:13 13:50 ABG pH 7.36 7.37 7.42 ABG pCO2 41 38 30 L ABG pO2 87 75 L 90 ABG HCO3 23 22 19 L ABG O2 Saturation 98 96 98 ABG Base Excess -2 -3 -5 L VBG pH VBG pCO2 VBG pO2 VBG Base Excess 01/06/24 01/07/24 01/07/24 21:44 00:30 04:35 ABG pH 7.12 L* D 7.22 L D 7.27 L ABG pCO2 69 H D 52 H D 45 ABG pO2 261 H D 161 H D 209 H D ABG HCO3 22 21 21 ABG O2 Saturation 100 H 99 H 100 H ABG Base Excess -7 L -6 L -6 L VBG pH VBG pCO2 VBG pO2 VBG Base Excess 01/08/24 01/09/24 01/09/24 04:50 04:14 15:49 ABG pH 7.24 L 7.26 L 7.27 L ABG pCO2 47 50 H 51 H ABG pO2 97 D 97 90 ABG HCO3 20 22 23 ABG O2 Saturation 98 98 97 ABG Base Excess -7 L -5 L -4 L VBG pH VBG pCO2 VBG pO2 VBG Base Excess 01/10/24 01/11/24 01/12/24 04:52 04:35 05:24 ABG pH 7.33 L 7.34 L 7.31 L ABG pCO2 43 43 49 H ABG pO2 101 99 106 ABG HCO3 23 23 25 ABG O2 Saturation 98 98 98 ABG Base Excess -3 -3 -2 VBG pH VBG pCO2 VBG pO2 VBG Base Excess Assessment and Plan Additional Assessment & Plan Additional Plan: # Dysphagia with inability to eat patient currently on TPN # Status post appendectomy with ruptured acute appendicitis Plan Fiberoptic esophagogastroduodenoscopy with possible biopsy possible therapeutic intervention under intravenous moderate sedation Informed consent obtained after discussion of risk benefits and alternatives and the procedure will be done today Thank you once again for the opportunity to participate in the care of this patient
[2024-01-29] MEDS: [UNRECOGNIZED DRUG - OTHER] IV (18:14)
[2024-01-29] MEDS: SODIUM ACET ADDITIVE IV (18:14)
[2024-01-29] MEDS: CALCIUM GLUCONATE IV (18:14)
[2024-01-29] MEDS: MULTIVITAMIN IV (18:14)
--- NOTE | 2024-01-29 20:59 | SUR.PHASEI ---
Pt. arrived to recovery via [facility] with exception of HR 102 to 110s, pt. is resting, eyes closed, responds to verbal commands, lung sounds clear, equal expansion partha., pt. has wound vac and ileostomy in place. Report received from Chantelle TURCIOS.
--- NOTE | 2024-01-29 21:30 | SUR.PHASEI ---
Called and gave report on pt. s/p egd to Sarah TURCIOS on Telemetry unit.
--- NOTE | 2024-01-29 21:40 | SUR.PHASEI ---
Pt. transferred to room 274 via BRE baez, no c/o pain or nausea at this time, pt. tolerating sips of water, wound vac and ileostomy bag intact, IV flushed and patent. Sarah TURCIOS assumed care of pt.
[2024-01-29] MEDS: MIRTAZAPINE 15 MG TABLET PO (21:51)
[2024-01-29] MEDS: METOCLOPRAMIDE INJ 5 MG/ML VIAL 2 ML 10 MG IVP (21:51)
[2024-01-30] VITALS (7 sets, daily range): BP systolic 111–131; BP diastolic 75–89; PULSE 68–124; RESP 17–21; TEMP 36.3–37.4; O2SAT 95–97; BMI 32.8
[2024-01-30] MEDS: INSULIN LISPRO (AdmeLOG) 1 UNIT/0.01 ML UNIT SC ×3 (00:46→12:36)
[2024-01-30] MEDS: metroNIDAZOLE/NS 500 MG IVPB 500 MG/100 ML BAG 200 MG IV ×3 (05:06→21:40)
[2024-01-30] MEDS: METOCLOPRAMIDE INJ 5 MG/ML VIAL 2 ML 10 MG IVP ×3 (05:08→17:25)
[2024-01-30 05:57] LABS: Basophils % (Auto) 0 % (0-2.5); Eosinophils # (Auto) 0.1 Thou/mm3 (0.0-0.5); Eosinophils % (Auto) 1 % (0-10); Hematocrit 21.1 % (41.0-53.0); Hemoglobin 7.2 g/dL (13.5-16.0); Immature Granulocytes % (Auto) 3 % (0-0); Immature Granulocytes Auto 0.39 Thou/mm3 (0.00-0.00); Lymphocytes # (Auto) 1.7 Thou/mm3 (1.0-4.8); Lymphocytes % (Auto) 12 % (10-50); Mean Corpuscular HGB Conc 34.1 g/dl (31.0-37.0); Mean Corpuscular Hemoglobin 27.8 pg (25.0-35.0); Mean Corpuscular Volume 82 fL (80-100); Monocytes # (Auto) 0.9 Thou/mm3 (0.0-0.8); Monocytes % (Auto) 6 % (0-12); Neutrophils # (Auto) 11.9 Thou/mm3 (1.8-7.7); Neutrophils % (Auto) 79 % (37-80); Nucleated Red Blood Cell % 0 /100 WBC (0); Platelet Count 429 Thou/mm3 (140-440); RDW Standard Deviation 40.2 fL (35.1-43.9); Red Blood Count 2.59 Miln/mm3 (4.50-5.90)
[2024-01-30 06:28] LABS: Alanine Aminotransferase 9 U/L (10-49); Albumin, Serum 2.6 gm/dL (3.5-5.0); Alkaline Phosphatase 78 U/L (46-116); Anion Gap 9 (7-16); Aspartate Amino Transferase 23 U/L (0-34); BUN/Creatinine Ratio 29 Ratio (12-20); Bilirubin,Total 0.2 mg/dL (0.3-1.2); Blood Urea Nitrogen 83 mg/dL (9-23); Calcium 7.1 mg/dL (8.3-10.6); Calcium (Corrected) 8.2 mg/dL (8.5-10.1); Carbon Dioxide 20.5 mMol/L (20.0-31.0); Chloride 103 mMol/L (98-107); Creatinine (Component) 2.9 mg/dL (0.6-1.3); Estimated Creatinine Clearance 32.7 mL/min (>60); Globulin 2.6 gm/dL (2.3-3.5); Glucose 125 mg/dL (74-106); Magnesium 1.8 mg/dL (1.6-2.6); Osmolality,Calculated 290 (275-295); Phosphorous 4.4 mg/dL (2.4-5.1); Potassium 3.2 mMol/L (3.4-5.1); Sodium 132 mMol/L (136-145); Total Protein 5.2 gm/dL (5.7-8.2); eGFR 27 See Note
[2024-01-30] MEDS: POTASSIUM CHL 10 mEq IVPB 10 MEQ/100 ML BAG 100 MEQ IV ×4 (08:18→11:25)
[2024-01-30] MEDS: ferumoxytoL (NON-ESRD) 510 MG in SODIUM CHLORIDE 0.9% 100 ML 234 MG IV (08:18)
[2024-01-30] MEDS: CALCIUM ACETATE 667 MG TABLET PO ×3 (08:19→17:25)
[2024-01-30] MEDS: INSULIN GLARGINE (Lantus) 5 UNIT/0.05 ML (PER 5 UNITS) 10 UNIT SC (08:51)
[2024-01-30] MEDS: EPOETIN ALFA-EPBX INJ 10,000 UNIT/ML VIAL (ESRD) 10000 UNIT SC (08:51)
[2024-01-30] MEDS: CITRIC ACID/SODIUM CITR 15 ML UDC (BICITRA) 30 ML PO ×2 (08:53→21:39)
[2024-01-30] MEDS: METOPROLOL SUCCINATE XL 25 MG TABCR 50 MG PO (08:54)
[2024-01-30] MEDS: LEVOFLOXACIN/D5W 250MG IVPB 250 MG/50 ML BAG 50 MG IV (08:56)
[2024-01-30] MEDS: PANTOPRAZOLE INJ 40 MG VIAL IVP (08:56)
[2024-01-30] MEDS: [UNRECOGNIZED DRUG - OTHER] IV (10:07)
[2024-01-30] MEDS: AMINO ACID IV (10:07)
--- NOTE | 2024-01-30 12:16 | XR_ITS ---
Examination: AP chest single view TECHNIQUE: AP portable upright chest single view Exam date and time: January 30, 2024 1356 hours INDICATIONS: Port-A-Cath insertion today FINDINGS: Right internal jugular Port-A-Cath line in satisfactory position No pneumothorax IMPRESSION: Right internal jugular Port-A-Cath line in satisfactory position
[2024-01-30] MEDS: MORPHINE SULF INJ 10 MG/ML VIAL IVP ×2 (12:35→21:55)
--- NOTE | 2024-01-30 13:04 | PD.RESPRO ---
Documentation for date of: 01/30/24 Subjective Subjective Interval history: Mr. Morales is a 43-year-old gentleman with no past medical history presented to [facility] on 12/21/2023 with perforated appendicitis with free purulent material in abdomen, underwent laparoscopic appendectomy 12/21/2023. repeat CT A/P showed pneumoperitoneum,so he had exploratory laparotomy on 12/23 and was found to have small bowel perforation, washout was performed & subsequent diverting ileostomy and wound VAC. 12/28: CT-guided percutaneous drainage catheter placed for subphrenic abscess. 12/31 underwent secondary closure of abdominal incision. 01/06/24 patient was taken to the OR. Findings:Purulent material was seen which was whitish and not foul-smelling, sutures removed, irrigated the wound extensively with saline solution and left #19 round [place]We[place] on the right gutter, then the wound was closed with wound VAC leaving the fascia completely open. Patient tolerated the procedure well and left operating room in stable condition. Patient was in ICU for septic shock. Intubated and subsequently extubated. Transferred to medical floor. Has been receiving significant amount of antibiotics. Currently with ileostomy, VANESSA drain, open wound with wound VAC. Nephrology consultation requested for elevated BUN and creatinine. 01/25/2024 WBC 17.6, hemoglobin 7.4, platelets 392. Sodium 126, potassium 4.2, bicarbonate 18.7, BUN 40, creatinine 2.6, calcium 8.3, phosphorus 4.5, albumin 3.2 urinalysis shows 2+ protein 2+ blood with 72 RBCs and budding yeast. Abdominal CT on 01/21 showed subphrenic abscess. His current medications included amlodipine, metoprolol, Remeron, morphine as needed 01/25: Patient seen on the floors, resting in bed. Patient looks uncomfortable, ill-appearing. BUN 56, creatinine 3.5, eGFR 21. Patient complains of severe nausea and vomiting, unable to tolerate p.o. intake including liquids. Patient has Zofran on board as needed. 01/26: Patient seen and examined on the floors, resting in bed. Patient looks uncomfortable and ill-appearing. Patient complains of severe nausea and vomiting despite treatment with Zofran and Reglan. BUN 68, creatinine 4.6, eGFR 15. Plan to start patient on TPN, central line to be placed. Patient to go for nuclear medicine renal scan to assess for function, potential need for dialysis. Suspect ATN due to dehydration in setting of increased output and decreased p.o. intake. 1.4 L total output: 0.3 L stool output, 1.1 L urine output. 01/27: Patient seen and examined on floors, resting in bed. Patient comfortable, appears more awake than previous exams. Patient still notes severe nausea and vomiting, currently receiving TPN. Nuclear medicine renal scan pending. 1.4 L output: Drainage of milliliters stool, 900 mL urine. Hemoglobin 8.1. Sodium 129, potassium 3.7, bicarb 16.9, BUN 84, creatinine 4.6, EGFR 58. 01/28: Patient seen and examined on floors, resting in bed. Patient appears comfortable, alert, no specific complaints. Tolerating TPN well, has mild swelling of bilateral lower extremities, will decrease rate to 30 mL/h. Nuclear medicine renal scan showed adequate renal blood flow, no renal function bilaterally. Sodium 127, potassium 3.1 (40 mEq repleted), bicarb 17.9, BUN 85, creatinine 3.6, eGFR 21. Approximately 1 L urinary output. No plans for dialysis at this time. 01/29: Patient seen and examined on floors, resting in bed. Patient appears comfortable, alert, nonspecific complaints. Patient had EGD overnight, which showed gastroesophagitis and esophageal stenosis, treated with dilation. Patient has been placed on clear liquid diet, has been tolerating well, still receiving TPN. Encouraged oral hydration. Sodium 132, potassium 3.2, bicarb 20.5, BUN 83, creatinine 2.9, eGFR 27. 1.5 L urinary output. Exam Vital Signs Temp Pulse Resp BP Pulse Ox O2 Del Method O2 Flow Rate 98.1 F 107 H 18 131/89 H 97 Room Air 3 01/30/24 12:00 01/30/24 12:00 01/30/24 12:00 01/30/24 12:00 01/30/24 12:00 01/30/24 12:00 01/29/24 21:55 FiO2 30 01/29/24 21:55 Narrative Exam GENERAL APPEARANCE: Well-appearing gentleman currently seen in telemetry CARDIOVASCULAR: Heart regular, no murmurs, tachycardia LUNGS/CHEST: Chest clear to auscultation. No rales, rhonchi, wheezing ABDOMEN: S/p diversion ileostomy, wound VAC, VANESSA drain. Mild diffuse tenderness. EXTREMITIES: No clubbing or cyanosis. Trace edema bilateral lower extremities. SKIN: Skin exam normal without any rashes MUSCULOSKELETAL: In bed NEUROLOGICAL : No neurological deficits, alert and awake Objective Labs 01/30/24 04:48 01/30/24 04:48 Labs: Laboratory Results - last 24 hr 01/30/24 04:48 WBC 15.0 H RBC 2.59 L Hgb 7.2 L Hct 21.1 L* MCV 82 MCH 27.8 MCHC 34.1 RDW Std Deviation 40.2 Plt Count 429 D Neut % (Auto) 79 Lymph % (Auto) 12 [place] % (Auto) 6 Eos % (Auto) 1 Baso % (Auto) 0 Neut # (Auto) 11.9 H Lymph # (Auto) 1.7 [place] # (Auto) 0.9 H Eos # (Auto) 0.1 Baso # (Auto) 0.0 Immature Gran # (Auto) 0.39 H Absolute Nucleated RBC 0.00 Immature Gran % 3 H Nucleated RBC % 0 Sodium 132 L Potassium 3.2 L Chloride 103 Carbon Dioxide 20.5 Anion Gap 9 BUN 83 H Creatinine 2.9 H D Estim Creat Clear Calc 32.7 L eGFR 27 L BUN/Creatinine Ratio 29 H Glucose 125 H Calculated Osmolality 290 Calcium 7.1 L Corrected Calcium 8.2 L Phosphorus 4.4 Magnesium 1.8 Total Bilirubin 0.2 L AST 23 ALT 9 L Alkaline Phosphatase 78 Total Protein 5.2 L Albumin 2.6 L Globulin 2.6 Albumin/Globulin Ratio 1.0 L ABG Interpretation ABG results: 12/21/23 12/24/23 12/25/23 15:50 19:45 02:34 ABG pH 7.40 7.23 L D ABG pCO2 40 56 H D ABG pO2 134 H 229 H D ABG HCO3 25 24 ABG O2 Saturation 99 H 100 H ABG Base Excess 0 -5 L VBG pH 7.48 VBG pCO2 35 L VBG pO2 56 VBG Base Excess 2 12/25/23 12/25/23 12/26/23 04:54 10:48 06:56 ABG pH 7.25 L 7.33 L 7.34 L ABG pCO2 52 H 45 43 ABG pO2 93 D 99 95 ABG HCO3 23 23 23 ABG O2 Saturation 97 98 98 ABG Base Excess -5 L -3 -2 VBG pH VBG pCO2 VBG pO2 VBG Base Excess 12/26/23 01/05/24 01/06/24 10:15 08:13 13:50 ABG pH 7.36 7.37 7.42 ABG pCO2 41 38 30 L ABG pO2 87 75 L 90 ABG HCO3 23 22 19 L ABG O2 Saturation 98 96 98 ABG Base Excess -2 -3 -5 L VBG pH VBG pCO2 VBG pO2 VBG Base Excess 01/06/24 01/07/24 01/07/24 21:44 00:30 04:35 ABG pH 7.12 L* D 7.22 L D 7.27 L ABG pCO2 69 H D 52 H D 45 ABG pO2 261 H D 161 H D 209 H D ABG HCO3 22 21 21 ABG O2 Saturation 100 H 99 H 100 H ABG Base Excess -7 L -6 L -6 L VBG pH VBG pCO2 VBG pO2 VBG Base Excess 01/08/24 01/09/24 01/09/24 04:50 04:14 15:49 ABG pH 7.24 L 7.26 L 7.27 L ABG pCO2 47 50 H 51 H ABG pO2 97 D 97 90 ABG HCO3 20 22 23 ABG O2 Saturation 98 98 97 ABG Base Excess -7 L -5 L -4 L VBG pH VBG pCO2 VBG pO2 VBG Base Excess 01/10/24 01/11/24 01/12/24 04:52 04:35 05:24 ABG pH 7.33 L 7.34 L 7.31 L ABG pCO2 43 43 49 H ABG pO2 101 99 106 ABG HCO3 23 23 25 ABG O2 Saturation 98 98 98 ABG Base Excess -3 -3 -2 VBG pH VBG pCO2 VBG pO2 VBG Base Excess Quality Measures Quality Measures VTE prophylaxis (heparin subcutaneously) Assessment & Plan Assessment Current Active Medications: Generic Name Dose Route Start Last Admin Trade Name Freq PRN Reason Stop Dose Admin Acetaminophen 650 mg 01/24/24 23:23 01/26/24 21:09 Acetaminophen 325 Mg Tablet PO 02/21/24 20:48 650 mg Q6HR PRN Administration Pain Scale 1-3 or Fever >100.3 Amlodipine Besylate 10 mg 01/13/24 12:30 01/25/24 09:00 Amlodipine Besylate 5 Mg Tablet PO 02/12/24 12:29 10 mg QDAY TAL Administration Calcium Acetate 667 mg 01/28/24 17:30 01/30/24 12:36 Calcium Acetate 667 Mg Tablet PO 02/27/24 17:29 667 mg TIDWM TAL Administration Citric Acid/Sodium Citrate 30 ml 01/26/24 09:00 01/30/24 08:53 Citric Acid/Sodium Citr 15 Ml Udc (Bicitra) PO 02/25/24 08:59 30 ml BID TAL Administration Dextrose 25 ml 01/04/24 14:37 Dextrose 50%-Water Inj 50 Ml Syringe IV 02/03/24 14:36 Q15MIN PRN BG 50-70 responsive npo pt Dextrose 50 ml 01/04/24 14:37 Dextrose 50%-Water Inj 50 Ml Syringe IV 02/03/24 14:36 Q15MIN PRN BG <50 OR BG <70 & pt unresponsive Glucagon 1 mg 01/07/24 11:34 Glucagon Inj 1 Mg Vial IM Q15MIN PRN BG <70, and no IV access Levofloxacin/Dextrose 250 mg in 50 mls @ 50 mls/hr 01/26/24 11:30 01/30/24 08:56 Levaquin Ivpb IV 02/02/24 11:29 50 mls/hr QDAY TAL Administration Metronidazole 500 mg in 100 mls @ 200 mls/hr 01/26/24 11:30 01/30/24 07:00 Flagyl 500 Mg Iv IV 02/02/24 11:29 Infused Q8HR TAL Infusion Fat Emulsion-[place] Oil/Soybean Oil 500 mls @ 32 mls/hr 01/28/24 18:00 01/29/24 19:01 Clinopid 20% Iv IV 02/27/24 17:59 Infused We@1800 TAL Infusion Amino Acids 1,000 mls @ 70 mls/hr 01/30/24 09:41 01/30/24 10:07 Clinimix 5/20 IV 01/30/24 23:58 70 mls/hr .[id number] TAL Administration Calcium Gluconate 1 gm/ 1,022 mls @ 66.611 mls/hr 01/30/24 23:59 Magnesium Sulfate 1 gm/ Sodium IV 01/31/24 15:19 Acetate 20 meq/ Amino Acids X1 ONE Insulin Glargine 10 unit 01/04/24 14:45 01/30/24 08:51 Insulin Glargine (Lantus) 5 Unit/0.05 Ml (Per 5 Units) SC 02/03/24 14:44 10 unit QDAY TAL Administration Insulin Human Lispro 0 unit 01/28/24 00:00 01/30/24 12:36 Insulin Lispro (Admelog) 1 Unit/0.01 Ml Unit SC 02/27/24 00:00 1 unit Q6HR TAL Administration Protocol Labetalol HCl 10 mg 01/05/24 19:16 01/13/24 13:24 Labetalol Inj 5 Mg/Ml Vial 20 Ml IVP 02/04/24 19:29 10 mg Q6H PRN Administration SBP >170, DBP>110 Metoclopramide HCl 10 mg 01/29/24 20:54 01/30/24 12:46 Metoclopramide Inj 5 Mg/Ml Vial 2 Ml IVP 02/28/24 20:53 10 mg Q6HR TAL Administration Protocol Metoprolol Succinate 50 mg 01/26/24 09:00 01/30/24 08:54 Metoprolol Succinate Xl 25 Mg Tabcr PO 02/25/24 08:59 50 mg QDAY TAL Administration Mirtazapine 15 mg 01/23/24 21:00 01/29/24 21:51 Mirtazapine 15 Mg Tablet PO 02/22/24 20:59 15 mg HS TAL Administration Morphine Sulfate 1 mg 01/28/24 08:47 01/30/24 12:35 Morphine Sulf Inj 10 Mg/Ml Vial IVP 02/02/24 08:46 1 mg Q4HR PRN Administration PAIN SCALE 4-10(Mod-Sev Pantoprazole Sodium 40 mg 01/01/24 09:00 01/30/24 08:56 Pantoprazole Inj 40 Mg Vial IVP 01/31/24 08:59 40 mg QDAY TAL Administration Protocol Plan 43-year-old male with no significant past medical history who was admitted to the hospital by general surgery on 12/21/2023 for acute perforated appendicitis with multiple postop complications. #Acute kidney injury. #Suspected acute renal failure. Patient has no history of CKD. Patient has acutely worsening renal function: On 01/22 BUN 36, creatinine 1.3, eGFR greater than 60. 01/25 BUN 56, creatinine 3.5, eGFR 21. Patient has increased GI losses, wound VAC end ileostomy. Patient has very poor p.o. intake due to severe nausea and vomiting, unable to tolerate oral fluids. Patient receiving IVF. Nuclear medicine renal scan to assess renal function, potential need for dialysis. Patient to be started on TPN due to severe nausea/vomiting, poor p.o. intake. Nuclear medicine renal scan showed adequate renal blood flow, no renal function bilaterally. Consistent with ATN. Patient continues to produce good urine. Kidney function somewhat improved: BUN 85, creatinine 2.6, eGFR 21. Plan: -TPN -Encourage oral hydration as tolerated. -Monitor/electrolytes as needed -Avoid nephrotoxic agents. -renally dose medications. -Will continue to monitor. -No plans for dialysis at this time #Sepsis likely secondary to acute perforated appendicitis #Acute perforated appendicitis #Small bowel perforation s/p ileostomy #Peritonitis #Subcapsular abscess s/p CT-guided drain placement #Subphrenic abscess, R #Sinus Tachycardia. #Hypertension. #Irritant contact dermatitis. #Normocytic normochromic anemia. #Acute hypoxic respiratory failure, resolved. #Pleural effusion, resolved. Management as per primary team. Diet: TPN, clear liquid GI prophylaxis: protonix. DVT prophylaxis: heparin Code: Full code. Thank you for allow me to precipitate in the care of this patient. Plan of care discussed with attending Dr. Covarrubias. Kris Fuentes MD PGY-1 Attending Provider Attestation/Addendum Patient seen and examined with resident physician Dr. Fuentes. Note reviewed, agree with findings and recommendations. Creatinine slowly trending down. Ambulate
--- NOTE | 2024-01-30 13:23 | ESPR_ITS ---
<Statement entered by Cr Carey MD - 01/30/24 15:23> Senior Resident Attestation: I supervised/discussed management plan with internet sales associate physician Dr. Goncalves, and was involved in the care of this patient. I personally saw and examined the patient and discussed the assessment and plan with the entire medicine team, including my attending. I agree with the assessment and plan as documented. Patient's care was discussed with attending physician, Dr. Padilla. Cr Carey MD PGY-2. Documentation for date of: 01/30/24 Subjective Subjective Interval history: Patient was seen at bedside this morning. No overnight events. On EEG done last night by GI specialist patient was found to have esophageal stenosis which was dilated as well as Gastritis, esophagitis and large amount of secretions in the body of the stomach which could indicate gastric motility disorder. Per GI specialist he recommended to do Reglan every 6 hours. This morning patient was feeling a lot better and was looking a lot better as he ate all of his clear liquid diet. Patient's kidney function is well improved. No other complaints at this time. Exam Vital Signs Temp Pulse Resp BP Pulse Ox O2 Del Method O2 Flow Rate 98.1 F 107 H 18 131/89 H 97 Room Air 3 01/30/24 12:00 01/30/24 12:00 01/30/24 12:00 01/30/24 12:00 01/30/24 12:00 01/30/24 12:00 01/29/24 21:55 FiO2 30 01/29/24 21:55 Narrative Exam General: A/O x3,in better spirits Eyes: PERRL, EOMI. Anicteric, vision grossly intact. Ears: No ear pain, no ear discharge, Hearing grossly intact. Nose: No nasal discharge. Mouth/Throat: Dry mucous membranes, no redness, no lesions. Neck: Neck supple, non-tender, no cervical lymphadenopathy. Lungs: Clear KYA to auscultation and percussion, No accessory muscle use. Cardio: Normal S1/S2, regular rhythm, no murmurs, no JVD Abdomen: Soft, Wound VAC in place with clean margins and healthy granulation tissue, no tenderness today, no palpable masses, peristalsis present, no guarding or rebound. Pleural drainage in place with with small purulent drainage in bag today. Extremities: Symmetrical, no significant deformities, no peripheral edema , non-tender, peripheral pulses presents. Skin: no lesions, warm to touch. Neuro: No focal neurological deficits. motor and sensory intact Psych: Cooperative, appropriate mood and effect. Objective Labs 01/31/24 09:17 01/31/24 04:25 Labs: Laboratory Results - last 24 hr 01/30/24 04:48 WBC 15.0 H RBC 2.59 L Hgb 7.2 L Hct 21.1 L* MCV 82 MCH 27.8 MCHC 34.1 RDW Std Deviation 40.2 Plt Count 429 D Neut % (Auto) 79 Lymph % (Auto) 12 [place] % (Auto) 6 Eos % (Auto) 1 Baso % (Auto) 0 Neut # (Auto) 11.9 H Lymph # (Auto) 1.7 [place] # (Auto) 0.9 H Eos # (Auto) 0.1 Baso # (Auto) 0.0 Immature Gran # (Auto) 0.39 H Absolute Nucleated RBC 0.00 Immature Gran % 3 H Nucleated RBC % 0 Sodium 132 L Potassium 3.2 L Chloride 103 Carbon Dioxide 20.5 Anion Gap 9 BUN 83 H Creatinine 2.9 H D Estim Creat Clear Calc 32.7 L eGFR 27 L BUN/Creatinine Ratio 29 H Glucose 125 H Calculated Osmolality 290 Calcium 7.1 L Corrected Calcium 8.2 L Phosphorus 4.4 Magnesium 1.8 Total Bilirubin 0.2 L AST 23 ALT 9 L Alkaline Phosphatase 78 Total Protein 5.2 L Albumin 2.6 L Globulin 2.6 Albumin/Globulin Ratio 1.0 L ABG Interpretation ABG results: 12/21/23 12/24/23 12/25/23 15:50 19:45 02:34 ABG pH 7.40 7.23 L D ABG pCO2 40 56 H D ABG pO2 134 H 229 H D ABG HCO3 25 24 ABG O2 Saturation 99 H 100 H ABG Base Excess 0 -5 L VBG pH 7.48 VBG pCO2 35 L VBG pO2 56 VBG Base Excess 2 12/25/23 12/25/23 12/26/23 04:54 10:48 06:56 ABG pH 7.25 L 7.33 L 7.34 L ABG pCO2 52 H 45 43 ABG pO2 93 D 99 95 ABG HCO3 23 23 23 ABG O2 Saturation 97 98 98 ABG Base Excess -5 L -3 -2 VBG pH VBG pCO2 VBG pO2 VBG Base Excess 12/26/23 01/05/24 01/06/24 10:15 08:13 13:50 ABG pH 7.36 7.37 7.42 ABG pCO2 41 38 30 L ABG pO2 87 75 L 90 ABG HCO3 23 22 19 L ABG O2 Saturation 98 96 98 ABG Base Excess -2 -3 -5 L VBG pH VBG pCO2 VBG pO2 VBG Base Excess 01/06/24 01/07/24 01/07/24 21:44 00:30 04:35 ABG pH 7.12 L* D 7.22 L D 7.27 L ABG pCO2 69 H D 52 H D 45 ABG pO2 261 H D 161 H D 209 H D ABG HCO3 22 21 21 ABG O2 Saturation 100 H 99 H 100 H ABG Base Excess -7 L -6 L -6 L VBG pH VBG pCO2 VBG pO2 VBG Base Excess 01/08/24 01/09/24 01/09/24 04:50 04:14 15:49 ABG pH 7.24 L 7.26 L 7.27 L ABG pCO2 47 50 H 51 H ABG pO2 97 D 97 90 ABG HCO3 20 22 23 ABG O2 Saturation 98 98 97 ABG Base Excess -7 L -5 L -4 L VBG pH VBG pCO2 VBG pO2 VBG Base Excess 01/10/24 01/11/24 01/12/24 04:52 04:35 05:24 ABG pH 7.33 L 7.34 L 7.31 L ABG pCO2 43 43 49 H ABG pO2 101 99 106 ABG HCO3 23 23 25 ABG O2 Saturation 98 98 98 ABG Base Excess -3 -3 -2 VBG pH VBG pCO2 VBG pO2 VBG Base Excess Quality Measures Quality Measures VTE prophylaxis (heparin subcutaneously) Assessment & Plan Assessment Current Active Medications: Generic Name Dose Route Start Last Admin Trade Name Freq PRN Reason Stop Dose Admin Acetaminophen 650 mg 01/24/24 23:23 01/26/24 21:09 Acetaminophen 325 Mg Tablet PO 02/21/24 20:48 650 mg Q6HR PRN Administration Pain Scale 1-3 or Fever >100.3 Amlodipine Besylate 10 mg 01/13/24 12:30 01/25/24 09:00 Amlodipine Besylate 5 Mg Tablet PO 02/12/24 12:29 10 mg QDAY TAL Administration Calcium Acetate 667 mg 01/28/24 17:30 01/30/24 12:36 Calcium Acetate 667 Mg Tablet PO 02/27/24 17:29 667 mg TIDWM TAL Administration Citric Acid/Sodium Citrate 30 ml 01/26/24 09:00 01/30/24 08:53 Citric Acid/Sodium Citr 15 Ml Udc (Bicitra) PO 02/25/24 08:59 30 ml BID ATL Administration Dextrose 25 ml 01/04/24 14:37 Dextrose 50%-Water Inj 50 Ml Syringe IV 02/03/24 14:36 Q15MIN PRN BG 50-70 responsive npo pt Dextrose 50 ml 01/04/24 14:37 Dextrose 50%-Water Inj 50 Ml Syringe IV 02/03/24 14:36 Q15MIN PRN BG <50 OR BG <70 & pt unresponsive Glucagon 1 mg 01/07/24 11:34 Glucagon Inj 1 Mg Vial IM Q15MIN PRN BG <70, and no IV access Levofloxacin/Dextrose 250 mg in 50 mls @ 50 mls/hr 01/26/24 11:30 01/30/24 08:56 Levaquin Ivpb IV 02/02/24 11:29 50 mls/hr QDAY TAL Administration Metronidazole 500 mg in 100 mls @ 200 mls/hr 01/26/24 11:30 01/30/24 07:00 Flagyl 500 Mg Iv IV 02/02/24 11:29 Infused Q8HR TAL Infusion Fat Emulsion-[place] Oil/Soybean Oil 500 mls @ 32 mls/hr 01/28/24 18:00 01/29/24 19:01 Clinopid 20% Iv IV 02/27/24 17:59 Infused We@1800 TAL Infusion Amino Acids 1,000 mls @ 70 mls/hr 01/30/24 09:41 01/30/24 10:07 Clinimix 5/20 IV 01/30/24 23:58 70 mls/hr .[id number] TAL Administration Calcium Gluconate 1 gm/ 1,032 mls @ 70 mls/hr 01/30/24 23:59 Magnesium Sulfate 1 gm/ Sodium IV 01/31/24 14:43 Acetate 40 meq/ Amino Acids QDAY ONE Insulin Glargine 10 unit 10/27/24 14:45 01/30/24 08:51 Insulin Glargine (Lantus) 5 Unit/0.05 Ml (Per 5 Units) SC 02/03/24 14:44 10 unit QDAY TAL Administration Insulin Human Lispro 0 unit 01/28/24 00:00 01/30/24 12:36 Insulin Lispro (Admelog) 1 Unit/0.01 Ml Unit SC 02/27/24 00:00 1 unit Q6HR TAL Administration Protocol Labetalol HCl 10 mg 01/05/24 19:16 01/13/24 13:24 Labetalol Inj 5 Mg/Ml Vial 20 Ml IVP 02/04/24 19:29 10 mg Q6H PRN Administration SBP >170, DBP>110 Metoclopramide HCl 10 mg 01/29/24 20:54 01/30/24 12:46 Metoclopramide Inj 5 Mg/Ml Vial 2 Ml IVP 02/28/24 20:53 10 mg Q6HR TAL Administration Protocol Metoprolol Succinate 50 mg 01/26/24 09:00 01/30/24 08:54 Metoprolol Succinate Xl 25 Mg Tabcr PO 02/25/24 08:59 50 mg QDAY TAL Administration Mirtazapine 15 mg 01/23/24 21:00 01/29/24 21:51 Mirtazapine 15 Mg Tablet PO 02/22/24 20:59 15 mg HS TAL Administration Morphine Sulfate 1 mg 01/28/24 08:47 01/30/24 12:35 Morphine Sulf Inj 10 Mg/Ml Vial IVP 02/02/24 08:46 1 mg Q4HR PRN Administration PAIN SCALE 4-10(Mod-Sev Pantoprazole Sodium 40 mg 01/01/24 09:00 01/30/24 08:56 Pantoprazole Inj 40 Mg Vial IVP 01/31/24 08:59 40 mg QDAY TAL Administration Protocol Plan 43-year-old male with no significant past medical history who was admitted to the hospital by general surgery on 12/21/2023 for acute perforated appendicitis with multiple postop complications. #Sepsis likely secondary to acute perforated appendicitis #Acute perforated appendicitis #Small bowel perforation s/p ileostomy #Peritonitis #Subcapsular abscess s/p CT-guided drain placement #Subphrenic abscess, R ?Initially patient met SIRS 2 out of 4 with leukocytosis and tachycardia ?Patient underwent multiple surgical procedures including laparoscopic appendectomy on day of admission (12/21/2023), 2 ex laps (12/25/2023 and 01/06/2024), and additional secondary closure of abdomen incision (01/01/2024). ?Multiple blood cultures, urine cultures, sputum cultures, and abdominal wound cultures have come back negative ?Abdomen/pelvis CT on 01/12/2024 showed localized fluid collection on the right lower abdomen consistent with an abscess ?Patient had percutaneous drainage catheter taken out by IR as per general surgeon ?Patient has not been having good oral intake therefore TPN will be continued as per general surgeon -DC'd vancomycin (day 9) and Zosyn (day 8 of second treatment) -WBC 16.5 (uptrended) and still tachycardic -CT abdomen/pelvis (01/18/24) showed Right subphrenic abscess which is very small in thickness, 13 mm and abscess below the liver measures 8.4 x 11.5 x 3.8 cm -IR placed pleural drainage again on 01/20/2024 -DC'd meropenem [01/18/2024-01/26/2024] Plan: -Continue TPN as per Dr. Rubio, decreased to 60cc/hr by Nephro. -EGD tonight ?Recommend to encourage oral intake and advance diet as tolerated. -Recommend to follow ID recommendations on Antibiotic regimen, Flagyl and levaquin [01/26/24-] -Recommend flushing pleural drainage. ?Recommend wound care. ?Will continue to monitor for any spiking any fever or elevated WBC. #ANITHA #Likely ATN #NAGMA ?Creatinine improving to 2.9 today -Likely ATN given multiple CT w contrast -Nephrology ordered nuclear medicine renal scan showed no renal function., as per nephrology this is likely ATN and patient will not need HD for now. Plan: -Recommend to continue IV fluids as per nephrology -Recommend to continue Bicitra as per nephrology ?Avoid nephrotoxic agents. ?Renally dose medications. -Nephrology consulted, appreciate recommendations ?Will continue to monitor. #Sinus Tachycardia #Hypertension. - Possibly related pain from recent surgeries, less likely infectious - EKGs in december 2023 reveal sinus tachycardia -Discontinued amlodipine. Plan: -Continue metoprolol succinate to 50 mg daily. #Irritant contact dermatitis. -Patient developed an inner thigh rash most likely due to friction Plan: -Will continue to monitor #Normocytic normochromic anemia. ?Hgb 7.2 ?Most likely a component of some blood loss given multiple surgical procedures and hemodilution Plan: ?Recommend to transfuse if hemoglobin less than 7 ?Will continue to monitor #Hypokalemia, resolved #Hypomagnesemia #Hyponatremia #hypocalcemia #Hyperphosphatemia -Potassium 3.2, sodium 132, Mg 1.8, phos 4.4, Calcium 7.1 Plan: -Recommend to replete as necessary -Will continue to monitor #Acute hypoxic respiratory failure, resolved. #Pleural effusion, resolved. ?Patient was intubated in the ICU and was successfully extubated on 01/12/2024 ?Chest x-ray on 01/12/2024 showed no pneumonia and no right pleural fluid ?Patient had chest tube taken out by general surgeon -Will assess possibility to take chest tube out ?Checks x-ray 01/15/24 showed no pleural fluid Plan: ?Will continue to monitor Thank you for allowing us to be part of the patient's care. Disposition: Patient seen in telemetry, monitoring ADIS's, pain management, and oral intake. Diet: clear liquid diet GI prophylaxis: protonix. DVT prophylaxis: heparin sc. Code: Full code. Nutritional: TPN Case disclosed with Attending Dr. Padilla and My senior Dr. Carey PGY2 Cortez Harp PGY1 Attending Provider Attestation/Addendum Susannah Escalera, , attest that I was physically present for the augustine portions of the service and evaluated the patient with the resident and I reviewed and discussed the case with the resident and agree with the resident's findings and plans of care as documented above Patient seen and evaluated this AM. He states he is doing well and was able to tolerate CLD this morning following dilatation of esophagus last night. EGD shows evidence of gastritis. Patient seen eval this a.m. Esophagitis, esophageal stenosis, and secretions found in stomach suggestive of gastric motility disorder. Started on Reglan 10 mg IV every 6 hours. Patient states that he has been getting up with physical therapy. He has no active complaints at this time. He denies any chest pain, nausea, vomiting, chest pain, abdominal pain otherwise. 10 mL of purulent fluid is noted from drained. Wound VAC appears to have some serosanguineous drainage. Patient states that he is noted to have some blood streaks in his phlegm when he coughs. He remains afebrile. Will monitor H&H and continue to follow closely.
--- NOTE | 2024-01-30 17:19 | PD.SURPROG ---
Documentation for date of: 01/30/24 Subjective Subjective Brief History: As above Narrative: Patient is feeling better today tolerating clear liquids after he endoscopy last night. Exam Vital Signs Temp Pulse Resp BP Pulse Ox O2 Del Method O2 Flow Rate 98.1 F 107 H 18 131/89 H 97 Room Air 3 01/30/24 12:00 01/30/24 12:00 01/30/24 12:00 01/30/24 12:00 01/30/24 12:00 01/30/24 12:00 01/29/24 21:55 FiO2 30 01/29/24 21:55 His vital signs are normal. He is afebrile Routine Abdominal Exam Comments: Abdominal examination is negative and wound is healing well. The wound VAC was changed today and there is healthy granulation tissue underneath. There is very minimal drainage in the catheter. Results Results: Laboratory Laboratory Narrative: Laboratory workup showed improvement in the creatinine but BUN is going up. His hemoglobin is around 15,000 Assessment & Plan Assessment Additional comments: Impression: Feeling slightly better after EGD. Will continue present management Plan Plan: I irrigated the wound and obtained clear fluids without any cloudiness. The abscess seem to have resolved. I talked with Dr. Caceres who wants to wait till next week to remove the catheter on probably [address] scan for complete resolution of the abscess. Meanwhile kidney functions has improved gradually and his oral intake has to be better. Dr. Dominguez's help is appreciated. Procedures Procedures Exploratory laparotomy and drainage of the subcutaneous infection and wound VAC application
--- NOTE | 2024-01-30 17:42 | PC.NURSE ---
irrigated accordian drain,Mary wound nurse changed wound vac today.
--- NOTE | 2024-01-30 20:12 | ESPR_ITS ---
Documentation for date of: 01/30/24 Subjective Subjective Interval history: Patient evaluated Able to tolerate liquid diet today Discussed endoscopic findings with the operating surgeon Exam Vital Signs Temp Pulse Resp BP Pulse Ox O2 Del Method O2 Flow Rate 99.4 F 103 H 20 126/82 95 Room Air 3 01/30/24 16:00 01/30/24 16:00 01/30/24 16:00 01/30/24 16:00 01/30/24 16:00 01/30/24 16:00 01/29/24 21:55 FiO2 30 01/29/24 21:55 Objective Labs 01/30/24 04:48 01/30/24 04:48 Labs: Laboratory Results - last 24 hr 01/30/24 04:48 WBC 15.0 H RBC 2.59 L Hgb 7.2 L Hct 21.1 L* MCV 82 MCH 27.8 MCHC 34.1 RDW Std Deviation 40.2 Plt Count 429 D Neut % (Auto) 79 Lymph % (Auto) 12 [place] % (Auto) 6 Eos % (Auto) 1 Baso % (Auto) 0 Neut # (Auto) 11.9 H Lymph # (Auto) 1.7 [place] # (Auto) 0.9 H Eos # (Auto) 0.1 Baso # (Auto) 0.0 Immature Gran # (Auto) 0.39 H Absolute Nucleated RBC 0.00 Immature Gran % 3 H Nucleated RBC % 0 Sodium 132 L Potassium 3.2 L Chloride 103 Carbon Dioxide 20.5 Anion Gap 9 BUN 83 H Creatinine 2.9 H D Estim Creat Clear Calc 32.7 L eGFR 27 L BUN/Creatinine Ratio 29 H Glucose 125 H Calculated Osmolality 290 Calcium 7.1 L Corrected Calcium 8.2 L Phosphorus 4.4 Magnesium 1.8 Total Bilirubin 0.2 L AST 23 ALT 9 L Alkaline Phosphatase 78 Total Protein 5.2 L Albumin 2.6 L Globulin 2.6 Albumin/Globulin Ratio 1.0 L Impressions Impression: # Gastric motility disorder # Diffuse gastritis biopsies pending # Diffuse esophagitis biopsies pending # Diffuse duodenitis # Proximal esophageal stricture status post endoscopic dilatation Advance diet as tolerated ABG Interpretation ABG results: 12/21/23 12/24/23 12/25/23 15:50 19:45 02:34 ABG pH 7.40 7.23 L D ABG pCO2 40 56 H D ABG pO2 134 H 229 H D ABG HCO3 25 24 ABG O2 Saturation 99 H 100 H ABG Base Excess 0 -5 L VBG pH 7.48 VBG pCO2 35 L VBG pO2 56 VBG Base Excess 2 12/25/23 12/25/23 12/26/23 04:54 10:48 06:56 ABG pH 7.25 L 7.33 L 7.34 L ABG pCO2 52 H 45 43 ABG pO2 93 D 99 95 ABG HCO3 23 23 23 ABG O2 Saturation 97 98 98 ABG Base Excess -5 L -3 -2 VBG pH VBG pCO2 VBG pO2 VBG Base Excess 12/26/23 01/05/24 01/06/24 10:15 08:13 13:50 ABG pH 7.36 7.37 7.42 ABG pCO2 41 38 30 L ABG pO2 87 75 L 90 ABG HCO3 23 22 19 L ABG O2 Saturation 98 96 98 ABG Base Excess -2 -3 -5 L VBG pH VBG pCO2 VBG pO2 VBG Base Excess 01/06/24 01/07/24 01/07/24 21:44 00:30 04:35 ABG pH 7.12 L* D 7.22 L D 7.27 L ABG pCO2 69 H D 52 H D 45 ABG pO2 261 H D 161 H D 209 H D ABG HCO3 22 21 21 ABG O2 Saturation 100 H 99 H 100 H ABG Base Excess -7 L -6 L -6 L VBG pH VBG pCO2 VBG pO2 VBG Base Excess 01/08/24 01/09/24 01/09/24 04:50 04:14 15:49 ABG pH 7.24 L 7.26 L 7.27 L ABG pCO2 47 50 H 51 H ABG pO2 97 D 97 90 ABG HCO3 20 22 23 ABG O2 Saturation 98 98 97 ABG Base Excess -7 L -5 L -4 L VBG pH VBG pCO2 VBG pO2 VBG Base Excess 01/10/24 01/11/24 01/12/24 04:52 04:35 05:24 ABG pH 7.33 L 7.34 L 7.31 L ABG pCO2 43 43 49 H ABG pO2 101 99 106 ABG HCO3 23 23 25 ABG O2 Saturation 98 98 98 ABG Base Excess -3 -3 -2 VBG pH VBG pCO2 VBG pO2 VBG Base Excess Assessment & Plan A&P Narrative # Dysphagia with inability to eat patient currently on TPN # Status post appendectomy with ruptured acute appendicitis Plan Fiberoptic esophagogastroduodenoscopy with possible biopsy possible therapeutic intervention under intravenous moderate sedation Informed consent obtained after discussion of risk benefits and alternatives and the procedure will be done today Thank you once again for the opportunity to participate in the care of this patient Time Spent With Patient Time: Total time spent is greater than 50% in coordination of care (as documented) at patient's floor/unit and/or counseling patient:
[2024-01-30] MEDS: MIRTAZAPINE 15 MG TABLET PO (21:40)
[2024-01-31] VITALS (14 sets, daily range): BP systolic 125–141; BP diastolic 78–95; PULSE 103–115; RESP 16–29; TEMP 36.4–37.7; O2SAT 95–100
[2024-01-31] MEDS: [UNRECOGNIZED DRUG - OTHER] IV
[2024-01-31] MEDS: METOCLOPRAMIDE INJ 5 MG/ML VIAL 2 ML 10 MG IVP ×4 (05:45→17:11)
[2024-01-31] MEDS: metroNIDAZOLE/NS 500 MG IVPB 500 MG/100 ML BAG 200 MG IV ×3 (05:45→21:52)
--- NOTE | 2024-01-31 06:17 | PC.NURSE ---
Patient stated that heartburn and stomach pains have resumed again since last night, 01/30/2024
[2024-01-31 06:18] LABS: Basophils % (Auto) 0 % (0-2.5); Eosinophils # (Auto) 0.2 Thou/mm3 (0.0-0.5); Eosinophils % (Auto) 2 % (0-10); Immature Granulocytes % (Auto) 3 % (0-0); Immature Granulocytes Auto 0.34 Thou/mm3 (0.00-0.00); Lymphocytes % (Auto) 16 % (10-50); Mean Corpuscular HGB Conc 34.3 g/dl (31.0-37.0); Mean Corpuscular Hemoglobin 27.9 pg (25.0-35.0); Mean Corpuscular Volume 81 fL (80-100); Monocytes # (Auto) 0.9 Thou/mm3 (0.0-0.8); Monocytes % (Auto) 7 % (0-12); Neutrophils # (Auto) 9.1 Thou/mm3 (1.8-7.7); Neutrophils % (Auto) 73 % (37-80); Nucleated Red Blood Cell % 0 /100 WBC (0); Platelet Count 421 Thou/mm3 (140-440); RDW Standard Deviation 41.7 fL (35.1-43.9); Red Blood Count 2.47 Miln/mm3 (4.50-5.90); White Blood Count 12.6 Thou/mm3 (3.8-10.6)
[2024-01-31 06:21] LABS: Hemoglobin 6.9 g/dL (13.5-16.0)
[2024-01-31 06:22] LABS: Hematocrit 20.1 % (41.0-53.0)
[2024-01-31 06:56] LABS: Alanine Aminotransferase 11 U/L (10-49); Albumin, Serum 2.7 gm/dL (3.5-5.0); Albumin/Globulin Ratio 0.9 (1.2-2.2); Alkaline Phosphatase 92 U/L (46-116); Anion Gap 9 (7-16); Aspartate Amino Transferase 24 U/L (0-34); BUN/Creatinine Ratio 29 Ratio (12-20); Blood Urea Nitrogen 70 mg/dL (9-23); Calcium 7.5 mg/dL (8.3-10.6); Calcium (Corrected) 8.5 mg/dL (8.5-10.1); Carbon Dioxide 22.1 mMol/L (20.0-31.0); Chloride 104 mMol/L (98-107); Creatinine (Component) 2.4 mg/dL (0.6-1.3); Estimated Creatinine Clearance 38.9 mL/min (>60); Globulin 2.9 gm/dL (2.3-3.5); Glucose 119 mg/dL (74-106); Magnesium 1.6 mg/dL (1.6-2.6); Osmolality,Calculated 291 (275-295); Phosphorous 4.1 mg/dL (2.4-5.1); Potassium 3.3 mMol/L (3.4-5.1); Sodium 135 mMol/L (136-145); Total Protein 5.6 gm/dL (5.7-8.2); eGFR 33 See Note
[2024-01-31] MEDS: METOPROLOL SUCCINATE XL 25 MG TABCR 50 MG PO (08:22)
[2024-01-31] MEDS: LEVOFLOXACIN/D5W 250MG IVPB 250 MG/50 ML BAG 50 MG IV (08:23)
[2024-01-31] MEDS: CITRIC ACID/SODIUM CITR 15 ML UDC (BICITRA) 30 ML PO ×2 (08:23→20:09)
[2024-01-31] MEDS: CALCIUM ACETATE 667 MG TABLET PO ×3 (08:23→17:11)
[2024-01-31] MEDS: INSULIN GLARGINE (Lantus) 5 UNIT/0.05 ML (PER 5 UNITS) 10 UNIT SC (08:29)
[2024-01-31] MEDS: POTASSIUM CHLORIDE 20 mEq TABCR 40 MEQ PO (08:48)
[2024-01-31 09:53] LABS: Hematocrit 21.7 % (41.0-53.0)
[2024-01-31 09:55] LABS: Hemoglobin 7.4 g/dL (13.5-16.0)
[2024-01-31 11:16] LABS: Bilirubin,Total 0.2 mg/dL (0.3-1.2)
--- NOTE | 2024-01-31 11:27 | ESPR_ITS ---
Documentation for date of: 01/31/24 Subjective Subjective Interval history: Mr. Morales is a 43-year-old gentleman with no past medical history presented to [facility] on 12/21/2023 with perforated appendicitis with free purulent material in abdomen, underwent laparoscopic appendectomy 12/21/2023. repeat CT A/P showed pneumoperitoneum,so he had exploratory laparotomy on 12/23 and was found to have small bowel perforation, washout was performed & subsequent diverting ileostomy and wound VAC. 12/28: CT-guided percutaneous drainage catheter placed for subphrenic abscess. 12/31 underwent secondary closure of abdominal incision. 01/06/24 patient was taken to the OR. Findings:Purulent material was seen which was whitish and not foul-smelling, sutures removed, irrigated the wound extensively with saline solution and left #19 round Shel[place]-Weber on the right gutter, then the wound was closed with wound VAC leaving the fascia completely open. Patient tolerated the procedure well and left operating room in stable condition. Patient was in ICU for septic shock. Intubated and subsequently extubated. Transferred to medical floor. Has been receiving significant amount of antibiotics. Currently with ileostomy, VANESSA drain, open wound with wound VAC. Nephrology consultation requested for elevated BUN and creatinine. 01/25/2024 WBC 17.6, hemoglobin 7.4, platelets 392. Sodium 126, potassium 4.2, bicarbonate 18.7, BUN 40, creatinine 2.6, calcium 8.3, phosphorus 4.5, albumin 3.2 urinalysis shows 2+ protein 2+ blood with 72 RBCs and budding yeast. Abdominal CT on 01/21 showed subphrenic abscess. His current medications included amlodipine, metoprolol, Remeron, morphine as needed 01/25: Patient seen on the floors, resting in bed. Patient looks uncomfortable, ill-appearing. BUN 56, creatinine 3.5, eGFR 21. Patient complains of severe nausea and vomiting, unable to tolerate p.o. intake including liquids. Patient has Zofran on board as needed. 01/26: Patient seen and examined on the floors, resting in bed. Patient looks uncomfortable and ill-appearing. Patient complains of severe nausea and vomiting despite treatment with Zofran and Reglan. BUN 68, creatinine 4.6, eGFR 15. Plan to start patient on TPN, central line to be placed. Patient to go for nuclear medicine renal scan to assess for function, potential need for dialysis. Suspect ATN due to dehydration in setting of increased output and decreased p.o. intake. 1.4 L total output: 0.3 L stool output, 1.1 L urine output. 01/27: Patient seen and examined on floors, resting in bed. Patient comfortable, appears more awake than previous exams. Patient still notes severe nausea and vomiting, currently receiving TPN. Nuclear medicine renal scan pending. 1.4 L output: Drainage of milliliters stool, 900 mL urine. Hemoglobin 8.1. Sodium 129, potassium 3.7, bicarb 16.9, BUN 84, creatinine 4.6, EGFR 58. 01/28: Patient seen and examined on floors, resting in bed. Patient appears comfortable, alert, no specific complaints. Tolerating TPN well, has mild swelling of bilateral lower extremities, will decrease rate to 30 mL/h. Nuclear medicine renal scan showed adequate renal blood flow, no renal function bilaterally. Sodium 127, potassium 3.1 (40 mEq repleted), bicarb 17.9, BUN 85, creatinine 3.6, eGFR 21. Approximately 1 L urinary output. No plans for dialysis at this time. 01/29: Patient seen and examined on floors, resting in bed. Patient appears comfortable, alert, no specific complaints. Patient had EGD overnight, which showed gastroesophagitis and esophageal stenosis, treated with dilation. Patient has been placed on clear liquid diet, has been tolerating well, still receiving TPN. Encouraged oral hydration. Sodium 132, potassium 3.2, bicarb 20.5, BUN 83, creatinine 2.9, eGFR 27. 1.5 L urinary output. 01/30: Patient seen and examined on floors, resting bed. Patient appears comfortable, alert, complaining of decreased exercise tolerance. Explained importance of maintaining daily exercises and working physical therapy. Patient had episodes of coughing up blood, low hemoglobin (6.9), will receive blood transfusions as per primary team and surgery team. Maintain good oral hydration, approximately 2 L. Discussed titrating down TPN with primary team, patient will be transition to regular diet. Sodium 135, potassium 3.3, bicarb 22.1, BUN 70, creatinine 2.4, eGFR 33. Exam Vital Signs Temp Pulse Resp BP Pulse Ox O2 Del Method O2 Flow Rate 99.8 F 115 H 18 126/87 H 97 Room Air 3 01/31/24 07:51 01/31/24 08:22 01/31/24 07:51 01/31/24 08:22 01/31/24 07:51 01/31/24 07:51 01/29/24 21:55 FiO2 30 01/29/24 21:55 Narrative Exam GENERAL APPEARANCE: Well-appearing gentleman currently seen in telemetry CARDIOVASCULAR: Heart regular, no murmurs, tachycardia LUNGS/CHEST: Chest clear to auscultation. No rales, rhonchi, wheezing ABDOMEN: S/p diversion ileostomy, wound VAC, VANESSA drain. Mild diffuse tenderness. EXTREMITIES: No clubbing or cyanosis. Trace edema bilateral lower extremities. SKIN: Skin exam normal without any rashes MUSCULOSKELETAL: In bed. Mild weakness, likely due to deconditioning. NEUROLOGICAL : No neurological deficits, alert and awake Objective Labs 01/31/24 09:17 01/31/24 04:25 Labs: Laboratory Results - last 24 hr 01/31/24 01/31/24 01/31/24 04:25 09:17 10:40 WBC 12.6 H RBC 2.47 L Hgb 6.9 L* 7.4 L Hct 20.1 L* 21.7 L* MCV 81 MCH 27.9 MCHC 34.3 RDW Std Deviation 41.7 Plt Count 421 Neut % (Auto) 73 Lymph % (Auto) 16 [place] % (Auto) 7 Eos % (Auto) 2 Baso % (Auto) 0 Neut # (Auto) 9.1 H Lymph # (Auto) 2.0 [place] # (Auto) 0.9 H Eos # (Auto) 0.2 Baso # (Auto) 0.0 Immature Gran # (Auto) 0.34 H Absolute Nucleated RBC 0.00 Immature Gran % 3 H Nucleated RBC % 0 Sodium 135 L Potassium 3.3 L Chloride 104 Carbon Dioxide 22.1 Anion Gap 9 BUN 70 H Creatinine 2.4 H D Estim Creat Clear Calc 38.9 L eGFR 33 L BUN/Creatinine Ratio 29 H Glucose 119 H Calculated Osmolality 291 Calcium 7.5 L Corrected Calcium 8.5 Phosphorus 4.1 Magnesium 1.6 Total Bilirubin 0.2 L AST 24 ALT 11 Alkaline Phosphatase 92 Total Protein 5.6 L Albumin 2.7 L Globulin 2.9 Albumin/Globulin Ratio 0.9 L Crossmatch See Detail Blood Bank Wristband ID Yes ABG Interpretation ABG results: 12/21/23 12/24/23 12/25/23 15:50 19:45 02:34 ABG pH 7.40 7.23 L D ABG pCO2 40 56 H D ABG pO2 134 H 229 H D ABG HCO3 25 24 ABG O2 Saturation 99 H 100 H ABG Base Excess 0 -5 L VBG pH 7.48 VBG pCO2 35 L VBG pO2 56 VBG Base Excess 2 12/25/23 12/25/23 12/26/23 04:54 10:48 06:56 ABG pH 7.25 L 7.33 L 7.34 L ABG pCO2 52 H 45 43 ABG pO2 93 D 99 95 ABG HCO3 23 23 23 ABG O2 Saturation 97 98 98 ABG Base Excess -5 L -3 -2 VBG pH VBG pCO2 VBG pO2 VBG Base Excess 12/26/23 01/05/24 01/06/24 10:15 08:13 13:50 ABG pH 7.36 7.37 7.42 ABG pCO2 41 38 30 L ABG pO2 87 75 L 90 ABG HCO3 23 22 19 L ABG O2 Saturation 98 96 98 ABG Base Excess -2 -3 -5 L VBG pH VBG pCO2 VBG pO2 VBG Base Excess 01/06/24 01/07/24 01/07/24 21:44 00:30 04:35 ABG pH 7.12 L* D 7.22 L D 7.27 L ABG pCO2 69 H D 52 H D 45 ABG pO2 261 H D 161 H D 209 H D ABG HCO3 22 21 21 ABG O2 Saturation 100 H 99 H 100 H ABG Base Excess -7 L -6 L -6 L VBG pH VBG pCO2 VBG pO2 VBG Base Excess 01/08/24 01/09/24 01/09/24 04:50 04:14 15:49 ABG pH 7.24 L 7.26 L 7.27 L ABG pCO2 47 50 H 51 H ABG pO2 97 D 97 90 ABG HCO3 20 22 23 ABG O2 Saturation 98 98 97 ABG Base Excess -7 L -5 L -4 L VBG pH VBG pCO2 VBG pO2 VBG Base Excess 11/05/0301/11/24 01/12/24 04:52 04:35 05:24 ABG pH 7.33 L 7.34 L 7.31 L ABG pCO2 43 43 49 H ABG pO2 101 99 106 ABG HCO3 23 23 25 ABG O2 Saturation 98 98 98 ABG Base Excess -3 -3 -2 VBG pH VBG pCO2 VBG pO2 VBG Base Excess Quality Measures Quality Measures VTE prophylaxis (heparin subcutaneously) Assessment & Plan Assessment Current Active Medications: Generic Name Dose Route Start Last Admin Trade Name Freq PRN Reason Stop Dose Admin Acetaminophen 650 mg 01/24/24 23:23 01/26/24 21:09 Acetaminophen 325 Mg Tablet PO 02/21/24 20:48 650 mg Q6HR PRN Administration Pain Scale 1-3 or Fever >100.3 Amlodipine Besylate 10 mg 01/13/24 12:30 01/25/24 09:00 Amlodipine Besylate 5 Mg Tablet PO 02/12/24 12:29 10 mg QDAY TAL Administration Calcium Acetate 667 mg 01/28/24 17:30 01/31/24 08:23 Calcium Acetate 667 Mg Tablet PO 02/27/24 17:29 667 mg TIDWM TAL Administration Citric Acid/Sodium Citrate 30 ml 01/26/24 09:00 01/31/24 08:23 Citric Acid/Sodium Citr 15 Ml Udc (Bicitra) PO 02/25/24 08:59 30 ml BID TAL Administration Dextrose 25 ml 01/04/24 14:37 Dextrose 50%-Water Inj 50 Ml Syringe IV 02/03/24 14:36 Q15MIN PRN BG 50-70 responsive npo pt Dextrose 50 ml 01/04/24 14:37 Dextrose 50%-Water Inj 50 Ml Syringe IV 02/03/24 14:36 Q15MIN PRN BG <50 OR BG <70 & pt unresponsive Glucagon 1 mg 01/07/24 11:34 Glucagon Inj 1 Mg Vial IM Q15MIN PRN BG <70, and no IV access Levofloxacin/Dextrose 250 mg in 50 mls @ 50 mls/hr 01/26/24 11:30 01/31/24 08:23 Levaquin Ivpb IV 02/02/24 11:29 50 mls/hr QDAY TAL Administration Metronidazole 500 mg in 100 mls @ 200 mls/hr 01/26/24 11:30 01/31/24 05:45 Flagyl 500 Mg Iv IV 02/02/24 11:29 200 mls/hr Q8HR TAL Administration Fat Emulsion-[place] Oil/Soybean Oil 500 mls @ 32 mls/hr 01/28/24 18:00 01/29/24 19:01 Clinopid 20% Iv IV 02/27/24 17:59 Infused We@1800 TAL Infusion Calcium Gluconate 1 gm/ 1,027 mls @ 69.661 mls/hr 01/30/24 23:59 01/31/24 00:00 Magnesium Sulfate 1 gm/ Sodium IV 01/31/24 14:43 69.661 mls/hr Acetate 30 meq/ Amino Acids QDAY ONE Administration Calcium Gluconate 1 gm/ 1,049 mls @ 71.153 mls/hr 01/31/24 14:44 Magnesium Sulfate 2 gm/ Sodium IV 02/01/24 05:28 Acetate 30 meq/ Potassium QDAY ONE Chloride 40 meq/ Amino Acids Multivitamins/Minerals 10 ml/ 1,010 mls @ 68.508 mls/hr 02/01/24 05:29 Amino Acids IV 02/01/24 20:13 QDAY ONE Insulin Glargine 10 unit 01/04/24 14:45 01/31/24 08:29 Insulin Glargine (Lantus) 5 Unit/0.05 Ml (Per 5 Units) SC 02/03/24 14:44 10 unit QDAY TAL Administration Insulin Human Lispro 0 unit 01/28/24 00:00 01/31/24 05:54 Insulin Lispro (Admelog) 1 Unit/0.01 Ml Unit SC 02/27/24 00:00 Not Given Q6HR [facility] Protocol Labetalol HCl 10 mg 01/05/24 19:16 01/13/24 13:24 Labetalol Inj 5 Mg/Ml Vial 20 Ml IVP 02/04/24 19:29 10 mg Q6H PRN Administration SBP >170, DBP>110 Metoclopramide HCl 10 mg 01/29/24 20:54 01/31/24 05:45 Metoclopramide Inj 5 Mg/Ml Vial 2 Ml IVP 02/28/24 20:53 10 mg Q6HR TAL Administration Protocol Metoprolol Succinate 50 mg 01/26/24 09:00 01/31/24 08:22 Metoprolol Succinate Xl 25 Mg Tabcr PO 02/25/24 08:59 50 mg QDAY TAL Administration Mirtazapine 15 mg 01/23/24 21:00 01/30/24 21:40 Mirtazapine 15 Mg Tablet PO 02/22/24 20:59 15 mg HS TAL Administration Morphine Sulfate 1 mg 01/28/24 08:47 01/30/24 21:55 Morphine Sulf Inj 10 Mg/Ml Vial IVP 02/02/24 08:46 1 mg Q4HR PRN Administration PAIN SCALE 4-10(Mod-Sev Plan 43-year-old male with no significant past medical history who was admitted to the hospital by general surgery on 12/21/2023 for acute perforated appendicitis with multiple postop complications. #Acute kidney injury. #Suspected acute renal failure. Patient has no history of CKD. Patient has acutely worsening renal function: On 01/22 BUN 36, creatinine 1.3, eGFR greater than 60. 01/25 BUN 56, creatinine 3.5, eGFR 21. Patient has increased GI losses, wound VAC end ileostomy. Patient has very poor p.o. intake due to severe nausea and vomiting, unable to tolerate oral fluids. Patient receiving IVF. Nuclear medicine renal scan to assess renal function, potential need for dialysis. Patient to be started on TPN due to severe nausea/vomiting, poor p.o. intake. Nuclear medicine renal scan showed adequate renal blood flow, no renal function bilaterally. Consistent with ATN. Patient continues to produce good urine. Kidney function somewhat improved: BUN 85, creatinine 2.6, eGFR 21. Plan: -TPN, titrate down, transition to regular diet -Encourage oral hydration as tolerated. -Monitor/electrolytes as needed -Avoid nephrotoxic agents. -renally dose medications. -Will continue to monitor. -No plans for dialysis at this time #Sepsis likely secondary to acute perforated appendicitis #Acute perforated appendicitis #Small bowel perforation s/p ileostomy #Peritonitis #Subcapsular abscess s/p CT-guided drain placement #Subphrenic abscess, R #Sinus Tachycardia. #Hypertension. #Irritant contact dermatitis. #Normocytic normochromic anemia. #Acute hypoxic respiratory failure, resolved. #Pleural effusion, resolved. Management as per primary team. Diet: TPN, regular GI prophylaxis: protonix. DVT prophylaxis: heparin Code: Full code. Thank you for allow me to precipitate in the care of this patient. Plan of care discussed with attending Dr. Covarrubias. Kris Fuentes MD PGY-1 Attending Provider Attestation/Addendum Patient seen and examined with resident physician Dr. Fuentes. Note reviewed, agree with findings and recommendations. Patient feeling much better. Good urinary output. Creatinine improving. Slowly wean down on TPN. Spoke to Dr. Rubio. He will advance her diet. Physical therapy and out of bed to chair
--- NOTE | 2024-01-31 11:35 | ESPR_ITS ---
Documentation for date of: 01/31/24 Subjective Subjective Interval history: Patient's vitals, labs, imaging and chart reviewed. Patient interviewed and examined at bedside. No acute overnight events. Patient's AM labs revealed a Hemoglobin of 6.9. Patient did note he had some hemoptysis. A stat repeat was ordered which was 7.4. Spoke with general surgeon who recommended to transfuse the patient with 1 unit today and 1 tomorrow. Exam Vital Signs Temp Pulse Resp BP Pulse Ox O2 Del Method O2 Flow Rate 99.8 F 115 H 18 126/87 H 97 Room Air 3 01/31/24 07:51 01/31/24 08:22 01/31/24 07:51 01/31/24 08:22 01/31/24 07:51 01/31/24 07:51 01/29/24 21:55 FiO2 30 01/29/24 21:55 Narrative Exam General: A/O x3,in better spirits Eyes: PERRL, EOMI. Anicteric, vision grossly intact. Ears: No ear pain, no ear discharge, Hearing grossly intact. Nose: No nasal discharge. Mouth/Throat: Dry mucous membranes, no redness, no lesions. Neck: Neck supple, non-tender, no cervical lymphadenopathy. Lungs: Clear KYA to auscultation and percussion, No accessory muscle use. Cardio: Normal S1/S2, regular rhythm, no murmurs, no JVD Abdomen: Soft, Wound VAC in place with clean margins and healthy granulation tissue, no tenderness today, no palpable masses, peristalsis present, no guarding or rebound. Pleural drainage in place with with small purulent drainage in bag today. Extremities: Symmetrical, no significant deformities, no peripheral edema , non-tender, peripheral pulses presents. Skin: no lesions, warm to touch. Neuro: No focal neurological deficits. motor and sensory intact Psych: Cooperative, appropriate mood and effect. Objective Labs 02/01/24 05:40 02/01/24 05:40 Labs: Laboratory Results - last 24 hr 01/31/24 01/31/24 01/31/24 04:25 09:17 10:40 WBC 12.6 H RBC 2.47 L Hgb 6.9 L* 7.4 L Hct 20.1 L* 21.7 L* MCV 81 MCH 27.9 MCHC 34.3 RDW Std Deviation 41.7 Plt Count 421 Neut % (Auto) 73 Lymph % (Auto) 16 [place] % (Auto) 7 Eos % (Auto) 2 Baso % (Auto) 0 Neut # (Auto) 9.1 H Lymph # (Auto) 2.0 [place] # (Auto) 0.9 H Eos # (Auto) 0.2 Baso # (Auto) 0.0 Immature Gran # (Auto) 0.34 H Absolute Nucleated RBC 0.00 Immature Gran % 3 H Nucleated RBC % 0 Sodium 135 L Potassium 3.3 L Chloride 104 Carbon Dioxide 22.1 Anion Gap 9 BUN 70 H Creatinine 2.4 H D Estim Creat Clear Calc 38.9 L eGFR 33 L BUN/Creatinine Ratio 29 H Glucose 119 H Calculated Osmolality 291 Calcium 7.5 L Corrected Calcium 8.5 Phosphorus 4.1 Magnesium 1.6 Total Bilirubin 0.2 L AST 24 ALT 11 Alkaline Phosphatase 92 Total Protein 5.6 L Albumin 2.7 L Globulin 2.9 Albumin/Globulin Ratio 0.9 L Crossmatch See Detail Blood Bank Wristband ID Yes ABG Interpretation ABG results: 12/21/23 12/24/23 12/25/23 15:50 19:45 02:34 ABG pH 7.40 7.23 L D ABG pCO2 40 56 H D ABG pO2 134 H 229 H D ABG HCO3 25 24 ABG O2 Saturation 99 H 100 H ABG Base Excess 0 -5 L VBG pH 7.48 VBG pCO2 35 L VBG pO2 56 VBG Base Excess 2 12/25/23 12/25/23 12/26/23 04:54 10:48 06:56 ABG pH 7.25 L 7.33 L 7.34 L ABG pCO2 52 H 45 43 ABG pO2 93 D 99 95 ABG HCO3 23 23 23 ABG O2 Saturation 97 98 98 ABG Base Excess -5 L -3 -2 VBG pH VBG pCO2 VBG pO2 VBG Base Excess 12/26/23 01/05/24 01/06/24 10:15 08:13 13:50 ABG pH 7.36 7.37 7.42 ABG pCO2 41 38 30 L ABG pO2 87 75 L 90 ABG HCO3 23 22 19 L ABG O2 Saturation 98 96 98 ABG Base Excess -2 -3 -5 L VBG pH VBG pCO2 VBG pO2 VBG Base Excess 01/06/24 01/07/24 01/07/24 21:44 00:30 04:35 ABG pH 7.12 L* D 7.22 L D 7.27 L ABG pCO2 69 H D 52 H D 45 ABG pO2 261 H D 161 H D 209 H D ABG HCO3 22 21 21 ABG O2 Saturation 100 H 99 H 100 H ABG Base Excess -7 L -6 L -6 L VBG pH VBG pCO2 VBG pO2 VBG Base Excess 01/08/24 01/09/24 01/09/24 04:50 04:14 15:49 ABG pH 7.24 L 7.26 L 7.27 L ABG pCO2 47 50 H 51 H ABG pO2 97 D 97 90 ABG HCO3 20 22 23 ABG O2 Saturation 98 98 97 ABG Base Excess -7 L -5 L -4 L VBG pH VBG pCO2 VBG pO2 VBG Base Excess 01/10/24 01/11/24 01/12/24 04:52 04:35 05:24 ABG pH 7.33 L 7.34 L 7.31 L ABG pCO2 43 43 49 H ABG pO2 101 99 106 ABG HCO3 23 23 25 ABG O2 Saturation 98 98 98 ABG Base Excess -3 -3 -2 VBG pH VBG pCO2 VBG pO2 VBG Base Excess Quality Measures Quality Measures VTE prophylaxis (heparin subcutaneously) Assessment & Plan Assessment Current Active Medications: Generic Name Dose Route Start Last Admin Trade Name Freq PRN Reason Stop Dose Admin Acetaminophen 650 mg 01/24/24 23:23 01/26/24 21:09 Acetaminophen 325 Mg Tablet PO 02/21/24 20:48 650 mg Q6HR PRN Administration Pain Scale 1-3 or Fever >100.3 Amlodipine Besylate 10 mg 01/13/24 12:30 01/25/24 09:00 Amlodipine Besylate 5 Mg Tablet PO 02/12/24 12:29 10 mg QDAY TAL Administration Calcium Acetate 667 mg 01/28/24 17:30 01/31/24 08:23 Calcium Acetate 667 Mg Tablet PO 02/27/24 17:29 667 mg TIDWM TAL Administration Citric Acid/Sodium Citrate 30 ml 01/26/24 09:00 01/31/24 08:23 Citric Acid/Sodium Citr 15 Ml Udc (Bicitra) PO 02/25/24 08:59 30 ml BID TAL Administration Dextrose 25 ml 01/04/24 14:37 Dextrose 50%-Water Inj 50 Ml Syringe IV 02/03/24 14:36 Q15MIN PRN BG 50-70 responsive npo pt Dextrose 50 ml 01/04/24 14:37 Dextrose 50%-Water Inj 50 Ml Syringe IV 02/03/24 14:36 Q15MIN PRN BG <50 OR BG <70 & pt unresponsive Glucagon 1 mg 01/07/24 11:34 Glucagon Inj 1 Mg Vial IM Q15MIN PRN BG <70, and no IV access Levofloxacin/Dextrose 250 mg in 50 mls @ 50 mls/hr 01/26/24 11:30 01/31/24 08:23 Levaquin Ivpb IV 02/02/24 11:29 50 mls/hr QDAY TAL Administration Metronidazole 500 mg in 100 mls @ 200 mls/hr 01/26/24 11:30 01/31/24 05:45 Flagyl 500 Mg Iv IV 02/02/24 11:29 200 mls/hr Q8HR TAL Administration Fat Emulsion-[place] Oil/Soybean Oil 500 mls @ 32 mls/hr 01/28/24 18:00 01/29/24 19:01 Clinopid 20% Iv IV 02/27/24 17:59 Infused We@1800 TAL Infusion Calcium Gluconate 1 gm/ 1,027 mls @ 69.661 mls/hr 01/30/24 23:59 01/31/24 00:00 Magnesium Sulfate 1 gm/ Sodium IV 01/31/24 14:43 69.661 mls/hr Acetate 30 meq/ Amino Acids QDAY ONE Administration Calcium Gluconate 1 gm/ 1,049 mls @ 71.153 mls/hr 01/31/24 14:44 Magnesium Sulfate 2 gm/ Sodium IV 02/01/24 05:28 Acetate 30 meq/ Potassium QDAY ONE Chloride 40 meq/ Amino Acids Multivitamins/Minerals 10 ml/ 1,010 mls @ 68.508 mls/hr 02/01/24 05:29 Amino Acids IV 02/01/24 20:13 QDAY ONE Insulin Glargine 10 unit 01/04/24 14:45 01/31/24 08:29 Insulin Glargine (Lantus) 5 Unit/0.05 Ml (Per 5 Units) SC 02/03/24 14:44 10 unit QDAY TAL Administration Insulin Human Lispro 0 unit 01/28/24 00:00 01/31/24 05:54 Insulin Lispro (Admelog) 1 Unit/0.01 Ml Unit SC 02/27/24 00:00 Not Given Q6HR TAL Protocol Labetalol HCl 10 mg 01/05/24 19:16 01/13/24 13:24 Labetalol Inj 5 Mg/Ml Vial 20 Ml IVP 02/04/24 19:29 10 mg Q6H PRN Administration SBP >170, DBP>110 Metoclopramide HCl 10 mg 01/29/24 20:54 01/31/24 05:45 Metoclopramide Inj 5 Mg/Ml Vial 2 Ml IVP 02/28/24 20:53 10 mg Q6HR TAL Administration Protocol Metoprolol Succinate 50 mg 01/26/24 09:00 01/31/24 08:22 Metoprolol Succinate Xl 25 Mg Tabcr PO 02/25/24 08:59 50 mg QDAY TAL Administration Mirtazapine 15 mg 01/23/24 21:00 01/30/24 21:40 Mirtazapine 15 Mg Tablet PO 02/22/24 20:59 15 mg HS TAL Administration Morphine Sulfate 1 mg 01/28/24 08:47 01/30/24 21:55 Morphine Sulf Inj 10 Mg/Ml Vial IVP 02/02/24 08:46 1 mg Q4HR PRN Administration PAIN SCALE 4-10(Mod-Sev Plan 43-year-old male with no significant past medical history who was admitted to the hospital by general surgery on 12/21/2023 for acute perforated appendicitis with multiple postop complications. #Sepsis likely secondary to acute perforated appendicitis #Acute perforated appendicitis #Small bowel perforation s/p ileostomy #Peritonitis #Subcapsular abscess s/p CT-guided drain placement #Subphrenic abscess, R ?Initially patient met SIRS 2 out of 4 with leukocytosis and tachycardia ?Patient underwent multiple surgical procedures including laparoscopic appendectomy on day of admission (12/21/2023), 2 ex laps (12/25/2023 and 01/06/2024), and additional secondary closure of abdomen incision (01/01/2024). ?Multiple blood cultures, urine cultures, sputum cultures, and abdominal wound cultures have come back negative ?Abdomen/pelvis CT on 01/12/2024 showed localized fluid collection on the right lower abdomen consistent with an abscess ?Patient had percutaneous drainage catheter taken out by IR as per general surgeon ?Patient has not been having good oral intake therefore TPN will be continued as per general surgeon -DC'd vancomycin (day 9) and Zosyn (day 8 of second treatment) -WBC 16.5 (uptrended) and still tachycardic -CT abdomen/pelvis (01/18/24) showed Right subphrenic abscess which is very small in thickness, 13 mm and abscess below the liver measures 8.4 x 11.5 x 3.8 cm -IR placed pleural drainage again on 01/20/2024 -DC'd meropenem [01/18/2024-01/26/2024] Plan: -Continue TPN as per Dr. Rubio, decreased to 60cc/hr by Nephro. -EGD tonight ?Recommend to encourage oral intake and advance diet as tolerated. -Recommend to follow ID recommendations on Antibiotic regimen, Flagyl and levaquin [01/26/24-] -Recommend flushing pleural drainage. ?Recommend wound care. ?Will continue to monitor for any spiking any fever or elevated WBC. #ANITHA #Likely ATN #NAGMA ?Creatinine improving to 2.9 today -Likely ATN given multiple CT w contrast -Nephrology ordered nuclear medicine renal scan showed no renal function., as per nephrology this is likely ATN and patient will not need HD for now. Plan: -Recommend to continue IV fluids as per nephrology -Recommend to continue Bicitra as per nephrology ?Avoid nephrotoxic agents. ?Renally dose medications. -Nephrology consulted, appreciate recommendations ?Will continue to monitor. #Sinus Tachycardia #Hypertension. - Possibly related pain from recent surgeries, less likely infectious - EKGs in december 2023 reveal sinus tachycardia -Discontinued amlodipine. Plan: -Continue metoprolol succinate to 50 mg daily. #Irritant contact dermatitis. -Patient developed an inner thigh rash most likely due to friction Plan: -Will continue to monitor #Normocytic normochromic anemia. ?Hgb 6.9, patient did note some hemoptysis. Repeat Hgb was 7.4. Gen surgery recommends to transfuse 1 unit today and 1 tomorrow. ?Most likely a component of some blood loss given multiple surgical procedures and hemodilution. Plan: ?Recommend to transfuse if hemoglobin less than 7 ?Will continue to monitor #Hypokalemia, resolved #Hypomagnesemia #Hyponatremia #hypocalcemia #Hyperphosphatemia -Potassium 3.2, sodium 132, Mg 1.8, phos 4.4, Calcium 7.1 Plan: -Recommend to replete as necessary -Will continue to monitor #Acute hypoxic respiratory failure, resolved. #Pleural effusion, resolved. ?Patient was intubated in the ICU and was successfully extubated on 01/12/2024 ?Chest x-ray on 01/12/2024 showed no pneumonia and no right pleural fluid ?Patient had chest tube taken out by general surgeon -Will assess possibility to take chest tube out ?Checks x-ray 01/15/24 showed no pleural fluid Plan: ?Will continue to monitor Thank you for allowing us to be part of the patient's care. Disposition: Patient seen in telemetry, monitoring ADIS's, pain management, and oral intake. Diet: clear liquid diet GI prophylaxis: protonix. DVT prophylaxis: heparin sc. Code: Full code. Nutritional: TPN CARSON discussed with and supervised the international specialist physician who took care of this patient. I personally saw and examined the patient and discussed the assessment and plan with the entire medicine team, including my attending Dr. Padilla. I agree with the assessment and plan as documented above. Greg Ibanez M.D. Internal Medicine PGY-3 Attending Provider Attestation/Addendum I, Susannah Padilla DO, attest that I was physically present for the augustine portions of the service and evaluated the patient with the resident and I reviewed and discussed the case with the resident and agree with the resident's findings and plans of care as documented above Patient seen and evaluated this AM. Hgb noted to be 6.9. Case discussed with surgeon, recommends transfusing with goal Hgb of 10. 1 unit of pRBCs. Patient has no active complaints and tolerating diet. Output from drain appears reduced. Plan for CT abdomen tomorrow to assess resolution of abscess and possible removal of drain. Patient denies any pain or shortness of breath. Afebrile.
[2024-01-31] MEDS: INSULIN LISPRO (AdmeLOG) 1 UNIT/0.01 ML UNIT SC ×2 (11:50→17:22)
--- NOTE | 2024-01-31 13:34 | ESPR_ITS ---
Documentation for date of: 01/31/24 Subjective Subjective Interval history: Able to tolerate liquid diet I have asked the nurse to advance to full liquid and advance to GI soft diet I think he should do okay with that If that happens start tapering of the PPN Exam Vital Signs Temp Pulse Resp BP Pulse Ox O2 Del Method O2 Flow Rate 97.9 F 115 H 23 H 135/83 H 97 Room Air 3 01/31/24 12:00 01/31/24 12:00 01/31/24 12:00 01/31/24 12:00 01/31/24 12:00 01/31/24 12:00 01/29/24 21:55 FiO2 30 01/29/24 21:55 Constitutional Comments: Alert oriented Routine Respiratory Exam Comments: Normal to auscultation Routine Abdominal Exam Comments: Soft nontender Objective Labs 01/31/24 09:17 01/31/24 04:25 Labs: Laboratory Results - last 24 hr 01/31/24 01/31/24 01/31/24 04:25 09:17 10:40 WBC 12.6 H RBC 2.47 L Hgb 6.9 L* 7.4 L Hct 20.1 L* 21.7 L* MCV 81 MCH 27.9 MCHC 34.3 RDW Std Deviation 41.7 Plt Count 421 Neut % (Auto) 73 Lymph % (Auto) 16 [place] % (Auto) 7 Eos % (Auto) 2 Baso % (Auto) 0 Neut # (Auto) 9.1 H Lymph # (Auto) 2.0 [place] # (Auto) 0.9 H Eos # (Auto) 0.2 Baso # (Auto) 0.0 Immature Gran # (Auto) 0.34 H Absolute Nucleated RBC 0.00 Immature Gran % 3 H Nucleated RBC % 0 Sodium 135 L Potassium 3.3 L Chloride 104 Carbon Dioxide 22.1 Anion Gap 9 BUN 70 H Creatinine 2.4 H D Estim Creat Clear Calc 38.9 L eGFR 33 L BUN/Creatinine Ratio 29 H Glucose 119 H Calculated Osmolality 291 Calcium 7.5 L Corrected Calcium 8.5 Phosphorus 4.1 Magnesium 1.6 Total Bilirubin 0.2 L AST 24 ALT 11 Alkaline Phosphatase 92 Total Protein 5.6 L Albumin 2.7 L Globulin 2.9 Albumin/Globulin Ratio 0.9 L Crossmatch See Detail Blood Bank Wristband ID Yes Impressions Impression: # 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 Advance diet ABG Interpretation ABG results: 12/21/23 12/24/23 12/25/23 15:50 19:45 02:34 ABG pH 7.40 7.23 L D ABG pCO2 40 56 H D ABG pO2 134 H 229 H D ABG HCO3 25 24 ABG O2 Saturation 99 H 100 H ABG Base Excess 0 -5 L VBG pH 7.48 VBG pCO2 35 L VBG pO2 56 VBG Base Excess 2 12/25/23 12/25/23 12/26/23 04:54 10:48 06:56 ABG pH 7.25 L 7.33 L 7.34 L ABG pCO2 52 H 45 43 ABG pO2 93 D 99 95 ABG HCO3 23 23 23 ABG O2 Saturation 97 98 98 ABG Base Excess -5 L -3 -2 VBG pH VBG pCO2 VBG pO2 VBG Base Excess 12/26/23 01/05/24 01/06/24 10:15 08:13 13:50 ABG pH 7.36 7.37 7.42 ABG pCO2 41 38 30 L ABG pO2 87 75 L 90 ABG HCO3 23 22 19 L ABG O2 Saturation 98 96 98 ABG Base Excess -2 -3 -5 L VBG pH VBG pCO2 VBG pO2 VBG Base Excess 01/06/24 01/07/24 01/07/24 21:44 00:30 04:35 ABG pH 7.12 L* D 7.22 L D 7.27 L ABG pCO2 69 H D 52 H D 45 ABG pO2 261 H D 161 H D 209 H D ABG HCO3 22 21 21 ABG O2 Saturation 100 H 99 H 100 H ABG Base Excess -7 L -6 L -6 L VBG pH VBG pCO2 VBG pO2 VBG Base Excess 01/08/24 01/09/24 01/09/24 04:50 04:14 15:49 ABG pH 7.24 L 7.26 L 7.27 L ABG pCO2 47 50 H 51 H ABG pO2 97 D 97 90 ABG HCO3 20 22 23 ABG O2 Saturation 98 98 97 ABG Base Excess -7 L -5 L -4 L VBG pH VBG pCO2 VBG pO2 VBG Base Excess 11/02/24 11/03/24 11/04/24 04:52 04:35 05:24 ABG pH 7.33 L 7.34 L 7.31 L ABG pCO2 43 43 49 H ABG pO2 101 99 106 ABG HCO3 23 23 25 ABG O2 Saturation 98 98 98 ABG Base Excess -3 -3 -2 VBG pH VBG pCO2 VBG pO2 VBG Base Excess Assessment & Plan A&P Narrative # Dysphagia with inability to eat patient currently on TPN # Status post appendectomy with ruptured acute appendicitis Plan Fiberoptic esophagogastroduodenoscopy with possible biopsy possible therapeutic intervention under intravenous moderate sedation Informed consent obtained after discussion of risk benefits and alternatives and the procedure will be done today Thank you once again for the opportunity to participate in the care of this patient Time Spent With Patient Time: Total time spent is greater than 50% in coordination of care (as documented) at patient's floor/unit and/or counseling patient:
[2024-01-31] MEDS: CALCIUM GLUCONATE IV ×2 (15:16)
[2024-01-31] MEDS: MAGNESIUM SULF IV ×2 (15:16)
[2024-01-31] MEDS: [UNRECOGNIZED DRUG - OTHER] IV (15:16)
--- NOTE | 2024-01-31 19:12 | PD.SURPROG ---
Documentation for date of: 01/31/24 Subjective Subjective Brief History: As above Narrative: Patient's general condition is essentially unchanged but he is beginning to eat slightly better Exam Vital Signs Temp Pulse Resp BP Pulse Ox O2 Del Method O2 Flow Rate 98.2 F 114 H 18 133/95 H 100 Room Air 0 01/31/24 17:24 01/31/24 17:24 01/31/24 17:24 01/31/24 17:24 01/31/24 17:24 01/31/24 16:00 01/31/24 17:24 FiO2 30 01/29/24 21:55 His vital signs are normal other than tachycardia Routine Abdominal Exam Comments: Drainage in the tube from the abdomen is less. Assessment & Plan Assessment Additional comments: Impression: Slow recovery from the infection Seems to be improving kidney function Plan Plan: We shall order a CT on Friday and ask Dr. Caceres to remove the tube. Because of the persistent anemia we shall give him 2 units of packed cells 1 today and 1 tomorrow Procedures Procedures Exploratory laparotomy and drainage of the subcutaneous infection and wound VAC application
[2024-01-31] MEDS: MIRTAZAPINE 15 MG TABLET PO (20:09)
[2024-01-31] MEDS: MORPHINE SULF INJ 10 MG/ML VIAL IVP (22:13)
[2024-02-01] VITALS (14 sets, daily range): BP systolic 125–140; BP diastolic 80–98; PULSE 103–119; RESP 14–23; TEMP 36.2–37.2; O2SAT 96–99
[2024-02-01] MEDS: METOCLOPRAMIDE INJ 5 MG/ML VIAL 2 ML 10 MG IVP ×4 (00:17→17:35)
[2024-02-01] MEDS: metroNIDAZOLE/NS 500 MG IVPB 500 MG/100 ML BAG 200 MG IV ×3 (05:12→21:42)
[2024-02-01] MEDS: MULTIVITAMIN IV ×2 (05:12→19:21)
[2024-02-01] MEDS: AMINO ACID IV (05:12)
[2024-02-01] MEDS: [UNRECOGNIZED DRUG - OTHER] IV (05:12)
[2024-02-01] MEDS: INSULIN LISPRO (AdmeLOG) 1 UNIT/0.01 ML UNIT SC ×3 (05:29→17:29)
[2024-02-01 06:18] LABS: Basophils % (Auto) 0 % (0-2.5); Eosinophils # (Auto) 0.2 Thou/mm3 (0.0-0.5); Eosinophils % (Auto) 1 % (0-10); Hematocrit 21.2 % (41.0-53.0); Immature Granulocytes % (Auto) 2 % (0-0); Immature Granulocytes Auto 0.28 Thou/mm3 (0.00-0.00); Lymphocytes % (Auto) 23 % (10-50); Mean Corpuscular HGB Conc 34.4 g/dl (31.0-37.0); Mean Corpuscular Hemoglobin 28.2 pg (25.0-35.0); Mean Corpuscular Volume 82 fL (80-100); Monocytes # (Auto) 0.9 Thou/mm3 (0.0-0.8); Monocytes % (Auto) 7 % (0-12); Neutrophils # (Auto) 8.4 Thou/mm3 (1.8-7.7); Neutrophils % (Auto) 66 % (37-80); Nucleated Red Blood Cell % 0 /100 WBC (0); Platelet Count 414 Thou/mm3 (140-440); RDW Standard Deviation 42.9 fL (35.1-43.9); Red Blood Count 2.59 Miln/mm3 (4.50-5.90); White Blood Count 12.8 Thou/mm3 (3.8-10.6)
[2024-02-01 06:29] LABS: Hemoglobin 7.3 g/dL (13.5-16.0)
[2024-02-01 06:46] LABS: Alanine Aminotransferase 10 U/L (10-49); Albumin, Serum 2.9 gm/dL (3.5-5.0); Albumin/Globulin Ratio 0.9 (1.2-2.2); Alkaline Phosphatase 104 U/L (46-116); Anion Gap 10 (7-16); Aspartate Amino Transferase 22 U/L (0-34); BUN/Creatinine Ratio 26 Ratio (12-20); Bilirubin,Total 0.3 mg/dL (0.3-1.2); Blood Urea Nitrogen 52 mg/dL (9-23); Calcium 7.7 mg/dL (8.3-10.6); Calcium (Corrected) 8.6 mg/dL (8.5-10.1); Carbon Dioxide 21.8 mMol/L (20.0-31.0); Chloride 103 mMol/L (98-107); Estimated Creatinine Clearance 46.5 mL/min (>60); Globulin 3.1 gm/dL (2.3-3.5); Glucose 132 mg/dL (74-106); Magnesium 1.9 mg/dL (1.6-2.6); Osmolality,Calculated 286 (275-295); Phosphorous 3.5 mg/dL (2.4-5.1); Potassium 3.7 mMol/L (3.4-5.1); Sodium 135 mMol/L (136-145); eGFR 42 See Note
--- NOTE | 2024-02-01 08:43 | ESPR_ITS ---
<Statement entered by Cr Carey MD - 02/01/24 13:45> Senior Resident Attestation: I supervised/discussed management plan with software intern physician Dr. Goncalves, and was involved in the care of this patient. I personally saw and examined the patient and discussed the assessment and plan with the entire medicine team, including my attending. I agree with the assessment and plan as documented. Patient was seen and examined at bedside. No acute overnight events. His oral intake has improved significantly he was able to eat all his breakfast today. His abscess drain output remains good, plan to repeat CT scan tomorrow and possibly remove drain. Per general surgery will give 1 unit of PRBCs today. Will continue current management and monitor patient. Patient's care was discussed with attending physician, Dr. aPdilla. Cr Carey MD PGY-2. Documentation for date of: 02/01/24 Subjective Subjective Interval history: Patient was seen at bedside this morning. No overnight events. Patient has been tolerating more diet and has been eating a lot better, he states that essentially he does not eat the hospital food but has been eating the food brought in by family members. Patient will get 1 PRBC transfused today as per Dr. Rubio. Peritoneal drain still draining well and had a lot more drainage today than days prior, Dr. Rubio will get CT tomorrow to reassess abscess. No other complaints at this time. Exam Vital Signs Temp Pulse Resp BP Pulse Ox O2 Del Method O2 Flow Rate 98.9 F 109 H 23 H 140/86 H 98 Room Air 0 02/01/24 08:00 02/01/24 08:00 02/01/24 08:00 02/01/24 08:00 02/01/24 08:00 02/01/24 08:00 01/31/24 17:24 FiO2 30 01/29/24 21:55 Narrative Exam General: A/O x3,in better spirits Eyes: PERRL, EOMI. Anicteric, vision grossly intact. Ears: No ear pain, no ear discharge, Hearing grossly intact. Nose: No nasal discharge. Mouth/Throat: Dry mucous membranes, no redness, no lesions. Neck: Neck supple, non-tender, no cervical lymphadenopathy. Lungs: Clear KYA to auscultation and percussion, No accessory muscle use. Cardio: Normal S1/S2, regular rhythm, no murmurs, no JVD Abdomen: Soft, Wound VAC in place with clean margins and healthy granulation tissue, no tenderness, no palpable masses, peristalsis present, no guarding or rebound. Pleural drainage in place with with more drainage in bag today than days prior. Extremities: Symmetrical, no significant deformities, no peripheral edema , non-tender, peripheral pulses presents. Skin: no lesions, warm to touch. Neuro: No focal neurological deficits. motor and sensory intact Psych: Cooperative, appropriate mood and effect. Objective Labs 02/01/24 05:40 02/01/24 05:40 Labs: Laboratory Results - last 24 hr 01/31/24 01/31/24 01/31/24 04:25 09:17 10:40 WBC RBC Hgb 7.4 L Hct 21.7 L* MCV MCH MCHC RDW Std Deviation Plt Count Neut % (Auto) Lymph % (Auto) [place] % (Auto) Eos % (Auto) Baso % (Auto) Neut # (Auto) Lymph # (Auto) [place] # (Auto) Eos # (Auto) Baso # (Auto) Immature Gran # (Auto) Absolute Nucleated RBC Immature Gran % Nucleated RBC % Sodium Potassium Chloride Carbon Dioxide Anion Gap BUN Creatinine Estim Creat Clear Calc eGFR BUN/Creatinine Ratio Glucose Calculated Osmolality Calcium Corrected Calcium Phosphorus Magnesium Total Bilirubin 0.2 L AST ALT Alkaline Phosphatase Total Protein Albumin Globulin Albumin/Globulin Ratio Blood Type O Positive Antibody Screen POSITIVE Antibody Identification Anti-Jka Crossmatch See Detail Blood Bank Wristband ID Yes 02/01/24 05:40 WBC 12.8 H RBC 2.59 L Hgb 7.3 L Hct 21.2 L* MCV 82 MCH 28.2 MCHC 34.4 RDW Std Deviation 42.9 Plt Count 414 Neut % (Auto) 66 Lymph % (Auto) 23 [place] % (Auto) 7 Eos % (Auto) 1 Baso % (Auto) 0 Neut # (Auto) 8.4 H Lymph # (Auto) 3.0 [place] # (Auto) 0.9 H Eos # (Auto) 0.2 Baso # (Auto) 0.0 Immature Gran # (Auto) 0.28 H Absolute Nucleated RBC 0.00 Immature Gran % 2 H Nucleated RBC % 0 Sodium 135 L Potassium 3.7 Chloride 103 Carbon Dioxide 21.8 Anion Gap 10 BUN 52 H Creatinine 2.0 H Estim Creat Clear Calc 46.5 L eGFR 42 L BUN/Creatinine Ratio 26 H Glucose 132 H Calculated Osmolality 286 Calcium 7.7 L Corrected Calcium 8.6 Phosphorus 3.5 Magnesium 1.9 Total Bilirubin 0.3 AST 22 ALT 10 Alkaline Phosphatase 104 Total Protein 6.0 Albumin 2.9 L Globulin 3.1 Albumin/Globulin Ratio 0.9 L Blood Type Antibody Screen Antibody Identification Crossmatch Blood Bank Wristband ID ABG Interpretation ABG results: 12/21/23 12/24/23 12/25/23 15:50 19:45 02:34 ABG pH 7.40 7.23 L D ABG pCO2 40 56 H D ABG pO2 134 H 229 H D ABG HCO3 25 24 ABG O2 Saturation 99 H 100 H ABG Base Excess 0 -5 L VBG pH 7.48 VBG pCO2 35 L VBG pO2 56 VBG Base Excess 2 12/25/23 12/25/23 12/26/23 04:54 10:48 06:56 ABG pH 7.25 L 7.33 L 7.34 L ABG pCO2 52 H 45 43 ABG pO2 93 D 99 95 ABG HCO3 23 23 23 ABG O2 Saturation 97 98 98 ABG Base Excess -5 L -3 -2 VBG pH VBG pCO2 VBG pO2 VBG Base Excess 12/26/23 01/05/24 01/06/24 10:15 08:13 13:50 ABG pH 7.36 7.37 7.42 ABG pCO2 41 38 30 L ABG pO2 87 75 L 90 ABG HCO3 23 22 19 L ABG O2 Saturation 98 96 98 ABG Base Excess -2 -3 -5 L VBG pH VBG pCO2 VBG pO2 VBG Base Excess 01/06/24 01/07/24 01/07/24 21:44 00:30 04:35 ABG pH 7.12 L* D 7.22 L D 7.27 L ABG pCO2 69 H D 52 H D 45 ABG pO2 261 H D 161 H D 209 H D ABG HCO3 22 21 21 ABG O2 Saturation 100 H 99 H 100 H ABG Base Excess -7 L -6 L -6 L VBG pH VBG pCO2 VBG pO2 VBG Base Excess 01/08/24 01/09/24 01/09/24 04:50 04:14 15:49 ABG pH 7.24 L 7.26 L 7.27 L ABG pCO2 47 50 H 51 H ABG pO2 97 D 97 90 ABG HCO3 20 22 23 ABG O2 Saturation 98 98 97 ABG Base Excess -7 L -5 L -4 L VBG pH VBG pCO2 VBG pO2 VBG Base Excess 01/10/24 01/11/24 01/12/24 04:52 04:35 05:24 ABG pH 7.33 L 7.34 L 7.31 L ABG pCO2 43 43 49 H ABG pO2 101 99 106 ABG HCO3 23 23 25 ABG O2 Saturation 98 98 98 ABG Base Excess -3 -3 -2 VBG pH VBG pCO2 VBG pO2 VBG Base Excess Quality Measures Quality Measures VTE prophylaxis (heparin subcutaneously) Assessment & Plan Assessment Current Active Medications: Generic Name Dose Route Start Last Admin Trade Name Freq PRN Reason Stop Dose Admin Acetaminophen 650 mg 01/24/24 23:23 01/26/24 21:09 Acetaminophen 325 Mg Tablet PO 02/21/24 20:48 650 mg Q6HR PRN Administration Pain Scale 1-3 or Fever >100.3 Amlodipine Besylate 10 mg 01/13/24 12:30 01/25/24 09:00 Amlodipine Besylate 5 Mg Tablet PO 02/12/24 12:29 10 mg QDAY TAL Administration Calcium Acetate 667 mg 01/28/24 17:30 01/31/24 17:11 Calcium Acetate 667 Mg Tablet PO 02/27/24 17:29 667 mg TIDWM TAL Administration Citric Acid/Sodium Citrate 30 ml 01/26/24 09:00 01/31/24 20:09 Citric Acid/Sodium Citr 15 Ml Udc (Bicitra) PO 02/25/24 08:59 30 ml BID TAL Administration Dextrose 25 ml 01/04/24 14:37 Dextrose 50%-Water Inj 50 Ml Syringe IV 02/03/24 14:36 Q15MIN PRN BG 50-70 responsive npo pt Dextrose 50 ml 01/04/24 14:37 Dextrose 50%-Water Inj 50 Ml Syringe IV 02/03/24 14:36 Q15MIN PRN BG <50 OR BG <70 & pt unresponsive Glucagon 1 mg 01/07/24 11:34 Glucagon Inj 1 Mg Vial IM Q15MIN PRN BG <70, and no IV access Levofloxacin/Dextrose 250 mg in 50 mls @ 50 mls/hr 01/26/24 11:30 01/31/24 08:23 Levaquin Ivpb IV 02/02/24 11:29 50 mls/hr QDAY TAL Administration Metronidazole 500 mg in 100 mls @ 200 mls/hr 01/26/24 11:30 02/01/24 05:12 Flagyl 500 Mg Iv IV 02/02/24 11:29 200 mls/hr Q8HR TAL Administration Fat Emulsion-[place] Oil/Soybean Oil 500 mls @ 32 mls/hr 01/28/24 18:00 01/29/24 19:01 Clinopid 20% Iv IV 02/27/24 17:59 Infused We@1800 TAL Infusion Multivitamins/Minerals 10 ml/ 1,010 mls @ 68.508 mls/hr 02/01/24 05:29 02/01/24 05:12 Amino Acids IV 02/01/24 20:13 68.508 mls/hr QDAY ONE Administration Insulin Glargine 10 unit 01/04/24 14:45 01/31/24 08:29 Insulin Glargine (Lantus) 5 Unit/0.05 Ml (Per 5 Units) SC 02/03/24 14:44 10 unit QDAY TAL Administration Insulin Human Lispro 0 unit 01/28/24 00:00 02/01/24 05:29 Insulin Lispro (Admelog) 1 Unit/0.01 Ml Unit SC 02/27/24 00:00 1 unit Q6HR TLA Administration Protocol Labetalol HCl 10 mg 01/05/24 19:16 01/13/24 13:24 Labetalol Inj 5 Mg/Ml Vial 20 Ml IVP 02/04/24 19:29 10 mg Q6H PRN Administration SBP >170, DBP>110 Metoclopramide HCl 10 mg 01/29/24 20:54 02/01/24 05:12 Metoclopramide Inj 5 Mg/Ml Vial 2 Ml IVP 02/28/24 20:53 10 mg Q6HR TAL Administration Protocol Metoprolol Succinate 50 mg 01/26/24 09:00 01/31/24 08:22 Metoprolol Succinate Xl 25 Mg Tabcr PO 02/25/24 08:59 50 mg QDAY TAL Administration Mirtazapine 15 mg 01/23/24 21:00 01/31/24 20:09 Mirtazapine 15 Mg Tablet PO 02/22/24 20:59 15 mg HS TAL Administration Morphine Sulfate 1 mg 01/28/24 08:47 01/31/24 22:13 Morphine Sulf Inj 10 Mg/Ml Vial IVP 02/02/24 08:46 1 mg Q4HR PRN Administration PAIN SCALE 4-10(Mod-Sev Plan 43-year-old male with no significant past medical history who was admitted to the hospital by general surgery on 12/21/2023 for acute perforated appendicitis with multiple postop complications. #Sepsis likely secondary to acute perforated appendicitis #Acute perforated appendicitis #Small bowel perforation s/p ileostomy #Peritonitis #Subcapsular abscess s/p CT-guided drain placement #Subphrenic abscess, R ?Initially patient met SIRS 2 out of 4 with leukocytosis and tachycardia ?Patient underwent multiple surgical procedures including laparoscopic appendectomy on day of admission (12/21/2023), 2 ex laps (12/25/2023 and 01/06/2024), and additional secondary closure of abdomen incision (01/01/2024). ?Multiple blood cultures, urine cultures, sputum cultures, and abdominal wound cultures have come back negative ?Abdomen/pelvis CT on 01/12/2024 showed localized fluid collection on the right lower abdomen consistent with an abscess ?Patient had percutaneous drainage catheter taken out by IR as per general surgeon ?Patient has not been having good oral intake therefore TPN will be continued as per general surgeon -DC'd vancomycin (day 9) and Zosyn (day 8 of second treatment) -WBC 12.8 (downtrended) and still tachycardic -CT abdomen/pelvis (01/18/24) showed Right subphrenic abscess which is very small in thickness, 13 mm and abscess below the liver measures 8.4 x 11.5 x 3.8 cm -IR placed pleural drainage again on 01/20/2024 -DC'd meropenem [01/18/2024-01/26/2024] Plan: -Continue TPN as per Dr. Rubio, titrate down as patient is having PO intake. ?Recommend to encourage oral intake and advance diet as tolerated. -Recommend to follow ID recommendations on Antibiotic regimen, Flagyl and levaquin [01/26/24-] -Recommend flushing pleural drainage. ?Recommend wound care. ?Will continue to monitor for any spiking any fever or elevated WBC. #ANITHA #Likely ATN #NAGMA ?Creatinine improving to 2.9 today -Likely ATN given multiple CT w contrast -Nephrology ordered nuclear medicine renal scan showed no renal function., as per nephrology this is likely ATN and patient will not need HD for now. Plan: -Recommend encourage oral hydration -Recommend to continue Bicitra as per nephrology ?Avoid nephrotoxic agents. ?Renally dose medications. -Nephrology consulted, appreciate recommendations ?Will continue to monitor. #Sinus Tachycardia #Hypertension. - Possibly related pain from recent surgeries, less likely infectious - EKGs in december 2023 reveal sinus tachycardia -Discontinued amlodipine. Plan: -Continue metoprolol succinate to 50 mg daily. #Irritant contact dermatitis. -Patient developed an inner thigh rash most likely due to friction Plan: -Will continue to monitor #Normocytic normochromic anemia. ?Hgb 7.3 ?Most likely a component of some blood loss given multiple surgical procedures and hemodilution Plan: -Getting 1 PRBC again today as per Dr. Rubio. ?Recommend to transfuse if hemoglobin less than 7 ?Will continue to monitor #Hypokalemia, resolved #Hypomagnesemia #Hyponatremia #hypocalcemia #Hyperphosphatemia -Potassium 3.7, sodium 135, Mg 1.9, phos 3.5, Calcium 7.7 Plan: -Recommend to replete as necessary -Will continue to monitor #Acute hypoxic respiratory failure, resolved. #Pleural effusion, resolved. ?Patient was intubated in the ICU and was successfully extubated on 01/12/2024 ?Chest x-ray on 01/12/2024 showed no pneumonia and no right pleural fluid ?Patient had chest tube taken out by general surgeon -Will assess possibility to take chest tube out ?Checks x-ray 01/15/24 showed no pleural fluid Plan: ?Will continue to monitor Thank you for allowing us to be part of the patient's care. Disposition: Patient seen in telemetry, monitoring ADIS's, pain management, and oral intake. Diet:Regular GI prophylaxis: protonix. DVT prophylaxis: heparin sc. Code: Full code. Nutritional: TPN Case disclosed with Attending Dr. Padilla and My senior Dr. Carey PGY2 Cortez Harp PGY1 Attending Provider Attestation/Addendum I, Susannah Padilla DO, attest that I was physically present for the augustine portions of the service and evaluated the patient with the resident and I reviewed and discussed the case with the resident and agree with the resident's findings and plans of care as documented above Patient seen and evaluated this AM. He states he is feeling well. 1 unit of pRBCs ordered to be transfused today by surgeon. Patient does not feel short of breath and denies fevers, chills, nausea or vomiting. Patient was started on regular diet and tolerating well. Titrate down TPN as tolerated. Plan for CT scan tomorrow to assess resolution of abscess. No acute events overnight otherwise.
[2024-02-01] MEDS: METOPROLOL SUCCINATE XL 25 MG TABCR 50 MG PO (09:45)
[2024-02-01] MEDS: CALCIUM ACETATE 667 MG TABLET PO (09:45)
[2024-02-01] MEDS: INSULIN GLARGINE (Lantus) 5 UNIT/0.05 ML (PER 5 UNITS) 10 UNIT SC (09:52)
[2024-02-01] MEDS: CITRIC ACID/SODIUM CITR 15 ML UDC (BICITRA) 30 ML PO ×2 (09:58→20:38)
[2024-02-01] MEDS: LEVOFLOXACIN/D5W 250MG IVPB 250 MG/50 ML BAG 50 MG IV (09:58)
[2024-02-01] MEDS: EPOETIN ALFA-EPBX INJ 10,000 UNIT/ML VIAL (ESRD) 10000 UNIT SC (10:40)
[2024-02-01] MEDS: ferumoxytoL (NON-ESRD) 510 MG in SODIUM CHLORIDE 0.9% 100 ML 234 MG IV (10:40)
--- NOTE | 2024-02-01 12:13 | ESPR_ITS ---
Documentation for date of: 02/01/24 Subjective Subjective Interval history: Mr. Morales is a 43-year-old gentleman with no past medical history presented to [facility] on 12/21/2023 with perforated appendicitis with free purulent material in abdomen, underwent laparoscopic appendectomy 12/21/[address]23. repeat CT A/P showed pneumoperitoneum,so he had exploratory laparotomy on 12/23 and was found to have small bowel perforation, washout was performed & subsequent diverting ileostomy and wound VAC. 12/28: CT-guided percutaneous drainage catheter placed for subphrenic abscess. 12/31 underwent secondary closure of abdominal incision. 01/06/24 patient was taken to the OR. Findings:Purulent material was seen which was whitish and not foul-smelling, sutures removed, irrigated the wound extensively with saline solution and left #19 round [place]We[place] on the right gutter, then the wound was closed with wound VAC leaving the fascia completely open. Patient tolerated the procedure well and left operating room in stable condition. Patient was in ICU for septic shock. Intubated and subsequently extubated. Transferred to medical floor. Has been receiving significant amount of antibiotics. Currently with ileostomy, VANESSA drain, open wound with wound VAC. Nephrology consultation requested for elevated BUN and creatinine. 01/25/2024 WBC 17.6, hemoglobin 7.4, platelets 392. Sodium 126, potassium 4.2, bicarbonate 18.7, BUN 40, creatinine 2.6, calcium 8.3, phosphorus 4.5, albumin 3.2 urinalysis shows 2+ protein 2+ blood with 72 RBCs and budding yeast. Abdominal CT on 01/21 showed subphrenic abscess. His current medications included amlodipine, metoprolol, Remeron, morphine as needed 01/25: Patient seen on the floors, resting in bed. Patient looks uncomfortable, ill-appearing. BUN 56, creatinine 3.5, eGFR 21. Patient complains of severe nausea and vomiting, unable to tolerate p.o. intake including liquids. Patient has Zofran on board as needed. 01/26: Patient seen and examined on the floors, resting in bed. Patient looks uncomfortable and ill-appearing. Patient complains of severe nausea and vomiting despite treatment with Zofran and Reglan. BUN 68, creatinine 4.6, eGFR 15. Plan to start patient on TPN, central line to be placed. Patient to go for nuclear medicine renal scan to assess for function, potential need for dialysis. Suspect ATN due to dehydration in setting of increased output and decreased p.o. intake. 1.4 L total output: 0.3 L stool output, 1.1 L urine output. 01/27: Patient seen and examined on floors, resting in bed. Patient comfortable, appears more awake than previous exams. Patient still notes severe nausea and vomiting, currently receiving TPN. Nuclear medicine renal scan pending. 1.4 L output: Drainage of milliliters stool, 900 mL urine. Hemoglobin 8.1. Sodium 129, potassium 3.7, bicarb 16.9, BUN 84, creatinine 4.6, EGFR 58. 01/28: Patient seen and examined on floors, resting in bed. Patient appears comfortable, alert, no specific complaints. Tolerating TPN well, has mild swelling of bilateral lower extremities, will decrease rate to 30 mL/h. Nuclear medicine renal scan showed adequate renal blood flow, no renal function bilaterally. Sodium 127, potassium 3.1 (40 mEq repleted), bicarb 17.9, BUN 85, creatinine 3.6, eGFR 21. Approximately 1 L urinary output. No plans for dialysis at this time. 01/29: Patient seen and examined on floors, resting in bed. Patient appears comfortable, alert, no specific complaints. Patient had EGD overnight, which showed gastroesophagitis and esophageal stenosis, treated with dilation. Patient has been placed on clear liquid diet, has been tolerating well, still receiving TPN. Encouraged oral hydration. Sodium 132, potassium 3.2, bicarb 20.5, BUN 83, creatinine 2.9, eGFR 27. 1.5 L urinary output. 01/30: Patient seen and examined on floors, resting bed. Patient appears comfortable, alert, complaining of decreased exercise tolerance. Explained importance of maintaining daily exercises and working physical therapy. Patient had episodes of coughing up blood, low hemoglobin (6.9), will receive blood transfusions as per primary team and surgery team. Maintain good oral hydration, approximately 2 L. Discussed titrating down TPN with primary team, patient will be transition to regular diet. Sodium 135, potassium 3.3, bicarb 22.1, BUN 70, creatinine 2.4, eGFR 33. 01/31: Patient seen and examined on floors, resting in bed. Patient appears comfortable, alert. Patient diet is being advanced, tolerating well, denies nausea/vomiting. Sodium 135, potassium 3.7, bicarb 21.8, BUN 32, creatinine 2.0, eGFR 42. Exam Vital Signs Temp Pulse Resp BP Pulse Ox O2 Del Method O2 Flow Rate 98.4 F 113 H 19 128/87 H 97 Room Air 0 02/01/24 11:09 02/01/24 11:09 02/01/24 11:09 02/01/24 11:09 02/01/24 11:09 02/01/24 08:00 02/01/24 11:09 FiO2 30 01/29/24 21:55 Narrative Exam GENERAL APPEARANCE: Well-appearing gentleman currently seen in telemetry CARDIOVASCULAR: Heart regular, no murmurs, tachycardia LUNGS/CHEST: Chest clear to auscultation. No rales, rhonchi, wheezing ABDOMEN: S/p diversion ileostomy, wound VAC, VANESSA drain. Mild diffuse tenderness. EXTREMITIES: No clubbing or cyanosis. Trace edema bilateral lower extremities. SKIN: Skin exam normal without any rashes MUSCULOSKELETAL: In bed. Mild weakness, likely due to deconditioning. NEUROLOGICAL : No neurological deficits, alert and awake Objective Labs 02/01/24 05:40 02/01/24 05:40 Labs: Laboratory Results - last 24 hr 01/31/24 02/01/24 10:40 05:40 WBC 12.8 H RBC 2.59 L Hgb 7.3 L Hct 21.2 L* MCV 82 MCH 28.2 MCHC 34.4 RDW Std Deviation 42.9 Plt Count 414 Neut % (Auto) 66 Lymph % (Auto) 23 [place] % (Auto) 7 Eos % (Auto) 1 Baso % (Auto) 0 Neut # (Auto) 8.4 H Lymph # (Auto) 3.0 [place] # (Auto) 0.9 H Eos # (Auto) 0.2 Baso # (Auto) 0.0 Immature Gran # (Auto) 0.28 H Absolute Nucleated RBC 0.00 Immature Gran % 2 H Nucleated RBC % 0 Sodium 135 L Potassium 3.7 Chloride 103 Carbon Dioxide 21.8 Anion Gap 10 BUN 52 H Creatinine 2.0 H Estim Creat Clear Calc 46.5 L eGFR 42 L BUN/Creatinine Ratio 26 H Glucose 132 H Calculated Osmolality 286 Calcium 7.7 L Corrected Calcium 8.6 Phosphorus 3.5 Magnesium 1.9 Total Bilirubin 0.3 AST 22 ALT 10 Alkaline Phosphatase 104 Total Protein 6.0 Albumin 2.9 L Globulin 3.1 Albumin/Globulin Ratio 0.9 L Blood Type O Positive Antibody Screen POSITIVE Antibody Identification Anti-Jka Crossmatch See Detail Blood Bank Wristband ID Yes ABG Interpretation ABG results: 12/21/23 12/24/23 12/25/23 15:50 19:45 02:34 ABG pH 7.40 7.23 L D ABG pCO2 40 56 H D ABG pO2 134 H 229 H D ABG HCO3 25 24 ABG O2 Saturation 99 H 100 H ABG Base Excess 0 -5 L VBG pH 7.48 VBG pCO2 35 L VBG pO2 56 VBG Base Excess 2 12/25/23 12/25/23 12/26/23 04:54 10:48 06:56 ABG pH 7.25 L 7.33 L 7.34 L ABG pCO2 52 H 45 43 ABG pO2 93 D 99 95 ABG HCO3 23 23 23 ABG O2 Saturation 97 98 98 ABG Base Excess -5 L -3 -2 VBG pH VBG pCO2 VBG pO2 VBG Base Excess 12/26/23 01/05/24 01/06/24 10:15 08:13 13:50 ABG pH 7.36 7.37 7.42 ABG pCO2 41 38 30 L ABG pO2 87 75 L 90 ABG HCO3 23 22 19 L ABG O2 Saturation 98 96 98 ABG Base Excess -2 -3 -5 L VBG pH VBG pCO2 VBG pO2 VBG Base Excess 01/06/24 01/07/24 01/07/24 21:44 00:30 04:35 ABG pH 7.12 L* D 7.22 L D 7.27 L ABG pCO2 69 H D 52 H D 45 ABG pO2 261 H D 161 H D 209 H D ABG HCO3 22 21 21 ABG O2 Saturation 100 H 99 H 100 H ABG Base Excess -7 L -6 L -6 L VBG pH VBG pCO2 VBG pO2 VBG Base Excess 01/08/24 01/09/24 01/09/24 04:50 04:14 15:49 ABG pH 7.24 L 7.26 L 7.27 L ABG pCO2 47 50 H 51 H ABG pO2 97 D 97 90 ABG HCO3 20 22 23 ABG O2 Saturation 98 98 97 ABG Base Excess -7 L -5 L -4 L VBG pH VBG pCO2 VBG pO2 VBG Base Excess 01/10/24 01/11/24 01/12/24 04:52 04:35 05:24 ABG pH 7.33 L 7.34 L 7.31 L ABG pCO2 43 43 49 H ABG pO2 101 99 106 ABG HCO3 23 23 25 ABG O2 Saturation 98 98 98 ABG Base Excess -3 -3 -2 VBG pH VBG pCO2 VBG pO2 VBG Base Excess Quality Measures Quality Measures VTE prophylaxis (heparin subcutaneously) Assessment & Plan Assessment Current Active Medications: Generic Name Dose Route Start Last Admin Trade Name Freq PRN Reason Stop Dose Admin Acetaminophen 650 mg 01/24/24 23:23 01/26/24 21:09 Acetaminophen 325 Mg Tablet PO 02/21/24 20:48 650 mg Q6HR PRN Administration Pain Scale 1-3 or Fever >100.3 Amlodipine Besylate 10 mg 01/13/24 12:30 01/25/24 09:00 Amlodipine Besylate 5 Mg Tablet PO 02/12/24 12:29 10 mg QDAY TAL Administration Calcium Acetate 667 mg 01/28/24 17:30 02/01/24 09:45 Calcium Acetate 667 Mg Tablet PO 02/27/24 17:29 667 mg TIDWM TAL Administration Citric Acid/Sodium Citrate 30 ml 01/26/24 09:00 02/01/24 09:58 Citric Acid/Sodium Citr 15 Ml Udc (Bicitra) PO 02/25/24 08:59 30 ml BID TAL Administration Dextrose 25 ml 01/04/24 14:37 Dextrose 50%-Water Inj 50 Ml Syringe IV 02/03/24 14:36 Q15MIN PRN BG 50-70 responsive npo pt Dextrose 50 ml 01/04/24 14:37 Dextrose 50%-Water Inj 50 Ml Syringe IV 02/03/24 14:36 Q15MIN PRN BG <50 OR BG <70 & pt unresponsive Glucagon 1 mg 01/07/24 11:34 Glucagon Inj 1 Mg Vial IM Q15MIN PRN BG <70, and no IV access Levofloxacin/Dextrose 250 mg in 50 mls @ 50 mls/hr 01/26/24 11:30 02/01/24 09:58 Levaquin Ivpb IV 02/02/24 11:29 50 mls/hr QDAY TAL Administration Metronidazole 500 mg in 100 mls @ 200 mls/hr 01/26/24 11:30 02/01/24 05:12 Flagyl 500 Mg Iv IV 02/02/24 11:29 200 mls/hr Q8HR TAL Administration Fat Emulsion-[place] Oil/Soybean Oil 500 mls @ 32 mls/hr 01/28/24 18:00 01/29/24 19:01 Clinopid 20% Iv IV 02/27/24 17:59 Infused We@1800 TAL Infusion Multivitamins/Minerals 10 ml/ 1,010 mls @ 68.508 mls/hr 02/01/24 05:29 02/01/24 05:12 Amino Acids IV 02/01/24 20:13 68.508 mls/hr QDAY ONE Administration Multivitamins/Minerals 10 ml/ 1,042 mls @ 70 mls/hr 02/01/24 20:14 Calcium Gluconate 1 gm/ IV 02/02/24 11:07 Potassium Chloride 20 meq/ QDAY ONE Magnesium Sulfate 1 gm/ Sodium Acetate 20 meq/ Amino Acids Insulin Glargine 10 unit 01/04/24 14:45 02/01/24 09:52 Insulin Glargine (Lantus) 5 Unit/0.05 Ml (Per 5 Units) SC 02/03/24 14:44 10 unit QDAY TAL Administration Insulin Human Lispro 0 unit 01/28/24 00:00 02/01/24 11:57 Insulin Lispro (Admelog) 1 Unit/0.01 Ml Unit SC 02/27/24 00:00 1 unit Q6HR TAL Administration Protocol Labetalol HCl 10 mg 01/05/24 19:16 01/13/24 13:24 Labetalol Inj 5 Mg/Ml Vial 20 Ml IVP 02/04/24 19:29 10 mg Q6H PRN Administration SBP >170, DBP>110 Metoclopramide HCl 10 mg 01/29/24 20:54 02/01/24 05:12 Metoclopramide Inj 5 Mg/Ml Vial 2 Ml IVP 02/28/24 20:53 10 mg Q6HR TAL Administration Protocol Metoprolol Succinate 50 mg 01/26/24 09:00 02/01/24 09:45 Metoprolol Succinate Xl 25 Mg Tabcr PO 02/25/24 08:59 50 mg QDAY TAL Administration Mirtazapine 15 mg 01/23/24 21:00 01/31/24 20:09 Mirtazapine 15 Mg Tablet PO 02/22/24 20:59 15 mg HS TAL Administration Morphine Sulfate 1 mg 01/28/24 08:47 01/31/24 22:13 Morphine Sulf Inj 10 Mg/Ml Vial IVP 02/02/24 08:46 1 mg Q4HR PRN Administration PAIN SCALE 4-10(Mod-Sev Plan 43-year-old male with no significant past medical history who was admitted to the hospital by general surgery on 12/21/2023 for acute perforated appendicitis with multiple postop complications. #Acute kidney injury. #Suspected acute renal failure. Patient has no history of CKD. Patient has acutely worsening renal function: On 01/22 BUN 36, creatinine 1.3, eGFR greater than 60. 01/25 BUN 56, creatinine 3.5, eGFR 21. Patient has increased GI losses, wound VAC end ileostomy. Patient has very poor p.o. intake due to severe nausea and vomiting, unable to tolerate oral fluids. Patient receiving IVF. Nuclear medicine renal scan to assess renal function, potential need for dialysis. Patient to be started on TPN due to severe nausea/vomiting, poor p.o. intake. Nuclear medicine renal scan showed adequate renal blood flow, no renal function bilaterally. Consistent with ATN. Patient continues to produce good urine. Kidney function somewhat improved: BUN 85, creatinine 2.6, eGFR 21. Plan: -TPN, titrate down, transition to regular diet -Encourage oral hydration as tolerated. -Monitor/electrolytes as needed -Avoid nephrotoxic agents. -renally dose medications. -Will continue to monitor. -No plans for dialysis at this time #Sepsis likely secondary to acute perforated appendicitis #Acute perforated appendicitis #Small bowel perforation s/p ileostomy #Peritonitis #Subcapsular abscess s/p CT-guided drain placement #Subphrenic abscess, R #Sinus Tachycardia. #Hypertension. #Irritant contact dermatitis. #Normocytic normochromic anemia. #Acute hypoxic respiratory failure, resolved. #Pleural effusion, resolved. Management as per primary team. Diet: TPN, regular GI prophylaxis: protonix. DVT prophylaxis: heparin Code: Full code. Thank you for allow me to precipitate in the care of this patient. Plan of care discussed with attending Dr. Covarrubias. Kris Fuentes MD PGY-1 Attending Provider Attestation/Addendum Patient seen and examined with resident physician Dr. Fang. Note reviewed, agree with findings and recommendations Patient has good urine output. Starting to eat okay. Start tapering the TPN. Discharge planning per primary team. No need for dialysis. ATN slowly recovering.
--- NOTE | 2024-02-01 18:12 | PD.IMPROG ---
Documentation for date of: 02/01/24 Subjective Subjective Interval history: Tolerating p.o. diet Exam Vital Signs Temp Pulse Resp BP Pulse Ox O2 Del Method O2 Flow Rate 98.0 F 105 H 20 125/85 H 98 Room Air 0 02/01/24 16:00 02/01/24 16:00 02/01/24 16:00 02/01/24 16:00 02/01/24 16:00 02/01/24 16:00 02/01/24 13:26 FiO2 30 01/29/24 21:55 Objective Labs 02/01/24 05:40 02/01/24 05:40 Labs: Laboratory Results - last 24 hr 01/31/24 02/01/24 10:40 05:40 WBC 12.8 H RBC 2.59 L Hgb 7.3 L Hct 21.2 L* MCV 82 MCH 28.2 MCHC 34.4 RDW Std Deviation 42.9 Plt Count 414 Neut % (Auto) 66 Lymph % (Auto) 23 [place] % (Auto) 7 Eos % (Auto) 1 Baso % (Auto) 0 Neut # (Auto) 8.4 H Lymph # (Auto) 3.0 [place] # (Auto) 0.9 H Eos # (Auto) 0.2 Baso # (Auto) 0.0 Immature Gran # (Auto) 0.28 H Absolute Nucleated RBC 0.00 Immature Gran % 2 H Nucleated RBC % 0 Sodium 135 L Potassium 3.7 Chloride 103 Carbon Dioxide 21.8 Anion Gap 10 BUN 52 H Creatinine 2.0 H Estim Creat Clear Calc 46.5 L eGFR 42 L BUN/Creatinine Ratio 26 H Glucose 132 H Calculated Osmolality 286 Calcium 7.7 L Corrected Calcium 8.6 Phosphorus 3.5 Magnesium 1.9 Total Bilirubin 0.3 AST 22 ALT 10 Alkaline Phosphatase 104 Total Protein 6.0 Albumin 2.9 L Globulin 3.1 Albumin/Globulin Ratio 0.9 L Blood Type O Positive Antibody Screen POSITIVE Antibody Identification Anti-Jka Crossmatch See Detail Blood Bank Wristband ID Yes Impressions Impression: # Gastric motility disorder continue IV Reglan # Proximal esophageal stricture status post endoscopic dilatation # Gastritis Continue current management ABG Interpretation ABG results: 12/21/23 12/24/23 12/25/23 15:50 19:45 02:34 ABG pH 7.40 7.23 L D ABG pCO2 40 56 H D ABG pO2 134 H 229 H D ABG HCO3 25 24 ABG O2 Saturation 99 H 100 H ABG Base Excess 0 -5 L VBG pH 7.48 VBG pCO2 35 L VBG pO2 56 VBG Base Excess 2 12/25/23 12/25/23 12/26/23 04:54 10:48 06:56 ABG pH 7.25 L 7.33 L 7.34 L ABG pCO2 52 H 45 43 ABG pO2 93 D 99 95 ABG HCO3 23 23 23 ABG O2 Saturation 97 98 98 ABG Base Excess -5 L -3 -2 VBG pH VBG pCO2 VBG pO2 VBG Base Excess 12/26/23 01/05/24 01/06/24 10:15 08:13 13:50 ABG pH 7.36 7.37 7.42 ABG pCO2 41 38 30 L ABG pO2 87 75 L 90 ABG HCO3 23 22 19 L ABG O2 Saturation 98 96 98 ABG Base Excess -2 -3 -5 L VBG pH VBG pCO2 VBG pO2 VBG Base Excess 01/06/24 01/07/24 01/07/24 21:44 00:30 04:35 ABG pH 7.12 L* D 7.22 L D 7.27 L ABG pCO2 69 H D 52 H D 45 ABG pO2 261 H D 161 H D 209 H D ABG HCO3 22 21 21 ABG O2 Saturation 100 H 99 H 100 H ABG Base Excess -7 L -6 L -6 L VBG pH VBG pCO2 VBG pO2 VBG Base Excess 01/08/24 01/09/24 01/09/24 04:50 04:14 15:49 ABG pH 7.24 L 7.26 L 7.27 L ABG pCO2 47 50 H 51 H ABG pO2 97 D 97 90 ABG HCO3 20 22 23 ABG O2 Saturation 98 98 97 ABG Base Excess -7 L -5 L -4 L VBG pH VBG pCO2 VBG pO2 VBG Base Excess 01/10/24 01/11/24 01/12/24 04:52 04:35 05:24 ABG pH 7.33 L 7.34 L 7.31 L ABG pCO2 43 43 49 H ABG pO2 101 99 106 ABG HCO3 23 23 25 ABG O2 Saturation 98 98 98 ABG Base Excess -3 -3 -2 VBG pH VBG pCO2 VBG pO2 VBG Base Excess Assessment & Plan A&P Narrative # Dysphagia with inability to eat patient currently on TPN # Status post appendectomy with ruptured acute appendicitis Plan Fiberoptic esophagogastroduodenoscopy with possible biopsy possible therapeutic intervention under intravenous moderate sedation Informed consent obtained after discussion of risk benefits and alternatives and the procedure will be done today Thank you once again for the opportunity to participate in the care of this patient Time Spent With Patient Time: Total time spent is greater than 50% in coordination of care (as documented) at patient's floor/unit and/or counseling patient:
[2024-02-01] MEDS: ACETAMINOPHEN 325 MG TABLET 650 MG PO (19:20)
[2024-02-01] MEDS: CALCIUM GLUCONATE IV (19:21)
[2024-02-01] MEDS: [UNRECOGNIZED DRUG - OTHER] IV (19:21)
[2024-02-01] MEDS: POT CHL ADDITIVE IV (19:21)
[2024-02-01] MEDS: MIRTAZAPINE 15 MG TABLET PO (20:38)
[2024-02-01] MEDS: MORPHINE SULF INJ 10 MG/ML VIAL IVP (20:50)
[2024-02-02] VITALS (20 sets, daily range): BP systolic 117–140; BP diastolic 75–93; PULSE 87–112; RESP 14–26; TEMP 36.2–36.9; O2SAT 97–100
[2024-02-02] MEDS: METOCLOPRAMIDE INJ 5 MG/ML VIAL 2 ML 10 MG IVP ×3 (00:17→18:07)
[2024-02-02] MEDS: INSULIN LISPRO (AdmeLOG) 1 UNIT/0.01 ML UNIT SC ×2 (00:30→18:07)
[2024-02-02] MEDS: metroNIDAZOLE/NS 500 MG IVPB 500 MG/100 ML BAG 200 MG IV (05:23)
[2024-02-02 06:05] LABS: Basophils % (Auto) 0 % (0-2.5); Eosinophils # (Auto) 0.2 Thou/mm3 (0.0-0.5); Eosinophils % (Auto) 2 % (0-10); Hematocrit 28.4 % (41.0-53.0); Hemoglobin 9.4 g/dL (13.5-16.0); Immature Granulocytes % (Auto) 2 % (0-0); Lymphocytes # (Auto) 2.9 Thou/mm3 (1.0-4.8); Lymphocytes % (Auto) 23 % (10-50); Mean Corpuscular HGB Conc 33.1 g/dl (31.0-37.0); Mean Corpuscular Hemoglobin 27.2 pg (25.0-35.0); Mean Corpuscular Volume 82 fL (80-100); Monocytes # (Auto) 0.8 Thou/mm3 (0.0-0.8); Monocytes % (Auto) 6 % (0-12); Neutrophils # (Auto) 8.4 Thou/mm3 (1.8-7.7); Neutrophils % (Auto) 67 % (37-80); Nucleated Red Blood Cell % 0 /100 WBC (0); Platelet Count 363 Thou/mm3 (140-440); RDW Standard Deviation 47.4 fL (35.1-43.9); Red Blood Count 3.46 Miln/mm3 (4.50-5.90); White Blood Count 12.6 Thou/mm3 (3.8-10.6)
--- NOTE | 2024-02-02 06:11 | XR_ITS ---
Examination: CT abdomen and pelvis without contrast. Coronal 3-D reconstructions. Sagittal 2-D reconstructions. Date and time of exam:February 02, 2024 at 0831 hours Comparison January 26, 2024 INDICATIONS: Abdominal pain fever infections postop appendectomy, post placement drainage catheter in abscess in the right lower abdomen CTDI: vol (mGy): 7.86 DLP: (mGycm): 495 Technique: Axial images of the abdomen have been obtained, 3 mm slice thickness Intravenous contrast material has not been administered. Low dose protocols were performed. One or more of the following dose reduction techniques were used; automated exposure control, adjustment of the mA and/or KV according to patient size, use of iterative reconstruction technique. Findings: Atelectasis versus pneumonia at the lung bases with small bilateral pleural effusions The patient's subphrenic abscess is larger on this study, mediolateral dimension at least 3.5 cm No interval liver or splenic lesion The abscess collection below the liver is smaller with the drainage tube in satisfactory position No hydronephrosis No bowel obstruction Right ileostomy Urinary bladder intact IMPRESSION: The patient's subphrenic abscess is larger on this study, mediolateral dimension of the 3.5 cm The abscess collection below the liver smaller with a drainage tube in satisfactory position
[2024-02-02 06:28] LABS: Alanine Aminotransferase 10 U/L (10-49); Albumin/Globulin Ratio 0.9 (1.2-2.2); Alkaline Phosphatase 111 U/L (46-116); Anion Gap 9 (7-16); Aspartate Amino Transferase 17 U/L (0-34); BUN/Creatinine Ratio 22 Ratio (12-20); Bilirubin,Total 0.3 mg/dL (0.3-1.2); Blood Urea Nitrogen 40 mg/dL (9-23); Calcium 7.8 mg/dL (8.3-10.6); Calcium (Corrected) 8.6 mg/dL (8.5-10.1); Carbon Dioxide 22.2 mMol/L (20.0-31.0); Chloride 104 mMol/L (98-107); Creatinine (Component) 1.8 mg/dL (0.6-1.3); Estimated Creatinine Clearance 51.4 mL/min (>60); Globulin 3.3 gm/dL (2.3-3.5); Glucose 116 mg/dL (74-106); Magnesium 1.5 mg/dL (1.6-2.6); Osmolality,Calculated 280 (275-295); Phosphorous 4.1 mg/dL (2.4-5.1); Potassium 3.3 mMol/L (3.4-5.1); Sodium 135 mMol/L (136-145); Total Protein 6.3 gm/dL (5.7-8.2); eGFR 47 See Note
[2024-02-02] MEDS: Magnesium Sulfate 2 GM Ivpb 2 GM/50 ML BAG IV (08:54)
[2024-02-02] MEDS: LEVOFLOXACIN/D5W 250MG IVPB 250 MG/50 ML BAG 50 MG IV (08:54)
[2024-02-02] MEDS: POTASSIUM CHL 10 mEq IVPB 10 MEQ/100 ML BAG 100 MEQ IV ×2 (08:55→09:48)
--- NOTE | 2024-02-02 09:59 | XR_ITS ---
Examination: CT-guided percutaneous placement abscess drainage catheter right subphrenic abscess Reposition abscess drainage catheter right lower abdominal abscess CT abdomen without intravenous contrast Date and time of procedure: February 02, 2024 1220 hours INDICATIONS: Post appendectomy abscesses fever leukocytosis, enlarging subphrenic abscess on CT abdomen pelvis February 02, 2024 0831 hours Informed consent provided. A timeout was completed verifying correct patient, procedure, site and positioning. Technique: Axial 3 mm sections were obtained for localization of the right subphrenic and right lower abdominal abscesses Appropriate area is marked. The patient's site was prepped and draped in sterile fashion Maximal sterile barrier technique utilized, including hand hygiene Local anesthesia was obtained with 1% lidocaine. Low dose protocols were performed. One or more of the following dose reduction techniques were used; automated exposure control, adjustment of the mA and/or KV according to patient size, use of iterative reconstruction technique. Utilizing CT fluoroscopic guidance successful placement 5 [place] catheter in the right subphrenic abscess 0.35 wire guide then introduced through the catheter followed by dilators and an 8 [place] abscess drainage catheter in satisfactory position The patient's right lower abdomen abscess drainage catheter advanced also in satisfactory position under CT fluoroscopic guidance Impression: Successful CT-guided percutaneous placement abscess drainage catheter in the patient's right subphrenic abscess Successful repositioning of the patient's abscess drainage catheter in the right lower abdomen abscess
--- NOTE | 2024-02-02 10:17 | PD.IDPROG ---
Subjective Subjective Interval history: on tpn, doing better slowly, some family had wanted a transfer before , but they are not around. he has been here >1 mo now Exam Vital Signs Temp Pulse Resp BP Pulse Ox O2 Del Method O2 Flow Rate 98.4 F 107 H 18 128/87 H 98 Room Air 0 02/02/24 08:00 02/02/24 08:00 02/02/24 08:00 02/02/24 08:00 02/02/24 08:00 02/02/24 08:00 02/01/24 13:26 FiO2 30 01/29/24 21:55 Narrative Exam benign. rt neck cvl noted, rlq ostomy noted as well. voiding well, creat as noted. Objective - Internal Medicine Labs 02/02/24 05:12 02/02/24 05:12 Labs: Laboratory Results - last 24 hr 01/31/24 02/02/24 10:40 05:12 WBC 12.6 H RBC 3.46 L Hgb 9.4 L D Hct 28.4 L MCV 82 MCH 27.2 MCHC 33.1 RDW Std Deviation 47.4 H Plt Count 363 D Neut % (Auto) 67 Lymph % (Auto) 23 [place] % (Auto) 6 Eos % (Auto) 2 Baso % (Auto) 0 Neut # (Auto) 8.4 H Lymph # (Auto) 2.9 [place] # (Auto) 0.8 Eos # (Auto) 0.2 Baso # (Auto) 0.0 Immature Gran # (Auto) 0.30 H Absolute Nucleated RBC 0.00 Immature Gran % 2 H Nucleated RBC % 0 Sodium 135 L Potassium 3.3 L Chloride 104 Carbon Dioxide 22.2 Anion Gap 9 BUN 40 H Creatinine 1.8 H Estim Creat Clear Calc 51.4 L eGFR 47 L BUN/Creatinine Ratio 22 H Glucose 116 H Calculated Osmolality 280 Calcium 7.8 L Corrected Calcium 8.6 Phosphorus 4.1 Magnesium 1.5 L Total Bilirubin 0.3 AST 17 ALT 10 Alkaline Phosphatase 111 Total Protein 6.3 Albumin 3.0 L Globulin 3.3 Albumin/Globulin Ratio 0.9 L Blood Type O Positive Antibody Screen POSITIVE Antibody Identification Anti-Jka Crossmatch See Detail Blood Bank Wristband ID Yes ABG Interpretation ABG results: 12/21/23 12/24/23 12/25/23 15:50 19:45 02:34 ABG pH 7.40 7.23 L D ABG pCO2 40 56 H D ABG pO2 134 H 229 H D ABG HCO3 25 24 ABG O2 Saturation 99 H 100 H ABG Base Excess 0 -5 L VBG pH 7.48 VBG pCO2 35 L VBG pO2 56 VBG Base Excess 2 12/25/23 12/25/23 12/26/23 04:54 10:48 06:56 ABG pH 7.25 L 7.33 L 7.34 L ABG pCO2 52 H 45 43 ABG pO2 93 D 99 95 ABG HCO3 23 23 23 ABG O2 Saturation 97 98 98 ABG Base Excess -5 L -3 -2 VBG pH VBG pCO2 VBG pO2 VBG Base Excess 12/26/23 01/05/24 01/06/24 10:15 08:13 13:50 ABG pH 7.36 7.37 7.42 ABG pCO2 41 38 30 L ABG pO2 87 75 L 90 ABG HCO3 23 22 19 L ABG O2 Saturation 98 96 98 ABG Base Excess -2 -3 -5 L VBG pH VBG pCO2 VBG pO2 VBG Base Excess 01/06/24 01/07/24 01/07/24 21:44 00:30 04:35 ABG pH 7.12 L* D 7.22 L D 7.27 L ABG pCO2 69 H D 52 H D 45 ABG pO2 261 H D 161 H D 209 H D ABG HCO3 22 21 21 ABG O2 Saturation 100 H 99 H 100 H ABG Base Excess -7 L -6 L -6 L VBG pH VBG pCO2 VBG pO2 VBG Base Excess 01/08/24 01/09/24 01/09/24 04:50 04:14 15:49 ABG pH 7.24 L 7.26 L 7.27 L ABG pCO2 47 50 H 51 H ABG pO2 97 D 97 90 ABG HCO3 20 22 23 ABG O2 Saturation 98 98 97 ABG Base Excess -7 L -5 L -4 L VBG pH VBG pCO2 VBG pO2 VBG Base Excess 01/10/24 01/11/24 01/12/24 04:52 04:35 05:24 ABG pH 7.33 L 7.34 L 7.31 L ABG pCO2 43 43 49 H ABG pO2 101 99 106 ABG HCO3 23 23 25 ABG O2 Saturation 98 98 98 ABG Base Excess -3 -3 -2 VBG pH VBG pCO2 VBG pO2 VBG Base Excess Assessment & Plan A&P Narrative abd perforation at surgery about a month ago now delayed wound closure done 12/31/23 dm II. a1c not too bad ckd, with dany changed Friday to renally dosed levaquin/flagyl and stopped flagyl todayd. changed to po home when off tpn and when ready, duration of rx is anyone's guess as we have bombed past the usual rx for peritonitis with perforation. if nausea improves. home ok at discretion of surgery. f/u with surgery, no need for outpt ID f/u after release. Time Spent With Patient Time: Total time spent is greater than 50% in coordination of care (as documented) at patient's floor/unit and/or counseling patient:
--- NOTE | 2024-02-02 10:22 | ESPR_ITS ---
Progress Note Author: James Weiss MD Documentation for date of: 02/02/24 Subjective Subjective Brief History: Patient speaks only Citizen [place] and the history was obtained by daughters who are at the bedside. Patient was in his usual health until around 1:00 in the morning on Friday morning when she started he started experiencing pain over the lower abdomen. She had vomited once and she was brought to the emergency room. Patient had a normal bowel movement around 11:00 Friday night. Since then she has not passed gas or had any bowel movement. Patient was in severe pain which she described as 10 out of 10 and was given narcotics. Patient also was given some Solu-Medrol because x-ray reading suggesting enteritis. But the patient denies any history of chronic inflammatory disease or diarrhea or Crohn's disease or ulcerative colitis. This is the first episode of abdominal pain for this patient. She underwent colonoscopy for screening 1 year ago and it was normal. Her other medical problem consisted of possible hypertension and cholesterol. Past surgery none Narrative: The patient is feeling better today and is anxious to eat Exam Vital Signs Temp Pulse Resp BP Pulse Ox O2 Del Method O2 Flow Rate 98.4 F 104 H 16 141/70 H 95 Room Air 6 02/02/24 08:00 02/02/24 08:00 02/02/24 08:00 02/02/24 08:00 02/02/24 08:00 02/02/24 08:00 02/02/24 04:00 His vital signs are normal except mild tachycardia Results Results: Laboratory Laboratory Narrative: Laboratory workup shows improving renal functions but his WBC is around 12.5 which is normal for him Results: Imaging Imaging narrative: Patient had a CT scan this morning which showed a small subphrenic collection which is increased in size. Assessment & Plan Assessment Additional comments: Impression: Persistent subphrenic Plan Plan: We will arrange for another percutaneous drainage as directed by Dr. Caceres. Procedures Procedures Patient received 2 units of packed cells MTDD
--- NOTE | 2024-02-02 10:27 | ESPR_ITS ---
Documentation for date of: 02/02/24 Subjective Subjective Interval history: Mr. Morales is a 43-year-old gentleman with no past medical history presented to [facility] on 12/21/2023 with perforated appendicitis with free purulent material in abdomen, underwent laparoscopic appendectomy 12/21/[address]23. repeat CT A/P showed pneumoperitoneum,so he had exploratory laparotomy on 12/23 and was found to have small bowel perforation, washout was performed & subsequent diverting ileostomy and wound VAC. 12/28: CT-guided percutaneous drainage catheter placed for subphrenic abscess. 12/31 underwent secondary closure of abdominal incision. 01/06/24 patient was taken to the OR. Findings:Purulent material was seen which was whitish and not foul-smelling, sutures removed, irrigated the wound extensively with saline solution and left #19 round [place]We[place] on the right gutter, then the wound was closed with wound VAC leaving the fascia completely open. Patient tolerated the procedure well and left operating room in stable condition. Patient was in ICU for septic shock. Intubated and subsequently extubated. Transferred to medical floor. Has been receiving significant amount of antibiotics. Currently with ileostomy, VANESSA drain, open wound with wound VAC. Nephrology consultation requested for elevated BUN and creatinine. 01/25/2024 WBC 17.6, hemoglobin 7.4, platelets 392. Sodium 126, potassium 4.2, bicarbonate 18.7, BUN 40, creatinine 2.6, calcium 8.3, phosphorus 4.5, albumin 3.2 urinalysis shows 2+ protein 2+ blood with 72 RBCs and budding yeast. Abdominal CT on 01/21 showed subphrenic abscess. His current medications included amlodipine, metoprolol, Remeron, morphine as needed 01/25: Patient seen on the floors, resting in bed. Patient looks uncomfortable, ill-appearing. BUN 56, creatinine 3.5, eGFR 21. Patient complains of severe nausea and vomiting, unable to tolerate p.o. intake including liquids. Patient has Zofran on board as needed. 01/26: Patient seen and examined on the floors, resting in bed. Patient looks uncomfortable and ill-appearing. Patient complains of severe nausea and vomiting despite treatment with Zofran and Reglan. BUN 68, creatinine 4.6, eGFR 15. Plan to start patient on TPN, central line to be placed. Patient to go for nuclear medicine renal scan to assess for function, potential need for dialysis. Suspect ATN due to dehydration in setting of increased output and decreased p.o. intake. 1.4 L total output: 0.3 L stool output, 1.1 L urine output. 01/27: Patient seen and examined on floors, resting in bed. Patient comfortable, appears more awake than previous exams. Patient still notes severe nausea and vomiting, currently receiving TPN. Nuclear medicine renal scan pending. 1.4 L output: Drainage of milliliters stool, 900 mL urine. Hemoglobin 8.1. Sodium 129, potassium 3.7, bicarb 16.9, BUN 84, creatinine 4.6, EGFR 58. 01/28: Patient seen and examined on floors, resting in bed. Patient appears comfortable, alert, no specific complaints. Tolerating TPN well, has mild swelling of bilateral lower extremities, will decrease rate to 30 mL/h. Nuclear medicine renal scan showed adequate renal blood flow, no renal function bilaterally. Sodium 127, potassium 3.1 (40 mEq repleted), bicarb 17.9, BUN 85, creatinine 3.6, eGFR 21. Approximately 1 L urinary output. No plans for dialysis at this time. 01/29: Patient seen and examined on floors, resting in bed. Patient appears comfortable, alert, no specific complaints. Patient had EGD overnight, which showed gastroesophagitis and esophageal stenosis, treated with dilation. Patient has been placed on clear liquid diet, has been tolerating well, still receiving TPN. Encouraged oral hydration. Sodium 132, potassium 3.2, bicarb 20.5, BUN 83, creatinine 2.9, eGFR 27. 1.5 L urinary output. 01/30: Patient seen and examined on floors, resting bed. Patient appears comfortable, alert, complaining of decreased exercise tolerance. Explained importance of maintaining daily exercises and working physical therapy. Patient had episodes of coughing up blood, low hemoglobin (6.9), will receive blood transfusions as per primary team and surgery team. Maintain good oral hydration, approximately 2 L. Discussed titrating down TPN with primary team, patient will be transition to regular diet. Sodium 135, potassium 3.3, bicarb 22.1, BUN 70, creatinine 2.4, eGFR 33. 01/31: Patient seen and examined on floors, resting in bed. Patient appears comfortable, alert. Patient diet is being advanced, tolerating well, denies nausea/vomiting. Sodium 135, potassium 3.7, bicarb 21.8, BUN 32, creatinine 2.0, eGFR 42. 02/01: Patient seen and examined on floors, resting in bed. Patient comfortable and alert. Tolerating diet well. Sodium 135, potassium 3.3, Bicarb 22.2, BUN 40, creatinine 1.8, eGFR47. patient had CT A/P to eval abdominal abcess and potential drain removal. Exam Vital Signs Temp Pulse Resp BP Pulse Ox O2 Del Method O2 Flow Rate 98.4 F 107 H 18 128/87 H 98 Room Air 0 02/02/24 08:00 02/02/24 08:00 02/02/24 08:00 02/02/24 08:00 02/02/24 08:00 02/02/24 08:00 02/01/24 13:26 FiO2 30 01/29/24 21:55 Narrative Exam GENERAL APPEARANCE: Well-appearing gentleman currently seen in telemetry CARDIOVASCULAR: Heart regular, no murmurs, tachycardia LUNGS/CHEST: Chest clear to auscultation. No rales, rhonchi, wheezing ABDOMEN: S/p diversion ileostomy, wound VAC, VANESSA drain. Mild diffuse tenderness. EXTREMITIES: No clubbing or cyanosis. Trace edema bilateral lower extremities. SKIN: Skin exam normal without any rashes MUSCULOSKELETAL: In bed. Mild weakness, likely due to deconditioning. NEUROLOGICAL : No neurological deficits, alert and awake Objective Labs 02/02/24 05:12 02/02/24 05:12 Labs: Laboratory Results - last 24 hr 01/31/24 02/02/24 10:40 05:12 WBC 12.6 H RBC 3.46 L Hgb 9.4 L D Hct 28.4 L MCV 82 MCH 27.2 MCHC 33.1 RDW Std Deviation 47.4 H Plt Count 363 D Neut % (Auto) 67 Lymph % (Auto) 23 [place] % (Auto) 6 Eos % (Auto) 2 Baso % (Auto) 0 Neut # (Auto) 8.4 H Lymph # (Auto) 2.9 [place] # (Auto) 0.8 Eos # (Auto) 0.2 Baso # (Auto) 0.0 Immature Gran # (Auto) 0.30 H Absolute Nucleated RBC 0.00 Immature Gran % 2 H Nucleated RBC % 0 Sodium 135 L Potassium 3.3 L Chloride 104 Carbon Dioxide 22.2 Anion Gap 9 BUN 40 H Creatinine 1.8 H Estim Creat Clear Calc 51.4 L eGFR 47 L BUN/Creatinine Ratio 22 H Glucose 116 H Calculated Osmolality 280 Calcium 7.8 L Corrected Calcium 8.6 Phosphorus 4.1 Magnesium 1.5 L Total Bilirubin 0.3 AST 17 ALT 10 Alkaline Phosphatase 111 Total Protein 6.3 Albumin 3.0 L Globulin 3.3 Albumin/Globulin Ratio 0.9 L Blood Type O Positive Antibody Screen POSITIVE Antibody Identification Anti-Jka Crossmatch See Detail Blood Bank Wristband ID Yes ABG Interpretation ABG results: 12/21/23 12/24/23 12/25/23 15:50 19:45 02:34 ABG pH 7.40 7.23 L D ABG pCO2 40 56 H D ABG pO2 134 H 229 H D ABG HCO3 25 24 ABG O2 Saturation 99 H 100 H ABG Base Excess 0 -5 L VBG pH 7.48 VBG pCO2 35 L VBG pO2 56 VBG Base Excess 2 12/25/23 12/25/23 12/26/23 04:54 10:48 06:56 ABG pH 7.25 L 7.33 L 7.34 L ABG pCO2 52 H 45 43 ABG pO2 93 D 99 95 ABG HCO3 23 23 23 ABG O2 Saturation 97 98 98 ABG Base Excess -5 L -3 -2 VBG pH VBG pCO2 VBG pO2 VBG Base Excess 12/26/23 01/05/24 01/06/24 10:15 08:13 13:50 ABG pH 7.36 7.37 7.42 ABG pCO2 41 38 30 L ABG pO2 87 75 L 90 ABG HCO3 23 22 19 L ABG O2 Saturation 98 96 98 ABG Base Excess -2 -3 -5 L VBG pH VBG pCO2 VBG pO2 VBG Base Excess 01/06/24 01/07/24 01/07/24 21:44 00:30 04:35 ABG pH 7.12 L* D 7.22 L D 7.27 L ABG pCO2 69 H D 52 H D 45 ABG pO2 261 H D 161 H D 209 H D ABG HCO3 22 21 21 ABG O2 Saturation 100 H 99 H 100 H ABG Base Excess -7 L -6 L -6 L VBG pH VBG pCO2 VBG pO2 VBG Base Excess 01/08/24 01/09/24 01/09/24 04:50 04:14 15:49 ABG pH 7.24 L 7.26 L 7.27 L ABG pCO2 47 50 H 51 H ABG pO2 97 D 97 90 ABG HCO3 20 22 23 ABG O2 Saturation 98 98 97 ABG Base Excess -7 L -5 L -4 L VBG pH VBG pCO2 VBG pO2 VBG Base Excess 01/10/24 01/11/24 01/12/24 04:52 04:35 05:24 ABG pH 7.33 L 7.34 L 7.31 L ABG pCO2 43 43 49 H ABG pO2 101 99 106 ABG HCO3 23 23 25 ABG O2 Saturation 98 98 98 ABG Base Excess -3 -3 -2 VBG pH VBG pCO2 VBG pO2 VBG Base Excess Quality Measures Quality Measures VTE prophylaxis (heparin subcutaneously) Assessment & Plan Assessment Current Active Medications: Generic Name Dose Route Start Last Admin Trade Name Freq PRN Reason Stop Dose Admin Acetaminophen 650 mg 01/24/24 23:23 02/01/24 19:20 Acetaminophen 325 Mg Tablet PO 02/21/24 20:48 650 mg Q6HR PRN Administration Pain Scale 1-3 or Fever >100.3 Amlodipine Besylate 10 mg 01/13/24 12:30 01/25/24 09:00 Amlodipine Besylate 5 Mg Tablet PO 02/12/24 12:29 10 mg QDAY TAL Administration Citric Acid/Sodium Citrate 30 ml 01/26/24 09:00 02/01/24 20:38 Citric Acid/Sodium Citr 15 Ml Udc (Bicitra) PO 02/25/24 08:59 30 ml BID TAL Administration Dextrose 25 ml 01/04/24 14:37 Dextrose 50%-Water Inj 50 Ml Syringe IV 02/03/24 14:36 Q15MIN PRN BG 50-70 responsive npo pt Dextrose 50 ml 01/04/24 14:37 Dextrose 50%-Water Inj 50 Ml Syringe IV 02/03/24 14:36 Q15MIN PRN BG <50 OR BG <70 & pt unresponsive Glucagon 1 mg 01/07/24 11:34 Glucagon Inj 1 Mg Vial IM Q15MIN PRN BG <70, and no IV access Levofloxacin/Dextrose 250 mg in 50 mls @ 50 mls/hr 01/26/24 11:30 02/02/24 08:54 Levaquin Ivpb IV 02/02/24 11:29 50 mls/hr QDAY TAL Administration Fat Emulsion-[place]omk[place] Oil/Soybean Oil 500 mls @ 32 mls/hr 01/28/24 18:00 01/29/24 19:01 Clinopid 20% Iv IV 02/27/24 17:59 Infused We@1800 TAL Infusion Multivitamins/Minerals 10 ml/ 1,042 mls @ 70 mls/hr 02/01/24 20:14 02/01/24 19:21 Calcium Gluconate 1 gm/ IV 02/02/24 11:07 70 mls/hr Potassium Chloride 20 meq/ QDAY ONE Administration Magnesium Sulfate 1 gm/ Sodium Acetate 20 meq/ Amino Acids Insulin Glargine 10 unit 01/04/24 14:45 02/02/24 09:48 Insulin Glargine (Lantus) 5 Unit/0.05 Ml (Per 5 Units) SC 02/03/24 14:44 Not Given QDAY [facility] Insulin Human Lispro 0 unit 01/28/24 00:00 02/02/24 05:25 Insulin Lispro (Admelog) 1 Unit/0.01 Ml Unit SC 02/27/24 00:00 Not Given Q6HR [facility] Protocol Labetalol HCl 10 mg 01/05/24 19:16 01/13/24 13:24 Labetalol Inj 5 Mg/Ml Vial 20 Ml IVP 02/04/24 19:29 10 mg Q6H PRN Administration SBP >170, DBP>110 Levofloxacin 250 mg 02/03/24 09:00 Levofloxacin 250 Mg Tablet PO 02/10/24 08:59 QDAY TAL Metoclopramide HCl 10 mg 01/29/24 20:54 02/02/24 05:23 Metoclopramide Inj 5 Mg/Ml Vial 2 Ml IVP 02/28/24 20:53 10 mg Q6HR TAL Administration Protocol Metoprolol Succinate 50 mg 01/26/24 09:00 02/01/24 09:45 Metoprolol Succinate Xl 25 Mg Tabcr PO 02/25/24 08:59 50 mg QDAY TAL Administration Mirtazapine 15 mg 01/23/24 21:00 02/01/24 20:38 Mirtazapine 15 Mg Tablet PO 02/22/24 20:59 15 mg HS TAL Administration Plan 43-year-old male with no significant past medical history who was admitted to the hospital by general surgery on 12/21/2023 for acute perforated appendicitis with multiple postop complications. #Acute kidney injury. #Suspected acute renal failure. Patient has no history of CKD. Patient has acutely worsening renal function: On 01/22 BUN 36, creatinine 1.3, eGFR greater than 60. 01/25 BUN 56, creatinine 3.5, eGFR 21. Patient has increased GI losses, wound VAC end ileostomy. Patient has very poor p.o. intake due to severe nausea and vomiting, unable to tolerate oral fluids. Patient receiving IVF. Nuclear medicine renal scan to assess renal function, potential need for dialysis. Patient to be started on TPN due to severe nausea/vomiting, poor p.o. intake. Nuclear medicine renal scan showed adequate renal blood flow, no renal function bilaterally. Consistent with ATN. Patient continues to produce good urine. Kidney function somewhat improved: BUN 85, creatinine 2.6, eGFR 21. Plan: -TPN, titrate down, transition to regular diet -Encourage oral hydration as tolerated. -Monitor/electrolytes as needed -Avoid nephrotoxic agents. -renally dose medications. -Will continue to monitor. -No plans for dialysis at this time #Sepsis likely secondary to acute perforated appendicitis #Acute perforated appendicitis #Small bowel perforation s/p ileostomy #Peritonitis #Subcapsular abscess s/p CT-guided drain placement #Subphrenic abscess, R #Sinus Tachycardia. #Hypertension. #Irritant contact dermatitis. #Normocytic normochromic anemia. #Acute hypoxic respiratory failure, resolved. #Pleural effusion, resolved. Management as per primary team. Diet: TPN, regular GI prophylaxis: protonix. DVT prophylaxis: heparin Code: Full code. Thank you for allow me to precipitate in the care of this patient. Plan of care discussed with attending Dr. Covarrubias. Kris Fuentes MD PGY-1 Attending Provider Attestation/Addendum Patient seen and examined with resident physician Dr. Fuentes. Note reviewed, agree with findings and recommendations. Patient improving renal standpoint. Continue with slow weaning off on the TPN. Renal will sign off.
[2024-02-02 10:52] LABS: INR 1.1 (0.9-1.3); Partial Thromboplastin Time 30.9 Seconds (22.0-36.0); Prothrombin Time 12.4 Seconds (9.0-12.2)
[2024-02-02] MEDS: fentaNYL CIT INJ 50 mCg/ML AMP 2ML 100 MCG IVP (12:42)
[2024-02-02] MEDS: LIDOCAINE INJ PF 1% 30 ML VIAL 5 ML INFL (12:50)
--- NOTE | 2024-02-02 13:10 | ESPR_ITS ---
<Statement entered by Cr Carey MD - 02/02/24 14:40> Senior Resident Attestation: I supervised/discussed management plan with internal medicine nurse practitioner physician Dr. Goncalves, and was involved in the care of this patient. I personally saw and examined the patient and discussed the assessment and plan with the entire medicine team, including my attending. I agree with the assessment and plan as documented. Patient was seen and examined at bedside. No acute overnight events. His oral intake remains good, patient underwent additional drain placement today for pelvic abscesses. Will continue current management and monitor patient. Patient's care was discussed with attending physician, Dr. Padilla. Cr Carey MD PGY-2. Documentation for date of: 02/02/24 Subjective Subjective Interval history: Patient seen at bedside after he got an IR guided drain placed today. He states that he is feeling better and is actually looking forward to eating today as he was n.p.o. all day. No other complaints at this time. Exam Vital Signs Temp Pulse Resp BP Pulse Ox O2 Del Method O2 Flow Rate 98.2 F 104 H 16 127/90 H 98 Room Air 0 02/02/24 11:05 02/02/24 11:45 02/02/24 11:45 02/02/24 11:45 02/02/24 11:45 02/02/24 11:45 02/01/24 13:26 FiO2 30 01/29/24 21:55 Narrative Exam General: A/O x3,in better spirits Eyes: PERRL, EOMI. Anicteric, vision grossly intact. Ears: No ear pain, no ear discharge, Hearing grossly intact. Nose: No nasal discharge. Mouth/Throat: Dry mucous membranes, no redness, no lesions. Neck: Neck supple, non-tender, no cervical lymphadenopathy. Lungs: Clear KYA to auscultation and percussion, No accessory muscle use. Cardio: Normal S1/S2, regular rhythm, no murmurs, no JVD Abdomen: Soft, Wound VAC in place with clean margins and healthy granulation tissue, no tenderness, no palpable masses, peristalsis present, no guarding or rebound. two pleural drainages in place and draining well. Extremities: Symmetrical, no significant deformities, no peripheral edema , non-tender, peripheral pulses presents. Skin: no lesions, warm to touch. Neuro: No focal neurological deficits. motor and sensory intact Psych: Cooperative, appropriate mood and effect. Objective Labs 02/02/24 05:12 02/02/24 05:12 Labs: Laboratory Results - last 24 hr 01/31/24 02/02/24 10:40 05:12 WBC 12.6 H RBC 3.46 L Hgb 9.4 L D Hct 28.4 L MCV 82 MCH 27.2 MCHC 33.1 RDW Std Deviation 47.4 H Plt Count 363 D Neut % (Auto) 67 Lymph % (Auto) 23 [place] % (Auto) 6 Eos % (Auto) 2 Baso % (Auto) 0 Neut # (Auto) 8.4 H Lymph # (Auto) 2.9 [place] # (Auto) 0.8 Eos # (Auto) 0.2 Baso # (Auto) 0.0 Immature Gran # (Auto) 0.30 H Absolute Nucleated RBC 0.00 Immature Gran % 2 H Nucleated RBC % 0 PT 12.4 H INR 1.1 APTT 30.9 Sodium 135 L Potassium 3.3 L Chloride 104 Carbon Dioxide 22.2 Anion Gap 9 BUN 40 H Creatinine 1.8 H Estim Creat Clear Calc 51.4 L eGFR 47 L BUN/Creatinine Ratio 22 H Glucose 116 H Calculated Osmolality 280 Calcium 7.8 L Corrected Calcium 8.6 Phosphorus 4.1 Magnesium 1.5 L Total Bilirubin 0.3 AST 17 ALT 10 Alkaline Phosphatase 111 Total Protein 6.3 Albumin 3.0 L Globulin 3.3 Albumin/Globulin Ratio 0.9 L Crossmatch See Detail ABG Interpretation ABG results: 12/21/23 12/24/23 12/25/23 15:50 19:45 02:34 ABG pH 7.40 7.23 L D ABG pCO2 40 56 H D ABG pO2 134 H 229 H D ABG HCO3 25 24 ABG O2 Saturation 99 H 100 H ABG Base Excess 0 -5 L VBG pH 7.48 VBG pCO2 35 L VBG pO2 56 VBG Base Excess 2 12/25/23 12/25/23 12/26/23 04:54 10:48 06:56 ABG pH 7.25 L 7.33 L 7.34 L ABG pCO2 52 H 45 43 ABG pO2 93 D 99 95 ABG HCO3 23 23 23 ABG O2 Saturation 97 98 98 ABG Base Excess -5 L -3 -2 VBG pH VBG pCO2 VBG pO2 VBG Base Excess 12/26/23 01/05/24 01/06/24 10:15 08:13 13:50 ABG pH 7.36 7.37 7.42 ABG pCO2 41 38 30 L ABG pO2 87 75 L 90 ABG HCO3 23 22 19 L ABG O2 Saturation 98 96 98 ABG Base Excess -2 -3 -5 L VBG pH VBG pCO2 VBG pO2 VBG Base Excess 01/06/24 01/07/24 01/07/24 21:44 00:30 04:35 ABG pH 7.12 L* D 7.22 L D 7.27 L ABG pCO2 69 H D 52 H D 45 ABG pO2 261 H D 161 H D 209 H D ABG HCO3 22 21 21 ABG O2 Saturation 100 H 99 H 100 H ABG Base Excess -7 L -6 L -6 L VBG pH VBG pCO2 VBG pO2 VBG Base Excess 01/08/24 01/09/24 01/09/24 04:50 04:14 15:49 ABG pH 7.24 L 7.26 L 7.27 L ABG pCO2 47 50 H 51 H ABG pO2 97 D 97 90 ABG HCO3 20 22 23 ABG O2 Saturation 98 98 97 ABG Base Excess -7 L -5 L -4 L VBG pH VBG pCO2 VBG pO2 VBG Base Excess 01/10/24 01/11/24 01/12/24 04:52 04:35 05:24 ABG pH 7.33 L 7.34 L 7.31 L ABG pCO2 43 43 49 H ABG pO2 101 99 106 ABG HCO3 23 23 25 ABG O2 Saturation 98 98 98 ABG Base Excess -3 -3 -2 VBG pH VBG pCO2 VBG pO2 VBG Base Excess Quality Measures Quality Measures VTE prophylaxis (heparin subcutaneously) Assessment & Plan Assessment Current Active Medications: Generic Name Dose Route Start Last Admin Trade Name Freq PRN Reason Stop Dose Admin Acetaminophen 650 mg 01/24/24 23:23 02/01/24 19:20 Acetaminophen 325 Mg Tablet PO 02/21/24 20:48 650 mg Q6HR PRN Administration Pain Scale 1-3 or Fever >100.3 Amlodipine Besylate 10 mg 01/13/24 12:30 01/25/24 09:00 Amlodipine Besylate 5 Mg Tablet PO 02/12/24 12:29 10 mg QDAY TAL Administration Citric Acid/Sodium Citrate 30 ml 01/26/24 09:00 02/01/24 20:38 Citric Acid/Sodium Citr 15 Ml Udc (Bicitra) PO 02/25/24 08:59 30 ml BID TAL Administration Dextrose 25 ml 01/04/24 14:37 Dextrose 50%-Water Inj 50 Ml Syringe IV 02/03/24 14:36 Q15MIN PRN BG 50-70 responsive npo pt Dextrose 50 ml 01/04/24 14:37 Dextrose 50%-Water Inj 50 Ml Syringe IV 02/03/24 14:36 Q15MIN PRN BG <50 OR BG <70 & pt unresponsive Glucagon 1 mg 01/07/24 11:34 Glucagon Inj 1 Mg Vial IM Q15MIN PRN BG <70, and no IV access Fat Emulsion-[place] Oil/Soybean Oil 500 mls @ 32 mls/hr 01/28/24 18:00 01/29/24 19:01 Clinopid 20% Iv IV 02/27/24 17:59 Infused We@1800 TAL Infusion Calcium Gluconate 2 gm/ 1,044 mls @ 70 mls/hr 02/02/24 11:00 Potassium Acetate 40 meq/ IV 02/03/24 01:54 Magnesium Sulfate 2 gm/ Amino QDAY ONE Acids Calcium Gluconate 1 gm/ 1,012 mls @ 70 mls/hr 02/03/24 01:55 Magnesium Sulfate 1 gm/ Amino IV 02/03/24 16:22 Acids X1 ONE Insulin Glargine 10 unit 01/04/24 14:45 02/02/24 09:48 Insulin Glargine (Lantus) 5 Unit/0.05 Ml (Per 5 Units) SC 02/03/24 14:44 Not Given QDAY [facility] Insulin Human Lispro 0 unit 01/28/24 00:00 02/02/24 05:25 Insulin Lispro (Admelog) 1 Unit/0.01 Ml Unit SC 02/27/24 00:00 Not Given Q6HR [facility] Protocol Labetalol HCl 10 mg 01/05/24 19:16 01/13/24 13:24 Labetalol Inj 5 Mg/Ml Vial 20 Ml IVP 02/04/24 19:29 10 mg Q6H PRN Administration SBP >170, DBP>110 Levofloxacin 250 mg 02/03/24 09:00 Levofloxacin 250 Mg Tablet PO 02/10/24 08:59 QDAY TAL Metoclopramide HCl 10 mg 01/29/24 20:54 02/02/24 05:23 Metoclopramide Inj 5 Mg/Ml Vial 2 Ml IVP 02/28/24 20:53 10 mg Q6HR TAL Administration Protocol Metoprolol Succinate 50 mg 01/26/24 09:00 02/01/24 09:45 Metoprolol Succinate Xl 25 Mg Tabcr PO 02/25/24 08:59 50 mg QDAY TAL Administration Mirtazapine 15 mg 01/23/24 21:00 02/01/24 20:38 Mirtazapine 15 Mg Tablet PO 02/22/24 20:59 15 mg HS TAL Administration Plan 43-year-old male with no significant past medical history who was admitted to the hospital by general surgery on 12/21/2023 for acute perforated appendicitis with multiple postop complications. #Sepsis likely secondary to acute perforated appendicitis #Acute perforated appendicitis #Small bowel perforation s/p ileostomy #Peritonitis #Subcapsular abscess s/p CT-guided drain placement #Subphrenic abscess, R ?Initially patient met SIRS 2 out of 4 with leukocytosis and tachycardia ?Patient underwent multiple surgical procedures including laparoscopic appendectomy on day of admission (12/21/2023), 2 ex laps (12/25/2023 and 01/06/2024), and additional secondary closure of abdomen incision (01/01/2024). ?Multiple blood cultures, urine cultures, sputum cultures, and abdominal wound cultures have come back negative ?Abdomen/pelvis CT on 01/12/2024 showed localized fluid collection on the right lower abdomen consistent with an abscess ?Patient had percutaneous drainage catheter taken out by IR as per general surgeon ?Patient has not been having good oral intake therefore TPN will be continued as per general surgeon -DC'd vancomycin (day 9) and Zosyn (day 8 of second treatment) -WBC 12.6 (downtrended) and still tachycardic -CT abdomen/pelvis (01/18/24) showed Right subphrenic abscess which is very small in thickness, 13 mm and abscess below the liver measures 8.4 x 11.5 x 3.8 cm -IR placed pleural drainage again on 01/20/2024 and additional drainage today [02/02/2024-] -DC'd meropenem [01/18/2024-01/26/2024] -DC'd Flagyl [01/26/24-02/02/2024] Plan: -Continue TPN as per Dr. Rubio, titrate down as patient is having PO intake. ?Recommend to encourage oral intake and advance diet as tolerated. -Recommend to follow ID recommendations on Antibiotic regimen levaquin [01/26/24-] -Recommend flushing pleural drainage. ?Recommend wound care. ?Will continue to monitor for any spiking any fever or elevated WBC. #ANITHA #Likely ATN #NAGMA ?Creatinine improving to 1.8 today -Likely ATN given multiple CT w contrast -Nephrology ordered nuclear medicine renal scan showed no renal function., as per nephrology this is likely ATN and patient will not need HD for now. Plan: -Recommend encourage oral hydration -Recommend to continue Bicitra as per nephrology ?Avoid nephrotoxic agents. ?Renally dose medications. -Nephrology consulted, appreciate recommendations ?Will continue to monitor. #Sinus Tachycardia #Hypertension. -Possibly related pain from recent surgeries, less likely infectious -EKGs in december 2023 reveal sinus tachycardia -Discontinued amlodipine. Plan: -Continue metoprolol succinate to 50 mg daily. #Irritant contact dermatitis. -Patient developed an inner thigh rash most likely due to friction Plan: -Will continue to monitor #Normocytic normochromic anemia. ?Hgb 9.4 ?Most likely a component of some blood loss given multiple surgical procedures and hemodilution Plan: ?Recommend to transfuse if hemoglobin less than 7 ?Will continue to monitor #Hypokalemia, resolved #Hypomagnesemia #Hyponatremia #hypocalcemia #Hyperphosphatemia -Potassium 3.3, sodium 135, Mg 1.5, phos 4.1, Calcium 7.8 Plan: -Recommend to replete as necessary -Will continue to monitor #Acute hypoxic respiratory failure, resolved. #Pleural effusion, resolved. ?Patient was intubated in the ICU and was successfully extubated on 01/12/2024 ?Chest x-ray on 01/12/2024 showed no pneumonia and no right pleural fluid ?Patient had chest tube taken out by general surgeon -Will assess possibility to take chest tube out ?Checks x-ray 01/15/24 showed no pleural fluid Plan: ?Will continue to monitor Thank you for allowing us to be part of the patient's care. Disposition: Patient seen in telemetry, monitoring ADIS's, pain management, and oral intake. Diet:Regular GI prophylaxis: protonix. DVT prophylaxis: heparin sc. Code: Full code. Nutritional: TPN Case disclosed with Attending Dr. aPdilla and My senior Dr. Carey PGY2 Cortez Harp PGY1 Attending Provider Attestation/Addendum ISusannah, , attest that I was physically present for the augustine portions of the service and evaluated the patient with the resident and I reviewed and discussed the case with the resident and agree with the resident's findings and plans of care as documented above Patient seen and evaluated this afternoon after patient received a new drain placed in subphrenic abscess found on repeat CT scan. Previous catheter was readjusted and now draining copious purulent fluid. Patient reports mild pain in the region of catheter. He denies any shortness of breath or chest pain otherwise. He has been tolerating oral intake well. No acute events overnight otherwise. Will continue to monitor drainage of abscesses. Case was also discussed with surgeon.
--- NOTE | 2024-02-02 13:57 | PC.SS ---
SS contacted [facility] and spoke to Kimberlee. Chair time was provided for Tuesdays and Saturdays from 10:45-1:45PM. Patient will start tomorrow and will need to arrive at 9:15AM. SS will meet with patient to provide chair time.
[2024-02-02] MEDS: POTASSIUM ACET IV (14:10)
[2024-02-02] MEDS: [UNRECOGNIZED DRUG - OTHER] IV (14:10)
[2024-02-02] MEDS: CALCIUM GLUCONATE IV (14:10)
[2024-02-02] MEDS: METOPROLOL SUCCINATE XL 25 MG TABCR 50 MG PO (14:17)
--- NOTE | 2024-02-02 14:36 | PC.NURSE ---
1313 patient is awake, alert, breathing unlabored, s/p abscess drain placement to right upper abdomen, drain connected to accordian drainage bag and drained about 30ml output. Report given to Alena TURCIOS, patient transferred back to room 274 with tele box and TPN ongoing throught central line.
[2024-02-02] MEDS: ACETAMINOPHEN 325 MG TABLET 650 MG PO ×2 (15:26→21:30)
--- NOTE | 2024-02-02 19:47 | PD.IMPROG ---
Documentation for date of: 02/02/24 Subjective Subjective Interval history: Diet advance as tolerated Exam Vital Signs Temp Pulse Resp BP Pulse Ox O2 Del Method O2 Flow Rate 98.1 F 112 H 26 H 131/90 H 98 Room Air 3 02/02/24 17:00 02/02/24 17:00 02/02/24 17:00 02/02/24 17:00 02/02/24 17:00 02/02/24 17:00 02/02/24 13:05 FiO2 30 01/29/24 21:55 Objective Labs 02/02/24 05:12 02/02/24 05:12 Labs: Laboratory Results - last 24 hr 02/02/24 05:12 WBC 12.6 H RBC 3.46 L Hgb 9.4 L D Hct 28.4 L MCV 82 MCH 27.2 MCHC 33.1 RDW Std Deviation 47.4 H Plt Count 363 D Neut % (Auto) 67 Lymph % (Auto) 23 [place] % (Auto) 6 Eos % (Auto) 2 Baso % (Auto) 0 Neut # (Auto) 8.4 H Lymph # (Auto) 2.9 [place] # (Auto) 0.8 Eos # (Auto) 0.2 Baso # (Auto) 0.0 Immature Gran # (Auto) 0.30 H Absolute Nucleated RBC 0.00 Immature Gran % 2 H Nucleated RBC % 0 PT 12.4 H INR 1.1 APTT 30.9 Sodium 135 L Potassium 3.3 L Chloride 104 Carbon Dioxide 22.2 Anion Gap 9 BUN 40 H Creatinine 1.8 H Estim Creat Clear Calc 51.4 L eGFR 47 L BUN/Creatinine Ratio 22 H Glucose 116 H Calculated Osmolality 280 Calcium 7.8 L Corrected Calcium 8.6 Phosphorus 4.1 Magnesium 1.5 L Total Bilirubin 0.3 AST 17 ALT 10 Alkaline Phosphatase 111 Total Protein 6.3 Albumin 3.0 L Globulin 3.3 Albumin/Globulin Ratio 0.9 L Impressions Impression: # Gastric motility disorder Continue Reglan ABG Interpretation ABG results: 12/21/23 12/24/23 12/25/23 15:50 19:45 02:34 ABG pH 7.40 7.23 L D ABG pCO2 40 56 H D ABG pO2 134 H 229 H D ABG HCO3 25 24 ABG O2 Saturation 99 H 100 H ABG Base Excess 0 -5 L VBG pH 7.48 VBG pCO2 35 L VBG pO2 56 VBG Base Excess 2 12/25/23 12/25/23 12/26/23 04:54 10:48 06:56 ABG pH 7.25 L 7.33 L 7.34 L ABG pCO2 52 H 45 43 ABG pO2 93 D 99 95 ABG HCO3 23 23 23 ABG O2 Saturation 97 98 98 ABG Base Excess -5 L -3 -2 VBG pH VBG pCO2 VBG pO2 VBG Base Excess 12/26/23 01/05/24 01/06/24 10:15 08:13 13:50 ABG pH 7.36 7.37 7.42 ABG pCO2 41 38 30 L ABG pO2 87 75 L 90 ABG HCO3 23 22 19 L ABG O2 Saturation 98 96 98 ABG Base Excess -2 -3 -5 L VBG pH VBG pCO2 VBG pO2 VBG Base Excess 01/06/24 01/07/24 01/07/24 21:44 00:30 04:35 ABG pH 7.12 L* D 7.22 L D 7.27 L ABG pCO2 69 H D 52 H D 45 ABG pO2 261 H D 161 H D 209 H D ABG HCO3 22 21 21 ABG O2 Saturation 100 H 99 H 100 H ABG Base Excess -7 L -6 L -6 L VBG pH VBG pCO2 VBG pO2 VBG Base Excess 01/08/24 01/09/24 01/09/24 04:50 04:14 15:49 ABG pH 7.24 L 7.26 L 7.27 L ABG pCO2 47 50 H 51 H ABG pO2 97 D 97 90 ABG HCO3 20 22 23 ABG O2 Saturation 98 98 97 ABG Base Excess -7 L -5 L -4 L VBG pH VBG pCO2 VBG pO2 VBG Base Excess 01/10/24 01/11/24 01/12/24 04:52 04:35 05:24 ABG pH 7.33 L 7.34 L 7.31 L ABG pCO2 43 43 49 H ABG pO2 101 99 106 ABG HCO3 23 23 25 ABG O2 Saturation 98 98 98 ABG Base Excess -3 -3 -2 VBG pH VBG pCO2 VBG pO2 VBG Base Excess Assessment & Plan A&P Narrative abd perforation at surgery about a month ago now delayed wound closure done 12/31/23 dm II. a1c not too bad ckd, with dany changed Friday to renally dosed levaquin/flagyl and stopped flagyl todayd. changed to po home when off tpn and when ready, duration of rx is anyone's guess as we have bombed past the usual rx for peritonitis with perforation. if nausea improves. home ok at discretion of surgery. f/u with surgery, no need for outpt ID f/u after release. Time Spent With Patient Time: Total time spent is greater than 50% in coordination of care (as documented) at patient's floor/unit and/or counseling patient:
[2024-02-02] MEDS: MIRTAZAPINE 15 MG TABLET PO (21:24)
[2024-02-02] MEDS: CITRIC ACID/SODIUM CITR 15 ML UDC (BICITRA) 30 ML PO (21:25)
[2024-02-03] VITALS (11 sets, daily range): BP systolic 127–138; BP diastolic 83–99; PULSE 104–126; RESP 15–25; TEMP 36.6–37; O2SAT 97–98; BMI 32.8
[2024-02-03] MEDS: METOCLOPRAMIDE INJ 5 MG/ML VIAL 2 ML 10 MG IVP ×4 (00:14→17:15)
[2024-02-03] MEDS: INSULIN LISPRO (AdmeLOG) 1 UNIT/0.01 ML UNIT SC ×4 (00:17→17:16)
[2024-02-03] MEDS: MAGNESIUM SULF IV (02:45)
[2024-02-03] MEDS: [UNRECOGNIZED DRUG - OTHER] IV (02:45)
[2024-02-03] MEDS: CALCIUM GLUCONATE IV ×2 (02:45→17:16)
[2024-02-03] MEDS: CITRIC ACID/SODIUM CITR 15 ML UDC (BICITRA) 30 ML PO ×2 (08:33→20:32)
[2024-02-03] MEDS: INSULIN GLARGINE (Lantus) 5 UNIT/0.05 ML (PER 5 UNITS) 10 UNIT SC (08:33)
[2024-02-03] MEDS: METOPROLOL SUCCINATE XL 25 MG TABCR 50 MG PO (08:33)
[2024-02-03] MEDS: LEVOFLOXACIN 250 MG TABLET PO (08:34)
--- NOTE | 2024-02-03 09:18 | ESPR_ITS ---
<Statement entered by Cr Carey MD - 02/03/24 17:27> Senior Resident Attestation: I supervised/discussed management plan with senior insight manager international physician Dr. Goncalves, and was involved in the care of this patient. I personally saw and examined the patient and discussed the assessment and plan with the entire medicine team, including my attending. I agree with the assessment and plan as documented. Patient was seen and examined at the bedside. No overnight events. His PO intake remains good, no nausea or vomiting. Minimal abdominal pain reported. He has good output from both pelvic drains. Patient's care was discussed with attending physician, Dr. Padilla. Cr Carey MD PGY-2. Documentation for date of: 02/03/24 Subjective Subjective Interval history: Patient was seen at bedside this morning. No overnight events. Patient has been tolerating oral intake adequately and he states that he has been eating more since the esophageal dilation. There were no labs this morning, recommend labs every other day. No other complaints at this time. Exam Vital Signs Temp Pulse Resp BP Pulse Ox O2 Del Method O2 Flow Rate 98.3 F 120 H 18 133/90 H 98 Room Air 3 02/03/24 08:00 02/03/24 08:33 02/03/24 08:00 02/03/24 08:33 02/03/24 08:00 02/03/24 08:00 02/02/24 13:05 FiO2 30 01/29/24 21:55 Narrative Exam General: A/O x3, no acute distress, resting in bed Eyes: PERRL, EOMI. Anicteric, vision grossly intact. Ears: No ear pain, no ear discharge, Hearing grossly intact. Nose: No nasal discharge. Mouth/Throat: Dry mucous membranes, no redness, no lesions. Neck: Neck supple, non-tender, no cervical lymphadenopathy. Lungs: Clear KYA to auscultation and percussion, No accessory muscle use. Cardio: Normal S1/S2, regular rhythm, no murmurs, no JVD Abdomen: Soft, Wound VAC in place with clean margins and healthy granulation tissue, mild tenderness at R drainage site, no palpable masses, peristalsis present, no guarding or rebound. two pleural drainages in place and draining well. Extremities: Symmetrical, no significant deformities, no peripheral edema , non-tender, peripheral pulses presents. Skin: no lesions, warm to touch. Neuro: No focal neurological deficits. motor and sensory intact Psych: Cooperative, appropriate mood and effect. Objective Labs 02/02/24 05:12 02/02/24 05:12 Labs: Laboratory Results - last 24 hr 02/02/24 05:12 PT 12.4 H INR 1.1 APTT 30.9 ABG Interpretation ABG results: 12/21/23 12/24/23 12/25/23 15:50 19:45 02:34 ABG pH 7.40 7.23 L D ABG pCO2 40 56 H D ABG pO2 134 H 229 H D ABG HCO3 25 24 ABG O2 Saturation 99 H 100 H ABG Base Excess 0 -5 L VBG pH 7.48 VBG pCO2 35 L VBG pO2 56 VBG Base Excess 2 12/25/23 12/25/23 12/26/23 04:54 10:48 06:56 ABG pH 7.25 L 7.33 L 7.34 L ABG pCO2 52 H 45 43 ABG pO2 93 D 99 95 ABG HCO3 23 23 23 ABG O2 Saturation 97 98 98 ABG Base Excess -5 L -3 -2 VBG pH VBG pCO2 VBG pO2 VBG Base Excess 12/26/23 01/05/24 01/06/24 10:15 08:13 13:50 ABG pH 7.36 7.37 7.42 ABG pCO2 41 38 30 L ABG pO2 87 75 L 90 ABG HCO3 23 22 19 L ABG O2 Saturation 98 96 98 ABG Base Excess -2 -3 -5 L VBG pH VBG pCO2 VBG pO2 VBG Base Excess 01/06/24 01/07/24 01/07/24 21:44 00:30 04:35 ABG pH 7.12 L* D 7.22 L D 7.27 L ABG pCO2 69 H D 52 H D 45 ABG pO2 261 H D 161 H D 209 H D ABG HCO3 22 21 21 ABG O2 Saturation 100 H 99 H 100 H ABG Base Excess -7 L -6 L -6 L VBG pH VBG pCO2 VBG pO2 VBG Base Excess 01/08/24 01/09/24 01/09/24 04:50 04:14 15:49 ABG pH 7.24 L 7.26 L 7.27 L ABG pCO2 47 50 H 51 H ABG pO2 97 D 97 90 ABG HCO3 20 22 23 ABG O2 Saturation 98 98 97 ABG Base Excess -7 L -5 L -4 L VBG pH VBG pCO2 VBG pO2 VBG Base Excess 01/10/24 01/11/24 01/12/24 04:52 04:35 05:24 ABG pH 7.33 L 7.34 L 7.31 L ABG pCO2 43 43 49 H ABG pO2 101 99 106 ABG HCO3 23 23 25 ABG O2 Saturation 98 98 98 ABG Base Excess -3 -3 -2 VBG pH VBG pCO2 VBG pO2 VBG Base Excess Quality Measures Quality Measures VTE prophylaxis (heparin subcutaneously) Assessment & Plan Assessment Current Active Medications: Generic Name Dose Route Start Last Admin Trade Name Freq PRN Reason Stop Dose Admin Acetaminophen 650 mg 01/24/24 23:23 02/02/24 21:30 Acetaminophen 325 Mg Tablet PO 02/21/24 20:48 650 mg Q6HR PRN Administration Pain Scale 1-3 or Fever >100.3 Amlodipine Besylate 10 mg 01/13/24 12:30 01/25/24 09:00 Amlodipine Besylate 5 Mg Tablet PO 02/12/24 12:29 10 mg QDAY TAL Administration Citric Acid/Sodium Citrate 30 ml 01/26/24 09:00 02/03/24 08:33 Citric Acid/Sodium Citr 15 Ml Udc (Bicitra) PO 02/25/24 08:59 30 ml BID TAL Administration Dextrose 25 ml 01/04/24 14:37 Dextrose 50%-Water Inj 50 Ml Syringe IV 02/03/24 14:36 Q15MIN PRN BG 50-70 responsive npo pt Dextrose 50 ml 01/04/24 14:37 Dextrose 50%-Water Inj 50 Ml Syringe IV 02/03/24 14:36 Q15MIN PRN BG <50 OR BG <70 & pt unresponsive Glucagon 1 mg 01/07/24 11:34 Glucagon Inj 1 Mg Vial IM Q15MIN PRN BG <70, and no IV access Fat Emulsion-[place] Oil/Soybean Oil 500 mls @ 32 mls/hr 01/28/24 18:00 01/29/24 19:01 Clinopid 20% Iv IV 02/27/24 17:59 Infused We@1800 TAL Infusion Calcium Gluconate 1 gm/ 1,012 mls @ 70 mls/hr 02/03/24 01:55 02/03/24 02:45 Magnesium Sulfate 1 gm/ Amino IV 02/03/24 16:22 70 mls/hr Acids X1 ONE Administration Insulin Glargine 10 unit 01/04/24 14:45 02/03/24 08:33 Insulin Glargine (Lantus) 5 Unit/0.05 Ml (Per 5 Units) SC 02/03/24 14:44 10 unit QDAY TAL Administration Insulin Human Lispro 0 unit 01/28/24 00:00 02/03/24 05:05 Insulin Lispro (Admelog) 1 Unit/0.01 Ml Unit SC 02/27/24 00:00 1 unit Q6HR TAL Administration Protocol Labetalol HCl 10 mg 01/05/24 19:16 01/13/24 13:24 Labetalol Inj 5 Mg/Ml Vial 20 Ml IVP 02/04/24 19:29 10 mg Q6H PRN Administration SBP >170, DBP>110 Levofloxacin 250 mg 02/03/24 09:00 02/03/24 08:34 Levofloxacin 250 Mg Tablet PO 02/10/24 08:59 250 mg QDAY TAL Administration Metoclopramide HCl 10 mg 01/29/24 20:54 02/03/24 05:02 Metoclopramide Inj 5 Mg/Ml Vial 2 Ml IVP 02/28/24 20:53 10 mg Q6HR TAL Administration Protocol Metoprolol Succinate 50 mg 01/26/24 09:00 02/03/24 08:33 Metoprolol Succinate Xl 25 Mg Tabcr PO 02/25/24 08:59 50 mg QDAY TAL Administration Mirtazapine 15 mg 01/23/24 21:00 02/02/24 21:24 Mirtazapine 15 Mg Tablet PO 02/22/24 20:59 15 mg HS TAL Administration Plan 43-year-old male with no significant past medical history who was admitted to the hospital by general surgery on 12/21/2023 for acute perforated appendicitis with multiple postop complications. #Sepsis likely secondary to acute perforated appendicitis #Acute perforated appendicitis #Small bowel perforation s/p ileostomy #Peritonitis #Subcapsular abscess s/p CT-guided drain placement #Subphrenic abscess, R ?Initially patient met SIRS 2 out of 4 with leukocytosis and tachycardia ?Patient underwent multiple surgical procedures including laparoscopic appendectomy on day of admission (12/21/2023), 2 ex laps (12/25/2023 and 01/06/2024), and additional secondary closure of abdomen incision (01/01/2024). ?Multiple blood cultures, urine cultures, sputum cultures, and abdominal wound cultures have come back negative ?Abdomen/pelvis CT on 01/12/2024 showed localized fluid collection on the right lower abdomen consistent with an abscess ?Patient had percutaneous drainage catheter taken out by IR as per general surgeon ?Patient has not been having good oral intake therefore TPN will be continued as per general surgeon -DC'd vancomycin (day 9) and Zosyn (day 8 of second treatment) -WBC 12.6 (downtrended) yesterday and still tachycardic -CT abdomen/pelvis (01/18/24) showed Right subphrenic abscess which is very small in thickness, 13 mm and abscess below the liver measures 8.4 x 11.5 x 3.8 cm -IR placed pleural drainage again on 01/20/2024 and additional drainage today [02/02/2024-] -DC'd meropenem [01/18/2024-01/26/2024] -DC'd Flagyl [01/26/24-02/02/2024] Plan: -Continue TPN as per Dr. Rubio, recommend titrate down as patient is having PO intake. ?Recommend to encourage oral intake and advance diet as tolerated. -Recommend to follow ID recommendations on Antibiotic regimen levaquin [01/26/24-] -Recommend flushing pleural drainage. ?Recommend wound care. ?Will continue to monitor for any spiking any fever or elevated WBC. #ANITHA #Likely ATN #NAGMA ?Creatinine improving to 1.8 yesterday -Likely ATN given multiple CT w contrast -Nephrology ordered nuclear medicine renal scan showed no renal function., as per nephrology this is likely ATN and patient will not need HD for now. Plan: -Recommend encourage oral hydration -Recommend to continue Bicitra as per nephrology ?Avoid nephrotoxic agents. ?Renally dose medications. -Nephrology consulted, appreciate recommendations ?Will continue to monitor. #Sinus Tachycardia #Hypertension. -Possibly related pain from recent surgeries, less likely infectious -EKGs in december 2023 reveal sinus tachycardia -Discontinued amlodipine. Plan: -Continue metoprolol succinate to 50 mg daily. #Irritant contact dermatitis. -Patient developed an inner thigh rash most likely due to friction Plan: -Will continue to monitor #Normocytic normochromic anemia. ?Hgb 9.4 yesterday ?Most likely a component of some blood loss given multiple surgical procedures and hemodilution Plan: ?Recommend to transfuse if hemoglobin less than 7 ?Will continue to monitor #Hypokalemia, resolved #Hypomagnesemia #Hyponatremia #hypocalcemia #Hyperphosphatemia -Potassium 3.3, sodium 135, Mg 1.5, phos 4.1, Calcium 7.8 yesterday Plan: -Recommend to replete as necessary -Will continue to monitor #Acute hypoxic respiratory failure, resolved. #Pleural effusion, resolved. ?Patient was intubated in the ICU and was successfully extubated on 01/12/2024 ?Chest x-ray on 01/12/2024 showed no pneumonia and no right pleural fluid ?Patient had chest tube taken out by general surgeon -Will assess possibility to take chest tube out ?Checks x-ray 01/15/24 showed no pleural fluid Plan: ?Will continue to monitor Thank you for allowing us to be part of the patient's care. Disposition: Patient seen in telemetry, monitoring ADIS's, pain management, and oral intake. Diet:Regular GI prophylaxis: protonix. DVT prophylaxis: heparin sc. Code: Full code. Nutritional: TPN Case disclosed with Attending Dr. Padilla and My senior Dr. Carey PGY2 Cortez Harp PGY1 Attending Provider Attestation/Addendum Susannah Escalera, DO, attest that I was physically present for the augustine portions of the service and evaluated the patient with the resident and I reviewed and discussed the case with the resident and agree with the resident's findings and plans of care as documented above Patient seen and eval this a.m. Patient appears more alert today. He continues to have over 200 cc of purulent output from abdominal drains. He denies any pain. He continues to have dry cough. Encourage patient to use incentive spirometer. Patient is otherwise tolerating diet.
--- NOTE | 2024-02-03 09:26 | PC.SS ---
SS follow up note; Patient had to get new drainages due to abscess.
[2024-02-03] MEDS: POTASSIUM ACET IV (17:16)
[2024-02-03] MEDS: [UNRECOGNIZED DRUG - OTHER] IV (17:16)
--- NOTE | 2024-02-03 19:18 | PD.IMPROG ---
Documentation for date of: 02/03/24 Subjective Subjective Interval history: Tolerating food Exam Vital Signs Temp Pulse Resp BP Pulse Ox O2 Del Method O2 Flow Rate 98.6 F 120 H 18 138/99 H 98 Room Air 3 02/03/24 12:09 02/03/24 16:00 02/03/24 12:09 02/03/24 12:09 02/03/24 12:09 02/03/24 12:09 02/02/24 13:05 FiO2 30 01/29/24 21:55 Objective Labs 02/02/24 05:12 02/02/24 05:12 Impressions Impression: # Gastric motility disorder on IV Reglan # Proximal esophageal stricture status post endoscopic dilatation Continue current management ABG Interpretation ABG results: 12/21/23 12/24/23 12/25/23 15:50 19:45 02:34 ABG pH 7.40 7.23 L D ABG pCO2 40 56 H D ABG pO2 134 H 229 H D ABG HCO3 25 24 ABG O2 Saturation 99 H 100 H ABG Base Excess 0 -5 L VBG pH 7.48 VBG pCO2 35 L VBG pO2 56 VBG Base Excess 2 12/25/23 12/25/23 12/26/23 04:54 10:48 06:56 ABG pH 7.25 L 7.33 L 7.34 L ABG pCO2 52 H 45 43 ABG pO2 93 D 99 95 ABG HCO3 23 23 23 ABG O2 Saturation 97 98 98 ABG Base Excess -5 L -3 -2 VBG pH VBG pCO2 VBG pO2 VBG Base Excess 12/26/23 01/05/24 01/06/24 10:15 08:13 13:50 ABG pH 7.36 7.37 7.42 ABG pCO2 41 38 30 L ABG pO2 87 75 L 90 ABG HCO3 23 22 19 L ABG O2 Saturation 98 96 98 ABG Base Excess -2 -3 -5 L VBG pH VBG pCO2 VBG pO2 VBG Base Excess 01/06/24 01/07/24 01/07/24 21:44 00:30 04:35 ABG pH 7.12 L* D 7.22 L D 7.27 L ABG pCO2 69 H D 52 H D 45 ABG pO2 261 H D 161 H D 209 H D ABG HCO3 22 21 21 ABG O2 Saturation 100 H 99 H 100 H ABG Base Excess -7 L -6 L -6 L VBG pH VBG pCO2 VBG pO2 VBG Base Excess 01/08/24 01/09/24 01/09/24 04:50 04:14 15:49 ABG pH 7.24 L 7.26 L 7.27 L ABG pCO2 47 50 H 51 H ABG pO2 97 D 97 90 ABG HCO3 20 22 23 ABG O2 Saturation 98 98 97 ABG Base Excess -7 L -5 L -4 L VBG pH VBG pCO2 VBG pO2 VBG Base Excess 01/10/24 01/11/24 01/12/24 04:52 04:35 05:24 ABG pH 7.33 L 7.34 L 7.31 L ABG pCO2 43 43 49 H ABG pO2 101 99 106 ABG HCO3 23 23 25 ABG O2 Saturation 98 98 98 ABG Base Excess -3 -3 -2 VBG pH VBG pCO2 VBG pO2 VBG Base Excess Assessment & Plan A&P Narrative abd perforation at surgery about a month ago now delayed wound closure done 12/31/23 dm II. a1c not too bad ckd, with dany changed Friday to renally dosed levaquin/flagyl and stopped flagyl todayd. changed to po home when off tpn and when ready, duration of rx is anyone's guess as we have bombed past the usual rx for peritonitis with perforation. if nausea improves. home ok at discretion of surgery. f/u with surgery, no need for outpt ID f/u after release. Time Spent With Patient Time: Total time spent is greater than 50% in coordination of care (as documented) at patient's floor/unit and/or counseling patient:
[2024-02-03] MEDS: MIRTAZAPINE 15 MG TABLET PO (20:32)
[2024-02-03] MEDS: ACETAMINOPHEN 325 MG TABLET 650 MG PO (21:34)
[2024-02-04] VITALS (13 sets, daily range): BP systolic 120–141; BP diastolic 88–96; PULSE 108–128; RESP 18–24; TEMP 36.1–36.9; O2SAT 97–98; BMI 32.4
[2024-02-04] MEDS: METOCLOPRAMIDE INJ 5 MG/ML VIAL 2 ML 10 MG IVP ×4 (00:52→17:50)
[2024-02-04] MEDS: INSULIN LISPRO (AdmeLOG) 1 UNIT/0.01 ML UNIT SC ×3 (00:52→11:51)
[2024-02-04] MEDS: METOPROLOL SUCCINATE XL 25 MG TABCR 50 MG PO (08:11)
[2024-02-04] MEDS: CITRIC ACID/SODIUM CITR 15 ML UDC (BICITRA) 30 ML PO ×2 (08:11→20:07)
[2024-02-04] MEDS: LEVOFLOXACIN 250 MG TABLET PO (08:12)
[2024-02-04] MEDS: AMINO ACID IV (09:19)
[2024-02-04] MEDS: MULTIVITAMIN IV (09:19)
[2024-02-04] MEDS: [UNRECOGNIZED DRUG - OTHER] IV (09:19)
--- NOTE | 2024-02-04 11:36 | PD.RESPRO ---
Documentation for date of: 02/04/24 Subjective Subjective Interval history: Patient was seen and examined at bedside. No acute overnight events. Patient is tolerating oral diet well. His drainage output remains good. Will continue current management and monitor patient, titrating down TPN. Exam Vital Signs Temp Pulse Resp BP Pulse Ox O2 Del Method O2 Flow Rate 98.4 F 113 H 21 H 131/91 H 97 Room Air 3 02/04/24 09:00 02/04/24 09:00 02/04/24 09:00 02/04/24 09:00 02/04/24 09:00 02/04/24 09:00 02/03/24 21:00 FiO2 30 02/04/24 05:00 Narrative Exam Gen: Well-developed and well-nourished male. HEENT: NCAT, PERRLA, EOMI, MMM, anicteric conjunctivae. CVS: normal S1 and S2. RRR. No M/R/G. Resp: CTA B/L. No rhonchi, rales, crackles or wheezing. Abd: soft, minimally tender, non-distended. BS+ in all 4 quadrants. Wound VAC in place with clean margins and healthy granulation tissue, no palpable masses. Abscess drainage x2 in place. MSK: Good ROM in BUE & BLE. No edema or rash. Neuro: CN II-XII grossly intact. Strength 5/5 in BUE & BLE. Alert and oriented x3. Psych: appropriate mood and affect. Objective Labs 02/02/24 05:12 02/02/24 05:12 ABG Interpretation ABG results: 12/21/23 12/24/23 12/25/23 15:50 19:45 02:34 ABG pH 7.40 7.23 L D ABG pCO2 40 56 H D ABG pO2 134 H 229 H D ABG HCO3 25 24 ABG O2 Saturation 99 H 100 H ABG Base Excess 0 -5 L VBG pH 7.48 VBG pCO2 35 L VBG pO2 56 VBG Base Excess 2 12/25/23 12/25/23 12/26/23 04:54 10:48 06:56 ABG pH 7.25 L 7.33 L 7.34 L ABG pCO2 52 H 45 43 ABG pO2 93 D 99 95 ABG HCO3 23 23 23 ABG O2 Saturation 97 98 98 ABG Base Excess -5 L -3 -2 VBG pH VBG pCO2 VBG pO2 VBG Base Excess 12/26/23 01/05/24 01/06/24 10:15 08:13 13:50 ABG pH 7.36 7.37 7.42 ABG pCO2 41 38 30 L ABG pO2 87 75 L 90 ABG HCO3 23 22 19 L ABG O2 Saturation 98 96 98 ABG Base Excess -2 -3 -5 L VBG pH VBG pCO2 VBG pO2 VBG Base Excess 01/06/24 01/07/24 01/07/24 21:44 00:30 04:35 ABG pH 7.12 L* D 7.22 L D 7.27 L ABG pCO2 69 H D 52 H D 45 ABG pO2 261 H D 161 H D 209 H D ABG HCO3 22 21 21 ABG O2 Saturation 100 H 99 H 100 H ABG Base Excess -7 L -6 L -6 L VBG pH VBG pCO2 VBG pO2 VBG Base Excess 01/08/24 01/09/24 01/09/24 04:50 04:14 15:49 ABG pH 7.24 L 7.26 L 7.27 L ABG pCO2 47 50 H 51 H ABG pO2 97 D 97 90 ABG HCO3 20 22 23 ABG O2 Saturation 98 98 97 ABG Base Excess -7 L -5 L -4 L VBG pH VBG pCO2 VBG pO2 VBG Base Excess 01/10/24 01/11/24 01/12/24 04:52 04:35 05:24 ABG pH 7.33 L 7.34 L 7.31 L ABG pCO2 43 43 49 H ABG pO2 101 99 106 ABG HCO3 23 23 25 ABG O2 Saturation 98 98 98 ABG Base Excess -3 -3 -2 VBG pH VBG pCO2 VBG pO2 VBG Base Excess Quality Measures Quality Measures VTE prophylaxis (heparin subcutaneously) Assessment & Plan Assessment Current Active Medications: Generic Name Dose Route Start Last Admin Trade Name Freq PRN Reason Stop Dose Admin Acetaminophen 650 mg 01/24/24 23:23 02/03/24 21:34 Acetaminophen 325 Mg Tablet PO 02/21/24 20:48 650 mg Q6HR PRN Administration Pain Scale 1-3 or Fever >100.3 Amlodipine Besylate 10 mg 01/13/24 12:30 01/25/24 09:00 Amlodipine Besylate 5 Mg Tablet PO 02/12/24 12:29 10 mg QDAY TAL Administration Citric Acid/Sodium Citrate 30 ml 01/26/24 09:00 02/04/24 08:11 Citric Acid/Sodium Citr 15 Ml Udc (Bicitra) PO 02/25/24 08:59 30 ml BID TAL Administration Glucagon 1 mg 01/07/24 11:34 Glucagon Inj 1 Mg Vial IM Q15MIN PRN BG <70, and no IV access Fat Emulsion-[place] Oil/Soybean Oil 500 mls @ 32 mls/hr 01/28/24 18:00 01/29/24 19:01 Clinopid 20% Iv IV 02/27/24 17:59 Infused We@1800 TAL Infusion Multivitamins/Minerals 10 ml/ 1,010 mls @ 70 mls/hr 02/04/24 07:48 02/04/24 09:19 Amino Acids IV 02/04/24 22:13 70 mls/hr .[id number] TAL Administration Insulin Human Lispro 0 unit 01/28/24 00:00 02/04/24 05:11 Insulin Lispro (Admelog) 1 Unit/0.01 Ml Unit SC 02/27/24 00:00 1 unit Q6HR TAL Administration Protocol Labetalol HCl 10 mg 01/05/24 19:16 01/13/24 13:24 Labetalol Inj 5 Mg/Ml Vial 20 Ml IVP 02/04/24 19:29 10 mg Q6H PRN Administration SBP >170, DBP>110 Levofloxacin 250 mg 02/03/24 09:00 02/04/24 08:12 Levofloxacin 250 Mg Tablet PO 02/10/24 08:59 250 mg QDAY TAL Administration Metoclopramide HCl 10 mg 01/29/24 20:54 02/04/24 05:12 Metoclopramide Inj 5 Mg/Ml Vial 2 Ml IVP 02/28/24 20:53 10 mg Q6HR TAL Administration Protocol Metoprolol Succinate 50 mg 01/26/24 09:00 02/04/24 08:11 Metoprolol Succinate Xl 25 Mg Tabcr PO 02/25/24 08:59 50 mg QDAY TAL Administration Mirtazapine 15 mg 01/23/24 21:00 02/03/24 20:32 Mirtazapine 15 Mg Tablet PO 02/22/24 20:59 15 mg HS TAL Administration Plan 43-year-old male with no significant past medical history who was admitted to the hospital by general surgery on 12/21/2023 for acute perforated appendicitis with multiple postop complications. #Sepsis likely secondary to acute perforated appendicitis #Acute perforated appendicitis #Small bowel perforation s/p ileostomy #Peritonitis #Subcapsular abscess s/p CT-guided drain placement #Subphrenic abscess, R ?Initially patient met SIRS 2 out of 4 with leukocytosis and tachycardia ?Patient underwent multiple surgical procedures including laparoscopic appendectomy on day of admission (12/21/2023), 2 ex laps (12/25/2023 and 01/06/2024), and additional secondary closure of abdomen incision (01/01/2024). ?Multiple blood cultures, urine cultures, sputum cultures, and abdominal wound cultures have come back negative ?Abdomen/pelvis CT on 01/12/2024 showed localized fluid collection on the right lower abdomen consistent with an abscess ?Patient had percutaneous drainage catheter taken out by IR as per general surgeon ?Patient has not been having good oral intake therefore TPN will be continued as per general surgeon -DC'd vancomycin (day 9) and Zosyn (day 8 of second treatment) -WBC 12.6 (downtrended) yesterday and still tachycardic -CT abdomen/pelvis (01/18/24) showed Right subphrenic abscess which is very small in thickness, 13 mm and abscess below the liver measures 8.4 x 11.5 x 3.8 cm -IR placed pleural drainage again on 01/20/2024 and additional drainage today [02/02/2024-] -DC'd meropenem [01/18/2024-01/26/2024] -DC'd Flagyl [01/26/24-02/02/2024] Plan: -Continue TPN as per Dr. Rubio, recommend titrate down as patient is having PO intake. ?Recommend to encourage oral intake and advance diet as tolerated. -Recommend to follow ID recommendations on Antibiotic regimen levaquin [01/26/24-] -Recommend flushing pleural drainage. ?Recommend wound care. ?Will continue to monitor for any spiking any fever or elevated WBC. #ANITHA. #Likely ATN. #NAGMA. ?Creatinine improving to 1.8 yesterday -Likely ATN given multiple CT w contrast -Nephrology ordered nuclear medicine renal scan showed no renal function., as per nephrology this is likely ATN and patient will not need HD for now. Plan: -Recommend encourage oral hydration -Recommend to continue Bicitra as per nephrology ?Avoid nephrotoxic agents. ?Renally dose medications. -Nephrology consulted, appreciate recommendations ?Will continue to monitor. #Sinus Tachycardia. #Hypertension. -Possibly related pain from recent surgeries, less likely infectious -EKGs in december 2023 reveal sinus tachycardia -Discontinued amlodipine. Plan: -Continue metoprolol succinate to 50 mg daily. #Irritant contact dermatitis, resolved. -Patient developed an inner thigh rash most likely due to friction Plan: -Will continue to monitor #Normocytic normochromic anemia. ?Hgb 9.4 yesterday ?Most likely a component of some blood loss given multiple surgical procedures and hemodilution Plan: ?Recommend to transfuse if hemoglobin less than 7 ?Will continue to monitor #Hypokalemia, resolved #Hypomagnesemia, resolved. #Hyponatremia #hypocalcemia #Hyperphosphatemia, resolved. -Potassium 3.3, sodium 135, Mg 1.5, phos 4.1, Calcium 7.8 yesterday Plan: -Recommend to replete as necessary. -Will continue to monitor. #Acute hypoxic respiratory failure, resolved. #Pleural effusion, resolved. ?Patient was intubated in the ICU and was successfully extubated on 01/12/2024 ?Chest x-ray on 01/12/2024 showed no pneumonia and no right pleural fluid ?Patient had chest tube taken out by general surgeon -Will assess possibility to take chest tube out ?Checks x-ray 01/15/24 showed no pleural fluid Plan: ?Will continue to monitor. Thank you for allowing us to be part of the patient's care. Disposition: Patient seen in telemetry, monitoring ADIS's, pain management, and oral intake. Diet: Regular GI prophylaxis: protonix. DVT prophylaxis: heparin sc. Code: Full code. Nutritional: TPN Plan of care discussed with attending Dr. Arora. Cr Carey MD, PGY 2. Disclaimer: This note was dictated by speech recognition. Minor errors in new client banking services clerk may be present due to voice recognition software. Attending Provider Attestation/Addendum Patient has subphrenic percutaneous drain. Patient is still tachycardic. He is on PPN. He is afebrile. He is not on oxygen anymore. Continue current management per surgery. Discussed with housestaff.
--- NOTE | 2024-02-04 11:40 | PD.SURPROG ---
Documentation for date of: 02/04/24 Subjective Subjective Brief History: As above Narrative: Patient is feeling better and his eating has increased. There is very minimal drainage in the abscess catheter. Exam Vital Signs Temp Pulse Resp BP Pulse Ox O2 Del Method O2 Flow Rate 98.4 F 113 H 21 H 131/91 H 97 Room Air 3 02/04/24 09:00 02/04/24 09:00 02/04/24 09:00 02/04/24 09:00 02/04/24 09:00 02/04/24 09:00 02/03/24 21:00 FiO2 30 02/04/24 05:00 Vital signs are normal except the tachycardia Routine Abdominal Exam Comments: Abdominal examination is negative Assessment & Plan Assessment Additional comments: Impression: Increased oral intake Diminished drainage in the abscess catheter Plan Plan: Discussed with Dr. Caceres who suggest we order another CT scan and then pull out the tube We shall cut down the TPN to 50 cc/h and hopefully we will discontinue the tube Procedures Procedures Exploratory laparotomy and drainage of the subcutaneous infection and wound VAC application
--- NOTE | 2024-02-04 13:17 | PD.IDPROG ---
Subjective Subjective Interval history: afebrile on po rx. doing ok. eating some per notes. Exam Vital Signs Temp Pulse Resp BP Pulse Ox O2 Del Method O2 Flow Rate 97.6 F 115 H 19 120/92 H 97 Room Air 3 02/04/24 13:00 02/04/24 13:00 02/04/24 13:00 02/04/24 13:00 02/04/24 13:00 02/04/24 13:00 02/03/24 21:00 FiO2 30 02/04/24 05:00 Narrative Exam limited eval today Objective - Internal Medicine Labs 02/02/24 05:12 02/02/24 05:12 ABG Interpretation ABG results: 12/21/23 12/24/23 12/25/23 15:50 19:45 02:34 ABG pH 7.40 7.23 L D ABG pCO2 40 56 H D ABG pO2 134 H 229 H D ABG HCO3 25 24 ABG O2 Saturation 99 H 100 H ABG Base Excess 0 -5 L VBG pH 7.48 VBG pCO2 35 L VBG pO2 56 VBG Base Excess 2 12/25/23 12/25/23 12/26/23 04:54 10:48 06:56 ABG pH 7.25 L 7.33 L 7.34 L ABG pCO2 52 H 45 43 ABG pO2 93 D 99 95 ABG HCO3 23 23 23 ABG O2 Saturation 97 98 98 ABG Base Excess -5 L -3 -2 VBG pH VBG pCO2 VBG pO2 VBG Base Excess 12/26/23 01/05/24 01/06/24 10:15 08:13 13:50 ABG pH 7.36 7.37 7.42 ABG pCO2 41 38 30 L ABG pO2 87 75 L 90 ABG HCO3 23 22 19 L ABG O2 Saturation 98 96 98 ABG Base Excess -2 -3 -5 L VBG pH VBG pCO2 VBG pO2 VBG Base Excess 01/06/24 01/07/24 01/07/24 21:44 00:30 04:35 ABG pH 7.12 L* D 7.22 L D 7.27 L ABG pCO2 69 H D 52 H D 45 ABG pO2 261 H D 161 H D 209 H D ABG HCO3 22 21 21 ABG O2 Saturation 100 H 99 H 100 H ABG Base Excess -7 L -6 L -6 L VBG pH VBG pCO2 VBG pO2 VBG Base Excess 01/08/24 01/09/24 01/09/24 04:50 04:14 15:49 ABG pH 7.24 L 7.26 L 7.27 L ABG pCO2 47 50 H 51 H ABG pO2 97 D 97 90 ABG HCO3 20 22 23 ABG O2 Saturation 98 98 97 ABG Base Excess -7 L -5 L -4 L VBG pH VBG pCO2 VBG pO2 VBG Base Excess 01/10/24 01/11/24 01/12/24 04:52 04:35 05:24 ABG pH 7.33 L 7.34 L 7.31 L ABG pCO2 43 43 49 H ABG pO2 101 99 106 ABG HCO3 23 23 25 ABG O2 Saturation 98 98 98 ABG Base Excess -3 -3 -2 VBG pH VBG pCO2 VBG pO2 VBG Base Excess Assessment & Plan A&P Narrative abd perforation at surgery over a month ago now delayed wound closure done 12/31/23 dm II. a1c not too bad ckd, with dany changed Friday to renally dosed levaquin/flagyl and stopped flagyl 02/01 changed to po for friday home when off tpn and when ready otherwise. will see again prn, duration of rx is anyone's guess as we have bombed past the usual rx for peritonitis with perforation.suggest another 5d at home if nausea improves. home ok at discretion of surgery. f/u with surgery, no need for outpt ID f/u after release. Time Spent With Patient Time: Total time spent is greater than 50% in coordination of care (as documented) at patient's floor/unit and/or counseling patient:
[2024-02-04] MEDS: FAT EMUL/OLIVE/SOY/PHOS 20% IV 500 ML 32 ML IV (17:50)
--- NOTE | 2024-02-04 19:10 | PD.IMPROG ---
Documentation for date of: 02/04/24 Subjective Subjective Interval history: Tolerating the diet and keeping it down and no nausea vomiting Exam Vital Signs Temp Pulse Resp BP Pulse Ox O2 Del Method O2 Flow Rate 97.9 F 115 H 24 H 132/92 H 98 Room Air 3 02/04/24 16:57 02/04/24 16:57 02/04/24 16:57 02/04/24 16:57 02/04/24 16:57 02/04/24 16:57 02/03/24 21:00 FiO2 30 02/04/24 05:00 Objective Labs 02/02/24 05:12 02/02/24 05:12 Impressions Impression: # No nausea vomiting Continue current management ABG Interpretation ABG results: 12/21/23 12/24/23 12/25/23 15:50 19:45 02:34 ABG pH 7.40 7.23 L D ABG pCO2 40 56 H D ABG pO2 134 H 229 H D ABG HCO3 25 24 ABG O2 Saturation 99 H 100 H ABG Base Excess 0 -5 L VBG pH 7.48 VBG pCO2 35 L VBG pO2 56 VBG Base Excess 2 12/25/23 12/25/23 12/26/23 04:54 10:48 06:56 ABG pH 7.25 L 7.33 L 7.34 L ABG pCO2 52 H 45 43 ABG pO2 93 D 99 95 ABG HCO3 23 23 23 ABG O2 Saturation 97 98 98 ABG Base Excess -5 L -3 -2 VBG pH VBG pCO2 VBG pO2 VBG Base Excess 12/26/23 01/05/24 01/06/24 10:15 08:13 13:50 ABG pH 7.36 7.37 7.42 ABG pCO2 41 38 30 L ABG pO2 87 75 L 90 ABG HCO3 23 22 19 L ABG O2 Saturation 98 96 98 ABG Base Excess -2 -3 -5 L VBG pH VBG pCO2 VBG pO2 VBG Base Excess 01/06/24 01/07/24 01/07/24 21:44 00:30 04:35 ABG pH 7.12 L* D 7.22 L D 7.27 L ABG pCO2 69 H D 52 H D 45 ABG pO2 261 H D 161 H D 209 H D ABG HCO3 22 21 21 ABG O2 Saturation 100 H 99 H 100 H ABG Base Excess -7 L -6 L -6 L VBG pH VBG pCO2 VBG pO2 VBG Base Excess 01/08/24 01/09/24 01/09/24 04:50 04:14 15:49 ABG pH 7.24 L 7.26 L 7.27 L ABG pCO2 47 50 H 51 H ABG pO2 97 D 97 90 ABG HCO3 20 22 23 ABG O2 Saturation 98 98 97 ABG Base Excess -7 L -5 L -4 L VBG pH VBG pCO2 VBG pO2 VBG Base Excess 01/10/24 01/11/24 01/12/24 04:52 04:35 05:24 ABG pH 7.33 L 7.34 L 7.31 L ABG pCO2 43 43 49 H ABG pO2 101 99 106 ABG HCO3 23 23 25 ABG O2 Saturation 98 98 98 ABG Base Excess -3 -3 -2 VBG pH VBG pCO2 VBG pO2 VBG Base Excess Assessment & Plan A&P Narrative abd perforation at surgery over a month ago now delayed wound closure done 12/31/23 dm II. a1c not too bad ckd, with dany changed Friday to renally dosed levaquin/flagyl and stopped flagyl 02/01 changed to po for friday home when off tpn and when ready otherwise. will see again prn, duration of rx is anyone's guess as we have bombed past the usual rx for peritonitis with perforation.suggest another 5d at home if nausea improves. home ok at discretion of surgery. f/u with surgery, no need for outpt ID f/u after release. Time Spent With Patient Time: Total time spent is greater than 50% in coordination of care (as documented) at patient's floor/unit and/or counseling patient:
[2024-02-04] MEDS: MIRTAZAPINE 15 MG TABLET PO (20:07)
[2024-02-05] VITALS (13 sets, daily range): BP systolic 118–135; BP diastolic 84–94; PULSE 106–121; RESP 19–29; TEMP 36.1–36.6; O2SAT 96–98; BMI 32.3
[2024-02-05] MEDS: POTASSIUM ACET IV ×2 (00:19→20:08)
[2024-02-05] MEDS: [UNRECOGNIZED DRUG - OTHER] IV (00:19)
[2024-02-05] MEDS: MULTIVITAMIN IV ×2 (00:19→20:08)
[2024-02-05] MEDS: AMINO ACID IV (00:19)
[2024-02-05] MEDS: METOCLOPRAMIDE INJ 5 MG/ML VIAL 2 ML 10 MG IVP ×5 (00:28→23:35)
[2024-02-05 05:46] LABS: Basophils % (Auto) 0 % (0-2.5); Eosinophils # (Auto) 0.1 Thou/mm3 (0.0-0.5); Eosinophils % (Auto) 1 % (0-10); Hematocrit 28.1 % (41.0-53.0); Hemoglobin 9.6 g/dL (13.5-16.0); Immature Granulocytes % (Auto) 2 % (0-0); Immature Granulocytes Auto 0.27 Thou/mm3 (0.00-0.00); Lymphocytes # (Auto) 3.9 Thou/mm3 (1.0-4.8); Lymphocytes % (Auto) 25 % (10-50); Mean Corpuscular HGB Conc 34.2 g/dl (31.0-37.0); Mean Corpuscular Hemoglobin 28.4 pg (25.0-35.0); Mean Corpuscular Volume 83 fL (80-100); Monocytes # (Auto) 0.8 Thou/mm3 (0.0-0.8); Monocytes % (Auto) 5 % (0-12); Neutrophils # (Auto) 10.3 Thou/mm3 (1.8-7.7); Neutrophils % (Auto) 67 % (37-80); Nucleated Red Blood Cell % 0 /100 WBC (0); Platelet Count 445 Thou/mm3 (140-440); RDW Standard Deviation 48.6 fL (35.1-43.9); Red Blood Count 3.38 Miln/mm3 (4.50-5.90); White Blood Count 15.5 Thou/mm3 (3.8-10.6)
[2024-02-05] MEDS: LEVOFLOXACIN 250 MG TABLET PO (09:09)
[2024-02-05] MEDS: METOPROLOL SUCCINATE XL 25 MG TABCR 50 MG PO (09:09)
[2024-02-05] MEDS: CITRIC ACID/SODIUM CITR 15 ML UDC (BICITRA) 30 ML PO ×2 (09:12→20:08)
[2024-02-05] MEDS: HYDROcodone/APAP 5/325 TABLET 1 TAB PO ×3 (09:30→23:35)
[2024-02-05 09:39] LABS: Alanine Aminotransferase 15 U/L (10-49); Albumin, Serum 3.3 gm/dL (3.5-5.0); Alkaline Phosphatase 122 U/L (46-116); Anion Gap 6 (7-16); Aspartate Amino Transferase 21 U/L (0-34); BUN/Creatinine Ratio 23 Ratio (12-20); Bilirubin,Total 0.2 mg/dL (0.3-1.2); Blood Urea Nitrogen 27 mg/dL (9-23); Calcium (Corrected) 8.6 mg/dL (8.5-10.1); Carbon Dioxide 22.8 mMol/L (20.0-31.0); Chloride 105 mMol/L (98-107); Creatinine (Component) 1.2 mg/dL (0.6-1.3); Estimated Creatinine Clearance 78.5 mL/min (>60); Globulin 3.3 gm/dL (2.3-3.5); Glucose 112 mg/dL (74-106); Osmolality,Calculated 274 (275-295); Potassium 3.6 mMol/L (3.4-5.1); Sodium 134 mMol/L (136-145); Total Protein 6.6 gm/dL (5.7-8.2); eGFR > 60 See Note
--- NOTE | 2024-02-05 12:13 | PD.IMPROG ---
Documentation for date of: 02/05/24 Subjective Subjective Interval history: Tolerating p.o. diet No further nausea vomiting abdomen patient has small meals Exam Vital Signs Temp Pulse Resp BP Pulse Ox O2 Del Method O2 Flow Rate 97.6 F 106 H 20 133/84 H 97 Room Air 3 02/05/24 09:00 02/05/24 09:30 02/05/24 09:00 02/05/24 09:09 02/05/24 09:00 02/05/24 09:00 02/05/24 04:46 FiO2 30 02/05/24 04:46 Objective Labs 02/06/24 07:25 02/06/24 07:25 Labs: Laboratory Results - last 24 hr 02/05/24 02/05/24 04:35 08:15 WBC 15.5 H RBC 3.38 L Hgb 9.6 L Hct 28.1 L MCV 83 MCH 28.4 MCHC 34.2 RDW Std Deviation 48.6 H Plt Count 445 H D Neut % (Auto) 67 Lymph % (Auto) 25 [place] % (Auto) 5 Eos % (Auto) 1 Baso % (Auto) 0 Neut # (Auto) 10.3 H Lymph # (Auto) 3.9 [place] # (Auto) 0.8 Eos # (Auto) 0.1 Baso # (Auto) 0.0 Immature Gran # (Auto) 0.27 H Absolute Nucleated RBC 0.00 Immature Gran % 2 H Nucleated RBC % 0 Sodium 134 L Potassium 3.6 Chloride 105 Carbon Dioxide 22.8 Anion Gap 6 L BUN 27 H Creatinine 1.2 D Estim Creat Clear Calc 78.5 eGFR > 60 BUN/Creatinine Ratio 23 H Glucose 112 H Calculated Osmolality 274 L Calcium 8.0 L Corrected Calcium 8.6 Total Bilirubin 0.2 L AST 21 ALT 15 Alkaline Phosphatase 122 H Total Protein 6.6 Albumin 3.3 L Globulin 3.3 Albumin/Globulin Ratio 1.0 L Impressions Impression: # Nausea vomiting improved # Gastroparesis gastric motility disorder Continue current management ABG Interpretation ABG results: 12/21/23 12/24/23 12/25/23 15:50 19:45 02:34 ABG pH 7.40 7.23 L D ABG pCO2 40 56 H D ABG pO2 134 H 229 H D ABG HCO3 25 24 ABG O2 Saturation 99 H 100 H ABG Base Excess 0 -5 L VBG pH 7.48 VBG pCO2 35 L VBG pO2 56 VBG Base Excess 2 12/25/23 12/25/23 12/26/23 04:54 10:48 06:56 ABG pH 7.25 L 7.33 L 7.34 L ABG pCO2 52 H 45 43 ABG pO2 93 D 99 95 ABG HCO3 23 23 23 ABG O2 Saturation 97 98 98 ABG Base Excess -5 L -3 -2 VBG pH VBG pCO2 VBG pO2 VBG Base Excess 12/26/23 01/05/24 01/06/24 10:15 08:13 13:50 ABG pH 7.36 7.37 7.42 ABG pCO2 41 38 30 L ABG pO2 87 75 L 90 ABG HCO3 23 22 19 L ABG O2 Saturation 98 96 98 ABG Base Excess -2 -3 -5 L VBG pH VBG pCO2 VBG pO2 VBG Base Excess 01/06/24 01/07/24 01/07/24 21:44 00:30 04:35 ABG pH 7.12 L* D 7.22 L D 7.27 L ABG pCO2 69 H D 52 H D 45 ABG pO2 261 H D 161 H D 209 H D ABG HCO3 22 21 21 ABG O2 Saturation 100 H 99 H 100 H ABG Base Excess -7 L -6 L -6 L VBG pH VBG pCO2 VBG pO2 VBG Base Excess 01/08/24 01/09/24 01/09/24 04:50 04:14 15:49 ABG pH 7.24 L 7.26 L 7.27 L ABG pCO2 47 50 H 51 H ABG pO2 97 D 97 90 ABG HCO3 20 22 23 ABG O2 Saturation 98 98 97 ABG Base Excess -7 L -5 L -4 L VBG pH VBG pCO2 VBG pO2 VBG Base Excess 01/10/24 01/11/24 01/12/24 04:52 04:35 05:24 ABG pH 7.33 L 7.34 L 7.31 L ABG pCO2 43 43 49 H ABG pO2 101 99 106 ABG HCO3 23 23 25 ABG O2 Saturation 98 98 98 ABG Base Excess -3 -3 -2 VBG pH VBG pCO2 VBG pO2 VBG Base Excess Assessment & Plan A&P Narrative abd perforation at surgery over a month ago now delayed wound closure done 12/31/23 dm II. a1c not too bad ckd, with dany changed Friday to renally dosed levaquin/flagyl and stopped flagyl 02/01 changed to po for friday home when off tpn and when ready otherwise. will see again prn, duration of rx is anyone's guess as we have bombed past the usual rx for peritonitis with perforation.suggest another 5d at home if nausea improves. home ok at discretion of surgery. f/u with surgery, no need for outpt ID f/u after release. Time Spent With Patient Time: Total time spent is greater than 50% in coordination of care (as documented) at patient's floor/unit and/or counseling patient:
--- NOTE | 2024-02-05 12:53 | PD.RESPRO ---
Documentation for date of: 02/05/24 Subjective Subjective Interval history: Patient was seen and examined at bedside. No acute overnight events. Patient reports mild abdominal pain but no nausea or vomiting. He can tolerate oral diet well. His abscess drainage has minimal drainage in both bags. Will continue current management and monitor patient. Exam Vital Signs Temp Pulse Resp BP Pulse Ox O2 Del Method O2 Flow Rate 97.6 F 114 H 20 133/84 H 97 Room Air 3 02/05/24 09:00 02/05/24 12:00 02/05/24 09:00 02/05/24 09:09 02/05/24 09:00 02/05/24 09:00 02/05/24 04:46 FiO2 30 02/05/24 04:46 Narrative Exam Gen: Well-developed and well-nourished male. HEENT: NCAT, PERRLA, EOMI, MMM, anicteric conjunctivae. CVS: normal S1 and S2. RRR. No M/R/G. Resp: CTA B/L. No rhonchi, rales, crackles or wheezing. Abd: soft, minimally tender, non-distended. BS+ in all 4 quadrants. Wound VAC in place with clean margins and healthy granulation tissue, no palpable masses. Abscess drainage x2 in place. MSK: Good ROM in BUE & BLE. No edema or rash. Neuro: CN II-XII grossly intact. Strength 5/5 in BUE & BLE. Alert and oriented x3. Psych: appropriate mood and affect. Objective Labs 02/05/24 04:35 02/05/24 08:15 Labs: Laboratory Results - last 24 hr 02/05/24 02/05/24 04:35 08:15 WBC 15.5 H RBC 3.38 L Hgb 9.6 L Hct 28.1 L MCV 83 MCH 28.4 MCHC 34.2 RDW Std Deviation 48.6 H Plt Count 445 H D Neut % (Auto) 67 Lymph % (Auto) 25 [place] % (Auto) 5 Eos % (Auto) 1 Baso % (Auto) 0 Neut # (Auto) 10.3 H Lymph # (Auto) 3.9 [place] # (Auto) 0.8 Eos # (Auto) 0.1 Baso # (Auto) 0.0 Immature Gran # (Auto) 0.27 H Absolute Nucleated RBC 0.00 Immature Gran % 2 H Nucleated RBC % 0 Sodium 134 L Potassium 3.6 Chloride 105 Carbon Dioxide 22.8 Anion Gap 6 L BUN 27 H Creatinine 1.2 D Estim Creat Clear Calc 78.5 eGFR > 60 BUN/Creatinine Ratio 23 H Glucose 112 H Calculated Osmolality 274 L Calcium 8.0 L Corrected Calcium 8.6 Total Bilirubin 0.2 L AST 21 ALT 15 Alkaline Phosphatase 122 H Total Protein 6.6 Albumin 3.3 L Globulin 3.3 Albumin/Globulin Ratio 1.0 L ABG Interpretation ABG results: 12/21/23 12/24/23 12/25/23 15:50 19:45 02:34 ABG pH 7.40 7.23 L D ABG pCO2 40 56 H D ABG pO2 134 H 229 H D ABG HCO3 25 24 ABG O2 Saturation 99 H 100 H ABG Base Excess 0 -5 L VBG pH 7.48 VBG pCO2 35 L VBG pO2 56 VBG Base Excess 2 12/25/23 12/25/23 12/26/23 04:54 10:48 06:56 ABG pH 7.25 L 7.33 L 7.34 L ABG pCO2 52 H 45 43 ABG pO2 93 D 99 95 ABG HCO3 23 23 23 ABG O2 Saturation 97 98 98 ABG Base Excess -5 L -3 -2 VBG pH VBG pCO2 VBG pO2 VBG Base Excess 12/26/23 01/05/24 01/06/24 10:15 08:13 13:50 ABG pH 7.36 7.37 7.42 ABG pCO2 41 38 30 L ABG pO2 87 75 L 90 ABG HCO3 23 22 19 L ABG O2 Saturation 98 96 98 ABG Base Excess -2 -3 -5 L VBG pH VBG pCO2 VBG pO2 VBG Base Excess 01/06/24 01/07/24 01/07/24 21:44 00:30 04:35 ABG pH 7.12 L* D 7.22 L D 7.27 L ABG pCO2 69 H D 52 H D 45 ABG pO2 261 H D 161 H D 209 H D ABG HCO3 22 21 21 ABG O2 Saturation 100 H 99 H 100 H ABG Base Excess -7 L -6 L -6 L VBG pH VBG pCO2 VBG pO2 VBG Base Excess 01/08/24 01/09/24 01/09/24 04:50 04:14 15:49 ABG pH 7.24 L 7.26 L 7.27 L ABG pCO2 47 50 H 51 H ABG pO2 97 D 97 90 ABG HCO3 20 22 23 ABG O2 Saturation 98 98 97 ABG Base Excess -7 L -5 L -4 L VBG pH VBG pCO2 VBG pO2 VBG Base Excess 01/10/24 01/11/24 01/12/24 04:52 04:35 05:24 ABG pH 7.33 L 7.34 L 7.31 L ABG pCO2 43 43 49 H ABG pO2 101 99 106 ABG HCO3 23 23 25 ABG O2 Saturation 98 98 98 ABG Base Excess -3 -3 -2 VBG pH VBG pCO2 VBG pO2 VBG Base Excess Quality Measures Quality Measures VTE prophylaxis (heparin subcutaneously) Assessment & Plan Assessment Current Active Medications: Generic Name Dose Route Start Last Admin Trade Name Freq PRN Reason Stop Dose Admin Acetaminophen 650 mg 01/24/24 23:23 02/03/24 21:34 Acetaminophen 325 Mg Tablet PO 02/21/24 20:48 650 mg Q6HR PRN Administration Pain Scale 1-3 or Fever >100.3 Hydrocodone Bitart/Acetaminophen 1 tab 02/05/24 09:22 02/05/24 09:30 Hydrocodone/Apap 5/325 Tablet PO 02/10/24 09:21 1 tab Q6HR PRN Administration PAIN SCALE 4-10(Mod-Sev Amlodipine Besylate 10 mg 01/13/24 12:30 01/25/24 09:00 Amlodipine Besylate 5 Mg Tablet PO 02/12/24 12:29 10 mg QDAY TAL Administration Citric Acid/Sodium Citrate 30 ml 01/26/24 09:00 02/05/24 09:12 Citric Acid/Sodium Citr 15 Ml Udc (Bicitra) PO 02/25/24 08:59 30 ml BID TAL Administration Glucagon 1 mg 01/07/24 11:34 Glucagon Inj 1 Mg Vial IM Q15MIN PRN BG <70, and no IV access Fat Emulsion-[place] Oil/Soybean Oil 500 mls @ 32 mls/hr 01/28/24 18:00 02/04/24 17:50 Clinopid 20% Iv IV 02/27/24 17:59 32 mls/hr We@1800 TAL Administration Multivitamins/Minerals 10 ml/ 1,020 mls @ 50 mls/hr 02/04/24 23:45 02/05/24 00:19 Potassium Acetate 20 meq/ IV 02/05/24 20:08 50 mls/hr Amino Acids .[id number] TAL Administration Protocol Multivitamins/Minerals 10 ml/ 1,022 mls @ 50 mls/hr 02/05/24 20:09 Potassium Acetate 20 meq/ IV 02/06/24 16:35 Magnesium Sulfate 1 gm/ Amino .[id number] TAL Acids Protocol Insulin Human Lispro 0 unit 01/28/24 00:00 02/05/24 12:04 Insulin Lispro (Admelog) 1 Unit/0.01 Ml Unit SC 02/27/24 00:00 Not Given Q6HR TAL Protocol Levofloxacin 250 mg 02/03/24 09:00 02/05/24 09:09 Levofloxacin 250 Mg Tablet PO 02/10/24 08:59 250 mg QDAY TAL Administration Metoclopramide HCl 10 mg 01/29/24 20:54 02/05/24 12:13 Metoclopramide Inj 5 Mg/Ml Vial 2 Ml IVP 02/28/24 20:53 10 mg Q6HR TAL Administration Protocol Metoprolol Succinate 50 mg 01/26/24 09:00 02/05/24 09:09 Metoprolol Succinate Xl 25 Mg Tabcr PO 02/25/24 08:59 50 mg QDAY TAL Administration Mirtazapine 15 mg 01/23/24 21:00 02/04/24 20:07 Mirtazapine 15 Mg Tablet PO 02/22/24 20:59 15 mg HS TAL Administration Plan 43-year-old male with no significant past medical history who was admitted to the hospital by general surgery on 12/21/2023 for acute perforated appendicitis with multiple postop complications. #Sepsis likely secondary to acute perforated appendicitis #Acute perforated appendicitis #Small bowel perforation s/p ileostomy #Peritonitis #Subcapsular abscess s/p CT-guided drain placement #Subphrenic abscess, R ?Initially patient met SIRS 2 out of 4 with leukocytosis and tachycardia ?Patient underwent multiple surgical procedures including laparoscopic appendectomy on day of admission (12/21/2023), 2 ex laps (12/25/2023 and 01/06/2024), and additional secondary closure of abdomen incision (01/01/2024). ?Multiple blood cultures, urine cultures, sputum cultures, and abdominal wound cultures have come back negative ?Abdomen/pelvis CT on 01/12/2024 showed localized fluid collection on the right lower abdomen consistent with an abscess ?Patient had percutaneous drainage catheter taken out by IR as per general surgeon ?Patient has not been having good oral intake therefore TPN will be continued as per general surgeon -DC'd vancomycin (day 9) and Zosyn (day 8 of second treatment) -WBC 12.6 (downtrended) yesterday and still tachycardic -CT abdomen/pelvis (01/18/24) showed Right subphrenic abscess which is very small in thickness, 13 mm and abscess below the liver measures 8.4 x 11.5 x 3.8 cm -IR placed pleural drainage again on 01/20/2024 and additional drainage today [02/02/2024-] -DC'd meropenem [01/18/2024-01/26/2024] -DC'd Flagyl [01/26/24-02/02/2024] Plan: -Continue TPN as per Dr. Rubio, recommend titrate down as patient is having PO intake. ?Recommend to encourage oral intake and advance diet as tolerated. -Recommend to follow ID recommendations on Antibiotic regimen levaquin [01/26/24-] -Recommend flushing pleural drainage. ?Recommend wound care. ?Will continue to monitor for any spiking any fever or elevated WBC. #ANITHA. #Likely ATN. #NAGMA. ?Creatinine improving to 1.8 yesterday -Likely ATN given multiple CT w contrast -Nephrology ordered nuclear medicine renal scan showed no renal function., as per nephrology this is likely ATN and patient will not need HD for now. Plan: -Recommend encourage oral hydration -Recommend to continue Bicitra as per nephrology ?Avoid nephrotoxic agents. ?Renally dose medications. -Nephrology consulted, appreciate recommendations ?Will continue to monitor. #Sinus Tachycardia. #Hypertension. -Possibly related pain from recent surgeries, less likely infectious -EKGs in december 2023 reveal sinus tachycardia -Discontinued amlodipine. Plan: -Continue metoprolol succinate to 50 mg daily. #Irritant contact dermatitis, resolved. -Patient developed an inner thigh rash most likely due to friction Plan: -Will continue to monitor #Normocytic normochromic anemia. ?Hgb 9.4 yesterday ?Most likely a component of some blood loss given multiple surgical procedures and hemodilution Plan: ?Recommend to transfuse if hemoglobin less than 7 ?Will continue to monitor #Hypokalemia, resolved #Hypomagnesemia, resolved. #Hyponatremia #hypocalcemia #Hyperphosphatemia, resolved. -Potassium 3.3, sodium 135, Mg 1.5, phos 4.1, Calcium 7.8 yesterday Plan: -Recommend to replete as necessary. -Will continue to monitor. #Acute hypoxic respiratory failure, resolved. #Pleural effusion, resolved. ?Patient was intubated in the ICU and was successfully extubated on 01/12/2024 ?Chest x-ray on 01/12/2024 showed no pneumonia and no right pleural fluid ?Patient had chest tube taken out by general surgeon -Will assess possibility to take chest tube out ?Checks x-ray 01/15/24 showed no pleural fluid Plan: ?Will continue to monitor. Thank you for allowing us to be part of the patient's care. Disposition: Patient seen in telemetry, monitoring ADIS's, pain management, and oral intake. Diet: Regular GI prophylaxis: protonix. DVT prophylaxis: heparin sc. Code: Full code. Nutritional: TPN Plan of care discussed with attending Dr. Arora. Cr Carey MD, PGY 2. Disclaimer: This note was dictated by speech recognition. Minor errors in college or university faculty member may be present due to voice recognition software. Attending Provider Attestation/Addendum No significant clinical change she is afebrile. Leukocytosis of 15,500, he has subphrenic drain. Patient is on TPN. Continue current management. Discussed with housestaff
--- NOTE | 2024-02-05 13:04 | PC.NURSE ---
0930 PATIENT IS EATING FOOD FROM HOME. HE STATES HE IS NOT EATING TO MUCH BECAUSE THE GI DOCTOR TOLD HIM NOT TO EAT LARGE MEALS. HE DENIES NAUSEA OR WHEN WHEN HE EATS. STATES HE TOLERATES WHAT HE EATS. PATIENT VOICED THAT HE IS IN PAIN BUT WHEN HE TELLS THE NURSES THEY SAY THEY WILL BE BACK, HE ASSUMES WITH PAIN, BUT THEY DONT RETURN. HE THINKS THAT THERE IS A LANGUAGE BARRIER. HIS TOLD HIM NOT TO COMPLAIN AND TRY TO REST. PATIENT POINTED TO THE BOARD WHICH HAS NORCO Q 6HRS WRITTEN. UPON CHECKING MAR HAS NO ORDER FOR NORCO. ONLY ORDER IS FOR TYLENOL FOR PAIN LEVEL 1-3. DR WAS CALLED AND INFORMED OF PAIN LEVEL AND THAT IT APPEARS HIS NORCO HAS . ORDER RESUMED AND PATIENT ENCOURAGE TO SPEAK UP A ND ASK FOR HIS MEDICATION. IF THE NURSE STATES WILL RETURN AND DOES NOT TO PRESS THE CALLIGHT TO REMIND HER.
[2024-02-05] MEDS: INSULIN LISPRO (AdmeLOG) 1 UNIT/0.01 ML UNIT SC (17:46)
[2024-02-05] MEDS: MIRTAZAPINE 15 MG TABLET PO (20:08)
[2024-02-05] MEDS: MAGNESIUM SULF IV (20:08)
[2024-02-05] MEDS: [UNRECOGNIZED DRUG - OTHER] IV (20:08)
--- NOTE | 2024-02-05 22:35 | PC.NURSE ---
MD Arsalan Bryant was notified that pt's left side abdomen is a bit swollen more than usual that I noticed tonight. MD Bryant went in the room to assess the patient and we asked the pt if this is new and he said yes . he also reports experiencing pain on that side. said to continue to monitor and he will let his senior know and dayshift know.
[2024-02-06] VITALS (13 sets, daily range): BP systolic 122–135; BP diastolic 82–90; PULSE 102–120; RESP 14–25; TEMP 36.1–36.7; O2SAT 97–98; BMI 32.3
[2024-02-06] MEDS: METOCLOPRAMIDE INJ 5 MG/ML VIAL 2 ML 10 MG IVP ×4 (05:49→23:53)
[2024-02-06] MEDS: HYDROcodone/APAP 5/325 TABLET 1 TAB PO (05:51)
[2024-02-06 07:40] LABS: Basophils % (Auto) 0 % (0-2.5); Eosinophils # (Auto) 0.3 Thou/mm3 (0.0-0.5); Eosinophils % (Auto) 3 % (0-10); Hematocrit 27.8 % (41.0-53.0); Hemoglobin 8.9 g/dL (13.5-16.0); Immature Granulocytes % (Auto) 2 % (0-0); Immature Granulocytes Auto 0.28 Thou/mm3 (0.00-0.00); Lymphocytes # (Auto) 3.8 Thou/mm3 (1.0-4.8); Lymphocytes % (Auto) 29 % (10-50); Mean Corpuscular Hemoglobin 27.1 pg (25.0-35.0); Mean Corpuscular Volume 85 fL (80-100); Monocytes # (Auto) 0.9 Thou/mm3 (0.0-0.8); Monocytes % (Auto) 7 % (0-12); Neutrophils # (Auto) 7.8 Thou/mm3 (1.8-7.7); Neutrophils % (Auto) 59 % (37-80); Nucleated Red Blood Cell % 0 /100 WBC (0); Platelet Count 371 Thou/mm3 (140-440); RDW Standard Deviation 50.3 fL (35.1-43.9); Red Blood Count 3.28 Miln/mm3 (4.50-5.90); White Blood Count 13.1 Thou/mm3 (3.8-10.6)
[2024-02-06 07:54] LABS: Alanine Aminotransferase 16 U/L (10-49); Albumin, Serum 3.3 gm/dL (3.5-5.0); Alkaline Phosphatase 118 U/L (46-116); Anion Gap 8 (7-16); Aspartate Amino Transferase 21 U/L (0-34); BUN/Creatinine Ratio 22 Ratio (12-20); Bilirubin,Total 0.3 mg/dL (0.3-1.2); Blood Urea Nitrogen 26 mg/dL (9-23); Calcium 7.5 mg/dL (8.3-10.6); Calcium (Corrected) 8.1 mg/dL (8.5-10.1); Carbon Dioxide 24.6 mMol/L (20.0-31.0); Chloride 102 mMol/L (98-107); Creatinine (Component) 1.2 mg/dL (0.6-1.3); Estimated Creatinine Clearance 78.5 mL/min (>60); Globulin 3.4 gm/dL (2.3-3.5); Glucose 94 mg/dL (74-106); Osmolality,Calculated 274 (275-295); Potassium 3.4 mMol/L (3.4-5.1); Sodium 135 mMol/L (136-145); Total Protein 6.7 gm/dL (5.7-8.2); eGFR > 60 See Note
--- NOTE | 2024-02-06 07:56 | XR_ITS ---
Examination: CT abdomen and pelvis without contrast. Coronal 3-D reconstructions. Sagittal 2-D reconstructions. Date and time of exam:February 06, 2024 at 0849 hrs. Indications: History subphrenic right lower abdomen abscess status post appendectomy, post drainage catheters CTDI: vol (mGy): 8.32 DLP: (mGycm): 534 Technique: Axial images of the abdomen have been obtained, 3 mm slice thickness Intravenous contrast material has not been administered. Low dose protocols were performed. One or more of the following dose reduction techniques were used; automated exposure control, adjustment of the mA and/or KV according to patient size, use of iterative reconstruction technique. Findings: Atelectasis versus pneumonia at the lung bases with small pleural effusions Small right subphrenic abscess measuring 14 mm in thickness, the abscess drainage catheter is in satisfactory position Spleen is not enlarged The right lower abdomen abscess has resolved, catheter is in satisfactory position No bowel obstruction Right ileostomy Midline abdominal surgery defect Bladder intact Impression: Small right phrenic abscess measuring 14 mm in thickness, the abscess drainage catheter is in satisfactory position The right lower abdomen abscess has resolved, the abscess drainage catheter is in satisfactory position
[2024-02-06] MEDS: LEVOFLOXACIN 250 MG TABLET PO (09:28)
[2024-02-06] MEDS: CITRIC ACID/SODIUM CITR 15 ML UDC (BICITRA) 30 ML PO (09:28)
[2024-02-06] MEDS: METOPROLOL SUCCINATE XL 25 MG TABCR 50 MG PO (09:28)
[2024-02-06] MEDS: CALCIUM CARBONATE 600 MG TABLET PO (11:57)
[2024-02-06] MEDS: POTASSIUM CHLORIDE 20 mEq TABCR 40 MEQ PO (11:57)
--- NOTE | 2024-02-06 12:31 | PD.RESPRO ---
Documentation for date of: 02/06/24 Subjective Subjective Interval history: Patient was seen at bedside this morning. No overnight events. Patient had a CT scan done today which showed resolution of one of his abscesses and decreased on the other 1 measuring 14 mm now. Pending on general surgeon for possible drainage removal as there is no drainage in bag. No other complaints at this time. Will do daily labs and increase his Mershon to 7.5 for better pain control management. Exam Vital Signs Temp Pulse Resp BP Pulse Ox O2 Del Method O2 Flow Rate 97.0 F 112 H 19 122/87 H 97 Room Air 3 02/06/24 08:25 02/06/24 09:28 02/06/24 08:25 02/06/24 09:28 02/06/24 08:25 02/06/24 08:25 02/05/24 04:46 FiO2 30 02/05/24 04:46 Narrative Exam General: A/O x3, no acute distress, resting in bed Eyes: PERRL, EOMI. Anicteric, vision grossly intact. Ears: No ear pain, no ear discharge, Hearing grossly intact. Nose: No nasal discharge. Mouth/Throat: Dry mucous membranes, no redness, no lesions. Neck: Neck supple, non-tender, no cervical lymphadenopathy. Lungs: Clear KYA to auscultation and percussion, No accessory muscle use. Cardio: Normal S1/S2, regular rhythm, no murmurs, no JVD Abdomen: Soft, Wound VAC in place with clean margins and healthy granulation tissue, no tenderness, no palpable masses, peristalsis present, no guarding or rebound. two drainages in place without any drainage. Extremities: Symmetrical, no significant deformities, no peripheral edema , non-tender, peripheral pulses presents. Skin: no lesions, warm to touch. Neuro: No focal neurological deficits. motor and sensory intact Psych: Cooperative, appropriate mood and effect. Objective Labs 02/06/24 07:25 02/06/24 07:25 Labs: Laboratory Results - last 24 hr 02/06/24 07:25 WBC 13.1 H RBC 3.28 L Hgb 8.9 L Hct 27.8 L MCV 85 MCH 27.1 MCHC 32.0 RDW Std Deviation 50.3 H Plt Count 371 D Neut % (Auto) 59 Lymph % (Auto) 29 [place] % (Auto) 7 Eos % (Auto) 3 Baso % (Auto) 0 Neut # (Auto) 7.8 H Lymph # (Auto) 3.8 [place] # (Auto) 0.9 H Eos # (Auto) 0.3 Baso # (Auto) 0.0 Immature Gran # (Auto) 0.28 H Absolute Nucleated RBC 0.00 Immature Gran % 2 H Nucleated RBC % 0 Sodium 135 L Potassium 3.4 Chloride 102 Carbon Dioxide 24.6 Anion Gap 8 BUN 26 H Creatinine 1.2 Estim Creat Clear Calc 78.5 eGFR > 60 BUN/Creatinine Ratio 22 H Glucose 94 Calculated Osmolality 274 L Calcium 7.5 L Corrected Calcium 8.1 L Total Bilirubin 0.3 AST 21 ALT 16 Alkaline Phosphatase 118 H Total Protein 6.7 Albumin 3.3 L Globulin 3.4 Albumin/Globulin Ratio 1.0 L ABG Interpretation ABG results: 12/21/23 12/24/23 12/25/23 15:50 19:45 02:34 ABG pH 7.40 7.23 L D ABG pCO2 40 56 H D ABG pO2 134 H 229 H D ABG HCO3 25 24 ABG O2 Saturation 99 H 100 H ABG Base Excess 0 -5 L VBG pH 7.48 VBG pCO2 35 L VBG pO2 56 VBG Base Excess 2 12/25/23 12/25/23 12/26/23 04:54 10:48 06:56 ABG pH 7.25 L 7.33 L 7.34 L ABG pCO2 52 H 45 43 ABG pO2 93 D 99 95 ABG HCO3 23 23 23 ABG O2 Saturation 97 98 98 ABG Base Excess -5 L -3 -2 VBG pH VBG pCO2 VBG pO2 VBG Base Excess 12/26/23 01/05/24 01/06/24 10:15 08:13 13:50 ABG pH 7.36 7.37 7.42 ABG pCO2 41 38 30 L ABG pO2 87 75 L 90 ABG HCO3 23 22 19 L ABG O2 Saturation 98 96 98 ABG Base Excess -2 -3 -5 L VBG pH VBG pCO2 VBG pO2 VBG Base Excess 01/06/24 01/07/24 01/07/24 21:44 00:30 04:35 ABG pH 7.12 L* D 7.22 L D 7.27 L ABG pCO2 69 H D 52 H D 45 ABG pO2 261 H D 161 H D 209 H D ABG HCO3 22 21 21 ABG O2 Saturation 100 H 99 H 100 H ABG Base Excess -7 L -6 L -6 L VBG pH VBG pCO2 VBG pO2 VBG Base Excess 01/08/24 01/09/24 01/09/24 04:50 04:14 15:49 ABG pH 7.24 L 7.26 L 7.27 L ABG pCO2 47 50 H 51 H ABG pO2 97 D 97 90 ABG HCO3 20 22 23 ABG O2 Saturation 98 98 97 ABG Base Excess -7 L -5 L -4 L VBG pH VBG pCO2 VBG pO2 VBG Base Excess 01/10/24 01/11/24 01/12/24 04:52 04:35 05:24 ABG pH 7.33 L 7.34 L 7.31 L ABG pCO2 43 43 49 H ABG pO2 101 99 106 ABG HCO3 23 23 25 ABG O2 Saturation 98 98 98 ABG Base Excess -3 -3 -2 VBG pH VBG pCO2 VBG pO2 VBG Base Excess Quality Measures Quality Measures VTE prophylaxis (heparin subcutaneously) Assessment & Plan Assessment Current Active Medications: Generic Name Dose Route Start Last Admin Trade Name Freq PRN Reason Stop Dose Admin Acetaminophen 650 mg 01/24/24 23:23 02/03/24 21:34 Acetaminophen 325 Mg Tablet PO 02/21/24 20:48 650 mg Q6HR PRN Administration Pain Scale 1-3 or Fever >100.3 Hydrocodone Bitart/Acetaminophen 1 tab 02/06/24 12:21 Hydrocodone/Apap 7.5/325 Tablet PO 02/11/24 12:20 Q4HR PRN PAIN SCALE 4-10(Mod-Sev Amlodipine Besylate 10 mg 01/13/24 12:30 01/25/24 09:00 Amlodipine Besylate 5 Mg Tablet PO 02/12/24 12:29 10 mg QDAY TAL Administration Glucagon 1 mg 01/07/24 11:34 Glucagon Inj 1 Mg Vial IM Q15MIN PRN BG <70, and no IV access Fat Emulsion-[place] Oil/Soybean Oil 500 mls @ 32 mls/hr 01/28/24 18:00 02/04/24 17:50 Clinopid 20% Iv IV 02/27/24 17:59 32 mls/hr We@1800 TAL Administration Multivitamins/Minerals 10 ml/ 1,022 mls @ 50 mls/hr 02/05/24 20:09 02/05/24 20:08 Potassium Acetate 20 meq/ IV 02/06/24 16:35 50 mls/hr Magnesium Sulfate 1 gm/ Amino .[id number] TAL Administration Acids Protocol Calcium Gluconate 2 gm/ 1,040 mls @ 50 mls/hr 02/06/24 16:36 Potassium Acetate 40 meq/ IV 02/07/24 13:23 Amino Acids QDAY ONE Insulin Human Lispro 0 unit 01/28/24 00:00 02/06/24 11:37 Insulin Lispro (Admelog) 1 Unit/0.01 Ml Unit SC 02/27/24 00:00 Not Given Q6HR TAL Protocol Levofloxacin 250 mg 02/03/24 09:00 02/06/24 09:28 Levofloxacin 250 Mg Tablet PO 02/10/24 08:59 250 mg QDAY TAL Administration Metoclopramide HCl 10 mg 01/29/24 20:54 02/06/24 11:57 Metoclopramide Inj 5 Mg/Ml Vial 2 Ml IVP 02/28/24 20:53 10 mg Q6HR TAL Administration Protocol Metoprolol Succinate 50 mg 01/26/24 09:00 02/06/24 09:28 Metoprolol Succinate Xl 25 Mg Tabcr PO 02/25/24 08:59 50 mg QDAY TAL Administration Mirtazapine 15 mg 01/23/24 21:00 02/05/24 20:08 Mirtazapine 15 Mg Tablet PO 02/22/24 20:59 15 mg HS TAL Administration Plan 43-year-old male with no significant past medical history who was admitted to the hospital by general surgery on 12/21/2023 for acute perforated appendicitis with multiple postop complications. #Sepsis likely secondary to acute perforated appendicitis #Acute perforated appendicitis #Small bowel perforation s/p ileostomy #Peritonitis #Subcapsular abscess s/p CT-guided drain placement #Subphrenic abscess, R ?Initially patient met SIRS 2 out of 4 with leukocytosis and tachycardia ?Patient underwent multiple surgical procedures including laparoscopic appendectomy on day of admission (12/21/2023), 2 ex laps (12/25/2023 and 01/06/2024), and additional secondary closure of abdomen incision (01/01/2024). ?Multiple blood cultures, urine cultures, sputum cultures, and abdominal wound cultures have come back negative ?Abdomen/pelvis CT on 01/12/2024 showed localized fluid collection on the right lower abdomen consistent with an abscess ?Patient had percutaneous drainage catheter taken out by IR as per general surgeon ?Patient has not been having good oral intake therefore TPN will be continued as per general surgeon -DC'd vancomycin (day 9) and Zosyn (day 8 of second treatment) -WBC 13.1 and still tachycardic -CT abdomen/pelvis (01/18/24) showed Right subphrenic abscess which is very small in thickness, 13 mm and abscess below the liver measures 8.4 x 11.5 x 3.8 cm ? CT abdomen/pelvis 02/06/2024 showed right lower abdomen abscess resolved and right perinephric abscess decreased measuring 14 mm -IR placed pleural drainage again on 01/20/2024 and additional drainage today [02/02/2024-] -DC'd meropenem [01/18/2024-01/26/2024] -DC'd Flagyl [01/26/24-02/02/2024] Plan: -Continue TPN as per Dr. Rubio, recommend to continue to titrate down as patient is having PO intake. -Recommend to take out drainage ?Recommend to encourage oral intake and advance diet as tolerated. -Recommend to follow ID recommendations on Antibiotic regimen levaquin now P.O [02/03/2024-] [IV -->01/26/24-02/03/2024] ?Recommend wound care. ?Will continue to monitor for any spiking any fever or elevated WBC. #ANITHA #Likely ATN #NAGMA ?Creatinine improving to 1.2, bicarb 24.6 -Likely ATN given multiple CT w contrast -Nephrology ordered nuclear medicine renal scan showed no renal function., as per nephrology this is likely ATN and patient will not need HD for now. Plan: -Recommend encourage oral hydration -DC'd Bicitra ?Avoid nephrotoxic agents. ?Renally dose medications. -Nephrology consulted, appreciate recommendations ?Will continue to monitor. #Sinus Tachycardia #Hypertension. -Possibly related pain from recent surgeries, less likely infectious -EKGs in december 2023 reveal sinus tachycardia -Discontinued amlodipine. Plan: -Continue metoprolol succinate to 50 mg daily. #Irritant contact dermatitis. -Patient developed an inner thigh rash most likely due to friction Plan: -Will continue to monitor #Normocytic normochromic anemia. ?Hgb 8.9 ?Most likely a component of some blood loss given multiple surgical procedures and hemodilution Plan: ?Recommend to transfuse if hemoglobin less than 7 ?Will continue to monitor #Hypokalemia, resolved #Hypomagnesemia #Hyponatremia #hypocalcemia #Hyperphosphatemia -Potassium 3.4, sodium 135, Calcium 8.1 Plan: -Recommend to replete as necessary -Will continue to monitor #Acute hypoxic respiratory failure, resolved. #Pleural effusion, resolved. ?Patient was intubated in the ICU and was successfully extubated on 01/12/2024 ?Chest x-ray on 01/12/2024 showed no pneumonia and no right pleural fluid ?Patient had chest tube taken out by general surgeon -Will assess possibility to take chest tube out ?Checks x-ray 01/15/24 showed no pleural fluid Plan: ?Will continue to monitor Thank you for allowing us to be part of the patient's care. Disposition: Patient seen in telemetry, monitoring ADIS's, pain management, and oral intake. Diet:Regular GI prophylaxis: protonix. DVT prophylaxis: heparin sc. Code: Full code. Nutritional: TPN Case disclosed with Attending Dr. Karissa Harp PGY1 Attending Provider Attestation/Addendum I have examined the patient, reviewed labs and imaging findings, discussed the case with the resident(s), and reviewed entered orders. I agree with the plan of care as outlined in this note, with these additional summaries/recommendations: Patient seen at bedside. No acute overnight events. Today patient reports increased abdominal pain. We will increase as needed Mershon from [address] abdomen and pelvis today shows significant improvement in right phrenic abscess. Abscess now measuring 14 mm in thickness which is down from 3.5 cm and right lower abdominal abscess has completely resolved. Continue Levaquin. General surgery infectious disease following. Wound VAC and intra-abdominal drain in place. Continue to wean from TPN as patient's appetite is improving. On daily metoprolol for persistent sinus tachycardia although anticipate improvement with resolution of intra-abdominal infection. Leukocytosis improved today although labile and continue antibiotics. All culture results negative to date. ANITHA relatively resolved. Creatinine 1.2 and BUN 26 today. DC bictira. Patient updated on the plan and in agreement. Repeat chemistry and hematology panel in AM. Continue insulin sliding scale with Accu-Cheks for history of diabetes mellitus type 2 although likely can DC in coming days as patient has not required any coverage and A1C well controlled at 5.8%. Thank you for allowing us to participate in this patient's care, we will continue to follow the patient with you. Dr. Hancock
--- NOTE | 2024-02-06 13:04 | PD.SURPROG ---
Documentation for date of: 02/06/24 Subjective Subjective Brief History: As above Narrative: Patient's condition is essentially unchanged Exam Vital Signs Temp Pulse Resp BP Pulse Ox O2 Del Method O2 Flow Rate 98.0 F 107 H 14 125/84 98 Room Air 3 02/06/24 12:48 02/06/24 12:48 02/06/24 12:48 02/06/24 12:48 02/06/24 12:48 02/06/24 12:48 02/05/24 04:46 FiO2 30 02/05/24 04:46 Vital signs are normal Routine Abdominal Exam Comments: Drainage in the abdominal abscess catheter is very minimal Results Results: Laboratory Laboratory Narrative: WBC is around 13,00. Renal functions are normal Results: Imaging Imaging narrative: CT scan was performed this morning which showed decrease in the size of the collection below the diaphragm as well as in the right gutter Assessment & Plan Assessment Additional comments: Impression: Resolving intraperitoneal abscess Plan Plan: We shall pull the catheter out today. We shall plan for discharge next week Procedures Procedures Exploratory laparotomy and drainage of the subcutaneous infection and wound VAC application
--- NOTE | 2024-02-06 13:15 | PC.NURSE ---
Dr. Weiss pulled out accordion drains at bedside. Patient tolerate well.
[2024-02-06] MEDS: HYDROcodone/APAP 7.5/325 TABLET 1 TAB PO ×3 (13:39→23:53)
[2024-02-06] MEDS: INSULIN LISPRO (AdmeLOG) 1 UNIT/0.01 ML UNIT SC (17:24)
[2024-02-06] MEDS: [UNRECOGNIZED DRUG - OTHER] IV (17:46)
[2024-02-06] MEDS: AMINO ACID IV (17:46)
[2024-02-06] MEDS: CALCIUM GLUCONATE IV (17:46)
--- NOTE | 2024-02-06 19:21 | PD.IMPROG ---
Documentation for date of: 02/06/24 Subjective Subjective Interval history: Tolerating p.o. diet Exam Vital Signs Temp Pulse Resp BP Pulse Ox O2 Del Method O2 Flow Rate 97.8 F 113 H 25 H 125/83 97 Room Air 3 02/06/24 17:00 02/06/24 17:00 02/06/24 17:00 02/06/24 17:00 02/06/24 17:00 02/06/24 17:00 02/05/24 04:46 FiO2 30 02/05/24 04:46 Objective Labs 02/06/24 07:25 02/06/24 07:25 Labs: Laboratory Results - last 24 hr 02/06/24 07:25 WBC 13.1 H RBC 3.28 L Hgb 8.9 L Hct 27.8 L MCV 85 MCH 27.1 MCHC 32.0 RDW Std Deviation 50.3 H Plt Count 371 D Neut % (Auto) 59 Lymph % (Auto) 29 [place] % (Auto) 7 Eos % (Auto) 3 Baso % (Auto) 0 Neut # (Auto) 7.8 H Lymph # (Auto) 3.8 [place] # (Auto) 0.9 H Eos # (Auto) 0.3 Baso # (Auto) 0.0 Immature Gran # (Auto) 0.28 H Absolute Nucleated RBC 0.00 Immature Gran % 2 H Nucleated RBC % 0 Sodium 135 L Potassium 3.4 Chloride 102 Carbon Dioxide 24.6 Anion Gap 8 BUN 26 H Creatinine 1.2 Estim Creat Clear Calc 78.5 eGFR > 60 BUN/Creatinine Ratio 22 H Glucose 94 Calculated Osmolality 274 L Calcium 7.5 L Corrected Calcium 8.1 L Total Bilirubin 0.3 AST 21 ALT 16 Alkaline Phosphatase 118 H Total Protein 6.7 Albumin 3.3 L Globulin 3.4 Albumin/Globulin Ratio 1.0 L Impressions Impression: # Nausea vomiting improved # Gastric motility disorder # Gastroparesis Continue current management ABG Interpretation ABG results: 12/21/23 12/24/23 12/25/23 15:50 19:45 02:34 ABG pH 7.40 7.23 L D ABG pCO2 40 56 H D ABG pO2 134 H 229 H D ABG HCO3 25 24 ABG O2 Saturation 99 H 100 H ABG Base Excess 0 -5 L VBG pH 7.48 VBG pCO2 35 L VBG pO2 56 VBG Base Excess 2 12/25/23 12/25/23 12/26/23 04:54 10:48 06:56 ABG pH 7.25 L 7.33 L 7.34 L ABG pCO2 52 H 45 43 ABG pO2 93 D 99 95 ABG HCO3 23 23 23 ABG O2 Saturation 97 98 98 ABG Base Excess -5 L -3 -2 VBG pH VBG pCO2 VBG pO2 VBG Base Excess 12/26/23 01/05/24 01/06/24 10:15 08:13 13:50 ABG pH 7.36 7.37 7.42 ABG pCO2 41 38 30 L ABG pO2 87 75 L 90 ABG HCO3 23 22 19 L ABG O2 Saturation 98 96 98 ABG Base Excess -2 -3 -5 L VBG pH VBG pCO2 VBG pO2 VBG Base Excess 01/06/24 01/07/24 01/07/24 21:44 00:30 04:35 ABG pH 7.12 L* D 7.22 L D 7.27 L ABG pCO2 69 H D 52 H D 45 ABG pO2 261 H D 161 H D 209 H D ABG HCO3 22 21 21 ABG O2 Saturation 100 H 99 H 100 H ABG Base Excess -7 L -6 L -6 L VBG pH VBG pCO2 VBG pO2 VBG Base Excess 01/08/24 01/09/24 01/09/24 04:50 04:14 15:49 ABG pH 7.24 L 7.26 L 7.27 L ABG pCO2 47 50 H 51 H ABG pO2 97 D 97 90 ABG HCO3 20 22 23 ABG O2 Saturation 98 98 97 ABG Base Excess -7 L -5 L -4 L VBG pH VBG pCO2 VBG pO2 VBG Base Excess 01/10/24 01/11/24 01/12/24 04:52 04:35 05:24 ABG pH 7.33 L 7.34 L 7.31 L ABG pCO2 43 43 49 H ABG pO2 101 99 106 ABG HCO3 23 23 25 ABG O2 Saturation 98 98 98 ABG Base Excess -3 -3 -2 VBG pH VBG pCO2 VBG pO2 VBG Base Excess Assessment & Plan A&P Narrative abd perforation at surgery over a month ago now delayed wound closure done 12/31/23 dm II. a1c not too bad ckd, with dany changed Friday to renally dosed levaquin/flagyl and stopped flagyl 02/01 changed to po for friday home when off tpn and when ready otherwise. will see again prn, duration of rx is anyone's guess as we have bombed past the usual rx for peritonitis with perforation.suggest another 5d at home if nausea improves. home ok at discretion of surgery. f/u with surgery, no need for outpt ID f/u after release. Time Spent With Patient Time: Total time spent is greater than 50% in coordination of care (as documented) at patient's floor/unit and/or counseling patient:
[2024-02-06] MEDS: MIRTAZAPINE 15 MG TABLET PO (21:35)
[2024-02-07] VITALS (13 sets, daily range): BP systolic 115–130; BP diastolic 74–86; PULSE 100–119; RESP 14–22; TEMP 36.2–36.8; O2SAT 97–98
[2024-02-07] MEDS: HYDROcodone/APAP 7.5/325 TABLET 1 TAB PO ×3 (05:33→18:33)
[2024-02-07] MEDS: METOCLOPRAMIDE INJ 5 MG/ML VIAL 2 ML 10 MG IVP ×3 (05:33→18:33)
[2024-02-07 06:50] LABS: Basophils % (Auto) 0 % (0-2.5); Eosinophils # (Auto) 0.2 Thou/mm3 (0.0-0.5); Eosinophils % (Auto) 2 % (0-10); Hematocrit 28.8 % (41.0-53.0); Hemoglobin 9.4 g/dL (13.5-16.0); Immature Granulocytes % (Auto) 2 % (0-0); Immature Granulocytes Auto 0.21 Thou/mm3 (0.00-0.00); Lymphocytes % (Auto) 33 % (10-50); Mean Corpuscular HGB Conc 32.6 g/dl (31.0-37.0); Mean Corpuscular Hemoglobin 27.2 pg (25.0-35.0); Mean Corpuscular Volume 83 fL (80-100); Monocytes # (Auto) 0.9 Thou/mm3 (0.0-0.8); Monocytes % (Auto) 8 % (0-12); Neutrophils # (Auto) 6.8 Thou/mm3 (1.8-7.7); Neutrophils % (Auto) 56 % (37-80); Nucleated Red Blood Cell % 0 /100 WBC (0); Platelet Count 363 Thou/mm3 (140-440); RDW Standard Deviation 49.3 fL (35.1-43.9); Red Blood Count 3.46 Miln/mm3 (4.50-5.90); White Blood Count 12.2 Thou/mm3 (3.8-10.6)
[2024-02-07 07:09] LABS: Alanine Aminotransferase 15 U/L (10-49); Albumin, Serum 3.5 gm/dL (3.5-5.0); Alkaline Phosphatase 125 U/L (46-116); Anion Gap 6 (7-16); Aspartate Amino Transferase 11 U/L (0-34); BUN/Creatinine Ratio 22 Ratio (12-20); Bilirubin,Total 0.4 mg/dL (0.3-1.2); Blood Urea Nitrogen 24 mg/dL (9-23); Calcium 8.5 mg/dL (8.3-10.6); Calcium (Corrected) 8.9 mg/dL (8.5-10.1); Carbon Dioxide 23.3 mMol/L (20.0-31.0); Chloride 104 mMol/L (98-107); Creatinine (Component) 1.1 mg/dL (0.6-1.3); Estimated Creatinine Clearance 85.3 mL/min (>60); Globulin 3.4 gm/dL (2.3-3.5); Glucose 106 mg/dL (74-106); Magnesium 1.3 mg/dL (1.6-2.6); Osmolality,Calculated 270 (275-295); Potassium 3.6 mMol/L (3.4-5.1); Sodium 133 mMol/L (136-145); Total Protein 6.9 gm/dL (5.7-8.2); eGFR > 60 See Note
[2024-02-07] MEDS: Magnesium Sulfate 4 GM Ivpb 4 GM/50 ML BAG IV (08:10)
[2024-02-07] MEDS: LEVOFLOXACIN 250 MG TABLET PO (08:33)
[2024-02-07] MEDS: METOPROLOL SUCCINATE XL 25 MG TABCR 50 MG PO (08:33)
--- NOTE | 2024-02-07 08:58 | PD.RESPRO ---
Documentation for date of: 02/07/24 Subjective Subjective Interval history: Patient was seen at bedside this morning. No overnight events. Patient had all of his drainages taken out yesterday. No complaints at this time. He is still tolerating diet well and general surgery plans for probable DC in the next week. Exam Vital Signs Temp Pulse Resp BP Pulse Ox O2 Del Method O2 Flow Rate 97.4 F 106 H 18 115/80 97 Room Air 3 02/07/24 08:19 02/07/24 08:33 02/07/24 08:19 02/07/24 08:33 02/07/24 08:19 02/07/24 08:19 02/05/24 04:46 FiO2 30 02/05/24 04:46 Narrative Exam General: A/O x3, no acute distress, resting in bed Eyes: PERRL, EOMI. Anicteric, vision grossly intact. Ears: No ear pain, no ear discharge, Hearing grossly intact. Nose: No nasal discharge. Mouth/Throat: Dry mucous membranes, no redness, no lesions. Neck: Neck supple, non-tender, no cervical lymphadenopathy. Lungs: Clear KYA to auscultation and percussion, No accessory muscle use. Cardio: Normal S1/S2, regular rhythm, no murmurs, no JVD Abdomen: Soft, Wound VAC in place with clean margins and healthy granulation tissue, no tenderness, no palpable masses, peristalsis present, no guarding or rebound. Clean dressing over sites drainages were taken out. Extremities: Symmetrical, no significant deformities, no peripheral edema , non-tender, peripheral pulses presents. Skin: no lesions, warm to touch. Neuro: No focal neurological deficits. motor and sensory intact Psych: Cooperative, appropriate mood and effect. Objective Labs 02/07/24 05:27 02/07/24 05:27 Labs: Laboratory Results - last 24 hr 02/07/24 05:27 WBC 12.2 H RBC 3.46 L Hgb 9.4 L Hct 28.8 L MCV 83 MCH 27.2 MCHC 32.6 RDW Std Deviation 49.3 H Plt Count 363 Neut % (Auto) 56 Lymph % (Auto) 33 [place] % (Auto) 8 Eos % (Auto) 2 Baso % (Auto) 0 Neut # (Auto) 6.8 Lymph # (Auto) 4.0 [place] # (Auto) 0.9 H Eos # (Auto) 0.2 Baso # (Auto) 0.0 Immature Gran # (Auto) 0.21 H Absolute Nucleated RBC 0.00 Immature Gran % 2 H Nucleated RBC % 0 Sodium 133 L Potassium 3.6 Chloride 104 Carbon Dioxide 23.3 Anion Gap 6 L BUN 24 H Creatinine 1.1 Estim Creat Clear Calc 85.3 eGFR > 60 BUN/Creatinine Ratio 22 H Glucose 106 Calculated Osmolality 270 L Calcium 8.5 Corrected Calcium 8.9 Magnesium 1.3 L Total Bilirubin 0.4 AST 11 ALT 15 Alkaline Phosphatase 125 H Total Protein 6.9 Albumin 3.5 Globulin 3.4 Albumin/Globulin Ratio 1.0 L ABG Interpretation ABG results: 12/21/23 12/24/23 12/25/23 15:50 19:45 02:34 ABG pH 7.40 7.23 L D ABG pCO2 40 56 H D ABG pO2 134 H 229 H D ABG HCO3 25 24 ABG O2 Saturation 99 H 100 H ABG Base Excess 0 -5 L VBG pH 7.48 VBG pCO2 35 L VBG pO2 56 VBG Base Excess 2 12/25/23 12/25/23 12/26/23 04:54 10:48 06:56 ABG pH 7.25 L 7.33 L 7.34 L ABG pCO2 52 H 45 43 ABG pO2 93 D 99 95 ABG HCO3 23 23 23 ABG O2 Saturation 97 98 98 ABG Base Excess -5 L -3 -2 VBG pH VBG pCO2 VBG pO2 VBG Base Excess 12/26/23 01/05/24 01/06/24 10:15 08:13 13:50 ABG pH 7.36 7.37 7.42 ABG pCO2 41 38 30 L ABG pO2 87 75 L 90 ABG HCO3 23 22 19 L ABG O2 Saturation 98 96 98 ABG Base Excess -2 -3 -5 L VBG pH VBG pCO2 VBG pO2 VBG Base Excess 01/06/24 01/07/24 01/07/24 21:44 00:30 04:35 ABG pH 7.12 L* D 7.22 L D 7.27 L ABG pCO2 69 H D 52 H D 45 ABG pO2 261 H D 161 H D 209 H D ABG HCO3 22 21 21 ABG O2 Saturation 100 H 99 H 100 H ABG Base Excess -7 L -6 L -6 L VBG pH VBG pCO2 VBG pO2 VBG Base Excess 01/08/24 01/09/24 01/09/24 04:50 04:14 15:49 ABG pH 7.24 L 7.26 L 7.27 L ABG pCO2 47 50 H 51 H ABG pO2 97 D 97 90 ABG HCO3 20 22 23 ABG O2 Saturation 98 98 97 ABG Base Excess -7 L -5 L -4 L VBG pH VBG pCO2 VBG pO2 VBG Base Excess 01/10/24 01/11/24 01/12/24 04:52 04:35 05:24 ABG pH 7.33 L 7.34 L 7.31 L ABG pCO2 43 43 49 H ABG pO2 101 99 106 ABG HCO3 23 23 25 ABG O2 Saturation 98 98 98 ABG Base Excess -3 -3 -2 VBG pH VBG pCO2 VBG pO2 VBG Base Excess Quality Measures Quality Measures VTE prophylaxis (heparin subcutaneously) Assessment & Plan Assessment Current Active Medications: Generic Name Dose Route Start Last Admin Trade Name Ciaranq PRN Reason Stop Dose Admin Acetaminophen 650 mg 01/24/24 23:23 02/03/24 21:34 Acetaminophen 325 Mg Tablet PO 02/21/24 20:48 650 mg Q6HR PRN Administration Pain Scale 1-3 or Fever >100.3 Hydrocodone Bitart/Acetaminophen 1 tab 02/06/24 12:21 02/07/24 05:33 Hydrocodone/Apap 7.5/325 Tablet PO 02/11/24 12:20 1 tab Q4HR PRN Administration PAIN SCALE 4-10(Mod-Sev Amlodipine Besylate 10 mg 01/13/24 12:30 01/25/24 09:00 Amlodipine Besylate 5 Mg Tablet PO 02/12/24 12:29 10 mg QDAY TAL Administration Fat Emulsion-[place] Oil/Soybean Oil 500 mls @ 32 mls/hr 01/28/24 18:00 02/04/24 17:50 Clinopid 20% Iv IV 02/27/24 17:59 32 mls/hr We@1800 TAL Administration Calcium Gluconate 2 gm/ Amino 1,020 mls @ 49.038 mls/hr 02/06/24 17:00 02/06/24 17:46 Acids IV 02/07/24 13:23 49.038 mls/hr QDAY ONE Administration Magnesium Sulfate 4 gm in 50 mls @ 12.5 mls/hr 02/07/24 07:18 02/07/24 08:10 Magnesium Sulfate Ivpb IV 02/07/24 11:17 12.5 mls/hr X1 ONE Administration Insulin Human Lispro 0 unit 01/28/24 00:00 02/07/24 05:39 Insulin Lispro (Admelog) 1 Unit/0.01 Ml Unit SC 02/27/24 00:00 Not Given Q6HR TAL Protocol Levofloxacin 250 mg 02/03/24 09:00 02/07/24 08:33 Levofloxacin 250 Mg Tablet PO 02/10/24 08:59 250 mg QDAY TAL Administration Metoclopramide HCl 10 mg 01/29/24 20:54 02/07/24 05:33 Metoclopramide Inj 5 Mg/Ml Vial 2 Ml IVP 02/28/24 20:53 10 mg Q6HR TAL Administration Protocol Metoprolol Succinate 50 mg 01/26/24 09:00 02/07/24 08:33 Metoprolol Succinate Xl 25 Mg Tabcr PO 02/25/24 08:59 50 mg QDAY TAL Administration Mirtazapine 15 mg 01/23/24 21:00 02/06/24 21:35 Mirtazapine 15 Mg Tablet PO 02/22/24 20:59 15 mg HS TAL Administration Plan 43-year-old male with no significant past medical history who was admitted to the hospital by general surgery on 12/21/2023 for acute perforated appendicitis with multiple postop complications. #Sepsis likely secondary to acute perforated appendicitis #Acute perforated appendicitis #Small bowel perforation s/p ileostomy #Peritonitis #Subcapsular abscess s/p CT-guided drain placement #Subphrenic abscess, R ?Initially patient met SIRS 2 out of 4 with leukocytosis and tachycardia ?Patient underwent multiple surgical procedures including laparoscopic appendectomy on day of admission (12/21/2023), 2 ex laps (12/25/2023 and 01/06/2024), and additional secondary closure of abdomen incision (01/01/2024). ?Multiple blood cultures, urine cultures, sputum cultures, and abdominal wound cultures have come back negative ?Abdomen/pelvis CT on 01/12/2024 showed localized fluid collection on the right lower abdomen consistent with an abscess ?Patient had percutaneous drainage catheter taken out by IR as per general surgeon ?Patient has not been having good oral intake therefore TPN will be continued as per general surgeon -DC'd vancomycin (day 9) and Zosyn (day 8 of second treatment) -WBC 12.2 and still tachycardic -CT abdomen/pelvis (01/18/24) showed Right subphrenic abscess which is very small in thickness, 13 mm and abscess below the liver measures 8.4 x 11.5 x 3.8 cm ? CT abdomen/pelvis 02/06/2024 showed right lower abdomen abscess resolved and right perinephric abscess decreased measuring 14 mm -IR placed pleural drainage again on 01/20/2024 and additional drainage today [02/02/2024-] -DC'd meropenem [01/18/2024-01/26/2024] -DC'd Flagyl [01/26/24-02/02/2024] -Drainages taken out 02/06/2024 Plan: -Continue TPN as per Dr. Rubio, recommend to continue to titrate down and discontinue as patient is having PO intake. ?Recommend to encourage oral intake and advance diet as tolerated. -Recommend to follow ID recommendations on Antibiotic regimen levaquin now P.O [02/03/2024-] [IV -->01/26/24-02/03/2024] ?Recommend wound care. ?Will continue to monitor for any spiking any fever or elevated WBC. #ANITHA #Likely ATN #NAGMA ?Creatinine improving to 1.1, bicarb 23.3 -Likely ATN given multiple CT w contrast -Nephrology ordered nuclear medicine renal scan showed no renal function., as per nephrology this is likely ATN and patient will not need HD for now. -DC'd Bicitra Plan: -Recommend encourage oral hydration ?Avoid nephrotoxic agents. ?Renally dose medications. -Nephrology consulted, appreciate recommendations ?Will continue to monitor. #Sinus Tachycardia #Hypertension. -Possibly related pain from recent surgeries, less likely infectious -EKGs in december 2023 reveal sinus tachycardia -Discontinued amlodipine. Plan: -Continue metoprolol succinate to 50 mg daily. #Irritant contact dermatitis. -Patient developed an inner thigh rash most likely due to friction Plan: -Will continue to monitor #Normocytic normochromic anemia. ?Hgb 9.4 ?Most likely a component of some blood loss given multiple surgical procedures and hemodilution Plan: ?Recommend to transfuse if hemoglobin less than 7 ?Will continue to monitor #Hypokalemia, resolved #Hypomagnesemia #Hyponatremia #hypocalcemia #Hyperphosphatemia -Potassium 3.6, sodium 133, Calcium 8.9, Mg 1.3 Plan: -Recommend to replete as necessary -Will continue to monitor #Acute hypoxic respiratory failure, resolved. #Pleural effusion, resolved. ?Patient was intubated in the ICU and was successfully extubated on 01/12/2024 ?Chest x-ray on 01/12/2024 showed no pneumonia and no right pleural fluid ?Patient had chest tube taken out by general surgeon -Will assess possibility to take chest tube out ?Checks x-ray 01/15/24 showed no pleural fluid Plan: ?Will continue to monitor Thank you for allowing us to be part of the patient's care. Disposition: Patient seen in telemetry, monitoring ADIS's, pain management, and oral intake. Diet:Regular GI prophylaxis: protonix. DVT prophylaxis: heparin sc. Code: Full code. Nutritional: TPN Case disclosed with Attending Dr. Karissa Harp PGY1 Attending Provider Attestation/Addendum I have examined the patient, reviewed labs and imaging findings, discussed the case with the resident(s), and reviewed entered orders. I agree with the plan of care as outlined in this note, with these additional summaries/recommendations: Patient seen at bedside. No acute overnight events. Today patient reports improvement in abdominal pain with increased norco dose. He reports he tolerated breakfast and his appetite continues to improve daily. Patient had intra-abdominal VANESSA drains removed yesterday. Repeat CT abdomen and pelvis showed significant improvement in right phrenic abscess. Abscess now measuring 14 mm in thickness which is down from 3.5 cm and right lower abdominal abscess has completely resolved. Continue Levaquin. General surgery & infectious disease following. Wound VAC in place. Continue to wean from TPN as patient's appetite is improving and likely can DC tomorrow 02/07 if okay?d by surgery. On daily metoprolol for persistent sinus tachycardia although anticipate improvement with resolution of intra-abdominal infection. Leukocytosis improved today although labile and continue antibiotics. All culture results negative to date. ANITHA relatively resolved. DC bictira. Patient updated on the plan and in agreement. Repeat chemistry and hematology panel in AM. Discontinue insulin sliding scale as patient is borderline pre diabetic and has only required 1U insulin over the last 48 hours. General surgery planning on discharge as soon as this week. Thank you for allowing us to participate in this patient's care, we will continue to follow the patient with you. Dr. Hancock
[2024-02-07 10:08] LABS: Phosphorous 5.3 mg/dL (2.4-5.1)
[2024-02-07] MEDS: POTASSIUM ACET IV (15:02)
[2024-02-07] MEDS: SODIUM ACET ADDITIVE IV (15:02)
[2024-02-07] MEDS: [UNRECOGNIZED DRUG - OTHER] IV (15:02)
--- NOTE | 2024-02-07 17:46 | PD.IMPROG ---
Documentation for date of: 02/07/24 Subjective Subjective Interval history: Tolerating p.o. diet Exam Vital Signs Temp Pulse Resp BP Pulse Ox O2 Del Method O2 Flow Rate 98.1 F 109 H 14 127/82 97 Room Air 3 02/07/24 16:14 02/07/24 16:14 02/07/24 16:14 02/07/24 16:14 02/07/24 16:14 02/07/24 16:14 02/05/24 04:46 FiO2 30 02/05/24 04:46 Objective Labs 02/07/24 05:27 02/07/24 05:27 Labs: Laboratory Results - last 24 hr 02/07/24 05:27 WBC 12.2 H RBC 3.46 L Hgb 9.4 L Hct 28.8 L MCV 83 MCH 27.2 MCHC 32.6 RDW Std Deviation 49.3 H Plt Count 363 Neut % (Auto) 56 Lymph % (Auto) 33 [place] % (Auto) 8 Eos % (Auto) 2 Baso % (Auto) 0 Neut # (Auto) 6.8 Lymph # (Auto) 4.0 [place] # (Auto) 0.9 H Eos # (Auto) 0.2 Baso # (Auto) 0.0 Immature Gran # (Auto) 0.21 H Absolute Nucleated RBC 0.00 Immature Gran % 2 H Nucleated RBC % 0 Sodium 133 L Potassium 3.6 Chloride 104 Carbon Dioxide 23.3 Anion Gap 6 L BUN 24 H Creatinine 1.1 Estim Creat Clear Calc 85.3 eGFR > 60 BUN/Creatinine Ratio 22 H Glucose 106 Calculated Osmolality 270 L Calcium 8.5 Corrected Calcium 8.9 Phosphorus 5.3 H Magnesium 1.3 L Total Bilirubin 0.4 AST 11 ALT 15 Alkaline Phosphatase 125 H Total Protein 6.9 Albumin 3.5 Globulin 3.4 Albumin/Globulin Ratio 1.0 L Impressions Impression: # Gastroparesis # Gastric motility disorder Continue current management ABG Interpretation ABG results: 12/21/23 12/24/23 12/25/23 15:50 19:45 02:34 ABG pH 7.40 7.23 L D ABG pCO2 40 56 H D ABG pO2 134 H 229 H D ABG HCO3 25 24 ABG O2 Saturation 99 H 100 H ABG Base Excess 0 -5 L VBG pH 7.48 VBG pCO2 35 L VBG pO2 56 VBG Base Excess 2 12/25/23 12/25/23 12/26/23 04:54 10:48 06:56 ABG pH 7.25 L 7.33 L 7.34 L ABG pCO2 52 H 45 43 ABG pO2 93 D 99 95 ABG HCO3 23 23 23 ABG O2 Saturation 97 98 98 ABG Base Excess -5 L -3 -2 VBG pH VBG pCO2 VBG pO2 VBG Base Excess 12/26/23 01/05/24 01/06/24 10:15 08:13 13:50 ABG pH 7.36 7.37 7.42 ABG pCO2 41 38 30 L ABG pO2 87 75 L 90 ABG HCO3 23 22 19 L ABG O2 Saturation 98 96 98 ABG Base Excess -2 -3 -5 L VBG pH VBG pCO2 VBG pO2 VBG Base Excess 01/06/24 01/07/24 01/07/24 21:44 00:30 04:35 ABG pH 7.12 L* D 7.22 L D 7.27 L ABG pCO2 69 H D 52 H D 45 ABG pO2 261 H D 161 H D 209 H D ABG HCO3 22 21 21 ABG O2 Saturation 100 H 99 H 100 H ABG Base Excess -7 L -6 L -6 L VBG pH VBG pCO2 VBG pO2 VBG Base Excess 01/08/24 01/09/24 01/09/24 04:50 04:14 15:49 ABG pH 7.24 L 7.26 L 7.27 L ABG pCO2 47 50 H 51 H ABG pO2 97 D 97 90 ABG HCO3 20 22 23 ABG O2 Saturation 98 98 97 ABG Base Excess -7 L -5 L -4 L VBG pH VBG pCO2 VBG pO2 VBG Base Excess 01/10/24 01/11/24 01/12/24 04:52 04:35 05:24 ABG pH 7.33 L 7.34 L 7.31 L ABG pCO2 43 43 49 H ABG pO2 101 99 106 ABG HCO3 23 23 25 ABG O2 Saturation 98 98 98 ABG Base Excess -3 -3 -2 VBG pH VBG pCO2 VBG pO2 VBG Base Excess Assessment & Plan A&P Narrative abd perforation at surgery over a month ago now delayed wound closure done 12/31/23 dm II. a1c not too bad ckd, with dany changed Bruno to renally dosed levaquin/flagyl and stopped flagyl 02/01 changed to po for friday home when off tpn and when ready otherwise. will see again prn, duration of rx is anyone's guess as we have bombed past the usual rx for peritonitis with perforation.suggest another 5d at home if nausea improves. home ok at discretion of surgery. f/u with surgery, no need for outpt ID f/u after release. Time Spent With Patient Time: Total time spent is greater than 50% in coordination of care (as documented) at patient's floor/unit and/or counseling patient:
[2024-02-07] MEDS: MIRTAZAPINE 15 MG TABLET PO (20:10)
[2024-02-08] VITALS (12 sets, daily range): BP systolic 120–135; BP diastolic 80–93; PULSE 98–121; RESP 15–23; TEMP 36.2–36.7; O2SAT 95–98
[2024-02-08] MEDS: METOCLOPRAMIDE INJ 5 MG/ML VIAL 2 ML 10 MG IVP ×4 (00:28→18:28)
[2024-02-08] MEDS: HYDROcodone/APAP 7.5/325 TABLET 1 TAB PO ×3 (04:01→20:14)
[2024-02-08 06:52] LABS: Basophils % (Auto) 0 % (0-2.5); Eosinophils # (Auto) 0.2 Thou/mm3 (0.0-0.5); Eosinophils % (Auto) 2 % (0-10); Hematocrit 26.8 % (41.0-53.0); Immature Granulocytes % (Auto) 1 % (0-0); Immature Granulocytes Auto 0.11 Thou/mm3 (0.00-0.00); Lymphocytes # (Auto) 3.6 Thou/mm3 (1.0-4.8); Lymphocytes % (Auto) 33 % (10-50); Mean Corpuscular HGB Conc 32.1 g/dl (31.0-37.0); Mean Corpuscular Hemoglobin 27.2 pg (25.0-35.0); Mean Corpuscular Volume 85 fL (80-100); Monocytes # (Auto) 0.8 Thou/mm3 (0.0-0.8); Monocytes % (Auto) 7 % (0-12); Neutrophils # (Auto) 6.2 Thou/mm3 (1.8-7.7); Neutrophils % (Auto) 56 % (37-80); Nucleated Red Blood Cell % 0 /100 WBC (0); Platelet Count 344 Thou/mm3 (140-440); RDW Standard Deviation 49.1 fL (35.1-43.9); Red Blood Count 3.16 Miln/mm3 (4.50-5.90); White Blood Count 10.9 Thou/mm3 (3.8-10.6)
[2024-02-08 06:56] LABS: Alanine Aminotransferase 16 U/L (10-49); Albumin, Serum 3.5 gm/dL (3.5-5.0); Alkaline Phosphatase 130 U/L (46-116); Anion Gap 10 (7-16); Aspartate Amino Transferase 23 U/L (0-34); BUN/Creatinine Ratio 20 Ratio (12-20); Bilirubin,Total 0.4 mg/dL (0.3-1.2); Blood Urea Nitrogen 24 mg/dL (9-23); Calcium 8.6 mg/dL (8.3-10.6); Carbon Dioxide 24.2 mMol/L (20.0-31.0); Chloride 101 mMol/L (98-107); Creatinine (Component) 1.2 mg/dL (0.6-1.3); Estimated Creatinine Clearance 76.4 mL/min (>60); Globulin 3.4 gm/dL (2.3-3.5); Glucose 116 mg/dL (74-106); Magnesium 1.9 mg/dL (1.6-2.6); Osmolality,Calculated 275 (275-295); Potassium 3.8 mMol/L (3.4-5.1); Sodium 135 mMol/L (136-145); Total Protein 6.9 gm/dL (5.7-8.2); eGFR > 60 See Note
[2024-02-08 07:03] LABS: Hemoglobin 8.6 g/dL (13.5-16.0)
[2024-02-08] MEDS: METOPROLOL SUCCINATE XL 25 MG TABCR 50 MG PO (08:44)
[2024-02-08] MEDS: LEVOFLOXACIN 250 MG TABLET PO (08:44)
[2024-02-08 10:01] LABS: Phosphorous 4.7 mg/dL (2.4-5.1)
--- NOTE | 2024-02-08 11:09 | ESPR_ITS ---
<Statement entered by Shemar Donato MD - 02/08/24 14:21> Patient was seen and examined at the bedside with the new medicine team. Patient is currently doing fine and had stable vitals. Wound VAC is placed. General surgery recommended to wean off TPN completely and likely discharge tomorrow morning. Currently receiving Levaquin suggested by ID specialist. Closely monitoring electrolytes and repleting as necessary. All labs and orders were reviewed. I saw and examined the patient, and I agree with current management stated by Dr Alvin MD,PGY1. Plan of care was discussed with the attending physician and resident physician. Disclaimer: Despite multiple revisions, due to the dictation software being used, the document bellow may not be free of grammatical errors including phonetic/typographic errors. However, this does not deter from our commitment to providing health care in the patient's best interest in mind. Dr. Raciel MD, PGY 2 Documentation for date of: 02/08/24 Subjective Subjective Interval history: Patient is Cypriot-speaking and interaction facilitated with healthcare automotive parts interpreter Patient seen and examined in telemetry this a.m. Patient currently has no complaints and denies any nausea/vomiting, chest pain or palpitations and shortness of breath Patient states that he ambulated yesterday with PT with the assistance of a walker and the plan is to ambulate today as well. Patient's ileostomy has good output as well as his abdominal wound VAC. TPN planned to be discontinued at 2 PM as per general surgery recommendations. Phosphorus this morning was 4.7 and Hb 8.6 decreased from 9.4 Exam Vital Signs Temp Pulse Resp BP Pulse Ox O2 Del Method O2 Flow Rate 97.1 F 98 15 127/86 H 98 Room Air 3 02/08/24 07:56 02/08/24 08:44 02/08/24 07:56 02/08/24 08:44 02/08/24 07:56 02/08/24 07:56 02/05/24 04:46 FiO2 30 02/05/24 04:46 Narrative Exam General: A/O x3, no acute distress, resting in bed Eyes: PERRL, EOMI. Anicteric, vision grossly intact. Ears: No ear pain, no ear discharge, Hearing grossly intact. Nose: No nasal discharge. Mouth/Throat: Dry mucous membranes, no redness, no lesions. Neck: Neck supple, non-tender, no cervical lymphadenopathy. Lungs: Clear KYA to auscultation and percussion, No accessory muscle use. Cardio: Normal S1/S2, regular rhythm, no murmurs, no JVD Abdomen: Soft, Wound VAC in place with clean margins and healthy granulation tissue, no tenderness, no palpable masses, peristalsis present, no guarding or rebound. , Ileostomy RLL, good output Extremities: Symmetrical, no significant deformities, no peripheral edema , non-tender, peripheral pulses presents. Skin: no lesions, warm to touch. Neuro: No focal neurological deficits. motor and sensory intact Psych: Cooperative, appropriate mood and effect. Objective Labs 02/08/24 06:00 02/08/24 06:00 Labs: Laboratory Results - last 24 hr 02/08/24 06:00 WBC 10.9 H RBC 3.16 L Hgb 8.6 L Hct 26.8 L MCV 85 MCH 27.2 MCHC 32.1 RDW Std Deviation 49.1 H Plt Count 344 Neut % (Auto) 56 Lymph % (Auto) 33 [place] % (Auto) 7 Eos % (Auto) 2 Baso % (Auto) 0 Neut # (Auto) 6.2 Lymph # (Auto) 3.6 [place] # (Auto) 0.8 Eos # (Auto) 0.2 Baso # (Auto) 0.0 Immature Gran # (Auto) 0.11 H Absolute Nucleated RBC 0.00 Immature Gran % 1 H Nucleated RBC % 0 Sodium 135 L Potassium 3.8 Chloride 101 Carbon Dioxide 24.2 Anion Gap 10 BUN 24 H Creatinine 1.2 Estim Creat Clear Calc 76.4 eGFR > 60 BUN/Creatinine Ratio 20 Glucose 116 H Calculated Osmolality 275 Calcium 8.6 Corrected Calcium 9.0 Phosphorus 4.7 Magnesium 1.9 Total Bilirubin 0.4 AST 23 ALT 16 Alkaline Phosphatase 130 H Total Protein 6.9 Albumin 3.5 Globulin 3.4 Albumin/Globulin Ratio 1.0 L ABG Interpretation ABG results: 12/21/23 12/24/23 12/25/23 15:50 19:45 02:34 ABG pH 7.40 7.23 L D ABG pCO2 40 56 H D ABG pO2 134 H 229 H D ABG HCO3 25 24 ABG O2 Saturation 99 H 100 H ABG Base Excess 0 -5 L VBG pH 7.48 VBG pCO2 35 L VBG pO2 56 VBG Base Excess 2 12/25/23 12/25/23 12/26/23 04:54 10:48 06:56 ABG pH 7.25 L 7.33 L 7.34 L ABG pCO2 52 H 45 43 ABG pO2 93 D 99 95 ABG HCO3 23 23 23 ABG O2 Saturation 97 98 98 ABG Base Excess -5 L -3 -2 VBG pH VBG pCO2 VBG pO2 VBG Base Excess 12/26/23 01/05/24 01/06/24 10:15 08:13 13:50 ABG pH 7.36 7.37 7.42 ABG pCO2 41 38 30 L ABG pO2 87 75 L 90 ABG HCO3 23 22 19 L ABG O2 Saturation 98 96 98 ABG Base Excess -2 -3 -5 L VBG pH VBG pCO2 VBG pO2 VBG Base Excess 01/06/24 01/07/24 01/07/24 21:44 00:30 04:35 ABG pH 7.12 L* D 7.22 L D 7.27 L ABG pCO2 69 H D 52 H D 45 ABG pO2 261 H D 161 H D 209 H D ABG HCO3 22 21 21 ABG O2 Saturation 100 H 99 H 100 H ABG Base Excess -7 L -6 L -6 L VBG pH VBG pCO2 VBG pO2 VBG Base Excess 01/08/24 01/09/24 01/09/24 04:50 04:14 15:49 ABG pH 7.24 L 7.26 L 7.27 L ABG pCO2 47 50 H 51 H ABG pO2 97 D 97 90 ABG HCO3 20 22 23 ABG O2 Saturation 98 98 97 ABG Base Excess -7 L -5 L -4 L VBG pH VBG pCO2 VBG pO2 VBG Base Excess 01/10/24 01/11/24 01/12/24 04:52 04:35 05:24 ABG pH 7.33 L 7.34 L 7.31 L ABG pCO2 43 43 49 H ABG pO2 101 99 106 ABG HCO3 23 23 25 ABG O2 Saturation 98 98 98 ABG Base Excess -3 -3 -2 VBG pH VBG pCO2 VBG pO2 VBG Base Excess Quality Measures Quality Measures VTE prophylaxis (heparin subcutaneously) Assessment & Plan Assessment Current Active Medications: Generic Name Dose Route Start Last Admin Trade Name Freq PRN Reason Stop Dose Admin Acetaminophen 650 mg 01/24/24 23:23 02/03/24 21:34 Acetaminophen 325 Mg Tablet PO 02/21/24 20:48 650 mg Q6HR PRN Administration Pain Scale 1-3 or Fever >100.3 Hydrocodone Bitart/Acetaminophen 1 tab 02/06/24 12:21 02/08/24 04:01 Hydrocodone/Apap 7.5/325 Tablet PO 02/11/24 12:20 1 tab Q4HR PRN Administration PAIN SCALE 4-10(Mod-Sev Amlodipine Besylate 10 mg 01/13/24 12:30 01/25/24 09:00 Amlodipine Besylate 5 Mg Tablet PO 02/12/24 12:29 10 mg QDAY TAL Administration Fat Emulsion-[place] Oil/Soybean Oil 500 mls @ 32 mls/hr 01/28/24 18:00 02/04/24 17:50 Clinopid 20% Iv IV 02/27/24 17:59 32 mls/hr We@1800 TAL Administration Levofloxacin 250 mg 02/03/24 09:00 02/08/24 08:44 Levofloxacin 250 Mg Tablet PO 02/10/24 08:59 250 mg QDAY TAL Administration Metoclopramide HCl 10 mg 01/29/24 20:54 02/08/24 05:27 Metoclopramide Inj 5 Mg/Ml Vial 2 Ml IVP 02/28/24 20:53 10 mg Q6HR TAL Administration Protocol Metoprolol Succinate 50 mg 01/26/24 09:00 02/08/24 08:44 Metoprolol Succinate Xl 25 Mg Tabcr PO 02/25/24 08:59 50 mg QDAY TAL Administration Mirtazapine 15 mg 01/23/24 21:00 02/07/24 20:10 Mirtazapine 15 Mg Tablet PO 02/22/24 20:59 15 mg HS TAL Administration Plan 43-year-old male with no significant past medical history who was admitted to the hospital by general surgery on 12/21/2023 for acute perforated appendicitis with multiple postop complications. #Sepsis likely secondary to acute perforated appendicitis - resolving #Acute perforated appendicitis #Small bowel perforation s/p ileostomy #Peritonitis - resolving #Subcapsular abscess s/p CT-guided drain placement and removal #Subphrenic abscess, R Initially patient met SIRS 2 out of 4 with leukocytosis and tachycardia Patient underwent multiple surgical procedures including laparoscopic appendectomy on day of admission (12/21/2023), 2 ex laps (12/25/2023 and 01/06/2024), and additional secondary closure of abdomen incision (01/01/2024). ?Multiple blood cultures, urine cultures, sputum cultures, and abdominal wound cultures have come back negative ?Abdomen/pelvis CT on 01/12/2024 showed localized fluid collection on the right lower abdomen consistent with an abscess ?Patient had percutaneous drainage catheter taken out by IR as per general surgeon ?Patient has not been having good oral intake therefore TPN will be continued as per general surgeon -DC'd vancomycin (day 9) and Zosyn (day 8 of second treatment) -WBC 12.2 and still tachycardic -CT abdomen/pelvis (01/18/24) showed Right subphrenic abscess which is very small in thickness, 13 mm and abscess below the liver measures 8.4 x 11.5 x 3.8 cm ? CT abdomen/pelvis 02/06/2024 showed right lower abdomen abscess resolved and right perinephric abscess decreased measuring 14 mm -IR placed pleural drainage again on 01/20/2024 and additional drainage today [02/02/2024-] -DC'd meropenem [01/18/2024-01/26/2024] -DC'd Flagyl [01/26/24-02/02/2024] -Drainages taken out 02/06/2024 Plan: - TPN to be discontinued at 2 pm today as per General Surgery recommendations. - To organize outpatient wound VAC with social work ? Advance diet to po - Recommend to follow ID recommendations on Antibiotic regimen levaquin now P.O [02/03/2024-] [IV -->01/26/24-02/03/2024] ? Recommend wound care. ? Will continue to monitor for any spiking any fever or elevated WBC. #ANITHA #Likely ATN #NAGMA Creatinine worsened to 1.2 from 1.1, bicarb 23.3 Likely ATN given multiple CT w contrast Nephrology ordered nuclear medicine renal scan showed no renal function., as per nephrology this is likely ATN and patient will not need HD for now. DC'd Bicitra Plan: -Recommend encourage oral hydration ?Avoid nephrotoxic agents. ?Renally dose medications. -Nephrology consulted, appreciate recommendations ?Will continue to monitor. #Sinus Tachycardia #Hypertension. -Possibly related pain from recent surgeries, less likely infectious -EKGs in december 2023 reveal sinus tachycardia -Discontinued amlodipine. Plan: -Continue metoprolol succinate to 50 mg daily. #Irritant contact dermatitis. - resolving -Patient developed an inner thigh rash most likely due to friction Plan: -Will continue to monitor #Normocytic normochromic anemia. ?Hgb 9.4 ?Most likely a component of some blood loss given multiple surgical procedures and hemodilution Plan: ?Recommend to transfuse if hemoglobin less than 7 ?Will continue to monitor #Hypokalemia, resolved #Hypomagnesemia #Hyponatremia #hypocalcemia #Hyperphosphatemia -Potassium 3.6, sodium 133, Calcium 8.9, Mg 1.3 Plan: -Recommend to replete as necessary -Will continue to monitor #Acute hypoxic respiratory failure, resolved. #Pleural effusion, resolved. ?Patient was intubated in the ICU and was successfully extubated on 01/12/2024 ?Chest x-ray on 01/12/2024 showed no pneumonia and no right pleural fluid ?Patient had chest tube taken out by general surgeon -Will assess possibility to take chest tube out ?Checks x-ray 01/15/24 showed no pleural fluid Plan: ?Will continue to monitor Health maintenance: Disposition: Pending Wound vac for discharge to home Diet: Regular Lines: pIVs GI Prophylaxis: None Thrombo Prophylaxis: None Code status: FULL CODE Plan of care discussed with Attending Dr. Hancock and PGY2 Dr. Raciel Munguia MD PGY 1 Attending Provider Attestation/Addendum I have examined the patient, reviewed labs and imaging findings, discussed the case with the resident(s), and reviewed entered orders. I agree with the plan of care as outlined in this note, with these additional summaries/recommendations: Patient seen at bedside. No acute overnight events. He reports his pain is controlled. Continue as needed [place]. He continues to endorse significant improvement in his appetite and oral intake. We will discontinue TPN today. He denies postprandial pain. Wound VAC in place and case management notified to arrange home health for wound VAC. Continue Levaquin and infectious disease following. Leukocytosis continues to improve. Sinus tachycardia persists and we will continue metoprolol although anticipate improvement in tachycardia as infection continues to heal. Anticipate discharge in the next 24 to 48 hours pending arrangement of home health. Dr. Hancock
--- NOTE | 2024-02-08 11:27 | PD.SURPROG ---
Documentation for date of: 02/08/24 Subjective Subjective Brief History: As above Narrative: The patient appears to be getting better. He does not have much complaints after removal of the drainage catheter. He is eating well Exam Vital Signs Temp Pulse Resp BP Pulse Ox O2 Del Method O2 Flow Rate 97.1 F 98 15 127/86 H 98 Room Air 3 02/08/24 07:56 02/08/24 08:44 02/08/24 07:56 02/08/24 08:44 02/08/24 07:56 02/08/24 07:56 02/05/24 04:46 FiO2 30 02/05/24 04:46 His vital signs are normal finally his heart rate coming below 100 Routine Abdominal Exam Comments: Abdominal examination is unremarkable Results Results: Laboratory Laboratory Narrative: Laboratory results show WBC 10,900 which is normal Assessment & Plan Assessment Additional comments: Impression: Patient has made reasonably good recovery after prolonged hospitalization Plan Plan: We will discontinue TPN today around 2 PM We shall discharge him tomorrow if home health makes arrangements for wound VAC as an outpatient Procedures Procedures Exploratory laparotomy and drainage of the subcutaneous infection and wound VAC application
--- NOTE | 2024-02-08 19:34 | PD.NEPHPROG ---
Documentation for date of: 02/08/24 Subjective Subjective Interval history: Chart review done. Patient had a prolonged hospital course. Mr. Morales is a 43-year-old gentleman with no past medical history presented to [facility] on 12/21/2023 with perforated appendicitis with free purulent material in abdomen, underwent laparoscopic appendectomy 12/21/2023. repeat CT A/P showed pneumoperitoneum,so he had exploratory laparotomy on 12/23 and was found to have small bowel perforation, washout was performed & subsequent diverting ileostomy and wound VAC. 12/28: CT-guided percutaneous drainage catheter placed for subphrenic abscess. 12/31 underwent secondary closure of abdominal incision. 01/06/24 patient was taken to the OR. Findings:Purulent material was seen which was whitish and not foul-smelling, sutures removed, irrigated the wound extensively with saline solution and left #19 round [place] on the right gutter, then the wound was closed with wound VAC leaving the fascia completely open. Patient tolerated the procedure well and left operating room in stable condition. Patient was in ICU for septic shock. Intubated and subsequently extubated. Transferred to medical floor. Has been receiving significant amount of antibiotics. Currently with ileostomy, VANESSA drain, open wound with wound VAC. Nephrology consultation requested for elevated BUN and creatinine. 01/25/2024 WBC 17.6, hemoglobin 7.4, platelets 392. Sodium 126, potassium 4.2, bicarbonate 18.7, BUN 40, creatinine 2.6, calcium 8.3, phosphorus 4.5, albumin 3.2 urinalysis shows 2+ protein 2+ blood with 72 RBCs and budding yeast. Abdominal CT on 1113 showed subphrenic abscess. His current medications included amlodipine, metoprolol, Remeron, morphine as needed 02/08/2024 patient resting comfortably in telemetry. Hospital day 49. Blood pressure 120/80, heart rate 114. WBC 10.9, hemoglobin 8.6. Creatinine markedly improved to 1.2. LFTs normal. Review of Systems Review of Systems Narrative Review of Systems: Patient seems to be much stronger. Denies any chest pain, shortness of breath. Denies any nausea, vomiting Exam Vital Signs Temp Pulse Resp BP Pulse Ox O2 Del Method O2 Flow Rate 36.4 C 114 H 18 120/80 97 Room Air 3 02/08/24 16:22 02/08/24 16:22 02/08/24 16:22 02/08/24 16:22 02/08/24 16:22 02/08/24 16:22 02/05/24 04:46 FiO2 30 02/05/24 04:46 Narrative Exam GENERAL APPEARANCE: Well-appearing gentleman currently seen in telemetry CARDIOVASCULAR: Heart regular, no murmurs, tachycardia LUNGS/CHEST: Chest clear to auscultation. No rales, rhonchi, wheezing ABDOMEN: S/p diversion ileostomy, wound VAC, VANESSA drain. EXTREMITIES: No clubbing or cyanosis. Trace edema bilateral lower extremities. SKIN: Skin exam normal without any rashes MUSCULOSKELETAL: In bed. Mild weakness, likely due to deconditioning. NEUROLOGICAL : No neurological deficits, alert and awake Objective Labs 02/08/24 06:00 02/08/24 06:00 Labs: Laboratory Results - last 24 hr 02/08/24 06:00 WBC 10.9 H RBC 3.16 L Hgb 8.6 L Hct 26.8 L MCV 85 MCH 27.2 MCHC 32.1 RDW Std Deviation 49.1 H Plt Count 344 Neut % (Auto) 56 Lymph % (Auto) 33 [place] % (Auto) 7 Eos % (Auto) 2 Baso % (Auto) 0 Neut # (Auto) 6.2 Lymph # (Auto) 3.6 [place] # (Auto) 0.8 Eos # (Auto) 0.2 Baso # (Auto) 0.0 Immature Gran # (Auto) 0.11 H Absolute Nucleated RBC 0.00 Immature Gran % 1 H Nucleated RBC % 0 Sodium 135 L Potassium 3.8 Chloride 101 Carbon Dioxide 24.2 Anion Gap 10 BUN 24 H Creatinine 1.2 Estim Creat Clear Calc 76.4 eGFR > 60 BUN/Creatinine Ratio 20 Glucose 116 H Calculated Osmolality 275 Calcium 8.6 Corrected Calcium 9.0 Phosphorus 4.7 Magnesium 1.9 Total Bilirubin 0.4 AST 23 ALT 16 Alkaline Phosphatase 130 H Total Protein 6.9 Albumin 3.5 Globulin 3.4 Albumin/Globulin Ratio 1.0 L ABG Interpretation ABG results: 12/21/23 12/24/23 12/25/23 15:50 19:45 02:34 ABG pH 7.40 7.23 L D ABG pCO2 40 56 H D ABG pO2 134 H 229 H D ABG HCO3 25 24 ABG O2 Saturation 99 H 100 H ABG Base Excess 0 -5 L VBG pH 7.48 VBG pCO2 35 L VBG pO2 56 VBG Base Excess 2 12/25/23 12/25/23 12/26/23 04:54 10:48 06:56 ABG pH 7.25 L 7.33 L 7.34 L ABG pCO2 52 H 45 43 ABG pO2 93 D 99 95 ABG HCO3 23 23 23 ABG O2 Saturation 97 98 98 ABG Base Excess -5 L -3 -2 VBG pH VBG pCO2 VBG pO2 VBG Base Excess 12/26/23 01/05/24 01/06/24 10:15 08:13 13:50 ABG pH 7.36 7.37 7.42 ABG pCO2 41 38 30 L ABG pO2 87 75 L 90 ABG HCO3 23 22 19 L ABG O2 Saturation 98 96 98 ABG Base Excess -2 -3 -5 L VBG pH VBG pCO2 VBG pO2 VBG Base Excess 01/06/24 01/07/24 01/07/24 21:44 00:30 04:35 ABG pH 7.12 L* D 7.22 L D 7.27 L ABG pCO2 69 H D 52 H D 45 ABG pO2 261 H D 161 H D 209 H D ABG HCO3 22 21 21 ABG O2 Saturation 100 H 99 H 100 H ABG Base Excess -7 L -6 L -6 L VBG pH VBG pCO2 VBG pO2 VBG Base Excess 01/08/24 01/09/24 01/09/24 04:50 04:14 15:49 ABG pH 7.24 L 7.26 L 7.27 L ABG pCO2 47 50 H 51 H ABG pO2 97 D 97 90 ABG HCO3 20 22 23 ABG O2 Saturation 98 98 97 ABG Base Excess -7 L -5 L -4 L VBG pH VBG pCO2 VBG pO2 VBG Base Excess 01/10/24 01/11/24 01/12/24 04:52 04:35 05:24 ABG pH 7.33 L 7.34 L 7.31 L ABG pCO2 43 43 49 H ABG pO2 101 99 106 ABG HCO3 23 23 25 ABG O2 Saturation 98 98 98 ABG Base Excess -3 -3 -2 VBG pH VBG pCO2 VBG pO2 VBG Base Excess Assessment & Plan Assessment and plan (1) Acute renal failure (ARF): Status: Acute Assessment and plan: Acute renal failure secondary to prerenal azotemia versus ATN from underlying infection. Patient received significant amount of antibiotics in the last 2 weeks. Renal ultrasound normal. Clinically patient has a lot of GI losses. With IV fluids and replacement of electrolytes his creatinine markedly improved. (2) Metabolic acidosis: Status: Acute Assessment and plan: Metabolic acidosis from GI losses. Improved to 24.2 (3) Hyponatremia: Status: Acute Assessment and plan: Hypovolemic hyponatremia. Better (4) Anemia: Status: Acute Assessment and plan: Anemia from underlying sepsis/renal insufficiency. Hemoglobin stable (5) Sepsis: Status: Acute Assessment and plan: Patient with perforated appendix, complicated with peritonitis, sepsis and went to the OR twice. Currently with wound VAC, VANESSA drain, ileostomy. Patient off antibiotics. Sepsis resolved. Additional Assessment & Plan Additional Plan: Thank you Dr. Abrams for allowing me to participate in the care of Mr. Andrew alonso zheng no further recommendations. Will sign off.
[2024-02-08] MEDS: MIRTAZAPINE 15 MG TABLET PO (20:14)
--- NOTE | 2024-02-08 22:17 | PD.IMPROG ---
Documentation for date of: 02/08/24 Subjective Subjective Interval history: On Reglan Tolerating food Exam Vital Signs Temp Pulse Resp BP Pulse Ox O2 Del Method O2 Flow Rate 97.4 F 121 H 23 H 134/89 H 98 Room Air 3 02/08/24 20:00 02/08/24 20:00 02/08/24 20:00 02/08/24 20:00 02/08/24 20:00 02/08/24 20:00 02/05/24 04:46 FiO2 30 02/05/24 04:46 Objective Labs 02/08/24 06:00 02/08/24 06:00 Labs: Laboratory Results - last 24 hr 02/08/24 06:00 WBC 10.9 H RBC 3.16 L Hgb 8.6 L Hct 26.8 L MCV 85 MCH 27.2 MCHC 32.1 RDW Std Deviation 49.1 H Plt Count 344 Neut % (Auto) 56 Lymph % (Auto) 33 [place] % (Auto) 7 Eos % (Auto) 2 Baso % (Auto) 0 Neut # (Auto) 6.2 Lymph # (Auto) 3.6 [place] # (Auto) 0.8 Eos # (Auto) 0.2 Baso # (Auto) 0.0 Immature Gran # (Auto) 0.11 H Absolute Nucleated RBC 0.00 Immature Gran % 1 H Nucleated RBC % 0 Sodium 135 L Potassium 3.8 Chloride 101 Carbon Dioxide 24.2 Anion Gap 10 BUN 24 H Creatinine 1.2 Estim Creat Clear Calc 76.4 eGFR > 60 BUN/Creatinine Ratio 20 Glucose 116 H Calculated Osmolality 275 Calcium 8.6 Corrected Calcium 9.0 Phosphorus 4.7 Magnesium 1.9 Total Bilirubin 0.4 AST 23 ALT 16 Alkaline Phosphatase 130 H Total Protein 6.9 Albumin 3.5 Globulin 3.4 Albumin/Globulin Ratio 1.0 L Impressions Impression: # Gastrointestinal motility disorder Continue current management ABG Interpretation ABG results: 12/21/23 12/24/23 12/25/23 15:50 19:45 02:34 ABG pH 7.40 7.23 L D ABG pCO2 40 56 H D ABG pO2 134 H 229 H D ABG HCO3 25 24 ABG O2 Saturation 99 H 100 H ABG Base Excess 0 -5 L VBG pH 7.48 VBG pCO2 35 L VBG pO2 56 VBG Base Excess 2 1012/25/23 12/26/23 04:54 10:48 06:56 ABG pH 7.25 L 7.33 L 7.34 L ABG pCO2 52 H 45 43 ABG pO2 93 D 99 95 ABG HCO3 23 23 23 ABG O2 Saturation 97 98 98 ABG Base Excess -5 L -3 -2 VBG pH VBG pCO2 VBG pO2 VBG Base Excess 12/26/23 01/05/24 01/06/24 10:15 08:13 13:50 ABG pH 7.36 7.37 7.42 ABG pCO2 41 38 30 L ABG pO2 87 75 L 90 ABG HCO3 23 22 19 L ABG O2 Saturation 98 96 98 ABG Base Excess -2 -3 -5 L VBG pH VBG pCO2 VBG pO2 VBG Base Excess 01/06/24 01/07/24 01/07/24 21:44 00:30 04:35 ABG pH 7.12 L* D 7.22 L D 7.27 L ABG pCO2 69 H D 52 H D 45 ABG pO2 261 H D 161 H D 209 H D ABG HCO3 22 21 21 ABG O2 Saturation 100 H 99 H 100 H ABG Base Excess -7 L -6 L -6 L VBG pH VBG pCO2 VBG pO2 VBG Base Excess 01/08/24 01/09/24 01/09/24 04:50 04:14 15:49 ABG pH 7.24 L 7.26 L 7.27 L ABG pCO2 47 50 H 51 H ABG pO2 97 D 97 90 ABG HCO3 20 22 23 ABG O2 Saturation 98 98 97 ABG Base Excess -7 L -5 L -4 L VBG pH VBG pCO2 VBG pO2 VBG Base Excess 01/10/24 01/11/24 01/12/24 04:52 04:35 05:24 ABG pH 7.33 L 7.34 L 7.31 L ABG pCO2 43 43 49 H ABG pO2 101 99 106 ABG HCO3 23 23 25 ABG O2 Saturation 98 98 98 ABG Base Excess -3 -3 -2 VBG pH VBG pCO2 VBG pO2 VBG Base Excess Assessment & Plan A&P Narrative abd perforation at surgery over a month ago now delayed wound closure done 12/31/23 dm II. a1c not too bad ckd, with dany changed Friday to renally dosed levaquin/flagyl and stopped flagyl 02/01 changed to po for friday home when off tpn and when ready otherwise. will see again prn, duration of rx is anyone's guess as we have bombed past the usual rx for peritonitis with perforation.suggest another 5d at home if nausea improves. home ok at discretion of surgery. f/u with surgery, no need for outpt ID f/u after release. Time Spent With Patient Time: Total time spent is greater than 50% in coordination of care (as documented) at patient's floor/unit and/or counseling patient:
[2024-02-09] VITALS (8 sets, daily range): BP systolic 119–136; BP diastolic 81–87; PULSE 98–120; RESP 16–25; TEMP 36.1–36.7; O2SAT 97–98; BMI 29.7
[2024-02-09] MEDS: METOCLOPRAMIDE INJ 5 MG/ML VIAL 2 ML 10 MG IVP ×3 (00:36→20:09)
[2024-02-09 05:55] LABS: Basophils % (Auto) 0 % (0-2.5); Eosinophils # (Auto) 0.2 Thou/mm3 (0.0-0.5); Eosinophils % (Auto) 2 % (0-10); Hematocrit 27.6 % (41.0-53.0); Immature Granulocytes % (Auto) 1 % (0-0); Immature Granulocytes Auto 0.12 Thou/mm3 (0.00-0.00); Lymphocytes # (Auto) 4.2 Thou/mm3 (1.0-4.8); Lymphocytes % (Auto) 37 % (10-50); Mean Corpuscular HGB Conc 32.6 g/dl (31.0-37.0); Mean Corpuscular Hemoglobin 27.9 pg (25.0-35.0); Mean Corpuscular Volume 85 fL (80-100); Monocytes # (Auto) 0.9 Thou/mm3 (0.0-0.8); Monocytes % (Auto) 8 % (0-12); Neutrophils # (Auto) 5.8 Thou/mm3 (1.8-7.7); Neutrophils % (Auto) 52 % (37-80); Nucleated Red Blood Cell % 0 /100 WBC (0); Platelet Count 332 Thou/mm3 (140-440); RDW Standard Deviation 49.3 fL (35.1-43.9); Red Blood Count 3.23 Miln/mm3 (4.50-5.90); White Blood Count 11.3 Thou/mm3 (3.8-10.6)
[2024-02-09 06:19] LABS: Alanine Aminotransferase 26 U/L (10-49); Albumin, Serum 3.5 gm/dL (3.5-5.0); Albumin/Globulin Ratio 0.9 (1.2-2.2); Alkaline Phosphatase 155 U/L (46-116); Anion Gap 9 (7-16); Aspartate Amino Transferase 29 U/L (0-34); BUN/Creatinine Ratio 17 Ratio (12-20); Bilirubin,Total 0.4 mg/dL (0.3-1.2); Blood Urea Nitrogen 20 mg/dL (9-23); Calcium 9.3 mg/dL (8.3-10.6); Calcium (Corrected) 9.7 mg/dL (8.5-10.1); Carbon Dioxide 25.5 mMol/L (20.0-31.0); Chloride 104 mMol/L (98-107); Creatinine (Component) 1.2 mg/dL (0.6-1.3); Estimated Creatinine Clearance 75.4 mL/min (>60); Globulin 3.9 gm/dL (2.3-3.5); Glucose 89 mg/dL (74-106); Magnesium 1.7 mg/dL (1.6-2.6); Osmolality,Calculated 277 (275-295); Phosphorous 5.2 mg/dL (2.4-5.1); Potassium 4.4 mMol/L (3.4-5.1); Sodium 138 mMol/L (136-145); Total Protein 7.4 gm/dL (5.7-8.2); eGFR > 60 See Note
[2024-02-09] MEDS: Magnesium Sulfate 2 GM Ivpb 2 GM/50 ML BAG IV (09:00)
[2024-02-09] MEDS: HYDROcodone/APAP 7.5/325 TABLET 1 TAB PO ×2 (09:33→18:16)
[2024-02-09] MEDS: METOPROLOL SUCCINATE XL 25 MG TABCR 50 MG PO (09:33)
[2024-02-09] MEDS: LEVOFLOXACIN 250 MG TABLET PO (09:33)
--- NOTE | 2024-02-09 09:33 | PC.WOUND ---
Addendum entered by Charlotte Corey RN 02/09/24 15:19: Jennifer Pagan Fax received. [facility] assistance with referral submission. She will submit and keep me updated when authorized for release. Addendum entered by Charlotte Corey RN 02/09/24 14:37: Call recieved from [place] with [facility]. All documents received. Order requires MD authorization through Jennifer Pagan, . Called Jennifer Pagan, Spoke with Sean. R[place]D auth form sent to [facility] fax [phone]. Urgent orders take up to days. Addendum entered by Charlotte Corey RN 02/09/24 10:20: [facility] ready prison wound vac rental order process started via [employer]. Rental order number [id number]. Required documents faxed to [facility] (face sheet, H&P, consults, Op notes, Labs, WCC & RD notes, signed RX by Dr. Hancock) with return receipt. [facility] contact , fax Original Note: Call received from Dr. Rubio, plan to discharge home when home health and wound/ileostomy care arranged. Followed up with [facility], previous ready care order has . Will need to resubmit. Betina S/S aware.
--- NOTE | 2024-02-09 09:36 | ESPR_ITS ---
<Statement entered by Shemar Donato MD - 02/09/24 18:33> Patient was seen and examined at the bedside. Patient was doing much better. PO intake has increased more than 50% we dced fat emulsions as well. Pt did rec wound vac for home however hes pending for receiving home health services for wound vac management. We will cont levaquin for one more day. All labs and order were reviewed. I saw and examined the patient, and I agree with current management stated by Dr Alvin MD,PGY1. Plan of care was discussed with the attending physician and resident physician. Disclaimer: Despite multiple revisions, due to the dictation software being used, the document bellow may not be free of grammatical errors including phonetic/typographic errors. However, this does not deter from our commitment to providing health care in the patient's best interest in mind. Dr. 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 Patient currently has no complaints and denies any nausea/vomiting, chest pain or palpitations and shortness of breath Patient states that he ambulated today with PT with the assistance of a walker Patient's ileostomy has good output as well as his abdominal wound VAC. TPN planned to be discontinued at 2 PM yesterday as per general surgery recommendations. Phosphorus this morning was 5.2 and Hb 9 increased from 8.6 Patient pending home health and wound VAC for discharge Exam Vital Signs Temp Pulse Resp BP Pulse Ox O2 Del Method O2 Flow Rate 96.9 F 102 H 19 129/87 H 98 Room Air 3 02/09/24 07:39 02/09/24 09:33 02/09/24 07:39 02/09/24 09:33 02/09/24 07:39 02/09/24 07:39 02/05/24 04:46 FiO2 30 02/05/24 04:46 Narrative Exam General: A/O x3, no acute distress, resting in bed Eyes: PERRL, EOMI. Anicteric, vision grossly intact. Ears: No ear pain, no ear discharge, Hearing grossly intact. Nose: No nasal discharge. Mouth/Throat: Moist mucous membranes, no redness, no lesions. Neck: Neck supple, non-tender, no cervical lymphadenopathy. Lungs: Clear KYA to auscultation and percussion, No accessory muscle use. Cardio: Normal S1/S2, regular rhythm, no murmurs, no JVD Abdomen: Soft, Wound VAC in place with clean margins and healthy granulation tissue, no tenderness, no palpable masses, peristalsis present, no guarding or rebound. , Ileostomy RLQ, good output Extremities: Symmetrical, no significant deformities, no peripheral edema , non-tender, peripheral pulses presents. Skin: no lesions, warm to touch. Neuro: No focal neurological deficits. motor and sensory intact Psych: Cooperative, appropriate mood and effect. Objective Labs 02/10/24 05:32 02/10/24 05:32 Labs: Laboratory Results - last 24 hr 02/08/24 02/09/24 06:00 04:32 WBC 11.3 H RBC 3.23 L Hgb 9.0 L Hct 27.6 L MCV 85 MCH 27.9 MCHC 32.6 RDW Std Deviation 49.3 H Plt Count 332 Neut % (Auto) 52 Lymph % (Auto) 37 [place] % (Auto) 8 Eos % (Auto) 2 Baso % (Auto) 0 Neut # (Auto) 5.8 Lymph # (Auto) 4.2 [place] # (Auto) 0.9 H Eos # (Auto) 0.2 Baso # (Auto) 0.0 Immature Gran # (Auto) 0.12 H Absolute Nucleated RBC 0.00 Immature Gran % 1 H Nucleated RBC % 0 Sodium 138 Potassium 4.4 D Chloride 104 Carbon Dioxide 25.5 Anion Gap 9 BUN 20 Creatinine 1.2 Estim Creat Clear Calc 75.4 eGFR > 60 BUN/Creatinine Ratio 17 Glucose 89 Calculated Osmolality 277 Calcium 9.3 Corrected Calcium 9.7 Phosphorus 4.7 5.2 H Magnesium 1.7 Total Bilirubin 0.4 AST 29 ALT 26 Alkaline Phosphatase 155 H D Total Protein 7.4 Albumin 3.5 Globulin 3.9 H Albumin/Globulin Ratio 0.9 L ABG Interpretation ABG results: 12/21/23 12/24/23 12/25/23 15:50 19:45 02:34 ABG pH 7.40 7.23 L D ABG pCO2 40 56 H D ABG pO2 134 H 229 H D ABG HCO3 25 24 ABG O2 Saturation 99 H 100 H ABG Base Excess 0 -5 L VBG pH 7.48 VBG pCO2 35 L VBG pO2 56 VBG Base Excess 2 12/25/23 12/25/23 12/26/23 04:54 10:48 06:56 ABG pH 7.25 L 7.33 L 7.34 L ABG pCO2 52 H 45 43 ABG pO2 93 D 99 95 ABG HCO3 23 23 23 ABG O2 Saturation 97 98 98 ABG Base Excess -5 L -3 -2 VBG pH VBG pCO2 VBG pO2 VBG Base Excess 12/26/23 01/05/24 01/06/24 10:15 08:13 13:50 ABG pH 7.36 7.37 7.42 ABG pCO2 41 38 30 L ABG pO2 87 75 L 90 ABG HCO3 23 22 19 L ABG O2 Saturation 98 96 98 ABG Base Excess -2 -3 -5 L VBG pH VBG pCO2 VBG pO2 VBG Base Excess 01/06/24 01/07/24 01/07/24 21:44 00:30 04:35 ABG pH 7.12 L* D 7.22 L D 7.27 L ABG pCO2 69 H D 52 H D 45 ABG pO2 261 H D 161 H D 209 H D ABG HCO3 22 21 21 ABG O2 Saturation 100 H 99 H 100 H ABG Base Excess -7 L -6 L -6 L VBG pH VBG pCO2 VBG pO2 VBG Base Excess 01/08/24 01/09/24 01/09/24 04:50 04:14 15:49 ABG pH 7.24 L 7.26 L 7.27 L ABG pCO2 47 50 H 51 H ABG pO2 97 D 97 90 ABG HCO3 20 22 23 ABG O2 Saturation 98 98 97 ABG Base Excess -7 L -5 L -4 L VBG pH VBG pCO2 VBG pO2 VBG Base Excess 01/10/24 01/11/24 01/12/24 04:52 04:35 05:24 ABG pH 7.33 L 7.34 L 7.31 L ABG pCO2 43 43 49 H ABG pO2 101 99 106 ABG HCO3 23 23 25 ABG O2 Saturation 98 98 98 ABG Base Excess -3 -3 -2 VBG pH VBG pCO2 VBG pO2 VBG Base Excess Quality Measures Quality Measures VTE prophylaxis (heparin subcutaneously) Assessment & Plan Assessment Current Active Medications: Generic Name Dose Route Start Last Admin Trade Name Freq PRN Reason Stop Dose Admin Acetaminophen 650 mg 01/24/24 23:23 02/03/24 21:34 Acetaminophen 325 Mg Tablet PO 02/21/24 20:48 650 mg Q6HR PRN Administration Pain Scale 1-3 or Fever >100.3 Hydrocodone Bitart/Acetaminophen 1 tab 02/06/24 12:21 02/09/24 09:33 Hydrocodone/Apap 7.5/325 Tablet PO 02/11/24 12:20 1 tab Q4HR PRN Administration PAIN SCALE 4-10(Mod-Sev Amlodipine Besylate 10 mg 01/13/24 12:30 01/25/24 09:00 Amlodipine Besylate 5 Mg Tablet PO 02/12/24 12:29 10 mg QDAY TAL Administration Fat Emulsion-Spurger Oil/Soybean Oil 500 mls @ 32 mls/hr 01/28/24 18:00 02/04/24 17:50 Clinopid 20% Iv IV 02/27/24 17:59 32 mls/hr We@1800 TAL Administration Magnesium Sulfate 2 gm in 50 mls @ 25 mls/hr 02/09/24 08:16 02/09/24 09:00 Magnesium Sulfate Ivpb IV 02/09/24 10:15 25 mls/hr X1 ONE Administration Levofloxacin 250 mg 02/03/24 09:00 02/09/24 09:33 Levofloxacin 250 Mg Tablet PO 02/10/24 08:59 250 mg QDAY TAL Administration Metoclopramide HCl 10 mg 01/29/24 20:54 02/09/24 05:17 Metoclopramide Inj 5 Mg/Ml Vial 2 Ml IVP 02/28/24 20:53 10 mg Q6HR TAL Administration Protocol Metoprolol Succinate 50 mg 01/26/24 09:00 02/09/24 09:33 Metoprolol Succinate Xl 25 Mg Tabcr PO 02/25/24 08:59 50 mg QDAY TAL Administration Mirtazapine 15 mg 01/23/24 21:00 02/08/24 20:14 Mirtazapine 15 Mg Tablet PO 02/22/24 20:59 15 mg HS TAL Administration Plan 43-year-old male with no significant past medical history who was admitted to the hospital by general surgery on 12/21/2023 for acute perforated appendicitis with multiple postop complications. #Sepsis likely secondary to acute perforated appendicitis - resolving #Acute perforated appendicitis #Small bowel perforation s/p ileostomy #Peritonitis - resolving #Subcapsular abscess s/p CT-guided drain placement and removal #Subphrenic abscess, R Initially patient met SIRS 2 out of 4 with leukocytosis and tachycardia Patient underwent multiple surgical procedures including laparoscopic appendectomy on day of admission (12/21/2023), 2 ex laps (12/25/2023 and 01/06/2024), and additional secondary closure of abdomen incision (01/01/2024). ?Multiple blood cultures, urine cultures, sputum cultures, and abdominal wound cultures have come back negative ?Abdomen/pelvis CT on 01/12/2024 showed localized fluid collection on the right lower abdomen consistent with an abscess ?Patient had percutaneous drainage catheter taken out by IR as per general surgeon ?Patient has not been having good oral intake therefore TPN will be continued as per general surgeon -DC'd vancomycin (day 9) and Zosyn (day 8 of second treatment) -WBC 12.2 and still tachycardic -CT abdomen/pelvis (01/18/24) showed Right subphrenic abscess which is very small in thickness, 13 mm and abscess below the liver measures 8.4 x 11.5 x 3.8 cm ? CT abdomen/pelvis 02/06/2024 showed right lower abdomen abscess resolved and right perinephric abscess decreased measuring 14 mm -IR placed pleural drainage again on 01/20/2024 and additional drainage today [02/02/2024-] -DC'd meropenem [01/18/2024-01/26/2024] -DC'd Flagyl [01/26/24-02/02/2024] -Drainages taken out 02/06/2024 Plan: - TPN discontinued on02/07 as per General Surgery recommendations. ? Regular diet. Small meals to avoid refeeding syndrome - Recommend to follow ID recommendations on Antibiotic regimen levaquin now P.O [02/03/2024-] [IV -->01/26/24-02/03/2024] ? Recommend wound care. ? Will continue to monitor for any spiking any fever or elevated WBC. - Patient pending home health and wound VAC for discharge #ANITHA #Likely ATN #NAGMA Creatinine worsened to 1.2 from 1.1, bicarb 23.3 Likely ATN given multiple CT w contrast Nephrology ordered nuclear medicine renal scan showed no renal function., as per nephrology this is likely ATN and patient will not need HD for now. DC'd Bicitra Plan: -Recommend encourage oral hydration ?Avoid nephrotoxic agents. ?Renally dose medications. -Nephrology consulted, appreciate recommendations ?Will continue to monitor. #Sinus Tachycardia #Hypertension. -Possibly related pain from recent surgeries, less likely infectious -EKGs in december 2023 reveal sinus tachycardia -Discontinued amlodipine. Plan: -Continue metoprolol succinate to 50 mg daily. #Irritant contact dermatitis. - resolving -Patient developed an inner thigh rash most likely due to friction Plan: -Will continue to monitor #Normocytic normochromic anemia. ?Hgb 9.4 ?Most likely a component of some blood loss given multiple surgical procedures and hemodilution Plan: ?Recommend to transfuse if hemoglobin less than 7 ?Will continue to monitor #Hypokalemia, resolved #Hypomagnesemia #Hyponatremia #hypocalcemia #Hyperphosphatemia -Potassium 3.6, sodium 133, Calcium 8.9, Mg 1.3 Plan: -Recommend to replete as necessary -Will continue to monitor #Acute hypoxic respiratory failure, resolved. #Pleural effusion, resolved. ?Patient was intubated in the ICU and was successfully extubated on 01/12/2024 ?Chest x-ray on 01/12/2024 showed no pneumonia and no right pleural fluid ?Patient had chest tube taken out by general surgeon -Will assess possibility to take chest tube out ?Checks x-ray 01/15/24 showed no pleural fluid Plan: ?Will continue to monitor Health maintenance: Disposition: Pending Wound vac and home health for discharge to home Diet: Regular Lines: pIVs GI Prophylaxis: None Thrombo Prophylaxis: None Code status: FULL CODE Plan of care discussed with Attending Dr. Hancock and PGY2 Dr. Raciel Munguia MD PGY 1 Attending Provider Attestation/Addendum I have examined the patient, reviewed labs and imaging findings, discussed the case with the resident(s), and reviewed entered orders. I agree with the plan of care as outlined in this note, with these additional summaries/recommendations: Patient seen at bedside. No acute overnight events. He reports his pain is controlled. Continue as needed [place]. Patient continues to endorse improvement in his appetite and is approaching his baseline. TPN was discontinued yesterday. Patient received home wound vac although case management arranging home health services for management. Patient will need close outpatient follow-up with general surgery. Continue Levaquin and infectious disease following. Leukocytosis continues to improve although not resolved. Sinus tachycardia persists and we will continue metoprolol although anticipate improvement in tachycardia as infection continues to heal. Anticipate discharge once home health arranged. Dr. Hancock
--- NOTE | 2024-02-09 09:48 | PC.SS ---
SS follow up note; SS spoke to Charlotte the wound care nurse in regards to patient needing wound vac. Patient will also discharge home with HH. No preference of HH agency.
--- NOTE | 2024-02-09 11:45 | PC.CM ---
Addendum entered by Marko Bunch RN 02/09/24 18:29: Still no accepting HH agency. 12 declined. 1 considering. Addendum entered by Marko Bunch RN 02/09/24 12:39: 7 HH agencies declined the pt and 1 is considering. Addendum entered by Marko Bunch RN 02/09/24 12:17: Per SS notes patient has no preference in HH agency. Pt has new ileostomy and wound vac. HH referral sent on [facility]. Awaiting responses. Pending Start of care date. Original Note: reached out to Dr. Hancock to place HH orders.
--- NOTE | 2024-02-09 19:59 | PD.IMPROG ---
Documentation for date of: 02/09/24 Subjective Subjective Interval history: No nausea vomiting able to tolerate p.o. diet Exam Vital Signs Temp Pulse Resp BP Pulse Ox O2 Del Method O2 Flow Rate 96.9 F 101 H 19 133/86 H 97 Room Air 3 02/09/24 16:00 02/09/24 16:00 02/09/24 16:00 02/09/24 16:00 02/09/24 16:00 02/09/24 16:00 02/05/24 04:46 FiO2 30 02/05/24 04:46 Objective Labs 02/09/24 04:32 02/09/24 04:32 Labs: Laboratory Results - last 24 hr 02/09/24 04:32 WBC 11.3 H RBC 3.23 L Hgb 9.0 L Hct 27.6 L MCV 85 MCH 27.9 MCHC 32.6 RDW Std Deviation 49.3 H Plt Count 332 Neut % (Auto) 52 Lymph % (Auto) 37 [place] % (Auto) 8 Eos % (Auto) 2 Baso % (Auto) 0 Neut # (Auto) 5.8 Lymph # (Auto) 4.2 [place] # (Auto) 0.9 H Eos # (Auto) 0.2 Baso # (Auto) 0.0 Immature Gran # (Auto) 0.12 H Absolute Nucleated RBC 0.00 Immature Gran % 1 H Nucleated RBC % 0 Sodium 138 Potassium 4.4 D Chloride 104 Carbon Dioxide 25.5 Anion Gap 9 BUN 20 Creatinine 1.2 Estim Creat Clear Calc 75.4 eGFR > 60 BUN/Creatinine Ratio 17 Glucose 89 Calculated Osmolality 277 Calcium 9.3 Corrected Calcium 9.7 Phosphorus 5.2 H Magnesium 1.7 Total Bilirubin 0.4 AST 29 ALT 26 Alkaline Phosphatase 155 H D Total Protein 7.4 Albumin 3.5 Globulin 3.9 H Albumin/Globulin Ratio 0.9 L Impressions Impression: # Gastrointestinal motility disorder # Gastroparesis Continue current management ABG Interpretation ABG results: 12/21/23 12/24/23 12/25/23 15:50 19:45 02:34 ABG pH 7.40 7.23 L D ABG pCO2 40 56 H D ABG pO2 134 H 229 H D ABG HCO3 25 24 ABG O2 Saturation 99 H 100 H ABG Base Excess 0 -5 L VBG pH 7.48 VBG pCO2 35 L VBG pO2 56 VBG Base Excess 2 10/17/24 10/17/24 10/18/24 04:54 10:48 06:56 ABG pH 7.25 L 7.33 L 7.34 L ABG pCO2 52 H 45 43 ABG pO2 93 D 99 95 ABG HCO3 23 23 23 ABG O2 Saturation 97 98 98 ABG Base Excess -5 L -3 -2 VBG pH VBG pCO2 VBG pO2 VBG Base Excess 12/26/23 01/05/24 01/06/24 10:15 08:13 13:50 ABG pH 7.36 7.37 7.42 ABG pCO2 41 38 30 L ABG pO2 87 75 L 90 ABG HCO3 23 22 19 L ABG O2 Saturation 98 96 98 ABG Base Excess -2 -3 -5 L VBG pH VBG pCO2 VBG pO2 VBG Base Excess 01/06/24 01/07/24 01/07/24 21:44 00:30 04:35 ABG pH 7.12 L* D 7.22 L D 7.27 L ABG pCO2 69 H D 52 H D 45 ABG pO2 261 H D 161 H D 209 H D ABG HCO3 22 21 21 ABG O2 Saturation 100 H 99 H 100 H ABG Base Excess -7 L -6 L -6 L VBG pH VBG pCO2 VBG pO2 VBG Base Excess 01/08/24 01/09/24 01/09/24 04:50 04:14 15:49 ABG pH 7.24 L 7.26 L 7.27 L ABG pCO2 47 50 H 51 H ABG pO2 97 D 97 90 ABG HCO3 20 22 23 ABG O2 Saturation 98 98 97 ABG Base Excess -7 L -5 L -4 L VBG pH VBG pCO2 VBG pO2 VBG Base Excess 01/10/24 01/11/24 01/12/24 04:52 04:35 05:24 ABG pH 7.33 L 7.34 L 7.31 L ABG pCO2 43 43 49 H ABG pO2 101 99 106 ABG HCO3 23 23 25 ABG O2 Saturation 98 98 98 ABG Base Excess -3 -3 -2 VBG pH VBG pCO2 VBG pO2 VBG Base Excess Assessment & Plan A&P Narrative abd perforation at surgery over a month ago now delayed wound closure done 12/31/23 dm II. a1c not too bad ckd, with dany changed Friday to renally dosed levaquin/flagyl and stopped flagyl 02/01 changed to po for friday home when off tpn and when ready otherwise. will see again prn, duration of rx is anyone's guess as we have bombed past the usual rx for peritonitis with perforation.suggest another 5d at home if nausea improves. home ok at discretion of surgery. f/u with surgery, no need for outpt ID f/u after release. Time Spent With Patient Time: Total time spent is greater than 50% in coordination of care (as documented) at patient's floor/unit and/or counseling patient:
[2024-02-09] MEDS: MIRTAZAPINE 15 MG TABLET PO (20:09)
[2024-02-10] VITALS: BP 118/81; PULSE 104; PULSE 107; RESP 23; TEMP 36.6; O2SAT 96
[2024-02-10] MEDS: METOCLOPRAMIDE INJ 5 MG/ML VIAL 2 ML 10 MG IVP ×3 (00:23→13:19)
[2024-02-10 04:00] VITALS: BP 111/86; PULSE 106; PULSE 107; RESP 19; TEMP 36.4; O2SAT 96
[2024-02-10 06:05] LABS: Basophils % (Auto) 0 % (0-2.5); Eosinophils # (Auto) 0.2 Thou/mm3 (0.0-0.5); Eosinophils % (Auto) 2 % (0-10); Hematocrit 27.2 % (41.0-53.0); Immature Granulocytes % (Auto) 1 % (0-0); Immature Granulocytes Auto 0.07 Thou/mm3 (0.00-0.00); Lymphocytes # (Auto) 4.6 Thou/mm3 (1.0-4.8); Lymphocytes % (Auto) 39 % (10-50); Mean Corpuscular Hemoglobin 27.1 pg (25.0-35.0); Mean Corpuscular Volume 85 fL (80-100); Monocytes # (Auto) 0.9 Thou/mm3 (0.0-0.8); Monocytes % (Auto) 8 % (0-12); Neutrophils # (Auto) 5.9 Thou/mm3 (1.8-7.7); Neutrophils % (Auto) 51 % (37-80); Nucleated Red Blood Cell % 0 /100 WBC (0); Platelet Count 348 Thou/mm3 (140-440); RDW Standard Deviation 48.5 fL (35.1-43.9); Red Blood Count 3.21 Miln/mm3 (4.50-5.90); White Blood Count 11.7 Thou/mm3 (3.8-10.6)
[2024-02-10 06:12] LABS: Hemoglobin 8.7 g/dL (13.5-16.0)
[2024-02-10 06:24] LABS: Alanine Aminotransferase 22 U/L (10-49); Albumin, Serum 3.7 gm/dL (3.5-5.0); Albumin/Globulin Ratio 1.1 (1.2-2.2); Alkaline Phosphatase 136 U/L (46-116); Anion Gap 8 (7-16); Aspartate Amino Transferase 24 U/L (0-34); BUN/Creatinine Ratio 15 Ratio (12-20); Bilirubin,Total 0.4 mg/dL (0.3-1.2); Blood Urea Nitrogen 16 mg/dL (9-23); Calcium 8.9 mg/dL (8.3-10.6); Calcium (Corrected) 9.1 mg/dL (8.5-10.1); Carbon Dioxide 23.7 mMol/L (20.0-31.0); Chloride 104 mMol/L (98-107); Creatinine (Component) 1.1 mg/dL (0.6-1.3); Globulin 3.5 gm/dL (2.3-3.5); Glucose 98 mg/dL (74-106); Magnesium 1.7 mg/dL (1.6-2.6); Osmolality,Calculated 273 (275-295); Potassium 4.1 mMol/L (3.4-5.1); Sodium 136 mMol/L (136-145); Total Protein 7.2 gm/dL (5.7-8.2); eGFR > 60 See Note
[2024-02-10 08:00] VITALS: BP 127/85; PULSE 106; PULSE 108; RESP 18; TEMP 36.6; O2SAT 96
--- NOTE | 2024-02-10 08:37 | PC.WOUND ---
Home wound vac rental auth remains pending insurance review by Jennifer Pagan
[2024-02-10 08:45] VITALS: BP 127/85; PULSE 108
[2024-02-10] MEDS: METOPROLOL SUCCINATE XL 25 MG TABCR 50 MG PO (08:45)
[2024-02-10] MEDS: Magnesium Sulfate 2 GM Ivpb 2 GM/50 ML BAG IV (08:46)
--- NOTE | 2024-02-10 09:23 | PC.CM ---
Addendum entered by Marilyn Guillaume RN 02/10/24 15:57: I received a call from Charlotte that patient's would vac is ready. I spoke to Dorita at [facility] and she states they called patient's doctor and he has not been seen in over a year. Dorita states if we can get him in tomorrow to the [facility] to be seen, they will see him afterwards. Betina called the [facility] and got an appointment for tomorrow at 10:30. I let [facility] know that patient will be seen tomorrow at 10:30. Dorita states they will follow up with him and see him afterwareds. I gave the number to Betina to have patient call [facility] when he gets home. Addendum entered by Marilyn Guillaume RN 02/10/24 14:41: [facility] has accepted patient and they are ready to see patient when ever he is ready to discharge. I thought patient was ready today but Charlotte states we are still waiting on authorization for the wound vac. SS and doctor are aware. Original Note: Patient accepted by [facility]. They will not be able to see patient until they get authorization. Patient is has a new wound vac and illeostomy. We should not discharge until [facility] is able to see them the next day.
--- NOTE | 2024-02-10 10:24 | PD.SURPROG ---
Documentation for date of: 02/10/24 Subjective Subjective Brief History: As above Narrative: Patient is doing well and having very little pain. Exam Vital Signs Temp Pulse Resp BP Pulse Ox O2 Del Method O2 Flow Rate 97.9 F 108 H 18 127/85 H 96 Room Air 3 02/10/24 08:00 02/10/24 08:45 02/10/24 08:00 02/10/24 08:45 02/10/24 08:00 02/10/24 08:00 02/05/24 04:46 FiO2 30 02/05/24 04:46 His vital signs are normal other than persistent tachycardia which is addressed with metoprolol Routine Abdominal Exam Comments: Abdominal examination is negative Results Results: Laboratory Laboratory Narrative: Laboratory work is within normal limits other than mildly elevated WBC Assessment & Plan Assessment Additional comments: Impression: Patient is ready to go home but unfortunately we are waiting for wound VAC and home health to provide the wound VAC care at home. Patient also will require ostomy care for which all he needs is teaching and appliances Plan Plan: Patient is ready to be discharged anytime these arrangements are made Procedures Procedures Exploratory laparotomy and drainage of the subcutaneous infection and wound VAC application
[2024-02-10] MEDS: HYDROcodone/APAP 7.5/325 TABLET 1 TAB PO (10:47)
[2024-02-10 12:00] VITALS: BP 123/81; PULSE 102; PULSE 104; RESP 20; TEMP 36.6; O2SAT 97
--- NOTE | 2024-02-10 14:21 | PC.SS ---
Addendum entered by Betina Sarmiento 02/10/24 16:05: [facility] will follow patient however SS needed to schedule patient an appointment at the [facility] in order for [facility] to follow patient. Patient has not seen PCP since last year. SS scheduled patient an appointment at the [facility] for tomorrow at 10:30 AM. SS met with patient and patient's and provided them with appointment information and informed them the importance of attending the appointment in order for [facility] to follow. Patient verbalized understanding, SS made patients nurse Roxanne aware. Original Note: SS follow up note; Patient's HH is establish, however patient still needs wound Vac.
--- NOTE | 2024-02-10 14:52 | PC.WOUND ---
Called [facility] spoke with Deepthi, authorization has been completed. Called Cherelle at [facility], authorization completed Ok to release unit for discharge today. Will inform S/S, Transfer RN.
--- NOTE | 2024-02-10 15:10 | ESDS_ITS ---
<Statement entered by Shemar Donato MD - 02/10/24 15:48> I saw and examined the patient, and I agree with current management stated by Dr Alvin MD,PGY1. Plan of care was discussed with the attending physician and resident physician. Disclaimer: Despite multiple revisions, due to the dictation software being used, the document bellow may not be free of grammatical errors including phonetic/typographic errors. However, this does not deter from our commitment to providing health care in the patient's best interest in mind. Dr. Raciel MD, PGY 2 Planned Discharge Date 02/10/24 DS: Providers Provider Date of admission: 12/21/23 23:30 Primary care physician: Nayan Leung MD Admitting Provider: James Weiss MD Attending Provider on Admission: Pierre Hancock MD Consults: 12/24/23 23:54 Referral Wound Care Routine Comment: 12/25/23 11:13 Consult to Infectious Diseases Routine Comment: Consulting Provider: Red Nelson 12/25/23 12:21 Referral Nutritional Services Routine Comment: Instructions: Surgical wound, new ileostomy 12/27/23 11:25 Referral Physical Therapy Urgent Comment: Physician Instructions: 01/06/24 11:30 Consult to Pulmonology Routine Comment: Pleural fluid Consulting Provider: Rodrigo White I 01/12/24 18:09 Referral Speech Therapy Routine Comment: Pt failed Bedside Nurse Swallow Screen 01/13/24 11:10 Referral Speech Therapy Stat Comment: 01/16/24 14:17 Referral Physical Therapy Routine Comment: Physician Instructions: 01/18/24 15:47 Consult to Infectious Diseases Stat Comment: Consulting Provider: Red Nelson Instructions: NEW ORDER PLACED FOR MEROPENEM. 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 VERIFY APPROPRIATENESS FOR ANTIBIOTIC 01/20/24 08:47 Referral OP Wound Healing Dept Routine Comment: Instructions: abdominal wound 01/25/24 10:21 Consult to Nephrology Stat Comment: Consulting Provider: Ray Covarrubias 01/29/24 17:23 Consult to Gastroenterology Stat Comment: Consulting Provider: Carrie Dominguez Attending Provider on DC: Pierre Hancock MD Discharging Provider: Pierre Hancock MD DS: Diagnosis Problem List Completed Was Problem List Reviewed/Reconciled?: Yes Hospital Course Hospital Course Hospital course: Mr. Morales is a 43-year-old gentleman with no past medical history presented to [facility] ([facility] on 12/21/2023 with perforated appendicitis with free purulent material in abdomen, underwent laparoscopic appendectomy 12/21/2023. repeat CT A/P showed pneumoperitoneum,so he had exploratory laparotomy on 12/23 and was found to have small bowel perforation, washout was performed & subsequent diverting ileostomy and wound VAC. 12/28: CT-guided percutaneous drainage catheter placed for subphrenic abscess. 12/31 underwent secondary closure of abdominal incision. 01/06/24 patient was taken to the OR. Findings:Purulent material was seen which was whitish and not foul-smelling, sutures removed, irrigated the wound extensively with saline solution and left #19 round Shelton-Weber on the right gutter, then the wound was closed with wound VAC leaving the fascia completely open. Patient tolerated the procedure well and left operating room in stable condition. Patient was in ICU for septic shock. Intubated and subsequently extubated. Transferred to medical floor. Has been receiving significant amount of antibiotics. Currently with ileostomy, open wound with wound VAC.. Patient received a total of 9 days of vancomycin IV and Zosyn IV for [address] abdomen pelvis 02/06/2024 showed right lower abdomen abscess resolved and right perinephric abscess decreased measuring 14 mm and drain was subsequently removed. Patient also received a total of 9 days IV meropenem and if there is IV Flagyl. He also received Levaquin p.o. from 02/02 - 02/07. TPN was discontinued on 02/07 and patient transition to oral intake. Patient's labs have now returned to baseline and he is fit to be discharged to home with home health and ostomy care. Discharge diagnoses: 1. Sepsis secondary to ruptured appendicitis?resolved 2. Small bowel perforation s/p ileostomy 3. Peritonitis?resolved 4. Subcapsular abscess s/p CT-guided drain placement and removal 5. Right subphrenic abscess 6. Acute kidney injury secondary to ATN?resolving 7. Sinus tachycardia 8. Irritant contact dermatitis?resolved 9. Normocytic anemia 10. Acute respiratory failure with hypoxia?resolved 11. Right pleural effusion?resolved Discharge plan: 1) Call [employer] or further financial assistance with [employer] at [phone], option 1 then 1 and finally option 5. 2) Follow up with Dr. Rubio in 1 week, Call [phone] for appointment. 3) Follow up at [facility], [address] [place] [address]. Call [phone] for appointment. Please bring wound vac and stoma supplies with you to appointment. 4. Wound care to abdomen: Irrigate with normal saline, pat dry with gauze.Fill wound bed with black foam. Drape and trac pad at 125 mmhg continous suction. Change Mon, Wed, Fri and PRN for suction off greater than 2 hours. IF unable to keep wound vac suction apply normal saline wet to dry dressing. Ileostomy care: Cut wafer approx 30 mm circular, warm under arm pit until ready to reapply. Wash hands and remove pouch. Cleanse surrounding skin with warm water until clean. Dry well, keeping stoma drainge off the skin. Reapply pouch using light pressure to adhere to the skin. Change 2 times/week and as needed for leaking or falling off. Empty pouch when 1/2 full. Measure output and keep track. If output greater than 1500ml per day sheryl inform . Drink more then the amout of output measured to avoid dehydration 5. If you experience any worsening or recurrence of symptoms call your PCP, dial 911 or present to the emergency department. We are grateful to be able to participate in Mr. Pyle's care. We wish him the best. Plan of care discussed with Attending Dr. Hancock and PGY2 Dr. Raciel Munguia MD PGY 1 Time Spent with Patient Time attestation: Total time spent providing and/or coordinating discharge services: Time spent: Greater than 30 minutes (35) Home Health Home Health Referral Orders: 02/09/24 11:47 Home Health Referral Routine Reason For Exam: Wound Vac & ileostomy Home-Bound The patient must either because of illness or injury, need the aid of supportive devices such as crutches, canes, wheelchairs, and walkers; the use of special transportation; or the assistance of another person in order to leave their place of residence; OR have a condition such that leaving his or her home is medically contraindicated. In addition, the patient also meets the following criteria: patient is normally unable to leave the home and leaving home requires considerable taxing effort. Addendum to Home Health Certification Practitioner's Certification: I certify that the patient has been under my care in the hospital and the care of attending physician (see below). We had a [id number] encounter on (see date below). My clinical findings indicate that the patient is home bound per the above criteria and the Home Health Services noted in these orders are medically necessary. The primary reason for the [id number] encounter is related to the fact that the patient requires home health services. Date Certifying Ernu-fk-Ruog Physician Encounter: 12/21/23 Physician's Name who will Assume Oversight for Services: Nayan Leung Physician's Phone No.who will Assume Oversight for Service: LEAD REFINER - Community Resources: No PT to Evaluate: No PT to evaluate and provide a treatmnet plan to increase patient's mobility and strength. Wound Care: Yes Home Health RN - Wound Care Order: wound vac & ileostomy IV Therapy: No RN Safety Evaluation: Yes RN to evaluate and create a plan of care that will produce positive outcomes. Palliative Treatment: No Palliative treatment and evaluate the need for hospice. Home Health Aide - Personal Care: No Home Health Aide to assist with any ADL's. Exam Vital Signs Temp Pulse Resp BP Pulse Ox O2 Del Method O2 Flow Rate 97.9 F 102 H 20 123/81 97 Room Air 3 02/10/24 12:00 02/10/24 12:00 02/10/24 12:00 02/10/24 12:00 02/10/24 12:00 02/10/24 12:00 02/05/24 04:46 FiO2 30 02/05/24 04:46 Discharge Plan Plan Patient Disposition: Home w/HOME HEALTH Patient condition on transfer: Stable Prescriptions/Referrals Prescriptions/Med Rec: New mirtazapine 15 mg Tablet 15 mg PO HS Qty: 60 0RF metoprolol succinate 50 mg tablet extended release 24 hr 50 mg PO QDAY Qty: 90 0RF Referrals: Nayan Leung MD [Primary Care Provider] - Patient/Caregiver Discharge Instructions Other Discharge Activity Instructions:: 1) Call [employer] or further financial assistance with [employer] at [phone], option 1 then 1 and finally option 5. 2) Follow up with Dr. Rubio in 1 week, Call [phone] for appointment. 3) Follow up at [facility], [address] [place] [address]. Call [phone] for appointment. Please bring wound vac and stoma supplies with you to appointment. Wound care to abdomen: Irrigate with normal saline, pat dry with gauze.Fill wound bed with black foam. Drape and trac pad at 125 mmhg continous suction. Change Mon, Wed, Fri and PRN for suction off greater than 2 hours. IF unable to keep wound vac suction apply normal saline wet to dry dressing. Ileostomy care: Cut wafer approx 30 mm circular, warm under arm pit until ready to reapply. Wash hands and remove pouch. Cleanse surrounding skin with warm water until clean. Dry well, keeping stoma drainge off the skin. Reapply pouch using light pressure to adhere to the skin. Change 2 times/week and as needed for leaking or falling off. Empty pouch when 1/2 full. Measure output and keep track. If output greater than 1500ml per day pleaese inform MD. Drink more then the amout of output measured to avoid dehydration Education Materials: Exploratory Laparotomy, Nutrition for Wound Healing, Surgery for Appendicitis, Changing Dressing Dc, Ileostomy: Caring For Your Stoma, Ileostomy: Changing Your Pouch, Preventing Surgical Site Infections, Negative Pressure Wound Therapy Print Language: Slovenian Stand Alone Forms: Shira Award Info., Patient Portal Info Letter Discharge Order Discharge Orders: Discharge (Routine); Ordered 02/10/24 Ordered By: Satna Fraga Quality Discharge Quality Measures VTE prophylaxis Attestestation MD Attestation I have examined the patient, reviewed labs and imaging findings, discussed the case with the resident(s), and reviewed entered orders. I agree with the plan of care as outlined in this note. Dr. Hancock
--- NOTE | 2024-02-10 15:45 | PC.WOUND ---
Spoke with Marilyn Sylvester RN, [facility] to see pt tomorrow. Called Dr. Rubio, aware authorization for home health and wound vac/ileostomy care arranged with [facility]. Ok to discharge when ok with primary team. Called Dr. Fraga, made aware discharge arrangements with home health, ileostomy care and wound vac complete. HH to see pt tomorrow. Dr. Rubio ok with discharging. Pt seen with Iman TURCIOS [facility] for translation and at bedside, transition to ready care unit [id number]. Unit/[facility] orientation education given with verbalization of understanding. Good seal obtained at 75mmhg continuos suction. Ready care kit supplies, NS wet/dry dressing supplies and ilesotomy kits x5 given to pt at bedside. Proof of delivery signed and faxed to [facility] with return receipt. Remaining discharge endorsed to Roxanne TURCIOS. Please also see Wound RN notes by Lucille TURCIOS.
[2024-02-10 16:00] VITALS: BP 134/90; PULSE 103; RESP 22; TEMP 36.3; O2SAT 99
--- NOTE | 2024-02-10 16:32 | PC.PT ---
Patient will be DC from physical therapy services secondary to he is independent while ambulating with no assistive devices.
--- NOTE | 2024-02-11 12:15 | PC.CM ---
sent dc summary and updated clinicals to Jayson MEJIA.
--- NOTE | 2024-02-17 07:46 | ESDS_ITS ---
RE: MAHOGANY MCCAIN : 1980 DATE OF ADMISSION: 12/21/2023 DATE OF DISCHARGE: 02/10/2024 17:55 There has been another summary dictated by the hospitalist. This is from the surgical point of view. FINAL DIAGNOSES: 1. Perforated appendicitis with abscess, injury to the ileum requiring exploration and ileostomy, acute kidney injury, pneumonia on the right side with effusion, persistent tachycardia during the entire hospital stay. 2. Hypertension. 3. Mechanical ventilation in intensive care unit after multiple exploration and due to respiratory failure 4. Drainage of abscess multiple times from the abdomen and placement of a chest tube for drainage of fluid in the right lung, probably effusion by interventional radiologist 5. Wound VAC application and multiple drainage of the intraabdominal collection, both in the right gutter and in the subphrenic area by interventional radiologist. 6. Total parenteral nutrition with antibiotic therapy 7.Acute kidney injury REASON FOR ADMISSION: This patient was admitted on 12/21/2023 with a history of abdominal pain of 1-day duration, which was localized to the right lower quadrant. Evaluation in the emergency room showed WBC around 18,[address] scan showed acute appendicitis. The patient was taken to the operating room and underwent laparoscopic appendectomy. The operative procedure was difficult because of extensive adhesions between the appendix, cecum and the ileum. During the course of dissection, a small laceration happened in the ileum, which was stapled after recognition during the surgery. Postoperatively, the patient was found to have a persistent tachycardia and abdominal distention. By third postoperative day, the patient was found to have a marked tachycardia and rapid response was called. CT scan by this time showed large amounts of fluid and air in the abdomen. He was therefore taken to the operating room for exploratory laparotomy and was found to have leakage at the staple line where the terminal ileum was closed. There was no injury to the large bowel, but there was a fair amount of small bowel contamination in the abdominal cavity. Primary anastomosis could not be done because of the contamination and therefore, the patient had a diverting ileostomy. The patient was therefore kept in ICU postoperatively, during which time he developed acute kidney injury. Then on 12/26, which was 3 days after surgery, he was extubated and transferred out of ICU. By next week, the patient continued to have difficulty in eating, even though GI tract wa available for feeding. Because of persistent pain and possibly sepsis, due to both perforated appendicitis and ileal injury, the patient required nutritional support and was placed on TPN. Then on 12/31, a secondary closure of the abdomen was performed. The incision was left open during the 12/23 surgery due to massive contamination and a week later on 12/31, I scheduled the patient for secondary closure which was accomplished. Postoperatively, the patient againhad a fluid in the right side of the lung, which required CT-guided drainage and a small chest tube was placed by the radiologyst. On 01/05, the patient was taken to the operating room to see if there was any further collection in the abdomen due to lack of improvement in his condition despite aggressive antibiotic therapy. Exploratory laparotomy was performed, but it was difficult to enter the abdomen. There was some fluid collection in the subcutaneous tissue, which was drained and I placed a large size #19 Shelton Weber after making sure there was no collection, but a formal exploration could not be done due to omentum sealing the wound and my hesitancy in exploring it for fear of potential injury to the bowel. After this, the patient was kept in ICU. While he was in ICU, he continued to have leukocytosis and required respiratory support. Subphrenic abscess was found on the CT scanand it was drained by the radiologist. This abscess was located on the right side of abdomen in the vicinity of original surgery .The patient also was found to have empyema causing persistent effusion.IR placed a chest tube. The patient was then transferred out of ICU. On the floor, the patient continued to have leukocytosis and he was therefore continued on TPN because he was not eating well. He had difficulty swallowing. Consultation was obtained with financial operations clerk to see if there was any problem in esophagus such as thrush due to antibiotic therapy for a prolonged period of time. No thrush was found, but the patient had undergone dilatation of the esophagus and after the endoscopy by Dr. Dominguez, the patient started eating fairly well. The patient again underwent some CT scan evaluation which showed collection in the subphrenic area as well as in the right side of abdomen. These have to be drained by interventional radiologist, Dr. Caceres. The patient's WBC came down towards normal value after this drainage. Meanwhile, the patient developed another episode of ATN which resolved with fluid intake. Consultation was obtained by rag sorter who suggested that it is probably prerenal secondary to hypovolemia. The patient continued to have a sinus tachycardia postoperatively and it was evaluated by the hospitalist. The patient was placed on metoprolol succinate 50 mg tablets, on mirtazapine for anxiety. At this time, the patient was feeling comfortable except the fact that the abdominal wound was open and wound VAC was in place. I decided to leave the wound VAC and wait for the wound to close and accept possibly a hernia in the abdominal wall. His ileostomy was working well and the patient was advised how to manage his ileostomy. Then gradually, the total parenteral nutrition was stopped in the first week of February and then home health arrangements were made to follow him with wound VAC at home after discharge. The patient also was given Dale #20 tablets for pain relief. The patient will be seen in my office every week until his abdominal wound heals. I advised that the patient have to have this ileostomy for a while and then we will be reconnecting the ileostomy with ileocolic anastomosis at a future date. Please note that because of the prolonged hospitalization of the patient more than 6 weeks, some of the details are difficult to place on the discharge summary and may have to be evaluated by looking at the entire chart. DT: 08:05:35 TT: 01:27:00 Ref: [id number] - TID: [id number] [email or web address]
== END 2024-02-10 17:55 | disposition home health service (06) | DRG 230 ==
LOC: SERX 18:58 → SERHOLD 20:51 → S3SX 23:38 → S2SX 12-25 08:16 → S3SX 12-25 11:14 → S2SX 12-25 11:14 → S2NX 12-30 07:33 → S2SX 01-07 12:01 → S2NX 01-13 10:26
PROVIDERS: Internal Medicine; Internal Medicine Infectious Disease; Physician Assistant; Radiology Diagnostic Radiology; Specialist; Student in an Organized Health Care Education/Training Program; Admitting Provider Surgery; Emergency Provider Emergency Medicine; PCP Family Medicine; Visit Provider Student in an Organized Health Care Education/Training Program
PROC: 0DTJ4ZZ Resection of Appendix, Percutaneous Endoscopic Approach (ICD-10-PCS; CPT 44970; principal; 2023-12-21 20:30)
PROC: 0D1B0ZB Bypass Ileum to Ileum, Open Approach (ICD-10-PCS; CPT 49000; principal; 2023-12-24 21:30)
PROC: 0WQF0ZZ Repair Abdominal Wall, Open Approach (ICD-10-PCS; principal; 2024-01-01 16:30)
PROC: 0J980ZZ Drainage of Abdomen Subcutaneous Tissue and Fascia, Open Approach (ICD-10-PCS; CPT 49000; principal; 2024-01-06 19:00)
PROC: 0D718ZZ Dilation of Upper Esophagus, Via Natural or Artificial Opening Endoscopic (ICD-10-PCS; CPT 43239; principal; 2024-01-29 20:00)
DX: K35.32 Acute appendicitis with perforation, localized peritonitis, and gangrene, without abscess (principal); E66.9 Obesity, unspecified; Z68.34 Body mass index [BMI] 34.0-34.9, adult; A41.9 Sepsis, unspecified organism; D64.9 Anemia, unspecified; E11.43 Type 2 diabetes mellitus with diabetic autonomic (poly)neuropathy; E78.1 Pure hyperglyceridemia; E46 Unspecified protein-calorie malnutrition; E83.39 Other disorders of phosphorus metabolism; E83.42 Hypomagnesemia; E83.51 Hypocalcemia; E86.1 Hypovolemia; E87.1 Hypo-osmolality and hyponatremia; E87.4 Mixed disorder of acid-base balance; E87.6 Hypokalemia; E87.8 Other disorders of electrolyte and fluid balance, not elsewhere classified; F41.9 Anxiety disorder, unspecified; K20.90 Esophagitis, unspecified without bleeding; I10 Essential (primary) hypertension; K22.2 Esophageal obstruction; K29.60 Other gastritis without bleeding; K29.80 Duodenitis without bleeding; K31.84 Gastroparesis; J18.9 Pneumonia, unspecified organism; J95.821 Acute postprocedural respiratory failure; L24.9 Irritant contact dermatitis, unspecified cause; N15.1 Renal and perinephric abscess; K91.71 Accidental puncture and laceration of a digestive system organ or structure during a digestive system procedure; J91.8 Pleural effusion in other conditions classified elsewhere; N17.0 Acute kidney failure with tubular necrosis; R57.1 Hypovolemic shock; R65.21 Severe sepsis with septic shock; T81.31XA Disruption of external operation (surgical) wound, not elsewhere classified, initial encounter; R04.2 Hemoptysis; D64.89 Other specified anemias; K63.1 Perforation of intestine (nontraumatic); Z87.891 Personal history of nicotine dependence; Z68.29 Body mass index [BMI] 29.0-29.9, adult; Z79.899 Other long term (current) drug therapy; Y83.6 Removal of other organ (partial) (total) as the cause of abnormal reaction of the patient, or of later complication, without mention of misadventure at the time of the procedure; Y92.230 Patient room in hospital as the place of occurrence of the external cause
CPT/HCPCS: 36415; 36600; 71045; 71046; 71275; 74019; 74022; 74176; 74177; 75989; 76770; 76999; 77001; 77012; 78708; 80048; 80051; 80053; 80069; 80202; 80307; 81001; 82150; 82247; 82248; 82550; 82570; 82803; 82945; 83036; 83605; 83615; 83690; 83735; 83880; 84075; 84100; 84145; 84155; 84157; 84300; 84439; 84443; 84450; 84460; 84478; 85014; 85018; 85025; 85379; 85610; 85730; 86703; 86803; 86850; 86870; 86900; 86901; 86921; 86922; 86923; 87040; 87070; 87075; 87081; 87086; 87106; 87205; 89051; 92610; 93005; 93306; 94002; 94003; 94640; 94660; 94664; 94667; 96361; 96365; 96372; 96375; 97162; 97163; 99285; A4216; A4217; A4649; A9562; B4185; C1713; C1729; C1751; C1769; C1894; J0131; J0360; J0612; J0613; J1100; J1200; J1450; J1642; J1643; J1815; J1885; J1940; J1956; J2185; J2247; J2250; J2270; J2371; J2405; J2470; J2543; J2704; J2765; J2997; J3010; J3370; J3371; J3411; J3475; J3480; J3490; J7030; J7040; J7042; J7050; J7120; J7639; P9016; P9045; P9047; Q0138; Q5105; Q9967; A9270; C1725; J1644; J1805; J1836; J1920; J2248

== ENCOUNTER 2024-02-11 09:46 | Outpatient (AMB) | payer MEDICAID, SELFPAY ==
[2024-02-11 10:06] VITALS: BP 132/90; PULSE 126; RESP 16; TEMP 37.1
--- NOTE | 2024-02-11 10:06 | ACNOTE_ITS ---
Vital Signs 02/11/24 10:06 Weight 73.709 kg Weight Measurement Method Standing Scale BP 132/90 H Blood Pressure Source Automatic Cuff Blood Pressure Location Left Upper Arm Position Sitting Respiration 16 Pulse 126 H Pulse Source Monitor Temp 98.7 F Temp Source Oral Allergies/Meds Allergies & Medications Allergies No Known Allergies Allergy (Verified 02/11/24 10:07) Medication Reconciliation mirtazapine 15 mg tablet 15 mg PO HS #60 tabs 02/09/24 [Rx Confirmed 02/11/24] metoprolol succinate 50 mg tablet,extended release 24 hr 50 mg PO QDAY #90 tabs 02/10/24 [Rx Confirmed 02/11/24] MA Intake Visit Data Collection New Patient or Established: Established Patient (seen at [facility] within 3 years) Seen by Clinical Staff ONLY (RN/MA): No Pain Present Currently: Yes Pain Location: Unable to identify (SIDES) Pain scale:: 6 Pain Scale Used: Fernandez-Montanez/Numerical PCP or OBGYN visit in last 3 months: No Do You Feel Safe at Home: Yes Authorities Contacted: N/A Smoking Status Smoking Status: Never smoker Immunization / Flu Flu Vaccine in the Last 12 Months: No Flu Vaccine Exclusion Criteria: No Exclusion Criteria Past Medical History Past Medical History NEUROLOGIC: Negative Seizures CARDIAC: Negative Cardiac Disorders or Congestive Heart Failure RESPIRATORY: Negative Chronic Obstructive Pulmonary Disease (COPD) or Asthma GENITOURINARY: Negative Renal Disease ENDOCRINE: Negative Diabetes Mellitus Type 1 or Diabetes Mellitus Type 2 HEMATOLOGIC: Negative Sickle Cell Disease OTHER HISTORY: Negative Blood Transfusions, Blood Transfusion Reaction or Anesthesia Reactions Social History SMOKING STATUS: Smoking status: Never smoker ALCOHOL: Alcohol Intake: Never HOUSING: Housing: House LIVES WITH: Lives With: Family and Spouse Patient Portal Questionaires Social History Living Situation History Housing: House Tobacco History Smoking Status: Never smoker Alcohol History Alcohol Intake: Never Domestic Abuse History Do You Feel Safe at Home: Yes Review of Systems Report any current symptoms Only answer those that you have currently: Past Medical History Past Medical History Have you ever been diagnosed with any of the following: Neurological Problems Seizures: No Cardiology Problems Congestive Heart Failure: No Respiratory Problems Chronic Obstructive Pulmonary Disease (COPD): No Asthma: No Genital/Urinary Problems Renal Disease: No Endocrine Problems Diabetes Mellitus Type 1: No Diabetes Mellitus Type 2: No Blood Problems Sickle Cell Disease: No Other Problems Blood Transfusions: No Blood Transfusion Reaction: No Anesthesia Reactions: No History of Present Illness [facility] Narrative Andrew Pyle is here for post-op follow-up. He presented at [facility] with sepsis on 12/20/2023. He is s/p laparoscopic appendectomy 12/21/2023 followed by ex-lap for perforated small bowel on 12/28. Patient subsequently underwent CT- guided percutaneous drainage catheter placement for subphrenic abscess. Abdomen was closed on 12/31. Patient completed ABX inpatient and was discharged on 02/10/24. Reports mild pain, and a single episode of vomiting-green content today but has been tolerating oral diet since then. Passing soft, brown stool through ostomy bag which he has not replaced since discharge. Denies fever, headaches, chest pain, sob, diarrhea, blood in stool, discharge or bleeding from wound vac or incision sites. He continued on wound vac which contains small amount of brown fluid, without blood or puss. Ostomy claudine with soft brown stool, no blood. Dressing inplace and intact. Patient advised to follow-up with Dr. Rubio with general surgery within 1 week. I provided the phone number for Dr. Rubio's office. A also provided the phone number for wound-care supply. Patient has an appt scheduled for home wound care today at 1PM. PMHx: none PSHx: recent appendectomy as above Meds: None SH: denies tobacco, alcohol, or drugs Objective/Exam Narrative Physical exam: GENERAL: normal-appearing adult male, NAD HEENT: NCAT.?APRYL. Oral mucosa is moist. Patent Nares NECK: Supple, nontender, no thyromegaly, no meningismus, no JVD, no step offs CHEST: Symmetrical, atraumatic, and with equal expansion, Nontender on palpation no deformity and no crepitus. CARDIOVASCULAR: slightly tachycardic, regular rhythm, no m/g/r LUNGS: CTAB, no w/r/r. Symmetrical chest rise. No intercostal subcostal retraction. ABDOMEN: Soft, flat, mild tenderness diffusely. Osteomy bag in place and intact, containing soft brown stool without blood or pus. Wound vac in place containing brown fluids, no blood or pus. Abdominal dressing intact without signs of infection or discharge. Port sites without bleed, discharge or signs of infection. No guarding/rebound tenderness/masses. +BS EXTREMITIES: Nontender.? No edema/cyanosis.?Moves all 4 extremities well, with full ROM and good CSM. SKIN: Warm and dry, no jaundice/rashes. MSK: No lumbar or midline, no CVA, no paraspinal muscle spasm or tenderness. NEURO: SILVA x4, CN II-XII grossly intact.?No focal neurologic deficits. PSYCHIATRIC: Normal mood and affect, cooperative, no SI or HI or hallucinations. Assessment & Plan Diagnosis / Problem List (1) Encounter for surgical aftercare following surgery on the digestive system: Status: Acute Assessment & Plan: 12/20 admitted to [facility] for appendicitis s/p laparoscopic appendectomy 12/21/2023 followed by ex-lap for perforated small bowel on 12/28. CT-guided percutaneous drainage catheter placement for subphrenic abscess. Abdomen was closed on 12/31. Patient completed ABX inpatient and was discharged on 02/10/24. Reports mild pain, and a single episode of vomiting-green content today but has been tolerating oral diet since then. Passing soft, brown stool through ostomy bag which he has not replaced since discharge. Denies fever, headaches, chest pain, sob, diarrhea, blood in stool, discharge or bleeding from wound vac or incision sites. He continued on wound vac which contains small amount of brown fluid, without blood or puss. Ostomy claudine with soft brown stool, no blood. Dressing inplace and intact. Plan: ? Advised f/u with general surgery within 1 week, Dr. Rubio's phone number provided ? Advised f/u with wound supply clinic as instructed by gen-surg ? Patient has appt with [id number] today at 1PM ? Continue taking medications as instructed by your general surgeon ? return to emergency room if symptoms persist, worsen, or new symptoms including fever, chills, bleeding, nausea/vomiting develop. ? Follow general-surgery recommendations (2) Encounter to establish care: Status: Acute Assessment & Plan: No past medical history, not currently taking any medication. Denies previous illness other than recent admission for appendectomy as above. Vaccine status unknown Labs reviewed from hospital visit, glucose normal, hgb 8.7 likely blood loss and nutritional deficiency from surgery, WBC was trending down. Plan: ? Advised return to office once recovered from surgery and once cleared by surgeon. Will need vaccine update and age-related screening. (3) Tachycardia: Status: Acute Assessment & Plan: Patient persistently tachycardic during recent visit which was also present on exam today. EKG then showed sinus tach. Denies chest pain, sob, or palpitation. Likely related to previous sepsis or surgical trauma. Plan: ? will need further work-up once surgical issues resolved. Orders: Referrals Wound Healing Z48.815 - Encounter for surgical aftercare following surgery on the digestive system Additional Assessment Attending note: I, Heraclio Malave MD, attest that I was physically present for the augustine portions of the service and evaluated the patient with the resident and I reviewed and discussed the case with the resident and agree with the resident's findings and plans of care as documented above. New patient to clinic. Complicated hospitalization for sepsis with laparoscopic appendectomy followed by ex lap for perforated small bowel. Had CT-guided percutaneous drainage cath eter placement for subphrenic abscess. Abdomen closed on 12/31. He was on IV antibiotics for an extended period of time. Discharge from hospital on . Tolerating oral diet. 1 episode of emesis. Passing brown stool through ostomy. Has wound VAC on abdomen. Needs to follow-up with general surgery within the week. Monitor borderline tachycardia. Heraclio Malave MD Physician Billing New Patient New Patient: E/M Level 3-CPT 91601 Office Procedures [facility] Level of Care Nursing/Assessment Patient Status: Established Patient Nursing Assessment/Reassessment: Medication Reconciliation, Update PMH in EMR and Vital Signs Coordination of Care: Complex Care and Chronic Disease 1-5, Education Complex Pt/Fam and Staff clarify orders Established Patient Charge Established Patient Point Assignment: 85 Established Patient Point Charge: Level 3 (80-115)
== END 2024-02-11 10:41 | disposition home or self-care (01) ==
LOC: HODAHC 09:46
PROVIDERS: Supervising Provider Internal Medicine
DX: Z48.815 Encounter for surgical aftercare following surgery on the digestive system (principal); R00.0 Tachycardia, unspecified; Z90.89 Acquired absence of other organs
CPT/HCPCS: 99213; G0463

== ENCOUNTER → 2024-02-25 | Outpatient (CLI) | payer MEDICAID, SELFPAY | END | disposition home or self-care (01) | PROVIDERS: Visit Provider Student in an Organized Health Care Education/Training Program | DX: L02.211 Cutaneous abscess of abdominal wall (principal); T81.89XA Other complications of procedures, not elsewhere classified, initial encounter; D64.9 Anemia, unspecified | CPT/HCPCS: 99214; G0463 ==

== ENCOUNTER → 2024-03-05 | Outpatient (CLI) | payer MEDICAID, SELFPAY ==
--- NOTE | 2024-03-05 11:09 | XR_ITS ---
Examination: CT abdomen with intravenous contrast CT pelvis with intravenous contrast 2-D coronal reconstructions 2-D sagittal reconstructions Date and time of exam:March 05, 2024 1213 hours Comparison February 06, 2024. INDICATIONS: Status post appendectomy with history abdominal abscesses CTDI: vol (mGy) 15.86 DLP: (mGycm) 614 Technique: Multiple axial sections of the abdomen and pelvis have been obtained. 64 slice high-resolution scanner used. 3 mm axial sections have been obtained, post intravenous injection 60 cc [id number] 2-D sagittal, coronal reconstructions obtained. Low dose protocols were performed. One or more of the following dose reduction techniques were used; automated exposure control, adjustment of the mA and/or KV according to patient size, use of iterative reconstruction technique. Findings: Small bilateral pleural effusions Fatty liver Smaller fluid collection lateral to the liver, currently 4.1 x 1.1 cm compared to 11.3 x 2.2 cm Spleen is not enlarged Contracted gallbladder No pancreatic or adrenal mass No hydronephrosis The abscess collection below the liver has recurred, measuring 5.6 x 3.2 x 12.0 cm No bowel obstruction Right ileostomy Contracted urinary bladder with wall thickening Intact osseous structures IMPRESSION: The abscess collection below the liver has recurred, currently measuring 5.6 x 3.2 x 12.0 cm
== END | disposition home or self-care (01) ==
LOC: SCAT 10:44
PROVIDERS: PCP Family Medicine; Referring Provider Surgery; Visit Provider Surgery
DX: K75.0 Abscess of liver (principal)
CPT/HCPCS: 74177; A4649; Q9967

== ENCOUNTER 2024-03-07 10:47 | Inpatient (IN) | payer MEDICAID, SELFPAY ==
[2024-03-07 11:06] VITALS: BMI 26.5
[2024-03-07 12:00] VITALS: BP 115/83; PULSE 115; RESP 17; TEMP 36.7; O2SAT 98
--- NOTE | 2024-03-07 12:21 | PC.NURSE ---
THE CALL TO THE INTERPRATOR INITATED FOR THE TRANSLATION IN GERMAN. sue interprator ID [id number] used for the translation.
[2024-03-07] MEDS: ceFAZolin/D5W 1 GM IVPB 1 GM/50 ML BAG IV ×2 (13:51→21:00)
[2024-03-07] MEDS: metroNIDAZOLE/NS 500 MG IVPB 500 MG/100 ML BAG 100 MG IV ×2 (13:52→21:00)
[2024-03-07 14:21] LABS: Basophils % (Auto) 0 % (0-2.5); Eosinophils # (Auto) 0.2 Thou/mm3 (0.0-0.5); Eosinophils % (Auto) 1 % (0-10); Hematocrit 26.7 % (41.0-53.0); Immature Granulocytes % (Auto) 1 % (0-0); Immature Granulocytes Auto 0.08 Thou/mm3 (0.00-0.00); Lymphocytes # (Auto) 3.3 Thou/mm3 (1.0-4.8); Lymphocytes % (Auto) 21 % (10-50); Mean Corpuscular Hemoglobin 27.2 pg (25.0-35.0); Mean Corpuscular Volume 82 fL (80-100); Monocytes # (Auto) 1.4 Thou/mm3 (0.0-0.8); Monocytes % (Auto) 9 % (0-12); Neutrophils # (Auto) 10.5 Thou/mm3 (1.8-7.7); Neutrophils % (Auto) 68 % (37-80); Nucleated Red Blood Cell % 0 /100 WBC (0); Platelet Count 492 Thou/mm3 (140-440); RDW Standard Deviation 44.3 fL (35.1-43.9); Red Blood Count 3.24 Miln/mm3 (4.50-5.90); White Blood Count 15.5 Thou/mm3 (3.8-10.6)
[2024-03-07 14:23] LABS: Hemoglobin 8.8 g/dL (13.5-16.0)
[2024-03-07 14:40] LABS: Alanine Aminotransferase 19 U/L (10-49); Albumin, Serum 4.2 gm/dL (3.5-5.0); Albumin/Globulin Ratio 1.1 (1.2-2.2); Alkaline Phosphatase 142 U/L (46-116); Anion Gap 12 (7-16); Aspartate Amino Transferase 16 U/L (0-34); BUN/Creatinine Ratio 14 Ratio (12-20); Bilirubin,Total 0.3 mg/dL (0.3-1.2); Blood Urea Nitrogen 11 mg/dL (9-23); Calcium 9.3 mg/dL (8.3-10.6); Calcium (Corrected) 9.3 mg/dL (8.5-10.1); Carbon Dioxide 21.1 mMol/L (20.0-31.0); Chloride 103 mMol/L (98-107); Creatinine (Component) 0.8 mg/dL (0.6-1.3); Estimated Creatinine Clearance 99.5 mL/min (>60); Globulin 3.8 gm/dL (2.3-3.5); Glucose 116 mg/dL (74-106); Osmolality,Calculated 272 (275-295); Potassium 3.5 mMol/L (3.4-5.1); Sodium 136 mMol/L (136-145); eGFR > 60 See Note
[2024-03-07 16:00] VITALS: BP 122/76; PULSE 110; RESP 17; TEMP 36.6; O2SAT 98
--- NOTE | 2024-03-07 16:37 | PD.SURHP ---
HPI Date of Admission 03/07/24 10:47 Chief Complaint Chief Complaint: Patient is admitted electively for drainage of the intra-abdominal collection by the radiologist HPI Patient had spent extensive stay in the hospital following an intra-abdominal abscess that required multiple percutaneous drainage by the interventional radiologist. Patient was discharged about a month ago and he was followed by me in the office. But he had a slightly elevated WBC and the repeat CT scan showed some more collection in the subhepatic area. The radiologist felt that it could be drained percutaneously. Patient is therefore admitted for antibiotic therapy Meds Home Medications and Allergies Allergies Allergy/AdvReac Type Severity Reaction Status Date / Time No Known Allergies Allergy Verified 02/11/24 10:07 Exam Vital Signs Temp Pulse Resp BP Pulse Ox O2 Del Method 98.0 F 115 H 17 115/83 98 Room Air 03/07/24 12:00 03/07/24 12:00 03/07/24 12:00 03/07/24 12:00 03/07/24 12:00 03/07/24 12:00 Narrative Exam Physical examination revealed a well-built well-nourished male who appeared to be in his stated age. He is 5 foot 2 inches tall weighing 145 pounds with BMI of 26.5. His vital signs are normal other than tachycardia with heart rate around 115 Routine Respiratory Exam Comments: Clear breath sounds on both sides Routine Abdominal Exam Comments: Abdominal examination shows narrowing midline incision which has been treated with wound VAC. There is an ileostomy which is draining normal stools Results Results: Laboratory Laboratory Narrative: Patient's laboratory workup showed WBC of 15,000. His chemistry is within normal limits Results: Imaging Imaging narrative: CT scan performed last Friday showed subhepatic collection probably residual abscess Assessment & Plan Additional Assessment Additional comments: Impression: Residual intra-abdominal abscess Plan Plan: We shall arrange for radiologist to drain the abscess tomorrow. We have tentatively started him on Ancef and Flagyl to cover the aerobic and anaerobic bacteria. Quality Measures Quality Measures VTE prophylaxis and none
[2024-03-07 20:00] VITALS: BP 114/80; PULSE 118; RESP 17; TEMP 36.8; O2SAT 97
[2024-03-08] VITALS (9 sets, daily range): BP systolic 109–123; BP diastolic 69–79; PULSE 94–118; RESP 14–18; TEMP 36.2–36.8; O2SAT 96–100
[2024-03-08] MEDS: ceFAZolin/D5W 1 GM IVPB 1 GM/50 ML BAG IV ×3 (05:06→21:51)
[2024-03-08] MEDS: metroNIDAZOLE/NS 500 MG IVPB 500 MG/100 ML BAG 100 MG IV ×3 (05:06→22:18)
--- NOTE | 2024-03-08 08:02 | XR_ITS ---
Examination: CT-guided percutaneous placement abscess drainage catheter right lower abdomen abscess CT abdomen without intravenous contrast Date and time of procedure: March 08, 2024 1011 hours INDICATIONS: Postop appendectomy patient with recurrent right lower abdomen abscess, depicted on CT abdomen pelvis March 05, 2024 Informed consent provided. A timeout was completed verifying correct patient, procedure, site and positioning. Technique: Axial 3 mm sections were obtained for localization of the right lateral lower abdomen abscess Appropriate area is marked. The patient's site was prepped and draped in sterile fashion Maximal sterile barrier technique utilized, including hand hygiene Local anesthesia was obtained with 1% lidocaine. Low dose protocols were performed. One or more of the following dose reduction techniques were used; automated exposure control, adjustment of the mA and/or KV according to patient size, use of iterative reconstruction technique. Utilizing CT fluoroscopic guidance 5 Marshallese catheter placed in the right lower abdomen abscess 0.35 wire guide is introduced through the catheter followed by dilators and an 8 Marshallese abscess drainage catheter in proper position under CT fluoroscopic visualization Patient appears in stable condition during this procedure. At completion of the procedure, the patient is in satisfactory condition. Estimated blood loss 2 cc Complete culture and sensitivity report to follow. Impression: Successful CT-guided percutaneous placement abscess drainage catheter right lower abdomen abscess
--- NOTE | 2024-03-08 08:14 | PC.NURSE ---
Report received from Chineud TURCIOS, PT malaysian speaking, stable, GCS 15 and in room air. I ordered PT/INR and PTT STAT before we start with procedure. i will bring pt down via gurney when time is appropriate
--- NOTE | 2024-03-08 09:08 | PC.SS ---
SS follow up note; Patient is on IV ABX, possible abscess drainage today.
--- NOTE | 2024-03-08 09:31 | PC.SS ---
Andrew Pyle is 44-year-old male admitted for Intra-abdominal Abscess. SS met with patient at bedside to complete initial assessment. Patient confirmed demographic information. Patient identifies his Jess Waldron [phone] as his surrogate decision maker. Patient resides at home with his . Pt is able to complete all ADL?s independently, no need for any source of DME. Patient's PCP is Nayan Leung. At time of discharge patient will return home. will provide transportation upon Discharge. No further intervention required at this time, social work coordinator would be available to address any further concerns. PCP: Nayan Leung Next of Kin; , Jess Waldron [phone] Discharge plan: Home
--- NOTE | 2024-03-08 09:44 | XR_ITS ---
Examination: CT abdomen and pelvis without contrast. Coronal 3-D reconstructions. Sagittal 2-D reconstructions. Date and time of exam:March 08, 2024 0949 hours INDICATIONS: History abdominal pain and multiple abscesses post appendectomy last month CTDI: vol (mGy): 7.94 DLP: (mGycm): 481 Technique: Axial images of the abdomen have been obtained, 3 mm slice thickness Intravenous contrast material has not been administered. Low dose protocols were performed. One or more of the following dose reduction techniques were used; automated exposure control, adjustment of the mA and/or KV according to patient size, use of iterative reconstruction technique. Findings: Small bilateral pleural effusions mild fluid subcapsular and lateral to the liver again noted No intrahepatic lesion No gallstones No hydronephrosis Abscess below the liver on the right side is again depicted without significant change Aorta normal size Urinary bladder intact IMPRESSION: Stable abscess right lower abdomen below the liver
[2024-03-08] MEDS: fentaNYL CIT INJ 50 mCg/ML AMP 2ML 100 MCG IVP (10:16)
[2024-03-08 10:22] LABS: INR 1.2 (0.9-1.3); Partial Thromboplastin Time 28.6 Seconds (22.0-36.0); Prothrombin Time 13.1 Seconds (9.0-12.2)
[2024-03-08] MEDS: LIDOCAINE INJ PF 1% 5 ML VIAL 10 ML INFL (10:28)
--- NOTE | 2024-03-08 13:32 | PD.SURPROG ---
Documentation for date of: 03/08/24 Subjective Subjective Brief History: Patient had spent extensive stay in the hospital following an intra-abdominal abscess that required multiple percutaneous drainage by the interventional radiologist. Patient was discharged about a month ago and he was followed by me in the office. But he had a slightly elevated WBC and the repeat CT scan showed some more collection in the subhepatic area. The radiologist felt that it could be drained percutaneously. Patient is therefore admitted for antibiotic therapy Narrative: The patient underwent drainage of the abscess from the abdominal cavity. Exam Vital Signs Temp Pulse Resp BP Pulse Ox O2 Del Method O2 Flow Rate 97.1 F 94 16 109/76 99 Room Air 2 03/08/24 12:00 03/08/24 12:00 03/08/24 12:00 03/08/24 12:00 03/08/24 12:00 03/08/24 12:00 03/08/24 10:38 Assessment & Plan Assessment Additional comments: Pression: Status post drainage of the abscess abdominal cavity Plan Plan: We shall keep him for another day or 2 to irrigate the wound and then discharge him. We also wait for the culture report.
[2024-03-08] MEDS: HYDROcodone/APAP 5/325 TABLET 1 TAB PO (13:56)
--- NOTE | 2024-03-08 14:50 | PC.NURSE ---
nurse Charlotte put the dressing on the midline abd. no more wound vac, per Wound nurse he not needed.
[2024-03-09] VITALS: BP 147/87; PULSE 82; RESP 18; TEMP 36.2; O2SAT 92
[2024-03-09 04:00] VITALS: BP 111/77; PULSE 115; RESP 17; TEMP 37.1; O2SAT 97
[2024-03-09] MEDS: ceFAZolin/D5W 1 GM IVPB 1 GM/50 ML BAG IV ×3 (05:05→21:10)
[2024-03-09] MEDS: metroNIDAZOLE/NS 500 MG IVPB 500 MG/100 ML BAG 100 MG IV ×3 (05:50→21:51)
[2024-03-09 07:44] VITALS: BP 98/70; PULSE 103; RESP 17; TEMP 37.1; O2SAT 97
[2024-03-09 11:04] VITALS: BMI 28.1
[2024-03-09 12:00] VITALS: BP 123/80; PULSE 103; RESP 17; TEMP 36.4; O2SAT 97
--- NOTE | 2024-03-09 12:37 | PC.NURSE ---
dr lopez at bedside for irrigation . patient made aware .
--- NOTE | 2024-03-09 14:04 | PC.CM ---
Patient is opened to [facility]. If patient discharged home he will need home health orders.
[2024-03-09 15:32] VITALS: BP 101/67; PULSE 108; RESP 17; TEMP 36.4; O2SAT 97
[2024-03-09 20:00] VITALS: BP 115/83; PULSE 109; RESP 16; TEMP 37.2; O2SAT 97
[2024-03-09] MEDS: HYDROcodone/APAP 5/325 TABLET 1 TAB PO (21:27)
[2024-03-10] VITALS (8 sets, daily range): BP systolic 96–120; BP diastolic 60–81; PULSE 86–106; RESP 16–18; TEMP 36.2–36.9; O2SAT 95–98
[2024-03-10] MEDS: metroNIDAZOLE/NS 500 MG IVPB 500 MG/100 ML BAG 100 MG IV ×3 (04:59→23:54)
[2024-03-10 05:50] LABS: Basophils % (Auto) 0 % (0-2.5); Eosinophils # (Auto) 0.4 Thou/mm3 (0.0-0.5); Eosinophils % (Auto) 3 % (0-10); Hematocrit 25.1 % (41.0-53.0); Immature Granulocytes % (Auto) 1 % (0-0); Immature Granulocytes Auto 0.09 Thou/mm3 (0.00-0.00); Lymphocytes # (Auto) 3.8 Thou/mm3 (1.0-4.8); Lymphocytes % (Auto) 33 % (10-50); Mean Corpuscular HGB Conc 31.5 g/dl (31.0-37.0); Mean Corpuscular Hemoglobin 26.6 pg (25.0-35.0); Mean Corpuscular Volume 85 fL (80-100); Monocytes # (Auto) 1.1 Thou/mm3 (0.0-0.8); Monocytes % (Auto) 10 % (0-12); Neutrophils # (Auto) 5.9 Thou/mm3 (1.8-7.7); Neutrophils % (Auto) 53 % (37-80); Nucleated Red Blood Cell % 0 /100 WBC (0); Platelet Count 433 Thou/mm3 (140-440); Red Blood Count 2.97 Miln/mm3 (4.50-5.90); White Blood Count 11.2 Thou/mm3 (3.8-10.6)
[2024-03-10 05:53] LABS: Hemoglobin 7.9 g/dL (13.5-16.0)
[2024-03-10] MEDS: ceFAZolin/D5W 1 GM IVPB 1 GM/50 ML BAG IV ×3 (06:06→22:48)
[2024-03-10] MEDS: HYDROcodone/APAP 5/325 TABLET 1 TAB PO ×2 (11:08→20:27)
--- NOTE | 2024-03-10 13:09 | ESPR_ITS ---
Documentation for date of: 03/10/24 Subjective Subjective Brief History: Patient had spent extensive stay in the hospital following an intra-abdominal abscess that required multiple percutaneous drainage by the interventional radiologist. Patient was discharged about a month ago and he was followed by me in the office. But he had a slightly elevated WBC and the repeat CT scan showed some more collection in the subhepatic area. The radiologist felt that it could be drained percutaneously. Patient is therefore admitted for antibiotic therapy Narrative: The patient has some abdominal pain and required [place] but he is otherwise stable. Exam Vital Signs Temp Pulse Resp BP Pulse Ox O2 Del Method O2 Flow Rate 97.1 F 104 H 18 120/80 95 Room Air 2 03/10/24 12:00 03/10/24 12:00 03/10/24 12:03/10/24 12:03/10/24 12:03/10/24 12:00 03/08/24 20:00 His vital signs are normal other than persistent tachycardia around 100 Routine Abdominal Exam Comments: I irrigated the abdominal catheter and still has cloudy fluid obviously due to residual drainage on the right gutter Results Results: Laboratory Laboratory Narrative: Patient's WBC is down to 11,000 obviously due to drainage of the abscess Assessment & Plan Assessment Additional comments: There is no growth on the culture from the drainage Plan Plan: We shall hope fully discharge him in a day or 2
--- NOTE | 2024-03-10 15:00 | PC.SS ---
Rounding: Per Dr. Rubio notes, pt had irrigation of the abd cath, anticipate DC 1-2 days
--- NOTE | 2024-03-10 20:19 | PC.NURSE ---
Dr. Weiss at bedside and irrigated accordion drain tubing with normal saline irrigation solution using sterile gloves. Assisted Dr. Weiss, pt tolerated procedure well. Cárdenas drainage in drainage bag with light pinkish drain in tubing before irrigation. Cárdenas output after irrigation.
[2024-03-10] MEDS: MIRTAZAPINE 15 MG TABLET PO (22:47)
[2024-03-10] MEDS: METOPROLOL SUCCINATE XL 25 MG TABCR 50 MG PO (22:47)
[2024-03-11] VITALS: BP 91/70; PULSE 93; RESP 17; TEMP 36.7; O2SAT 98
[2024-03-11 04:00] VITALS: BP 109/73; PULSE 90; RESP 17; TEMP 36.6; O2SAT 99
[2024-03-11] MEDS: ceFAZolin/D5W 1 GM IVPB 1 GM/50 ML BAG IV ×2 (06:31→13:31)
[2024-03-11] MEDS: metroNIDAZOLE/NS 500 MG IVPB 500 MG/100 ML BAG 100 MG IV ×2 (07:20→14:09)
[2024-03-11 08:00] VITALS: BP 90/64; PULSE 90; RESP 16; TEMP 36.8; O2SAT 98
[2024-03-11 09:18] VITALS: BP 90/64; PULSE 88
--- NOTE | 2024-03-11 09:20 | XR_ITS ---
Examination: CT abdomen and pelvis without contrast. Coronal 3-D reconstructions. Sagittal 2-D reconstructions. Date and time of exam:March 11, 2024 1103 hours Comparison March 08, 2024 INDICATIONS: Post appendectomy patient with history abdominal abscess post CT-guided placement drainage catheter CTDI: vol (mGy): 6.92 DLP: (mGycm): 432 Technique: Axial images of the abdomen have been obtained, 3 mm slice thickness Intravenous contrast material has not been administered. Low dose protocols were performed. One or more of the following dose reduction techniques were used; automated exposure control, adjustment of the mA and/or KV according to patient size, use of iterative reconstruction technique. Findings: Mild bilateral pleural disease Atelectasis versus pneumonia at the lung bases Stable fluid collection lateral to the right lobe liver, 16 mm in thickness Abscess collection below the right lobe liver has markedly decreased in size compared to the prior study, the abscess drainage catheter in satisfactory position No bowel obstruction Urinary bladder intact IMPRESSION: The abscess collection below the right lobe liver has markedly decreased in size
[2024-03-11 12:00] VITALS: BP 104/72; PULSE 94; RESP 17; TEMP 36.7; O2SAT 99
--- NOTE | 2024-03-11 16:06 | PD.SURPROG ---
Documentation for date of: 03/11/24 Subjective Subjective Brief History: Patient had spent extensive stay in the hospital following an intra-abdominal abscess that required multiple percutaneous drainage by the interventional radiologist. Patient was discharged about a month ago and he was followed by me in the office. But he had a slightly elevated WBC and the repeat CT scan showed some more collection in the subhepatic area. The radiologist felt that it could be drained percutaneously. Patient is therefore admitted for antibiotic therapy Narrative: The patient is not draining in his catheter placed by the radiologist Exam Vital Signs Temp Pulse Resp BP Pulse Ox O2 Del Method O2 Flow Rate 98.0 F 94 17 104/72 99 Room Air 2 03/11/24 12:00 03/11/24 12:00 03/11/24 12:00 03/11/24 12:03/11/24 12:03/11/24 12:00 03/08/24 20:00 His vital signs are normal Routine Abdominal Exam Comments: Abdominal examination is unchanged Assessment & Plan Assessment Additional comments: Repeat CT scan shows the collection has improved Plan Plan: We shall remove the drain today and discharge him
--- NOTE | 2024-03-13 18:15 | PC.CM ---
Patient was in our hospital and seen by Dr. Weiss. We have that patient was opened to [facility]. We did not get orders for Dr. Weiss at discharge. I faxed information to [facility] and I asked if they could please reach out to patient's PCP to get the orders.
--- NOTE | 2024-03-15 08:22 | ESDS_ITS ---
RE: MAHOGANY MCCAIN : 1980 DATE OF ADMISSION: 03/07/2024 DATE OF DISCHARGE: 03/11/2024 18:15 DATE OF ADMISSION: 02/26/2024 DATE OF DISCHARGE: 03/11/2024 FINAL DIAGNOSES: Residual abdominal abscess, status post ileostomy, and open wound of the abdomen. PROCEDURES DONE: 1. Drainage of the intraabdominal abscess by the interventional radiologist. 2. Antibiotic therapy. HOSPITAL COURSE: The patient was admitted to the hospital because he was found to have leukocytosis. CT scan done as an outpatient showed some collection in the right gutter where the patient has had previous abscesses. It was felt by the radiologist that they could drain this. Therefore, he was brought electively to the emergency room and was admitted for drainage of the abscess. The patient was started on Ancef and Flagyl and he was given regular diet. He underwent drainage of the abscess on 03/08/2024 on Friday. Subsequently, patient was found to have very minimal drainage. The catheter was irrigated daily by me to clear the area. The patient's WBC returned to normal on 03/10/2024. A repeat CT scan was performed on 03/11/2024 and it showed considerable decrease in the size of the abscess, but he still had some atelectasis over the lung bases. The catheter was pulled out and patient was discharged. At time of discharge, he was allowed to resume his prehospital medications including metoprolol succinate and . He was given pain medication with [place]. He was also seen by the wound care nurse, who removed his wound VAC and placed simple dressing and taught the about how to change the dressing. In addition to that, home health also will follow this patient. The patient will be seen in my office in 1 week. DT: 16:51:59 TT: 17:26:00 Ref: [id number] - TID: [id number]
--- NOTE | 2024-03-15 10:02 | PC.CC ---
Spoke to Jayson who states they will see patient and soc is 03/17/23
== END 2024-03-11 18:15 | disposition home health service (06) | DRG 383 ==
PROVIDERS: Radiology Diagnostic Radiology; Admitting Provider Surgery; Visit Provider Surgery
DX: L02.211 Cutaneous abscess of abdominal wall (principal)
CPT/HCPCS: 36415; 74176; 75989; 80053; 85025; 85610; 85730; 87070; 87075; 87076; 87081; 87205; C1729; C1769; J0689; J3010; J3490; A9270; C1725; J0690; J1836

== ENCOUNTER → 2024-03-19 | Outpatient (CLI) | payer MEDICAID, SELFPAY ==
--- NOTE | 2024-03-15 10:00 | PC.CC ---
Spoke to Jayson who states they will see patient and soc is 03/17/23
== END | disposition home or self-care (01) ==
PROVIDERS: Visit Provider Surgery
DX: L02.211 Cutaneous abscess of abdominal wall (principal); T81.89XA Other complications of procedures, not elsewhere classified, initial encounter; D64.9 Anemia, unspecified
CPT/HCPCS: 11042; A9270

== ENCOUNTER → 2024-03-26 | Outpatient (CLI) | payer MEDICAID, SELFPAY | END | disposition home or self-care (01) | LOC: SWHD 08:33 | PROVIDERS: Visit Provider Student in an Organized Health Care Education/Training Program | DX: L02.211 Cutaneous abscess of abdominal wall (principal); T81.89XA Other complications of procedures, not elsewhere classified, initial encounter; D64.9 Anemia, unspecified | CPT/HCPCS: 97597; A9270 ==

== ENCOUNTER → 2024-04-01 | Outpatient (CLI) | payer MEDICAID, SELFPAY ==
--- NOTE | 2024-04-01 13:12 | XR_ITS ---
Examination: PA lateral chest 2 views TECHNIQUE: Upright PA lateral chest 2 views Exam date and time: April 01, 2024 1319 hours INDICATIONS: History pneumonia FINDINGS: Mild blunting of the right lateral costophrenic angle Normal heart size No lobar pneumonia IMPRESSION: No lobar pneumonia
== END | disposition home or self-care (01) ==
LOC: CDIM 12:49
PROVIDERS: PCP Family Medicine; Referring Provider Surgery; Visit Provider Surgery
DX: J18.9 Pneumonia, unspecified organism (principal)
CPT/HCPCS: 71046

== ENCOUNTER → 2024-04-09 | Outpatient (CLI) | payer MEDICAID, SELFPAY | END | disposition home or self-care (01) | LOC: SWHD 08:50 | PROVIDERS: Visit Provider Surgery | DX: L02.211 Cutaneous abscess of abdominal wall (principal); T81.89XA Other complications of procedures, not elsewhere classified, initial encounter; D64.9 Anemia, unspecified | CPT/HCPCS: 11042 ==

== ENCOUNTER 2024-04-14 09:46 | Outpatient (AMB) | payer MEDICAID, SELFPAY ==
[2024-04-14 10:07] VITALS: BP 106/74; PULSE 92; RESP 17; TEMP 36.2; O2SAT 99; BMI 26.9
--- NOTE | 2024-04-14 10:07 | ACNOTE_ITS ---
Vital Signs 04/14/24 10:07 Height 1.57 m Height Method Stated Weight 66.735 kg Weight Measurement Method Standing Scale BMI 26.9 BP 106/74 Blood Pressure Source Automatic Cuff Blood Pressure Location Left Upper Arm Position Sitting Respiration 17 Pulse 92 Pulse Source Monitor Temp 97.1 F Temp Source Oral Pulse Oximetry (%) 99 Oxygen Delivery Method Room Air Allergies/Meds Allergies & Medications Allergies No Known Allergies Allergy (Verified 04/19/24 11:56) Medication Reconciliation mirtazapine 15 mg tablet 15 mg PO HS #60 tabs 02/09/24 [Rx Confirmed 04/19/24] metoprolol succinate 50 mg tablet,extended release 24 hr 50 mg PO QDAY #90 tabs 02/10/24 [Rx Confirmed 04/19/24] hydrocodone 5 mg-acetaminophen 325 mg tablet 1 tab PO Q6H #25 tabs 03/11/24 [Rx Confirmed 04/19/24] MA Intake Visit Data Collection New Patient or Established: Established Patient (seen at [facility] within 3 years) Seen by Clinical Staff ONLY (RN/MA): No Pain Present Currently: No Pain scale:: 0 Pain Scale Used: Fernandez-Montanez/Numerical Can Filler Required: Yes PCP or OBGYN visit in last 3 months: No Hx Now: No Do You Feel Safe at Home: Yes Authorities Contacted: N/A Smoking Status Smoking Status: Former smoker Immunization / Flu Flu Vaccine in the Last 12 Months: No Flu Vaccine Exclusion Criteria: No Exclusion Criteria Past Medical History Past Medical History NEUROLOGIC: Negative Seizures CARDIAC: Negative Cardiac Disorders or Congestive Heart Failure RESPIRATORY: Negative Chronic Obstructive Pulmonary Disease (COPD) or Asthma GENITOURINARY: Negative Renal Disease ENDOCRINE: Negative Diabetes Mellitus Type 1 or Diabetes Mellitus Type 2 HEMATOLOGIC: Negative Sickle Cell Disease OTHER HISTORY: Negative Blood Transfusions, Blood Transfusion Reaction or Anesthesia Reactions Social History SMOKING STATUS: Smoking status: Former smoker ALCOHOL: Alcohol Intake: Former HOUSING: Housing: House LIVES WITH: Lives With: Family Patient Portal Cam Social History Living Situation History Housing: House Tobacco History Smoking Status: Former smoker Alcohol History Alcohol Intake: Former Domestic Abuse History Do You Feel Safe at Home: Yes Review of Systems Report any current symptoms Only answer those that you have currently: Past Medical History Past Medical History Have you ever been diagnosed with any of the following: Neurological Problems Seizures: No Cardiology Problems Congestive Heart Failure: No Respiratory Problems Chronic Obstructive Pulmonary Disease (COPD): No Asthma: No Genital/Urinary Problems Renal Disease: No Endocrine Problems Diabetes Mellitus Type 1: No Diabetes Mellitus Type 2: No Blood Problems Sickle Cell Disease: No Other Problems Blood Transfusions: No Blood Transfusion Reaction: No Anesthesia Reactions: No History of Present Illness HPI Narrative Andrew Pyle is here for post-op follow-up. He presented at [facility] with sepsis on 12/20/2023. He is s/p laparoscopic appendectomy 12/21/2023 followed by ex-lap for perforated small bowel on 12/28. Patient subsequently underwent CT- guided percutaneous drainage catheter placement for subphrenic abscess. Abdomen was closed on 12/31. Patient completed ABX inpatient and was discharged on 02/10/24. Reports mild pain, and a single episode of vomiting-green content today but has been tolerating oral diet since then. Passing soft, brown stool through ostomy bag which he has not replaced since discharge. Denies fever, headaches, chest pain, sob, diarrhea, blood in stool, discharge or bleeding from wound vac or incision sites. He continued on wound vac which contains small amount of brown fluid, without blood or puss. Ostomy claudine with soft brown stool, no blood. Dressing inplace and intact. 04/14/2024: Patient was seen in [facility], for ollow up after hospital discharge. The Patient was admitted to the hospital on 03/02/24 for un elective procedure. During that admission the patient presented to the ED with bdominal dicamfort , found to have a leukocitosis and CT revealed intraabdominal abscess. The patient recieved IV abx and intra-abdominal abscess was drained by interventional radiologist. Once pt was stabilized he was DC with follow up care arranged with general surgery. Today patient presents without new complains., He reports ongoing generalized abd tenderness which has been present since the initial admission.Last lab was done on March this year. Patient has upcoming appointment with Dr. Rubio. we will follow up with him in a month.All questions and concerns were adressed. Patient gave verbalized understanding. Objective/Exam Narrative Physical exam: GENERAL: no acute distress, AAO x3,mongolian speaker HEENT: Head AT/ NC. Mucous membranes moist. PERRL. NECK: Supple, no lymphadenopathy, no carotid bruits. CARDIOVASCULAR: RRR. Normal S1/S2, No m/r/g. No pitting edema of bilateral LEs. RESPIRATORY: CTAB. No wheezing, rhonchi, crackles. GASTROINTESTINAL: Abdomen soft, generalized tenderness, colostomy bag noted, dressing clean and dry. Abd well appearing , no signs of peritonitis, MUSCULOSKELETAL:? No cyanosis or edema, no visible joint swelling. NEUROLOGICAL: CN II-XII grossly intact. No focal deficits. Sensation intact, symmetric. PSYCHIATRIC: Awake and alert, not agitated, normal mood and affect. INTEGUMENTARY: No obvious rashes, no jaundice, normal turgor. Assessment & Plan Diagnosis / Problem List (1) Tachycardia: Status: Acute Assessment & Plan: Heart rate in 90s, consistent with prior visits. Plan: Continue metoprolol (2) Abdominal pain: Status: Acute Assessment & Plan: Secondary to multiple surgical procedures (appendectomy, exploratory lap for perforated bowel with colostomy, recent drainage of abdominal abscess) and residual midline surgical wound Plan: Continue with wound care. Narcotic pain medication previously prescribed by surgery service. (3) S/P appendectomy: Status: Acute Plan: Plan as above . (4) Encounter for surgical aftercare following surgery on the digestive system: Status: Acute Assessment & Plan: The Patient was admitted to the hospital on 03/02/24 for elective procedure. During that admission the patient presented to the ED with abdominal discomfort, found to have a leukocytosis and CT revealed intraabdominal abscess. The patient recieved IV abx and intra-abdominal abscess was drained by interventional radiologist. Once pt was stabilized he was DC with follow up care arranged with general surgery. Plan: f/u with general surgery with Dr. Ling this week, f/u with wound supply clinic as instructed by gen-surg, continue appointments weekly with wound care, Home health care to continue dressing changes, continue pain management as needed. Return to emergency room if symptoms persist, worsen, or new symptoms including fever, chills, bleeding, nausea/vomiting develop. Follow general-surgery recommendations Additional Assessment Internal Medicine Attending Note: Case discussed with and agree with note and management plan of Resident Physician as per Resident's Note above. Issues of concern for present visit are as follows: Follow-up visit. Patient continuing to follow with wound care for midline abdominal wound. Has had debridement performed intermittently. Wound is improving, smaller than original, mostly granulated. He does not have a wound VAC. Dressing changes 3 times a week, being performed twice by home health and once at wound care. Colostomy site intact. Continue to follow with general surgery. Plans for reversal of colostomy at some point in the future. Still reporting some generalized abdominal tenderness present since initial presentation in December. Patient has been on metoprolol for tachycardia, heart rate stable today as is his blood pressure, though still with heart rate in the 90s. Continue to monitor. No other acute issues today. Follow-up in 1 month. Heraclio Malave MD Physician Billing Established Patient Established Patient: E/M Level 3-CPT 56269 Office Procedures [facility] Level of Care Nursing/Assessment Patient Status: Established Patient Nursing Assessment/Reassessment: Medication Reconciliation, Update PMH in EMR and Vital Signs Coordination of Care: Complex Care and Chronic Disease 1-5, Consent,records obtained, informed consent, Education Simp Pt/Fam, Lab and Imaging orders and Staff clarify orders Established Patient Charge Established Patient Point Assignment: 100 Established Patient Point Charge: EP Level 3 (80-115)
== END 2024-04-14 10:43 | disposition home or self-care (01) ==
LOC: HODAHC 09:46
PROVIDERS: Supervising Provider Internal Medicine; Visit Provider Student in an Organized Health Care Education/Training Program
DX: R10.817 Generalized abdominal tenderness (principal); Z93.3 Colostomy status; R00.0 Tachycardia, unspecified
CPT/HCPCS: 99213; G0463

== ENCOUNTER → 2024-04-16 | Outpatient (CLI) | payer MEDICAID, SELFPAY | END | disposition home or self-care (01) | LOC: SWHD 08:43 | PROVIDERS: Visit Provider Physician Assistant | DX: L02.211 Cutaneous abscess of abdominal wall (principal); T81.89XA Other complications of procedures, not elsewhere classified, initial encounter; D64.9 Anemia, unspecified | CPT/HCPCS: 97597; A9270 ==

== ENCOUNTER → 2024-04-30 | Outpatient (CLI) | payer MEDICAID, SELFPAY | END | disposition home or self-care (01) | LOC: SWHD 13:12 | PROVIDERS: Visit Provider Surgery | DX: L02.211 Cutaneous abscess of abdominal wall (principal); T81.89XA Other complications of procedures, not elsewhere classified, initial encounter; D64.9 Anemia, unspecified | CPT/HCPCS: 99212; A9270; G0463 ==

== ENCOUNTER → 2024-05-21 | Outpatient (CLI) | payer MEDICAID, SELFPAY | END | disposition home or self-care (01) | LOC: SWHD 08:20 | PROVIDERS: Visit Provider Student in an Organized Health Care Education/Training Program | DX: L02.211 Cutaneous abscess of abdominal wall (principal); T81.89XA Other complications of procedures, not elsewhere classified, initial encounter; D64.9 Anemia, unspecified | CPT/HCPCS: 99213; A9270; G0463 ==

== ENCOUNTER → 2024-05-28 | Outpatient (CLI) | payer MEDICAID, SELFPAY | END | disposition home or self-care (01) | LOC: SWHD 13:23 | PROVIDERS: Visit Provider Surgery | DX: L02.211 Cutaneous abscess of abdominal wall (principal); T81.89XA Other complications of procedures, not elsewhere classified, initial encounter; D64.9 Anemia, unspecified | CPT/HCPCS: 99213; A9270; G0463 ==

== ENCOUNTER 2024-08-03 15:59 | Emergency (ER) | payer MEDICAID, SELFPAY ==
[2024-08-03 16:00] VITALS: BMI 28.5
[2024-08-03 16:47] VITALS: BP 140/91; PULSE 86; RESP 18; TEMP 37; O2SAT 99
--- NOTE | 2024-08-03 16:51 | EDNOTE_ITS ---
ED General RME/HPI General Chief complaint: Chest Pain Stated complaint: CHEST PAIN X30 MINS WITH THROAT PAIN WITH N/V Time Seen by Provider: 08/03/24 16:15 Arrival date/time: 08/03/24 15:59 RME / HPI RME / HPI narrative: 44-year-old male presents to the ED with a 30-minute complaint of sore throat, choking episode, and vomiting blood-tinged sputum. He denies swallowing anything sharp, stating his last oral intake was this morning. 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 He denies any recent illness with fever, chills, upper respiratory complaints, diarrhea or abdominal pain. Related Data Previous Rx's ?Medication ?Instructions ?Recorded mirtazapine 15 mg tablet 15 mg PO HS #60 tabs 4 metoprolol succinate 50 mg 50 mg PO QDAY #90 tabs 05/31 tablet,extended release 24 hr hydrocodone 5 mg-acetaminophen 325 1 tab PO Q6H #25 ta bs 03/11/24 mg tablet albuterol sulfate 90 mcg/actuation 2 puff inhalation Q 4H PRN 08/03/24 aerosol inhaler shortness of breath or wheez ing #8.5 grams oseltamivir 75 mg capsule (Tamiflu) 75 mg PO BID 5 day s #10 caps 08/03/24 Allergies Allergy/AdvReac Type Severity Reaction Status Date / Time No Known Allergies Allergy Verified 08/03/24 16:02 Review of Systems Review of Systems Systems Reviewed: All systems reviewed, normal except as documented Past Medical History Past Medical History NEUROLOGIC: Negative Seizures CARDIAC: Negative Cardiac Disorders or Congestive Heart Failure RESPIRATORY: Negative Chronic Obstructive Pulmonary Disease (COPD) or Asthma GENITOURINARY: Negative Renal Disease ENDOCRINE: Negative Diabetes Mellitus Type 1 or Diabetes Mellitus Type 2 HEMATOLOGIC: Negative Sickle Cell Disease OTHER HISTORY: Negative Blood Transfusions, Blood Transfusion Reaction or Anesthesia Reactions Social History SMOKING STATUS: Never smoker ED Exam Narrative Physical exam: Alert and oriented 44-year-old male, no acute respiratory distress. Oxygen sat is 99% on room air. Respirations are 18 and nonlabored, temperature is 98.6. Lungs are diminished at the bases. Regular rate and rhythm without murmurs. General General appearance: Present alert and in no apparent distress Head Head exam: Present atraumatic and normal inspection Eye Eye exam: Present normal appearance; Absent scleral icterus or conjunctival injection ENT ENT exam: Present normal exam Neck Neck exam: Present normal inspection Chest Chest inspection: Present normal inspection Respiratory Respiratory exam: Absent respiratory distress Cardiovascular Cardiovascular exam: Present regular rate and normal rhythm Abdominal Exam Abdominal exam: Absent distention Rectal Exam Rectal exam: Present deferred Extremities Exam Extremities exam: Present normal inspection Back Exam Back exam: Present full ROM Neurological Exam Neurological exam: Present alert and oriented X3 Psychiatric Psychiatric exam: Present normal affect and normal mood Skin Skin exam: Present warm, dry, intact and normal color Course Quality Measures none Orders Category Date Time Status Bedside Influenza A&B Antigen Test NOW Care 08/03/24 16:54 Completed XR chest 2V Stat Exams 08/03/24 16:53 Completed XR soft tissue neck Stat Exams 08/03/24 16:53 Completed Strep A Rapid Stat Lab 08/03/24 17:00 Completed Vital Signs Vital signs: Vital Signs Temperature 98.6 F 08/03/24 16:47 Pulse Rate 86 08/03/24 16:47 Respiratory Rate 18 08/03/24 16:47 Blood Pressure 140/91 H 08/03/24 16:47 Pulse Oximetry (%) 99 08/03/24 16:47 Oxygen Delivery Method Room Air 08/03/24 16:47 Discharge Plan Plan Patient Disposition: HOME (Self Care) Discharge Disposition comment: Stable Prescriptions/Referrals Prescriptions/Med Rec: New oseltamivir [Tamiflu] 75 mg capsule 75 mg PO BID 5 Days Qty: 10 0RF albuterol sulfate 90 mcg/actuation HFA aerosol inhaler 2 puff inhalation Q4H PRN (Reason: shortness of breath or wheezing) Qty: 8.5 0RF No Action mirtazapine 15 mg Tablet 15 mg PO HS Qty: 60 0RF metoprolol succinate 50 mg tablet extended release 24 hr 50 mg PO QDAY Qty: 90 0RF hydrocodone-acetaminophen 5-325 mg tablet 1 tab PO Q6H MDD 4 Qty: 25 0RF Referrals: Nayan Leung MD [Primary Care Provider] - In 1 week Problem List Clinical Impression: Influenza Patient/Caregiver Discharge Instructions Education Materials: ED Influenza (Adult) Additional Instructions: Follow-up with your primary care physician in 24 to 48 hours. Return to the ED for any new or worsening symptoms. Print Language: Ukrainian Stand Alone Forms: Shira Award Info., Patient Portal Info Letter PA/PC SUPPORT SPECIALIST Supervising Physician PA/PC SUPPORT SPECIALIST Supervising Physician: Dr Smith
--- NOTE | 2024-08-03 16:53 | XR_ITS ---
Examination: AP lateral soft tissue neck 2 views TECHNIQUE: AP lateral soft tissue neck 2 views Date and time: August 03, 2024 1814 hours INDICATIONS: Choked on foreign body today. FINDINGS: Normal epiglottis. No distention of hypopharynx. No opaque foreign body IMPRESSION: No opaque foreign body
--- NOTE | 2024-08-03 16:53 | XR_ITS ---
Examination: PA lateral chest 2 views TECHNIQUE: Upright PA and lateral chest 2 views Date and time: August 03, 2024 1808 hours Comparison April 01, 2024 INDICATIONS: Choked on foreign body today. FINDINGS: Stable blunting of the right lateral costophrenic angle. No aspiration pneumonia Normal heart size Moderate osteopenia IMPRESSION: Negative for aspiration pneumonia
[2024-08-03 17:27] LABS: Strep A Rapid Negative (Negative)
== END 2024-08-03 20:26 | disposition home or self-care (01) ==
PROVIDERS: Physician Assistant; Emergency Provider Emergency Medicine; PCP Family Medicine
DX: J11.1 Influenza due to unidentified influenza virus with other respiratory manifestations (principal)
CPT/HCPCS: 70360; 71046; 87400; 87651; 99283

== ENCOUNTER 2025-01-17 11:55 | Day surgery (SDC) | payer MEDICAID, SELFPAY ==
[2025-01-14 15:42] LABS: Alanine Aminotransferase 24 U/L (10-49); Albumin, Serum 5.2 gm/dL (3.5-5.0); Albumin/Globulin Ratio 1.8 (1.2-2.2); Alkaline Phosphatase 118 U/L (46-116); Anion Gap 10 (7-16); Aspartate Amino Transferase 20 U/L (0-34); BUN/Creatinine Ratio 12 Ratio (12-20); Bilirubin,Total 0.4 mg/dL (0.3-1.2); Blood Urea Nitrogen 13 mg/dL (9-23); Calcium 9.3 mg/dL (8.3-10.6); Calcium (Corrected) 9.3 mg/dL (8.5-10.1); Carbon Dioxide 24.8 mMol/L (20.0-31.0); Chloride 105 mMol/L (98-107); Creatinine (Component) 1.1 mg/dL (0.6-1.3); Globulin 2.9 gm/dL (2.3-3.5); Glucose 105 mg/dL (74-106); Osmolality,Calculated 279 (275-295); Potassium 3.9 mMol/L (3.4-5.1); Sodium 140 mMol/L (136-145); Total Protein 8.1 gm/dL (5.7-8.2); eGFR > 60 See Note
[2025-01-17] VITALS (7 sets, daily range): BP systolic 114–131; BP diastolic 75–86; PULSE 88–95; RESP 10–15; TEMP 36.6–37.1; O2SAT 98–99; BMI 31.4
[2025-01-17] MEDS: RINGERS LACTATED 1000 ML 1,000 ML 20 ML IV (14:05)
--- NOTE | 2025-01-17 15:01 | ESCONSULT_ITS ---
RE: KALYNMAHOGANY : 1980 DATE OF CONSULTATION: 01/17/2025 PREOPERATIVE DIAGNOSIS: Status post ileostomy following injury to the ileum during the time of appendectomy. PROCEDURE: Attempted colonoscopy. INDICATION OF PROCEDURE: This patient was scheduled for colonoscopy to evaluate the colon before doing ileocolonic anastomosis. After the patient was brought to the operating room, he was kept on left lateral position and sedation was given by Dr Jones. Then the scope was advanced into the rectum and I found out that the patient had solid stools in the rectum as well as in the rectosigmoid. Therefore the procedure cannot be done and it was terminated. DT: 14:19:45 TT: 15:00:00 Ref: [id number] - TID: [id number]
== END 2025-01-17 14:49 | disposition home or self-care (01) ==
PROVIDERS: Anesthesiology; PCP Family Medicine; Referring Provider Surgery; Visit Provider Surgery
PROC: 0DBE8ZX Excision of Large Intestine, Via Natural or Artificial Opening Endoscopic, Diagnostic (ICD-10-PCS; CPT 45380; principal; 2025-01-17 13:00)
DX: Z43.2 Encounter for attention to ileostomy (principal)
CPT/HCPCS: 45378; 36415; 80053; A4649; J7120